=== PATIENT | female | born 1990 | race Caucasian/White ===

== ENCOUNTER 2024-04-22 19:51 | Outpatient (REF) | payer OTHER, SELFPAY | END 2024-04-22 19:52 | disposition home or self-care (01) | LOC: LAB 19:51 | PROVIDERS: Visit Provider Physician Assistant | DX: Z01.419 Encounter for gynecological examination (general) (routine) without abnormal findings (principal) | CPT/HCPCS: 87624; 88175 ==

== ENCOUNTER 2025-02-14 09:08 | Outpatient (OUT) | payer OTHER, SELFPAY ==
--- OUTSIDE RECORDS SUMMARY | 2025-02-14 09:12 | XMS_ITS | CCD ---
Author Organization [facility] Care Team Providers Care Senior Customer Service Representative Name Role Phone Genet Josue Unavailable Unavail able Li Guillen F Primary Care Provider Li Guillen F Primary Care Provider BOOM MCCARTHY Attending Unavailable VERA, JENNIE Referring Unavailable MANDI GUILLENACE F Primary Care Unavailable VERA, JENNIE Attending Unavailable ZMANDI SILVERACE F Primary Care Unavailable DIANE CASAREZ Attending Unavailable ELIANE, SHARMILA Attending Unavailable Unavailable Primary Care Provider UnavailJAMES Cavanaugh Primary Care Unavailable JAMES ROMERO Primary Care Unavailable ELIANE, Sharmila R Admitting Unavailable ELIANE, Sharmila R Attending Unavailable JAMES ROMERO Attending Unavailable JAMES ROMERO Admitting Unavailable JAMES ROMERO Primary Care Unavailable JAMES ROMERO M Primary Care Unavailable JAMES ROMERO Attending Unavailable Brianna Ashton Attending Unavailable JAMES ROMERO Primary Care Unavailable SANDRITA SEGOVIA Attending UnavailJAMES Cavanaugh Primary Care Unavailable SANDRITA SEGOVIA Attending UnavailJAMES Cavanaugh Primary Care Unavailable JAMES ROMERO Primary Care Unavailable SANDRITA SEGOVIA Attending UnavailASHISH Ramirez Primary Care Physician ELIANE, Sharmila R Attending Unavailable ELIANE, Sharmila R Admitting Unavailable ELIANE, Sharmila R Attending Unavailable ELIANE, Sharmila R Referring Unavailable ELIANE, Sharmila R Admitting Unavailable Daisha, Brianna L Admitting Unavailable Daisha, Brianna Araujo Attending Unavailable Daisha, Brianna L Attending Unavailable ELIANE, Sharmila R Attending Unavailable ELIANE, Sharmila R Admitting Unavailable ELIANE, Sharmila R Attending Unavailable Sharmila DEL RIO Admitting Unavailable Medications Current Medications Medication Drug Class(es) Dates Sig (Normalized) Sig (Original) letrozole 2.5 mg oral tablet (2 sources) Aromatase Inhibitor Start: 11-04-2024 End: 11-09-2024 take 1 tablet by mouth once daily letrozole (Femara) 2.5 MG chemo tablet Indications: Encounter for infertility , PCOS (polycystic ovarian syndrome) , Abnormal uterine bleeding (AUB) Take 1 tablet (2.5 mg total) by mouth Daily for 5 days. Take with or without food. 5 tablet 11/04/2024 11/09/2024 Active 24 hr metFORMIN hydrochloride 500 mg extended release oral tablet (2 sources) Biguanide Start: 11-04-2024 End: 11-04-2025 take 1 tablet by mouth every twenty-four hours at mealtime metFORMIN XR (Glucophage-XR) 500 MG 24 hr tablet Indications: PCOS (polycystic ovarian syndrome) , Abnormal uterine bleeding (AUB) Take 1 tablet (500 mg) by mouth in the evening. Take with meals Do not crush, chew, or split. 30 tablet 11 11/04/2024 11/04/2025 Active ondansetron 4 mg oral tablet (9 sources) Serotonin-3 Receptor Antagonist Start: 10-20-2024 take 1 tablet by mouth every six hours as needed for nausea ondansetron 4 mg Tab 4 mg = 1 tab(s), Oral, q6hr, PRN Nausea/Vomiting, # 10 tab(s), Refills(s) 0, Pharmacy: [facility], 166, cm, 07/25/24 9:47:00 EST, Height/Length Dosing, 92.6, kg, 07/25/24 9:47:00 EST, Weight Dosing Start Date: 10/20/24 Status: Ordered Quantity: 10.0 Unit: tab(s) Repeat number: 1 Start: 02-04-2021 ondansetron (Z OFRAN) 4 mg tablet Take 4 mg by mouth. 0 02/04/2021 Active Start: 09-02-2012 take 1 tablet by irene th every eight hours as needed ondansetron orally disintegrating 4 mg disintegrating tablet Take 1 tablet by mouth every 8 hours as needed for Nausea/Vomiting. 8 tablet 0 09/02/2012 Active ondansetron (Zof ran) 4 MG tablet Take 8 mg by mouth if needed for nausea or vomiting Active Comment on above: Take 1 tablet by irene th every 8 hours as needed for Nausea/Vomiting. Take 4 mg by mouth. tropicamide 10 mg/ml ophthalmic solution (1 source) Anticholinergic Start: 10-11-2021 End: 10-12-2021 tropicamide 1 % 1 Drop (MYDRIACYL) Completed/Discontinued Medications Medication Drug Class(es) Dates Sig (Normalized) Sig (Original) azithromycin 250 mg oral tablet (1 source) Macrolide Antimicrobial take 1 tablet by mouth once daily azithromycin 250 mg tablet Take 250 mg by mouth once daily. 0 Active Comment on above: Take 250 mg by mouth once daily. levonorgestrel 0.258921 mg/hr intrauterine system (1 source) Progestin, Progestin-containing Intrauterine Device levonorgestrel (MIRENA) 20 mcg/24 hours (7 yrs) 52 mg IUD 1 Each by INTRAUTERINE route. 0 Active Comment on above: 1 Each by INTRAUTERI NE route. phentermine hydrochloride 37.5 mg oral tablet (4 sources) Sympathomimetic Amine Anorectic Start: 07-25-2024 phentermine 37.5 mg Tab 37.5 mg = 1 tab(s), Oral, Daily, 30 EA, 0 Refill(s), TAKE 1 TABLET BY MOUTH EVERY MORNING (BEFORE BREAKFAST) FOR 30 DAYS., # 30 tab(s), Refills(s) 0, Pharmacy: [facility], 166, cm, 07/25/24 9:47:00 EST, Height/Length Dosing, 92.6, kg, 07/25/24 9:47:00 EST, Weight Dosing Start Date: 07/25/24 Status: Ordered Quantity: 30.0 Unit: tab(s) Repeat number: 1 predniSONE 20 mg oral tablet (1 source) Start: 09-02-2012 take 1 tablet by mouth twice daily predniSONE 20 mg tablet Take 1 tablet by mouth twice daily. 8 tablet 0 09/02/2012 Active Comment on above: Take 1 tablet by irene th twice daily. triamcinolone acetonide 0.001 mg/mg topical ointment (4 sources) Corticosteroid Start: 03-30-2021 triamcinolone acetonide (KENALOG) 0.1 % ointment triamcinolone (K enalog) 0.5 % cream Apply topically if needed Active Problems Active Problems Problem Classification Problem Date Documented Da te Episodic/Chronic Blindness and vision defects (2 sources) Disorder of refraction; Translations: [Unspecified disorder of refraction] Episodic Contraceptive and procreative management (2 sources) Patient encounter status; Translations: [Encounter for procreative management, unspecified] 11-04-2024 Episodic Other endocrine disorders (2 sources) Polycystic ovary syndrome; Translations: [Polycystic ovarian syndrome] 11-04-2024 Chronic Other endocrine disorders (2 sources) Disorder of endocrine system; Translations: [Endocrine disorder, unspecified] 11-04-2024 Episodic Other female genital disorders (2 sources) Abnormal uterine bleeding; Translations: [Abnormal uterine and vaginal bleeding, unspecified] 11-04-2024 Chronic Other nutritional; endocrine; and metabolic disorders (4 sources) Body mass index 30+ - obesity 07-25-2024 Chronic Other nutritional; endocrine; and metabolic disorders (4 sources) Obesity 06-16-2020 Chronic Other nutritional; endocrine; and metabolic disorders (4 sources) Weight gain 05-19-2020 Episodic Unclassified (2 sources) Contusion of lower back and pelvis, initial encounter / S30.0XXA(ICD-10) Onset: 10-08-2017 Unclassified (12 sources) Patient encounter status 05-10-2020 Past or Other Problems Problem Classification Problem Date Documented Da te Episodic/Chronic Fracture of lower limb (2 sources) Closed fracture of ankle; Translations: [Other fracture of unspecified lower leg, initial encounter for closed fracture] Onset: 08-08-2006 09-02-2012 Episodic Unclassified (1 source) Contusion of lower back and pelvis, initial encounter; Translations: [Contusion of lower back and pelvis, initial encounter] Onset: 10-08-2017 Results Test Name Value Interpretation Reference Range Facility DHEAon 12-30-2024 DHEA [Mass/Vol] 139 ng/dL Invalid Interpretation Code 31-701 [facility] Comment on above: Result Comment: This test was developed and its performance characteristics determined by [facility]. It has not been cleared or approved by the Food and Drug Administration. Performed at: [address] [id number] MD Everett Buckner Performed By: #### 1 [id number] #### [facility] [address] [place] [address] Progesteroneon 11-25-2024 Progesterone Lvl 5.59 ng/mL Invalid Interpretation Code [facility] Comment on above: Result Comment: 'F N ON FOLLICULAR = 0.10 - 0.60' 'LUTEAL = 3.00 - 17.5' 'MIDLUTEAL = 3.30 - 18.6' 'POST-MENOPAUSE = 0.10 - 0.40' '-FIRST TRIMESTER = 8.30 - 66.5' 'SECOND TRIMESTER = 18.9 - 66.1' 'THIRD TRIMESTER = 35.8 - 312.4' 'MALES = 0.14 - 2.06' Performed By: #### 2 [id number] #### [facility] [address] [place] [address] US Pelvis Non-OB Completeon 11-12-2024 US Pelvis Non-OB Complete Exam Date/Time: 11/11/2024 12:54 EST Reason for Exam: E28.2 Report IMPRESSION: Negative pelvic ultrasound. CLINICAL HISTORY: E28.2 COMPARISONS: None available. TECHNICAL FACTORS: Transabdominal and transvaginal sonography with transvaginal imaging was obtained to better assess pelvic anatomy. FINDINGS: Uterus: Normal in size, shape, and echogenicity. Endometrium: Normal in appearance. Right ovary: Normal in size, shape, and echogenicity. Color flow and Doppler without anomaly. Left ovary: Normal in size, shape, and echogenicity. Color flow and Doppler without anomaly. Free fluid: None Adnexal masses: None The uterus measurements and an estimated volume are: Uterus Length: 8.3 cm Uterus Width: 4.8 cm Uterus Height: 3.2 cm Uterus Volume: 66.9 cm3 Endometrium Thickness: 0.3 cm The right ovary measurements and an estimated volume are: Right Ovary Length: 3.4 cm Right Ovary Width: 2.3 cm Right Ovary Height: 2.2 cm Right Ovary Volume: 9.1 cm3 The left ovary measurements and an estimated volume are: Left Ovary Length: 3.5 cm Left Ovary Width: 2.6 cm Left Ovary Height: 2.3 cm Report Left Ovary Volume: 11.1 cm3 Ordering Provider: Sharmila DEL RIO FINAL REPORT Dictated: 11/12/2024 12:14 pm Desmond Quinteros MD Signed (Electronic Signature): 11/12/2024 12:14 pm Signed by: Desmond Quinteros MD Transcribed by: MARVA Technologist: Norman CLEMENS [facility] US Transvaginal Non-OBon US Transvaginal Non-OB Exam Date/Time: 11/11/2024 12:54 EST Reason for Exam: E28.2 Report See ultrasound pelvis non-OB for report of ultrasound pelvis transvaginal. Ordering Provider: Sharmila DEL RIO FINAL REPORT Dictated: 11/12/2024 12:14 pm Desmond Quinteros MD Signed (Electronic Signature): 11/12/2024 12:14 pm Signed by: Desmond Quinteros MD Transcribed by: MARVA Technologist: Norman CLEMENS [facility] Anti-Mullerian Hormone (AMH) on 11-10-2024 Mullerian inhibiting substance [Mass/Vol] 5.77 ng/mL Invalid Interpretation Code [facility] Comment on above: Result Comment: For assays employing antibodies, the possibility exists for interference by heterophile antibodies in the samples.1 1.Andre Araujo. Interferences in Immunoassays - still a threat. Clin. Chem. 2000; 46: 9786-1049. This test was developed and its performance characteristics determined by [employer] [facility]. It has not been cleared or approved by the Food and Drug Administration. Reference Range: Females 36 - 40y: 0.42 - 8.34 Median 1.69 AMH concentrations of >= 1.06 ng/mL is correlated with a better response to ovarian stimulation, produced more retrievable oocytes and higher odds of live according to Anjalier et al. Fertility and Sterility. 2010: 94:6696-9089. The current AMH test method correlates with the study method with a slope of 0.94. Females at risk of ovarian hyperstimulation syndrome or polycystic ovarian syndrome (PCOS) may exhibit elevated serum AMH concentrations. AMH levels from PCOS patients may be 2 to 5 fold higher than age-appropriate reference interval values. Granulosa cell tumors of the ovary may secrete AMH along with other tumor markers. Elevated AMH is not specific for malignancy, and the assay should not be used exclusively to diagnose or exclude an AMH-secreting ovarian tumor. Performed at: [facility] [address] [place], [place] [id number] MD Rajeev Lala Performed By: #### 1 [id number] #### [facility] [address] [place] [address] DHEAon 11-10-2024 DHEA [Mass/Vol] 101 ng/dL Invalid Interpretation Code 31-311 [facility] Comment on above: Result Comment: This test was developed and its performance characteristics determined by [facility]. It has not been cleared or approved by the Food and Drug Administration. Performed at: [address] [id number] MD Everett Buckner Performed By: #### 1 [id number] #### [facility] [address] [place] [address] DHEASon 11-10-2024 DHEA-S [Mass/Vol] 91.8 microgram/dL Invalid Interpretation Code 57.3-279.2 [facility] Comment on above: Result Comment: Perf ormed at: [address] [id number] PhD Bianca Gordon Performed By: #### 1 [id number] #### [facility] [address] [place] [address] FSHon 11-07-2024 Follitropin Qn 5.2 m[IU]/mL Invalid Interpretation Code [facility] Comment on above: Result Comment: Adul t Female Range Follicular phase 3.5 - 12.5 Ovulation phase 4.7 - 21.5 Luteal phase 1.7 - 7.7 Postmenopausal 25.8 - 134.8 Performed at: [address] [id number] PhD Bianca Gordon Performed By: #### 2 [id number] #### [facility] [address] [place] [address] LHon 11-07-2024 Lutropin Qn 11.1 m[IU]/mL Invalid Interpretation Code [facility] Comment on above: Result Comment: Adul t Female Range Follicular phase 2.4 - 12.6 Ovulation phase 14.0 - 95.6 Luteal phase 1.0 - 11.4 Postmenopausal 7.7 - 58.5 Performed at: [address] [id number] PhD Bianca Gordon Performed By: #### 2 [id number] #### [facility] [address] [place] [address] BhCG Quanton 11-05-2024 HCG.beta subunit Qn m[IU]/mL Normal 1-3 [facility] Comment on above: Result Comment: 'F N ON < 1 - 3' ' 0.2 - 1 WEEK = 5 TO 50' ' 1 - 2 WEEKS = 50 - 500' ' 2 - 3 WEEKS = 100 - 5000' ' 3 - 4 WEEKS = 500 - 11665' ' 4 - 5 WEEKS = 1000 - 09289' ' 5 - 6 WEEKS = 77759 - 240026' ' 6 - 8 WEEKS = 31587 - 827195' ' 8 - 12 WEEKS = 41695 - 119347' Performed By: #### 2 [id number] #### [facility] [address] [place] [address] CBC w/ Auto Diffon 5 Basophils/100 WBC (Bld) 0.6 % Normal 0.0-2.0 [facility] Comment on above: Performed By: #### 2 [id number] #### [facility] [address] [place] [address] Basophils/Leukocytes Auto (Bld) [Pure # fraction] 0.0 E9/L Normal 0.0-0.2 [facility] Comment on above: Performed By: #### 2 [id number] #### [facility] [address] [place] [address] Eosinophils (Bld) [#/Vol] 0.1 E9/L Normal 0.0-0.5 [facility] Comment on above: Performed By: #### 2 [id number] #### [facility] [address] [place] [address] Eosinophils/100 WBC (Bld) 0.7 % Normal 0.0-8.0 [facility] Comment on above: Performed By: #### 2 [id number] #### [facility] [address] [place] [address] Erythrocyte distribution width (RBC) [Ratio] 14.0 % Normal 10.9-14.2 [facility] Comment on above: Performed By: #### 2 [id number] #### [facility] [address] [place] [address] Hematocrit (Bld) [Volume fraction] 44.7 % Normal 34.0-46.0 [facility] Comment on above: Performed By: #### 2 [id number] #### [facility] [address] [place] [address] Hemoglobin (Bld) [Mass/Vol] 15.0 g/dL Normal 12.0-16.0 [facility] Comment on above: Performed By: #### 2 [id number] #### [facility] [address] [place] [address] Lymphocytes (Bld) [#/Vol] 2.3 E9/L Normal 1.0-4.0 [facility] Comment on above: Performed By: #### 2 [id number] #### [facility] [address] [place] [address] Lymphocytes/100 WBC (Bld) 26.2 % Normal 14.0-50.0 [facility] Comment on above: Performed By: #### 2 [id number] #### [facility] [address] [place] [address] MCH (RBC) [Entitic mass] 27.3 pg Normal 27.0-34.0 [facility] Comment on above: Performed By: #### 2 [id number] #### [facility] [address] [place] [address] MCHC (RBC) [Mass/Vol] 33.5 g/dL Normal 31.4-36.0 [facility] Comment on above: Performed By: #### 2 [id number] #### [facility] [address] [place] [address] MCV (RBC) [Entitic vol] 81.3 fL Normal 80.0-100.0 [facility] Comment on above: Performed By: #### 2 [id number] #### [facility] [address] [place] [address] Monocytes (Bld) [#/Vol] 0.5 E9/L Normal 0.2-1.0 [facility] Comment on above: Performed By: #### 2 [id number] #### [facility] [address] [place] [address] Neutrophils (Bld) [#/Vol] 5.7 E9/L Normal 2.0-7.5 [facility] Comment on above: Performed By: #### 2 [id number] #### [facility] [address] [place] [address] Neutrophils/100 WBC (Bld) 66.3 % Normal 36.0-75.0 [facility] Comment on above: Performed By: #### 2 [id number] #### [facility] [address] [place] [address] Platelet mean volume (Bld) [Entitic vol] 7.5 fL Normal 6.4-10.8 [facility] Comment on above: Performed By: #### 2 [id number] #### [facility] [address] [place] [address] Platelets (Bld) [#/Vol] 302.0 E9/L Normal 150.0-500.0 [facility] Comment on above: Performed By: #### 2 [id number] #### [facility] [address] [place] [address] RBC (Bld) [#/Vol] 5.5 E12/L Normal 4.3-5.9 [facility] Comment on above: Performed By: #### 2 [id number] #### [facility] [address] [place] [address] WBC corrected for nucl RBC Auto (Bld) [#/Vol] 8.6 E9/L Normal 4.0-11.0 [facility] Comment on above: Performed By: #### 2 [id number] #### [facility] [address] [place] [address] CHEMISTRYOrdered By: SYSTEM SYSTEM on 11-05-2024 Free T4 [Mass/Vol] 0.89 ng/dL Normal 0.58 - 1. 64 ng/dL [facility] HCG.beta subunit Qn mIU/mL Normal 1 - 3 mIU/mL Rem isol Chem Comment on above: Result Comment: 'F N ON < 1 - 3' ' 0.2 - 1 WEEK = 5 TO 50' ' 1 - 2 WEEKS = 50 - 500' ' 2 - 3 WEEKS = 100 - 5000' ' 3 - 4 WEEKS = 500 - 88484' ' 4 - 5 WEEKS = 1000 - 81056' ' 5 - 6 WEEKS = 31935 - 163564' ' 6 - 8 WEEKS = 05255 - 370920' ' 8 - 12 WEEKS = 14570 - 554357' TSH Qn 0.99 m[IU]/L Normal 0.34 - 5.60 mcIU/mL [facility] CHEMISTRYOrdered By: Catherine Armenta on 11-05-2024 HbA1c (Bld) [Mass fraction] 5.3 % Normal <=5.9% [facility]SS Free T4on 11-05-2024 Free T4 [Mass/Vol] 0.89 ng/dL Normal 0.58-1.64 [facility] Comment on above: Performed By: #### 2 [id number] #### [facility] [address] [place] [address] HEMATOLOGYOrdered By: SYSTEM SYSTEM on 11-05-2024 Basophils/100 WBC (Bld) 0.6 % Normal 0.0 - 2.0 % [facility] Heme Basophils/Leukocytes Auto (Bld) [Pure # fraction] 0.0 E9/L Normal 0.0 - 0.2 E9/L [facility] Eosinophils (Bld) [#/Vol] 0.1 E9/L Normal 0.0 - 0.5 E9/L [facility] Eosinophils/100 WBC (Bld) 0.7 % Normal 0.0 - 8.0 % [facility]e Erythrocyte distribution width (RBC) [Ratio] 14.0 % Normal 10.9 - 14.2 % [facility] Hematocrit (Bld) [Volume fraction] 44.7 % Normal 34.0 - 46.0 % [facility]e Hemoglobin (Bld) [Mass/Vol] 15.0 g/dL Normal 12.0 - 16.0 gm/dL [facility] Lymphocytes (Bld) [#/Vol] 2.3 E9/L Normal 1.0 - 4.0 E9/L [facility] Lymphocytes/100 WBC (Bld) 26.2 % Normal 14.0 - 50.0 % [facility] MCH (RBC) [Entitic mass] 27.3 pg Normal 27.0 - 34.0 pg [facility] Heme MCHC (RBC) [Mass/Vol] 33.5 g/dL Normal 31.4 - 36.0 gm/dL [facility] MCV (RBC) [Entitic vol] 81.3 fL Normal 80.0 - 100.0 fL [facility] Monocytes (Bld) [#/Vol] 0.5 E9/L Normal 0.2 - 1.0 E9/L [facility] Monocytes/100 WBC (Bld) 6.2 % Normal 4.0 - 14.0 % [facility] Neutrophils (Bld) [#/Vol] 5.7 E9/L Normal 2.0 - 7.5 E9/L [facility] Neutrophils/100 WBC (Bld) 66.3 % Normal 36.0 - 75.0 % [facility] Platelet mean volume (Bld) [Entitic vol] 7.5 fL Normal 6.4 - 10.8 fL [facility] Platelets (Bld) [#/Vol] 302.0 E9/L Normal 150.0 - 500.0 E9/L [facility] RBC (Bld) [#/Vol] 5.5 E12/L Normal 4.3 - 5.9 E12/L [facility] WBC corrected for nucl RBC Auto (Bld) [#/Vol] 8.6 E9/L Normal 4.0 - 11.0 E9/L [facility] [id number] 11-05-2024 HbA1c (Bld) [Mass fraction] 5.3 % Normal <=5.9 [facility] Comment on above: Performed By: #### 7 [id number] #### [facility] [address] [place] [address] Lab Miscellaneous-LCon 11-05 Lab Miscellaneous orderable test Invalid Interpretation Code [facility] Comment on above: Performed By: #### 1 [id number] #### [facility] [address] [place] [address] Lab Miscellaneous Orderable test Invalid Interpretation Code [facility] Comment on above: Performed By: #### 1 [id number] #### [facility] [address] [place] [address] Lab Miscellaneous Orderable test Invalid Interpretation Code [facility] Comment on above: Performed By: #### 1 [id number] #### [facility] [address] [place] [address] Test Code 69979 Invalid Interpretation Code [facility] Comment on above: Performed By: #### 1 [id number] #### [facility] [address] [place] [address] Test Code 533017 Invalid Interpretation Code [facility] Comment on above: Performed By: #### 1 [id number] #### [facility] [address] [place] [address] Test Name DHEA Invalid Interpretation Code [facility] Comment on above: Performed By: #### 1 [id number] #### [facility] [address] [place] [address] Test Name AMH Invalid Interpretation Code [facility] Comment on above: Performed By: #### 1 [id number] #### [facility] [address] [place] [address] Laboratory - Chemistry and C hemistry - challengeOrdered By: Maria Luisa Lutz on 11-05-2024 Sodium [Moles/Vol] 90391 mmol/L Invalid Interpretation Code [facility]OutsSS No Panel InformationOrdered By: Leia Foote on 11-05-2024 Lab Miscellaneous orderable test Invalid Interpretation Code [facility] No Panel InformationOrdered By: Maria Luisa Lutz on 11-05-2024 Test Name DHEA Invalid Interpretation Code [facility] Reference Laboratory Testing Ordered By: Maria Luisa Lutz on 11-05-2024 Sodium [Moles/Vol] 057935 mmol/L Invalid Interpretation Code [facility] Test Name AMH Invalid Interpretation Code [facility] TSHon 11-05-2024 TSH Qn 0.99 m[IU]/L Normal 0.34-5.60 [facility] Comment on above: Performed By: #### 2 [id number] #### [facility] [address] [place] [address] Family Medicine Office/Clini c Noteon 07-25-2024 Family Medicine Office/Clinic Note Family Medicine Office/Clinic Note Chief Complaint Weight Management HPI Staff Pt presents today for 4wk weight management follow up Re- Started on phentermine 07/02/24 Sleeping well:Yes, 6-8 hours Chest pain:No Tremors:No Headaches:No Heart fluttering:No Blurred Vision:No Starting Weight: 206.58lbs Weight this visit: 204lbs History of Present Illness Patient presents today for weight management.She started on Adipex in April but reports she took the medication for 2 weeks and then stopped because life happens. She denies any adverse effects to the medication when she was taking it. She is wanting to restart the Adipex. She reports she would like to lose about 15 -20 pounds. She reports she believes when she graduated high school she weighed 184. She has lost 2.86 pounds since her last visit. She denies any adverse effects to the medication and would like to continue on the medication. Review of Systems PHQ Score Initial Depression Screen Score: 0 SCORE Constitutional: no fever, no chills, no sweats, no weakness Respiratory: no shortness of breath, no cough, no orthopnea, no wheezing Cardiovascular: no chest pain, no palpitations, no edema Additional ROS info: Except as noted in the above Review of Systems and in the History of Present Illness all other systems have been reviewed and are negative or noncontributory. Physical Exam Vitals & Measurements T: 36.7 ???C(Oral) HR: 94(Peripheral) RR: 18 BP: 138/84 SpO2: 99% HT: 65 in HT: 166 cm WT: 92.6 kg WT: 203.72 lb BMI: 33.6 General: alert, no acute distress Cardiovascular: regular rate and rhythm, normal peripheral perfusion Respiratory: Lungs CTA, respirations non labored Extremities: no deformity, no trauma Neurological: oriented x 4, LOC appropriate for age speech normal Assessment/Plan 1. Encounter for weight management (Z76.89: Persons encountering health services in other specified circumstances) Continue Adipex - refill sent to the pharmacy OARRS reviewed and found to be appropriate Monitor weight at each visit f/u in 4 weeks 2. BMI 33.0-33.9,adult (Z68.33: Body mass index [BMI] 33.0-33.9, adult) The standard range for ages 18 and older is >=18.5 and < 25 kg/m2. Your BMI today was above this range, this falls in the overweight to obese category and there are medical benefits to weight loss. We can offer counselling, referral, and/or medical support in addressing this problem. Your BMI and weight management will be followed at subsequent visits. 3. Nonsmoker (Z78.9: Other specified health status) Continue is a non-smoker 4. Obesity (BMI 30-39.9) (E66.9: Obesity, unspecified) The standard range for ages 18 and older is >=18.5 and < 25 kg/m2. Your BMI today was above this range, this falls in the overweight to obese category and there are medical benefits to weight loss. We can offer counselling, referral, and/or medical support in addressing this problem. Your BMI and weight management will be followed at subsequent visits. Orders: phentermine, 37.5 mg = 1 tab(s), Oral, Daily, 30 EA, 0 Refill(s), TAKE 1 TABLET BY MOUTH EVERY MORNING (BEFORE BREAKFAST) FOR 30 DAYS., # 30 tab(s), Refills(s) 0, Pharmacy: [facility], 166, cm, 07/25/24 9:47:00 EST, Height/Length Dosing, 92.6, kg, 07/25/... Follow-up With When Contact Information ASHISH SEGOVIA CNP, FAM Within 4 weeks [address] [place] [address] [facility] (1) Additional Instructions: Weight management Patient Education Diet for Metabolic Syndrome Problem List/Past Medical History Ongoing Encounter for removal of intrauterine contraceptive device (IUD) Encounter for weight management Obesity Obesity (BMI 30-39.9) Weight gain Wellness examination Historical No qualifying data Procedure/Surgical History Cyst, Insertion of IUD. Medications phentermine 37.5 mg Tab, 37.5 mg= 1 tab(s), Oral, Daily Allergies No Known Allergies Social History Alcohol - Low Risk, 05/10/2020 Current. Wine. 1-2 times per month., 07/02/2024 Exercise - Does not exercise, 05/10/2020 Substance Abuse - Denies Substance Abuse, 05/10/2020 Never., 07/21/2024 Tobacco - Denies Tobacco Use, 05/10/2020 Never (less than 100 in lifetime) Tobacco Use:. Never Smokeless Tobacco Use:. Household tobacco concerns: No. Yes, 07/25/2024 Family History Family history is negative Immunizations Vaccine Date Status Comments influenza, unspecified formulation 06/18/2023 Given influenza virus vaccine, inactivated 06/18/2023 Recorded 2024-05-01: VIS DATE: 04/22/2021 SARS-CoV-2 (COVID-19) [id number] 09/15/2022 Recorded influenza virus vaccine, inactivated 07/10/2022 Recorded 2024-05-01: NULL diphtheria/pertussis , acel/tetanus adult 02/06/2022 Recorded 2024-05-01: VIS DATE: 04/22/2021 influenza virus vaccine, inactivated 09/08/2021 Recorded SARS-CoV-2 (COVID-19) mRNA-1273 vaccine 09/08/2021 Recorded influenza virus vaccine, inactivated 06/29/2021 Rec (more content not included)... Normal [facility] Comment on above: Result Comment: Elec tronically Signed By: ASHISH SEGOVIA CNP\.br\Date and Time Signed: 07/25/24 10:29 EST Family Medicine Office/Clini c Noteon 07-02-2024 Family Medicine Office/Clinic Note Family Medicine Office/Clinic Note HPI Staff Jason is a 34 year old female presenting for follow up weight management VIANEY started adipex 37.5mg Weight management Sleeping well:Yes, 6-8 hours Chest pain:No Tremors:No Headaches:No Heart fluttering:No Blurred Vision:No Starting Weight: 204.38 Weight last visit: 206. Weight this visit: questions/concerns: none will need her adipex refilled I have reviewed and verified the staff HPI to be accurate for this encounter. History of Present Illness Patient presents today in f/u for weight management. She started on Adipex in April but reports she took the medication for 2 weeks and then stopped because life happens. She denies any adverse effects to the medication when she was taking it. She is wanting to restart the Adipex. She reports she would like to lose about 15 -20 pounds. She reports she believes when she graduated high school she weighed 184. Review of Systems PHQ Score Initial Depression Screen Score: 0 SCORE Constitutional: no fever, no chills, no sweats, no weakness Skin: no Jaundice, no rash, no lesions, nopetechiae Respiratory: no shortness of breath, no cough, no orthopnea, no wheezing Cardiovascular: no chest pain, no palpitations, no edema Neurologic: no headache, no dizziness, no numbness, no weakness Psychiatric: no sleeping problems, no irritability, no mood swings/depression. Additional ROS info: Except as noted in the above Review of Systems and in the History of Present Illness all other systems have been reviewed and are negative or noncontributory. Physical Exam Vitals & Measurements T: 36.7 ?C(Oral) HR: 88(Peripheral) RR: 16 BP: 130/84 SpO2: 99% HT: 65 in HT: 166 cm WT: 93.9 kg WT: 206.58 lb BMI: 34.08 General: alert, no acute distress Cardiovascular: regular rate and rhythm, normal peripheral perfusion Respiratory: Lungs CTA, respirations non labored Extremities: no deformity, no trauma Neurological: oriented x 4, LOC appropriate for age speech normal Assessment/Plan 1. Encounter for weight management (Z76.89: Persons encountering health services in other specified circumstances) Discussed restarting Adipex at this visit- refill sent to the pharmacy OARRS reviewed and found to be appropriate Monitor weight at each visit f/u in 4 weeks 2. BMI 34.0-34.9,adult (Z68.34: Body mass index [BMI] 34.0-34.9, adult) The standard range for ages 18 and older is >=18.5 and < 25 kg/m2. Your BMI today was above this range, this falls in the overweight to obese category and there are medical benefits to weight loss. We can offer counselling, referral, and/or medical support in addressing this problem. Your BMI and weight management will be followed at subsequent visits. 3. Exogenous obesity (E66.09: Other obesity due to excess calories) The standard range for ages 18 and older is >=18.5 and < 25 kg/m2. Your BMI today was above this range, this falls in the overweight to obese category and there are medical benefits to weight loss. We can offer counselling, referral, and/or medical support in addressing this problem. Your BMI and weight management will be followed at subsequent visits. 4. Nonsmoker (Z78.9: Other specified health status) Encouraged to continue as a non-smoker Orders: phentermine, 37.5 mg = 1 tab(s), Oral, Daily, 30 EA, 0 Refill(s), TAKE 1 TABLET BY MOUTH EVERY MORNING (BEFORE BREAKFAST) FOR 30 DAYS., # 30 tab(s), Refills(s) 0, Pharmacy: [facility], 166, cm, 07/02/24 11:29:00 EDT, Height/Length Dosing, 93.9, kg, 07/02... Follow-up With When Contact Information ASHISH SEGOVIA CNP, FAM Within [address] [place] [phone] Business (1) Additional Instructions: Weight management Problem List/Past Medical History Ongoing Encounter for removal of intrauterine contraceptive device (IUD) Exposure to COVID-19 virus Obesity Weight gain Wellness examination Historical No qualifying data Procedure/Surgical History Cyst, Insertion of IUD. Medications phentermine 37.5 mg Tab, 37.5 mg= 1 tab(s), Oral, Daily Allergies No Known Allergies Social History Alcohol - Low Risk, 05/10/2020 Current. Wine. 1-2 times per month., 07/02/2024 Exercise - Does not exercise, 05/10/2020 Substance Abuse - Denies Substance Abuse, 05/10/2020 Current. Previous treatment: None., 07/02/2024 Tobacco - Denies Tobacco Use, 05/10/2020 Never (less than 100 in lifetime) Tobacco Use:., 07/02/2024 Family History Family history is negative Immunizations Vaccine Date Status Comments influenza virus vaccine, inactivated 06/18/2023 Recorded 2024-05-01: VIS DATE: 04/22/2021 SARS-CoV-2 (COVID-19) [id number] 09/15/2022 Recorded influenza virus vaccine, inactivated 07/10/2022 Recorded 2024-05-01: NULL diphtheria/pertussis , acel/tetanus adult 02/06/2022 Recorded 2024-05-01: VIS DATE: 04/22/2021 influenza virus vaccine, inactivated 09/08/2021 Recorded SARS-CoV-2 (COVID-19) (more content not included)... Normal [facility] Comment on above: Result Comment: Elec tronically Signed By: ASHISH SEGOVIA CNP\.br\Date and Time Signed: 07/02/24 11:53 EDT Ambulatory Visit Summaryon 0 05-01-2024 Ambulatory Visit Summary Ambulatory Visit Summary JASON CORONEL :1990 Visit Date:05/01/2024 Ambulatory Visit Instructions Your Diagnosis Encounter for weight management Non-smoker BMI 33.0-33.9,adult Class 1 obesity due to excess calories in adult Your Care Team Attending Physician - ASHISH SEGOVIA CNP Primary Care Physician - JAMES ROMERO CNP This Is Your Medications List phentermine (phentermine 37.5 mg Tab) Procedures Performed Cyst, Insertion of IUD. Discharge Vitals Temperature (Oral) 36.3 ?C Heart Rate (Peripheral) 84 Respiratory Rate 20 Blood Pressure 138/88 Height 166.58 cm Height 66 in Weight 92.9 kg Weight 204.38 lb BMI 33.48 Medications What When Instructions Unchanged phentermine (phentermine 37.5 mg Tab) 30 EA, 0 Refill(s), TAKE 1 TABLET BY MOUTH EVERY MORNING (BEFORE BREAKFAST) FOR 30 DAYS. Allergies No Known Allergies Problems Ongoing - Any problem that you are currently receiving treatment for. Encounter for removal of intrauterine contraceptive device (IUD) Exposure to COVID-19 virus Obesity Weight gain Wellness examination Patient Survey You may receive a survey via text or e-mail asking about your office visit. Please share your experience with us by completing your survey. We appreciate your feedback and thank you for choosing us for your care. [facility] Family Medicine Office/Clini c Noteon 05-01-2024 Family Medicine Office/Clinic Note Family Medicine Office/Clinic Note HPI Staff Jason is a 34 year old female presenting with wanting to start Adipex Med agreement signed today Drug test today History of Present Illness 34 year old patient presents today for weight management. She reports she has taken Adipex in the past and has done well on the medication. She reports she took it prior to October 2023 and she lost 20 lbs. She reports she would like to lose about 15 -20 pounds. She reports she believes when she graduated high school she weighed 184. Review of Systems PHQ Score Initial Depression Screen Score: 0 SCORE Constitutional: no fever, no chills, no sweats, no weakness Respiratory: no shortness of breath, no cough, no orthopnea, no wheezing Cardiovascular: no chest pain, no palpitations, no edema Additional ROS info: Except as noted in the above Review of Systems and in the History of Present Illness all other systems have been reviewed and are negative or noncontributory. Physical Exam Vitals & Measurements T: 36.3 ?C(Oral) HR: 84(Peripheral) RR: 20 BP: 138/88 SpO2: 97% HT: 66 in HT: 166.58 cm WT: 92.9 kg WT: 204.38 lb BMI: 33.48 General: alert, no acute distress Cardiovascular: regular rate and rhythm, normal peripheral perfusion Respiratory: Lungs CTA, respirations non labored Extremities: no deformity, no trauma Neurological: oriented x 4, LOC appropriate for age speech normal Assessment/Plan 1. Encounter for weight management (Z76.89: Persons encountering health services in other specified circumstances) Start phentermine 37.5 mg oone tablet po daily Medication Agreement completed OARRS reviewed and found to be appropriate Monitor weight at each visit f/u in 4 weeks 2. Non-smoker (Z78.9: Other specified health status) Encouraged to continue as a non-smoker 3. BMI 33.0-33.9,adult (Z68.33: Body mass index [BMI] 33.0-33.9, adult) The standard range for ages 18 and older is >=18.5 and < 25 kg/m2. Your BMI today was above this range, this falls in the overweight to obese category and there are medical benefits to weight loss. We can offer counselling, referral, and/or medical support in addressing this problem. Your BMI and weight management will be followed at subsequent visits. 4. Class 1 obesity due to excess calories in adult (E66.09: Other obesity due to excess calories) The standard range for ages 18 and older is >=18.5 and < 25 kg/m2. Your BMI today was above this range, this falls in the overweight to obese category and there are medical benefits to weight loss. We can offer counselling, referral, and/or medical support in addressing this problem. Your BMI and weight management will be followed at subsequent visits. Orders: phentermine, 37.5 mg = 1 tab(s), Oral, Daily, 30 EA, 0 Refill(s), TAKE 1 TABLET BY MOUTH EVERY MORNING (BEFORE BREAKFAST) FOR 30 DAYS., # 30 tab(s), Refills(s) 0, Pharmacy: [facility], 166.6, cm, 05/01/24 10:12:00 EDT, Height/Length Dosing, 92.9, kg, 08/... Follow-up No qualifying data available Problem List/Past Medical History Ongoing Encounter for removal of intrauterine contraceptive device (IUD) Exposure to COVID-19 virus Obesity Weight gain Wellness examination Historical No qualifying data Procedure/Surgical History Cyst, Insertion of IUD. Medications phentermine 37.5 mg Tab, 37.5 mg= 1 tab(s), Oral, Daily Allergies No Known Allergies Social History Alcohol - Low Risk, 05/10/2020 Current, 1-2 times per month, 05/10/2020 Exercise - Does not exercise, 05/10/2020 Substance Abuse - Denies Substance Abuse, 05/10/2020 Tobacco - Denies Tobacco Use, 05/10/2020 Never (less than 100 in lifetime) Tobacco Use:. Never Smokeless Tobacco Use:. Cigarettes, Household tobacco concerns: No., 05/01/2024 Immunizations Vaccine Date Status Comments influenza virus vaccine, inactivated 06/18/2023 Recorded 2024-05-01: VIS DATE: 04/22/2021 SARS-CoV-2 (COVID-19) [id number] 09/15/2022 Recorded influenza virus vaccine, inactivated 07/10/2022 Recorded 2024-05-01: NULL diphtheria/pertussis , acel/tetanus adult 02/06/2022 Recorded 2024-05-01: VIS DATE: 04/22/2021 influenza virus vaccine, inactivated 09/08/2021 Recorded SARS-CoV-2 (COVID-19) mRNA-1273 vaccine 09/08/2021 Recorded influenza virus vaccine, inactivated 06/29/2021 Recorded 2024-05-01: NULL SARS-CoV-2 (COVID-19) mRNA BNT-162b2 vax 11/30/2020 Recorded 2024-05-01: TPV23 SARS-CoV-2 (COVID-19) mRNA BNT-162b2 vax 11/09/2020 Recorded 2024-05-01: TPV23 SARS-CoV-2 (COVID-19) mRNA-1273 vaccine 10/12/2020 Recorded SARS-CoV-2 (COVID-19) mRNA-1273 vaccine 09/14/2020 Recorded influenza virus vaccine, inactivated 06/29/2020 Recorded influenza virus vaccine, inactivated 09/19/2019 Recorded influenza virus vaccine, inactivated 06/25/2018 Recorded influenza virus vaccine, inactivated 06/03/2015 Recorded influenza virus vaccine, inactivated 06/28/2013 Recorded diphtheria/pertussis , acel/tetanus adult 05/11/2011 Recorde (more content not included)... [facility] Comment on above: Result Comment: Elec tronically Signed By: LUCA REMY, ASHISH Hollis\.luis\Date and Time Signed: 05/01/24 11:41 EDT Cytology Cervical or vaginal smear or scraping studyon 04-22-2024 [facility] Ambulatory Visit Summaryon 0 03-25-2024 Ambulatory Visit Summary Ambulatory Visit Summary JASON WHITE :1990 Visit Date:03/25/2024 Ambulatory Visit Instructions Your Diagnosis Encounter for removal of intrauterine contraceptive device (IUD) BMI 32.0-32.9,adult Non-smoker Your Care Team Attending Physician - Brianna Lawson Primary Care Physician - JAMES ROMERO CNP Procedures Performed Cyst, Insertion of IUD. Discharge Vitals Heart Rate (Peripheral) 78 Respiratory Rate 18 Blood Pressure 132/86 Height 166.58 cm Height 66 in Weight 88.8 kg Weight 195.36 lb BMI 32 Allergies No Known Allergies Problems Ongoing - Any problem that you are currently receiving treatment for. Encounter for removal of intrauterine contraceptive device (IUD) Exposure to COVID-19 virus Obesity Weight gain Wellness examination Patient Survey You may receive a survey via text or e-mail asking about your office visit. Please share your experience with us by completing your survey. We appreciate your feedback and thank you for choosing us for your care. [facility] Family Medicine Office/Clini c Noteon 03-25-2024 Family Medicine Office/Clinic Note Family Medicine Office/Clinic Note HPI Staff Jason is a 34 year old female presenting for IUD removal Pt is here today to have her IUD Mirena removed as she would like to try and have a baby History of Present Illness pt presents today to have IUD removed Review of Systems PHQ Score Initial Depression Screen Score: 0 SCORE Physical Exam Vitals & Measurements HR: 78(Peripheral) RR: 18 BP: 132/86 HT: 66 in HT: 166.58 cm WT: 88.8 kg WT: 195.36 lb BMI: 32 General: alert, no acute distress ENMT: oral mucosa moist, no pharyngeal erythema or exudate Cardiovascular: regular rate and rhythm, normal peripheral perfusion Respiratory: Lungs CTA, respirations non labored Extremities: no deformity, no trauma Neurological: oriented x 4, LOC appropriate for age, CN II-XII intact, motor strength equal & normal bilaterally, speech normal IUD string visible Procedure Time out complete. pt in lithotomy position. IUD removed without difficulty. Mirena IUD was intact when removed. bleeding was minimal pt tolerated well. standard post procedure care discussed. Assessment/Plan 1. Encounter for removal of intrauterine contraceptive device (IUD) (Z30.432: Encounter for removal of intrauterine contraceptive device) IUD removed without difficulty. see procedure note for details. pt would like to try to conceive for a few months. If she does not conceive she may consider reinsertion. all questions answered. RTC as needed Ordered: Removal IUD [id number] 2. BMI 32.0-32.9,adult (Z68.32: Body mass index [BMI] 32.0-32.9, adult) BMI education given 3. Non-smoker (Z78.9: Other specified health status) continue not smoking Follow-up No qualifying data available Problem List/Past Medical History Ongoing Encounter for removal of intrauterine contraceptive device (IUD) Exposure to COVID-19 virus Obesity Weight gain Wellness examination Historical No qualifying data Procedure/Surgical History Cyst, Insertion of IUD. Medications No active medications Allergies No Known Allergies Social History Alcohol - Low Risk, 05/10/2020 Current, 1-2 times per month, 05/10/2020 Exercise - Does not exercise, 05/10/2020 Substance Abuse - Denies Substance Abuse, 05/10/2020 Tobacco - Denies Tobacco Use, 05/10/2020 Never (less than 100 in lifetime) Tobacco Use:. Never Smokeless Tobacco Use:. Household tobacco concerns: No., 03/25/2024 Immunizations Vaccine Date Status influenza virus vaccine, inactivated 06/29/2020 Recorded Normal [facility] Comment on above: Result Comment: Elec tronically Signed By: Daisha MILLER, Brianna Araujo\.br\Date and Time Signed: 03/25/24 13:14 EDT CBC w/ Auto Diffon 4 Basophils/100 WBC (Bld) 0.5 % Normal 0.0-2.0 [facility] Comment on above: Performed By: #### 2 [id number], [id number], [id number], [id number] #### [facility] [address] [place] [address] Basophils/Leukocytes Auto (Bld) [Pure # fraction] 0.0 E9/L Normal 0.0-0.2 [facility] Comment on above: Performed By: #### 2 [id number], [id number], [id number], [id number] #### [facility] [address] [place] [address] Eosinophils (Bld) [#/Vol] 0.1 E9/L Normal 0.0-0.5 [facility] Comment on above: Performed By: #### 2 148093, [id number], 5755447, 7753545 #### [facility] [address] [place] [address] Eosinophils/100 WBC (Bld) 0.8 % Normal 0.0-8.0 [facility] Comment on above: Performed By: #### 2 831087, [id number], 2652130, [id number] #### [facility] [address] [place] [address] Erythrocyte distribution width (RBC) [Ratio] 13.6 % Normal 10.9-14.2 [facility] Comment on above: Performed By: #### 2 407387, [id number], 0483481, 8909845 #### [facility] [address] [place] [address] Hematocrit (Bld) [Volume fraction] 46.6 % High 34.0-46.0 [facility] Comment on above: Performed By: #### 2 430639, [id number], 7255681, 1021279 #### [facility] [address] [place] [address] Hemoglobin (Bld) [Mass/Vol] 15.6 g/dL Normal 12.0-16.0 [facility] Comment on above: Performed By: #### 2 394733, [id number], 9715264, 7301260 #### [facility] [address] [place] [address] Lymphocytes (Bld) [#/Vol] 2.3 E9/L Normal 1.0-4.0 [facility] Comment on above: Performed By: #### 2 379312, [id number], 2384291, 2391825 #### [facility] [address] [place] [address] Lymphocytes/100 WBC (Bld) 28.3 % Normal 14.0-50.0 [facility] Comment on above: Performed By: #### 2 135160, [id number], 9145548, 8846931 #### [facility] [address] [place] [address] MCH (RBC) [Entitic mass] 28.4 pg Normal 27.0-34.0 [facility] Comment on above: Performed By: #### 2 574511, [id number], 1243522, 0976037 #### [facility] [address] [place] [address] MCHC (RBC) [Mass/Vol] 33.5 g/dL Normal 31.4-36.0 [facility] Comment on above: Performed By: #### 2 402607, [id number], 9830910, 3327072 #### [facility] [address] [place] [address] MCV (RBC) [Entitic vol] 84.7 fL Normal 80.0-100.0 [facility] Comment on above: Performed By: #### 2 603945, 83281514, 2618585, 7900075 #### [facility] [address] [place] [address] Monocytes (Bld) [#/Vol] 0.6 E9/L Normal 0.2-1.0 [facility] Comment on above: Performed By: #### 2 106800, [id number], 2899656, 1932166 #### [facility] [address] [place] [address] Neutrophils (Bld) [#/Vol] 5.2 E9/L Normal 2.0-7.5 [facility] Comment on above: Performed By: #### 2 594178, 34961678, 8163982, 5571325 #### [facility] [address] [place] [address] Neutrophils/100 WBC (Bld) 63.4 % Normal 36.0-75.0 [facility] Comment on above: Performed By: #### 2 194071, [id number], 5290826, 1447207 #### [facility] [address] [place] [address] Platelet mean volume (Bld) [Entitic vol] 7.1 fL Normal 6.4-10.8 [facility] Comment on above: Performed By: #### 2 243016, [id number], 5430355, 7853540 #### [facility] [address] [place] [address] Platelets (Bld) [#/Vol] 287.0 E9/L Normal 150.0-500.0 [facility] Comment on above: Performed By: #### 2 415865, [id number], 3894175, 6821869 #### [facility] [address] [place] [address] RBC (Bld) [#/Vol] 5.5 E12/L Normal 4.3-5.9 [facility] Comment on above: Performed By: #### 2 703436, [id number], 0366167, 6071442 #### [facility] [address] [place] [address] WBC corrected for nucl RBC Auto (Bld) [#/Vol] 8.2 E9/L Normal 4.0-11.0 [facility] Comment on above: Performed By: #### 2 120230, 86965266, 6586393, 0378179 #### [facility] [address] [place] [address] CMPon 01-12-2024 Calcium [Mass/Vol] 9.2 mg/dL Normal 8.9-11.1 [facility] Comment on above: Performed By: #### 2 171427, 92539286, 0026259, 7024186 #### [facility] [address] [place] [address] Chloride [Moles/Vol] 105 mmol/L Normal 101-111 [facility] Comment on above: Performed By: #### 2 938497, 23706718, 1234546, 6895689 #### [facility] [address] [place] [address] Glucose [Mass/Vol] 89 mg/dL Normal 55-199 [facility] Comment on above: Performed By: #### 2 109417, [id number], 6137095, 4566532 #### [facility] [address] [place] [address] Potassium [Moles/Vol] 3.9 mmol/L Normal 3.5-5.3 [facility] Comment on above: Performed By: #### 2 445906, [id number], 9216281, 7879588 #### [facility] [address] [place] [address] Sodium [Moles/Vol] 138 mmol/L Normal 135-145 [facility] Comment on above: Performed By: #### 2 460456, [id number], 8236557, [id number] #### [facility] [address] [place] [address] Urea nitrogen [Mass/Vol] 15 mg/dL Normal 5-21 [facility] Comment on above: Performed By: #### 2 381010, [id number], 5337094, 2968150 #### [facility] [address] [place] [address] Anion gap [Moles/Vol] 12 mmol/L Normal 6-16 [facility] Comment on above: Performed By: #### 2 083137, 01019219, 5119515, 4560210 #### [facility] [address] [place] [address] CO2 [Moles/Vol] 25 mmol/L Normal 21-31 [facility] Comment on above: Performed By: #### 2 388943, [id number], 5846812, 6110634 #### [facility] [address] [place] [address] Creatinine [Mass/Vol] 0.7 mg/dL Normal 0.5-1.3 [facility] Comment on above: Performed By: #### 2 263475, 32550674, 4068271, 8239762 #### [facility] [address] [place] [address] Urea nitrogen/Creatinine [Mass ratio] 21 No Units High 10-20 [facility] Comment on above: Performed By: #### 2 672914, [id number], 5745192, 5778328 #### [facility] [address] [place] [address] Albumin [Mass/Vol] 4.3 g/dL Normal 3.3-5.0 [facility] Comment on above: Performed By: #### 2 377181, 73281911, 1863004, 7358416 #### [facility] [address] [place] [address] Albumin/Globulin (S) [Mass conc ratio] 1.4 Normal 1.1-2.2 [facility] Comment on above: Performed By: #### 2 539717, 94790899, 9441729, 0181455 #### [facility] [address] [place] [address] ALP [Catalytic activity/Vol] 64 Int._Unit/L Normal 21-98 [facility] Comment on above: Performed By: #### 2 054790, 11330555, 9014721, 2489646 #### [facility] [address] [place] [address] ALT No additional P-5'-P [Catalytic activity/Vol] 11 Int._Unit/L Normal 6-46 [facility] Comment on above: Performed By: #### 2 486136, 64885083, 5153973, 4183856 #### [facility] [address] [place] [address] AST [Catalytic activity/Vol] 13 Int._Unit/L Normal 5-43 [facility] Comment on above: Performed By: #### 2 898238, 12860789, 8942496, 5577659 #### [facility] [address] [place] [address] Bilirubin [Mass/Vol] 0.5 mg/dL Normal 0.0-1.1 [facility] Comment on above: Performed By: #### 2 189945, 50057933, 7130627, 4037786 #### [facility] [address] [place] [address] Globulin (S) [Mass/Vol] 3.1 g/dL Normal 1.4-4.0 [facility] Comment on above: Performed By: #### 2 154364, 59590000, 3669481, 0020767 #### [facility] [address] [place] [address] Protein [Mass/Vol] 7.4 g/dL Normal 6.0-7.8 [facility] Comment on above: Performed By: #### 2 268115, 84366658, 0973297, 6566858 #### [facility] [address] [place] [address] Consent for Treatmenton 12-17 Consent for Treatment [id number] #1.00TIFF Normal [facility] Lipid Panelon 01-12-2024 Cholesterol [Mass/Vol] 206 mg/dL High 120-200 [facility] Comment on above: Performed By: #### 2 162415, 43189185, 5582983, 6912352 #### [facility] [address] [place] [address] Cholesterol in HDL [Mass/Vol] 58 mg/dL Invalid Interpretation Code [facility] Comment on above: Result Comment: '>= 60 LOW RISK' '<= 40 HIGH RISK' Performed By: #### 2 311144, 33957543, 4330476, 2192872 #### [facility] [address] [place] [address] Cholesterol in LDL [Mass/Vol] 150 mg/dL High <=129 [facility] Comment on above: Performed By: #### 2 354274, 54468369, 2594071, 0724408 #### [facility] [address] [place] [address] Cholesterol in VLDL [Mass/Vol] 16 mg/dL Normal 7-40 [facility] Comment on above: Performed By: #### 2 570779, 41041732, 1774275, 3640930 #### [facility] [address] [place] [address] Triglyceride [Mass/Vol] 79 mg/dL Normal <=149 [facility] Comment on above: Performed By: #### 2 213065, 39115956, 8751460, 8345294 #### [facility] [address] [place] [address] Physician Orderon 01-12-2024 Physician Order [id number]#1.00TIFF Normal [facility] eGFRon 01-12-2024 eGFR 115 mL/min/1.73 m2 Normal >=59 [facility] Comment on above: Order Comment: Order added by Discern Expert. Performed By: #### 2 360101, 66395396, 9107981, 7661805 #### [facility] [address] [place] [address] CBC With Platelet and Differ entialon 08-16-2022 Basophils (Bld) [#/Vol] 0.1 10*3/uL Normal 0.0-0.2 [facility] Comment on above: Performed By: #### C BCWD #### [facility] [address] [place] [address] Basophils/100 WBC (Bld) 0.7 % Normal [facility] Comment on above: Performed By: #### C BCWD #### [facility] [address] [place] [address] Eosinophils (Bld) [#/Vol] 0.1 10*3/uL Normal 0.0-0.7 [facility] Comment on above: Performed By: #### C BCWD #### [facility] [address] [place] [address] Eosinophils/100 WBC (Bld) 1.0 % Normal [facility] Comment on above: Performed By: #### C BCWD #### [facility] [address] [place] [address] Erythrocyte distribution width (RBC) [Ratio] 13.5 % Normal 11.5-14.5 [facility] Comment on above: Performed By: #### C BCWD #### [facility] [address] [place] [address] Hematocrit (Bld) [Volume fraction] 44.1 % Normal 37.0-47.0 [facility] Comment on above: Performed By: #### C BCWD #### [facility] [address] [place] [address] Hemoglobin (Bld) [Mass/Vol] 14.9 g/dL Normal 12.0-16.0 [facility] Comment on above: Performed By: #### C BCWD #### [facility] [address] [place] [address] Lymphocytes (Bld) [#/Vol] 2.3 10*3/uL Normal 1.0-4.8 [facility] Comment on above: Performed By: #### C BCWD #### [facility] [address] [place] [address] Lymphocytes/100 WBC (Bld) 28.7 % Normal [facility] Comment on above: Performed By: #### C BCWD #### [facility] [address] [place] [address] MCH (RBC) [Entitic mass] 28.4 pg Normal 27.0-31.3 [facility] Comment on above: Performed By: #### C BCWD #### [facility] [address] [place] [address] MCHC 33.8 % Normal 33.0-37.0 [facility] Comment on above: Performed By: #### C BCWD #### [facility] [address] [place] [address] MCV (RBC) [Entitic vol] 84.2 fL Normal 79.4-94.8 [facility] Comment on above: Performed By: #### C BCWD #### [facility] [address] [place] [address] Monocytes (Bld) [#/Vol] 0.5 10*3/uL Normal 0.2-0.8 [facility] Comment on above: Performed By: #### C BCWD #### [facility] [address] [place] [address] Monocytes/100 WBC (Bld) 6.8 % Normal [facility] Comment on above: Performed By: #### C BCWD #### [facility] [address] [place] [address] Neutrophils (Bld) [#/Vol] 5.0 10*3/uL Normal 1.4-6.5 [facility] Comment on above: Performed By: #### C BCWD #### [facility] [address] [place] [address] Neutrophils/100 WBC (Bld) 62.8 % Normal [facility] Comment on above: Performed By: #### C BCWD #### [facility] [address] [place] [address] Platelets (Bld) [#/Vol] 271 10*3/uL Normal 130-400 [facility] Comment on above: Performed By: #### C BCWD #### [facility] [address] [place] [address] RBC (Bld) [#/Vol] 5.23 10*6/uL Normal 4.20-5.40 [facility] Comment on above: Performed By: #### C BCWD #### [facility] [address] [place] [address] WBC (Bld) [#/Vol] 7.9 10*3/uL Normal 4.8-10.8 [facility] Comment on above: Performed By: #### C BCWD #### [facility] [address] [place] [address] Comprehensive Metabolic Pane chantal 08-16-2022 Albumin [Mass/Vol] 4.3 g/dL Normal 3.5-4.6 [facility] Comment on above: Performed By: #### C MP #### [facility] [address] [place] [address] ALP [Catalytic activity/Vol] 72 U/L Normal 40-130 [facility] Comment on above: Performed By: #### C MP #### [facility] [address] [place] [address] ALT [Catalytic activity/Vol] 15 U/L Normal 0-33 [facility] Comment on above: Performed By: #### C MP #### [facility] [address] [place] [address] Anion gap [Moles/Vol] 12 mmol/L Normal 9-15 [facility] Comment on above: Performed By: #### C MP #### [facility] [address] [place] [address] AST [Catalytic activity/Vol] 19 U/L Normal 0-35 [facility] Comment on above: Performed By: #### C MP #### [facility] [address] [place] [address] Bilirubin [Mass/Vol] 0.3 mg/dL Normal 0.2-0.7 [facility] Comment on above: Performed By: #### C MP #### [facility] [address] [place] [address] Calcium [Mass/Vol] 9.3 mg/dL Normal 8.5-9.9 [facility] Comment on above: Performed By: #### C MP #### [facility] [address] [place] [address] Chloride [Moles/Vol] 104 mmol/L Normal 95-107 [facility] Comment on above: Performed By: #### C MP #### [facility] [address] [place] [address] CO2 [Moles/Vol] 26 mmol/L Normal 20-31 [facility] Comment on above: Performed By: #### C MP #### [facility] [address] [place] [address] Creatinine [Mass/Vol] 0.73 mg/dL Normal 0.50-0.90 [facility] Comment on above: Performed By: #### C MP #### [facility] [address] [place] [address] GFR >60.0 Normal >60 [facility] Comment on above: Result Comment: Dia kimkatrin calculator link https://www.kidney.org/professionals/kdoqi/gfr_calculatorped Effective Jun 19, 2022 These results are not intended for use in patients <18 years of age. eGFR results are calculated without a race factor using the 2020 CKD-EPI equation. Careful clinical correlation is recommended, particularly when comparing to results calculated using previous equations. The CKD-EPI equation is less accurate in patients with extremes of muscle mass, extra-renal metabolism of creatinine, excessive creatinine ingestion, or following therapy that affects renal tubular secretion. Performed By: #### C MP #### [facility] [address] [place] [address] Globulin (S) [Mass/Vol] 2.8 g/dL Normal 2.3-3.5 [facility] Comment on above: Performed By: #### C MP #### [facility] [address] [place] [address] Glucose [Mass/Vol] 90 mg/dL Normal 70-99 [facility] Comment on above: Performed By: #### C MP #### [facility] [address] [place] [address] Potassium [Moles/Vol] 4.2 mmol/L Normal 3.4-4.9 [facility] Comment on above: Performed By: #### C MP #### [facility] [address] [place] [address] Protein [Mass/Vol] 7.1 g/dL Normal 6.3-8.0 [facility] Comment on above: Performed By: #### C MP #### [facility] [address] [place] [address] Sodium [Moles/Vol] 142 mmol/L Normal 135-144 [facility] Comment on above: Performed By: #### C MP #### [facility] [address] [place] [address] Urea nitrogen [Mass/Vol] 12 mg/dL Normal 6-20 [facility] Comment on above: Performed By: #### C MP #### [facility] [address] [place] [address] Lipid Panelon 08-16-2022 Cholesterol [Mass/Vol] 221 mg/dL Critically high 0-199 [facility] Comment on above: Result Comment: ATP III Cholesterol Classification is Borderline High. Performed By: #### L IPID #### [facility] [address] [place] [address] Cholesterol in HDL [Mass/Vol] 51 mg/dL Normal 40-59 [facility] Comment on above: Result Comment: ATP III HDL Cholesterol Classification is Desirable. Expected Values: Males: >55 = No Risk 35-55 = Moderate Risk <35 = High Risk Females: >65 = No Risk 45-65 = Moderate Risk <45 = High Risk NCEP Guidelines: Third Report January 2001 >59 = negative risk factor for CHD <40 = major risk factor for CHD Performed By: #### L IPID #### [facility] [address] [place] [address] Cholesterol in LDL [Mass/Vol] 149 mg/dL Critically high 0-129 [facility] Comment on above: Result Comment: ATT III Classification is Borderline High. Performed By: #### L IPID #### [facility] [address] [place] [address] Triglyceride [Mass/Vol] 105 mg/dL Normal 0-150 [facility] Comment on above: Result Comment: ATP III Triglycerides Classification is Normal. Performed By: #### L IPID #### [facility] [address] [place] [address] CNPNon 10-18-2021 CNPN Telephone (OPHTNR) SPARTAJSAON ([id number]) 1990 F Date Time Provider Department 10/18/21 JENNIE GAMEZ OPHTNR During your visit today, we recorded the following information about you: Jennie Gamez, LIAM 10/18/2021 1:28 PM Signed Spoke to patient. Finalize Prec[facility] One. Received records from [facility]. 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 - ondansetron (ZOFRAN) 4 mg tablet Take 4 mg by mouth. - levonorgestrel (MIRENA) 20 mcg/24 hours (7 yrs) 52 mg IUD 1 Each by INTRAUTERINE route. Problem List As Of Date 10/18/2021 Noted Resolved FX ANKLE NOS-CLOSED [S82.899A] 08/08/2006 Encounter Status:Closed by JENNIE GAMEZ on 10/18/21 Normal [facility] SARS-CoV-2 (COVID-19) RT-PCR on 07-05-2021 SARS-CoV-2 (COVID-19) RNA OLGA+probe Ql (Unsp spec) Positive Abnormal [facility] Comment on above: Order Comment: Thomas garibay Result Comment: POSI TIVE: SARS-CoV-2 RNA was detected - Interpretation: A positive result indicates severe acute respiratory syndrome coronavirus 2 (SARS-CoV-2) RNA is present. Clinical correlation with patient history and other diagnostic information is necessary to determine patient infection status. Positive results do not rule out bacterial infection or co-infection with other viruses. - Method: Real-time reverse transcriptase PCR amplification for the qualitative detection of the ORF1 a/b non-structural region that is unique to SARS-CoV-2 and a conserved region in the structural protein envelope E-gene for pickard-Sarbecovirus detection using the Gianfranco SARS-CoV-2 assay on the Fernanda Gianfranco 6800 System. - Comment: This test has received FDA Emergency Use Authorization (EUA) and has been verified by [facility]. This test is only authorized for the duration of the public health emergency declaration and the circumstances that exist to justify the authorization of the emergency use of in vitro diagnostic tests for the detection of SARS-CoV-2 virus and/or diagnosis of COVID-19 infection under section 564(b)(1) of the Act, 21 U.S.C. 360bbb-3(b)(1), unless the authorization is terminated or revoked sooner. This test has not been FDA cleared or approved. Results should be used in conjunction with clinical findings, and should not form the sole basis for a diagnosis or treatment decision. - Fact Sheets for this EUA can be found at the following links: For Healthcare Providers: www.[employer].gov/BuzzDoes/310974/download For Patients: www.[employer].gov/BuzzDoes/289591/download - Reference Value: Negative Performed By: #### C OVID #### [place] [address] Progress Noteon 01-24-2021 [employer]ycler Authentication Interface Message Text GYNECOLOGY OFFICE VISIT Accompanying person: History: Chief Complaint: Well-woman exam History of Present Illness: Jason White is a 31 y.o. female No obstetric history on file. here for a well-woman exam. No complaints. Pt has IUD in since 2019. Has never had an abnormal Pap. Gynecologic History No LMP recorded. Menarche: 9 y/o Sexually active?: yes Pain with intercourse?: -- Contraception: IUD History of STI?: -- Last Pap: 2019 Results: cytology - normal; HRHPV - Comment: Last Mammogram: Results: OB History No obstetric history on file. Patient's medications, allergies, past medical, surgical, , social, and family histories were reviewed and updated as appropriate. Review of Systems ROS PAIN ASSESSMENT: Negative for pain, history of chronic pain, or current treatment for a chronic pain condition. 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 Appearance: Normal appearance. She is not ill-appearing or toxic-appearing. HENT: Head: Normocephalic and atraumatic. Nose: No congestion or rhinorrhea. Eyes: General: No scleral icterus. Right eye: No discharge. Left eye: No discharge. Extraocular Movements: Extraocular movements intact. Cardiovascular: Rate and Rhythm: Normal rate and regular rhythm. Pulses: Normal pulses. Heart sounds: Normal heart sounds. No murmur heard. No friction rub. No gallop. Pulmonary: Effort: Pulmonary effort is normal. No respiratory distress. Breath sounds: No wheezing. Chest: Chest wall: No tenderness. Breasts: Barry Score is 5. Breasts are symmetrical. Right: Normal. Left: Normal. Musculoskeletal: Cervical back: Neck supple. No rigidity or tenderness. Lymphadenopathy: Cervical: No cervical adenopathy. Upper Body: Right upper body: No supraclavicular, axillary or pectoral adenopathy. Left upper body: No supraclavicular, axillary or pectoral adenopathy. Neurological: Mental Status: She is alert. Pelvic Exam: [deferred] Perineum: Vulva: Vagina: Cervix: Uterus: Adnexa: Incision: Assessment/ Plan: 1. Well-woman exam a. Pap not needed this year. Awaiting last Pap result to be faxed. Next Pap smear will depend on faxed results. Disposition/ Follow-up: Return to office in 1 year for another well-woman exam. The total time spent on patient care today: -- minutes. - Chart review and preparation: -- minutes. - Face to face: -- minutes. - Documentation and care coordination: -- minutes. Normal [facility] Quantiferon TB Goldon 2020 Quantiferon TB Gold Indeterminate Normal Negative [facility] Comment on above: Result Comment: An I ndeterminate result indicates that the positive control value was below an acceptable value, thus the TB result may not be interpreted. An indeterminate result does NOT mean the paient is borderline for TB exposure; it means his or her TB status cannot be determined. The two primary causes of indeterminate results are: 1. The patient is immunocompromised, either by medication or disease. 2. Incorrect specimen collection or processing. Clinical correlation is required for proper interpretation of an indeterminate result and whether or not a repeat assay would be useful. Please address questions to Dr. Alexander Jaimes or Testing Performed: [facility]. [address] [place] [address] Performed By: #### Q UTBG #### [address] [address] SPINE, LUMBOSACRAL; MIN 4 EWSon 10-08-2017 SPINE, LUMBOSACRAL; MIN 4 VIEWS Name: JASON WHITE STUDY:SPINE, LUMBOSACRAL; MIN 4 VIEWS; 10/08/2017 10:50 am INDICATION:Signs/Sym ptoms: Lower lumbar tenderness. COMPARISON:None. ORDERING CLINICIAN:GENET JOSUE FINDINGS:Alignment: AP alignment is maintained Disc levels: Maintained Bony structures: The bony structures are intact there however doesappear to be partial lumbar lumbarization of the S1 vertebral body,presumed for nomenclature. Other findings: None significant IMPRESSION:Unremarka ble exam.Electronically signed by: KIN DELGADO MD Normal [facility] Vital Signs Date Time Vital Sign Value Performing Clinician Myron prince 11-04-2024 08:39-0500 Body weight 98.88 kg SharmilaBelly Balloto DO Work Phone: [facility] 11-04-2024 08:39-0500 Diastolic blood pressure 78 mm[Hg] Sharmila Eliane DO Work Phone: [facility] 11-04-2024 08:39-0500 Systolic blood pressure 122 mm[Hg] Sharmila Eliane DO Work Phone: [facility] Encounters Encounter Date Encounter Type Care Provider Facility Start: 01-20-2025 End: 01-20-2025 ambulatory Sharmila R ELIANE Facility:[facility] Start: 12-22-2024 End: 12-22-2024 ambulatory Sharmila R ELIANE Facility:[facility] Start: 12-22-2024 End: 12-22-2024 Lab Drop off Sharmila R ELIANE [facility] Start: 11-24-2024 End: 11-24-2024 Lab Drop off Brianna L Daisha [facility] Start: 11-24-2024 End: 11-24-2024 ambulatory Brianna L Daisha Facility:[facility] Start: 11-11-2024 End: 11-11-2024 ambulatory Sharmila R ELIANE Facility:[facility] Start: 11-11-2024 End: 11-11-2024 Patient encounter procedure Sharmila R ELIANE [facility] Start: 11-05-2024 End: 11-05-2024 Lab Drop off Sharmila R ELIANE [facility] Start: 11-05-2024 End: 11-05-2024 ambulatory JAMES ROMERO Facility:[facility] Jane [facility]ford Start: 11-04-2024 End: 11-04-2024 Bamboo flowsheet Sharmila Eliane DO Work Phone: [facility] Start: 11-04-2024 End: 11-04-2024 Bamboo flowsheet Sharmila Eliane DO Work Phone: [facility] Start: 11-04-2024 End: 11-04-2024 Office outpatient visit 15 minutes Sharmila Eliane DO Work Phone: [facility] Comment on above: Encounter for infert ility; PCOS (polycystic ovarian syndrome); Abnormal uterine bleeding (AUB); Hormone disorder Start: 11-04-2024 End: 11-04-2024 ambulatory SHARMILA DEL RIO Not Available Start: 07-25-2024 End: 07-25-2024 ambulatory JAMES M NICK Facility: [facility] Start: 07-02-2024 End: 07-02-2024 ambulatory JAMES Lund NICK Facility: [facility] Start: 07-02-2024 End: 07-02-2024 ambulatory ELIGIBILITY EXAMINER ASHISH Hollis LUCA Facility: [facility] Start: 05-01-2024 End: 05-01-2024 ambulatory ELIGIBILITY EXAMINER ASHISH Bunny LUCA Facility:[facility] [place] evue Start: 04-22-2024 End: 04-22-2024 ambulatory DIANE CASAREZ Not Available Start: 03-25-2024 End: 03-25-2024 ambulatory Brianna Ashton Facility:[facility] [place] Start: 01-12-2024 End: 01-12-2024 ambulatory JAMES Kevon NICK Facility:[facility] Start: 06-08-2022 End: 06-08-2022 ambulatory BOOM MCCARTHY Facility:[facility] Start: 06-08-2022 End: 06-08-2022 Patient encounter procedure Boom Mccarthy MD Work Phone: Ophthalmology Comment on above: Myopic astigmatism o f both eyes (Primary Dx); Refractive error Start: 10-12-2021 End: 10-12-2021 ambulatory JENNIE YARHAM Facility:[facility] Start: 10-11-2021 Orders Only Jennie Yarham OD Work Phone: Ophthalmology Start: 10-08-2017 Ambulatory Genet Josue Facility:[facility] Procedures Date Procedure Procedure Detail Performing Clinician Start: 04-22-2024 Microscopic observat ion [Identifier] in Cervix by Cyto stain Sharmila Del Rio DO Work Phone: Start: 04-22-2024 Cytp cerv/vag auto t hin layer prep mnl screen Diane NEW Work Phone: Cyst (disorder) Sharmila DEL RIO Insertion of intraut erine contraceptive device Sharmila DEL RIO Plan of Treatment Date Care Activity Detail Author Start: 04-22-2029 Screening for malign ant neoplasm of cervix [facility] Start: 04-28-2025 End: 04-28-2025 Patient encounter procedure 04/28/2025 11:00 AM EDT Office Visit [facility] [address] [phone] Diane Casarez PA [address] [place], [place] [id number] [facility] Start: 03-10-2025 End: 03-10-2025 Patient encounter procedure 03/10/2025 8:40 AM EDT Office Visit [facility] [address] [phone] Sharmila Del Rio DO [address] [place] [address] [facility] Start: 11-04-2024 End: 11-04-2025 Antimullerian hormone (AMH) Antimullerian hormone (AMH) Lab Routine PCOS (polycystic ovarian syndrome) Abnormal uterine bleeding (AUB) Expected: 11/04/2024 (Approximate), Expires: 11/04/2025 [facility] Comment on above: Expected: 11/04/2024 (Approximate), Expires: 11/04/2025 Start: 11-04-2024 End: 11-04-2025 DHEA DHEA Lab Routine PCOS (polycystic ovarian syndrome) Expected: 11/04/2024 (Approximate), Expires: 11/04/2025 [facility] Comment on above: Expected: 11/04/2024 (Approximate), Expires: 11/04/2025 Start: 11-04-2024 End: 11-04-2025 US Pelvis US Pelvis w/ TV Imaging Routine PCOS (polycystic ovarian syndrome) Expected: 11/04/2024, Expires: 11/04/2025 [facility] Comment on above: Expected: 11/04/2024 , Expires: 11/04/2025 Start: 11-04-2024 End: 11-04-2024 Patient encounter procedure 11/04/2024 8:40 AM EST Office Visit [facility] [address] [phone] Sharmila Del Rio DO [address] [place] [address] Arrived [facility] Comment on above: Arrived Start: 05-18-2024 Influenza vaccination Influenza Vacc ine (#1) [facility] Start: 05-18-2022 Influenza vaccination INFLUENZA (#1) [facility] Start: 05-18-2021 Influenza vaccination INFLUENZA (#1) [facility] Start: 01-10-2018 HPV TESTING HPV TESTING [facility] Start: 01-10-2009 PAP TESTING PAP TESTING [facility] Start: 01-10-2007 Urine microalbumin profile DTAP,TDAP,TD (1 - Tdap) [facility] Start: 01-10-2006 HIV SCREENING HIV SCREENING [facility] Start: 2000 Adult depression screening assessment DEPRESSION SCREENING [facility] Start: 01-10-1993 COVID-19 VACCINE (1) COVID-19 VACCIN E (1) [facility] Start: 1988 HEPATITIS B (1 of 3 - 3-dose series) HEPATITIS B (1 of 3 - 3-dose series) [facility] CBC W Auto Different ial panel - Blood CBC and differential Lab Routine PCOS (polycystic ovarian syndrome) Ordered: 11/04/2024 [facility] Comment on above: Ordered: 11/04/2024 DHEA-sulfate DHEA-sulfate Lab Routine PCOS (polycystic ovarian syndrome) Ordered: 11/04/2024 [facility] Comment on above: Ordered: 11/04/2024 Follicle stimulating hormone Follicle stimulating hormone Lab Routine PCOS (polycystic ovarian syndrome) Ordered: 11/04/2024 [facility] Comment on above: Ordered: 11/04/2024 hCG, quantitative, hCG, quantitative, Lab Routine PCOS (polycystic ovarian syndrome) Ordered: 11/04/2024 [facility] Work Phone: Comment on above: Ordered: 11/04/2024 Hemoglobin A1c/Hemoglobin.total in Blood Hemoglobin A1c Lab Routine Abnormal uterine bleeding (AUB) Ordered: 11/04/2024 [facility] Comment on above: Ordered: 11/04/2024 Luteinizing hormone Luteinizing hormone Lab Routine PCOS (polycystic ovarian syndrome) Ordered: 11/04/2024 [facility] Comment on above: Ordered: 11/04/2024 Progesterone Progesterone Lab Routine PCOS (polycystic ovarian syndrome) Hormone disorder Ordered: 11/04/2024 [facility] Comment on above: Ordered: 11/04/2024 Thyrotropin [Units/volume] in Serum or Plasma TSH Lab Routine PCOS (polycystic ovarian syndrome) Ordered: 11/04/2024 [facility] Comment on above: Ordered: 11/04/2024 Thyroxine (T4) free [Mass/volume] in Serum or Plasma T4, free Lab Routine PCOS (polycystic ovarian syndrome) Ordered: 11/04/2024 [facility] Comment on above: Or[facility]: [facility]04/20[facility] Immunization Date Immunization Notes Care Provider Vikas vaughn 06-18-2023 influenza, unspecifi ed formulation Sharmila ELIANE [facility] 06-18-2023 influenza virus vaccine, unspecified formulation Sharmila Espinozao Work Phone: [facility] Comment on above: Result Comment: 2023: VIS DATE: 04/22/2021 09-15-2022 SARS-CoV-2 (COVID-19 ) [id number] Sharmila ESPINOZAO [facility] 07-10-2022 influenza virus vaccine, unspecified formulation Sharmial ELIANE [facility] Comment on above: Result Comment: 2023: NULL 02-06-2022 tetanus toxoid, redu west diphtheria toxoid, and acellular pertussis vaccine, adsorbed Sharmila ELIANE [facility] Comment on above: Result Comment: 2023: VIS DATE: 04/22/2021 09-08-2021 influenza virus vaccine, unspecified formulation Sharmila ELIANE [facility] 09-08-2021 SARS-CoV-2 (COVID-19 ) mRNA-1273 vaccine Sharmila ELIANE [facility] 06-29-2021 influenza virus vaccine, unspecified formulation Sharmila ELIANE [facility] Comment on above: Result Comment: 2023: NULL 11-30-2020 SARS-CoV-2 (COVID-19 ) mRNA BNT-162b2 vax Sharmila ELIANE [facility] Comment on above: Result Comment: 2023: TPV23 11-09-2020 SARS-CoV-2 (COVID-19 ) mRNA BNT-162b2 vax Sharmila ELIANE [facility] Comment on above: Result Comment: 2023: TPV23 10-12-2020 SARS-CoV-2 (COVID-19 ) mRNA-1273 vaccine Sharmila ELIANE [facility] 09-14-2020 SARS-CoV-2 (COVID-19 ) mRNA-1273 vaccine Sharmila ELIANE [facility] 06-29-2020 influenza virus vaccine, unspecified formulation Sharmila ELIANE [facility] 09-19-2019 influenza virus vaccine, unspecified formulation Sharmila ELIANE [facility] 06-25-2018 influenza virus vaccine, unspecified formulation Sharmila ELIANE [facility] 06-03-2015 influenza virus vaccine, unspecified formulation Sharmila ELIANE [facility] 06-28-2013 influenza virus vaccine, unspecified formulation Sharmila ELIANE [facility] 05-11-2011 tetanus toxoid, redu west diphtheria toxoid, and acellular pertussis vaccine, adsorbed Sharmila ELIANE [facility] 01-30-2000 measles, mumps and rubella virus vaccine Sharmila ELIANE [facility] 02-15-1999 hepatitis B vaccine, pediatric or pediatric/adolescent dosage Sharmila ELIANE [facility] Payers Date Payer Category Payer Private Health Insurance [employer] [id number] 2021 Unknown MMO MMO [employer] [id number] 2021-Present [phone] [address] [place] [address] PPO [id number] 2021 Unknown [id number] 2021 Unknown [id number] 1988 Unknown [id number] [id number]. 1259 1988 Unknown [id number] 2.16.840.1.946496.3.579.2. 1259 1988 Unknown [id number] 2.16.840.1.636684.3.579.2. 727 1988 Unknown [id number] 2.16.840.1.420992.3.579.2. 1988 Unknown [id number] 2.16.840.1.468517.3.579.2. 727 1988 Unknown [id number] 2.16.840.1.041393.3.579.2. 1988 Unknown [id number] 2.16.840.1.557620.3.579.2. 1988 Unknown [id number] 2.16.840.1.728877.3.579.2. 1988 Unknown [id number] 2.16.840.1.323710.3.579.2. 1988 Unknown [id number] 2.16.840.1.926397.3.579.2. 1988 Unknown [id number] 2.16.840.1.142524.3.579.2. 1988 Unknown [id number] 2.16840.1.139480.3.579.2. 1988 Unknown [id number] 2.16.840.1.713018.3.579.2 1988 Unknown [id number] [id number] Unknown [id number] Social History Date Type Detail Facility Start: 09-02-2012 End: 07-25-2024 Tobacco smoking status NHIS Never smoked tobacco [facility] Start: 09-02-2012 End: 06-08-2022 Alcohol intake Current non-drinker of alcohol (finding) [facility] Start: 1990 Sex Assigned At Female [facility] Exposure to SARS-CoV -2 (event) Yes [facility] Start: 10-12-2021 Tobacco use and exposure Smokeless tobacco non-user [facility] Tobacco smoking stat us NHIS Tobacco smoking consumption unknown [facility] Start: 01-29-2024 Gender identity Identifies as female gender (finding) [facility] Start: 01-29-2024 Sexual orientation Heterosexual (finding) [facility] Tobacco smoking status Never [facility] [place] Sex Assigned At Female [facility] Sexual Orientation [facility] Start: 02-07-2019 Sex Female (finding) [facility] Clinical Notes 10-12-2021 to 12-22-2024 Arline Marcos LPN - 11/04/2024 8:40 AM Abiodun Mccarthy MD - 06/08/2022 8:11 AM EDTRadiology Note Date & Type Note Facility 12-22-2024 Evaluation + Plan note Diagnostic Tests PendingDHEA 12/22/24 [facility] 11-24-2024 Note Nurse Consultation N ote Reason for Visit patient came in for lab draw Assessment/Plan 1. PCOS (polycystic ovarian syndrome) (E28.2: Polycystic ovarian syndrome) 2. Fertility testing (Z31.41: Encounter for fertility testing) Medications ondansetron 4 mg Tab, 4 mg= 1 tab(s), Oral, q6hr, PRN phentermine 37.5 mg Tab, 37.5 mg= 1 tab(s), Oral, Daily Allergies No Known Allergies Immunizations Vaccine Date Status Comments influenza, unspecified formulation 06/18/2023 Given influenza virus vaccine, inactivated 06/18/2023 Recorded 2024-05-01: VIS DATE: 04/22/2021 SARS-CoV-2 (COVID-19) [id number] 09/15/2022 Recorded influenza virus vaccine, inactivated 07/10/2022 Recorded 2024-05-01: NULL diphtheria/pertussis, acel/tetanus adult 02/06/2022 Recorded 2024-05-01: VIS DATE: 04/22/2021 influenza virus vaccine, inactivated 09/08/2021 Recorded SARS-CoV-2 (COVID-19) mRNA-1273 vaccine 09/08/2021 Recorded influenza virus vaccine, inactivated 06/29/2021 Recorded 2024-05-01: NULL SARS-CoV-2 (COVID-19) mRNA BNT-162b2 vax 11/30/2020 Recorded 2024-05-01: TPV23 SARS-CoV-2 (COVID-19) mRNA BNT-162b2 vax 11/09/2020 Recorded 2024-05-01: TPV23 SARS-CoV-2 (COVID-19) mRNA-1273 vaccine 10/12/2020 Recorded SARS-CoV-2 (COVID-19) mRNA-1273 vaccine 09/14/2020 Recorded influenza virus vaccine, inactivated 06/29/2020 Recorded influenza virus vaccine, inactivated 09/19/2019 Recorded influenza virus vaccine, inactivated 06/25/2018 Recorded influenza virus vaccine, inactivated 06/03/2015 Recorded influenza virus vaccine, inactivated 06/28/2013 Recorded diphtheria/pertussis, acel/tetanus adult 05/11/2011 Recorded measles/mumps/rubella virus vaccine 01/30/2000 Recorded hepatitis B pediatric vaccine 02/15/1999 Recorded [facility] 11-24-2024 Evaluation + Plan note Diagnostic Tests PendingProgesterone Level 11/24/24 [facility] 11-04-2024 History of Present illness Narrative Reason for Appointment: Patient ID: Jason Coronel is a 34 y.o. female who presents for Infertility (Pt present today to discuss fertility) Patient presents today for Fertility Follow Up appointment. MEDICATIONS Current Outpatient Medications Medication Instructions ondansetron (ZOFRAN) 8 mg, Oral, As needed triamcinolone (Kenalog) 0.5 % cream Topical, As needed ALLERGIES No Known Allergies PROBLEMS Active Ambulatory Problems Diagnosis Date Noted No Active Ambulatory Problems Resolved Ambulatory Problems Diagnosis Date Noted No Resolved Ambulatory Problems Past Medical History: Diagnosis Date Eczema HISTORY PAST MEDICAL HISTORY SOCIAL HISTORY Past Medical History: Diagnosis Date Eczema Social History Tobacco Use Smoking status: Not on file Smokeless tobacco: Not on file Substance Use Topics Alcohol use: Not on file Drug use: Not on file FAMILY HISTORY No family history on file. SURGICAL HISTORY No past surgical history on file. REVIEW OF SYSTEMS Review of Systems: Review of Systems Constitutional: Negative. HENT: Negative. Eyes: Negative. Respiratory: Negative. Cardiovascular: Negative. Gastrointestinal: Negative. Genitourinary: Negative. Musculoskeletal: Negative. Skin: Negative. Neurological: Negative. All other systems reviewed and are negative. Hematological: Negative. Endocrine: Negative. Allergic/Immunologic: Negative. OBJECTIVE Objective: Physical Exam Constitutional: Appearance: Normal appearance. She is well-developed. Cardiovascular: Rate and Rhythm: Normal rate and regular rhythm. Pulmonary: Effort: Pulmonary effort is normal. Breath sounds: Normal breath sounds. Abdominal: General: Bowel sounds are normal. There is no distension. Palpations: Abdomen is soft. Tenderness: There is no abdominal tenderness. There is no guarding or rebound. Musculoskeletal: General: No swelling. Normal range of motion. Right lower leg: No edema. Left lower leg: No edema. Neurological: Mental Status: She is alert and oriented to person, place, and time. Skin: General: Skin is warm and dry. Psychiatric: Mood and Affect: Mood normal. Behavior: Behavior normal. Vitals and nursing note reviewed. Exam conducted with a sourcer present. Vitals: There is no height or weight on file to calculate BMI. BP: 122/78 Patient's last menstrual period was 10/04/2024. ASSESSMENT & PLAN ICD-10-CM 1. Encounter for infertility Z31.9 2. PCOS (polycystic ovarian syndrome) E28.2 hCG, quantitative, TSH T4, free CBC and differential Follicle stimulating hormone Luteinizing hormone DHEA-sulfate DHEA US Pelvis w/ TV Antimullerian hormone (AMH) DHEA Antimullerian hormone (AMH) 3. Abnormal uterine bleeding (AUB) N93.9 Hemoglobin A1c Antimullerian hormone (AMH) Antimullerian hormone (AMH) Patient presents today to discuss fertility. Patient was given a standing lab order and ultrasound to have obtained. Patient was instructed to call the office once menstrual cycle begins so femara can be called into patients pharmacy. Patient has been instructed to take Femara on days 3-7 of cycle. On day 21 of cycle patient is to have progesterone labs drawn. Patient was advised to have intercourse on days 12, 14, 16, 18, and 20 of cycle. We will do three rounds of Femara and if patient has not conceived by then, we will perform HSG. Patient has voiced understanding and will call our office for any further questions/concerns. Pt to start metformin and baby aspirin. Given semen analysis. Orders Placed This Encounter Procedures US Pelvis w/ TV hCG, quantitative, TSH T4, free CBC and differential Follicle stimulating hormone Luteinizing hormone Hemoglobin A1c DHEA-sulfate DHEA Antimullerian hormone (AMH) Follow Up: 4 months Documented by Arline Marcos LPN on behalf of: Sharmila Del Rio DO documented in this encounter [facility] 07-25-2024 Note Patient Education Genetic Medicine Diet for Metabolic Syndrome Metabolic syndrome is a disorder that includes three or more of the following conditions: ??? Abdominal obesity, as seen in a large waist measurement. ??? Too much sugar (glucose) in your blood. ??? High blood pressure (hypertension). ??? Xiwwok-wiff-hommrc amount of fat (lipids) in your blood. ??? Tqdkc-yjjf-uqivxs level of good cholesterol (HDL). Keeping an active lifestyle and following a healthy diet plan can help you manage your condition. These changes can also help to prevent the development of conditions that are associated with metabolic syndrome, such as diabetes, heart disease, and stroke. Following a heart-healthy diet can help you lower your risk of heart disease and improve metabolic syndrome. A heart-healthy diet includes lean proteins, healthy fats, nuts, and plenty of fruits and vegetables. Along with regular exercise, a healthy diet: ??? Helps to improve the way the body uses insulin. ??? Helps with weight loss. A common goal for people with this condition is to lose 7?10% or more of their starting weight. ? For example, a person who starts at 300 lb (136 kg) and loses 30 lb (13.6 kg) has lost 10% of his or her starting weight. What are tips for following this plan? Reading food labels Check food labels for the amount of salt (sodium) per serving. Choose foods with less than 5 percent of the Daily Value of sodium. Generally, foods with less than 300 milligrams (mg) of sodium per serving fit into this eating plan. Cooking ??? Do not metzger foods. Cook foods using healthy methods such as baking, boiling, steaming, grilling, roasting, and broiling. ??? Use more herbs and spices to add flavor to your food instead of using butter and salt (sodium). Meal planning ??? Consider following a plant-based diet, a Mediterranean diet, or a DASH diet. These diets include lots of vegetables, lean meats or fish, whole grains, fruits, healthy oils and fats, and low amounts of sodium. ??? Plan meals with healthy choices for food for daily life. Stock your kitchen with healthy food for meals. ??? Try to eat fish 1?2 times a week. ??? Choose a variety of fruits, vegetables, and other recommended foods. General information ??? Keep track of how many calories you eat and drink. Consuming the right amount of calories will help you achieve a healthy weight. ??? Make physical activity and healthy eating part of your lifestyle. ??? Consider working with a behavioral counselor to help you achieve your goal of a healthy lifestyle, including diet and exercise. What foods can I eat? Fruits Berries. Apples. Oranges. Peaches. Apricots. Plums. Grapes. Shell. Papaya. Pomegranate. Kiwi. Cherries. Vegetables Lettuce. Spinach. Leafy greens, including kale, chard, zoe greens, and mustard greens. Peas. Beets. Cauliflower. Cabbage. Broccoli. Carrots. Green beans. Tomatoes. Squash. Eggplant. Peppers. Onions. Cucumbers. [place] sprouts. Sweet potatoes. Yams. Beans. Lentils. Grains Stone-ground whole wheat. Pumpernickel bread. Whole-grain bread, crackers, tortillas, cereal, and pasta. Unsweetened oatmeal. Bulgur. Barley. Quinoa. Brown rice or wild rice. Meats and other proteins Seafood and shellfish. Lean meats. Poultry. Tofu. Nuts and seeds. Dairy Low-fat or fat-free dairy products, such as milk, yogurt, and cheese. Fats and oils Avocado. Canola or olive oil. Nuts and nut butters. Seeds. Tahini. Beverages Water. Low-fat milk. Milk alternatives, such as soy milk or almond milk. Seasonings and condiments Ketchup, barbecue sauce, and mayonnaise in moderation. Mustard. Relish. Herbs. The items listed above may not be a complete list of foods and beverages you can eat. Contact a dietitian for more information. What foods should I avoid? Fruits Canned fruits in light or heavy syrup. Vegetables Vegetables with added creams or sauces. Grains Highly processed grains, such as white bread, pasta, muffins, granola bars, pretzels, and crackers. Meats and other proteins Red meat. Precooked or cured meat, such as sausages or meat loaves. Dairy Full-fat milk. Yogurt with added sugars. Fats and oils Saturated fats, such as butter, shortening, and palm oil. Beverages Alcohol. Sweetened drinks, such as iced tea and soda. Other foods Fried foods. Sweets. Salty foods. The items listed above may not be a complete list of foods and beverages you should avoid. Contact a dietitian for more information. Summary ??? Metabolic syndrome is a combination of conditions such as abdominal obesity, high blood sugar, high blood pressure, and a higher amount of lipids in the blood. Metabolic syndrome raises your risk of developing heart disease, diabetes, and stroke. ??? Following a heart-healthy diet can help you lower your risk of heart disease and improve metabolic syndrome. This diet includes lean proteins, healthy fats, nuts, a (more content not included)... [facility] 06-08-2022 Note HNO ID: [id number] Author: Boom Mccarthy MD Service: ? Author Type: Physician Type: Progress Notes Filed: 06/08/2022 8:14 AM Note Text: Patient is a good candidate for LASIK. Flaps 120 ?m in both eyes. Full correction in both eyes. Discussed risks, benefits, alternatives, potential complications and personnel. I have repeated the technicians and resident/fellows examinations and agree with their findings. I have confirmed and edited as necessary the relevant ophthalmic history, ROS, and the neuro exam findings as obtained by others. I have seen and examined this patient. I have discussed the case and the management of this patient's care with the Resident/Fellow, if applicable. I also have reviewed and agree with the assessment and plan as stated above and agree with all of its relevant components. Boom Mccarthy MD June 08, 2022 8:13 AM [facility] 06-08-2022 History of Present illness Narrative Patient is a good candidate for LASIK. Flaps 120 m in both eyes. Full correction in both eyes. Discussed risks, benefits, alternatives, potential complications and personnel. I have repeated the technicians and resident/fellows examinations and agree with their findings. I have confirmed and edited as necessary the relevant ophthalmic history, ROS, and the neuro exam findings as obtained by others. I have seen and examined this patient. I have discussed the case and the management of this patient's care with the Resident/Fellow, if applicable. I also have reviewed and agree with the assessment and plan as stated above and agree with all of its relevant components. Boom Mccarthy MD June 08, 2022 8:13 AM documented in this encounter [facility] 10-12-2021 Note HNO ID: [id number] Author: Jennie Gamez OD Service: ? Author Type: CORPORATE DRIVER Type: Progress Notes Filed: 10/18/2021 1:30 PM Note Text: (H52.13) Myopia, bilateral (primary encounter diagnosis) Plan: - Spectacle prescription given to patient. - Discussed adaptation to new prescription. - Return for refraction in 1 year. (Z97.3) Wears contact lenses Comment: Discussed risks of sleeping in CLs Plan: - Proper contact lens hygiene protocol was reviewed. - Discussed risks of contact lens wear including GPC, corneal ulcer, and blindness. - No sleeping in contact lenses. - No water contact with lenses. - Phone call follow up x 1 week. - Consider laser in situ keratomileusis consult - Addendum: Happy with both trials. 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 Small, flat faint 1 DD nevus nasal to nerve left eye. - No suspicious lesions. Recommend obtaining records - Addendum: received records: small nasal choroidal nevus left eye. 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 I have seen and examined Jason White. I also have reviewed and agree with the assessment and plan as stated above and agree with all of its relevant components. Jennie Gamez OD [facility] Evaluation + Plan note Future Appointments Appointment Date:11/11/2024 12:00:00 PM Scheduled Provider: Location:.[facility] Appointment Type:US Abdominal/Pelvis (FT) Diagnostic Tests PendingLuteinizing Hormone 11/05/24FSH Level 11/05/24DHEA 11/05/24DHEAS 11/05/24Anti-Mullerian Hormone (AMH) 11/05/24 Future Scheduled TestsUS Pelvis Non-OB Complete 11/11/24US Transvaginal Non-OB 11/11/24 [facility] Evaluation note Diagnosis Myopic astigmatism of both eyes- Primary Refractive error Unspecified disorder of refraction and accommodation [facility] Encounter for infertility PCOS (polycystic ovarian syndrome) Polycystic ovaries Abnormal uterine bleeding (AUB) Hormone disorder Unspecified endocrine disorder [facility] N[facility]ative No data available for this section [facility] Hospital Discharge instructions No data available for this section [facility] Progress note No data available for this section [facility] Summary Purpose Family History No Family History Records FoundNo Family History Records FoundNo Family History Records FoundNo Family History Records FoundNo Family History Records FoundNo Family History Records FoundNo Family History Records Found No data available for this section No Family History Records FoundNo Family History Records FoundNo Family History Records FoundNo Family History Records FoundNo Family History Records FoundNo Family History Records FoundNo Family History Records FoundNo Family History Records FoundNo Family History Records FoundNo Family History Records FoundNo Family History Records FoundNo Family History Records Found No data available for this section No data available for this section No Family History Records Found No data available for this section No Family History Records FoundNo Family History Records Found Advance Directives No Advanced Directives Records FoundNo Advanced Directives Records FoundNo Advanced Directives Records FoundNo Advanced Directives Records FoundNo Advanced Directives Records FoundNo Advanced Directives Records FoundNo Advanced Directives Records FoundNo Advanced Directives Records FoundNo Advanced Directives Records FoundNo Advanced Directives Records FoundNo Advanced Directives Records FoundNo Advanced Directives Records FoundNo Advanced Directives Records FoundNo Advanced Directives Records FoundNo Advanced Directives Records FoundNo Advanced Directives Records FoundNo Advanced Directives Records FoundNo Advanced Directives Records FoundNo Advanced Directives Records FoundNo Advanced Directives Records FoundNo Advanced Directives Records FoundNo Advanced Directives Records Found Additional Source Comments INFORMATION SOURCE (unrecogn ized section and content) DATE CREATED AUTHOR 03/11/2018 [facility] DATE CREATED AUTHOR AUTHOR'S ORGANIZ ATION 09/03/2021 [facility] DATE CREATED AUTHOR AUTHOR'S ORGANIZ ATION 06/18/2022 [facility] DATE CREATED AUTHOR AUTHOR'S ORGANIZ ATION 08/17/2022 [facility] DATE CREATED AUTHOR AUTHOR'S ORGANIZ ATION 04/24/2024 [facility] EPIC DATE CREATED AUTHOR AUTHOR'S ORGANIZ ATION 11/05/2024 [facility] EPIC DATE CREATED AUTHOR AUTHOR'S ORGANIZ ATION 11/06/2024 [facility] DATE CREATED AUTHOR AUTHOR'S ORGANIZ ATION 11/07/2024 [facility] DATE CREATED AUTHOR AUTHOR'S ORGANIZ ATION 11/09/2024 Fried Mon[facility] DATE CREATED AUTHOR AUTHOR'S ORGANIZ ATION 11/12/2024 Fried Robi [facility] DATE CREATED AUTHOR AUTHOR'S ORGANIZ ATION 12/06/2024 Fried Robi [facility] DATE CREATED AUTHOR AUTHOR'S ORGANIZ ATION 12/24/2024 Fried Monona [facility] DATE CREATED AUTHOR AUTHOR'S ORGANIZ ATION 01/27/2025 [facility] Source Comments (unrecognize d section and content) In the event this informatio n is protected by the Federal Confidentiality of Alcohol and Drug Abuse Patient Records regulations: The Federal rules restrict any use of the information to criminally investigate or prosecute any alcohol or drug abuse patient.[facility] the event this information is protected by the Federal Confidentiality of Alcohol and Drug Abuse Patient Records regulations: The Federal rules restrict any use of the information to criminally investigate or prosecute any alcohol or drug abuse patient.[facility] Care Teams (unrecognized sec tion and content) Senior Customer Service Representative Relationship Specialty Start Date End Date CasandraLi silver Ene [id number] [facility] [address] [place] [phone] PCP - General 09/02/12 Senior Customer Service Representative Relationship Specialty Start Date End Date Li Guillen [id number] [facility] [address] [place] [address] PCP - General 09/02/12 Reason for Visit (unrecogniz ed section and content) Reason Comments Refractive evaluation BLURRED UCVA OU Reason Comments Infertility Pt present today to discuss fertility FOR RECORDS PERTAINING TO PATIENTS WHO ARE OR HAVE BEEN ENROLLED IN A CHEMICAL DEPENDENCY/SUBSTANCEABUSE PROGRAM, SOME INFORMATION MAY BE OMITTED. This clinical summary was aggregated from multiple sources. Caution should be exercised in using it in the provision of clinical care. This summary normalizes information from multiple sources, and as a consequence, information in this document may materially change the coding, format and clinical context of patient data. In addition, data may be omitted in some cases. CLINICAL DECISIONS SHOULD BE BASED ON THE PRIMARY CLINICAL RECORDS. [facility]. provides no warranty or guarantee of the accuracy or completeness of information in this document.
[2025-02-15 08:08] LABS: Progesterone 17.3 ng/mL (.)
== END 2025-02-14 09:09 | disposition home or self-care (01) ==
PROVIDERS: PCP Nurse Practitioner Family; Visit Provider Obstetrics & Gynecology
DX: E28.2 Polycystic ovarian syndrome (principal); E34.9 Endocrine disorder, unspecified; N93.9 Abnormal uterine and vaginal bleeding, unspecified
CPT/HCPCS: 36415; 84144

== ENCOUNTER 2025-02-25 07:17 | Outpatient (RCR) | payer OTHER, SELFPAY | END 2025-03-17 09:47 | disposition home or self-care (01) | LOC: LAB 07:17 | PROVIDERS: PCP Nurse Practitioner Family; Visit Provider Obstetrics & Gynecology | DX: Z51.81 Encounter for therapeutic drug level monitoring (principal); E28.2 Polycystic ovarian syndrome; Z32.01 Encounter for pregnancy test, result positive | CPT/HCPCS: 36415; 84702 ==

== ENCOUNTER 2025-05-05 13:24 | Outpatient (OUT) | payer OTHER, SELFPAY ==
--- OUTSIDE RECORDS SUMMARY | 2025-04-07 09:30 | XMS_ITS | Encounter Summary ---
Author Organization [facility] Address [address] [place] [address] Care Team Providers Care Tooth Cutter Spur Name Role Phone Unavailable Primary Care Provider Unavailabl e Encounter Details Date Type Department Care Team (Latest Contact Info) Description 04/07/2025 9:30 AM EDT Ancillary Procedure [facility]IN GRIFFITH[facility] [address] [place] [address] , unspecified gestational age ([facility]); Encounter for supervision of normal first in first trimester ([facility]) Social History Tobacco Use Types Packs/Day Years Used Date Smoking Tobacco: Never Assessed Estimated Date of Delivery Comme nts Yes 11/01/2025 Based on last me nstrual period of 01/25/2025 Sex and Gender Information Value Date Recorded Sex Assigned at Female 01/29/2024 3:29 PM EDT Legal Sex Female 3:49 PM EDT Gender Identity Female 01/29/2024 3:29 PM EDT Sexual Orientation Straight 01/29/2024 3: 29 PM EDT documented as of this encounter Plan of Treatment Upcoming Encounters Date Type Department Care Team (Late st Contact Info) Description 04/21/2025 9:30 AM EDT Routine ERVIN GRIFFITHS [address] [place] [phone] Pee Del Rio DO [address] [place], [place] [phone] 04/28/2025 11:00 AM EDT Office Visit [facility] [address] [address] Diane Gardner PA [address] [place] [address] documented as of this encounter Procedures Procedure Name Priority Date/Time Associated Diagnosis Comments US OB TRANSVAGINAL Routine 04/07/2025 9: 55 AM EDT , unspecified gestational age ([facility]) Encounter for supervision of normal first in first trimester ([facility]) documented in this encounter Results * US OB transvaginal (04/07/2025 9:55 AM EDT) Anatomical Region Laterality Modality Body Ultrasound 04/08/2025 10:1 8 AM EDT Narrative 04/08/2025 10:18 AM EDT EXAM: US OB TRANSVAGINAL HISTORY: Viability. COMPARISON: Ob ultrasound 03/27/2025 - Images only. TECHNIQUE: Two-dimensional transvaginal grayscale ultrasound imaging of the pelvis was performed. Color Doppler evaluation of the ovaries was also performed. FINDINGS: The uterus demonstrates a normal homogeneous echotexture. The cervix measures 3.9 cm in length and the cervical os is closed. The right ovary measures 3.9 x 2.6 x 2.7 cm and demonstrates a normal echotexture. There is normal color Doppler flow. There is a presumed corpus luteal cyst visualized. The left ovary is not visualized due to overlying bowel gas. No fluid is present within the cul-de-sac. There is a single, live intrauterine gestation identified with a heart rate of 173 beats per minute and a crown-rump length measurement of 3.4 cm, correlating to a gestational age of 10 weeks 2 days (+/- 6 days). A yolk sac is visualized. There is a 1.7 cm cystic structure adjacent to the gestational sac with a possible amnion visualized. No pole or yolk sac identified within this structure. IMPRESSION: 1. Single, live intrauterine gestation 10 weeks, 2 days by LMP. Today's ultrasound measurements correlate with a gestational age of 10 weeks 2 days (+/- 6 days). MEHUL by today's ultrasound is 11/01/2025. 2. Cystic structure adjacent to the gestational sac. This structure contains possible amnion and may represent a vanishing twin gestation. This structure has decreased in size when compared to the prior study. 3. Normal color Doppler evaluation of the right ovary, the left ovary was not visualized.. Interpreted by: Electronically signed by WANDA VARGAS II, MD, PHD at 08-Apr-2025 10:16:34 AM [facility] Procedure Note Wanda Vargas MD - 04/08/2025 EXAM: US OB TRANSVAGINAL HISTORY: Viability. COMPARISON: Ob ultrasound 03/27/2025 - Images only. TECHNIQUE: Two-dimensional transvaginal grayscale ultrasound imaging ofthe pelvis was performed. Color Doppler evaluation of the ovaries was alsoperformed. FINDINGS: The uterus demonstrates a normal homogeneous echotexture. The cervixmeasures 3.9 cm in length and the cervical os is closed. The right ovary measures 3.9 x 2.6 x 2.7 cm and demonstrates a normalechotexture. There is normal color Doppler flow. There is a presumedcorpus luteal cyst visualized. The left ovary is not visualized due to overlying bowel gas. No fluid is present within the cul-de-sac. There is a single, live intrauterine gestation identified with a fetalheart rate of 173 beats per minute and a crown-rump length measurement of3.4 cm, correlating to a gestational age of 10 weeks 2 days (+/- 6 days).A yolk sac is visualized. There is a 1.7 cm cystic structure adjacent to the gestational sac with apossible amnion visualized. No pole or yolk sac identified withinthis structure. IMPRESSION: 1. Single, live intrauterine gestation 10 weeks, 2 days by LMP. Today'sultrasound measurements correlate with a gestational age of 10 weeks 2days (+/- 6 days). MEHUL by today's ultrasound is 11/01/2025. 2. Cystic structure adjacent to the gestational sac. This structurecontains possible amnion and may represent a vanishing twin gestation.This structure has decreased in size when compared to the prior study. 3. Normal color Doppler evaluation of the right ovary, the left ovary wasnot visualized.. Interpreted by: Electronically signed by WANDA VARGAS II, MD, PHD 10:16:34 AM [facility] us Pee Del Rio DO IMG OB US PROCEDURES Final Resul t documented in this encounter Visit Diagnoses Diagnosis , unspecified gestational age ([facility]) Encounter for supervision of normal first in first trimester ([facility]) documented in this encounter
--- OUTSIDE RECORDS SUMMARY | 2025-04-13 10:33 | XMS_ITS | Clinical Summary ---
Author Organization [facility] Address [address] [place] [address] Care Team Providers Care Client Operations Manager Name Role Phone Unavailable Primary Care Provider Unavailabl e Allergies No known active allergies Medications ondansetron (Zofran) 4 MG tabletIndicati ons:Nausea Take 2 tablets (8 mg) by mouth if needed for nausea or vomiting 20 tablet 2 03/27/20 25 Active ondansetron (Zofran) 4 MG tablet Take 8 mg by mouth if needed for nausea or vomiting 025 Discontinued(Re order) triamcinolone (Kenalog) 0.5 % cream Apply topically if needed 025 Discontinued metFORMIN XR (Glucophage-XR ) 500 MG 24 hr tabletIndicati ons:PCOS (polycystic ovarian syndrome),Abno rmal uterine bleeding (AUB) Take 1 tablet (500 mg) by mouth in the evening. Take with meals Do not crush, chew, or split. 30 tablet 11 11/04/19 25 025 Discontinued Active Problems Problem Noted Date Diagnosed Date PCOS (polycystic ovarian syndrome) 02/24/2025 Positive urine test ([facility]) 02/25/20 25 Estimated Date of Delivery Comme nts Yes 11/01/2025 Based on last me nstrual period of 01/25/2025 Encounters Date Type Department Care Team Description 04/07/2025 9:30 AM EDT Ancillary Procedure [facility] [address] [place] [address] [place] [phone] , unspecified gestational age ([facility]); Encounter for supervision of normal first in first trimester ([facility]) 04/06/2025 Telephone [facility] [address] [place] [address] Luis Sheri, MA 04/01/2025 Travel 03/27/2025 10:00 AM [place] [address] GA: 8w5d 03/27/2025 9:30 AM EDT Ancillary Procedure [facility] [address] [place] [address] Missed menses 03/20/2025 Travel 03/03/2025 Travel 02/27/2025 Clinisync Result Encounter [facility]OMS External Department Unsolicited Pee Del Rio, DO 02/25/2025 Clinisync Result Encounter NOMS External Department Unsolicited Pee Del Rio, DO 02/24/2025 Telephone [facility] [address] [place] [address] [phone] Emi Ventura LPN 02/14/2025 Clinisync Result Encounter NOMS External Department Unsolicited Pee Del Rio, DO 01/27/2025 Telephone [facility] [address] [place] [address] Emi Ventura LPN 01/21/2025 Telephone [facility] [address] [place] [address] Emi Ventura LPN from Last 3 Months Family History Medical History Relation Name Comments high blood pressure Mother Relation Name Status Comments Mother Social History Tobacco Use Types Packs/Day Years Used Date Smoking Tobacco: Never Assessed Estimated Date of Delivery Comme nts Yes 11/01/2025 Based on last me nstrual period of 01/25/2025 Sex and Gender Information Value Date Recorded Sex Assigned at Female 01/29/2024 3:29 PM EDT Legal Sex Female 3:49 PM EDT Gender Identity Female 01/29/2024 3:29 PM EDT Sexual Orientation Straight 01/29/2024 3 :29 PM EDT Last Filed Vital Signs Vital Sign Reading Time Taken Comments Blood Pressure 130/82 03/27/2025 10:39 AM EDT Pulse - - Temperature - - Respiratory Rate - - Oxygen Saturation - - Inhaled Oxygen Concentration - - Weight 100 kg (220 lb 6.4 oz) 03/27/2025 10:39 A M EDT Height - - Body Mass Index - - Plan of Treatment Upcoming Encounters Date Type Department Care Team (Late st Contact Info) Description 04/21/2025 9:30 AM EDT Routine [facility] GRIFFITHS [address] [place] [phone] Pee Del Rio DO [address] [facility] [facility] [address] [place], [place] [phone] 04/28/2025 11:00 AM EDT Office Visit [facility] [address] [facility] [place] [phone] Diane Gardner PA [address] [facility] [address] [place], [place] [id number] Health Maintenance Due Date Last Done Comments Influenza Vaccine (#1) 2025 , 07/10/2022, 09/08/2021, Additional history exists Cervical Cancer Screening 04/22/2029 HPV/Cotest 04/22/2029 Pap Smear 04/22/2029 04/22/2024 Procedures Procedure Name Priority Date/Time Associated Diagnosis Comments OB TRANSVAGINAL Routine 04/07/2025 9: 55 AM EDT , unspecified gestational age ([facility]) Encounter for supervision of normal first in first trimester ([facility]) POCT URINALYSIS DIPSTICK Routine 03/27/2025 10:07 AM EDT Missed menses POCT , URINE Routine 03/27/2025 10:07 AM EDT Missed menses US OB TRANSVAGINAL Routine 03/27/2025 9: 59 AM EDT Missed menses [facility] PREG QUANT HCG Routine 02/27/2025 7: 21 AM EDT [facility] PREG QUANT HCG Routine 02/25/2025 7: 36 AM EDT ALL PROGESTERONE Routine 02/14/2025 9:24 AM EDT PAP SMEAR Routine 04/22/2024 12:00 AM EDT from Last 3 Months or Most Recently Relevant to Health Maintenance Results * US OB transvaginal (04/07/2025 9:55 AM EDT) Only the most recent of2 resultswithin the time period is included. Anatomical Region Laterality Modality Body Ultrasound 04/08/2025 [...] II, MD, PHD at 08-Apr-2025 10:16:34 AM [facility] Procedure Note Wanda Vargas MD - [...] WANDA VARGAS II, MD, PHD 10:16:34 AM [facility] us Pee Eliane DO IMG OB US PROCEDURES Final Resul t * (ABNORMAL) POCT , urine manually resulted (03/27/2025 10:07 AM EDT) Preg Test, Ur Positive Negative Urine 03/27/2025 10:0 7 AM EDT Pee Eliane DO POINT OF CARE TEST ENTER/EDIT OR DERABLES Final Result * POCT urinalysis dipstick manually resulted (03/27/2025 10:07 AM EDT) Color, UA Yellow Clarity, UA Clear Glucose, UA Negative Negative - 2000(110) ++++ mg/dL Bilirubin, UA Negative Negative - 4(70) +++ mg/dL Ketones, UA Negative Negative - 160(16) ++++ mg/dL Spec Grav, UA 1.025 1 - 1.03 Blood, UA Negative Negative - 50 Jerry/mcL pH, UA 6.0 5 - 9 Protein, UA Negative Negative - 2000(20) ++++ mg/dL Urobilinogen, UA 0.2 0.2 - 12 mg/dL Leukocytes, UA Negative Negative - 500+++ Roberta/mcL Nitrite, UA Negative Negative - Positive Urine 03/27/2025 10:0 7 AM EDT Pee Eliane DO POINT OF CARE TEST ENTER/EDIT OR DERABLES Final Result * [facility]H PREG QUANT HCG (02/27/2025 7:21 AM EDT) Only the most recent of2 resultswithin the time period is included. HCG QUANTITATIVE 780 mIU/mL TB Comment: 5-50 0.2-1 WEEK 50-500 1-2 WEEKS 100-5,000 2-3 WEEKS 500-10,000 3-4 WEEKS 1,000-50,000 4-5 WEEKS 10,000-100,000 5-6 WEEKS 15,000-200,000 6-8 WEEKS 10,000-100,000 2-3 MONTHS 02/27/2025 7:21 AM EDT 02/27/2025 7:22 AM EDT Narrative CLINISYNC - 02/27/2025 7:57 AM EDT us Pee Eliane DO CLINISYNC Final Result CLINISYAL TB * ALL PROGESTERONE (02/14/2025 9:24 AM EDT) Pathologist [facility] PROGESTERONE 17.3 . ng/mL [facility] Comment: Follicular phase 0.1 - 0.9 Luteal phase 1.8 - 23.9 Ovulation phase 0.1 - 12.0 First trimester 11.0 - 44.3 Second trimester 25.4 - 83.3 Third trimester 58.7 - 214.0 Postmenopausal 0.0 - 0.1 Performed at: [address] [id number] Mattress Specialist: Evan Valenzuela PhD, Phone: [phone] 02/14/2025 9:24 AM EDT 02/14/2025 9:28 AM EDT Narrative CLINISYNC - 02/15/2025 8:08 AM EDT us Pee Eliane DO CLINISYNC Final Result CLINISYAL TB * Pap Smear (04/22/2024 12:00 AM EDT) Swab Cervical swab / Unknown Diane NEW LAB CYTOLOGY ORDERABLES Final Re sult EXTERNAL LAB from Last 3 Months or Most Recently Relevant to Health Maintenance Insurance [employer]
--- OUTSIDE RECORDS SUMMARY | 2025-04-13 10:33 | XMS_ITS | Encounter Summary ---
Author Organization [facility] Address [address] [place] [address] Care Team Providers Care Hyperbaric Nurse Name Role Phone Unavailable Primary Care Provider Unavailabl e Encounter Details Date Type Department Care Team (Late st Contact Info) Description 12/03/2024 Abstract [facility] [address] [facility] [place] [address] Emi Ventura LPN Social History Tobacco Use Types Packs/Day Years Used Date Smoking Tobacco: Never Assessed Comments No Sex and Gender Information Value Date Recorded [...] EDT Routine ERVIN GRIFFITHS [address] [place] [address] Pee Del Rio DO [address], [place] [phone] 04/28/2025 11:00 AM EDT Office Visit ERVIN GRIFFITHS [address] [place] [address] Diane Gardner PA [address] [place] [address] Dr [place], [facility]11 documented as of this encounter Visit Diagnoses Not on filedocumented in this encounter
--- OUTSIDE RECORDS SUMMARY | 2025-04-13 10:33 | XMS_ITS | Encounter Summary ---
Author Organization [facility] Address [address] [place] [address] Care Team Providers Care Farm Equipment Operator Name Role Phone Unavailable Primary Care Provider Unavailabl e Encounter Details Date Type Department Care Team (Late st Contact Info) Description 11/07/2024 Abstract [facility] [address] [place] [phone] Pee Del Rio DO [facility] [place] [address] Social History Tobacco Use Types Packs/Day Years [...] EDT Routine ERVIN GRIFFITHS [address] [place] [phone] Pee Del Rio DO [address] [place] [address] 04/28/2025 11:00 AM EDT Office Visit ERVIN GRIFFITHS [address] [facility] [place] [phone] Diane Gardner PA [address] [facility] [place] [address] documented as of this encounter Visit Diagnoses Not on filedocumented in this encounter
--- OUTSIDE RECORDS SUMMARY | 2025-04-13 10:33 | XMS_ITS | Encounter Summary ---
Author Organization [facility] Address [address] [place] [address] Care Team Providers Care Endodontics Dentist Name Role Phone Unavailable Primary Care Provider Unavailabl e Encounter Details Date Type Department Care Team (Late st Contact Info) Description 12/17/2024 Abstract [facility] [address] [facility] [place] [address] Emi Ventura LPN Social History Tobacco [...] EDT Routine ER[facility]IN GRIFF[facility] [address] [place] [address] Pee Del Rio DO [address], [place] [phone] 04/28/2025 11:00 AM EDT Office Visit ER[facility]IN G[facility]FF[facility] [address] [place] [address] Diane Gardner PA [address] [place] [address] Dr [place], [facility]11 documented as of this encounter Visit Diagnoses Not on filedocumented in this encounter
--- OUTSIDE RECORDS SUMMARY | 2025-04-13 10:33 | XMS_ITS | Encounter Summary ---
Author Organization [facility] Address [address] [place] [address] Care Team Providers Care Commercial Lines Manager Name Role Phone Unavailable Primary Care Provider Unavailabl e Encounter Details Date Type Department Care Team (Late st Contact Info) Description 11/06/2024 Abstract [facility] [address] [place] [phone] Pee Del Rio [place] [facility] [place] [address] Social History Tobacco Use Types Packs/Day Years [...] EDT Routine ERVIN GRIFFITHS [address] [place] [phone] Pee Del Rio DO [address] [place] [address] 04/28/2025 11:00 AM EDT Office Visit ERVIN GRIFFITHS [address] [facility] [place] [phone] Diane Gardner PA [address] [facility] [place] [address] documented as of this encounter Visit Diagnoses Not on filedocumented in this encounter
--- OUTSIDE RECORDS SUMMARY | 2025-04-13 10:33 | XMS_ITS | Encounter Summary ---
Author Organization [facility] Address [address] [place] [address] Care Team Providers Care Disbursing Officer Name Role Phone Unavailable Primary Care Provider Unavailabl e Encounter Details Date Type Department Care Team (Late st Contact Info) Description 11/11/2024 Abstract [facility] [address] [place] [phone] Pee Del Rio DO [facility] [place] [address] Social History Tobacco Use Types Packs/Day Years [...] EDT Routine [facility] [address] [place] [phone] Pee Del Rio DO [address] [place] [address] 04/28/2025 11:00 AM EDT Office Visit [facility] [address] [facility] [place] [phone] Diane Gardner PA [address] [facility] [place] [address] documented as of this encounter Visit Diagnoses Not on filedocumented in this encounter
--- OUTSIDE RECORDS SUMMARY | 2025-04-13 10:33 | XMS_ITS | Encounter Summary ---
Author Organization [facility] Address [address] [place] [address] Care Team Providers Care Mixer Operator Raw Salt Name Role Phone Unavailable Primary Care Provider Unavailabl e Reason for Visit * Reason Onset Date Comments Med Refill 12/02/2024 Encounter Details Date Type Department Care Team (Late st Contact Info) Description 12/02/2024 Telephone [facility] [address] [place] [address] Pee Del Rio DO [address] [place] [address] Med Refill Social History Tobacco Use Types Packs/Day Years Used Date Smoking Tobacco: Never Assessed Comments No Sex and Gender Information Value Date Recorded Sex Assigned at Female 01/29/2024 3:29 PM EDT Legal Sex Female 3:49 PM EDT Gender Identity Female 01/29/2024 3:29 PM EDT Sexual Orientation Straight 01/29/2024 3: 29 PM EDT documented as of this encounter Miscellaneous Notes * Telephone Encounter - Emi Ventura LPN - 12/03/2024 9:32 AM EDT Patient to have Day 21 Progesterone drawn on 12/22/24--Reach out to Margarita to obtain results after. ss documented in this encounter Plan of Treatment Upcoming Encounters Date Type Department Care Team (Late st Contact Info) Description 04/21/2025 9:30 AM EDT Routine [facility] [address] [place] [address] [place] [phone] Pee Del Rio DO [address] [facility] [address] [place], [place] [id number] 04/28/2025 11:00 AM EDT Office Visit [facility] [address] [place] [address] [place] [phone] Diane Gardner PA [address] [facility] [address] [place], [place] [id number] documented as of this encounter Visit Diagnoses Not on filedocumented in this encounter
--- OUTSIDE RECORDS SUMMARY | 2025-04-13 10:33 | XMS_ITS | Encounter Summary ---
Author Organization [facility] Address [address] [place] [address] Care Team Providers Care Funeral Pre Arrangement Counselor Name Role Phone Unavailable Primary Care Provider Unavailabl e Encounter Details Date Type Department Care Team (Late st Contact Info) Description 04/06/2025 Telephone [facility] [address] [place] [address] Sheri Smith MA [address] [place] [address] Social History Tobacco Use Types Packs/Day Years [...] encounter Miscellaneous Notes * Telephone Encounter - Sheri Smith MA - 04/06/2025 1:47 PM EDT Cancelled duplicate US order documented in this encounter Plan of Treatment Upcoming Encounters Date Type Department Care Team (Late st Contact Info) Description 04/21/2025 9:30 AM EDT Routine [facility] [address] [facility] [address] Pee Del Rio DO [address] [facility] [address] [place], [place] [phone] 04/28/2025 11:00 AM EDT Office Visit [facility] [address] [facility] [address] Diane Gardner PA [address] [facility] [place] [address] documented as of this encounter Visit Diagnoses Diagnosis Missed menses Positive urine test ([facility]) Encounter to determine viability of , single or unspecified fetus ([facility]) documented in this encounter
--- OUTSIDE RECORDS SUMMARY | 2025-04-13 10:33 | XMS_ITS | Encounter Summary ---
Author Organization [facility] Address [address] [place] [address] Care Team Providers Care Cocoa Mill Operator Name Role Phone Unavailable Primary Care Provider Unavailabl e Encounter Details Date Type Department Care Team (Latest Contact Info) Description 04/01/2025 Travel Social History Tobacco Use Types Packs/Day Years [...] 04/21/2025 9:30 AM EDT Routine [facility] [address] [place] [address] [place] [address] Pee Del Rio DO [address] [place] [address] [address] [place], [id number] 04/28/2025 11:00 AM EDT Office Visit [facility] [address] [place] [address] Diane Gardner PA [address] [facility] [address] [place], [email or web address] documented as of this encounter Visit Diagnoses Not on filedocumented in this encounter
--- OUTSIDE RECORDS SUMMARY | 2025-04-13 10:33 | XMS_ITS | Encounter Summary ---
Author Organization [facility] Address [address] [place] [address] Care Team Providers Care Deep Sea Diver Name Role Phone Unavailable Primary Care Provider Unavailabl e Encounter Details Date Type Department Care Team (Late st Contact Info) Description 11/07/2024 Abstract [facility] [address] [place] [phone] Pee Del Rio DO [facility] [place] [address] Social History Tobacco Use Types Packs/Day Years [...] Routine [facility] [address] [place] [phone] Pee Del Rio DO [address] [place] [address] 04/28/2025 11:00 AM EDT Office Visit [facility]VIN GRIFF[facility] [address] [facility] [place] [phone] Diane Gardner PA [address] [facility] [place] [address] documented as of this encounter Visit Diagnoses Not on filedocumented in this encounter
--- OUTSIDE RECORDS SUMMARY | 2025-04-13 10:33 | XMS_ITS | Encounter Summary ---
Author Organization [facility] Address [address] [place] [address] Care Team Providers Care Dope Worker Name Role Phone Unavailable Primary Care Provider Unavailabl e Encounter Details Date Type Department Care Team (Late st Contact Info) Description 11/12/2024 Abstract [facility] [address] [place] [phone] Pee Del Rio DO [facility] [place] [address] Social History Tobacco Use Types Packs/Day Years [...] EDT Routine [facility] [address] [place] [phone] Pee Del Rio DO [address] [place] [address] 04/28/2025 11:00 AM EDT Office Visit [facility] [address] [facility] [place] [phone] Diane Gardner PA [address] [facility] [place] [address] documented as of this encounter Visit Diagnoses Not on filedocumented in this encounter
--- OUTSIDE RECORDS SUMMARY | 2025-04-13 10:45 | XMS_ITS | CCD ---
Author Organization [facility] Care Team Providers Care Outside Operator Name Role Phone Giovany Josue Unavailable Unavail able Li Guillen Primary Care Provider Li Guillen Primary Care Provider ANGELIA MCCARTHY Attending Unavailable JENNIE GAMEZ Referring Unavailable LI GUILLEN F Primary Care Unavailable JENNIE GAMEZ Attending Unavailable LI GUILLEN F Primary Care Unavailable DIANE CASAREZ Attending Unavailable Unavailable Primary Care Provider UnavailJAMES Cavanaugh Primary Care Unavailable JAMES ROMERO Primary Care Unavailable ELIANE, Pee R Admitting Unavailable ELIANE, Pee R Attending Unavailable JAMES ROMERO Attending Unavailable JAMES ROMERO Admitting Unavailable JAMES ROMERO Primary Care Unavailable JAMES ROMERO Primary Care Unavailable JAMES ROMERO Attending Unavailable Brianna Ashton Attending Unavailable JAMES ROMERO Primary Care Unavailable SANDRITA SEGOVIA Attending UnavailJAMES Cavanaugh Primary Care Unavailable SANDRITA SEGOVIA Attending UnavailJAMES Cavanaugh Primary Care Unavailable JAMES ROMERO Primary Care Unavailable SANDRITA SEGOVIA Attending UnavailASHISH Ramirez Primary Care Physician ELIANE, Pee R Attending Unavailable ELIANE, Pee R Admitting Unavailable ELIANE, Pee R Attending Unavailable ELIANE, Pee R Referring Unavailable ELIANE, Pee R Admitting Unavailable Daisha, Brianna L Admitting Unavailable Daisha, Brianna L Attending Unavailable Daisha, Brianna L Attending Unavailable ELIANE, Pee R Attending Unavailable ELIANE, Pee R Admitting Unavailable ELIANE, Pee R Attending Unavailable Pee DEL RIO R Admitting Unavailable PEE DEL RIO Attending Unavailable PEE DEL RIO Referring Unavailable Medications Current Medications Medication Drug Class(es) [...] hydrochloride 500 mg extended release oral tablet (6 sources) Biguanide Start: 11-04-2024 End: 11-04-2025 take 1 tablet by mouth every twenty-four hours at mealtime metFORMIN XR (Glucophage-XR) 500 MG 24 hr tablet Indications: PCOS (polycystic ovarian syndrome) , Abnormal uterine bleeding (AUB) Take 1 tablet (500 mg) by mouth in the evening. Take with meals Do not crush, chew, or split. 30 tablet 11 11/04/2024 03/27/2025 Discontinued ondansetron 4 mg oral tablet (14 sources) Serotonin-3 Receptor Antagonist Start: 03-27-2025 ondansetron (Zofran) 4 MG tablet Indications: Nausea Take 2 tablets (8 mg) by mouth if needed for nausea or vomiting 20 tablet 2 03/27/2025 Active Start: 10-20-2024 take 1 tablet by irene th every six hours as needed for nausea [...] for Nausea/Vomiting. 8 tablet 0 09/02/2012 Active End: 03-27-2025 ondansetron (Zofran) 4 MG ta blet Take 8 mg by mouth if needed for nausea or vomiting 03/27/2025 Discontinued (Reorder) Comment on above: Take 1 tablet by [...] 250 mg by mouth once daily. levonorgestrel 0.797508 mg/hr intrauterine system (1 source) Progestin, Progestin-containing [...] on above: Take 1 tablet by irene twice daily. triamcinolone acetonide 0.001 mg/mg topical ointment (8 sources) Corticosteroid Start: 03-30-2021 triamcinolone acetonide (KENALOG) 0.1 % ointment End: 03-27-2025 triamcinolone (Kenalog) 0.5 % cream Apply topically if needed 03/27/2025 Discontinued Problems Active Problems Problem Classification Problem Date Documented Da te Episodic/Chronic Blindness and vision defects (2 sources) Disorder of refraction; Translations: [Unspecified disorder of refraction] Episodic Contraceptive and procreative management (2 sources) Patient encounter status; Translations: [Encounter for procreative management, unspecified] 11-04-2024 Episodic Menstrual disorders (1 source) Missed period; Translations: [Irregular menstruation, unspecified] 03-27-2025 Chronic Nausea and vomiting (1 source) Nausea; Translations: [Nausea] 03-27-2025 Episodic Other endocrine disorders (5 sources) Polycystic ovary syndrome; Translations: [Polycystic ovarian syndrome] Onset: 02-24-2025 11-04-2024 Chronic Other endocrine disorders (2 sources) [...] disorders (4 sources) Weight gain 05-19-2020 Episodic Other and delivery including normal (5 sources) Urine test positive; Translations: [Encounter for test, result positive] Onset: 02-24-2025 02-24-2025 Episodic Unclassified (2 sources) Contusion of lower [...] Test Name Value Interpretation Reference Range Facility US OB TRANSVAGINALon 025 US OB TRANSVAGINAL EXAM: US OB TRANSVAGINAL HISTORY: Viability. COMPARISON: [...] II, MD, PHD at 08-Apr-2025 10:16:34 AM [facility] Normal Not Available Comment on above: Order Comment: US OB VIABILITY PLEASE PERFORM TRANSVAGINAL ULTRASOUND IF INDICATED Patient's last menstrual period was 01/25/2025. HCG ( test) Ql (U)o n 03-27-2025 Interpretation and review of laboratory results Abnormal [facility] Preg Test, Ur Positive Negative [facility] US OB TRANSVAGINALon 025 US OB TRANSVAGINAL FINDINGS: A single intrauterine gestational sac is present. No subchorionic hemorrhage. A single pole is present. Normal heart rate at 178 beats per minute. Yolk sac also is seen. Current sonographic age is 8 weeks and 3 days based on the crown-rump length measurement of 1.9 cm (8 weeks and 3 days) and gestational sac measurement of 2.4 cm (7 weeks and 0 days). Based on this age, current estimated date of delivery is November 03, 2025. No pelvic fluid or adnexal mass present. Cervix is closed. A second intrauterine gestational sac is present measuring 7 x 15 x 15 mm with a several millimeter echogenic 2 x 2 mm focus, nonshadowing, atypical for a normal appearing yolk sac and may represent a second nonviable gestation. IMPRESSION: Single viable intrauterine with secondary endometrial findings described above. This study can serve as a baseline for follow-up examinations, current crown-rump length 1.9 cm, consist with with an 8 weeks and 3 days gestational age. TRANSCRIBED BY: ELECTRONICALLY SIGNED BY: Jose M Schmidt MD Normal Not Available Comment on above: Order Comment: US OB TRANSVAGINAL No LMP recorded. Urinalysis macro (dipstick) panel (U)on 03-27-2025 Bilirubin, UA Negative Negative - 4(70) +++ mg/dL [facility] Blood, UA Negative Negative - 50 Jerry/mcL [facility] Clarity, UA Clear [facility] Color, UA Yellow [facility] Glucose, UA Negative Negative - 2000(110) ++++ mg/dL [facility] Interpretation and review of laboratory results Normal [facility] Ketones, UA Negative Negative - 160(16) ++++ mg/dL [facility] Leukocytes, UA Negative Negative - 500+++ Roberta/mcL [facility] Nitrite, UA Negative Negative - Positive [facility] pH, UA 6 5 - 9 [facility] Protein, UA Negative Negative - 1999(20) ++++ mg/dL [facility] Spec Grav, UA 1.025 1 - 1.03 [facility] Urobilinogen, UA 0.2 0.2 - 12 mg/dL [facility] PREG QUANT HCGon 025 HCG QUANTITATIVE 780 mIU/mL [facility] Comment on above: 5-50 0.2-1 WEEK 50-500 1-2 WEEKS 100-5,000 2-3 WEEKS 500-10,000 3-4 WEEKS 1,000-50,000 4-5 WEEKS 10,000-100,000 5-6 WEEKS 15,000-200,000 6-8 WEEKS 10,000-100,000 2-3 MONTHS [facility] PREG QUANT HCGon 025 HCG QUANTITATIVE 308 mIU/mL [facility] Comment on above: 5-50 0.2-1 WEEK 50-500 1-2 WEEKS 100-5,000 2-3 WEEKS 500-10,000 3-4 WEEKS 1,000-50,000 4-5 WEEKS 10,000-100,000 5-6 WEEKS 15,000-200,000 6-8 WEEKS 10,000-100,000 2-3 MONTHS [facility] ALL PROGESTERONEon 5 PROGESTERONE 17.3 ng/mL . [facility] Comment on above: Follicular phase 0.1 - 0.9 Luteal phase 1.8 - 23.9 Ovulation phase 0.1 - 12.0 First trimester 11.0 - 44.3 Second trimester 25.4 - 83.3 Third trimester 58.7 - 214.0 Postmenopausal 0.0 - 0.1 Performed at: [address] [id number] Computer Drafter: Evan Valenzuela PhD, Phone: [phone] [facility] DHEAon 12-30-2024 DHEA [Mass/Vol] 139 ng/dL Invalid Interpretation Code 31-202 [facility] Comment on above: Result Comment: This test was developed and its performance characteristics determined by [facility]. It has not been cleared or approved by the Food and Drug Administration. Performed at: [address] [id number] MD Everett Buckner Performed By: #### 1 [id number] #### [facility] [address] [place] [address] Progesteroneon 11-25-2024 Progesterone Lvl 5.59 ng/mL Invalid Interpretation Code [facility] Comment on above: Result Comment: 'F N ON FOLLICULAR = 0.10 - 0.60' 'LUTEAL = 3.00 - 17.5' 'MIDLUTEAL = 3.30 - 18.6' 'POST-MENOPAUSE = 0.10 - 0.40' '-FIRST TRIMESTER = 8.30 - 66.5' 'SECOND TRIMESTER = 18.9 - 66.1' 'THIRD TRIMESTER = 35.8 - 312.4' 'MALES = 0.14 - 2.06' Performed By: #### 2 [id number] #### [facility] [address] [place] [address] US Pelvis Non-OB Completeon 11-12-2024 US Pelvis [...] Left Ovary Volume: 11.1 cm3 Ordering Provider: Pee DEL RIO FINAL REPORT Dictated: 11/12/2024 12:14 pm Desmond Quinteros MD Signed (Electronic Signature): 11/12/2024 12:14 pm Signed by: Desmond Quinteros MD Transcribed by: MARVA Technologist: Norman CLEMENS [facility] US Transvaginal Non-OBon US Transvaginal Non-OB Exam Date/Time: 11/11/2024 12:54 EST Reason for Exam: E28.2 Report See ultrasound pelvis non-OB for report of ultrasound pelvis transvaginal. Ordering Provider: Pee DEL RIO FINAL REPORT Dictated: 11/12/2024 12:14 pm Desmond Quinteros MD Signed (Electronic Signature): 11/12/2024 12:14 pm Signed by: Desmond Quinteros MD Transcribed by: MARVA Technologist: Norman CLEMENS [facility] Anti-Mullerian Hormone (AMH) on 11-10-2024 Mullerian inhibiting substance [Mass/Vol] 5.77 ng/mL Invalid Interpretation Code [facility] Comment on above: Result Comment: For assays employing antibodies, the possibility exists for interference by heterophile antibodies in the samples.1 1.Andre Reed Interferences in Immunoassays - still a threat. Clin. Chem. 2000; 46: 1660-4938. This test was developed and its performance characteristics determined by [facility]. It has not been cleared or approved by the Food and Drug Administration. Reference Range: Females 36 - 40y: 0.42 - 8.34 Median 1.69 AMH concentrations of >= 1.06 ng/mL is correlated with a better response to ovarian stimulation, produced more retrievable oocytes and higher odds of live according to Gleicher et al. Fertility and Sterility. 2010: 94:7372-6339. The current AMH test method correlates with [...] exclude an AMH-secreting ovarian tumor. Performed at: [facility] [address] [place], [place] [id number] MD Rajeev Lala Performed By: #### 1 [id number] #### [facility] [address] [place] [address] DHEAon 11-10-2024 DHEA [Mass/Vol] 101 ng/dL Invalid Interpretation Code 31-701 [facility] Comment on above: Result Comment: This test was developed and its performance characteristics determined by [facility]. It has not been cleared or approved by the Food and Drug Administration. Performed at: [address] [id number] MD Everett Buckner Performed By: #### 1 [id number] #### [facility] [address] [place] [address] DHEASon 11-10-2024 DHEA-S [Mass/Vol] 91.8 microgram/dL Invalid Interpretation Code 57.3-279.2 [facility] Comment on above: Result Comment: Perf ormed at: [address] [id number] PhD Bianca Gordon Performed By: #### 1 [id number] #### [facility] [address] [place] [address] FSHon 11-07-2024 Follitropin Qn 5.2 m[IU]/mL Invalid Interpretation Code [facility] Comment on above: Result Comment: Adul t Female Range Follicular phase 3.5 - 12.5 Ovulation phase 4.7 - 21.5 Luteal phase 1.7 - 7.7 Postmenopausal 25.8 - 134.8 Performed at: [address] [id number] PhD Bianca Gordon Performed By: #### 2 [id number] #### [facility] [address] [place] [address] LHon 11-07-2024 Lutropin Qn 11.1 m[IU]/mL Invalid Interpretation Code [facility] Comment on above: Result Comment: Adul t Female Range Follicular phase 2.4 - 12.6 Ovulation phase 14.0 - 95.6 Luteal phase 1.0 - 11.4 Postmenopausal 7.7 - 58.5 Performed at: [address] [id number] PhD Bianca Gordon Performed By: #### 2 [id number] #### [facility] [address] [place] [address] BhCG Quanton 11-05-2024 HCG.beta subunit Qn m[IU]/mL Normal 1-3 [facility] Comment on above: Result Comment: 'F N ON < 1 - 3' ' 0.2 - 1 WEEK = 5 TO 50' ' 1 - 2 WEEKS = 50 - 500' ' 2 - 3 WEEKS = 100 - 5000' ' 3 - 4 WEEKS = 500 - 76159' ' 4 - 5 WEEKS = 1000 - 32733' ' 5 - 6 WEEKS = 78125 - 427035' ' 6 - 8 WEEKS = 94267 - 321042' ' 8 - 12 WEEKS = 14902 - 965432' Performed By: #### 2 [id number] #### [facility] [address] [place] [address] CBC w/ Auto Diffon 5 Basophils/100 WBC (Bld) 0.6 % Normal 0.0-2.0 [facility] Comment on above: Performed By: #### 2 [id number] #### [facility] [address] [place] [address] Basophils/Leukocytes Auto (Bld) [Pure # fraction] 0.0 E9/L Normal 0.0-0.2 [facility] Comment on above: Performed By: #### 2 [id number] #### [facility] [address] [place] [address] Eosinophils (Bld) [#/Vol] 0.1 E9/L Normal 0.0-0.5 [facility] Comment on above: Performed By: #### 2 [id number] #### [facility] [address] [place] [address] Eosinophils/100 WBC (Bld) 0.7 % Normal 0.0-8.0 [facility] Comment on above: Performed By: #### 2 [id number] #### [facility] [address] [place] [address] Erythrocyte distribution width (RBC) [Ratio] 14.0 % Normal 10.9-14.2 [facility] Comment on above: Performed By: #### 2 [id number] #### [facility] [address] [place] [address] Hematocrit (Bld) [Volume fraction] 44.7 % Normal 34.0-46.0 [facility] Comment on above: Performed By: #### 2 155802 #### [facility] [address] [place] [address] Hemoglobin (Bld) [Mass/Vol] 15.0 g/dL Normal 12.0-16.0 [facility] Comment on above: Performed By: #### 2 [id number] #### [facility] [address] [place] [address] Lymphocytes (Bld) [#/Vol] 2.3 E9/L Normal 1.0-4.0 [facility] Comment on above: Performed By: #### 2 [id number] #### [facility] [address] [place] [address] Lymphocytes/100 WBC (Bld) 26.2 % Normal 14.0-50.0 [facility] Comment on above: Performed By: #### 2 137003 #### [facility] [address] [place] [address] MCH (RBC) [Entitic mass] 27.3 pg Normal 27.0-34.0 [facility] Comment on above: Performed By: #### 2 419104 #### [facility] [address] [place] [address] MCHC (RBC) [Mass/Vol] 33.5 g/dL Normal 31.4-36.0 [facility] Comment on above: Performed By: #### 2 [id number] #### [facility] [address] [place] [address] MCV (RBC) [Entitic vol] 81.3 fL Normal 80.0-100.0 [facility] Comment on above: Performed By: #### 2 [id number] #### [facility] [address] [place] [address] Monocytes (Bld) [#/Vol] 0.5 E9/L Normal 0.2-1.0 [facility] Comment on above: Performed By: #### 2 951129 #### [facility] [address] [place] [address] Neutrophils (Bld) [#/Vol] 5.7 E9/L Normal 2.0-7.5 [facility] Comment on above: Performed By: #### 2 455562 #### [facility] [address] [place] [address] Neutrophils/100 WBC (Bld) 66.3 % Normal 36.0-75.0 [facility] Comment on above: Performed By: #### 2 135876 #### [facility] [address] [place] [address] Platelet mean volume (Bld) [Entitic vol] 7.5 fL Normal 6.4-10.8 [facility] Comment on above: Performed By: #### 2 857098 #### [facility] [address] [place] [address] Platelets (Bld) [#/Vol] 302.0 E9/L Normal 150.0-500.0 [facility] Comment on above: Performed By: #### 2 376342 #### [facility] [address] [place] [address] RBC (Bld) [#/Vol] 5.5 E12/L Normal 4.3-5.9 [facility] Comment on above: Performed By: #### 2 107890 #### [facility] [address] [place] [address] WBC corrected for nucl RBC Auto (Bld) [#/Vol] 8.6 E9/L Normal 4.0-11.0 [facility] Comment on above: Performed By: #### 2 996830 #### [facility] [address] [place] [address] CHEMISTRYOrdered By: SYSTEM SYSTEM on 11-05-2024 Free [...] 3 - 4 WEEKS = 500 - 05759' ' 4 - 5 WEEKS = 1000 - 68410' ' 5 - 6 WEEKS = 00577 - 175914' ' 6 - 8 WEEKS = 03137 - 192712' ' 8 - 12 WEEKS = 17340 - 396932' TSH Qn 0.99 m[IU]/L Normal 0.34 - 5.60 mcIU/mL Remisol Chem CHEMISTRYOrdered By: Catherine Armenta on 11-05-2024 HbA1c (Bld) [Mass fraction] 5.3 % Normal <=5.9% [facility] ChemAutoSS Free T4on 11-05-2024 Free T4 [Mass/Vol] 0.89 ng/dL Normal 0.58-1.64 [facility] Comment on above: Performed By: #### 2 [id number] #### [facility] [address] [place] [address] HEMATOLOGYOrdered By: SYSTEM SYSTEM on 11-05-2024 Basophils/100 [...] Normal 4.0 - 11.0 E9/L Remisol Heme [id number] 11-05-2024 HbA1c (Bld) [Mass fraction] 5.3 % Normal <=5.9 [facility] Comment on above: Performed By: #### 7 [id number] #### [facility] [address] [place] [address] Lab Miscellaneous-LCon 11-05 Lab Miscellaneous orderable test Invalid Interpretation Code [facility] Comment on above: Performed By: #### 1 [id number] #### [facility] [address] [place] [address] Lab Miscellaneous Orderable test Invalid Interpretation Code [facility] Comment on above: Performed By: #### 1 [id number] #### [facility] [address] [place] [address] Lab Miscellaneous Orderable test Invalid Interpretation Code [facility] Comment on above: Performed By: #### 1 [id number] #### [facility] [address] [place] [address] Test Code 71460 Invalid Interpretation Code [facility] Comment on above: Performed By: #### 1 [id number] #### [facility] [address] [place] [address] Test Code 504725 Invalid Interpretation Code [facility] Comment on above: Performed By: #### 1 [id number] #### [facility] [address] [place] [address] Test Name DHEA Invalid Interpretation Code [facility] Comment on above: Performed By: #### 1 [id number] #### [facility] [address] [place] [address] Test Name AMH Invalid Interpretation Code [facility] Comment on above: Performed By: #### 1 [id number] #### [facility] [address] [place] [address] Laboratory - Chemistry and C hemistry - challengeOrdered By: Maria Luisa Lutz on 11-05-2024 Sodium [Moles/Vol] 30695 mmol/L Invalid Interpretation Code [facility] SendOutsSS No Panel InformationOrdered By: Leia Foote on 11-05-2024 Lab Miscellaneous orderable test Invalid Interpretation Code [facility] SendOutsSS No Panel InformationOrdered By: Maria Luisa Lutz on 11-05-2024 Test Name DHEA Invalid Interpretation Code [facility] SendOutsSS Reference Laboratory Testing Ordered By: Maria Luisa Lutz on 11-05-2024 Sodium [Moles/Vol] 063178 mmol/L Invalid Interpretation Code [facility] SendOutsSS Test Name AMH Invalid Interpretation Code [facility] SendOutsSS TSHon 11-05-2024 TSH Qn 0.99 m[IU]/L Normal 0.34-5.60 [facility] Comment on above: Performed By: #### 2 [id number] #### [facility] [address] [place] [address] Family Medicine Office/Clini c Noteon 07-25-2024 Family [...] SEGOVIA CNP, FAM Within 4 weeks [address] [phone] [facility] (1) Additional Instructions: Weight management Patient Education [...] Recorded 2024-05-01: VIS DATE: 04/22/2021 SARS-CoV-2 (COVID-19) mRNAMUL.ORD![id number] 09/15/2022 Recorded influenza virus vaccine, inactivated 07/10/2022 Recorded 2024-05-01: NULL diphtheria/pertussis , acel/tetanus adult 02/06/2022 Recorded 2024-05-01: VIS DATE: 04/22/2021 influenza virus vaccine, inactivated 09/08/2021 Recorded SARS-CoV-2 (COVID-19) mRNA-1273 vaccine 09/08/2021 Recorded influenza virus vaccine, inactivated 06/29/2021 Rec (more content not included)... Normal [facility] Comment on above: Result Comment: Elec [...] ASHISH SEGOVIA CNP, FAM Within [address] [place] [phone] Business (1) Additional Instructions: Weight management [...] Recorded 2024-05-01: VIS DATE: 04/22/2021 SARS-CoV-2 (COVID-19) mRNAMUL.ORD![id number] 09/15/2022 Recorded influenza virus vaccine, inactivated 07/10/2022 Recorded 2024-05-01: NULL diphtheria/pertussis , acel/tetanus adult 02/06/2022 Recorded 2024-05-01: VIS DATE: 04/22/2021 influenza virus vaccine, inactivated 09/08/2021 Recorded SARS-CoV-2 (COVID-19) (more content not included)... Normal [facility] Comment on above: Result Comment: Elec [...] choosing us for your care. Norman Fried [facility] Family Medicine Office/Clini c Noteon 05-01-2024 Family [...] DAYS., # 30 tab(s), Refills(s) 0, Pharmacy: [facility], 166.6, cm, 05/01/24 10:12:00 EDT, Height/Length Dosing, 92.9, kg, 08... Follow-up No qualifying data available Problem List/Past [...] Recorded 2024-05-01: VIS DATE: 04/22/2021 SARS-CoV-2 (COVID-19) mRNAMUL.ORD![id number] 09/15/2022 Recorded influenza virus vaccine, inactivated 07/10/2022 [...] adult 05/11/2011 Recorde (more content not included)... Normal [facility] Comment on above: Result Comment: Elec tronically Signed By: ASHISH SEGOVIA CNP\.br\Date and Time Signed: 05/01/24 11:41 EDT Cytology Cervical or vaginal smear or scraping studyon 04-22-2024 [facility] Ambulatory Visit Summaryon 0 03-25-2024 Ambulatory Visit [...] choosing us for your care. Normal Fried [facility] Family Medicine Office/Clini c Noteon 03-25-2024 Family [...] answered. RTC as needed Ordered: Removal IUD 25975 2. BMI 32.0-32.9,adult (Z68.32: Body mass index [...] influenza virus vaccine, inactivated 06/29/2020 Recorded Normal [facility] Comment on above: Result Comment: Elec tronically Signed By: Daisha MILLER, Brianna Araujo\.br\Date and Time Signed: 03/25/24 13:14 EDT CBC w/ Auto Diffon 4 Basophils/100 WBC (Bld) 0.5 % Normal 0.0-2.0 [facility] Comment on above: Performed By: #### 2 [id number], [id number], [id number], [id number] #### [facility] [address] [place] [address] Basophils/Leukocytes Auto (Bld) [Pure # fraction] 0.0 E9/L Normal 0.0-0.2 [facility] Comment on above: Performed By: #### 2 [id number], [id number], [id number], [id number] #### [facility] [address] [place] [address] Eosinophils (Bld) [#/Vol] 0.1 E9/L Normal 0.0-0.5 [facility] Comment on above: Performed By: #### 2 478877, [id number], [id number], [id number] #### [facility] [address] [place] [address] Eosinophils/100 WBC (Bld) 0.8 % Normal 0.0-8.0 [facility] Comment on above: Performed By: #### 2 170798, [id number], [id number], [id number] #### [facility] [address] [place] [address] Erythrocyte distribution width (RBC) [Ratio] 13.6 % Normal 10.9-14.2 [facility] Comment on above: Performed By: #### 2 573837, [id number], [id number], [id number] #### [facility] [address] [place] [address] Hematocrit (Bld) [Volume fraction] 46.6 % High 34.0-46.0 [facility] Comment on above: Performed By: #### 2 959378, [id number], 2324848, [id number] #### [facility] [address] [place] [address] Hemoglobin (Bld) [Mass/Vol] 15.6 g/dL Normal 12.0-16.0 [facility] Comment on above: Performed By: #### 2 046571, [id number], 8761653, [id number] #### [facility] [address] [place] [address] Lymphocytes (Bld) [#/Vol] 2.3 E9/L Normal 1.0-4.0 [facility] Comment on above: Performed By: #### 2 011613, [id number], 0854962, 4558509 #### [facility] [address] [place] [address] Lymphocytes/100 WBC (Bld) 28.3 % Normal 14.0-50.0 [facility] Comment on above: Performed By: #### 2 365648, [id number], 8167846, 9295270 #### [facility] [address] [place] [address] 52129 MCH (RBC) [Entitic mass] 28.4 pg Normal 27.0-34.0 [facility] Comment on above: Performed By: #### 2 962090, 84494960, 4669249, 7440996 #### [facility] [address] [place] [address] 26698 MCHC (RBC) [Mass/Vol] 33.5 g/dL Normal 31.4-36.0 [facility] Comment on above: Performed By: #### 2 260076, 29154322, 5837371, 4112005 #### [facility] [address] [place] [address] 74913 MCV (RBC) [Entitic vol] 84.7 fL Normal 80.0-100.0 [facility] Comment on above: Performed By: #### 2 467355, 67022095, 6161572, 7205258 #### [facility] [address] [place] [address] 79989 Monocytes (Bld) [#/Vol] 0.6 E9/L Normal 0.2-1.0 [facility] Comment on above: Performed By: #### 2 396899, 51554067, 3219254, 2371905 #### [facility] [address] [place] [address] 87456 Neutrophils (Bld) [#/Vol] 5.2 E9/L Normal 2.0-7.5 [facility] Comment on above: Performed By: #### 2 466747, 63073539, 0249274, 9415107 #### [facility] [address] [place] [address] 96597 Neutrophils/100 WBC (Bld) 63.4 % Normal 36.0-75.0 [facility] Comment on above: Performed By: #### 2 987834, 91578667, 9896244, 8893908 #### [facility] [address] [place] [address] 26094 Platelet mean volume (Bld) [Entitic vol] 7.1 fL Normal 6.4-10.8 [facility] Comment on above: Performed By: #### 2 750068, 76572549, 1906829, 8704772 #### [facility] [address] [place] [address] Platelets (Bld) [#/Vol] 287.0 E9/L Normal 150.0-500.0 [facility] Comment on above: Performed By: #### 2 246116, 12062845, 7252283, 3473264 #### [facility] [address] [place] [address] RBC (Bld) [#/Vol] 5.5 E12/L Normal 4.3-5.9 [facility] Comment on above: Performed By: #### 2 488373, 01346704, 9835046, 0493751 #### [facility] [address] [place] [address] WBC corrected for nucl RBC Auto (Bld) [#/Vol] 8.2 E9/L Normal 4.0-11.0 [facility] Comment on above: Performed By: #### 2 116536, 49914496, 4788698, 9248031 #### [facility] [address] [place] [address] CMPon 01-12-2024 Calcium [Mass/Vol] 9.2 mg/dL Normal 8.9-11.1 [facility] Comment on above: Performed By: #### 2 671710, 31388077, 2053726, 0953730 #### [facility] [address] [place] [address] Chloride [Moles/Vol] 105 mmol/L Normal 101-111 [facility] Comment on above: Performed By: #### 2 382043, 31091351, 3447039, 3022070 #### [facility] [address] [place] [address] Glucose [Mass/Vol] 89 mg/dL Normal 55-199 [facility] Comment on above: Performed By: #### 2 930790, 54772468, 2225937, 5736580 #### [facility] [address] [place] [address] Potassium [Moles/Vol] 3.9 mmol/L Normal 3.5-5.3 [facility] Comment on above: Performed By: #### 2 950657, 50917617, 6409301, 9265230 #### [facility] [address] [place] [address] Sodium [Moles/Vol] 138 mmol/L Normal 135-145 [facility] Comment on above: Performed By: #### 2 126914, 33288658, 4127122, 0875723 #### [facility] [address] [place] [address] Urea nitrogen [Mass/Vol] 15 mg/dL Normal 5-21 [facility] Comment on above: Performed By: #### 2 548691, 09574854, 4612791, 9512866 #### [facility] [address] [place] [address] Anion gap [Moles/Vol] 12 mmol/L Normal 6-16 [facility] Comment on above: Performed By: #### 2 230015, 05298320, 8560667, 9089745 #### [facility] [address] [place] [address] CO2 [Moles/Vol] 25 mmol/L Normal 21-31 [facility] Comment on above: Performed By: #### 2 810693, 34392526, 7031400, 2023043 #### [facility] [address] [place] [address] Creatinine [Mass/Vol] 0.7 mg/dL Normal 0.5-1.3 [facility] Comment on above: Performed By: #### 2 959924, 86101673, 9910349, 2953389 #### [facility] [address] [place] [address] Urea nitrogen/Creatinine [Mass ratio] 21 No Units High 10-20 [facility] Comment on above: Performed By: #### 2 558826, 89681865, 6024205, 8042204 #### [facility] [address] [place] [address] Albumin [Mass/Vol] 4.3 g/dL Normal 3.3-5.0 [facility] Comment on above: Performed By: #### 2 730334, 19289694, 8287496, 2277048 #### [facility] [address] [place] [address] Albumin/Globulin (S) [Mass conc ratio] 1.4 Normal 1.1-2.2 [facility] Comment on above: Performed By: #### 2 588440, 04293907, 5879776, 0899569 #### [facility] [address] [place] [address] ALP [Catalytic activity/Vol] 64 Int._Unit/L Normal 21-98 [facility] Comment on above: Performed By: #### 2 167986, 51518041, 2704049, 1574787 #### [facility] [address] [place] [address] 52571 ALT No additional P-5'-P [Catalytic activity/Vol] 11 Int._Unit/L Normal 6-46 [facility] Comment on above: Performed By: #### 2 149973, 52600876, 9008368, 5154244 #### [facility] [address] [place] [address] AST [Catalytic activity/Vol] 13 Int._Unit/L Normal 5-43 [facility] Comment on above: Performed By: #### 2 658010, 14642674, 5048399, 9352636 #### [facility] [address] [place] [address] Bilirubin [Mass/Vol] 0.5 mg/dL Normal 0.0-1.1 [facility] Comment on above: Performed By: #### 2 709280, 00222621, 3596064, 0979591 #### [facility] [address] [place] [address] Globulin (S) [Mass/Vol] 3.1 g/dL Normal 1.4-4.0 [facility] Comment on above: Performed By: #### 2 601711, 83721075, 9010677, 8717246 #### [facility] [address] [place] [address] Protein [Mass/Vol] 7.4 g/dL Normal 6.0-7.8 [facility] Comment on above: Performed By: #### 2 594609, 51212214, 2843060, 6566185 #### [facility] [address] [place] [address] Consent for Treatmenton 12-17 Consent for Treatment [id number] #1.00TIFF Normal [facility] Lipid Panelon 01-12-2024 Cholesterol [Mass/Vol] 206 mg/dL High 120-200 [facility] Comment on above: Performed By: #### 2 323006, 89795769, 8816937, 6936878 #### [facility] [address] [place] [address] Cholesterol in HDL [Mass/Vol] 58 mg/dL Invalid Interpretation Code [facility] Comment on above: Result Comment: '>= 60 LOW RISK' '<= 40 HIGH RISK' Performed By: #### 2 960381, 19212070, 9050135, 6987844 #### [facility] [address] [place] [address] Cholesterol in LDL [Mass/Vol] 150 mg/dL High <=129 [facility] Comment on above: Performed By: #### 2 488587, 67102168, 5977177, 8970828 #### [facility] [address] [place] [address] Cholesterol in VLDL [Mass/Vol] 16 mg/dL Normal 7-40 [facility] Comment on above: Performed By: #### 2 266853, 17643934, 5645785, 6480808 #### [facility] [address] [place] [address] Triglyceride [Mass/Vol] 79 mg/dL Normal <=149 [facility] Comment on above: Performed By: #### 2 250582, 07215244, 9302418, 5033003 #### [facility] [address] [place] [address] Physician Orderon 01-12-2024 Physician Order [id number]#1.00TIFF Normal [facility] eGFRon 01-12-2024 eGFR 115 mL/min/1.73 m2 Normal >=59 [facility] Comment on above: Order Comment: Order added by Discern Expert. Performed By: #### 2 588792, 50390082, 2462886, 0547480 #### [facility] [address] [place] [address] CBC With Platelet and Differ entialon 08-16-2022 Basophils (Bld) [#/Vol] 0.1 10*3/uL Normal 0.0-0.2 [facility] Comment on above: Performed By: #### C BCWD #### [facility] [address] [place] [address] Basophils/100 WBC (Bld) 0.7 % Normal [facility] Comment on above: Performed By: #### C BCWD #### [facility] [address] [place] [address] Eosinophils (Bld) [#/Vol] 0.1 10*3/uL Normal 0.0-0.7 [facility] Comment on above: Performed By: #### C BCWD #### [facility] [address] [place] [address] Eosinophils/100 WBC (Bld) 1.0 % Normal [facility] Comment on above: Performed By: #### C BCWD #### [facility] [address] [place] [address] Erythrocyte distribution width (RBC) [Ratio] 13.5 % Normal 11.5-14.5 [facility] Comment on above: Performed By: #### C BCWD #### [facility] [address] [place] [address] Hematocrit (Bld) [Volume fraction] 44.1 % Normal 37.0-47.0 [facility] Comment on above: Performed By: #### C BCWD #### [facility] [address] [place] [address] Hemoglobin (Bld) [Mass/Vol] 14.9 g/dL Normal 12.0-16.0 [facility] Comment on above: Performed By: #### C BCWD #### [facility] [address] [place] [address] Lymphocytes (Bld) [#/Vol] 2.3 10*3/uL Normal 1.0-4.8 [facility] Comment on above: Performed By: #### C BCWD #### [facility] [address] [place] [address] Lymphocytes/100 WBC (Bld) 28.7 % Normal [facility] Comment on above: Performed By: #### C BCWD #### [facility] [address] [place] [address] MCH (RBC) [Entitic mass] 28.4 pg Normal 27.0-31.3 [facility] Comment on above: Performed By: #### C BCWD #### [facility] [address] [place] [address] MCHC 33.8 % Normal 33.0-37.0 [facility] Comment on above: Performed By: #### C BCWD #### [facility] [address] [place] [address] MCV (RBC) [Entitic vol] 84.2 fL Normal 79.4-94.8 [facility] Comment on above: Performed By: #### C BCWD #### [facility] [address] [place] [address] Monocytes (Bld) [#/Vol] 0.5 10*3/uL Normal 0.2-0.8 [facility] Comment on above: Performed By: #### C BCWD #### [facility] [address] [place] [address] Monocytes/100 WBC (Bld) 6.8 % Normal [facility] Comment on above: Performed By: #### C BCWD #### [facility] [address] [place] [address] Neutrophils (Bld) [#/Vol] 5.0 10*3/uL Normal 1.4-6.5 [facility] Comment on above: Performed By: #### C BCWD #### [facility] [address] [place] [address] Neutrophils/100 WBC (Bld) 62.8 % Normal [facility] Comment on above: Performed By: #### C BCWD #### [facility] [address] [place] [address] Platelets (Bld) [#/Vol] 271 10*3/uL Normal 130-400 [facility] Comment on above: Performed By: #### C BCWD #### [facility] [address] [place] [address] RBC (Bld) [#/Vol] 5.23 10*6/uL Normal 4.20-5.40 [facility] Comment on above: Performed By: #### C BCWD #### [facility] [address] [place] [address] WBC (Bld) [#/Vol] 7.9 10*3/uL Normal 4.8-10.8 [facility] Comment on above: Performed By: #### C BCWD #### [facility] [address] [place] [address] Comprehensive Metabolic Pane chantal 08-16-2022 Albumin [Mass/Vol] 4.3 g/dL Normal 3.5-4.6 [facility] Comment on above: Performed By: #### C MP #### [facility] [address] [place] [address] ALP [Catalytic activity/Vol] 72 U/L Normal 40-130 [facility] Comment on above: Performed By: #### C MP #### [facility] [address] [place] [address] ALT [Catalytic activity/Vol] 15 U/L Normal 0-33 [facility] Comment on above: Performed By: #### C MP #### [facility] [address] [place] [address] Anion gap [Moles/Vol] 12 mmol/L Normal 9-15 [facility] Comment on above: Performed By: #### C MP #### [facility] [address] [place] [address] AST [Catalytic activity/Vol] 19 U/L Normal 0-35 [facility] Comment on above: Performed By: #### C MP #### [facility] [address] [place] [address] Bilirubin [Mass/Vol] 0.3 mg/dL Normal 0.2-0.7 [facility] Comment on above: Performed By: #### C MP #### [facility] [address] [place] [address] Calcium [Mass/Vol] 9.3 mg/dL Normal 8.5-9.9 [facility] Comment on above: Performed By: #### C MP #### [facility] [address] [place] [address] Chloride [Moles/Vol] 104 mmol/L Normal 95-107 [facility] Comment on above: Performed By: #### C MP #### [facility] [address] [place] [address] CO2 [Moles/Vol] 26 mmol/L Normal 20-31 [facility] Comment on above: Performed By: #### C MP #### [facility] [address] [place] [address] Creatinine [Mass/Vol] 0.73 mg/dL Normal 0.50-0.90 [facility] Comment on above: Performed By: #### C MP #### [facility] [address] [place] [address] GFR >60.0 Normal >60 [facility] Comment on above: Result Comment: Dia kimc calculator link https://www.kidney.org/professionals/kdoqi/gfr_calculatorped Effective Jun 19, 2022 [...] secretion. Performed By: #### C MP #### [facility] [address] [place] [address] Globulin (S) [Mass/Vol] 2.8 g/dL Normal 2.3-3.5 [facility] Comment on above: Performed By: #### C MP #### [facility] [address] [place] [address] Glucose [Mass/Vol] 90 mg/dL Normal 70-99 [facility] Comment on above: Performed By: #### C MP #### [facility] [address] [place] [address] Potassium [Moles/Vol] 4.2 mmol/L Normal 3.4-4.9 [facility] Comment on above: Performed By: #### C MP #### [facility] [address] [place] [address] Protein [Mass/Vol] 7.1 g/dL Normal 6.3-8.0 [facility] Comment on above: Performed By: #### C MP #### [facility] [address] [place] [address] Sodium [Moles/Vol] 142 mmol/L Normal 135-144 [facility] Comment on above: Performed By: #### C MP #### [facility] [address] [place] [address] Urea nitrogen [Mass/Vol] 12 mg/dL Normal 6-20 [facility] Comment on above: Performed By: #### C MP #### [facility] [address] [place] [address] Lipid Panelon 08-16-2022 Cholesterol [Mass/Vol] 221 mg/dL Critically high 0-199 [facility] Comment on above: Result Comment: ATP III Cholesterol Classification is Borderline High. Performed By: #### L IPID #### [facility] [address] [place] [address] Cholesterol in HDL [Mass/Vol] 51 mg/dL Normal 40-59 [facility] Comment on above: Result Comment: ATP III [...] CHD Performed By: #### L IPID #### [facility] [address] [place] [address] Cholesterol in LDL [Mass/Vol] 149 mg/dL Critically high 0-129 [facility] Comment on above: Result Comment: ATT III Classification is Borderline High. Performed By: #### L IPID #### [facility] [address] [place] [address] Triglyceride [Mass/Vol] 105 mg/dL Normal 0-150 [facility] Comment on above: Result Comment: ATP III Triglycerides Classification is Normal. Performed By: #### L IPID #### [facility] [address] [place] [address] CNPNon 10-18-2021 CNPN Telephone (OPHTNR) JASON WHITE ([id number]) 1990 F Date Time Provider Department 10/18/21 [...] Date Reviewed: 10/12/2021 Reviewed by: Jennie Gamez, LIAM - Fully Assessed Reason for Visit: Contact Lens Question [4322] Prescriptions as of 10/18/2021 - triamcinolone acetonide [...] Status:Closed by JENNIE GAMEZ on 10/18/21 Normal [facility] SARS-CoV-2 (COVID-19) RT-PCR on 07-05-2021 SARS-CoV-2 (COVID-19) RNA OLGA+probe Ql (Unsp spec) Positive Abnormal [facility] Comment on above: Order Comment: Thomas garibay [...] Authorization (EUA) and has been verified by [facility]. 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 Normal [facility] Quantiferon TB Goldon 2020 Quantiferon TB Gold Indeterminate Normal Negative [facility] Comment on above: Result Comment: An [...] to Dr. Alexander Jaimes or Testing Performed: [employer]. [facility] [place] [address] Performed By: #### Q UTBG #### [address] [address] SPINE, LUMBOSACRAL; MIN 4 EWSon 10-08-2017 SPINE, LUMBOSACRAL; MIN 4 VIEWS Name: JASON WHITE STUDY:SPINE, LUMBOSACRAL; MIN 4 VIEWS; 10/08/2017 10:50 am INDICATION:Signs/Sym ptoms: Lower lumbar tenderness. COMPARISON:None. ORDERING CLINICIAN:GIOVANY JOSUE FINDINGS:Alignment: AP alignment is maintained Disc levels: Maintained Bony structures: The bony structures are intact there however doesappear to be partial lumbar lumbarization of the S1 vertebral body,presumed for nomenclature. Other findings: None significant IMPRESSION:Unremarka ble exam.Electronically signed by: KIN DELGADO MD Normal [facility] Vital Signs Date Time Vital Sign Value Performing Clinician Myron prince 03-27-2025 10:39-0400 Body weight 99.97 kg [facility] 03-27-2025 10:39-0400 Diastolic blood pressure 82 mm[Hg] [facility] 03-27-2025 10:39-0400 Systolic blood pressure 130 mm[Hg] [facility] 11-04-2024 08:39-0500 Body weight 98.88 kg Pee Eliane DO Work Phone: [facility] 11-04-2024 08:39-0500 Diastolic blood pressure 78 mm[Hg] Pee Eliane DO Work Phone: [facility] 11-04-2024 08:39-0500 Systolic blood pressure 122 mm[Hg] Pee Eliane DO Work Phone: [facility] Encounters Encounter Date Encounter Type Care Provider Facility Start: 04-07-2025 End: 04-07-2025 ambulatory PEE ELIANE Not Available Start: 03-27-2025 End: 03-27-2025 Office outpatient visit 5 minutes Eliane Nurse [facility] Comment on above: [place]: 8w5d Start: 03-27-2025 End: 03-27-2025 ambulatory PEE ELIANE Not Available Start: 02-27-2025 End: 02-27-2025 Clinisync Result Encounter Pee Eliane DO Work Phone: [facility] Unsolicited Start: 02-27-2025 End: 02-27-2025 Clinisync Result Encounter Pee Eliane DO Work Phone: [facility] Start: 02-25-2025 End: 02-25-2025 Clinisync Result Encounter Pee Eliane DO Work Phone: [facility] Start: 02-25-2025 End: 02-25-2025 Clinisync Result Encounter Pee Eliane DO Work Phone: [facility] Start: 02-14-2025 End: 02-15-2025 Clinisync Result Encounter Pee Eliane DO Work Phone: [facility] Start: 02-14-2025 End: 02-15-2025 Clinisync Result Encounter Pee Eliane DO Work Phone: [facility] Start: 01-20-2025 End: 01-20-2025 ambulatory Pee R ELIANE Facility:[facility] Start: 12-22-2024 End: 12-22-2024 ambulatory Pee R ELIANE Facility:[facility] Start: 12-22-2024 End: 12-22-2024 Lab Drop off Pee R ELIANE [facility] Start: 11-24-2024 End: 11-24-2024 Lab Drop off Brianna L Daisha [facility] Start: 11-24-2024 End: 11-24-2024 ambulatory Brianna L Daisha Facility:[facility] Start: 11-11-2024 End: 11-11-2024 ambulatory Pee R ELIANE Facility:[facility] Start: 11-11-2024 End: 11-11-2024 Patient encounter procedure Pee R ELIANE [facility] Start: 11-05-2024 End: 11-05-2024 Lab Drop off Pee R ELIANE [facility] Start: 11-05-2024 End: 11-05-2024 ambulatory JAMES ROMERO Facility:[facility] Start: 11-04-2024 End: 11-04-2024 Bamboo flowsheet Pee Eliane DO Work Phone: [facility] Start: 11-04-2024 End: 11-04-2024 Bamboo flowsheet Pee Eliane DO Work Phone: [facility] Start: 11-04-2024 End: 11-04-2024 Office outpatient visit 15 minutes Pee Eliane DO Work Phone: [facility] Comment on above: Encounter for infert ility; PCOS (polycystic ovarian syndrome); Abnormal uterine bleeding (AUB); Hormone disorder Start: 11-04-2024 End: 11-04-2024 ambulatory PEE ELIANE Not Available Start: 07-25-2024 End: 07-25-2024 ambulatory JAMES JACKSONDOCK Facility:[facility] Start: 07-02-2024 End: 07-02-2024 ambulatory JAMES ROMERO Facility:[facility] [place] [facility] Start: 07-02-2024 End: 07-02-2024 ambulatory [place] ASHISH A LUCA Facility:[facility] Start: 05-01-2024 End: 05-01-2024 ambulatory [place] [employer] ASHISH A LUCA Facility:[facility] Start: 04-22-2024 End: 04-22-2024 ambulatory DIANE CASAREZ Not Available Start: 03-25-2024 End: 03-25-2024 ambulatory Briannaangel Jeffriesab Facility:[facility] Start: 01-12-2024 End: 01-12-2024 ambulatory JAMES M NICK Facility:[facility] Start: 06-08-2022 End: 06-08-2022 ambulatory ANGELIA MCCARTHY Facility:[facility] Start: 06-08-2022 End: 06-08-2022 Patient encounter procedure Angelia Mccarthy MD Work Phone: Ophthalmology Comment on above: Myopic astigmatism o f both eyes (Primary Dx); Refractive error Start: 10-12-2021 End: 10-12-2021 ambulatory JENNIE YAMARY Facility:[facility] Start: 10-11-2021 Orders Only Jennie Yarham OD Work Phone: Ophthalmology Start: 10-08-2017 Ambulatory Giovany Josue Facility:[facility] Procedures Date Procedure Procedure Detail Performing Clinician Start: 03-27-2025 Urnls dip stick/tabl et rgnt non-auto w/o micrscp Pee Eliane DO Work Phone: Start: 02-27-2025 [facility] PREG QUANT HCG Core y Eliane DO Work Phone: Start: 02-25-2025 [facility] PREG QUANT HCG Core y Eliane DO Work Phone: Start: 02-14-2025 ALL PROGESTERONE Pee Eliane DO Work Phone: Start: 04-22-2024 Microscopic observat ion [Identifier] in Cervix by Cyto stain Peejanie Oseguerao DO Work Phone: Start: 04-22-2024 Cytp cerv/vag auto t hin layer prep mnl screen Diane NEW Work Phone: Cyst (disorder) Pee DEL RIO Insertion of intraut erine contraceptive device Pee DEL RIO Plan of Treatment Date Care Activity Detail Author Start: 04-22-2029 Screening for malign ant neoplasm of cervix [facility] Start: 05-18-2025 Influenza vaccination [facility] Start: 04-28-2025 End: 04-28-2025 Patient encounter procedure 04/28/2025 11:00 AM EDT Office Visit [facility] [address] [place] [address] Diane Casarez PA [address] [place], [place] [id number] [facility] Start: 04-21-2025 End: 04-21-2025 Patient encounter procedure 04/21/2025 9:30 AM EDT Routine [facility] [address] [place] [address] Pee Del Rio DO [address] [place], [place] [id number] [facility] Start: 04-07-2025 End: 04-07-2025 Professional / ancillary services management 04/07/2025 9:30 AM EDT Ancillary Procedure [facility] [address] [place] [address] [facility] Start: 03-27-2025 End: 03-27-2026 ABO/Rh ABO/Rh Lab Routine Missed menses , unspecified gestational age ([facility]) Expected: 03/27/2025 (Approximate), Expires: 03/27/2026 [facility] Comment on above: Expected: 03/27/2025 (Approximate), Expires: 03/27/2026 Start: 03-27-2025 End: 03-27-2026 Blood type and Indirect antibody screen panel - Blood Type and screen Lab Routine Missed menses , unspecified gestational age ([facility]) Expected: 03/27/2025 (Approximate), Expires: 03/27/2026 [facility] Work Phone: Comment on above: Expected: 03/27/2025 (Approximate), Expires: 03/27/2026 Start: 03-27-2025 End: 03-27-2026 Drugs of abuse panel - Urine by Screen method Rapid drug screen, urine Lab Routine , unspecified gestational age ([facility]) Encounter for supervision of normal first in first trimester ([facility]) Expected: 03/27/2025 (Approximate), Expires: 03/27/2026 [facility] Comment on above: Expected: 03/27/2025 (Approximate), Expires: 03/27/2026 Start: 03-27-2025 End: 06-27-2025 US Pelvis transvaginal US OB transvaginal Imaging Routine , unspecified gestational age ([facility]) Encounter for supervision of normal first in first trimester ([facility]) Expected: 03/27/2025, Expires: 06/27/2025 [facility] Comment on above: Expected: 03/27/2025 , Expires: 06/27/2025 Start: 03-10-2025 End: 03-10-2025 Patient encounter procedure 03/10/2025 8:40 AM EDT Office Visit [facility] [address] [place] [id number] Pee Del Rio, [address] [place] [address] [facility] Start: 11-04-2024 End: 11-04-2025 Antimullerian hormone (AMH) Antimullerian hormone (AMH) Lab Routine PCOS (polycystic ovarian syndrome) Abnormal uterine bleeding (AUB) Expected: 11/04/2024 (Approximate), Expires: 11/04/2025 [facility] Comment on above: Expected: 11/04/2024 (Approximate), Expires: 11/04/2025 Start: 11-04-2024 End: 11-04-2025 DHEA DHEA Lab Routine PCOS (polycystic ovarian syndrome) Expected: 11/04/2024 (Approximate), Expires: 11/04/2025 [facility] Comment on above: Expected: 11/04/2024 (Approximate), Expires: 11/04/2025 Start: 11-04-2024 End: 11-04-2025 US Pelvis US Pelvis w/ TV Imaging Routine PCOS (polycystic ovarian syndrome) Expected: 11/04/2024, Expires: 11/04/2025 [facility] Comment on above: Expected: 11/04/2024 , Expires: 11/04/2025 Start: 11-04-2024 End: 11-04-2024 Patient encounter procedure 11/04/2024 8:40 AM EST Office Visit [facility] [address] [place] [address] ElianePee rhodes, DO [address] [place] [address] Arrived [facility] Comment on above: Arrived Start: 05-18-2024 Influenza vaccination Influenza Vacc ine (#1) [facility] Start: 05-18-2022 Influenza vaccination INFLUENZA (#1) [facility] Start: 05-18-2021 Influenza vaccination INFLUENZA (#1) [facility] Start: 01-10-2018 HPV TESTING HPV TESTING [facility] Start: 01-10-2009 PAP TESTING PAP TESTING [facility] Start: 01-10-2007 Urine microalbumin profile DTAP,TDAP,TD (1 - Tdap) [facility] Start: 01-10-2006 HIV SCREENING HIV SCREENING [facility] Start: 2000 Adult depression screening assessment DEPRESSION SCREENING [facility] Start: 01-10-1993 COVID-19 VACCINE (1) COVID-19 VACCIN E (1) [facility] Start: 1988 HEPATITIS B (1 of 3 - 3-dose series) HEPATITIS B (1 of 3 - 3-dose series) [facility] Bacteria identified in Urine by Culture Urine culture Microbiology Routine Missed menses Ordered: 03/27/2025 [facility] Comment on above: Ordered: 03/27/2025 CBC W Auto Different ial panel - Blood CBC and differential Lab Routine PCOS (polycystic ovarian syndrome) Ordered: 11/04/2024 [facility] Comment on above: Ordered: 11/04/2024 CBC W Auto Different ial panel - Blood CBC and differential Lab Routine Missed menses , unspecified gestational age ([facility]) Ordered: 03/27/2025 [facility] Comment on above: Ordered: 03/27/2025 DHEA-sulfate DHEA-sulfate Lab Routine PCOS (polycystic ovarian syndrome) Ordered: 11/04/2024 [facility] Comment on above: Ordered: 11/04/2024 Follicle stimulating hormone Follicle stimulating hormone Lab Routine PCOS (polycystic ovarian syndrome) Ordered: 11/04/2024 [facility] Comment on above: Ordered: 11/04/2024 hCG, quantitative, hCG, quantitative, Lab Routine PCOS (polycystic ovarian syndrome) Ordered: 11/04/2024 [facility] Work Phone: Comment on above: Ordered: 11/04/2024 Hemoglobin A1c/Hemoglobin.total in Blood Hemoglobin A1c Lab Routine Abnormal uterine bleeding (AUB) Ordered: 11/04/2024 [facility] Comment on above: Ordered: 11/04/2024 Hemoglobin A1c/Hemoglobin.total in Blood Hemoglobin A1c Lab Routine Missed menses , unspecified gestational age ([facility]) Ordered: 03/27/2025 [facility] Comment on above: Ordered: 03/27/2025 Hepatitis B virus surface Ag [Presence] in Serum or Plasma by Immunoassay Hepatitis B surface antigen Lab Routine Missed menses , unspecified gestational age ([facility]) Ordered: 03/27/2025 [facility] Comment on above: Ordered: 03/27/2025 Hepatitis C virus Ab [Presence] in Serum or Plasma by Immunoassay Hepatitis C antibody Lab Routine Missed menses , unspecified gestational age ([facility]) Ordered: 03/27/2025 [facility] Comment on above: Ordered: 03/27/2025 HIV-1/HIV-2 antigen/antibody combination immunoassay HIV-1 and HIV-2 antibodies Lab Routine Missed menses , unspecified gestational age ([facility]) Ordered: 03/27/2025 [facility] Comment on above: Ordered: 03/27/2025 Luteinizing hormone Luteinizing hormone Lab Routine PCOS (polycystic ovarian syndrome) Ordered: 11/04/2024 [facility] Comment on above: Ordered: 11/04/2024 Progesterone Progesterone Lab Routine PCOS (polycystic ovarian syndrome) Hormone disorder Ordered: 11/04/2024 [facility] Comment on above: Ordered: 11/04/2024 Reagin Ab [Presence] in Serum by RPR RPR Lab Routine Missed menses , unspecified gestational age ([facility]) Ordered: 03/27/2025 [facility] Comment on above: Ordered: 03/27/2025 Rubella antibody, IgG Rubella an tibody, IgG Lab Routine Missed menses , unspecified gestational age ([facility]) Ordered: 03/27/2025 [facility] Comment on above: Ordered: 03/27/2025 Thyrotropin [Units/volume] in Serum or Plasma TSH Lab Routine PCOS (polycystic ovarian syndrome) Ordered: 11/04/2024 [facility] Comment on above: Ordered: 11/04/2024 Thyroxine (T4) free [Mass/volume] in Serum or Plasma T4, free Lab Routine PCOS (polycystic ovarian syndrome) Ordered: 11/04/2024 [facility] Comment on above: Ordered: 11/04/2024 [facility] Immunizations Immunization Date Immunization Notes Care Provider Vikas vaughn 06-18-2023 influenza, unspecifi ed formulation Pee DEL RIO [facility] 06-18-2023 influenza virus vaccine, unspecified formulation Pee Del Rio DO Work Phone: [facility] Comment on above: Result Comment: 2023: VIS DATE: 04/22/2021 09-15-2022 SARS-CoV-2 (COVID-19 ) [id number] Pee DEL RIO [facility] 07-10-2022 influenza virus vaccine, unspecified formulation Pee DEL RIO [facility] Comment on above: Result Comment: 2023: NULL 02-06-2022 tetanus toxoid, redu west diphtheria toxoid, and acellular pertussis vaccine, adsorbed Pee ELIANE [facility] Comment on above: Result Comment: 2023: VIS DATE: 04/22/2021 09-08-2021 influenza virus vaccine, unspecified formulation Pee ELIANE [facility] 09-08-2021 SARS-CoV-2 (COVID-19 ) mRNA-1273 vaccine Pee ELIANE [facility] 06-29-2021 influenza virus vaccine, unspecified formulation Pee ELIANE [facility] Comment on above: Result Comment: 2023: NULL 11-30-2020 SARS-CoV-2 (COVID-19 ) mRNA BNT-162b2 vax Pee ELIANE [facility] Comment on above: Result Comment: 2023: TPV23 11-09-2020 SARS-CoV-2 (COVID-19 ) mRNA BNT-162b2 vax Pee ELIANE [facility] Comment on above: Result Comment: 2023: TPV23 10-12-2020 SARS-CoV-2 (COVID-19 ) mRNA-1273 vaccine Epe ELIANE [facility] 09-14-2020 SARS-CoV-2 (COVID-19 ) mRNA-1273 vaccine Pee ELIANE [facility] 06-29-2020 influenza virus vaccine, unspecified formulation Pee ELIANE [facility] 09-19-2019 influenza virus vaccine, unspecified formulation Pee ELIAEN [facility] 06-25-2018 influenza virus vaccine, unspecified formulation Pee ELIANE [facility] 06-03-2015 influenza virus vaccine, unspecified formulation Pee ELIANE [facility] 06-28-2013 influenza virus vaccine, unspecified formulation Pee ELIANE [facility] 05-11-2011 tetanus toxoid, redu west diphtheria toxoid, and acellular pertussis vaccine, adsorbed Pee ELIANE [facility] 01-30-2000 measles, mumps and rubella virus vaccine Pee ELIANE [facility] 02-15-1999 hepatitis B vaccine, pediatric or pediatric/adolescent dosage Pee ELIANE [facility] Payers Date Payer Category Payer Private Health Insurance [employer] [id number] 2021 Unknown MMO MMO [employer] [id number] 2021-Present [phone] [address] [place] [address] PPO [id number] 2021 Unknown [id number] 2021 Unknown [id number] 1988 Unknown [id number] 2.16.840.1.653132.3.579.2. 1258 1988 Unknown [id number] 2.16.840.1.853619.3.579.2. 1988 Unknown [id number] 2.16.840.1.720687.3.579.2 1988 Unknown [id number] 2.16.840.1.298375.3.579.2 1988 Unknown [id number] 2.16.840.1.024651.3.579.2 1988 Unknown [id number] 2.16.840.1.139951.3.579.2 1988 Unknown [id number] 2.16.840.1.367175.3.579.2 1988 Unknown [id number] 2.16.840.1.298978.3.579.2 1988 Unknown [id number] 2.16.840.1.139052.3.579.2 1988 Unknown [id number] 2.16.840.1.340106.3.579.2 1988 Unknown [id number] 2.16.840.1.137619.3.579.2 1988 Unknown [id number] 2.16.840.1.944982.3.579.2 1988 Unknown [id number] 2.16.840.1.300189.3.579.2 1988 Unknown [id number] 2.16.840.1.232026.3.579.2. 1258 1988 Unknown [id number] 2.16.840.1.485167.3.579.2. 1259 1988 Unknown [id number] 2.16.840.1.106294.3.579.2. 1259 1988 Unknown [id number] 2.16.840.1.656708.3.579.2. 1259 Unknown [id number] Social History Date Type Detail Facility Start: 09-02-2012 End: 07-25-2024 Tobacco smoking status MSIS Never smoked tobacco [facility] Start: 09-02-2012 End: 06-08-2022 Alcohol intake Current non-drinker of alcohol (finding) [facility] Start: 1990 Sex Assigned At Female [facility] Exposure to SARS-CoV -2 (event) Yes [facility] Start: 10-12-2021 Tobacco use and exposure Smokeless tobacco non-user [facility] Tobacco smoking stat [facility] Tobacco smoking consumption unknown [facility] Start: 01-29-2024 Gender identity Identifies as female gender (finding) [facility] Start: 01-29-2024 Sexual orientation Heterosexual (finding) [facility] Tobacco smoking status Never [facility] [place] Sex Assigned At Female [facility] Sexual Orientation [facility] Start: 02-07-2019 Sex Female (finding) [facility] Start: 02-08-2025 [facility] Clinical Notes 10-12-2021 to 03-27-2025 Kyra Dillard LPN - 03/27/2025 10:00 AM Fadi Marcos LPN - 11/04/2024 8:40 AM Abiodun Mccarthy MD - 06/08/2022 8:11 AM EDTRadiology Note Date & Type Note Facility 03-27-2025 History of Present illness Narrative Reason for Appointment: Patient ID: Jason Coronel is a 35 y.o. female who presents for Amenorrhea Patient presents today for a Nurse OB Intake appointment. Patient is 8w5d with a Estimated Date of Delivery: 2/15/26 OB History Para Term AB Living 1 0 0 0 0 0 SAB IAB Ectopic Multiple Live Births 0 0 0 0 0 # Outcome Date GA Lbr Marco/2nd Weight Sex Type Anes PTL Lv 1 Current Current Medications: has a current medication list which includes the following prescription(s): ondansetron. Medical History: Active Ambulatory Problems Diagnosis Date Noted PCOS (polycystic ovarian syndrome) 02/24/2025 Positive urine test ([facility]) 02/24/2025 Resolved Ambulatory Problems Diagnosis Date Noted No Resolved Ambulatory Problems Past Medical History: Diagnosis Date Eczema Family History Problem Relation Name Age of Onset Other (high blood pressure) Mother Social History Tobacco Use Smoking status: Not on file Smokeless tobacco: Not on file Substance Use Topics Alcohol use: Not on file Drug use: Not on file Past Surgical History: Procedure Laterality Date LASIK No Known Allergies Vitals: There is no height or weight on file to calculate BMI. BP: 130/82 Patient's last menstrual period was 01/25/2025. Assessment/Plan Diagnoses and all orders for this visit: Missed menses - Type and screen; Future - ABO/Rh; Future - CBC and differential - Hemoglobin A1c - RPR - Rubella antibody, IgG - Hepatitis B surface antigen - Hepatitis C antibody - HIV-1 and HIV-2 antibodies - Urine culture - POCT , urine manually resulted - POCT urinalysis dipstick manually resulted , unspecified gestational age ([facility]) - Type and screen; Future - ABO/Rh; Future - CBC and differential - Hemoglobin A1c - RPR - Rubella antibody, IgG - Hepatitis B surface antigen - Hepatitis C antibody - HIV-1 and HIV-2 antibodies - Rapid drug screen, urine; Future - OB transvaginal; Future Encounter for supervision of normal first in first trimester ([facility]) - Rapid drug screen, urine; Future - OB transvaginal; Future Nausea - ondansetron (Zofran) 4 MG tablet; Take 2 tablets (8 mg) by mouth if needed for nausea or vomiting Nurse Note: OB Intake: Patient presents today for first OB visit. Patients history has been reviewed in great detail including any potential risks. Patient signed consent forms and patient desires testing in both trimesters. Patient currently has no complaints and has been advised to drink 6-8 glasses of water a day, eat no raw or undercooked meat, and stay away from [facility]. Patient has also been advised to not change litter boxes and eat 6 small meals a day. Patient has been consulted regarding the do's and don'ts of . Patient was given labs and all questions and concerns were answered. Patient will return in office in 1 week for a viability ultrasound on second sac which was noted a visit today. Patient is aware she will need to wait for [place] labs to be given until verified. Script for Zofran sent to pharmacy for patient. Patient having some constipation/diarrhea and vomiting. Encouraged zofran and fiber at this time. Follow Up: Patient is to return in 4 weeks for routine OB appointment. Follow Up: Patient is to have labs drawn at directed and return to office for initial OB appointment with provider. Patient may call office as needed with any concerns or questions. Nurse Visit Completed by: Kyra Dillard LPN documented in this encounter [facility] 12-22-2024 Evaluation + Plan note Diagnostic Tests PendingDHEA 12/22/[address] [facility] 11-24-2024 Note Nurse Consultation N ote Reason [...] Recorded 2024-05-01: VIS DATE: 04/22/2021 SARS-CoV-2 (COVID-19) [id number] 09/15/2022 Recorded influenza virus vaccine, inactivated 07/10/2022 [...] Recorded hepatitis B pediatric vaccine 02/15/1999 Recorded [facility] 11-24-2024 Evaluation + Plan note Diagnostic Tests PendingProgesterone Level 11/24/[address] [facility] 11-04-2024 History of Present illness Narrative Reason [...] nursing note reviewed. Exam conducted with a audit analyst present. Vitals: There is no height or [...] by Arline Marcos LPN on behalf of: Pee Del Rio DO documented in this encounter [facility] 07-25-2024 Note Patient Education Genetic Medicine Diet for Metabolic Syndrome Metabolic syndrome is a disorder that includes three or more of the following conditions: ??? Abdominal obesity, as seen in a large waist measurement. ??? Too much sugar (glucose) in your blood. ??? High blood pressure (hypertension). ??? Oofruj-eksr-mgljjl amount of fat (lipids) in your blood. ??? Njxrp-wstt-xenwzo level of good cholesterol (HDL). Keeping an [...] Berries. Apples. Oranges. Peaches. Apricots. Plums. Grapes. [place]. Papaya. Pomegranate. Kiwi. Cherries. Vegetables Lettuce. Spinach. Leafy greens, including kale, chard, zoe greens, and mustard greens. Peas. Beets. Cauliflower. Cabbage. Broccoli. Carrots. Green beans. Tomatoes. Squash. Eggplant. Peppers. Onions. Cucumbers. Sunshine sprouts. Sweet potatoes. Yams. Beans. Lentils. Grains [...] fats, nuts, a (more content not included)... [facility] 06-08-2022 Note HNO ID: [id number] Author: Angelia Mccarthy MD Service: ? Author Type: Physician [...] agree with all of its relevant components. Angelia Mccarthy MD June 08, 2022 8:13 AM [facility] 06-08-2022 History of Present illness Narrative Patient [...] agree with all of its relevant components. Angelia Mccarthy MD June 08, 2022 8:13 AM documented in this encounter [facility] 10-12-2021 Note HNO ID: [id number] Author: Jennie Gamez OD Service: ? Author Type: WALL CLEANER Type: Progress Notes Filed: 10/18/2021 1:30 PM [...] by others. I have seen and examined Jasonpedro luis White. I also have reviewed and agree with the assessment and plan as stated above and agree with all of its relevant components. Jennie Gamez OD [facility] Evaluation + Plan note Future Appointments Appointment Date:11/11/2024 12:00:00 PM Scheduled Provider: Location:[facility] Appointment Type:US Abdominal/Pelvis ([facility]) Diagnostic Tests PendingLuteinizing Hormone 11/05/24FSH Level 11/05/24DHEA 11/05/24DHEAS 11/05/24Anti-Mullerian Hormone (AMH) 11/05/24 Future Scheduled TestsUS Pelvis Non-OB Complete 11/11/24US Transvaginal Non-OB 11/11/[address] [facility] Evaluation note Diagnosis Myopic astigmatism of both eyes- Primary Refractive error Unspecified disorder of refraction and accommodation [facility] Encounter for infertility PCOS (polycystic ovarian syndrome) Polycystic ovaries Abnormal uterine bleeding (AUB) Hormone disorder Unspecified endocrine disorder documented in this encounter [facility]* Diagnosis Missed menses , unspecified gestational age ([facility]) Encounter for supervision of normal first in first trimester ([facility]) Nausea Nausea alone [facility] Narrative No data available for this section [facility] Hospital Discharge instructions No data available for this section [facility] Progress note No data available for this section [facility] Summary Purpose Family History No Family History [...] section and content) DATE CREATED AUTHOR 03/11/2018 [facility] DATE CREATED AUTHOR AUTHOR'S ORGANIZ ATION 09/03/2021 [facility] DATE CREATED AUTHOR AUTHOR'S ORGANIZ ATION 06/18/2022 [facility] DATE CREATED AUTHOR AUTHOR'S ORGANIZ ATION 08/17/2022 [facility] DATE CREATED AUTHOR AUTHOR'S ORGANIZ ATION 04/24/2024 [facility] DATE CREATED AUTHOR AUTHOR'S ORGANIZ ATION 11/06/2024 [facility] DATE CREATED AUTHOR AUTHOR'S ORGANIZ ATION 11/07/2024 Fried Robi [facility] DATE CREATED AUTHOR AUTHOR'S ORGANIZ ATION 11/09/2024 Fried Robi [facility] DATE CREATED AUTHOR AUTHOR'S ORGANIZ ATION 11/12/2024 [facility] Woodson [facility] DATE CREATED AUTHOR AUTHOR'S ORGANIZ ATION 12/06/2024 [facility] DATE CREATED AUTHOR AUTHOR'S ORGANIZ ATION 12/24/2024 [facility] DATE CREATED AUTHOR AUTHOR'S ORGANIZ ATION 01/27/2025 Fried Robi [facility] DATE CREATED AUTHOR AUTHOR'S ORGANIZ ATION 04/08/2025 [facility] EPIC Source Comments (unrecognize d section and content) In the event this informatio n is protected by the Federal Confidentiality of Alcohol and Drug Abuse Patient Records regulations: The Federal rules restrict any use of the information to criminally investigate or prosecute any alcohol or drug abuse patient.[facility] the event this information is protected by the Federal Confidentiality of Alcohol and Drug Abuse Patient Records regulations: The Federal rules restrict any use of the information to criminally investigate or prosecute any alcohol or drug abuse patient.[facility] Care Teams (unrecognized sec tion and content) Outside Operator Relationship Specialty Start Date End Date Li Guillen [id number] [facility] [address] [place] [address] PCP - General 09/02/12 Outside Operator Relationship Specialty Start Date End Date Li Guillen [id number] [facility] [address] [place] [address] PCP - General 09/02/12 Reason for Visit (unrecogniz ed section and content) Reason Comments Refractive evaluation BLURRED UCVA OU Reason Comments Infertility Pt present today to discuss fertility Reason Comments Amenorrhea FOR RECORDS PERTAINING TO PATIENTS WHO ARE [...] BE BASED ON THE PRIMARY CLINICAL RECORDS. [facility]. provides no warranty or guarantee of the accuracy or completeness of information in this document.
--- OUTSIDE RECORDS SUMMARY | 2025-04-21 09:30 | XMS_ITS | Encounter Summary ---
Author Organization [facility] Address [address] [place] [address] Care Team Providers Care Plant Anatomy Teacher Name Role Phone Unavailable Primary Care Provider Unavailabl e Reason for Visit * Reason Comments Routine Visit Encounter Details Date Type Department Care Team (Late st Contact Info) Description 04/21/2025 9:30 AM EDT Routine [facility] [address] [place] [address] Pee Del Rio DO [address] [place] [address] First trimester ([facility]); 13 weeks gestation of ([facility]) Social History Tobacco Use Types Packs/Day Years [...] PM EDT documented as of this encounter Progress Notes * Madisyn Ryder LPN - 04/21/2025 9:30 AM EDT * Arline Marcos, TERMITE EXTERMINATOR - 04/21/2025 9:30 AM EDT Reason for Appointment: Patient ID: Elbert Pena is a 35 y.o. female who presents for Routine Visit Patient presents today for Return OB appointment. MEDICATIONS Current Outpatient Medications Medication Instructions Doxylamine Succinate, Sleep, (UNISOM PO) FIBER GUMMIES PO ondansetron (ZOFRAN) 8 mg, Oral, As needed Vit-Fe Fumarate-FA ( VITAMIN AND MINERAL PO) pyridoxine (Vitamin B-6) 25 MG tablet ALLERGIES No Known Allergies PROBLEMS Active Ambulatory Problems Diagnosis Date Noted PCOS (polycystic ovarian syndrome) 02/24/2025 Positive urine test ([facility]) 02/24/2025 Resolved Ambulatory Problems Diagnosis Date Noted No Resolved Ambulatory Problems Past Medical History: Diagnosis Date Eczema HISTORY PAST MEDICAL HISTORY SOCIAL HISTORY Past Medical History: Diagnosis Date Eczema Social History Tobacco Use Smoking status: Not on file Smokeless tobacco: Not on file Substance Use Topics Alcohol use: Not on file Drug use: Not on file FAMILY HISTORY Family History Problem Relation Name Age of Onset Other (high blood pressure) Mother SURGICAL HISTORY Past Surgical History: Procedure Laterality Date LASIK REVIEW OF SYSTEMS Review of Systems: Review [...] nursing note reviewed. Exam conducted with a cloth grader supervisor present. Vitals: There is no height or weight on file to calculate BMI. BP: Patient's last menstrual period was 01/25/2025. ASSESSMENT & PLAN ICD-10-CM 1. First trimester ([facility]) Z34.91 2. 13 weeks gestation of ([facility]) Z3A.13 New OB: Patient presents today for 1st time obstetrics appointment with provider. Patient is currently 12w2d . Patients history has been reviewed in great detail including any potential risks. Patient stated she currently has no complaints. Expectations throughout regarding labs, ultrasounds, and appointments have been discussed with the patient in detail. It was reiterated that the patient is to drink 6-8 glasses of water a day, eat 6 small meals a day, do not consume raw or undercooked meat, and stay away from [facility]. Patient has been consulted regarding any further do's and don'tsof . Patient voiced understanding and all questions and concerns were answered. No orders of the defined types were placed in this encounter. Follow Up: Patient is to return in 4 weeks for routine OB appointment. Documented by Arline Marcos LPN on behalf of: Pee Del Rio DO documented in this encounter Plan of Treatment Upcoming Encounters Date Type Department Care Team (Late st Contact Info) Description 05/12/2025 9:50 AM EDT Routine [facility] [address] [place] [phone] Pee Del Rio DO [address] [place] [address] documented as of this encounter Visit Diagnoses Diagnosis First trimester ([facility]) state, incidental 13 weeks gestation of ([facility]) documented in this encounter
--- OUTSIDE RECORDS SUMMARY | 2025-05-05 13:26 | XMS_ITS | Encounter Summary ---
Author Organization [facility] Address [address] [place] [address] Care Team Providers Care Industrial Hygienist Name Role Phone Unavailable Primary Care Provider Unavailabl e Encounter Details Date Type Department Care Team (Late st Contact Info) Description 11/12/2024 Abstract [facility] [address] [facility] [place] [phone] Pee Del Rio DO [address] [place], [facility]11 Social History Tobacco Use Types Packs/Day Years [...] Info) Description 05/12/2025 9:50 AM EDT Routine [facility] [address] [place] [phone] Pee Del Rio DO [address] [place], [facility] documented as of this encounter Visit Diagnoses Not on filedocumented in this encounter
--- OUTSIDE RECORDS SUMMARY | 2025-05-05 13:26 | XMS_ITS | Clinical Summary ---
Author Organization [facility] Address [address] [place] [address] Care Team Providers Care Door Core Assembler Name Role Phone Unavailable Primary Care Provider Unavailabl e Allergies No known active allergies Medications ondansetron (Zofran) 4 MG tabletIndicatio ns:Nausea Take 2 tablets (8 mg) by mouth if needed for nausea or vomiting 20 tablet 2 03/27/2025 Active Doxylamine Succinate, Sleep, (UNISOM PO) 03/09/2025 Active FIBER GUMMIES PO 04/06/2025 Active Vit-Fe Fumarate-FA ( VITAMIN AND MINERAL PO) 04/06/2025 Active pyridoxine (Vitamin B-6) 25 MG tablet 03/09/2025 Active Active Problems Problem Noted Date Diagnosed Date PCOS (polycystic ovarian syndrome) 02/24/2025 Positive urine test ([facility]) 02/25/20 25 Estimated Date of Delivery Comme nts Yes 11/01/2025 Based on last me nstrual period of 01/25/2025 Encounters Date Type Department Care Team Description 04/21/2025 9:30 AM EDT Routine [facility] [place] [phone] Pee Del Rio DO First trimester ([facility]); 13 weeks gestation of ([facility]) 04/21/2025 [place] [address] Pee Del Rio DO 04/20/2025 Telephone [facility] [address] [place] [address] Sandy De León MA 04/14/2025 Travel 04/07/2025 9:30 AM EDT Ancillary Procedure [facility] [address] [facility] [place] [address] , unspecified gestational age ([facility]); Encounter for supervision of normal first in first trimester ([facility]) 04/06/2025 Telephone [facility] [address] [place] [address] Sheri Smith MA 04/01/2025 Travel 03/27/2025 10:00 AM EDT Initial [facility] [address] [place] [address] [place]: 8w5d 03/27/2025 9:30 AM EDT Ancillary Procedure [facility] [address] [place] [address] Missed menses 03/20/2025 Travel 03/03/2025 Travel 02/27/2025 Clinisync Result Encounter NOMS External Department Unsolicited Pee Del Rio DO 02/25/2025 Clinisync Result Encounter NOMS External Department Unsolicited Pee Del Rio DO 02/24/2025 Telephone [facility] [address] [facility] [place] [address] Emi Ventura LPN 02/14/2025 Clinisync Result Encounter NOMS External Department Unsolicited Pee Del Rio DO from Last 3 Months Family History Medical [...] AM EDT Routine [facility] [address] [place] [address] Pee Del Rio DO [address] [place] [address] Health Maintenance Due Date Last Done Comments Influenza Vaccine (#1) 2025 3, 07/10/2022, 09/08/2021, Additional history exists Cervical Cancer Screening 04/22/2029 HPV/Cotest 04/22/2029 Pap Smear 04/22/2029 04/22/2024 Procedures Procedure Name Priority Date/Time Associated Diagnosis Comments OB TRANSVAGINAL Routine 04/07/2025 9: 55 AM EDT , unspecified gestational age ([facility]) Encounter for supervision of normal first in first trimester [facility] POCT URINALYSIS DIPSTICK Routine 03/27/2025 10:07 AM [...] MD, PHD at 08-Apr-2025 10:16:34 AM [facility] Procedure Note Wanda Vargas MD - [...] signed by WANDA VARGAS II, MD, PHD [id number] 10:16:34 AM [facility] DO IMG OB US PROCEDURES Final Resul t * (ABNORMAL) POCT , urine manually resulted (03/27/2025 10:07 AM EDT) Preg Test, Ur Positive Negative Urine 03/27/2025 10:0 7 AM EDT [facility] POINT OF CARE TEST ENTER/EDIT OR DERABLES [...] Positive Urine 03/27/2025 10:0 7 AM EDT Result [facility] POINT OF CARE TEST ENTER/EDIT OR DERABLES [...] us Pee Eliane DO [facility] Final [facility] * ALL PROGESTERONE (02/14/2025 9:24 AM EDT) PROGESTERONE 17.3 . ng/mL [facility] Comment: Follicular phase 0.1 - 0.9 Luteal phase 1.8 - 23.9 Ovulation phase 0.1 - 12.0 First trimester 11.0 - 44.3 Second trimester 25.4 - 83.3 Third trimester 58.7 - 214.0 Postmenopausal 0.0 - 0.1 Performed at: [address] [id number] Feather Edger: Evan Valenzuela PhD, Phone: [phone] 02/14/2025 9:24 AM EDT 02/14/2025 9:28 AM EDT Narrative [facility] - 02/15/2025 8:08 AM EDT us Pee Eliane DO [facility] Final Result [facility] * Pap Smear (04/22/2024 12:00 AM EDT) Swab Cervical swab / Unknown Diane [facility] CYTOLOGY ORDERABLES Final Re sult EXTERNAL LAB from Last 3 Months or Most Recently Relevant to Health Maintenance Insurance [employer]
--- OUTSIDE RECORDS SUMMARY | 2025-05-05 13:26 | XMS_ITS | Encounter Summary ---
Author Organization [facility] Address [address] [place] [address] Care Team Providers Care Mechanical Product Engineer Name Role Phone Unavailable Primary Care Provider Unavailabl e Encounter Details Date Type Department Care Team (Late st Contact Info) Description 12/03/2024 Abstract [facility] [address] [place] [address] Emi Ventura LPN Social History Tobacco [...] Info) Description 05/12/2025 9:50 AM EDT Routine [facility] [address] [place] [phone] Pee Del Rio DO [address] [place], [place] [phone] documented as of this encounter Visit Diagnoses Not on filedocumented in this encounter
--- OUTSIDE RECORDS SUMMARY | 2025-05-05 13:26 | XMS_ITS | Encounter Summary ---
Author Organization [facility] Address [address] [place] [address] Care Team Providers Care Fire Control System Installer Name Role Phone Unavailable Primary Care Provider Unavailabl e Encounter Details Date Type Department Care Team (Late st Contact Info) Description 11/06/2024 Abstract [facility] [address] [facility] [place] [phone] Pee Del Rio DO [address] [place], [facility]11 Social History Tobacco Use Types Packs/Day [...] EDT Routine [facility] [address] [place] [phone] Pee Del Rio DO [address] [place], [facility]11 documented as of this encounter Visit Diagnoses Not on filedocumented in this encounter
--- OUTSIDE RECORDS SUMMARY | 2025-05-05 13:26 | XMS_ITS | Encounter Summary ---
Author Organization [facility] Address [address] [place] [address] Care Team Providers Care Wagon Driver Name Role Phone Unavailable Primary Care Provider Unavailabl e Encounter Details Date Type Department Care Team (Late st Contact Info) Description 11/07/2024 Abstract [facility] [address] [facility] [place] [phone] Pee Del Rio DO [address] [place], [facility]11 Social History Tobacco Use Types Packs/Day [...] EDT Routine [facility] [address] [place] [phone] Pee Del Rio DO [address] [place], [facility]11 documented as of this encounter Visit Diagnoses Not on filedocumented in this encounter
--- OUTSIDE RECORDS SUMMARY | 2025-05-05 13:26 | XMS_ITS | Encounter Summary ---
Author Organization [facility] Address [address] [place] [address] Care Team Providers Care Leading Firefighter Name Role Phone Unavailable Primary Care Provider Unavailabl e Encounter Details Date Type Department Care Team (Late st Contact Info) Description 04/21/2025 Bamboo flowsheet [facility] [address] [place] [address] Pee Del Rio DO [facility] [address] [place], [place] [address] Social History Tobacco Use Types Packs/Day Years [...] EDT Routine [facility] [address] [place] [address] Pee Del Rio DO [address] [place], [facility]11 documented as of this encounter Visit Diagnoses Not on filedocumented in this encounter
--- OUTSIDE RECORDS SUMMARY | 2025-05-05 13:26 | XMS_ITS | Encounter Summary ---
Author Organization [facility] Address [address] [place] [address] Care Team Providers Care Head Shipper Name Role Phone Unavailable Primary Care Provider Unavailabl e Encounter Details Date Type Department Care Team (Late st Contact Info) Description 11/07/2024 Abstract [facility] [address] [facility] [place] [phone] Pee Del Rio DO [address] [place], [facility]11 Social History Tobacco Use Types Packs/Day [...] EDT Routine [facility] [address] [place] [phone] Pee Del Rio DO [address] [place], [facility]11 documented as of this encounter Visit Diagnoses Not on filedocumented in this encounter
--- OUTSIDE RECORDS SUMMARY | 2025-05-05 13:26 | XMS_ITS | Encounter Summary ---
Author Organization [facility] Address [address] [place] [address] Care Team Providers Care Superintendent Transportation Name Role Phone Unavailable Primary Care Provider Unavailabl e Encounter Details Date Type Department Care Team (Late st Contact Info) Description 11/11/2024 Abstract [facility] [address] [facility] [place] [phone] Pee Del Rio DO [address] [place], [facility]11 Social History Tobacco Use Types Packs/Day [...] EDT Routine [facility] [address] [place] [phone] Pee Del Rio DO [address] [place], [facility]11 documented as of this encounter Visit Diagnoses Not on filedocumented in this encounter
--- OUTSIDE RECORDS SUMMARY | 2025-05-05 13:26 | XMS_ITS | Encounter Summary ---
Author Organization [facility] Address [address] [place] [address] Care Team Providers Care Dean Of Students Name Role Phone Unavailable Primary Care Provider Unavailabl e Encounter Details Date Type Department Care Team (Late st Contact Info) Description 12/17/2024 Abstract [facility] [address] [place] [address] Emi Ventura LPN Social History Tobacco [...] EDT Routine [facility] [address] [place] [phone] Pee Del Rio DO [address] [place], [place] [address] documented as of this encounter Visit Diagnoses Not on filedocumented in this encounter
--- OUTSIDE RECORDS SUMMARY | 2025-05-05 13:26 | XMS_ITS | Encounter Summary ---
Author Organization [facility] Address [address] [place] [address] Care Team Providers Care Senior Php Web Developer Name Role Phone Unavailable Primary Care Provider Unavailabl e Reason for Visit * Reason Onset Date Comments Med Refill 12/02/2024 Encounter Details Date Type Department Care Team (Late st Contact Info) Description 12/02/2024 Telephone [facility] [address] [place] [address] Pee Del Rio DO [address] [place] [address] Med Refill Social History Tobacco Use Types [...] 05/12/2025 9:50 AM EDT Routine [facility] [address] [place] [address] Pee Del Rio DO [address] [place] [address] documented as of this encounter Visit Diagnoses Not on filedocumented in this encounter
[2025-05-05 14:55] LABS: Cannabinoid Screen Urine NEGATIVE (NEGATIVE); Methamphetamines Screen Urine NEGATIVE (NEGATIVE); Tricyclic Antidepressant Urine NEGATIVE (NEGATIVE)
[2025-05-05 14:56] LABS: Hematocrit 39.0 % (36.0-48.0); Hemoglobin 13.2 g/dL (12.0-16.0); Immature Granulocytes Abs Auto 0.03 10^3/uL (0.00-0.03); Immature Granulocytes Pct Auto 0.3 % (0.0-0.5); Lymphocytes Absolute Auto 2.1 10^3/uL (1.2-3.8); Mean Corpuscular HGB Conc 33.8 g/dL (29.9-35.2); Mean Corpuscular Hemoglobin 26.1 pg (26.7-34.0); Mean Corpuscular Volume 77.1 fL (81.0-99.0); Platelet Count 280 10^3/uL (150-450); Red Blood Count 5.06 10^6/uL (4.20-5.40); White Blood Count 10.6 10^3/uL (4.0-11.0)
[2025-05-06 08:09] LABS: Rubella Antibodies, IgG 1.56 index (Immune >0.99)
[2025-05-06 12:09] LABS: Rapid Plasma Reagin, Quant Non Reactive titer (NonRea<1:1)
== END 2025-05-05 13:25 | disposition home or self-care (01) ==
LOC: LAB 13:24
PROVIDERS: Visit Provider Obstetrics & Gynecology
DX: Z34.01 Encounter for supervision of normal first pregnancy, first trimester (principal); N92.6 Irregular menstruation, unspecified
CPT/HCPCS: 36415; 80307; 83036; 85025; 86592; 86762; 86803; 86850; 86900; 86901; 87086; 87340; 87389

== ENCOUNTER 2025-05-12 14:41 | Outpatient (REF) | payer OTHER, SELFPAY ==
--- OUTSIDE RECORDS SUMMARY | 2025-05-12 09:50 | XMS_ITS | Encounter Summary ---
Author Organization [facility] Address [address] [place] [address] Care Team Providers Care Dust Collector Treater Name Role Phone Unavailable Primary Care Provider Unavailabl e Reason for Visit * Reason Comments Routine Visit Encounter Details Date Type Department Care Team (Latest Contact Info) Description 05/12/2025 9:50 AM EDT Routine [facility] [address] [place] [address] Pee Del Rio DO [address] [place] [address] Screening, , for anatomic survey ([facility]); Well woman exam with routine gynecological exam; Second trimester ([facility]); 15 weeks gestation of ([facility]); STD exposure; Nausea Social History Tobacco Use Types Packs/Day Years [...] PM EDT documented as of this encounter Last Filed Vital Signs Vital Sign Reading Time Taken Comments Blood Pressure 138/82 05/12/2025 10:11 AM EDT Pulse - - Temperature - - Respiratory Rate - - Oxygen Saturation - - Inhaled Oxygen Concentration - - Weight 99.8 kg (220 lb) 05/12/2025 10:11 AM EDT Height - - Body Mass Index - - documented in this encounter Progress Notes * Arline LEANNE Marcos - 05/12/2025 9:50 AM EDT Reason for Appointment: Patient ID: Elbert Pena is a 35 y.o. female who presents for Routine Visit Patient presents today for Return OB appointment. MEDICATIONS Current Outpatient Medications Medication Instructions Doxylamine Succinate, Sleep, (UNISOM PO) FIBER GUMMIES PO ondansetron (ZOFRAN) 8 mg, Oral, As needed Vit-Fe Fumarate-FA ( VITAMIN AND MINERAL PO) promethazine (PHENERGAN) 12.5 mg, Oral, Every 4 hours pyridoxine (Vitamin B-6) 25 MG tablet ALLERGIES No Known Allergies PROBLEMS Active Ambulatory Problems Diagnosis Date Noted PCOS (polycystic ovarian syndrome) 02/24/2025 Positive urine test ([facility]) 02/24/2025 Resolved Ambulatory Problems Diagnosis Date Noted [...] Eyes: Negative. Respiratory: Negative. Cardiovascular: Negative. Gastrointestinal: Positive for nausea and vomiting. Genitourinary: Negative. Musculoskeletal: Negative. Skin: Negative. Neurological: Negative. All other systems reviewed and are negative. Hematological: Negative. Endocrine: Negative. Allergic/Immunologic: Negative. OBJECTIVE Objective: Physical Exam Constitutional: Appearance: Normal appearance. She is well-developed. Genitourinary: Vulva normal. Breasts: Breasts are soft. Right: Normal. Left: Normal. Cardiovascular: Rate and Rhythm: Normal rate and [...] nursing note reviewed. Exam conducted with a alteration worker present. Vitals: There is no height or weight on file to calculate BMI. BP: 138/82 Patient's last menstrual period was 01/25/2025. ASSESSMENT & PLAN ICD-10-CM 1. Screening, , for anatomic survey ([facility]) Z36.89 US OB 14+ weeks anatomy scan US OB 14+ weeks anatomy scan 2. Well woman exam with routine gynecological exam Z01.419 Pap Smear HPV DNA probe, amplified 3. Second trimester ([facility]) Z34.92 POCT urinalysis dipstick manually resulted 4. 15 weeks gestation of ([facility]) Z3A.15 Alpha fetoprotein, maternal Alpha fetoprotein, maternal 5. STD exposure Z20.2 SURESWAB(R) ADVANCED VAGINITIS PLUS, TMA CHLAMYDIA TRACHOMATIS (GENITO/STI) Neisseria gonorrhea DNA probe, direct 6. Nausea R11.0 promethazine (Phenergan) 12.5 MG tablet Return OB/Annual Exam: Patient presents today for a annual exam/routine obstetrics appointment. Patient is currently [id number]. Patient states she is doing well but has complaints of nausea in the morning. Pap and cultures was obtained without difficulty and patient was given orders for anatomy scan and msAFP to be obtained. Pt still having complaints of nausea and vomiting, rx for phenergan faxed to pharmacy. Pt to take phenergan and zofran. [facility] to be [facility] to [facility] for vanishing twin and AMA Orders Placed This Encounter Procedures HPV DNA probe, amplified US OB 14+ weeks anatomy scan CHLAMYDIA TRACHOMATIS (GENITO/STI) Neisseria gonorrhea DNA probe, direct Alpha fetoprotein, maternal POCT urinalysis dipstick manually resulted Follow Up: Patient is to schedule annual exam for next year and return to office in 4 weeks for OB appointment. Documented by Arline Marcos LPN on behalf of: Pee Del Rio DO documented in this encounter Plan of Treatment Upcoming Encounters Date Type Department Care Team (Late st Contact Info) Description 06/09/2025 9:00 AM EDT Routine [facility] [address] [place] [address] Pee Del Rio DO [address] [place] [address] Scheduled Orders Name Type Priority Associated Diagnoses Orde r Schedule SURESWAB(R) ADVANCED VAGINITIS PLUS, TMA Pathology and Cytology Routine STD exposure Ordered: 05/12/2025 CHLAMYDIA TRACHOMATIS (GENITO/STI) Lab Routine STD exposure Ordered: 05/12/2025 Neisseria gonorrhea DNA probe, direct Lab Routine STD exposure Ordered: 05/12/2025 US OB 14+ weeks anatomy scan Imaging Routine Screening, , for anatomic survey ([facility]) Expected: 05/12/2025, Expires: 08/12/2025 Pap Smear Pathology and Cytology Routine Well woman exam with routine gynecological exam Ordered: 05/12/2025 HPV DNA probe, amplified Microbiology Routine Well woman exam with routine gynecological exam Ordered: 05/12/2025 Alpha fetoprotein, maternal Lab Routine 15 weeks gestation of ([facility]) Expected: 05/12/2025 (Approximate), Expires: 07/12/2025 documented as of this encounter Procedures Procedure Name Priority Date/Time Associated Diagnosis Comments POCT URINALYSIS DIPSTICK Routine 05/12/2025 10:29 AM EDT Second trimester ([facility]) documented in this encounter Results * (ABNORMAL) POCT urinalysis dipstick manually resulted (05/12/2025 10:29 AM EDT) Color, UA Yellow Clarity, UA Clear Glucose, UA Negative Negative - 2000(110) ++++ mg/dL Bilirubin, UA Negative Negative - 4(70) +++ mg/dL Ketones, UA Negative Negative - 160(16) ++++ mg/dL Spec Grav, UA 1.015 1 - 1.03 Blood, UA Negative Negative - 50 Jerry/mcL pH, UA 1.0 5 - 9 Protein, UA Negative Negative - 2000(20) ++++ mg/dL Urobilinogen, UA 0.2 0.2 - 12 mg/dL Leukocytes, UA Negative Negative - 500+++ Roberta/mcL Nitrite, UA Negative Negative - Positive Urine 05/12/2025 10:2 9 AM EDT Pee Del Rio DO POINT OF CARE TEST ENTER/EDIT OR DERABLES Final Result documented in this encounter Visit Diagnoses Diagnosis Screening, , for anatomic survey ([facility]) Encounter for anatomic survey Well woman exam with routine gynecological exam Routine gynecological examination Second trimester ([facility]) state, incidental 15 weeks gestation of ([facility]) STD exposure Nausea Nausea alone documented in this encounter
--- OUTSIDE RECORDS SUMMARY | 2025-05-12 14:44 | XMS_ITS | Encounter Summary ---
Author Organization [facility] Address [address] [place] [address] Care Team Providers Care Blower And Compressor Assembler Name Role Phone Unavailable Primary Care Provider Unavailabl e Encounter Details Date Type Department Care Team (Late st Contact Info) Description 12/17/2024 Abstract [facility] [address] [place] [address] Emi Ventura LPN Social History Tobacco [...] Info) Description 06/09/2025 9:00 AM EDT Routine [facility]VIN GRIFF[facility] [address] [place] [phone] Pee Del Rio DO [address] [place], [place] [id number] documented as of this encounter Visit Diagnoses Not on filedocumented in this encounter
--- OUTSIDE RECORDS SUMMARY | 2025-05-12 14:44 | XMS_ITS | Encounter Summary ---
Author Organization [facility] Address [address] [place] [address] Care Team Providers Care Doorshaker Name Role Phone Unavailable Primary Care Provider Unavailabl e Encounter Details Date Type Department Care Team (Late st Contact Info) Description 12/03/2024 Abstract [facility] [address] [place] [address] Emi Ventura LPN Social History Tobacco [...] EDT Routine [facility]IN GRIFF[facility]S [address] [place] [phone] Pee Del Rio DO [address] [place], [place] [phone] documented as of this encounter Visit Diagnoses Not on filedocumented in this encounter
--- OUTSIDE RECORDS SUMMARY | 2025-05-12 14:44 | XMS_ITS | Encounter Summary ---
Author Organization [facility] Address [address] [place] [address] Care Team Providers Care Coal Tower Operator Name Role Phone Unavailable Primary Care Provider Unavailabl e Encounter Details Date Type Department Care Team (Late st Contact Info) Description 11/12/2024 Abstract [facility] [address] [facility] [place] [phone] Pee Del Rio DO [address] [place], [facility] Social History Tobacco Use Types Packs/Day Years [...] EDT Routine ER[facility]IN GRIFFITHS [address] [place] [phone] Pee Del Rio DO [address], [facility] documented as of this encounter Visit Diagnoses Not on filedocumented in this encounter
--- OUTSIDE RECORDS SUMMARY | 2025-05-12 14:44 | XMS_ITS | Encounter Summary ---
Author Organization [facility] Address [address] [place] [address] Care Team Providers Care Trolley Car Overhauler Name Role Phone Unavailable Primary Care Provider Unavailabl e Encounter Details Date Type Department Care Team (Late st Contact Info) Description 11/11/2024 Abstract [facility] [address] [place] [phone] Pee Del Rio DO [address], [facility] Social History Tobacco Use Types Packs/Day Years [...] Routine ERVIN GRIFFITHS [address] [place] [phone] Pee Del Rio DO [address], [facility] documented as of this encounter Visit Diagnoses Not on filedocumented in this encounter
--- OUTSIDE RECORDS SUMMARY | 2025-05-12 14:44 | XMS_ITS | Encounter Summary ---
Author Organization [facility] Address [address] [place] [address] Care Team Providers Care Administrative Asst Name Role Phone Unavailable Primary Care Provider Unavailabl e Reason for Visit * Reason Onset Date Comments Med Refill 12/02/2024 Encounter Details Date Type Department Care Team (Late st Contact Info) Description 12/02/2024 Telephone [facility] [address] [place] [address] Pee Del Rio DO [address] [place] [address] Med Refill Social History Tobacco Use Types [...] 06/09/2025 9:00 AM EDT Routine [facility] [address] [place] [address] Pee Del Rio DO [address] [place] [address] documented as of this encounter Visit Diagnoses Not on filedocumented in this encounter
--- OUTSIDE RECORDS SUMMARY | 2025-05-12 14:44 | XMS_ITS | Clinical Summary ---
Author Organization [facility] Address [address] [place] [address] Care Team Providers Care Candle Maker Name Role Phone Unavailable Primary Care Provider [...] (Vitamin B-6) 25 MG tablet 03/09/2025 Active promethazine (Phenergan) 12.5 MG tabletIndicatio ns:Nausea Take 1 tablet (12.5 mg) by mouth every 4 (four) hours 180 tablet 1 05/12/2025 08/10/20 25 Active Active Problems Problem Noted Date Diagnosed Date PCOS (polycystic ovarian syndrome) 02/24/2025 Positive urine test ([facility]) 02/25/20 25 Estimated Date of Delivery Comme nts Yes 11/01/2025 Based on last me nstrual period of 01/25/2025 Encounters Date Type Department Care Team Description 05/12/2025 9:50 AM EDT Routine [facility] [address] [place] [phone] Pee Del Rio DO Screening, , for anatomic survey ([facility]); Well woman exam with routine gynecological exam; Second trimester ([facility]); 15 weeks gestation of ([facility]); STD exposure; Nausea 05/12/2025 [place] [address] Arline Marcos LPN 05/12/2025 Abstract [facility] [address] [place] [address] Pee Del Rio, 05/12/2025 Bamboo flowsheet [facility] [address] [place] [address] Pee Del Rio, 05/11/2025 Travel 05/05/2025 Clinisync Result Encounter NOMS External Department Unsolicited Pee Del Rio, 04/21/2025 9:30 AM EDT Routine [facility] [address] [place] [address] Pee Del Rio DO First trimester ([facility]); 13 weeks gestation of ([facility]) 04/21/2025 Bamboo flowsheet [facility] [address] [place] [address] Pee Del Rio, 04/20/2025 Telephone [facility]FF[facility] [address] [place] [address] Sandy De León MA 04/14/2025 Travel 04/07/2025 9:30 AM EDT [place]illary [place] [address] , unspecified gestational age ([facility]); Encounter for supervision of normal first in first trimester ([facility]) 04/06/20[place] [address] Sheri Smith MA 04/01/2025 Travel 03/27/2025 10:00 AM EDT Initial [facility]FF[facility] [address] [place] [address] GA: [id number] 03/27/2025 9:30 AM EDT Ancillary Procedure [facility]FF[facility] [address] [place] [address] Missed menses 03/20/2025 Travel 03/03/2025 Travel 02/27/2025 Clinisync Result Encounter NOMS External Department Unsolicited Pee Del Rio, DO 02/25/2025 Clinisync Result Encounter NOMS External Department Unsolicited Pee Del Rio, DO 02/24/2025 Telephone [facility] [address] [place] [address] Emi Ventura LPN 02/14/2025 Clinisync Result Encounter NOMS External Department Unsolicited Pee Del Rio, DO from Last 3 Months Family History [...] Orientation Straight 01/29/2024 3: 29 PM EDT Last Filed Vital Signs Vital [...] AM EDT Routine [facility] [address] [place] [address] Pee Del Rio DO [address] [place] [address] Health Maintenance Due Date Last Done Comments Influenza Vaccine (#1) 2025 3, 07/10/2022, 09/08/2021, Additional history exists Cervical Cancer Screening 04/22/2029 HPV/Cotest 04/22/2029 Pap Smear 04/22/2029 04/22/2024 Procedures Procedure Name Priority Date/Time Associated Diagnosis Comments POCT URINALYSIS DIPSTICK Routine 05/12/2025 10:29 AM EDT Second trimester ([facility]) HBSAG SCREEN Routine 05/05/2025 1:40 PM EDT RAPID PLASMA REAGIN, QUANT Routine 05/05/2025 1:40 PM EDT HCV ANTIBODY RFX TO QUANT PCR Routine 05/05/2025 1:40 PM EDT ALL RUBELLA IGG AB Routine 05/05/2025 1: 40 PM EDT HIV AB/P24 AG WITH REFLEX Routine 05/05/2025 1:40 PM EDT MLR HEMOGLOBIN A1C Routine 05/05/2025 1: 40 PM EDT ALL TYPE AND SCREEN Routine 05/05/2025 1 :40 PM EDT ALL CBC WITH AUTO DIFF Routine 05/05/2025 1:40 PM EDT BOX TEST Routine 05/05/2025 1:40 PM EDT TBH DRUG SCREEN RAPID (URINE) Routine 05/05/2025 1:25 PM EDT OB TRANSVAGINAL Routine 04/07/2025 9: 55 AM EDT , unspecified gestational age ([facility]) Encounter for supervision of normal first in first trimester ([facility]) POCT URINALYSIS DIPSTICK Routine 03/27/2025 10:07 AM [...] Recently Relevant to Health Maintenance Results * (ABNORMAL) POCT urinalysis dipstick manually resulted (05/12/2025 10:29 AM EDT) Only the most recent of2 resultswithin the time period is included. Color, UA Yellow Clarity, UA Clear Glucose, UA Negative Negative - 1999(110) ++++ mg/dL Bilirubin, UA Negative Negative - (70) +++ mg/dL Ketones, UA Negative Negative - 160(16) ++++ mg/dL Spec Grav, UA 1.015 1 - 1.03 Blood, UA Negative Negative - 50 Jerry/mcL pH, UA 1.0 5 - 9 Protein, UA Negative Negative - 1999(20) ++++ mg/dL Urobilinogen, UA 0.2 0.2 - 12 mg/dL Leukocytes, UA Negative Negative - 500+++ Roberta/mcL Nitrite, UA Negative Negative - Positive Urine 05/12/2025 10:2 9 AM EDT Pee Eliane DO POINT OF CARE TEST ENTER/EDIT OR DERABLES Final Result * BOX TEST (05/05/2025 1:40 PM EDT) Pathologist [facility] BOX TEST SENT OUT YES [facility] BOX1 [facility] B[address] 05/05/25 [facility] 05/05/2025 1:40 PM EDT 05/05/2025 1:50 PM EDT Narrative CLINISYMN - 05/05/2025 1:53 PM EDT Pee Eliane DO LAB BLOOD ORDERABLES Final Resul t Performing Organization Address [facility] Co de Phone Number [facility] * HBSAG SCREEN (05/05/2025 1:40 PM EDT) Pathologist [facility] HBSAG SCREEN Negative Negative [facility] Comment: Performed at: [facility] [id number] Tow Truck Driver: Evan Valenzuela PhD, Phone: [phone] 05/05/2025 1:40 PM EDT 05/05/2025 1:50 PM EDT Narrative [facility] - 05/06/2025 12:09 PM EDT Pee Eliane DO LAB BLOOD ORDERABLES Final Resul t Performing Organization Address City/[facility] Co de Phone Number [facility] * RAPID PLASMA REAGIN, QUANT (05/05/2025 1:40 PM EDT) [facility] RAPID PLASMA REAGIN, QUANT Non Reactive NonRea<1: 1 titer [facility] Comment: Please Note: This test does not meet current guidelines for screening and diagnosis of syphilis. This test is intended for following treatment response in patients being treated for syphilis infection. To screen for syphilis infection, a reflex cascade that includes both RPR and a treponema-specific assay should be utilized, such as Treponema pallidum (Syphilis) Screening [place] (586872) or Rapid Plasma Reagin (RPR) Test With Reflex to Quantitative RPR and Confirmatory Treponema pallidum Antibodies ([id number]). Performed at: [address] [id number] Tow Truck Driver: Evan Valenzuela PhD, Phone: [phone] 05/05/2025 1:40 PM EDT 05/05/2025 1:50 PM EDT Narrative [facility] - 05/06/2025 12:09 PM EDT Pee Eliane DO LAB BLOOD ORDERABLES Final Resul t Performing Organization Address [facility] Co de Phone Number [facility] * HIV AB/P24 AG WITH REFLEX (05/05/2025 1:40 PM EDT) HIV AB/P24 AG SCREEN Non Reactive Non Reactive TB Comment: HIV-1/HIV-2 antibodies and HIV-1 p24 antigen were NOT detected. There is no laboratory evidence of HIV infection. HIV Negative Performed at: [address] [id number] Tow Truck Driver: Evan Valenzuela PhD, Phone: [phone] 05/05/2025 1:40 PM EDT 05/05/2025 1:50 PM EDT Narrative [facility] - 05/06/2025 5:07 AM EDT [employer] DO LAB BLOOD ORDERABLES Final Resul t Performing Organization Address [facility] Co de Phone Number [facility] * HCV ANTIBODY RFX TO QUANT PCR (05/05/2025 1:40 PM EDT) HCV AB Non Reactive Non Reactive TB INTERPRETATION: Comment . TB Comment: Not infected with HCV unless early or acute infection is suspected (which may be delayed in an immunocompromised individual), or other evidence exists to indicate HCV infection. Performed at: [address] [id number] Tow Truck Driver: Evan Valenzuela PhD, Phone: [phone] 05/05/2025 1:40 PM EDT 05/05/2025 1:50 PM EDT Narrative CLINISYNC - 05/06/2025 8:09 AM EDT [facility] BLOOD ORDERABLES Final Resul t Performing Organization Address [facility]/ZIP Co de Phone Number [facility] * MLR HEMOGLOBIN A1C (05/05/2025 1:40 PM EDT) [facility] GLYCOHEMOGLOBIN A1C 5.2 4.5 - 6.2 % [facility] Comment: ADA RECOMMENDED LIMIT 4.0 - 6.0 ADA THERAPEUTIC TARGET < 7.0 ACTION SUGGESTED > 7.0 ESTIMATED AVERAGE GLUCOSE 103 mg/dL TB 05/05/2025 1:40 PM EDT 05/05/2025 1:50 PM EDT Narrative CLINISYNC - 05/05/2025 7:28 PM EDT [facility] CLINISYNC Final Result Performing Organization Address [facility] Co de Phone Number [facility] * ALL TYPE AND SCREEN (05/05/2025 1:40 PM EDT) [facility] BLOOD TYPE O Positive [facility]H ANTIBODY SCREEN NEGATIVE TB 05/05/2025 1:40 PM EDT 05/05/2025 1:50 PM EDT Narrative CLINISYMN - 05/05/2025 6:24 PM EDT [facility] CLINISYNC Final Result Performing Organization Address City/[facility] de Phone Number [facility] * ALL RUBELLA IGG AB (05/05/2025 1:40 PM EDT) [facility] RUBELLA ANTIBODIES, IGG 1.56 Immune >0.99 index [facility]H Comment: Non-immune <0.90 Equivocal 0.90 - 0.99 Immune >0.99 Performed at: [address] [id number] Tow Truck Driver: Evan Valenzuela PhD, Phone: [phone] 05/05/2025 1:40 PM EDT 05/05/2025 1:50 PM EDT Narrative JAYSHREE - 05/06/2025 8:09 AM EDT us Pee Eliane DO CLINISYNC Final Result [facility] * (ABNORMAL) ALL CBC WITH AUTO DIFF (05/05/2025 1:40 PM EDT) [facility] WBC 10.6 4.0 - 11.0 10 3/uL TBH TBH RBC 5.06 4.20 - 5.40 10 6/uL TBH TBH HGB 13.2 12.0 - 16.0 g/dL TBH TBH HCT 39.0 36.0 - 48.0 % TBH TBH MCV 77.1(L) 81.0 - 99.0 fL TBH TBH MCH 26.1(L) 26.7 - 34.0 pg TBH TBH MCHC 33.8 29.9 - 35.2 g/dL TBH TBH RDW 15.3(H) 11.0 - 15.0 % TBH TBH PLT 280 150 - 450 10 3/uL TBH TBH MPV 9.2(L) 9.5 - 13.5 fL TBH NEUTROPHILS PERCENT AUTO 74.7 43.0 - 75.0 % TBH LYMPHOCYTES PERCENT AUTO 19.9(L) 20.5 - 60.0 % TBH MONOCYTES PERCENT AUTO 4.7 1.7 - 12.0 % TBH TBH EO % 0.2(L) 0.9 - 7.0 % TBH BASOPHILS PERCENT AUTO 0.2 0.2 - 2.0 % TBH IMMATURE GRANULOCYTES PCT AUTO 0.3 0.0 - 0.5 % TBH NEUTROPHILS ABSOLUTE AUTO 7.9(H) 1.4 - 6.5 10 3/uL TBH LYMPHOCYTES ABSOLUTE AUTO 2.1 1.2 - 3.8 10 3/uL TBH MONOCYTES ABSOLUTE AUTO 0.5 0.3 - 0.8 10 3/uL TBH TBH EO # 0.0 0.0 - 0.7 10 3/uL TBH BASOPHILS ABSOLUTE AUTO 0.0 0.0 - 0.1 10 3/uL TBH IMMATURE GRANULOCYTES ABS AUTO 0.03 0.00 - 0.03 10 3/uL TBH 05/05/2025 1:40 PM EDT 05/05/2025 1:50 PM EDT Narrative CLINISYNC - 05/05/2025 2:59 PM EDT Pee Eliane DO CLINISYNC Final [facility] * TB DRUG SCREEN RAPID (URINE) (05/05/2025 1:25 PM EDT) CANNABINOID SCREEN URINE NEGATIVE NEGATIVE TBH PHENCYCLIDINE SCREEN URINE NEGATIVE NEGATIVE TBH COCAINE SCREEN URINE NEGATIVE NEGATIVE TBH METHAMPHETAMINES SCREEN URINE NEGATIVE NEGATIVE TBH OPIATE SCREEN URINE NEGATIVE NEGATIVE TBH AMPHETAMINE SCREEN URINE NEGATIVE NEGATIVE TBH BENZODIAZEPINES SCREEN URINE NEGATIVE NEGATIVE TBH TRICYCLIC ANTIDEPRESSANT URINE NEGATIVE NEGATIVE TBH METHADONE SCREEN URINE NEGATIVE NEGATIVE TBH BARBITURATES SCREEN URINE NEGATIVE NEGATIVE TBH OXYCODONE SCREEN URINE NEGATIVE NEGATIVE TBH BUPRENORPHINE SCREEN URINE NEGATIVE NEGATIVE TBH Comment: DRUG CLASS TEST SYSTEM CUT-OFF CONCENTRATIONS ARE FOLLOWS: AMP (Amphetamine): 500 ng/mL BAR (Barbiturates): 200 ng/mL BZO (Benzodiazepines): 150 ng/mL BUP (Buprenorphine): 10 ng/mL EDEN (Cocaine): 150 ng/mL mAMP (Methamphetamine): 500 ng/mL MTD (Methadone): 200 ng/mL OPI (Opiates): 100 ng/mL OXY (Oxycodone): 100 ng/mL PCP (Phencyclidine): 25 ng/mL THC (Cannabinoids): 50 ng/mL TCA (Trycyclic Antidepressants): 300 ng/mL 05/05/2025 1:25 PM EDT 05/05/2025 1:50 PM EDT Narrative CLINISYNC - 05/05/2025 2:55 PM EDT Pee Eliane DO CLINISYNC Final Result CLINISYNC TB[facility] * US OB transvaginal (04/07/2025 9:55 AM [...] II, MD, PHD at 08-Apr-2025 10:16:34 AM [facility] Procedure Note Wanda Vargas MD - [...] signed by WANDA VARGAS II, MD, PHD [id number] 10:16:34 AM [facility] us Pee Eliane DO IMG OB US PROCEDURES Final Resul t * (ABNORMAL) POCT , urine manually resulted (03/27/2025 10:07 AM EDT) Preg Test, Ur Positive Negative Urine 03/27/2025 10:0 7 AM EDT us Pee Eliane DO POINT OF CARE TEST ENTER/EDIT OR DERABLES Final Result * TBH PREG QUANT HCG (02/27/2025 7:21 AM EDT) Only the most recent of2 resultswithin the time period is included. HCG QUANTITATIVE 780 mIU/mL [facility] Comment: 5-50 0.2-1 WEEK 50-500 1-2 WEEKS 100-5,000 2-3 WEEKS 500-10,000 3-4 WEEKS 1,000-50,000 4-5 WEEKS 10,000-100,000 5-6 WEEKS 15,000-200,000 6-8 WEEKS 10,000-100,000 2-3 MONTHS 02/27/2025 7:21 AM EDT 02/27/2025 7:22 AM EDT Narrative CLINISYNC - 02/27/2025 7:57 AM EDT us Pee Eliane DO CLINISYNC Final Result Performing Organization Address [facility] Co de Phone Number [facility] * ALL PROGESTERONE (02/14/2025 9:24 AM EDT) Pathologist [facility] PROGESTERONE 17.3 . ng/mL [facility] Comment: Follicular phase 0.1 - 0.9 Luteal phase 1.8 - 23.9 Ovulation phase 0.1 - 12.0 First trimester 11.0 - 44.3 Second trimester 25.4 - 83.3 Third trimester 58.7 - 214.0 Postmenopausal 0.0 - 0.1 Performed at: [address] [id number] Tow Truck Driver: Evan Valenzuela PhD, Phone: [phone] 02/14/2025 9:24 AM EDT 02/14/2025 9:28 AM EDT Narrative CLINISYNC - 02/15/2025 8:08 AM EDT us Pee Eliane DO CLINISYNC Final Result Performing Organization Address City/[facility]/ZIP Co de Phone Number [facility] * Pap Smear (04/22/2024 12:00 AM EDT) Swab Cervical swab / Unknown us Diane NEW LAB CYTOLOGY ORDERABLES Final Re sult EXTERNAL LAB from Last 3 Months or Most Recently Relevant to Health Maintenance Insurance [employer]
--- OUTSIDE RECORDS SUMMARY | 2025-05-12 14:45 | XMS_ITS | Encounter Summary ---
Author Organization [facility] Address [address] [place] [address] Care Team Providers Care Rib Puller Name Role Phone Unavailable Primary Care Provider Unavailabl e Encounter Details Date Type Department Care Team (Late st Contact Info) Description 05/12/2025 Telephone [facility] [address] [place] [phone] Arline Marcos LPN Social History Tobacco Use Types Packs/Day [...] encounter Miscellaneous Notes * Telephone Encounter - Arline Marocs LPN - 05/12/2025 10:52 AM EDT Please refer to [facility] for AMA and possible vanishing twin. documented in this encounter Plan of Treatment Upcoming Encounters Date Type Department Care Team (Late st Contact Info) Description 06/09/2025 9:00 AM EDT Routine [facility] GRIFF[facility] [address] [place] [address] Pee Del Rio, [address] [place] [address] documented as of this encounter Visit Diagnoses Not on filedocumented in this encounter
--- OUTSIDE RECORDS SUMMARY | 2025-05-12 14:45 | XMS_ITS | Encounter Summary ---
Author Organization [facility] Address [address] [place] [address] Care Team Providers Care Grader Patrol Name Role Phone Unavailable Primary Care Provider Unavailabl e Encounter Details Date Type Department Care Team (Latest Contact Info) Description 05/11/2025 Travel Social History Tobacco Use Types Packs/Day [...] Description 06/09/2025 9:00 AM EDT Routine [facility] [address] [phone] Pee Del Rio DO [address] [place] [address] documented as of this encounter Visit Diagnoses Not on filedocumented in this encounter
--- OUTSIDE RECORDS SUMMARY | 2025-05-12 14:45 | XMS_ITS | Encounter Summary ---
Author Organization [facility] Address [address] [place] [address] Care Team Providers Care Industrial Economist Name Role Phone Unavailable Primary Care Provider Unavailabl e Encounter Details Date Type Department Care Team (Late st Contact Info) Description 11/07/2024 Abstract [facility] [address] [facility] [place] [phone] Pee Del Rio DO [address], [id number] Social History Tobacco Use Types Packs/Day Years [...] EDT Routine ERVIN GRIFFITHS [address] [place] [phone] Pee Del Rio DO [address], [id number] documented as of this encounter Visit Diagnoses Not on filedocumented in this encounter
--- OUTSIDE RECORDS SUMMARY | 2025-05-12 14:45 | XMS_ITS | Encounter Summary ---
Author Organization [facility] Address [address] [place] [address] Care Team Providers Care Speech Writer Name Role Phone Unavailable Primary Care Provider Unavailabl e Encounter Details Date Type Department Care Team (Late st Contact Info) Description 05/05/2025 Clinisync Result Encounter [facility] External Department Unsolicited Pee Del Rio DO [address] [place] [address] Social History Tobacco Use Types Packs/Day Years [...] Info) Description 06/09/2025 9:00 AM EDT Routine [facility]BG[facility] [address] [place] [phone] Pee Del Rio DO [address] [place] [address] documented as of this encounter Procedures Procedure Name Priority Date/Time Associated Diagnosis Comments BOX TEST Routine 05/05/2025 1:40 PM EDT HBSAG SCREEN Routine 05/05/2025 1:40 PM EDT RAPID PLASMA REAGIN, QUANT Routine 05/05/2025 1:40 PM EDT HIV AB/P24 AG WITH REFLEX Routine 05/05/2025 1:40 PM EDT HCV ANTIBODY RFX TO QUANT PCR Routine 05/05/2025 1:40 PM EDT MLR HEMOGLOBIN A1C Routine 05/05/2025 1: 40 PM EDT ALL TYPE AND SCREEN Routine 05/05/2025 1 :40 PM EDT ALL RUBELLA IGG AB Routine 05/05/2025 1: 40 PM EDT ALL CBC WITH AUTO DIFF Routine 05/05/2025 1:40 PM EDT [facility] DRUG SCREEN RAPID (URINE) Routine 05/05/2025 1:25 PM EDT documented in this encounter Results * HBSAG SCREEN (05/05/2025 1:40 PM EDT) HBSAG SCREEN Negative Negative TB Comment: Performed at: - Lab[address] [id number] Mechanical Engineering Director: Evan Valenzuela PhD, Phone: [phone] 05/05/2025 1:40 PM EDT 05/05/2025 1:50 PM EDT Narrative [facility] - 05/06/2025 12:09 PM EDT us Pee Eliane DO LAB BLOOD ORDERABLES Final Resul t [facility] * RAPID PLASMA REAGIN, QUANT (05/05/2025 1:40 PM EDT) Pathologist [facility] RAPID PLASMA REAGIN, QUANT Non Reactive NonRea<1: 1 titer [facility] Comment: Please Note: This test does not meet current guidelines for screening and diagnosis of syphilis. This test is intended for following treatment response in patients being treated for syphilis infection. To screen for syphilis infection, a reflex cascade that includes both RPR and a treponema-specific assay should be utilized, such as Treponema pallidum (Syphilis) Screening Rush (189179) or Rapid Plasma Reagin (RPR) Test With Reflex to Quantitative RPR and Confirmatory Treponema pallidum Antibodies (814446). Performed at: [address] [id number] Mechanical Engineering Director: Evan Valenzuela PhD, Phone: [phone] 05/05/2025 1:40 PM EDT 05/05/2025 1:50 PM EDT Narrative [facility] - 05/06/2025 12:09 PM EDT BeMe Intimateso DO LAB BLOOD ORDERABLES Final Resul t Performing Organization Address [facility]/ZIP Co de Phone Number [facility] TB * HCV ANTIBODY RFX TO QUANT PCR (05/05/2025 1:40 PM EDT) Pathologist [facility] [place] HCV AB Non Reactive Non Reactive TB INTERPRETATION: Comment . [facility] Comment: Not infected with HCV unless early or acute infection is suspected (which may be delayed in an immunocompromised individual), or other evidence exists to indicate HCV infection. Performed at: [address] [id number] Mechanical Engineering Director: Evan Valenzuela PhD, Phone: [phone] 05/05/2025 1:40 PM EDT 05/05/2025 1:50 PM EDT Narrative [facility] - 05/06/2025 8:09 AM EDT BeMe Intimateso DO LAB BLOOD ORDERABLES Final Resul t Performing Organization Address [facility] Co de Phone Number [facility] * ALL RUBELLA IGG AB (05/05/2025 1:40 PM EDT) [facility] RUBELLA ANTIBODIES, IGG 1.56 Immune >0.99 index [facility] Comment: Non-immune <0.90 Equivocal 0.90 - 0.99 Immune >0.99 Performed at: [address] [id number] Mechanical Engineering Director: Evan Valenzuela PhD, Phone: [phone] 05/05/2025 1:40 PM EDT 05/05/2025 1:50 PM EDT Narrative [facility] - 05/06/2025 8:09 AM EDT us Pee Elaine DO [facility] Final Result Performing Organization Address City/[facility]/ZIP Co de Phone Number [facility] * HIV AB/P24 AG WITH REFLEX (05/05/2025 1:40 PM EDT) [facility] HIV AB/P24 AG SCREEN Non Reactive Non Reactive [facility] Comment: HIV-1/HIV-2 antibodies and HIV-1 p24 antigen were NOT detected. There is no laboratory evidence of HIV infection. HIV Negative Performed at: [address] [id number] Mechanical Engineering Director: Evan Valenzuela PhD, Phone: [phone] 05/05/2025 1:40 PM EDT 05/05/2025 1:50 PM EDT Narrative [facility] - 05/06/2025 5:07 AM EDT us Pee Eliane DO LAB BLOOD ORDERABLES Final Resul t [facility] * MLR HEMOGLOBIN A1C (05/05/2025 1:40 PM EDT) [facility] GLYCOHEMOGLOBIN A1C 5.2 4.5 - 6.2 % [facility] Comment: ADA RECOMMENDED LIMIT 4.0 - 6.0 ADA THERAPEUTIC TARGET < 7.0 ACTION SUGGESTED > 7.0 ESTIMATED AVERAGE GLUCOSE 103 mg/dL [facility] 05/05/2025 1:40 PM EDT 05/05/2025 1:50 PM EDT Narrative [facility] - 05/05/2025 7:28 PM EDT us Pee Eliane DO [facility] Final Result [facility] * ALL TYPE AND SCREEN (05/05/2025 1:40 PM EDT) Pathologist [facility] BLOOD TYPE O Positive [facility] ANTIBODY SCREEN NEGATIVE [facility] 05/05/2025 1:40 PM EDT 05/05/2025 1:50 PM EDT Narrative [facility] - 05/05/2025 6:24 PM EDT [facility] , Pee Eliane DO [facility] Final Result Performing Organization Address City/[facility]/ZIP Co de Phone Number [facility] TB * (ABNORMAL) ALL CBC WITH AUTO DIFF (05/05/2025 1:40 PM EDT) [facility] TB WBC 10.6 4.0 - 11.0 10 3/uL [facility] TB RBC 5.06 4.20 - 5.40 10 6/uL [facility] TBH HGB 13.2 12.0 - 16.0 g/dL TB TB HCT 39.0 36.0 - 48.0 % [facility] TBH MCV 77.1(L) 81.0 - 99.0 fL [facility]H TBH MCH 26.1(L) 26.7 - 34.0 pg [facility]H TBH MCHC 33.8 29.9 - 35.2 g/dL TB TB RDW 15.3(H) 11.0 - 15.0 % [facility] [...] Narrative [facility] - 05/05/2025 2:59 PM EDT us Pee Eliane DO [facility] Final Result [facility] * BOX TEST (05/05/2025 1:40 PM EDT) BOX TEST SENT OUT YES TBH BOX1 [facility] BOX2 05/05/25 [facility] 05/05/2025 1:40 PM EDT 05/05/2025 1:50 PM EDT Narrative [facility] - 05/05/2025 1:53 PM EDT us Pee Eliane DO LAB BLOOD ORDERABLES Final Resul t [facility] * [facility] DRUG SCREEN RAPID (URINE) (05/05/2025 1:25 PM [...] Narrative [facility] - 05/05/2025 2:55 PM EDT us Pee Del Rio DO [facility] Final Result [facility] documented in this encounter Visit Diagnoses Not on filedocumented in this encounter
--- OUTSIDE RECORDS SUMMARY | 2025-05-12 14:45 | XMS_ITS | Encounter Summary ---
Author Organization [facility] Address [address] [place] [address] Care Team Providers Care Waterproofer Name Role Phone Unavailable Primary Care Provider Unavailabl e Encounter Details Date Type Department Care Team (Late st Contact Info) Description 05/12/2025 Bamboo flowsheet ERVIN GRIFFITHS [address] [place] [phone] Pee Del Rio DO [facility] [address], [place] [address] Social History Tobacco Use Types Packs/Day Years [...] Description 06/09/2025 9:00 AM EDT Routine [facility]FF[facility] [address] [place] [address] Pee Del Rio DO [facility] [address], [place] [id number] documented as of this encounter Visit Diagnoses Not on filedocumented in this encounter
--- OUTSIDE RECORDS SUMMARY | 2025-05-12 14:45 | XMS_ITS | Encounter Summary ---
Author Organization [facility] Address [address] [place] [address] Care Team Providers Care Plug Wirer Name Role Phone Unavailable Primary Care Provider Unavailabl e Encounter Details Date Type Department Care Team (Late st Contact Info) Description 11/07/2024 Abstract [facility] [address] [facility] [place] [phone] Pee Del Rio DO [address], [facility]11 Social History Tobacco Use Types Packs/Day [...] Routine ERVIN GRIFFITHS [address] [place] [phone] Pee Del Rio DO [address], [facility]11 documented as of this encounter Visit Diagnoses Not on filedocumented in this encounter
--- OUTSIDE RECORDS SUMMARY | 2025-05-12 14:45 | XMS_ITS | Encounter Summary ---
Author Organization [facility] Address [address] [place] [address] Care Team Providers Care Milling/Polishing Operator Name Role Phone Unavailable Primary Care Provider Unavailabl e Encounter Details Date Type Department Care Team (Late Contact Info) Description 05/12/2025 Abstract [facility] GRIFFITH[facility] [address] [place] [address] Pee Del Rio DO [facility] [address], [id number] Social History Tobacco Use Types Packs/Day Years [...] Encounters Date Type Department Care Team (Late Contact Info) Description 06/09/2025 9:00 AM EDT Routine [facility]OM[facility] GRIFFITHS [address] [place] [phone] Pee Del Rio DO [facility] [address], [place] [id number] documented as of this encounter Visit Diagnoses Not on filedocumented in this encounter
--- OUTSIDE RECORDS SUMMARY | 2025-05-12 14:45 | XMS_ITS ---
Author Organization [facility] Source Produ ction (ClinicalSummary Clone) Address Unknown Care Team Providers Care Window Shade Estimator Name Role Phone Unavailable Primary Care Physician Unavailab le Results * [UNITY] ANEUPLOIDY NIPT Performed by: Apprema Component Value Range Date Fraction 6.0% 05/12/2025 03 :13 am UT Rh(D) NIPT RhD DETECTED 05/12/2025 03:1 3 am UT Sex Chromosome Aneuploidy NOT DETECTED 03:13 am UT Monosomy X LOW RISK <1 in 10,000 2024 03:13 am UT Trisomy 13 LOW RISK <1 in 10,000 2024 03:13 am UTC Trisomy 18 LOW RISK <1 in 10,000 2024 03:13 am UT Trisomy 21 LOW RISK <1 in 10,000 2024 03:13 am UT Sex MALE 05/12/2025 03:1 3 am UT Gestation AGUIAR 05/12/20 03:13 am [facility] For detailed report, see PDF See PDF 05/12/2025 03:13 am UTC 05/12/2025 03:1 3 am [facility] Social History Observation Value Start Date End Date
--- OUTSIDE RECORDS SUMMARY | 2025-05-12 14:45 | XMS_ITS | Encounter Summary ---
Author Organization [facility] Address [address] [place] [address] Care Team Providers Care Manufacturing Analyst Name Role Phone Unavailable Primary Care Provider Unavailabl e Encounter Details Date Type Department Care Team (Late st Contact Info) Description 11/06/2024 Abstract [facility] [address] [facility] [place] [phone] Pee Del Rio DO [address], [id number] Social History Tobacco Use Types Packs/Day Years [...] Routine ERVIN GRIFFITHS [address] [place] [phone] Pee Del Rio DO [address], [id number] documented as of this encounter Visit Diagnoses Not on filedocumented in this encounter
--- OUTSIDE RECORDS SUMMARY | 2025-05-12 14:58 | XMS_ITS | CCD ---
Author Organization [facility] Care Team Providers Care Experience Planning Strategist Name Role Phone Giovany Josue Unavailable Unavail able Li Guillen Primary Care Provider Li Guillen Primary Care Provider ANGELIA MCCARTHY Attending Unavailable VERA, JENNIE Referring Unavailable LI GUILLEN F Primary Care [...] SEGOVIA Attending UnavailASHISH Ramirez Primary Care Physician [phone] ELIANE, Pee R Attending Unavailable ELIANE, Pee R Admitting Unavailable ELINAE, Pee R Attending Unavailable ELIANE, Pee R Referring Unavailable ELIANE, Pee R Admitting Unavailable Daisha, Brianna L Admitting Unavailable Daisha, Brianna Araujo Attending Unavailable Daisha, Brianna L Attending Unavailable ELIANE, Pee R Attending Unavailable ELIANE, Pee R Admitting Unavailable Pee DEL RIO R Attending Unavailable Pee DEL RIO R Admitting Unavailable PEE DEL RIO Attending Unavailable PEE DEL RIO Referring Unavailable PEE DEL RIO Attending Unavailable Medications Current Medications Medication Drug Class(es) Dates Sig (Normalized) Sig (Original) Doxylamine Succinate, Sleep, (UNISOM PO) (6 sources) Start: 03-09-2025 Doxylamine Succinate, Sleep, (UNISOM PO) 03/09/2025 Active FIBER GUMMIES PO (6 sources) Start: 04-06-2025 FIBER GUMMIES PO 04/06/2025 Active letrozole 2.5 mg oral tablet (2 sources) [...] 03/27/2025 Discontinued ondansetron 4 mg oral tablet (20 sources) Serotonin-3 Receptor Antagonist Start: 03-27-2025 End: 03-27-2025 ondansetron (Zofran) 4 MG tablet Indications: [...] for Nausea/Vomiting. 8 tablet 0 09/02/2012 Active Comment on above: Take 1 tablet by irene th every 8 hours as needed for Nausea/Vomiting. Take 4 mg by mouth. Vit-Fe Fumarate-FA ( VITAMIN AND MINERAL PO) (6 sources) Start: 04-06-20 Vit-Fe Fumarate-FA ( VITAMIN AND MINERAL PO) 04/06/2025 Active promethazine hydrochloride 12.5 mg oral tablet (2 sources) Phenothiazine Start: 05-12-20 End: 08-10-20 take 1 tablet by mouth every four hours for nausea and nausea promethazine (Phenergan) 12.5 MG tablet Indications: Nausea Take 1 tablet (12.5 mg) by mouth every 4 (four) hours 180 tablet 1 05/12/2025 08/10/2025 Active pyridoxine hydrochloride 25 mg oral tablet (6 sources) Start: 03-09-20 pyridoxine (Vitamin B-6) 25 MG tablet 03/09/2025 Active tropicamide 10 mg/ml ophthalmic solution (1 source) Anticholinergic Start: 10-11-19 End: 10-12-19 tropicamide 1 % 1 Drop (MYDRIACYL) Completed/Discontinued Medications Medication Drug Class(es) Dates Sig (Normalized) Sig (Original) azithromycin 250 mg oral tablet (1 source) Macrolide Antimicrobial take 1 tablet by mouth once daily azithromycin 250 mg tablet Take 250 mg by mouth once daily. 0 Active Comment on above: Take 250 mg by mouth once daily. levonorgestrel 0.463790 mg/hr intrauterine system (1 source) Progestin, Progestin-containing [...] DAYS., # 30 tab(s), Refills(s) 0, Pharmacy: [facility] 1155, 166, cm, 07/25/24 9:47:00 EST, Height/Length [...] Comment on above: Take 1 tablet by [facility] twice daily. triamcinolone acetonide 0.001 mg/mg topical ointment (8 sources) Corticosteroid Start: 03-30-2021 triamcinolone acetonide (KENALOG) 0.1 % ointment End: 03-27-2025 triamcinolone (Kenalog) 0.5 % cream Apply topically if needed 03/27/2025 Discontinued Problems Active Problems Problem Classification Problem Date Documented Date Episodic/Chronic Blindness and vision defects (2 sources) Disorder of refraction; Translations: [Unspecified disorder of refraction] Episodic Contraceptive and procreative management (4 sources) Patient encounter status; Translations: [Encounter for procreative management, unspecified] 11-04-2024 Episodic Immunizations and screening for infectious disease (2 sources) Exposure to sexually transmissible disorder; Translations: [Contact with and (suspected) exposure to infections with a predominantly sexual mode of transmission] 05-12-2025 Episodic Menstrual disorders (1 source) Missed period; Translations: [Irregular menstruation, unspecified] 03-27-2025 Chronic Nausea and vomiting (3 sources) Nausea; Translations: [Nausea] 03-27-2025 Episodic Other endocrine disorders (12 sources) Polycystic ovary syndrome; Translations: [Polycystic ovarian [...] 05-19-2020 Episodic Other and delivery including normal (16 sources) Urine test positive; Translations: [Encounter for test, result positive] Onset: 02-24-2025 02-24-2025 Episodic Residual codes; unclassified (2 sources) Gestation period, 13 weeks; Translations: [13 weeks gestation of ] 04-21-2025 Episodic Residual codes; unclassified (2 sources) Gestation period, 15 weeks; Translations: [15 weeks gestation of ] 05-12-2025 Episodic Unclassified (2 sources) Contusion of lower [...] Test Name Value Interpretation Reference Range Facility Urinalysis macro (dipstick) panel (U)on 05-12-2025 Bilirubin, UA Negative Negative - 4(70) +++ mg/dL [facility] Blood, UA Negative Negative - 50 Jerry/mcL [facility] Clarity, UA Clear [facility] Color, UA Yellow [facility] Glucose, UA Negative Negative - 1999(110) ++++ mg/dL [facility] Interpretation and review of laboratory results Abnormal [facility] Ketones, UA Negative Negative - 160(16) ++++ mg/dL [facility] Leukocytes, UA Negative Negative - 500+++ Roberta/mcL [facility] Nitrite, UA Negative Negative - Positive [facility] pH, UA 1 5 - 9 [facility] Protein, UA Negative Negative - 1999(20) ++++ mg/dL [facility] Spec Grav, UA 1.015 1 - 1.03 [facility] Urobilinogen, UA 0.2 0.2 - 12 mg/dL [facility] BOX TESTon 05-05-2025 BOX TEST SENT OUT YES [facility] BOX1 UNITY [facility] BOX2 05/05/25 [facility] US OB TRANSVAGINALon 2 025 US OB TRANSVAGINAL EXAM: US OB [...] II, MD, PHD at 08-Apr-2025 10:16:34 AM [facility] Normal Not Available Comment on above: Order Comment: US OB VIABILITY PLEASE PERFORM TRANSVAGINAL ULTRASOUND IF INDICATED Patient's last menstrual period was 01/25/2025. HCG ( test) Ql (U)o n 03-27-2025 Interpretation and review of laboratory results Abnormal [facility] Preg Test, Ur Positive Negative [facility] US OB TRANSVAGINALon 025 US OB [...] UA Negative Negative - 4(70) +++ mg/dL [facility] Blood, UA Negative Negative - 50 Jerry/mcL [facility] Clarity, UA Clear [facility] Color, UA Yellow [facility] Glucose, UA Negative Negative - 1999(110) ++++ mg/dL [facility] Interpretation and review of laboratory results Normal [facility] Ketones, UA Negative Negative - 160(16) ++++ mg/dL [facility] Leukocytes, UA Negative Negative - 500+++ Roberta/mcL [facility] Nitrite, UA Negative Negative - Positive [facility] pH, UA 6 5 - 9 [facility] Protein, UA Negative Negative - 1999(20) ++++ mg/dL [facility] Spec Grav, UA 1.025 1 - 1.03 [facility] Urobilinogen, UA 0.2 0.2 - 12 mg/dL [facility] TBH PREG QUANT HCGon 025 HCG QUANTITATIVE 780 mIU/mL [facility] Comment on above: 5-50 0.2-1 WEEK 50-500 1-2 WEEKS 100-5,000 2-3 WEEKS 500-10,000 3-4 WEEKS 1,000-50,000 4-5 WEEKS 10,000-100,000 5-6 WEEKS 15,000-200,000 6-8 WEEKS 10,000-100,000 2-3 MONTHS [facility] PREG QUANT HCGon 025 HCG QUANTITATIVE 308 mIU/mL [facility] Comment on above: 5-50 0.2-1 WEEK 50-500 1-2 WEEKS 100-5,000 2-3 WEEKS 500-10,000 3-4 WEEKS 1,000-50,000 4-5 WEEKS 10,000-100,000 5-6 WEEKS 15,000-200,000 6-8 WEEKS 10,000-100,000 2-3 MONTHS [facility] ALL PROGESTERONEon 5 PROGESTERONE 17.3 ng/mL . [facility] Comment on above: Follicular phase 0.1 - 0.9 Luteal phase 1.8 - 23.9 Ovulation phase 0.1 - 12.0 First trimester 11.0 - 44.3 Second trimester 25.4 - 83.3 Third trimester 58.7 - 214.0 Postmenopausal 0.0 - 0.1 Performed at: [facility] [address] [id number] Journeyman Patternmaker: Evan Valenzuela PhD, Phone: [phone] [facility] DHEAon 12-30-2024 DHEA [Mass/Vol] 139 ng/dL Invalid Interpretation Code 31-701 [facility] Comment on above: Result Comment: This test was developed and its performance characteristics determined by [facility]. It has not been cleared or approved by the Food and Drug Administration. Performed at: [facility] [id number] MD Everett Buckner Performed By: #### 1 [id number] #### [facility] [address] [place] [address] Progesteroneon 11-25-2024 Progesterone Lvl 5.59 ng/mL Invalid Interpretation Code [facility] Comment on above: Result Comment: 'F N ON FOLLICULAR = 0.10 - 0.60' 'LUTEAL = 3.00 - 17.5' 'MIDLUTEAL = 3.30 - 18.6' 'POST-MENOPAUSE = 0.10 - 0.40' '-FIRST TRIMESTER = 8.30 - 66.5' 'SECOND TRIMESTER = 18.9 - 66.1' 'THIRD TRIMESTER = 35.8 - 312.4' 'MALES = 0.14 - 2.06' Performed By: #### 2 [id number] #### [facility] [address] [place] [address] US Pelvis Non-OB Completeon 11-12-2024 US Pelvis [...] MD Transcribed by: MARVA Technologist: Norman CLEMENS [facility] US Transvaginal Non-OBon US Transvaginal Non-OB Exam Date/Time: 11/11/2024 12:54 EST Reason for Exam: E28.2 Report See ultrasound pelvis non-OB for report of ultrasound pelvis transvaginal. Ordering Provider: Pee DEL RIO FINAL REPORT Dictated: 11/12/2024 12:14 pm Desmond Quinteros MD Signed (Electronic Signature): 11/12/2024 12:14 pm Signed by: Desmond Quinteros MD Transcribed by: MARVA Technologist: Norman CLEMENS [facility] Anti-Mullerian Hormone (AMH) on 11-10-2024 Mullerian inhibiting substance [Mass/Vol] 5.77 ng/mL Invalid Interpretation Code [facility] Comment on above: Result Comment: For assays employing antibodies, the possibility exists for interference by heterophile antibodies in the samples.1 1.Andre Reed Interferences in Immunoassays - still a threat. Clin. Chem. 2000; 46: 0577-9078. This test was developed and its performance characteristics determined by [employer]. It has not been cleared or approved by the Food and Drug Administration. Reference Range: Females 36 - 40y: 0.42 - 8.34 Median 1.69 AMH concentrations of >= 1.06 ng/mL is correlated with a better response to ovarian stimulation, produced more retrievable oocytes and higher odds of live according to Gloria et al. Fertility and Sterility. 2010: 94:1492-2486. The current AMH test method correlates with [...] exclude an AMH-secreting ovarian tumor. Performed at: [facility] [place], [place] [id number] MD Rajeev Lala Performed By: #### 1 [id number] #### [facility] [address] [place] [address] DHEAon 11-10-2024 DHEA [Mass/Vol] 101 ng/dL Invalid Interpretation Code 26-760 [facility] Comment on above: Result Comment: This test was developed and its performance characteristics determined by [employer]. It has not been cleared or approved by the Food and Drug Administration. Performed at: [address] [id number] MD Everett Buckner Performed By: #### 1 [id number] #### [facility] [address] [place] [address] DHEASon 11-10-2024 DHEA-S [Mass/Vol] 91.8 microgram/dL Invalid Interpretation Code 57.3-279.2 [facility] Comment on above: Result Comment: Perf ormed at: [facility] [address], [place] [id number] PhD Bianca Gordon Performed By: #### 1 [id number] #### [facility] [address] [place] [address] FSHon 11-07-2024 Follitropin Qn 5.2 m[IU]/mL Invalid Interpretation Code [facility] Comment on above: Result Comment: Adul t Female Range Follicular phase 3.5 - 12.5 Ovulation phase 4.7 - 21.5 Luteal phase 1.7 - 7.7 Postmenopausal 25.8 - 134.8 Performed at: [facility] [address], [place] [id number] PhD Bianca Gordon Performed By: #### 2 [id number] #### [facility] [address] [place] [address] LHon 11-07-2024 Lutropin Qn 11.1 m[IU]/mL Invalid Interpretation Code [facility] Comment on above: Result Comment: Adul t Female Range Follicular phase 2.4 - 12.6 Ovulation phase 14.0 - 95.6 Luteal phase 1.0 - 11.4 Postmenopausal 7.7 - 58.5 Performed at: [facility] [address], [place] [id number] PhD Bianca Gordon Performed By: #### 2 [id number] #### [facility] [address] [place] [address] BhCG Quanton 11-05-2024 HCG.beta subunit Qn m[IU]/mL Normal 1-[address] [facility] Comment on above: Result Comment: 'F N ON < 1 - 3' ' 0.2 - 1 WEEK = 5 TO 50' ' 1 - 2 WEEKS = 50 - 500' ' 2 - 3 WEEKS = 100 - 5000' ' 3 - 4 WEEKS = 500 - 84128' ' 4 - 5 WEEKS = 1000 - 50811' ' 5 - 6 WEEKS = 67767 - 853599' ' 6 - 8 WEEKS = 23295 - 561708' ' 8 - 12 WEEKS = 38727 - 094056' Performed By: #### 2 [id number] #### [facility] [address] [place] [address] CBC w/ Auto Diffon 5 Basophils/100 WBC (Bld) 0.6 % Normal 0.0-2.0 [facility] Comment on above: Performed By: #### 2 [id number] #### [facility] [address] [place] [address] Basophils/Leukocytes Auto (Bld) [Pure # fraction] 0.0 E9/L Normal 0.0-0.2 [facility] Comment on above: Performed By: #### 2 [id number] #### [facility] [address] [place] [address] Eosinophils (Bld) [#/Vol] 0.1 E9/L Normal 0.0-0.5 [facility] Comment on above: Performed By: #### 2 [id number] #### [facility] [address] [place] [address] Eosinophils/100 WBC (Bld) 0.7 % Normal 0.0-8.0 [facility] Comment on above: Performed By: #### 2 [id number] #### [facility] [address] [place] [address] Erythrocyte distribution width (RBC) [Ratio] 14.0 % Normal 10.9-14.2 [facility] Comment on above: Performed By: #### 2 [id number] #### [facility] [address] [place] [address] Hematocrit (Bld) [Volume fraction] 44.7 % Normal 34.0-46.0 [facility] Comment on above: Performed By: #### 2 [id number] #### [facility] [address] [place] [address] Hemoglobin (Bld) [Mass/Vol] 15.0 g/dL Normal 12.0-16.0 [facility] Comment on above: Performed By: #### 2 599386 #### [facility] [address] [place] [address] Lymphocytes (Bld) [#/Vol] 2.3 E9/L Normal 1.0-4.0 [facility] Comment on above: Performed By: #### 2 [id number] #### [facility] [address] [place] [address] Lymphocytes/100 WBC (Bld) 26.2 % Normal 14.0-50.0 [facility] Comment on above: Performed By: #### 2 [id number] #### [facility] [address] [place] [address] MCH (RBC) [Entitic mass] 27.3 pg Normal 27.0-34.0 [facility] Comment on above: Performed By: #### 2 [id number] #### [facility] [address] [place] [address] MCHC (RBC) [Mass/Vol] 33.5 g/dL Normal 31.4-36.0 [facility] Comment on above: Performed By: #### 2 [id number] #### [facility] [address] [place] [address] MCV (RBC) [Entitic vol] 81.3 fL Normal 80.0-100.0 [facility] Comment on above: Performed By: #### 2 [id number] #### [facility] [address] [place] [address] Monocytes (Bld) [#/Vol] 0.5 E9/L Normal 0.2-1.0 [facility] Comment on above: Performed By: #### 2 [id number] #### [facility] [address] [place] [address] Neutrophils (Bld) [#/Vol] 5.7 E9/L Normal 2.0-7.5 [facility] Comment on above: Performed By: #### 2 [id number] #### [facility] [address] [place] [address] Neutrophils/100 WBC (Bld) 66.3 % Normal 36.0-75.0 [facility] Comment on above: Performed By: #### 2 [id number] #### [facility] [address] [place] [address] Platelet mean volume (Bld) [Entitic vol] 7.5 fL Normal 6.4-10.8 [facility] Comment on above: Performed By: #### 2 [id number] #### [facility] [address] [place] [address] Platelets (Bld) [#/Vol] 302.0 E9/L Normal 150.0-500.0 [facility] Comment on above: Performed By: #### 2 [id number] #### [facility] [address] [place] [address] RBC (Bld) [#/Vol] 5.5 E12/L Normal 4.3-5.9 [facility] Comment on above: Performed By: #### 2 [id number] #### [facility] [address] [place] [address] WBC corrected for nucl RBC Auto (Bld) [#/Vol] 8.6 E9/L Normal 4.0-11.0 [facility] Comment on above: Performed By: #### 2 [id number] #### [facility] [address] [place] [address] CHEMISTRYOrdered By: SYSTEM SYSTEM on 11-05-2024 Free [...] 3 - 4 WEEKS = 500 - 62472' ' 4 - 5 WEEKS = 1000 - 10822' ' 5 - 6 WEEKS = 78286 - 161954' ' 6 - 8 WEEKS = 01656 - 488011' ' 8 - 12 WEEKS = 53936 - 211633' TSH Qn 0.99 m[IU]/L Normal 0.34 - 5.60 mcIU/mL Remisol Chem CHEMISTRYOrdered By: Catherine Armenta on 11-05-2024 HbA1c (Bld) [Mass fraction] 5.3 % Normal <=5.9% [facility] Free T4on 11-05-2024 Free T4 [Mass/Vol] 0.89 ng/dL Normal 0.58-1.64 [facility] Comment on above: Performed By: #### 2 [id number] #### [facility] [address] [place] [address] HEMATOLOGYOrdered By: SYSTEM SYSTEM on 11-05-2024 Basophils/100 [...] Normal 4.0 - 11.0 E9/L Remisol Heme [id number] 11-05-2024 HbA1c (Bld) [Mass fraction] 5.3 % Normal <=5.9 [facility] Comment on above: Performed By: #### 7 [id number] #### [facility] [address] [place] [address] Lab Miscellaneous-LCon 11-05 Lab Miscellaneous orderable test Invalid Interpretation Code [facility] Comment on above: Performed By: #### 1 [id number] #### [facility] [address] [place] [address] Lab Miscellaneous Orderable test Invalid Interpretation Code [facility] Comment on above: Performed By: #### 1 [id number] #### [facility] [address] [place] [address] Lab Miscellaneous Orderable test Invalid Interpretation Code [facility] Comment on above: Performed By: #### 1 [id number] #### [facility] [address] [place] [address] Test Code 64974 Invalid Interpretation Code [facility] Comment on above: Performed By: #### 1 [id number] #### [facility] [address] [place] [address] Test Code 392606 Invalid Interpretation Code [facility] Comment on above: Performed By: #### 1 [id number] #### [facility] [address] [facility] [place] [address] Test Name DHEA Invalid Interpretation Code [facility] Comment on above: Performed By: #### 1 [id number] #### [facility] [address] [facility] [place] [address] Test Name AMH Invalid Interpretation Code [facility] Comment on above: Performed By: #### 1 [id number] #### [facility] [address] [place] [address] Laboratory - Chemistry and C hemistry - challengeOrdered By: Maria Luisa Lutz on 11-05-2024 Sodium [Moles/Vol] 14722 mmol/L Invalid Interpretation Code [facility] No Panel InformationOrdered By: Leia Foote on 11-05-2024 Lab Miscellaneous orderable test Invalid Interpretation Code [facility] No Panel InformationOrdered By: Maria Luisa Lutz on 11-05-2024 Test Name DHEA Invalid Interpretation Code [facility] Reference Laboratory Testing Ordered By: Maria Luisa Lutz on 11-05-2024 Sodium [Moles/Vol] 996308 mmol/L Invalid Interpretation Code [facility] Test Name AMH Invalid Interpretation Code [facility] TSHon 11-05-2024 TSH Qn 0.99 m[IU]/L Normal 0.34-5.60 [facility] Comment on above: Performed By: #### 2 [id number] #### [facility] [address] [place] [address] Family Medicine Office/Clini c Noteon 07-25-2024 Family [...] 07/25/24 9:47:00 EST, Height/Length Dosing, 92.6, kg, ... Follow-up With When Contact Information ASHISH SEGOVIA CNP, FAM Within 4 weeks [address] [place] [address] Business (1) Additional Instructions: Weight management Patient Education [...] Recorded 2024-05-01: VIS DATE: 04/22/2021 SARS-CoV-2 (COVID-19) mRNAMUL.ORD![id number] 09/15/2022 Recorded influenza virus vaccine, inactivated 07/10/2022 Recorded 2024-05-01: NULL diphtheria/pertussis , acel/tetanus adult 02/06/2022 Recorded 2024-05-01: VIS DATE: 04/22/2021 influenza virus vaccine, inactivated 09/08/2021 Recorded SARS-CoV-2 (COVID-19) mRNA-1273 vaccine 09/08/2021 Recorded influenza virus vaccine, inactivated 06/29/2021 Rec (more content not included)... Normal [facility] Comment on above: Result Comment: Elec tronically Signed By: ASHISH SEGOVIA CNP\zenon\Date and Time Signed: 07/25/24 10:29 EST Family [...] ASHISH SEGOVIA CNP, FAM Within [address] [phone] Business (1) Additional Instructions: Weight management [...] Recorded 2024-05-01: VIS DATE: 04/22/2021 SARS-CoV-2 (COVID-19) mRNAMUL.ORD![id number] 09/15/2022 Recorded influenza virus vaccine, inactivated 07/10/2022 Recorded 2024-05-01: NULL diphtheria/pertussis , acel/tetanus adult 02/06/2022 Recorded 2024-05-01: VIS DATE: 04/22/2021 influenza virus vaccine, inactivated 09/08/2021 Recorded SARS-CoV-2 (COVID-19) (more content not included)... Normal [facility] Comment on above: Result Comment: Elec tronically [...] for choosing us for your care. Normal [facility] Family Medicine Office/Clini c Noteon 05-01-2024 Family [...] tab(s), Refills(s) 0, Pharmacy: [facility], 166.6, cm, 05/01/24 10:12:00 EDT, Height/Length [...] Recorded 2024-05-01: VIS DATE: 04/22/2021 SARS-CoV-2 (COVID-19) mRNAMUL.ORD![id number] 09/15/2022 Recorded influenza virus vaccine, inactivated 07/10/2022 [...] 05/11/2011 Recorde (more content not included)... Normal [facility] Comment on above: Result Comment: Elec tronically Signed By: ASHISH SEGOVIA CNP\.luis\Date and Time Signed: 05/01/24 11:41 EDT Cytology Cervical or vaginal smear or scraping studyon 04-22-2024 [facility] Ambulatory Visit Summaryon 0 03-25-2024 Ambulatory [...] for choosing us for your care. Norman [facility] Family Medicine Office/Clini c Noteon 03-25-2024 Family [...] answered. RTC as needed Ordered: Removal IUD 25388 2. BMI 32.0-32.9,adult (Z68.32: Body mass index [...] influenza virus vaccine, inactivated 06/29/2020 Recorded Normal [facility] Comment on above: Result Comment: Elec tronically Signed By: Brianna Lawson\.luis\Date and Time Signed: 03/25/24 13:14 EDT CBC w/ Auto Diffon 4 Basophils/100 WBC (Bld) 0.5 % Normal 0.0-2.0 [facility] Comment on above: Performed By: #### 2 [id number], [id number], [id number], [id number] #### [facility] [address] [place] [address] Basophils/Leukocytes Auto (Bld) [Pure # fraction] 0.0 E9/L Normal 0.0-0.2 [facility] Comment on above: Performed By: #### 2 [id number], [id number], [id number], [id number] #### [facility] [address] [place] [address] Eosinophils (Bld) [#/Vol] 0.1 E9/L Normal 0.0-0.5 [facility] Comment on above: Performed By: #### 2 [id number], [id number], [id number], [id number] #### [facility] [address] [place] [address] Eosinophils/100 WBC (Bld) 0.8 % Normal 0.0-8.0 [facility] Comment on above: Performed By: #### 2 842306, [id number], [id number], [id number] #### [facility] [address] [place] [address] Erythrocyte distribution width (RBC) [Ratio] 13.6 % Normal 10.9-14.2 [facility] Comment on above: Performed By: #### 2 [id number], [id number], [id number], [id number] #### [facility] [address] [place] [address] Hematocrit (Bld) [Volume fraction] 46.6 % High 34.0-46.0 [facility] Comment on above: Performed By: #### 2 [id number], [id number], [id number], [id number] #### [facility] [address] [place] [address] Hemoglobin (Bld) [Mass/Vol] 15.6 g/dL Normal 12.0-16.0 [facility] Comment on above: Performed By: #### 2 765076, [id number], [id number], [id number] #### [facility] [address] [place] [address] Lymphocytes (Bld) [#/Vol] 2.3 E9/L Normal 1.0-4.0 [facility] Comment on above: Performed By: #### 2 138716, [id number], [id number], [id number] #### [facility] [address] [place] [address] Lymphocytes/100 WBC (Bld) 28.3 % Normal 14.0-50.0 [facility] Comment on above: Performed By: #### 2 181872, [id number], [id number], [id number] #### [facility] [address] [place] [address] 75352 MCH (RBC) [Entitic mass] 28.4 pg Normal 27.0-34.0 [facility] Comment on above: Performed By: #### 2 063789, [id number], 0747102, 0226828 #### [facility] [address] [place] [address] 52622 MCHC (RBC) [Mass/Vol] 33.5 g/dL Normal 31.4-36.0 [facility] Comment on above: Performed By: #### 2 520043, [id number], 0958290, 5687978 #### [facility] [address] [place] [address] 56425 MCV (RBC) [Entitic vol] 84.7 fL Normal 80.0-100.0 [facility] Comment on above: Performed By: #### 2 905555, 86942208, 0527131, 3823761 #### [facility] [address] [place] [address] 38994 Monocytes (Bld) [#/Vol] 0.6 E9/L Normal 0.2-1.0 [facility] Comment on above: Performed By: #### 2 280187, 79115938, 9824339, 5487129 #### [facility] [address] [place] [address] 39641 Neutrophils (Bld) [#/Vol] 5.2 E9/L Normal 2.0-7.5 [facility] Comment on above: Performed By: #### 2 617577, 01637037, 8599775, 9464904 #### [facility] [address] [place] [address] 28428 Neutrophils/100 WBC (Bld) 63.4 % Normal 36.0-75.0 [facility] Comment on above: Performed By: #### 2 519191, 47270574, 2526391, 2225674 #### [facility] [address] [place] [address] Platelet mean volume (Bld) [Entitic vol] 7.1 fL Normal 6.4-10.8 [facility] Comment on above: Performed By: #### 2 800647, 95549396, 8964301, 0004843 #### [facility] [address] [place] [address] Platelets (Bld) [#/Vol] 287.0 E9/L Normal 150.0-500.0 [facility] Comment on above: Performed By: #### 2 192907, 80787572, 9488144, 3072869 #### [facility] [address] [place] [address] RBC (Bld) [#/Vol] 5.5 E12/L Normal 4.3-5.9 [facility] Comment on above: Performed By: #### 2 252644, 84343156, 8349948, 9856801 #### [facility] [address] [place] [address] 92784 WBC corrected for nucl RBC Auto (Bld) [#/Vol] 8.2 E9/L Normal 4.0-11.0 [facility] Comment on above: Performed By: #### 2 338416, 94410303, 5959006, 8620633 #### [facility] [address] [place] [address] CMPon 01-12-2024 Calcium [Mass/Vol] 9.2 mg/dL Normal 8.9-11.1 [facility] Comment on above: Performed By: #### 2 687878, 93827661, 9939017, 9188888 #### [facility] [address] [place] [address] Chloride [Moles/Vol] 105 mmol/L Normal 101-[address] [facility] Comment on above: Performed By: #### 2 567615, 45986308, 1593068, 3442726 #### [facility] [address] [place] [address] Glucose [Mass/Vol] 89 mg/dL Normal 55-199 [facility] Comment on above: Performed By: #### 2 757920, 88440959, 1421756, 3535086 #### [facility] [address] [place] [address] Potassium [Moles/Vol] 3.9 mmol/L Normal 3.5-5.3 [facility] Comment on above: Performed By: #### 2 836745, 99745573, 7173607, 3823314 #### [facility] [address] [place] [address] Sodium [Moles/Vol] 138 mmol/L Normal 135-145 [facility] Comment on above: Performed By: #### 2 553541, 24511354, 1368112, 8324742 #### [facility] [address] [place] [address] Urea nitrogen [Mass/Vol] 15 mg/dL Normal 5-21 [facility] Comment on above: Performed By: #### 2 681826, 78757524, 5960732, 2210542 #### [facility] [address] [place] [address] Anion gap [Moles/Vol] 12 mmol/L Normal 6-16 [facility] Comment on above: Performed By: #### 2 789166, 21941546, 7421430, 3082353 #### [facility] [address] [place] [address] CO2 [Moles/Vol] 25 mmol/L Normal 21-31 [facility] Comment on above: Performed By: #### 2 436085, 18363416, 4271228, 9124557 #### [facility] [address] [place] [address] Creatinine [Mass/Vol] 0.7 mg/dL Normal 0.5-1.3 [facility] Comment on above: Performed By: #### 2 462600, 93497228, 8475998, 9712993 #### [facility] [address] [place] [address] Urea nitrogen/Creatinine [Mass ratio] 21 No Units High 10-20 [facility] Comment on above: Performed By: #### 2 133584, 98059553, 1888408, 5061813 #### [facility] [address] [place] [address] Albumin [Mass/Vol] 4.3 g/dL Normal 3.3-5.0 [facility] Comment on above: Performed By: #### 2 827246, 03771352, 4607941, 1575816 #### [facility] [address] [place] [address] Albumin/Globulin (S) [Mass conc ratio] 1.4 Normal 1.1-2.2 [facility] Comment on above: Performed By: #### 2 536628, 86196065, 1066947, 0658231 #### [facility] [address] [place] [address] ALP [Catalytic activity/Vol] 64 Int._Unit/L Normal 21-98 [facility] Comment on above: Performed By: #### 2 596740, 89413795, 4292813, 5558262 #### [facility] [address] [place] [address] ALT No additional P-5'-P [Catalytic activity/Vol] 11 Int._Unit/L Normal 6-46 [facility] Comment on above: Performed By: #### 2 636634, 57558496, 4713016, 4108586 #### [facility] [address] [place] [address] AST [Catalytic activity/Vol] 13 Int._Unit/L Normal 5-43 [facility] Comment on above: Performed By: #### 2 881151, 37686553, 4929892, 9133316 #### [facility] [address] [place] [address] Bilirubin [Mass/Vol] 0.5 mg/dL Normal 0.0-1.[address] [facility] Comment on above: Performed By: #### 2 511741, 08465757, 5028535, 7301823 #### [facility] [address] [place] [address] Globulin (S) [Mass/Vol] 3.1 g/dL Normal 1.4-4.0 [facility] Comment on above: Performed By: #### 2 967343, 61670461, 4051422, 9803240 #### [facility] [address] [place] [address] Protein [Mass/Vol] 7.4 g/dL Normal 6.0-7.8 [facility] Comment on above: Performed By: #### 2 857149, 56732446, 3471547, 2304472 #### [facility] [address] [place] [address] Consent for Treatmenton 12-17 Consent for Treatment [id number] #1.00TIFF Normal [facility] Lipid Panelon 01-12-2024 Cholesterol [Mass/Vol] 206 mg/dL High 120-200 [facility] Comment on above: Performed By: #### 2 844068, 74221533, 9925157, 2555363 #### [facility] [address] [place] [address] Cholesterol in HDL [Mass/Vol] 58 mg/dL Invalid Interpretation Code [facility] Comment on above: Result Comment: '>= 60 LOW RISK' '<= 40 HIGH RISK' Performed By: #### 2 169917, 72478666, 9958740, 8185795 #### [facility] [address] [place] [address] Cholesterol in LDL [Mass/Vol] 150 mg/dL High <=129 [facility] Comment on above: Performed By: #### 2 342677, 83733522, 7645120, 2959127 #### [facility] [address] [place] [address] Cholesterol in VLDL [Mass/Vol] 16 mg/dL Normal 7-40 [facility] Comment on above: Performed By: #### 2 691978, 39301345, 4035081, 3517103 #### [facility] [address] [place] [address] Triglyceride [Mass/Vol] 79 mg/dL Normal <=149 [facility] Comment on above: Performed By: #### 2 082471, 11067592, 9285192, 5716338 #### [facility] [address] [place] [address] Physician Orderon 01-12-2024 Physician Order [id number] 40#1.00TIFF Normal [facility] eGFRon 01-12-2024 eGFR 115 mL/min/1.73 m2 Normal >=59 [facility] Comment on above: Order Comment: Order added by Discern Expert. Performed By: #### 2 177369, 28570447, 6185011, 9106711 #### [facility] [address] [place] [address] CBC With Platelet and Differ entialon 08-16-2022 Basophils (Bld) [#/Vol] 0.1 10*3/uL Normal 0.0-0.2 [facility] Comment on above: Performed By: #### C BCWD #### [facility] [address] [place] [address] Basophils/100 WBC (Bld) 0.7 % Normal [facility] Comment on above: Performed By: #### C BCWD #### [facility] [address] [place] [address] Eosinophils (Bld) [#/Vol] 0.1 10*3/uL Normal 0.0-0.7 [facility] Comment on above: Performed By: #### C BCWD #### [facility] [address] [place] [address] Eosinophils/100 WBC (Bld) 1.0 % Normal [facility] Comment on above: Performed By: #### C BCWD #### [facility] [address] [place] [address] Erythrocyte distribution width (RBC) [Ratio] 13.5 % Normal 11.5-14.5 [facility] Comment on above: Performed By: #### C BCWD #### [facility] [address] [place] [address] Hematocrit (Bld) [Volume fraction] 44.1 % Normal 37.0-47.0 [facility] Comment on above: Performed By: #### C BCWD #### [facility] [address] [place] [address] Hemoglobin (Bld) [Mass/Vol] 14.9 g/dL Normal 12.0-16.0 [facility] Comment on above: Performed By: #### C BCWD #### [facility] [address] [place] [address] Lymphocytes (Bld) [#/Vol] 2.3 10*3/uL Normal 1.0-4.8 [facility] Comment on above: Performed By: #### C BCWD #### [facility] [address] [place] [address] Lymphocytes/100 WBC (Bld) 28.7 % Normal [facility] Comment on above: Performed By: #### C BCWD #### [facility] [address] [place] [address] MCH (RBC) [Entitic mass] 28.4 pg Normal 27.0-31.3 [facility] Comment on above: Performed By: #### C BCWD #### [facility] [address] [place] [address] MCHC 33.8 % Normal 33.0-37.0 [facility] Comment on above: Performed By: #### C BCWD #### [facility] [address] [place] [address] MCV (RBC) [Entitic vol] 84.2 fL Normal 79.4-94.8 [facility] Comment on above: Performed By: #### C BCWD #### [facility] [address] [place] [address] Monocytes (Bld) [#/Vol] 0.5 10*3/uL Normal 0.2-0.8 [facility] Comment on above: Performed By: #### C BCWD #### [facility] [address] [place] [address] Monocytes/100 WBC (Bld) 6.8 % Normal [facility] Comment on above: Performed By: #### C BCWD #### [facility] [address] [place] [address] Neutrophils (Bld) [#/Vol] 5.0 10*3/uL Normal 1.4-6.5 [facility] Comment on above: Performed By: #### C BCWD #### [facility] [address] [place] [address] Neutrophils/100 WBC (Bld) 62.8 % Normal [facility] Comment on above: Performed By: #### C BCWD #### [facility] [address] [place] [address] Platelets (Bld) [#/Vol] 271 10*3/uL Normal 130-400 [facility] Comment on above: Performed By: #### C BCWD #### [facility] [address] [place] [address] RBC (Bld) [#/Vol] 5.23 10*6/uL Normal 4.20-5.40 [facility] Comment on above: Performed By: #### C BCWD #### [facility] [address] [place] [address] WBC (Bld) [#/Vol] 7.9 10*3/uL Normal 4.8-10.8 [facility] Comment on above: Performed By: #### C BCWD #### [facility] [address] [place] [address] Comprehensive Metabolic Pane chantal 08-16-2022 Albumin [Mass/Vol] 4.3 g/dL Normal 3.5-4.6 [facility] Comment on above: Performed By: #### C MP #### [facility] [address] [place] [address] ALP [Catalytic activity/Vol] 72 U/L Normal 40-130 [facility] Comment on above: Performed By: #### C MP #### [facility] [address] [place] [address] ALT [Catalytic activity/Vol] 15 U/L Normal 0-33 [facility] Comment on above: Performed By: #### C MP #### [facility] [address] [place] [address] Anion gap [Moles/Vol] 12 mmol/L Normal 9-15 [facility] Comment on above: Performed By: #### C MP #### [facility] [address] [place] [address] AST [Catalytic activity/Vol] 19 U/L Normal 0-35 [facility] Comment on above: Performed By: #### C MP #### [facility] [address] [place] [address] Bilirubin [Mass/Vol] 0.3 mg/dL Normal 0.2-0.7 [facility] Comment on above: Performed By: #### C MP #### [facility] [address] [place] [address] Calcium [Mass/Vol] 9.3 mg/dL Normal 8.5-9.9 [facility] Comment on above: Performed By: #### C MP #### [facility] [address] [place] [address] Chloride [Moles/Vol] 104 mmol/L Normal 95-107 [facility] Comment on above: Performed By: #### C MP #### [facility] [address] [place] [address] CO2 [Moles/Vol] 26 mmol/L Normal 20-31 [facility] Comment on above: Performed By: #### C MP #### [facility] [address] [place] [address] Creatinine [Mass/Vol] 0.73 mg/dL Normal 0.50-0.90 [facility] Comment on above: Performed By: #### C MP #### [facility] [address] [place] [address] GFR >60.0 Normal >60 [facility] Comment on above: Result Comment: Dia atric calculator link https://www.kidney.org/professionals/kdoqi/gfr_calculatorped Effective Jun 19, 2022 [...] secretion. Performed By: #### C MP #### [facility] [address] [place] [address] Globulin (S) [Mass/Vol] 2.8 g/dL Normal 2.3-3.5 [facility] Comment on above: Performed By: #### C MP #### [facility] [address] [place] [address] Glucose [Mass/Vol] 90 mg/dL Normal 70-99 [facility] Comment on above: Performed By: #### C MP #### [facility] [address] [place] [address] Potassium [Moles/Vol] 4.2 mmol/L Normal 3.4-4.9 [facility] Comment on above: Performed By: #### C MP #### [facility] [address] [place] [address] Protein [Mass/Vol] 7.1 g/dL Normal 6.3-8.0 [facility] Comment on above: Performed By: #### C MP #### [facility] [address] [place] [address] Sodium [Moles/Vol] 142 mmol/L Normal 135-144 [facility] Comment on above: Performed By: #### C MP #### [facility] [address] [place] [address] Urea nitrogen [Mass/Vol] 12 mg/dL Normal 6-20 [facility] Comment on above: Performed By: #### C MP #### [facility] [address] [place] [address] Lipid Panelon 08-16-2022 Cholesterol [Mass/Vol] 221 mg/dL Critically high 0-199 [facility] Comment on above: Result Comment: ATP III Cholesterol Classification is Borderline High. Performed By: #### L IPID #### [facility] [address] [place] [address] Cholesterol in HDL [Mass/Vol] 51 mg/dL Normal 40-59 [facility] Comment on above: Result Comment: ATP III [...] CHD Performed By: #### L IPID #### [facility] [address] [place] [address] Cholesterol in LDL [Mass/Vol] 149 mg/dL Critically high 0-129 [facility] Comment on above: Result Comment: ATT III Classification is Borderline High. Performed By: #### L IPID #### [facility] [address] [place] [address] Triglyceride [Mass/Vol] 105 mg/dL Normal 0-150 [facility] Comment on above: Result Comment: ATP III Triglycerides Classification is Normal. Performed By: #### L IPID #### [facility] [address] [place] [address] Shane 10-18-2021 CNPN Telephone (OPHTNR) JASON WHITE ([id number]) 1990 F Date Time Provider Department 10/18/21 JENNIE GAMEZ OPHTNR During your visit today, we recorded the following information about you: Jennie Gamez OD 10/18/2021 1:28 PM Signed Spoke to patient. Finalize Prec[facility] One. Received records from [facility]. 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 Allergies As of Date: 10/18/2021 (No Known Allergies) Date Reviewed: 10/12/2021 Reviewed by: Jennie Gamez OD - Fully Assessed Reason for Visit: Contact Lens Question [8050] Prescriptions as of 10/18/2021 - triamcinolone acetonide [...] Status:Closed by JENNIE GAMEZ on 10/18/21 Normal [facility] SARS-CoV-2 (COVID-19) RT-PCR on 07-05-2021 SARS-CoV-2 (COVID-19) RNA OLGA+probe Ql (Unsp spec) Positive Abnormal [facility] Comment on above: Order Comment: Emplo garibay Result Comment: POSI TIVE: SARS-CoV-2 RNA [...] envelope E-gene for pickard-Sarbecovirus detection using the Giafnranco SARS-CoV-2 assay on the Fernanda Gianfranco 6800 System. - Comment: This test has received FDA Emergency Use Authorization (EUA) and has been verified by [facility]. This test is only authorized for [...] at the following links: For Healthcare Providers: www.fda.gov/media/049546/download For Patients: www.fda.gov/media/920183/download - Reference Value: Negative Performed By: #### C OVID #### [address] [address] Progress Noteon 01-24-2021 Supervisor Final Authentication Interface Message Text GYNECOLOGY OFFICE VISIT [...] No history of dysuria, frequency or incontinence MEN'S SWIM COACH: Negative for abnormal vaginal bleeding, abnormal vaginal [...] Documentation and care coordination: -- minutes. Normal [facility] Quantiferon TB Goldon 2020 Quantiferon TB Gold Indeterminate Normal Negative [facility] Comment on above: Result Comment: An [...] address questions to Dr. Alexander Jaimes or [email or web address] Testing Performed: [facility] [address] [place] [address] Performed By: #### Q MSBG #### [address] [address] SPINE, LUMBOSACRAL; MIN 4 EWSon 10-08-2017 SPINE, [...] exam.Electronically signed by: KIN DELGADO MD Normal [facility] Vital Signs Date Time Vital Sign Value Performing Clinician Myron prince 05-12-2025 10:11-0400 Body weight 99.79 kg Pee Eliane DO Work Phone: [facility] 05-12-2025 10:11-0400 Diastolic blood pressure 82 mm[Hg] Pee Eliane DO Work Phone: [facility] 05-12-2025 10:11-0400 Systolic blood pressure 138 mm[Hg] Pee Eliane DO Work Phone: [facility] 03-27-2025 10:39-0400 Body weight 99.97 kg Eliane Ob [facility] 03-27-2025 10:39-0400 Diastolic blood pressure 82 mm[Hg] Eliane Ob [facility] 03-27-2025 10:39-0400 Systolic blood pressure 130 mm[Hg] Eliane Ob [facility] 11-04-2024 08:39-0500 Body weight 98.88 kg Pee Eliane DO Work Phone: [facility] 11-04-2024 08:39-0500 Diastolic blood pressure 78 mm[Hg] Pee Eliane DO Work Phone: [facility] 11-04-2024 08:39-0500 Systolic blood pressure 122 mm[Hg] Pee Eliane DO Work Phone: [facility] Healthcare Encounters Encounter Date Encounter Type Care Provider Facility Start: 05-12-2025 End: 05-12-2025 Bamboo flowsheet Pee Eliane DO Work Phone: [facility] Start: 05-12-2025 End: 05-12-2025 Bamboo flowsheet Pee Eliane DO Work Phone: [facility] Start: 05-12-2025 End: 05-12-2025 Patient encounter procedure Pee Eliane DO Work Phone: [facility] Start: 05-12-2025 End: 05-12-2025 Periodic preventive med est patient 18-39 yrs Pee Eliane DO Work Phone: [facility] Comment on above: Screening, , for anatomic survey ([facility]); Well woman exam with routine gynecological exam; Second trimester ([facility]); 15 weeks gestation of ([facility]); STD exposure; Nausea Start: 05-05-2025 End: 05-05-2025 Clinisync Result Encounter Pee Eliane DO Work Phone: [facility] Unsolicited Start: 05-05-2025 End: 05-05-2025 Clinisync Result Encounter Pee Eliane DO Work Phone: [facility] Start: 04-21-2025 End: 04-21-2025 Bamboo flowsheet Pee Eliane DO Work Phone: [facility] Start: 04-21-2025 End: 04-21-2025 Bamboo flowsheet Pee Eliane DO Work Phone: [facility] Start: 04-21-2025 End: 04-21-2025 flow sheet Pee Eliane DO Work Phone: [facility] Comment on above: First trimester preg jannette ([facility]); 13 weeks gestation of ([facility]) Start: 04-21-2025 End: 04-21-2025 ambulatory PEE ELIANE Not Available Start: 04-07-2025 End: 04-07-2025 ambulatory PEE ELIANE [...] 01-20-2025 End: 01-20-2025 ambulatory Pee R ELIANE [place] [place]: 12-22-2024 End: 12-22-2024 ambulatory Pee R ELIANE [place] Start: 12-22-2024 End: 12-22-2024 Lab Drop off Pee R ELIANE [facility] Start: 11-24-2024 End: 11-24-2024 Lab Drop off Brianna L Daisha [facility] Start: 11-24-2024 End: 11-24-2024 ambulatory Brianna L Daisha [place] [place]: 11-11-2024 End: 11-11-2024 ambulatory Pee R ELIANE [place] Start: 11-11-2024 End: 11-11-2024 Patient encounter procedure Pee R ELIANE [facility] Start: 11-05-2024 End: 11-05-2024 Lab Drop off Pee R ELIANE [facility] Start: 11-05-2024 End: 11-05-2024 ambulatory JAMES JACKSONDOCK Facility: [facility] Start: 11-04-2024 End: 11-04-2024 Bamboo flowsheet Pee [...] Available Start: 07-25-2024 End: 07-25-2024 ambulatory JAMES Lund NICK Facility: [facility] Start: 07-02-2024 End: 07-02-2024 ambulatory JAMES Lund NICK Facility: [facility] Start: 07-02-2024 End: 07-02-2024 ambulatory CHIEF NURSE ANESTHETIST ASHISH SEGOVIA Facility: [facility] Start: 05-01-2024 End: 05-01-2024 ambulatory CHIEF NURSE ANESTHETIST ASHISH A LUCA Facility:[facility] Start: 04-22-2024 End: 04-22-2024 ambulatory DIANE CASAREZ Not Available Start: 03-25-2024 End: 03-25-2024 ambulatory Brianna Ashton Facility:[facility] Start: 01-12-2024 End: 01-12-2024 ambulatory JAMES Kevon NICK [place] Start: 06-08-2022 End: 06-08-2022 ambulatory ANGELIA MCCARTHY Facility:[facility] Start: 06-08-2022 End: 06-08-2022 Patient encounter procedure Angelia Mccarthy MD Work Phone: Ophthalmology Comment on above: Myopic astigmatism o f both eyes (Primary Dx); Refractive error Start: 10-12-2021 End: 10-12-2021 ambulatory JENNIE GAMEZ Facility:[facility] Start: 10-11-2021 Orders Only Jennie Gamez OD Work Phone: Ophthalmology Start: 10-08-2017 Ambulatory Giovany Josue Facility:[facility] Procedures Date Procedure Procedure Detail Performing Clinician Start: 05-12-2025 Urnls dip stick/tabl et rgnt non-auto w/o micrscp Pee Eliane DO Work Phone: Start: 05-05-2025 BOX TEST Pee Fazi o DO Work Phone: Start: 03-27-2025 Urnls dip stick/tabl et rgnt non-auto w/o micrscp Pee Eliane DO Work Phone: Start: 02-27-2025 [facility] PREG QUANT HCG Core y Eliane DO Work Phone: Start: 02-25-2025 [facility] PREG QUANT HCG Core y Eliane DO Work Phone: Start: 02-14-2025 ALL PROGESTERONE Pee Eliane DO Work Phone: Start: 04-22-2024 Microscopic observat ion [Identifier] in Cervix by Cyto stain Pee Eliane DO Work Phone: Start: 04-22-2024 Cytp cerv/vag auto t hin layer prep mnl screen Diane NEW Work Phone: Cyst (disorder) Pee ELIANE Insertion of intraut erine contraceptive device Pee ELIANE Plan of Treatment Date Care Activity Detail Author Start: 04-22-2029 Screening for malign ant neoplasm of cervix [facility] Start: 06-09-2025 End: 06-09-2025 Patient encounter procedure 06/09/2025 9:00 AM EDT Routine [facility] [address] [place] [address] [place] [address] Pee Del Rio, [address] [place] [address] [facility] Start: 05-18-2025 Influenza [facility] Start: 05-12-2025 End: 07-12-2025 Alpha fetoprotein, maternal Alpha fetoprotein, maternal Lab Routine 15 weeks gestation of ([facility]) Expected: 05/12/2025 (Approximate), Expires: 07/12/2025 [facility] Comment on above: Expected: 05/12/2025 (Approximate), Expires: 07/12/2025 Start: 05-12-2025 End: 08-12-2025 US for US OB 14+ weeks anatomy scan Imaging Routine Screening, , for anatomic survey ([facility]) Expected: 05/12/2025, Expires: 08/12/2025 [facility] Comment on above: Expected: 05/12/2025 , Expires: 08/12/2025 Start: 05-12-2025 End: 05-12-2025 Patient encounter procedure [facility] Comment on above: Arrived Start: 04-28-2025 End: 04-28-2025 Patient encounter procedure [facility] Start: 04-21-2025 End: 04-21-2025 Patient encounter procedure [facility] Comment on above: Arrived Start: 04-07-2025 End: 04-07-2025 Professional / ancillary services management 04/07/2025 9:30 AM EDT Ancillary Procedure [facility] [address] [place] [address] [facility] Start: 03-27-2025 End: 03-27-2026 ABO/Rh ABO/Rh Lab Routine Missed menses , unspecified gestational age ([facility]) Expected: 03/27/2025 (Approximate), Expires: 03/27/2026 [facility] Comment on above: Expected: 03/27/2025 (Approximate), Expires: 03/27/2026 Start: 03-27-2025 End: 03-27-2026 Blood type and Indirect antibody screen panel - Blood Type and screen Lab Routine Missed menses , unspecified gestational age ([facility]) Expected: 03/27/2025 (Approximate), Expires: 03/27/2026 [facility] Work Phone: Comment on above: Expected: 03/27/2025 (Approximate), Expires: 03/27/2026 Start: 03-27-2025 End: 03-27-2026 Drugs of abuse panel - Urine by Screen method Rapid drug screen, urine Lab Routine , unspecified gestational age ([facility]) Encounter for supervision of normal first in first trimester ([facility]) Expected: 03/27/2025 (Approximate), Expires: 03/27/2026 [facility] Comment on above: Expected: 03/27/2025 (Approximate), Expires: 03/27/2026 Start: 03-27-2025 End: 06-27-2025 US Pelvis transvaginal US OB transvaginal Imaging Routine , unspecified gestational age ([facility]) Encounter for supervision of normal first in first trimester ([facility]) Expected: 03/27/2025, Expires: 06/27/2025 [facility] Comment on above: Expected: 03/27/2025 , Expires: 06/27/2025 Start: 03-10-2025 End: 03-10-2025 Patient encounter procedure 03/10/2025 8:40 AM EDT Office Visit [facility] [address] [place] [id number] Pee Del Rio, DO [address] [place] [address] [facility] Start: 11-04-2024 End: 11-04-2025 Antimullerian hormone (AMH) Antimullerian hormone (AMH) Lab Routine PCOS (polycystic ovarian syndrome) Abnormal uterine bleeding (AUB) Expected: 11/04/2024 (Approximate), Expires: 11/04/2025 [facility] Comment on above: Expected: 11/04/2024 (Approximate), Expires: 11/04/2025 Start: 11-04-2024 End: 11-04-2025 DHEA DHEA Lab Routine PCOS (polycystic ovarian syndrome) Expected: 11/04/2024 (Approximate), Expires: 11/04/2025 [facility] Comment on above: Expected: 11/04/2024 (Approximate), Expires: 11/04/2025 Start: 11-04-2024 End: 11-04-2025 US Pelvis US Pelvis w/ TV Imaging Routine PCOS (polycystic ovarian syndrome) Expected: 11/04/2024, Expires: 11/04/2025 [facility] Comment on above: Expected: 11/04/2024 , Expires: 11/04/2025 Start: 11-04-2024 End: 11-04-2024 Patient encounter procedure 11/04/2024 8:40 AM EST Office Visit [facility] [address] [place] [id number] Pee Del Rio DO [address] [place], [place] [id number] Arrived [facility] Comment on above: Arrived Start: 05-18-2024 Influenza vaccination Influenza Vacc ine (#1) [facility] Start: 05-18-2022 Influenza vaccination INFLUENZA (#1) [facility] Start: 05-18-2021 Influenza vaccination INFLUENZA (#1) [facility] Start: 01-10-2018 HPV TESTING HPV TESTING [facility] Start: 01-10-2009 PAP TESTING PAP TESTING [facility] Start: 01-10-2007 Urine microalbumin profile DTAP,TDAP,TD (1 - Tdap) [facility] Start: 01-10-2006 HIV SCREENING HIV SCREENING [facility] Start: 2000 Adult depression screening assessment DEPRESSION SCREENING [facility] Start: 01-10-1993 COVID-19 VACCINE (1) COVID-19 VACCIN E (1) [facility] Start: 1988 HEPATITIS B (1 of 3 - 3-dose series) HEPATITIS B (1 of 3 - 3-dose series) [facility] Bacteria identified in Urine by Culture Urine culture Microbiology Routine Missed menses Ordered: 03/27/2025 [facility] Comment on above: Ordered: 03/27/2025 CBC W Auto Different ial panel - Blood CBC and differential Lab Routine PCOS (polycystic ovarian syndrome) Ordered: 11/04/2024 [facility] Comment on above: Ordered: 11/04/2024 CBC W Auto Different ial panel - Blood CBC and differential Lab Routine Missed menses , unspecified gestational age ([facility]) Ordered: 03/27/2025 [facility] Comment on above: Ordered: 03/27/2025 CHLAMYDIA TRACHOMATI S (GENITO/STI) CHLAMYDIA TRACHOMATIS (GENITO/STI) Lab Routine STD exposure Ordered: 05/12/2025 [facility] Comment on above: Ordered: 05/12/2025 Cytology Cervical or vaginal smear or scraping study Pap Smear Pathology and Cytology Routine Well woman exam with routine gynecological exam Ordered: 05/12/2025 [facility] Comment on above: Ordered: 05/12/2025 DHEA-sulfate DHEA-sulfate Lab Routine PCOS (polycystic ovarian syndrome) Ordered: 11/04/2024 [facility] Comment on above: Ordered: 11/04/2024 Follicle stimulating hormone Follicle stimulating hormone Lab Routine PCOS (polycystic ovarian syndrome) Ordered: 11/04/2024 [facility] Comment on above: Ordered: 11/04/2024 hCG, quantitative, hCG, quantitative, Lab Routine PCOS (polycystic ovarian syndrome) Ordered: 11/04/2024 [facility] Work Phone: Comment on above: Ordered: 11/04/2024 Hemoglobin A1c/Hemoglobin.total in Blood Hemoglobin A1c Lab Routine Abnormal uterine bleeding (AUB) Ordered: 11/04/2024 [facility] Comment on above: Ordered: 11/04/2024 Hemoglobin A1c/Hemoglobin.total in Blood Hemoglobin A1c Lab Routine Missed menses , unspecified gestational age ([facility]) Ordered: 03/27/2025 [facility] Comment on above: Ordered: 03/27/2025 Hepatitis B virus surface Ag [Presence] in Serum or Plasma by Immunoassay Hepatitis B surface antigen Lab Routine Missed menses , unspecified gestational age ([facility]) Ordered: 03/27/2025 [facility] Comment on above: Ordered: 03/27/2025 Hepatitis C virus Ab [Presence] in Serum or Plasma by Immunoassay Hepatitis C antibody Lab Routine Missed menses , unspecified gestational age ([facility]) Ordered: 03/27/2025 [facility] Comment on above: Ordered: 03/27/2025 HIV-1/HIV-2 antigen/antibody combination immunoassay HIV-1 and HIV-2 antibodies Lab Routine Missed menses , unspecified gestational age ([facility]) Ordered: 03/27/2025 [facility] Comment on above: Ordered: 03/27/2025 Human papilloma viru s DNA [Presence] in Unspecified specimen by Probe with amplification HPV DNA probe, amplified Microbiology Routine Well woman exam with routine gynecological exam Ordered: 05/12/2025 [facility] Comment on above: Ordered: 05/12/2025 Luteinizing hormone Luteinizing hormone Lab Routine PCOS (polycystic ovarian syndrome) Ordered: 11/04/2024 [facility] Comment on above: Ordered: 11/04/2024 Neisseria gonorrhoea e DNA [Presence] in Unspecified specimen by OLGA with probe detection Neisseria gonorrhea DNA probe, direct Lab Routine STD exposure Ordered: 05/12/2025 [facility] Comment on above: Ordered: 05/12/2025 Progesterone Progesterone Lab Routine PCOS (polycystic ovarian syndrome) Hormone disorder Ordered: 11/04/2024 [facility] Comment on above: Ordered: 11/04/2024 Reagin Ab [Presence] in Serum by RPR RPR Lab Routine Missed menses , unspecified gestational age ([facility]) Ordered: 03/27/2025 [facility] Comment on above: Ordered: 03/27/2025 Rubella antibody, IgG Rubella an tibody, IgG Lab Routine Missed menses , unspecified gestational age ([facility]) Ordered: 03/27/2025 [facility] Comment on above: Ordered: 03/27/2025 SURESWAB(R) ADVANCED VAGINITIS PLUS, TMA SURESWAB(R) ADVANCED VAGINITIS PLUS, TMA Pathology and Cytology Routine STD exposure Ordered: 05/12/2025 [facility] Work Phone: Comment on above: Ordered: 05/12/2025 Thyrotropin [Units/volume] in Serum or Plasma TSH Lab Routine PCOS (polycystic ovarian syndrome) Ordered: 11/04/2024 [facility] Comment on above: Ordered: 11/04/2024 Thyroxine (T4) free [Mass/volume] in Serum or Plasma T4, free Lab Routine PCOS (polycystic ovarian syndrome) Ordered: 11/04/2024 [facility] Comment on above: Ordered: 11/04/2024 [facility] Immunizations Immunization Date Immunization Notes Care Provider Fa cility 06-18-2023 influenza, unspecifi ed formulation Pee ELIANE [facility] 06-18-2023 influenza virus vaccine, unspecified formulation Pee Eliane DO Work Phone: [facility] Comment on above: Result Comment: 2023: VIS DATE: 04/22/2021 09-15-2022 SARS-CoV-2 (COVID-19 ) [id number].[id number] Pee ELIANE [facility] 07-10-2022 influenza virus vaccine, unspecified formulation Pee ELIANE [facility] Comment on above: Result Comment: 2023: NULL 02-06-2022 tetanus toxoid, redu west diphtheria toxoid, and acellular pertussis vaccine, adsorbed Pee ELIANE [facility] Comment on above: Result Comment: 2023: VIS DATE: 04/22/2021 09-08-2021 influenza virus vaccine, unspecified formulation Pee ELIANE [facility] 09-08-2021 SARS-CoV-2 (COVID-19 ) mRNA-1273 vaccine Pee ELIANE [facility] 06-29-2021 influenza virus vaccine, unspecified formulation Pee ELIANE [facility] Comment on above: Result Comment: 2023: NULL 11-30-2020 SARS-CoV-2 (COVID-19 ) mRNA BNT-162b2 vax Pee ELIANE [facility] Comment on above: Result Comment: 2023: TPV23 11-09-2020 SARS-CoV-2 (COVID-19 ) mRNA BNT-162b2 vax Pee ELIANE [facility] Comment on above: Result Comment: 2023: TPV23 10-12-2020 SARS-CoV-2 (COVID-19 ) mRNA-1273 vaccine Pee ELIANE [facility] 09-14-2020 SARS-CoV-2 (COVID-19 ) mRNA-1273 vaccine Pee ELIANE [facility] 06-29-2020 influenza virus vaccine, unspecified formulation Pee ELIANE [facility] 09-19-2019 influenza virus vaccine, unspecified formulation Pee ELIANE [facility] 06-25-2018 influenza virus vaccine, unspecified formulation Pee ELIANE [facility] 06-03-2015 influenza virus vaccine, unspecified formulation Pee ELIANE [facility] 06-28-2013 influenza virus vaccine, unspecified formulation Pee ELIANE [facility] 05-11-2011 tetanus toxoid, redu west diphtheria toxoid, and acellular pertussis vaccine, adsorbed Pee ELIANE [facility] 01-30-2000 measles, mumps and rubella virus vaccine Pee ELIANE [facility] 02-15-1999 hepatitis B vaccine, pediatric or pediatric/adolescent dosage Pee ELIANE [facility] Payers Date Payer Category Payer Private Health Insurance [employer] [id number] 2021 Unknown MMO MMO [employer] [id number] 2021-Present [phone] [address] [place] [address] PPO [id number] 2021 Unknown [id number]. [id number] 2021 Unknown [id number] 1988 Unknown [id number] 2.16.840.1.330701.3.579.2. 1259 1988 Unknown [id number] 2.16840.1.567067.3.579.2 1988 Unknown [id number] 2.16840.1.962933.3.579.2 1988 Unknown [id number] 2.16.840.1.891097.3.579.2 1988 Unknown [id number] 2.16.840.1.195745.3.579.2 1988 Unknown [id number] 2.16.840.1.775096.3.579.27 1988 Unknown [id number] 2.16.840.1.552032.3.579.2 1988 Unknown [id number] 2.16.840.1.358958.3.579.2. 727 1988 Unknown [id number] 2.16.840.1.801778.3.579.2. 727 1988 Unknown [id number] 2.16.840.1.088031.3.579.2. 727 1988 Unknown [id number] 2.16.840.1.274849.3.579.2. 727 1988 Unknown [id number] 2.16.840.1.911335.3.579.2. 727 1988 Unknown [id number] 2.16.840.1.991954.3.579.2. 727 1988 Unknown [id number] 2.16.840.1.573343.3.579.2. 1259 1988 Unknown [id number] 2.16.840.1.361351.3.579.2. 9 1988 Unknown [id number] 2.16.840.1.168942.3.579.2. 1259 1988 Unknown [id number] 2.16.840.1.853070.3.579.2. 9 1988 Unknown [id number] 2.16.840.1.450700.3.579.2. 1259 Unknown [id number] Social History Date Type Detail Facility Start: 09-02-2012 End: 07-25-2024 Tobacco smoking status TNIS Never smoked tobacco [facility] Start: 09-02-2012 End: 06-08-2022 Alcohol intake Current non-drinker of alcohol (finding) [facility] Start: 1990 Sex Assigned At Female [facility] Exposure to SARS-CoV -2 (event) Yes [facility] Start: 10-12-2021 Tobacco use and exposure Smokeless tobacco non-user [facility] Tobacco smoking stat us [facility] Tobacco smoking consumption unknown [facility] Start: 01-29-2024 Gender identity Identifies as female gender (finding) [facility] Start: 01-29-2024 Sexual orientation Heterosexual (finding) [facility] Tobacco smoking status Never [facility] [place] Sex Assigned At Female [facility] Sexual Orientation [facility] Start: 02-07-2019 Sex Female (finding) [facility] Start: 02-08-2025 [facility] Clinical Notes 10-12-2021 to 05-12-2025 Arline Marcos, [facility] - 05/12/2025 9:50 AM EDJustin Ryder, [facility] - 04/21/2025 9:30 AM Fadi Marcos, [facility] - 04/21/2025 9:30 AM Rosa Dillard, [facility] - 03/27/2025 10:00 AM EDTRadiology Note Date & Type Note Facility 05-12-2025 History of Present illness Narrative Reason for [...] (polycystic ovarian syndrome) 02/24/2025 Positive urine test ([facility]) 02/24/2025 Resolved Ambulatory Problems Diagnosis Date [...] nursing note reviewed. Exam conducted with a internet cafe manager present. Vitals: There is no height or weight on file to calculate BMI. BP: 138/82 Patient's last menstrual period was 01/25/2025. ASSESSMENT & PLAN ICD-10-CM 1. Screening, , for anatomic survey ([facility]) Z36.89 US OB 14+ weeks anatomy scan US OB 14+ weeks anatomy scan 2. Well woman exam with routine gynecological exam Z01.419 Pap Smear HPV DNA probe, amplified 3. Second trimester ([facility]) Z34.92 POCT urinalysis dipstick manually resulted 4. 15 weeks gestation of ([facility]) Z3A.15 Alpha fetoprotein, maternal Alpha fetoprotein, maternal 5. STD exposure Z20.2 SURESWAB(R) ADVANCED VAGINITIS PLUS, TMA CHLAMYDIA TRACHOMATIS (GENITO/STI) Neisseria gonorrhea DNA probe, direct 6. Nausea R11.0 promethazine (Phenergan) 12.5 MG tablet Return OB/Annual Exam: Patient presents today for a annual exam/routine obstetrics appointment. Patient is currently 15w2d . Patient states she is doing well but has complaints of nausea in the morning. Pap and cultures was obtained without difficulty and patient was given orders for anatomy scan and msAFP to be obtained. Pt still having complaints of nausea and vomiting, rx for phenergan faxed to pharmacy. Pt to take phenergan and zofran. Pt to be referred to [facility] for vanishing twin and AMA [...] Del Rio DO documented in this encounter [facility] 04-21-2025 History of Present illness Narrative Reason for [...] (polycystic ovarian syndrome) 02/24/2025 Positive urine test ([facility]) 02/24/2025 Resolved Ambulatory Problems Diagnosis Date [...] HISTORY Past Surgical History: Procedure Laterality Date MINDY REVIEW OF SYSTEMS Review of Systems: Review [...] nursing note reviewed. Exam conducted with a internet cafe manager present. Vitals: There is no height or weight on file to calculate BMI. BP: Patient's last menstrual period was 01/25/2025. ASSESSMENT & PLAN ICD-10-CM 1. First trimester ([facility]) Z34.91 2. 13 weeks gestation of ([facility]) Z3A.13 New OB: Patient presents today for [...] or undercooked meat, and stay away from [facility]. Patient has been consulted regarding any further do's and don'ts of . Patient voiced understanding and all questions and concerns were answered. No orders of the defined types were placed in this encounter. Follow Up: Patient is to return in 4 weeks for routine OB appointment. Documented by Arline Marcos LPN on behalf of: Pee Del Rio DO documented in this encounter [facility] 03-27-2025 History of Present illness Narrative Reason for Appointment: Patient ID: Jason Coronel is a 35 y.o. female who presents for Amenorrhea Patient presents today for a Nurse OB Intake appointment. Patient is 8w5d with a Estimated Date of Delivery: 11/01/25 OB History Para Term AB Living 1 [...] (polycystic ovarian syndrome) 02/24/2025 Positive urine test ([facility]) 02/24/2025 Resolved Ambulatory Problems Diagnosis Date Noted [...] dipstick manually resulted , unspecified gestational age ([facility]) - Type and screen; Future - ABO/Rh; Future - CBC and differential - Hemoglobin A1c - RPR - Rubella antibody, IgG - Hepatitis B surface antigen - Hepatitis C antibody - HIV-1 and HIV-2 antibodies - Rapid drug screen, urine; Future - OB transvaginal; Future Encounter for supervision of normal first in first trimester ([facility]) - Rapid drug screen, urine; Future - [...] or undercooked meat, and stay away from [facility]. Patient has also been advised to not [...] aware she will need to wait for [place] labs to be given until verified. Script [...] Kyra Dillard LPN documented in this encounter [facility] 12-22-2024 Evaluation + Plan note Diagnostic Tests PendingDHEA 12/22/24 [facility] 11-24-2024 Note Nurse Consultation N ote [...] Recorded 2024-05-01: VIS DATE: 04/22/2021 SARS-CoV-2 (COVID-19) [id number].[id number] 09/15/2022 Recorded influenza virus vaccine, inactivated 07/10/2022 [...] Recorded hepatitis B pediatric vaccine 02/15/1999 Recorded [facility] 11-24-2024 Evaluation + Plan note Diagnostic Tests PendingProgesterone Level 11/24/24 [facility] 11-04-2024 History of Present illness Narrative [...] nursing note reviewed. Exam conducted with a internet cafe manager present. Vitals: There is no height or [...] Del Rio DO documented in this encounter [facility] 07-25-2024 Note Patient Education Genetic Medicine Diet for Metabolic Syndrome Metabolic syndrome is a disorder that includes three or more of the following conditions: ??? Abdominal obesity, as seen in a large waist measurement. ??? Too much sugar (glucose) in your blood. ??? High blood pressure (hypertension). ??? Uetani-kaad-zszbci amount of fat (lipids) in your blood. ??? Oihvc-dxpk-wxjpfp level of good cholesterol (HDL). Keeping an [...] Berries. Apples. Oranges. Peaches. Apricots. Plums. Grapes. Bari. Papaya. Pomegranate. Kiwi. Cherries. Vegetables Lettuce. Spinach. Leafy greens, including kale, chard, zoe greens, and mustard greens. Peas. Beets. Cauliflower. Cabbage. Broccoli. Carrots. Green beans. Tomatoes. Squash. Eggplant. Peppers. Onions. Cucumbers. [place] sprouts. Sweet potatoes. Yams. Beans. Lentils. Grains [...] fats, nuts, a (more content not included)... [facility] 06-08-2022 Note HNO ID: [id number] Author: Angelia Mccarthy MD Service: ? Author [...] Mccarthy MD June 08, 2022 8:13 AM [facility] 06-08-2022 History of Present illness Narrative Patient [...] 2022 8:13 AM documented in this encounter [facility] 10-12-2021 Note HNO ID: [id number] Author: Jennie Gamez OD Service: ? Author Type: WHARF TENDER HELPER Type: Progress Notes Filed: 10/18/2021 1:30 PM [...] with all of its relevant components. Jennie Gamez, LIAM [facility] Evaluation + Plan note Future Appointments Appointment Date:11/11/2024 12:00:00 PM Scheduled Provider: Location:.[facility] Appointment Type:US Abdominal/Pelvis (FT) Diagnostic Tests PendingLuteinizing Hormone 11/05/24FSH Level 11/05/24DHEA 11/05/24DHEAS 11/05/24Anti-Mullerian Hormone (AMH) 11/05/24 Future Scheduled TestsUS Pelvis Non-OB Complete 11/11/24US Transvaginal Non-OB 11/11/24 [facility] Evaluation note Diagnosis Myopic astigmatism of both eyes- Primary Refractive error Unspecified disorder of refraction and accommodation [facility] Encounter for infertility PCOS (polycystic ovarian syndrome) Polycystic ovaries Abnormal uterine bleeding (AUB) Hormone disorder Unspecified endocrine disorder documented in this encounter [facility] HealthcareEvaluation note* Diagnosis Missed menses , unspecified gestational age ([facility]) Encounter for supervision of normal first in first trimester ([facility]) Nausea Nausea alone documented in this encounter [facility] HealthcareEvaluation note* Diagnosis First trimester ([facility]) state, incidental 13 weeks gestation of ([facility]) documented in this encounter [facility] HealthcareEvaluation note* Diagnosis Screening, , for anatomic survey ([facility]) Encounter for anatomic survey Well woman exam with routine gynecological exam Routine gynecological examination Second trimester ([facility]) state, incidental 15 weeks gestation of ([facility]) STD exposure Nausea Nausea alone documented in this encounter [facility] HealthcareHospital course Narrative No data available for this section [facility] Hospital Discharge instructions No data available for this section [facility] Progress note No data available for this section [facility] Summary Purpose Family History No Family [...] section and content) DATE CREATED AUTHOR 03/11/2018 [facility] ical Center DATE CREATED AUTHOR AUTHOR'S ORGANIZ ATION 09/03/2021 [facility] DATE CREATED AUTHOR AUTHOR'S ORGANIZ ATION 06/18/2022 [facility] DATE CREATED AUTHOR AUTHOR'S ORGANIZ ATION 08/17/2022 [facility] DATE CREATED AUTHOR AUTHOR'S ORGANIZ ATION 04/24/2024 [facility] DATE CREATED AUTHOR AUTHOR'S ORGANIZ ATION 11/06/2024 [facility] DATE CREATED AUTHOR AUTHOR'S ORGANIZ ATION 11/07/2024 [facility] ical Center DATE CREATED AUTHOR AUTHOR'S ORGANIZ ATION 11/09/2024 [facility] DATE CREATED AUTHOR AUTHOR'S ORGANIZ ATION 11/12/2024 [facility] DATE CREATED AUTHOR AUTHOR'S ORGANIZ ATION 12/06/2024 [facility] DATE CREATED AUTHOR AUTHOR'S ORGANIZ ATION 12/24/2024 [facility] DATE CREATED AUTHOR AUTHOR'S ORGANIZ ATION 01/27/2025 [facility] DATE CREATED AUTHOR AUTHOR'S ORGANIZ ATION 04/23/2025 [facility] [employer] Comments (unrecognize d section and content) In the event this informatio n is protected by the Federal Confidentiality of Alcohol and Drug Abuse Patient Records regulations: The Federal rules restrict any use of the information to criminally investigate or prosecute any alcohol or drug abuse patient.[facility] the event this information is protected by the Federal Confidentiality of Alcohol and Drug Abuse Patient Records regulations: The Federal rules restrict any use of the information to criminally investigate or prosecute any alcohol or drug abuse patient.[facility] Teams (unrecognized sec tion and content) Experience Planning Strategist Relationship Specialty Start Date End Date Li Guillen [id number] [place] [address] PCP - General 09/02/12 Experience Planning Strategist Relationship Specialty Start Date End Date Li Guillen [id number] [place] [address] PCP - General 09/02/12 Reason for Visit (unrecogniz ed section and content) Reason Comments Refractive evaluation BLURRED [facility] OU Reason Comments Infertility Pt present today to discuss fertility Reason Comments Amenorrhea Reason Comments Routine Visit FOR RECORDS PERTAINING TO PATIENTS WHO ARE [...] BE BASED ON THE PRIMARY CLINICAL RECORDS. [facility] provides no warranty or guarantee of the accuracy or completeness of information in this document.
--- OUTSIDE RECORDS SUMMARY | 2025-05-12 15:08 | XMS_ITS | CCD ---
Author Organization [facility] Care Team Providers Care Radon Inspector Name Role Phone Giovany Josue Unavailable Unavail [...] 250 mg by mouth once daily. levonorgestrel 0.977093 mg/hr intrauterine system (1 source) Progestin, Progestin-containing [...] 30 tab(s), Refills(s) 0, Pharmacy: [facility] 1155, 166, cm, 07/25/24 9:47:00 EST, Height/Length [...] Comment on above: Take 1 tablet by [facility] twice daily. triamcinolone acetonide 0.001 mg/mg topical [...] UA Negative Negative - 1999(110) ++++ mg/dL [facility] Interpretation and review of laboratory results Abnormal [facility] Ketones, UA Negative Negative - 160(16) ++++ mg/dL [facility] Leukocytes, UA Negative Negative - 500+++ Roberta/mcL [facility] Nitrite, UA Negative Negative - Positive [facility] pH, UA 1 5 - 9 [facility] Protein, UA Negative Negative - 1999(20) ++++ mg/dL [facility] Spec Grav, UA 1.015 1 - 1.03 [facility] Urobilinogen, UA 0.2 0.2 - 12 mg/dL [facility] BOX TESTon 05-05-2025 BOX TEST SENT OUT YES [facility] BOX1 UNITY [facility] BOX2 05/05/25 [facility] US OB TRANSVAGINALon 2 025 US OB [...] II, MD, PHD at 08-Apr-2025 10:16:34 AM [facility] Normal Not Available Comment on above: Order Comment: US OB VIABILITY PLEASE PERFORM TRANSVAGINAL ULTRASOUND IF INDICATED Patient's last menstrual period was 01/25/2025. HCG ( test) Ql (U)o n 03-27-2025 Interpretation and review of laboratory results Abnormal [facility] Preg Test, Ur Positive Negative [facility] US OB TRANSVAGINALon 025 US [...] Negative Negative - 4(70) +++ mg/dL [facility] Blood, UA Negative Negative - 50 Jerry/mcL [facility] Clarity, UA Clear [facility] Color, UA Yellow [facility] Glucose, UA Negative Negative - 1999(110) ++++ mg/dL [facility] Interpretation and review of laboratory results Normal [facility] Ketones, UA Negative Negative - 160(16) ++++ mg/dL [facility] Leukocytes, UA Negative Negative - 500+++ Roberta/mcL [facility] Nitrite, UA Negative Negative - Positive [facility] pH, UA 6 5 - 9 [facility] Protein, UA Negative Negative - 1999(20) ++++ mg/dL [facility] Spec Grav, UA 1.025 1 - 1.03 [facility] Urobilinogen, UA 0.2 0.2 - 12 mg/dL [facility] PREG QUANT HCGon 025 HCG QUANTITATIVE 780 mIU/mL [facility] Comment on above: 5-50 0.2-1 WEEK 50-500 1-2 WEEKS 100-5,000 2-3 WEEKS 500-10,000 3-4 WEEKS 1,000-50,000 4-5 WEEKS 10,000-100,000 5-6 WEEKS 15,000-200,000 6-8 WEEKS 10,000-100,000 2-3 MONTHS [facility] PREG QUANT HCGon 025 HCG QUANTITATIVE 308 mIU/mL [facility] Comment on above: 5-50 0.2-1 WEEK 50-500 1-2 WEEKS 100-5,000 2-3 WEEKS 500-10,000 3-4 WEEKS 1,000-50,000 4-5 WEEKS 10,000-100,000 5-6 WEEKS 15,000-200,000 6-8 WEEKS 10,000-100,000 2-3 MONTHS [facility] ALL PROGESTERONEon 5 PROGESTERONE 17.3 ng/mL . [facility] Comment on above: Follicular phase 0.1 - 0.9 Luteal phase 1.8 - 23.9 Ovulation phase 0.1 - 12.0 First trimester 11.0 - 44.3 Second trimester 25.4 - 83.3 Third trimester 58.7 - 214.0 Postmenopausal 0.0 - 0.1 Performed at: [facility] [address] [id number] Field Service Analyst: Evan Valenzuela PhD, Phone: [phone] [facility] DHEAon 12-30-2024 DHEA [Mass/Vol] 139 ng/dL Invalid Interpretation Code 31-701 [place] Comment on above: Result Comment: This test was developed and its performance characteristics determined by [facility]. It has not been cleared or approved by the Food and Drug Administration. Performed at: [facility] [id number] MD Everett Buckner Performed By: #### 1 [id number] #### [facility] [address] [place] [address] Progesteroneon 11-25-2024 Progesterone Lvl 5.59 ng/mL Invalid Interpretation Code [place] Comment on above: Result Comment: 'F N ON FOLLICULAR = 0.10 - 0.60' 'LUTEAL = 3.00 - 17.5' 'MIDLUTEAL = 3.30 - 18.6' 'POST-MENOPAUSE = 0.10 - 0.40' '-FIRST TRIMESTER = 8.30 - 66.5' 'SECOND TRIMESTER = 18.9 - 66.1' 'THIRD TRIMESTER = 35.8 - 312.4' 'MALES = 0.14 - 2.06' Performed By: #### 2 [id number] #### [facility] [address] [place] [address] US Pelvis Non-OB Completeon 11-12-2024 US Pelvis [...] MD Transcribed by: MARVA Technologist: Norman CLEMENS [place] US Transvaginal Non-OBon US Transvaginal Non-OB Exam Date/Time: 11/11/2024 12:54 EST Reason for Exam: E28.2 Report See ultrasound pelvis non-OB for report of ultrasound pelvis transvaginal. Ordering Provider: Pee DEL RIO FINAL REPORT Dictated: 11/12/2024 12:14 pm Desmond Quinteros MD Signed (Electronic Signature): 11/12/2024 12:14 pm Signed by: Desmond Quinteros MD Transcribed by: MARVA Technologist: Norman CLEMENS [place] Anti-Mullerian Hormone (AMH) on 11-10-2024 Mullerian inhibiting substance [Mass/Vol] 5.77 ng/mL Invalid Interpretation Code [place] Comment on above: Result Comment: For assays employing antibodies, the possibility exists for interference by heterophile antibodies in the samples.1 1.Andre Reed Interferences in Immunoassays - still a threat. Clin. Chem. 2000; 46: 3687-5396. This test was developed and its performance characteristics determined by [facility]. It has not been cleared or approved by the Food and Drug Administration. Reference Range: Females 36 - 40y: 0.42 - 8.34 Median 1.69 AMH concentrations of >= 1.06 ng/mL is correlated with a better response to ovarian stimulation, produced more retrievable oocytes and higher odds of live according to Gloria et al. Fertility and Sterility. 2010: 94:4500-2469. The current AMH test method correlates with [...] exclude an AMH-secreting ovarian tumor. Performed at: [facility] [place], [place] [id number] MD Rajeev Lala Performed By: #### 1 [id number] #### [facility] [address] [place] [address] DHEAon 11-10-2024 DHEA [Mass/Vol] 101 ng/dL Invalid Interpretation Code 63-254 [place] Comment on above: Result Comment: This test was developed and its performance characteristics determined by [facility]. It has not been cleared or approved by the Food and Drug Administration. Performed at: [address] [id number] MD Everett Buckner Performed By: #### 1 [id number] #### [facility] [address] [place] [address] DHEASon 11-10-2024 DHEA-S [Mass/Vol] 91.8 microgram/dL Invalid Interpretation Code 57.3-279.2 [place] Comment on above: Result Comment: Perf ormed at: [facility] [address] [place], [place] [id number] PhD Bianca Gordon Performed By: #### 1 [id number] #### [facility] [address] [place] [address] FSHon 11-07-2024 Follitropin Qn 5.2 m[IU]/mL Invalid Interpretation Code [place] Comment on above: Result Comment: Adul t Female Range Follicular phase 3.5 - 12.5 Ovulation phase 4.7 - 21.5 Luteal phase 1.7 - 7.7 Postmenopausal 25.8 - 134.8 Performed at: [facility] [address] [place], [place] [id number] PhD Bianca Gordon Performed By: #### 2 [id number] #### [facility] [address] [place] [address] LHon 11-07-2024 Lutropin Qn 11.1 m[IU]/mL Invalid Interpretation Code [place] Comment on above: Result Comment: Adul t Female Range Follicular phase 2.4 - 12.6 Ovulation phase 14.0 - 95.6 Luteal phase 1.0 - 11.4 Postmenopausal 7.7 - 58.5 Performed at: [facility] [address] [place], [place] [id number] PhD Bianca Gordon Performed By: #### 2 [id number] #### [facility] [address] [place] [address] BhCG Quanton 11-05-2024 HCG.beta subunit Qn m[IU]/mL Normal 1-3 [facility] Comment on above: Result Comment: 'F N ON < 1 - 3' ' 0.2 - 1 WEEK = 5 TO 50' ' 1 - 2 WEEKS = 50 - 500' ' 2 - 3 WEEKS = 100 - 5000' ' 3 - 4 WEEKS = 500 - 30291' ' 4 - 5 WEEKS = 1000 - 03484' ' 5 - 6 WEEKS = 99057 - 935978' ' 6 - 8 WEEKS = 29135 - 341199' ' 8 - 12 WEEKS = 50227 - 195156' Performed By: #### 2 [id number] #### [facility] [address] [place] [address] CBC w/ Auto Diffon 5 Basophils/100 WBC (Bld) 0.6 % Normal 0.0-2.0 [place] Comment on above: Performed By: #### 2 815024 #### [facility] [address] [place] [address] Basophils/Leukocytes Auto (Bld) [Pure # fraction] 0.0 E9/L Normal 0.0-0.2 [place] Comment on above: Performed By: #### 2 730551 #### [facility] [address] [place] [address] Eosinophils (Bld) [#/Vol] 0.1 E9/L Normal 0.0-0.5 [place] Comment on above: Performed By: #### 2 [id number] #### [facility] [address] [place] [address] Eosinophils/100 WBC (Bld) 0.7 % Normal 0.0-8.0 [place] Comment on above: Performed By: #### 2 771991 #### [facility] [address] [place] [address] Erythrocyte distribution width (RBC) [Ratio] 14.0 % Normal 10.9-14.2 [place] Comment on above: Performed By: #### 2 253112 #### [facility] [address] [place] [address] Hematocrit (Bld) [Volume fraction] 44.7 % Normal 34.0-46.0 [place] Comment on above: Performed By: #### 2 279055 #### [facility] [address] [place] [address] Hemoglobin (Bld) [Mass/Vol] 15.0 g/dL Normal 12.0-16.0 [place] Comment on above: Performed By: #### 2 893534 #### [facility] [address] [place] [address] Lymphocytes (Bld) [#/Vol] 2.3 E9/L Normal 1.0-4.0 [place] Comment on above: Performed By: #### 2 818567 #### [facility] [address] [place] [address] Lymphocytes/100 WBC (Bld) 26.2 % Normal 14.0-50.0 [place] Comment on above: Performed By: #### 2 979945 #### [facility] [address] [place] [address] MCH (RBC) [Entitic mass] 27.3 pg Normal 27.0-34.0 [place] Comment on above: Performed By: #### 2 524110 #### [facility] [address] [place] [address] MCHC (RBC) [Mass/Vol] 33.5 g/dL Normal 31.4-36.0 [facility] Comment on above: Performed By: #### 2 459361 #### [facility] [address] [place] [address] MCV (RBC) [Entitic vol] 81.3 fL Normal 80.0-100.0 [place] Comment on above: Performed By: #### 2 759078 #### [facility] [address] [place] [address] Monocytes (Bld) [#/Vol] 0.5 E9/L Normal 0.2-1.0 [place] Comment on above: Performed By: #### 2 191697 #### [facility] [address] [place] [address] Neutrophils (Bld) [#/Vol] 5.7 E9/L Normal 2.0-7.5 [place] Comment on above: Performed By: #### 2 054034 #### [facility] [address] [place] [address] Neutrophils/100 WBC (Bld) 66.3 % Normal 36.0-75.0 [place] Comment on above: Performed By: #### 2 272166 #### [facility] [address] [place] [address] Platelet mean volume (Bld) [Entitic vol] 7.5 fL Normal 6.4-10.8 [place] Comment on above: Performed By: #### 2 760277 #### [facility] [address] [place] [address] Platelets (Bld) [#/Vol] 302.0 E9/L Normal 150.0-500.0 [place] Comment on above: Performed By: #### 2 952803 #### [facility] [address] [place] [address] RBC (Bld) [#/Vol] 5.5 E12/L Normal 4.3-5.9 [place] Comment on above: Performed By: #### 2 190542 #### [facility] [address] [place] [address] WBC corrected for nucl RBC Auto (Bld) [#/Vol] 8.6 E9/L Normal 4.0-11.0 [facility] Comment on above: Performed By: #### 2 911535 #### [facility] [address] [place] [address] CHEMISTRYOrdered By: SYSTEM SYSTEM on 11-05-2024 Free [...] 3 - 4 WEEKS = 500 - 22284' ' 4 - 5 WEEKS = 1000 - 55878' ' 5 - 6 WEEKS = 51022 - 181200' ' 6 - 8 WEEKS = 12163 - 957711' ' 8 - 12 WEEKS = 98094 - 442615' TSH Qn 0.99 m[IU]/L Normal 0.34 - 5.60 mcIU/mL [facility] CHEMISTRYOrdered By: Catherine Armenta on 11-05-2024 HbA1c (Bld) [Mass fraction] 5.3 % Normal <=5.9% [facility] ChemAutoSS Free T4on 11-05-2024 Free T4 [Mass/Vol] 0.89 ng/dL Normal 0.58-1.64 [place] Comment on above: Performed By: #### 2 [id number] #### [facility] [address] [place] [address] HEMATOLOGYOrdered By: SYSTEM SYSTEM on 11-05-2024 Basophils/100 [...] Normal 4.0 - 11.0 E9/L Remisol Heme RvaB5tim 11-05-2024 HbA1c (Bld) [Mass fraction] 5.3 % Normal <=5.9 [place] Comment on above: Performed By: #### 7 [id number] #### [facility] [address] [place] [address] Lab Miscellaneous-LCon 11-05 Lab Miscellaneous orderable test Invalid Interpretation Code [place] Comment on above: Performed By: #### 1 [id number] #### [facility] [address] [place] [address] Lab Miscellaneous Orderable test Invalid Interpretation Code [place] Comment on above: Performed By: #### 1 [id number] #### [facility] [address] [place] [address] Lab Miscellaneous Orderable test Invalid Interpretation Code [place] Comment on above: Performed By: #### 1 [id number] #### [facility] [address] [place] [address] Test Code 91210 Invalid Interpretation Code [place] Comment on above: Performed By: #### 1 [id number] #### [facility] [address] [place] [address] Test Code 792359 Invalid Interpretation Code [place] Comment on above: Performed By: #### 1 [id number] #### [facility] [address] [place] [address] Test Name DHEA Invalid Interpretation Code [place] Comment on above: Performed By: #### 1 [id number] #### [facility] [address] [place] [address] Test Name AMH Invalid Interpretation Code [place] Comment on above: Performed By: #### 1 [id number] #### [facility] [address] [place] [address] Laboratory - Chemistry and C hemistry - challengeOrdered By: Maria Luisa Lutz on 11-05-2024 Sodium [Moles/Vol] 24763 mmol/L Invalid Interpretation Code [facility] No Panel InformationOrdered By: Leia Foote on 11-05-2024 Lab Miscellaneous orderable test Invalid Interpretation Code [facility] No Panel InformationOrdered By: Maria Luisa Lutz on 11-05-2024 Test Name DHEA Invalid Interpretation Code [facility] Reference Laboratory Testing Ordered By: Maria Luisa Lutz on 11-05-2024 Sodium [Moles/Vol] 768208 mmol/L Invalid Interpretation Code [facility] Test Name AMH Invalid Interpretation Code [facility] SendOutsSS TSHon 11-05-2024 TSH Qn 0.99 m[IU]/L Normal 0.34-5.60 [place] Comment on above: Performed By: #### 2 628335 #### [facility] [address] [place] [address] Family Medicine Office/Clini c Noteon 07-25-2024 Family [...] SEGOVIA CNP, FAM Within 4 weeks [address] [place] [address] Business (1) Additional Instructions: Weight [...] Recorded 2024-05-01: VIS DATE: 04/22/2021 SARS-CoV-2 (COVID-19) mRNAMUL.[id number] 09/15/2022 Recorded influenza virus vaccine, inactivated 07/10/2022 [...] ASHISH SEGOVIA CNP, FAM Within [address] [place] [address] Business (1) Additional Instructions: Weight management [...] Recorded 2024-05-01: VIS DATE: 04/22/2021 SARS-CoV-2 (COVID-19) mRNAMUL.ORD![id number] 09/15/2022 Recorded influenza virus vaccine, inactivated 07/10/2022 Recorded 2024-05-01: NULL diphtheria/pertussis , acel/tetanus adult 02/06/2022 Recorded 2024-05-01: VIS DATE: 04/22/2021 influenza virus vaccine, inactivated 09/08/2021 Recorded SARS-CoV-2 (COVID-19) (more content not included)... Normal [place] Comment on above: Result Comment: Elec tronically [...] for choosing us for your care. Normal [facility] [facility]/Clini c Noteon 05-01-2024 Family [...] Recorded 2024-05-01: VIS DATE: 04/22/2021 SARS-CoV-2 (COVID-19) mRNAMUL.ORD![id number] 09/15/2022 Recorded influenza virus vaccine, inactivated 07/10/2022 [...] 05/11/2011 Recorde (more content not included)... Normal [place] Comment on above: Result Comment: Elec tronically [...] for choosing us for your care. Norman [facility]/Clini c Noteon 03-25-2024 Family [...] answered. RTC as needed Ordered: Removal IUD 45840 2. BMI 32.0-32.9,adult (Z68.32: Body mass index [...] influenza virus vaccine, inactivated 06/29/2020 Recorded Normal [place] Comment on above: Result Comment: Elec tronically Signed By: Brianna Lawson\.luis\Date and Time Signed: 03/25/24 13:14 EDT CBC w/ Auto Diffon 4 Basophils/100 WBC (Bld) 0.5 % Normal 0.0-2.0 [place] Comment on above: Performed By: #### 2 501657, 16031275, 8564276, 8261896 #### [facility] [address] [place] [address] Basophils/Leukocytes Auto (Bld) [Pure # fraction] 0.0 E9/L Normal 0.0-0.2 [place] Comment on above: Performed By: #### 2 723694, 45756080, 8345671, 1315740 #### [facility] [address] [place] [address] Eosinophils (Bld) [#/Vol] 0.1 E9/L Normal 0.0-0.5 [place] Comment on above: Performed By: #### 2 243301, 32216864, 9337327, 1264050 #### [facility] [address] [place] [address] Eosinophils/100 WBC (Bld) 0.8 % Normal 0.0-8.0 [place] Comment on above: Performed By: #### 2 715895, 40198218, 5932357, 8550530 #### [facility] [address] [place] [address] Erythrocyte distribution width (RBC) [Ratio] 13.6 % Normal 10.9-14.2 [place] Comment on above: Performed By: #### 2 249975, 74836129, 8773391, 2328003 #### [facility] [address] [place] [address] Hematocrit (Bld) [Volume fraction] 46.6 % High 34.0-46.0 [place] Comment on above: Performed By: #### 2 893069, 84959019, 9062724, 4815004 #### [facility] [address] [place] [address] Hemoglobin (Bld) [Mass/Vol] 15.6 g/dL Normal 12.0-16.0 [place] Comment on above: Performed By: #### 2 215152, 67041466, 6624153, 7552859 #### [facility] [address] [place] [address] Lymphocytes (Bld) [#/Vol] 2.3 E9/L Normal 1.0-4.0 [place] Comment on above: Performed By: #### 2 039514, 94916707, 8259161, 1008277 #### [facility] [address] [place] [address] Lymphocytes/100 WBC (Bld) 28.3 % Normal 14.0-50.0 [place] Comment on above: Performed By: #### 2 870981, 00789395, 8194401, 1345192 #### [facility] [address] [place] [address] MCH (RBC) [Entitic mass] 28.4 pg Normal 27.0-34.0 [place] Comment on above: Performed By: #### 2 037489, 66963622, 1406393, 2964071 #### [facility] [address] [place] [address] MCHC (RBC) [Mass/Vol] 33.5 g/dL Normal 31.4-36.0 [facility] Comment on above: Performed By: #### 2 169186, 24321638, 8434499, 5719651 #### [facility] [address] [place] [address] MCV (RBC) [Entitic vol] 84.7 fL Normal 80.0-100.0 [place] Comment on above: Performed By: #### 2 980696, 07668032, 5645003, 1254184 #### [facility] [address] [place] [address] Monocytes (Bld) [#/Vol] 0.6 E9/L Normal 0.2-1.0 [place] Comment on above: Performed By: #### 2 310379, 11310376, 2146723, 3919994 #### [facility] [address] [place] [address] Neutrophils (Bld) [#/Vol] 5.2 E9/L Normal 2.0-7.5 [facility] Comment on above: Performed By: #### 2 620463, 71485115, 7336293, 2458110 #### [facility] [address] [place] [address] Neutrophils/100 WBC (Bld) 63.4 % Normal 36.0-75.0 [place] Comment on above: Performed By: #### 2 003931, 85850111, 9443017, 2430760 #### [facility] [address] [place] [address] Platelet mean volume (Bld) [Entitic vol] 7.1 fL Normal 6.4-10.8 [facility] Comment on above: Performed By: #### 2 349307, 66336627, 5270695, 6589240 #### [facility] [address] [place] [address] Platelets (Bld) [#/Vol] 287.0 E9/L Normal 150.0-500.0 [facility] Comment on above: Performed By: #### 2 010962, 23932075, 8787116, 6433646 #### [facility] [address] [place] [address] RBC (Bld) [#/Vol] 5.5 E12/L Normal 4.3-5.9 [facility] Comment on above: Performed By: #### 2 449716, 79837822, 4864963, 4285151 #### [facility] [address] [place] [address] WBC corrected for nucl RBC Auto (Bld) [#/Vol] 8.2 E9/L Normal 4.0-11.0 [facility] Comment on above: Performed By: #### 2 917860, 46312048, 8373606, 9469169 #### [facility] [address] [place] [address] CMPon 01-12-2024 Calcium [Mass/Vol] 9.2 mg/dL Normal 8.9-11.1 [place] Comment on above: Performed By: #### 2 119700, 83076788, 7673863, 8247366 #### [facility] [address] [place] [address] Chloride [Moles/Vol] 105 mmol/L Normal 101-111 [facility] Comment on above: Performed By: #### 2 355089, 42933687, 7668643, 0447753 #### [facility] [address] [place] [address] Glucose [Mass/Vol] 89 mg/dL Normal 55-199 [place] Comment on above: Performed By: #### 2 300002, 35991074, 9938177, 5290701 #### [facility] [address] [place] [address] Potassium [Moles/Vol] 3.9 mmol/L Normal 3.5-5.3 [facility] Comment on above: Performed By: #### 2 760113, 32801399, 0876863, 5081117 #### [facility] [address] [place] [address] Sodium [Moles/Vol] 138 mmol/L Normal 135-145 [place] Comment on above: Performed By: #### 2 245612, 54615348, 6552218, 9134099 #### [facility] [address] [place] [address] Urea nitrogen [Mass/Vol] 15 mg/dL Normal 5-21 [facility] Comment on above: Performed By: #### 2 873961, 65532410, 8554822, 6183381 #### [facility] [address] [place] [address] Anion gap [Moles/Vol] 12 mmol/L Normal 6-16 [facility] Comment on above: Performed By: #### 2 055034, 07138983, 1689563, 8329597 #### [facility] [address] [place] [address] CO2 [Moles/Vol] 25 mmol/L Normal 21-31 [facility] Comment on above: Performed By: #### 2 313639, 29466569, 6231728, 8806877 #### [facility] [address] [place] [address] Creatinine [Mass/Vol] 0.7 mg/dL Normal 0.5-1.3 [facility] Comment on above: Performed By: #### 2 091821, 87504738, 3429969, 0737822 #### [facility] [address] [place] [address] Urea nitrogen/Creatinine [Mass ratio] 21 No Units High 10-20 [facility] Comment on above: Performed By: #### 2 471526, 61398010, 1728265, 5900477 #### [facility] [address] [place] [address] Albumin [Mass/Vol] 4.3 g/dL Normal 3.3-5.0 [facility] Comment on above: Performed By: #### 2 978676, 23309106, 5593721, 9808136 #### [facility] [address] [place] [address] Albumin/Globulin (S) [Mass conc ratio] 1.4 Normal 1.1-2.2 [facility] Comment on above: Performed By: #### 2 281977, 56593321, 7392259, 2098775 #### [facility] [address] [place] [address] ALP [Catalytic activity/Vol] 64 Int._Unit/L Normal 21-98 [facility] Comment on above: Performed By: #### 2 602961, 61046421, 2742834, 0404867 #### [facility] [address] [place] [address] ALT No additional P-5'-P [Catalytic activity/Vol] 11 Int._Unit/L Normal 6-46 [facility] Comment on above: Performed By: #### 2 681404, 94979721, 4652346, 0561576 #### [facility] [address] [place] [address] AST [Catalytic activity/Vol] 13 Int._Unit/L Normal 5-43 [facility] Comment on above: Performed By: #### 2 782611, 84966736, 1763533, 2723237 #### [facility] [address] [place] [address] Bilirubin [Mass/Vol] 0.5 mg/dL Normal 0.0-1.1 [facility] Comment on above: Performed By: #### 2 934397, 19050560, 5027013, 1964507 #### [facility] [address] [place] [address] Globulin (S) [Mass/Vol] 3.1 g/dL Normal 1.4-4.0 [facility] Comment on above: Performed By: #### 2 [id number], [id number], [id number], [id number] #### [facility] [address] [place] [address] Protein [Mass/Vol] 7.4 g/dL Normal 6.0-7.8 [facility] Comment on above: Performed By: #### 2 [id number], [id number], [id number], [id number] #### [facility] [address] [place] [address] Consent for Treatmenton 12-17 Consent for Treatment [id number] #1.00TIFF Normal [facility] Lipid Panelon 01-12-2024 Cholesterol [Mass/Vol] 206 mg/dL High 120-200 [facility] Comment on above: Performed By: #### 2 [id number], [id number], [id number], [id number] #### [facility] [address] [place] [address] Cholesterol in HDL [Mass/Vol] 58 mg/dL Invalid Interpretation Code [facility] Comment on above: Result Comment: '>= 60 LOW RISK' '<= 40 HIGH RISK' Performed By: #### 2 [id number], [id number], [id number], [id number] #### [facility] [address] [place] [address] Cholesterol in LDL [Mass/Vol] 150 mg/dL High <=129 [facility] Comment on above: Performed By: #### 2 [id number], [id number], [id number], [id number] #### [facility] [address] [place] [address] Cholesterol in VLDL [Mass/Vol] 16 mg/dL Normal 7-40 [facility] Comment on above: Performed By: #### 2 [id number], [id number], [id number], [id number] #### [facility] [address] [place] [address] Triglyceride [Mass/Vol] 79 mg/dL Normal <=149 [facility] Comment on above: Performed By: #### 2 [id number], [id number], [id number], [id number] #### [facility] [address] [place] [address] Physician Orderon 01-12-2024 Physician Order [id number] 40#1.00TIFF Normal [facility] eGFRon 01-12-2024 eGFR 115 mL/min/1.73 m2 Normal >=59 [facility] Comment on above: Order Comment: Order added by Discern Expert. Performed By: #### 2 [id number], [id number], [id number], [id number] #### [facility] [address] [place] [address] CBC With Platelet and Differ entialon 08-16-2022 Basophils (Bld) [#/Vol] 0.1 10*3/uL Normal 0.0-0.2 [facility] Comment on above: Performed By: #### C BCWD #### [facility] [address] [place] [address] Basophils/100 WBC (Bld) 0.7 % Normal [facility] Comment on above: Performed By: #### C BCWD #### [facility] [address] [place] [address] Eosinophils (Bld) [#/Vol] 0.1 10*3/uL Normal 0.0-0.7 [facility] Comment on above: Performed By: #### C BCWD #### [facility] [address] [place] [address] Eosinophils/100 WBC (Bld) 1.0 % Normal [facility] Comment on above: Performed By: #### C BCWD #### [facility] [address] [place] [address] Erythrocyte distribution width (RBC) [Ratio] 13.5 % Normal 11.5-14.5 [facility] Comment on above: Performed By: #### C BCWD #### [facility] [address] [place] [address] Hematocrit (Bld) [Volume fraction] 44.1 % Normal 37.0-47.0 [facility] Comment on above: Performed By: #### C BCWD #### [facility] [address] [place] [address] Hemoglobin (Bld) [Mass/Vol] 14.9 g/dL Normal 12.0-16.0 [facility] Comment on above: Performed By: #### C BCWD #### [facility] [address] [place] [address] Lymphocytes (Bld) [#/Vol] 2.3 10*3/uL Normal 1.0-4.8 [facility] Comment on above: Performed By: #### C BCWD #### [facility] [address] [place] [address] Lymphocytes/100 WBC (Bld) 28.7 % Normal [facility] Comment on above: Performed By: #### C BCWD #### [facility] [address] [place] [address] MCH (RBC) [Entitic mass] 28.4 pg Normal 27.0-31.3 [facility] Comment on above: Performed By: #### C BCWD #### [facility] [address] [place] [address] MCHC 33.8 % Normal 33.0-37.0 [facility] Comment on above: Performed By: #### C BCWD #### [facility] [address] [place] [address] MCV (RBC) [Entitic vol] 84.2 fL Normal 79.4-94.8 [facility] Comment on above: Performed By: #### C BCWD #### [facility] [address] [place] [address] Monocytes (Bld) [#/Vol] 0.5 10*3/uL Normal 0.2-0.8 [facility] Comment on above: Performed By: #### C BCWD #### [facility] [address] [place] [address] Monocytes/100 WBC (Bld) 6.8 % Normal [facility] Comment on above: Performed By: #### C BCWD #### [facility] [address] [place] [address] Neutrophils (Bld) [#/Vol] 5.0 10*3/uL Normal 1.4-6.5 [facility] Comment on above: Performed By: #### C BCWD #### [facility] [address] [place] [address] Neutrophils/100 WBC (Bld) 62.8 % Normal [facility] Comment on above: Performed By: #### C BCWD #### [facility] [address] [place] [address] Platelets (Bld) [#/Vol] 271 10*3/uL Normal 130-400 [facility] Comment on above: Performed By: #### C BCWD #### [facility] [address] [place] [address] RBC (Bld) [#/Vol] 5.23 10*6/uL Normal 4.20-5.40 [facility] Comment on above: Performed By: #### C BCWD #### [facility] [address] [place] [address] WBC (Bld) [#/Vol] 7.9 10*3/uL Normal 4.8-10.8 [facility] Comment on above: Performed By: #### C BCWD #### [facility] [address] [place] [address] Comprehensive Metabolic Pane chantal 08-16-2022 Albumin [Mass/Vol] 4.3 g/dL Normal 3.5-4.6 [facility] Comment on above: Performed By: #### C MP #### [facility] [address] [place] [address] ALP [Catalytic activity/Vol] 72 U/L Normal 40-130 [facility] Comment on above: Performed By: #### C MP #### [facility] [address] [place] [address] ALT [Catalytic activity/Vol] 15 U/L Normal 0-33 [facility] Comment on above: Performed By: #### C MP #### [facility] [address] [place] [address] Anion gap [Moles/Vol] 12 mmol/L Normal 9-15 [facility] Comment on above: Performed By: #### C MP #### [facility] [address] [place] [address] AST [Catalytic activity/Vol] 19 U/L Normal 0-35 [facility] Comment on above: Performed By: #### C MP #### [facility] [address] [place] [address] Bilirubin [Mass/Vol] 0.3 mg/dL Normal 0.2-0.7 [facility] Comment on above: Performed By: #### C MP #### [facility] [address] [place] [address] Calcium [Mass/Vol] 9.3 mg/dL Normal 8.5-9.9 [facility] Comment on above: Performed By: #### C MP #### [facility] [address] [place] [address] Chloride [Moles/Vol] 104 mmol/L Normal 95-107 [facility] Comment on above: Performed By: #### C MP #### [facility] [address] [place] [address] CO2 [Moles/Vol] 26 mmol/L Normal 20-31 [facility] Comment on above: Performed By: #### C MP #### [facility] [address] [place] [address] Creatinine [Mass/Vol] 0.73 mg/dL Normal 0.50-0.90 [facility] Comment on above: Performed By: #### C MP #### [facility] [address] [place] [address] GFR >60.0 Normal >60 [facility] Comment on above: Result Comment: Dia atric [...] secretion. Performed By: #### C MP #### [facility] [address] [place] [address] Globulin (S) [Mass/Vol] 2.8 g/dL Normal 2.3-3.5 [facility] Comment on above: Performed By: #### C MP #### [facility] [address] [place] [address] Glucose [Mass/Vol] 90 mg/dL Normal 70-99 [facility] Comment on above: Performed By: #### C MP #### [facility] [address] [place] [address] Potassium [Moles/Vol] 4.2 mmol/L Normal 3.4-4.9 [facility] Comment on above: Performed By: #### C MP #### [facility] [address] [place] [address] Protein [Mass/Vol] 7.1 g/dL Normal 6.3-8.0 [facility] Comment on above: Performed By: #### C MP #### [facility] [address] [place] [address] Sodium [Moles/Vol] 142 mmol/L Normal 135-144 [facility] Comment on above: Performed By: #### C MP #### [facility] [address] [place] [address] Urea nitrogen [Mass/Vol] 12 mg/dL Normal 6-20 [facility] Comment on above: Performed By: #### C MP #### [facility] [address] [place] [address] Lipid Panelon 08-16-2022 Cholesterol [Mass/Vol] 221 mg/dL Critically high 0-199 [facility] Comment on above: Result Comment: ATP III Cholesterol Classification is Borderline High. Performed By: #### L IPID #### [facility] [address] [place] [address] Cholesterol in HDL [Mass/Vol] 51 mg/dL Normal 40-59 [facility] Comment on above: Result Comment: ATP III [...] CHD Performed By: #### L IPID #### [facility] [address] [place] [address] Cholesterol in LDL [Mass/Vol] 149 mg/dL Critically high 0-129 [facility] Comment on above: Result Comment: ATT III Classification is Borderline High. Performed By: #### L IPID #### [facility] [address] [place] [address] Triglyceride [Mass/Vol] 105 mg/dL Normal 0-150 [facility] Comment on above: Result Comment: ATP III Triglycerides Classification is Normal. Performed By: #### L IPID #### [facility] [address] [place] [address] Shane 10-18-2021 CNPN Telephone (OPHTNR) JASON WHITE ([id number]) 1990 F Date Time Provider Department 10/18/21 [...] Assessed Reason for Visit: Contact Lens Question [3900] Prescriptions as of 10/18/2021 - triamcinolone acetonide [...] Status:Closed by JENNIE GAMEZ on 10/18/21 Normal [facility] SARS-CoV-2 (COVID-19) RT-PCR on 07-05-2021 SARS-CoV-2 (COVID-19) RNA OLGA+probe Ql (Unsp spec) Positive Abnormal [facility] Comment on above: Order Comment: Emplo garibay [...] Authorization (EUA) and has been verified by [facility]. 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 Normal [facility] Quantiferon TB Goldon 2020 Quantiferon TB Gold Indeterminate Normal Negative [facility] Comment on above: Result Comment: [...] address questions to Dr. Alexander Jaimes or [email or web address] Testing Performed: [facility]. [address] [place] [id number] Performed By: #### Q CTBG #### [address] [address] SPINE, LUMBOSACRAL; MIN 4 EWSon 10-08-2017 SPINE, [...] exam.Electronically signed by: KIN DELGADO MD Normal [facility] Vital Signs Date Time Vital Sign Value Performing Clinician Myron prince 05-12-2025 10:11-0400 Body weight 99.79 kg Pee Eliane DO Work Phone: [facility] 05-12-2025 10:11-0400 Diastolic blood pressure 82 mm[Hg] Pee Eliane DO Work Phone: [facility] 05-12-2025 10:11-0400 Systolic blood pressure 138 mm[Hg] Pee Eliane DO Work Phone: [facility] 03-27-2025 10:39-0400 Body weight 99.97 kg Eliane Ob [facility] 03-27-2025 10:39-0400 Diastolic blood pressure 82 mm[Hg] Eliane Ob [facility] 03-27-2025 10:39-0400 Systolic blood pressure 130 mm[Hg] Eliane Ob [facility] 11-04-2024 08:39-0500 Body weight 98.88 kg Pee Eliane DO Work Phone: [facility] 11-04-2024 08:39-0500 Diastolic blood pressure 78 mm[Hg] Pee Eliane DO Work Phone: [facility] 11-04-2024 08:39-0500 Systolic blood pressure 122 mm[Hg] Pee Eliane DO Work Phone: [facility] Healthcare Encounters Encounter Date Encounter Type Care Provider Facility Start: 05-12-2025 End: 05-12-2025 Bamboo flowsheet Pee Eliane DO Work Phone: [facility] Start: 05-12-2025 End: 05-12-2025 Bamboo flowsheet Pee Eliane DO Work Phone: [facility] Start: 05-12-2025 End: 05-12-2025 Patient encounter procedure Pee Eliane DO Work Phone: [facility] Start: 05-12-2025 End: 05-12-2025 Periodic preventive med est patient 18-39 yrs Pee Eliane DO Work Phone: [facility] Comment on above: Screening, , for anatomic survey ([facility]); Well woman exam with routine gynecological exam; Second trimester ([facility]); 15 weeks gestation of ([facility]); STD exposure; Nausea Start: 05-05-2025 End: 05-05-2025 [...] Comment on above: First trimester preg jannette ([facility]); 13 weeks gestation of ([facility]) Start: 04-21-2025 End: 04-21-2025 ambulatory PEE ELIANE [...] 01-20-2025 End: 01-20-2025 ambulatory Pee R ELIANE Facility:[facility] Start: 12-22-2024 End: 12-22-2024 ambulatory Pee R ELIANE Facility:[facility] Start: 12-22-2024 End: 12-22-2024 Lab Drop off Pee R ELIANE [facility] Start: 11-24-2024 End: 11-24-2024 Lab Drop off Brianna L Daisha [facility] Start: 11-24-2024 End: 11-24-2024 ambulatory Brianna L Daisha Facility:[facility] Start: 11-11-2024 End: 11-11-2024 ambulatory Pee R ELIANE Facility:[facility] Start: 11-11-2024 End: 11-11-2024 Patient encounter procedure Pee R ELIANE [facility] Start: 11-05-2024 End: 11-05-2024 Lab Drop off Pee R ELIANE [facility] Start: 11-05-2024 End: 11-05-2024 ambulatory JAMES JACKSONDOCK Facility: [facility] Start: 11-04-2024 End: 11-04-2024 Bamboo flowsheet [...] 07-25-2024 ambulatory JAMES Lund NICK Facility: [facility] Start: 07-02-2024 End: 07-02-2024 ambulatory JAMES Lund NICK Facility: [facility] Start: 07-02-2024 End: 07-02-2024 ambulatory 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 ASHISH SEGOVIA Facility: [facility] Start: 05-01-2024 End: 05-01-2024 ambulatory 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 ASHISH A LUCA Facility:[facility] Start: 04-22-2024 End: 04-22-2024 ambulatory DIANE CASAREZ Not Available Start: 03-25-2024 End: 03-25-2024 ambulatory Brianna Ashton Facility:[facility] Start: 01-12-2024 End: 01-12-2024 ambulatory JAMES Kevon NICK Facility:[facility] Start: 06-08-2022 End: 06-08-2022 ambulatory ANGELIA MCCARTHY Facility:[facility] Start: 06-08-2022 End: 06-08-2022 Patient encounter procedure Angelia Mccarthy MD Work Phone: Ophthalmology Comment on above: Myopic astigmatism o f both eyes (Primary Dx); Refractive error Start: 10-12-2021 End: 10-12-2021 ambulatory JENNIE GAMEZ Facility:[facility] Start: 10-11-2021 Orders Only Jennie Gamez OD Work Phone: [facility] Start: 10-08-2017 Ambulatory Giovany Josue Facility:[facility] Procedures Date Procedure Procedure Detail [...] 9:00 AM EDT Routine [facility] [address] [place] [address] [place] [address] Pee Del Rio, [address] [place] [address] [facility] Start: 05-18-2025 Influenza [facility] Start: 05-12-2025 End: 07-12-2025 Alpha fetoprotein, maternal Alpha fetoprotein, maternal Lab Routine 15 weeks gestation of ([facility]) Expected: 05/12/2025 (Approximate), Expires: 07/12/2025 [facility] Comment on above: Expected: 05/12/2025 (Approximate), Expires: 07/12/2025 Start: 05-12-2025 End: 08-12-2025 US for US OB 14+ weeks anatomy scan Imaging Routine Screening, , for anatomic survey ([facility]) Expected: 05/12/2025, Expires: 08/12/2025 [facility] Comment on above: Expected: 05/12/2025 , [...] EDT Ancillary Procedure [facility] [address] [place] [address] [facility] Start: 03-27-2025 End: 03-27-2026 ABO/Rh ABO/Rh Lab Routine Missed menses , unspecified gestational age ([facility]) Expected: 03/27/2025 (Approximate), Expires: 03/27/2026 [facility] Comment on above: Expected: 03/27/2025 (Approximate), Expires: 03/27/2026 Start: 03-27-2025 End: 03-27-2026 Blood type and Indirect antibody screen panel - Blood Type and screen Lab Routine Missed menses , unspecified gestational age ([facility]) Expected: 03/27/2025 (Approximate), Expires: 03/27/2026 [facility] Work Phone: Comment on above: Expected: 03/27/2025 (Approximate), Expires: 03/27/2026 Start: 03-27-2025 End: 03-27-2026 Drugs of abuse panel - Urine by Screen method Rapid drug screen, urine Lab Routine , unspecified gestational age ([facility]) Encounter for supervision of normal first in first trimester ([facility]) Expected: 03/27/2025 (Approximate), Expires: 03/27/2026 [facility] Comment on above: Expected: 03/27/2025 (Approximate), Expires: 03/27/2026 Start: 03-27-2025 End: 06-27-2025 US Pelvis transvaginal US OB transvaginal Imaging Routine , unspecified gestational age ([facility]) Encounter for supervision of normal first in first trimester ([facility]) Expected: 03/27/2025, Expires: 06/27/2025 [facility] Comment on above: Expected: 03/27/2025 , Expires: 06/27/2025 Start: 03-10-2025 End: 03-10-2025 Patient encounter procedure 03/10/2025 8:40 AM EDT Office Visit [facility] [address] [place] [phone] Pee Del Rio, DO [address] [place] [address] [facility] Start: 11-04-2024 End: 11-04-2025 Antimullerian hormone (AMH) Antimullerian hormone (AMH) Lab Routine PCOS (polycystic ovarian syndrome) Abnormal uterine bleeding (AUB) Expected: 11/04/2024 (Approximate), Expires: 11/04/2025 [facility] Comment on above: Expected: 11/04/2024 (Approximate), Expires: 11/04/2025 Start: 11-04-2024 End: 11-04-2025 DHEA DHEA Lab Routine PCOS (polycystic ovarian syndrome) Expected: 11/04/2024 (Approximate), Expires: 11/04/2025 [facility] Healthcare Comment on above: Expected: 11/04/2024 (Approximate), Expires: 11/04/2025 Start: 11-04-2024 End: 11-04-2025 US Pelvis US Pelvis w/ TV Imaging Routine PCOS (polycystic ovarian syndrome) Expected: 11/04/2024, Expires: 11/04/2025 [facility] Healthcare Comment on above: Expected: 11/04/2024 , Expires: 11/04/2025 Start: 11-04-2024 End: 11-04-2024 Patient encounter procedure 11/04/2024 8:40 AM EST Office Visit [facility] [address] [place] [id number] Pee Del Rio DO [address] [place], [place] [id number] Arrived [facility] Comment on above: Arrived Start: 05-18-2024 Influenza vaccination Influenza Vacc ine (#1) [facility] Start: 05-18-2022 Influenza vaccination INFLUENZA (#1) [facility] Start: 05-18-2021 Influenza vaccination INFLUENZA (#1) [facility] Start: 01-10-2018 HPV TESTING HPV TESTING [facility] Start: 01-10-2009 PAP TESTING PAP TESTING [facility] Start: 01-10-2007 Urine microalbumin profile DTAP,TDAP,TD (1 - Tdap) [facility] Start: 01-10-2006 HIV SCREENING HIV SCREENING [facility] Start: 2000 Adult depression screening assessment DEPRESSION SCREENING [facility] Start: 01-10-1993 COVID-19 VACCINE (1) COVID-19 VACCIN E (1) [facility] Start: 1988 HEPATITIS B (1 of 3 - 3-dose series) HEPATITIS B (1 of 3 - 3-dose series) [facility] Bacteria identified in Urine by Culture Urine culture Microbiology Routine Missed menses Ordered: 03/27/2025 [facility] Comment on above: Ordered: 03/27/2025 CBC W Auto Different ial panel - Blood CBC and differential Lab Routine PCOS (polycystic ovarian syndrome) Ordered: 11/04/2024 [facility] Comment on above: Ordered: 11/04/2024 CBC W Auto Different ial panel - Blood CBC and differential Lab Routine Missed menses , unspecified gestational age ([facility]-HCC) Ordered: 03/27/2025 [facility] Comment on above: Ordered: 03/27/2025 CHLAMYDIA TRACHOMATI S (GENITO/STI) CHLAMYDIA TRACHOMATIS (GENITO/STI) Lab Routine STD exposure Ordered: 05/12/2025 [facility] Comment on above: Ordered: 05/12/2025 Cytology Cervical or vaginal smear or scraping study Pap Smear Pathology and Cytology Routine Well woman exam with routine gynecological exam Ordered: 05/12/2025 [facility] Comment on above: Ordered: 05/12/2025 DHEA-sulfate DHEA-sulfate Lab Routine PCOS (polycystic ovarian syndrome) Ordered: 11/04/2024 [facility] Comment on above: Ordered: 11/04/2024 Follicle stimulating hormone Follicle stimulating hormone Lab Routine PCOS (polycystic ovarian syndrome) Ordered: 11/04/2024 [facility] Comment on above: Ordered: 11/04/2024 hCG, quantitative, hCG, quantitative, Lab Routine PCOS (polycystic ovarian syndrome) Ordered: 11/04/2024 [facility] Work Phone: Comment on above: Ordered: 11/04/2024 Hemoglobin A1c/Hemoglobin.total in Blood Hemoglobin A1c Lab Routine Abnormal uterine bleeding (AUB) Ordered: 11/04/2024 [facility] Comment on above: Ordered: 11/04/2024 Hemoglobin A1c/Hemoglobin.total in Blood Hemoglobin A1c Lab Routine Missed menses , unspecified gestational age ([facility]HS-HCC) Ordered: 03/27/2025 [facility] Comment on above: Ordered: 03/27/2025 Hepatitis B virus surface Ag [Presence] in Serum or Plasma by Immunoassay Hepatitis B surface antigen Lab Routine Missed menses , unspecified gestational age ([facility]HS-HCC) Ordered: 03/27/2025 [facility] Comment on above: Ordered: 03/27/2025 Hepatitis C virus Ab [Presence] in Serum or Plasma by Immunoassay Hepatitis C antibody Lab Routine Missed menses , unspecified gestational age ([facility]HS-HCC) Ordered: 03/27/2025 [facility] Comment on above: Ordered: 03/27/2025 HIV-1/HIV-2 antigen/antibody combination immunoassay HIV-1 and HIV-2 antibodies Lab Routine Missed menses , unspecified gestational age ([facility]) Ordered: 03/27/2025 [facility] Comment on above: Ordered: 03/27/2025 Human papilloma viru s DNA [Presence] in Unspecified specimen by Probe with amplification HPV DNA probe, amplified Microbiology Routine Well woman exam with routine gynecological exam Ordered: 05/12/2025 [facility] Comment on above: Ordered: 05/12/2025 Luteinizing hormone Luteinizing hormone Lab Routine PCOS (polycystic ovarian syndrome) Ordered: 11/04/2024 [facility] Comment on above: Ordered: 11/04/2024 Neisseria gonorrhoea e DNA [Presence] in Unspecified specimen by OLGA with probe detection Neisseria gonorrhea DNA probe, direct Lab Routine STD exposure Ordered: 05/12/2025 [facility] Comment on above: Ordered: 05/12/2025 Progesterone Progesterone Lab Routine PCOS (polycystic ovarian syndrome) Hormone disorder Ordered: 11/04/2024 [facility] Comment on above: Ordered: 11/04/2024 Reagin Ab [Presence] in Serum by RPR RPR Lab Routine Missed menses , unspecified gestational age ([facility]) Ordered: 03/27/2025 [facility] Comment on above: Ordered: 03/27/2025 Rubella antibody, IgG Rubella an tibody, IgG Lab Routine Missed menses , unspecified gestational age ([facility]) Ordered: 03/27/2025 [facility] Comment on above: Ordered: 03/27/2025 SURESWAB(R) ADVANCED VAGINITIS PLUS, TMA SURESWAB(R) ADVANCED VAGINITIS PLUS, TMA Pathology and Cytology Routine STD exposure Ordered: 05/12/2025 [facility] Work Phone: Comment on above: Ordered: 05/12/2025 Thyrotropin [Units/volume] in Serum or Plasma TSH Lab Routine PCOS (polycystic ovarian syndrome) Ordered: 11/04/2024 [facility] Comment on above: Ordered: 11/04/2024 Thyroxine (T4) free [Mass/volume] in Serum or Plasma T4, free Lab Routine PCOS (polycystic ovarian syndrome) Ordered: 11/04/2024 [facility] Comment on above: Ordered: 11/04/2024 [facility] Immunizations Immunization Date Immunization Notes Care Provider Fa cility 06-18-2023 influenza, unspecifi ed formulation Pee ELIANE [facility] 06-18-2023 influenza virus vaccine, unspecified formulation Pee Eliane DO Work Phone: [facility] Comment on above: Result Comment: 2023: VIS DATE: 04/22/2021 09-15-2022 SARS-CoV-2 (COVID-19 ) [id number].[id number] Pee ELIANE [facility] 07-10-2022 influenza virus vaccine, unspecified formulation Pee ELIANE [facility] Comment on above: Result Comment: 2023: NULL 02-06-2022 tetanus toxoid, redu west diphtheria toxoid, and acellular pertussis vaccine, adsorbed Pee ELIANE [facility] Comment on above: Result Comment: 2023: VIS DATE: 04/22/2021 09-08-2021 influenza virus vaccine, unspecified formulation Pee ELIANE [facility] 09-08-2021 SARS-CoV-2 (COVID-19 ) mRNA-1273 vaccine Pee ELIANE [facility] 06-29-2021 influenza virus vaccine, unspecified formulation Pee ELIANE [facility] Comment on above: Result Comment: 2023: NULL 11-30-2020 SARS-CoV-2 (COVID-19 ) mRNA BNT-162b2 vax Pee ELIANE [facility] Comment on above: Result Comment: 2023: TPV23 11-09-2020 SARS-CoV-2 (COVID-19 ) mRNA BNT-162b2 vax Epe ELIANE [facility] Comment on above: Result Comment: 2023: TPV23 10-12-2020 SARS-CoV-2 (COVID-19 ) mRNA-1273 vaccine Pee ELIANE [facility] 09-14-2020 SARS-CoV-2 (COVID-19 ) mRNA-1273 vaccine Pee ELIANE [facility] 06-29-2020 influenza virus vaccine, unspecified formulation Pee ELIANE [facility] 09-19-2019 influenza virus vaccine, unspecified formulation Pee ELIANE [facility] 06-25-2018 influenza virus vaccine, unspecified formulation Pee ELIANE [facility] 06-03-2015 influenza virus vaccine, unspecified formulation Pee ELIANE [facility] 06-28-2013 influenza virus vaccine, unspecified formulation Pee ELIANE [facility] 05-11-2011 tetanus toxoid, redu west diphtheria toxoid, and acellular pertussis vaccine, adsorbed Pee ELIANE [facility] 01-30-2000 measles, mumps and rubella virus vaccine Pee ELIANE [facility] 02-15-1999 hepatitis B vaccine, pediatric or pediatric/adolescent dosage Pee ELIANE [facility] Payers Date Payer Category Payer Private Health Insurance [employer] 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 2021 Unknown [id number]. [id number] 2021 Unknown [id number] 1988 Unknown [id number] 2.16.840.1.249864.3.579.2. 1259 1988 Unknown [id number] 2.16840.1.710690.3.579.2 1988 Unknown [id number] 2.16840.1.539163.3.579.2 1988 Unknown [id number] 2.16.840.1.222163.3.579.2 1988 Unknown [id number] 2.16.840.1.302028.3.579.2 1988 Unknown [id number] 2.16.840.1.518242.3.579.27 1988 Unknown [id number] 2.16.840.1.733671.3.579.2 1988 Unknown [id number] 2.16.840.1.821782.3.579.2. 727 1988 Unknown [id number] 2.16.840.1.238552.3.579.2. 727 1988 Unknown [id number] 2.16.840.1.667758.3.579.2. 727 1988 Unknown [id number] 2.16.840.1.402980.3.579.2. 727 1988 Unknown [id number] 2.16.840.1.169531.3.579.2. 727 1988 Unknown [id number] 2.16.840.1.082658.3.579.2. 727 1988 Unknown [id number] 2.16.840.1.215890.3.579.2. 1259 1988 Unknown [id number] 2.16.840.1.617551.3.579.2. 9 1988 Unknown [id number] 2.16.840.1.291405.3.579.2. 1259 1988 Unknown [id number] 2.16.840.1.525812.3.579.2. 9 1988 Unknown [id number] 2.16.840.1.488805.3.579.2. 1259 Unknown [id number] Social History Date Type Detail Facility Start: 09-02-2012 End: 07-25-2024 Tobacco smoking status GAIS Never smoked tobacco [facility] Start: 09-02-2012 End: 06-08-2022 Alcohol intake Current non-drinker of alcohol (finding) [facility] Start: 1990 Sex Assigned At Female [facility] Exposure to SARS-CoV -2 (event) Yes [facility] Start: 10-12-2021 Tobacco use and exposure Smokeless tobacco non-user [facility] Tobacco smoking stat us GAIS Tobacco smoking consumption unknown [facility] Start: 01-29-2024 Gender identity Identifies as female gender (finding) [facility] Start: 01-29-2024 Sexual orientation Heterosexual (finding) [facility] Tobacco smoking status Never [facility] [place] Sex Assigned At Female [facility] Sexual Orientation [facility] Start: 02-07-2019 Sex Female (finding) [facility] Start: 02-08-2025 [facility] Healthcare Clinical Notes 10-12-2021 to 05-12-2025 Arline Marcos, [facility] - 05/12/2025 9:50 AM EDJustin Ryder, [facility] - 04/21/2025 9:30 AM Fadi Marcos, [facility] - 04/21/2025 9:30 AM Rosa Dillard, [facility] - 03/27/2025 10:00 AM EDTRadiology Note Date [...] (polycystic ovarian syndrome) 02/24/2025 Positive urine test ([facility]) 02/24/2025 Resolved Ambulatory Problems Diagnosis [...] nursing note reviewed. Exam conducted with a counselor manager present. Vitals: There is no height or weight on file to calculate BMI. BP: 138/82 Patient's last menstrual period was 01/25/2025. ASSESSMENT & PLAN ICD-10-CM 1. Screening, , for anatomic survey ([facility]) Z36.89 US OB 14+ weeks anatomy scan US OB 14+ weeks anatomy scan 2. Well woman exam with routine gynecological exam Z01.419 Pap Smear HPV DNA probe, amplified 3. Second trimester ([facility]) Z34.92 POCT urinalysis dipstick manually resulted 4. 15 weeks gestation of ([facility]) Z3A.15 Alpha fetoprotein, maternal Alpha fetoprotein, maternal [...] and zofran. Pt to be referred to [facility] for vanishing twin and AMA Orders [...] Del Rio DO documented in this encounter [facility] 04-21-2025 History of Present illness Narrative Reason [...] (polycystic ovarian syndrome) 02/24/2025 Positive urine test ([facility]) 02/24/2025 Resolved Ambulatory Problems Diagnosis [...] nursing note reviewed. Exam conducted with a counselor manager present. Vitals: There is no height or weight on file to calculate BMI. BP: Patient's last menstrual period was 01/25/2025. ASSESSMENT & PLAN ICD-10-CM 1. First trimester ([facility]) Z34.91 2. 13 weeks gestation of ([facility]) Z3A.13 New OB: Patient presents today for [...] or undercooked meat, and stay away from [facility]. Patient has been consulted regarding any further do's and don'ts of . Patient voiced understanding and all questions and concerns were answered. No orders of the defined types were placed in this encounter. Follow Up: Patient is to return in 4 weeks for routine OB appointment. Documented by Arline Marcos LPN on behalf of: Pee Del Rio DO documented in this encounter [facility] 03-27-2025 History of Present illness Narrative Reason [...] urine test ([facility]) 02/24/2025 Resolved Ambulatory Problems Diagnosis [...] dipstick manually resulted , unspecified gestational age ([facility]) - Type and screen; Future - ABO/Rh; Future - CBC and differential - Hemoglobin A1c - RPR - Rubella antibody, IgG - Hepatitis B surface antigen - Hepatitis C antibody - HIV-1 and HIV-2 antibodies - Rapid drug screen, urine; Future - OB transvaginal; Future Encounter for supervision of normal first in first trimester ([facility]) - Rapid drug screen, urine; Future - [...] or undercooked meat, and stay away from [facility]. Patient has also been advised to [...] aware she will need to wait for [place] labs to be given until verified. Script [...] Kyra Dillard LPN documented in this encounter [facility] 12-22-2024 Evaluation + Plan note Diagnostic Tests PendingDHEA 12/22/24 [facility] 11-24-2024 Note Nurse Consultation N ote [...] Recorded 2024-05-01: VIS DATE: 04/22/2021 SARS-CoV-2 (COVID-19) [id number].[id number] 09/15/2022 Recorded influenza virus vaccine, inactivated 07/10/2022 [...] Recorded hepatitis B pediatric vaccine 02/15/1999 Recorded [place] 11-24-2024 Evaluation + Plan note Diagnostic Tests PendingProgesterone Level 11/24/24 [facility] 11-04-2024 History of Present illness Narrative [...] nursing note reviewed. Exam conducted with a counselor manager present. Vitals: There is no height [...] Del Rio DO documented in this encounter [facility] 07-25-2024 Note Patient Education Genetic Medicine Diet for Metabolic Syndrome Metabolic syndrome is a disorder that includes three or more of the following conditions: ??? Abdominal obesity, as seen in a large waist measurement. ??? Too much sugar (glucose) in your blood. ??? High blood pressure (hypertension). ??? Lozcal-izuf-airhvr amount of fat (lipids) in your blood. ??? Qbxri-rjes-yxtpvq level of good cholesterol (HDL). Keeping an [...] beans. Tomatoes. Squash. Eggplant. Peppers. Onions. Cucumbers. Only sprouts. Sweet potatoes. Yams. Beans. Lentils. Grains [...] fats, nuts, a (more content not included)... [place] 06-08-2022 Note HNO ID: [id number] Author: Angelia Mccarthy MD Service: ? Author [...] Mccarthy MD June 08, 2022 8:13 AM [facility] 06-08-2022 History of Present illness [...] 2022 8:13 AM documented in this encounter [facility] 10-12-2021 Note HNO ID: [id number] Author: Jennie Gamez OD Service: ? Author Type: STONE DECORATOR Type: Progress Notes Filed: 10/18/2021 1:30 PM [...] of its relevant components. Jennie Gamez, LIAM [facility] Evaluation + Plan note Future Appointments Appointment Date:11/11/2024 12:00:00 PM Scheduled Provider: Location:.[facility] Appointment Type:US Abdominal/Pelvis (FT) Diagnostic Tests PendingLuteinizing Hormone 11/05/24FSH Level 11/05/24DHEA 11/05/24DHEAS 11/05/24Anti-Mullerian Hormone ([facility]) 11/05/24 Future Scheduled TestsUS Pelvis Non-OB Complete 11/11/24US Transvaginal Non-OB 11/11/24 [facility] Evaluation note Diagnosis Myopic astigmatism of both eyes- Primary Refractive error Unspecified disorder of refraction and accommodation [facility] Encounter for infertility PCOS (polycystic ovarian syndrome) Polycystic ovaries Abnormal uterine bleeding (AUB) Hormone disorder Unspecified endocrine disorder documented in this encounter [facility] HealthcareEvaluation note* Diagnosis Missed menses , unspecified gestational age ([facility]) Encounter for supervision of normal first in first trimester ([facility]) Nausea Nausea alone documented in this encounter [facility] HealthcareEvaluation note* Diagnosis First trimester ([facility]) state, incidental 13 weeks gestation of ([facility]) documented in this encounter [facility] HealthcareEvaluation note* Diagnosis Screening, , for anatomic survey ([facility]) Encounter for anatomic survey Well woman exam with routine gynecological exam Routine gynecological examination Second trimester ([facility]) state, incidental 15 weeks gestation of ([facility]) STD exposure Nausea Nausea alone documented in this encounter [facility] HealthcareHospital course Narrative No data available for this section [facility] Hospital Discharge instructions No data available for this section [facility] Progress note No data available for this section [facility] Summary Purpose Family History No Family [...] section and content) DATE CREATED AUTHOR 03/11/2018 [facility] DATE CREATED AUTHOR AUTHOR'S ORGANIZ ATION 09/03/2021 [facility] DATE CREATED AUTHOR AUTHOR'S ORGANIZ ATION 06/18/2022 [facility] DATE CREATED AUTHOR AUTHOR'S ORGANIZ ATION [facility]2022 [facility] DATE CREATED AUTHOR AUTHOR'S ORGANIZ ATION 04/24/2024 [facility] DATE CREATED AUTHOR AUTHOR'S ORGANIZ ATION 11/06/2024 [facility] DATE CREATED AUTHOR AUTHOR'S ORGANIZ ATION 11/07/2024 [facility] DATE CREATED AUTHOR AUTHOR'S ORGANIZ ATION 11/09/2024 [facility] DATE CREATED AUTHOR AUTHOR'S ORGANIZ ATION 11/12/2024 [facility] DATE CREATED AUTHOR AUTHOR'S ORGANIZ ATION 12/06/2024 [facility] DATE CREATED AUTHOR AUTHOR'S ORGANIZ ATION 12/24/2024 [facility] DATE CREATED AUTHOR AUTHOR'S ORGANIZ ATION 01/27/2025 [facility] DATE CREATED AUTHOR AUTHOR'S ORGANIZ ATION 04/23/2025 [facility] EPIC Source Comments (unrecognize d section and content) In the event this informatio n is protected by the Federal Confidentiality of Alcohol and Drug Abuse Patient Records regulations: The Federal rules restrict any use of the information to criminally investigate or prosecute any alcohol or drug abuse patient.[facility] the event this information is protected by the Federal Confidentiality of Alcohol and Drug Abuse Patient Records regulations: The Federal rules restrict any use of the information to criminally investigate or prosecute any alcohol or drug abuse patient.[facility] Care Teams (unrecognized sec tion and content) Radon Inspector Relationship Specialty Start Date End Date Li Guillen [phone] [place] [address] PCP - General 09/02/12 Radon Inspector Relationship Specialty Start Date End Date Li Guillen [phone] [place] [address] PCP - General 09/02/12 Reason for Visit [...] BE BASED ON THE PRIMARY CLINICAL RECORDS. [facility] [facility]. provides no warranty or guarantee of the accuracy or completeness of information in this document.
[2025-05-15 13:08] LABS: Age Gdln ACOG Testing Note (.); IGP, Aptima HPV, rfx 16/18,45 Note (.)
== END 2025-05-12 14:42 | disposition home or self-care (01) ==
LOC: LAB 14:41
PROVIDERS: Visit Provider Obstetrics & Gynecology
DX: Z01.419 Encounter for gynecological examination (general) (routine) without abnormal findings (principal)
CPT/HCPCS: 87624; 88175

== ENCOUNTER 2025-05-19 14:15 | Outpatient (OUT) | payer OTHER, SELFPAY ==
--- OUTSIDE RECORDS SUMMARY | 2025-05-12 09:50 | XMS_ITS | Encounter Summary ---
Author Organization [facility] Address [address] [place] [address] Care Team Providers Care Information Assurance Specialist Name Role Phone Unavailable Primary Care Provider Unavailabl e Reason for Visit * Reason Comments Routine Visit Encounter Details Date Type Department Care Team (Latest Contact Info) Description 05/12/2025 9:50 AM EDT Routine [facility] [address] [place] [address] Pee Del Rio DO [address] [place] [address] Screening, , for anatomic survey ([facility]); Well woman exam with routine gynecological exam; Second trimester ([facility]); 15 weeks gestation of ([facility]); STD exposure; Nausea Social History Tobacco Use [...] this encounter Progress Notes * Arline LEANNE aMrcos - 05/12/2025 9:50 AM EDT Reason for [...] Positive urine test ([facility]) 02/24/2025 Resolved Ambulatory Problems Diagnosis Date Noted [...] nursing note reviewed. Exam conducted with a transportation aid present. Vitals: There is no height or weight on file to calculate BMI. BP: 138/82 Patient's last menstrual period was 01/25/2025. ASSESSMENT & PLAN ICD-10-CM 1. Screening, , for anatomic survey ([facility]) Z36.89 US OB 14+ weeks anatomy scan US OB 14+ weeks anatomy scan 2. Well woman exam with routine gynecological exam Z01.419 Pap Smear HPV DNA probe, amplified 3. Second trimester ([facility]) Z34.92 POCT urinalysis dipstick manually resulted 4. 15 weeks gestation of ([facility]) Z3A.15 Alpha fetoprotein, maternal Alpha fetoprotein, maternal 5. STD exposure Z20.2 SURESWAB(R) ADVANCED VAGINITIS PLUS, TMA CHLAMYDIA TRACHOMATIS (GENITO/STI) Neisseria gonorrhea DNA probe, direct 6. Nausea R11.0 promethazine (Phenergan) 12.5 MG tablet Return OB/Annual Exam: Patient presents today for a annual exam/routine obstetrics appointment. Patient is currently [id number]. Patient states she is doing well but has complaints of nausea in the morning. Pap and cultures was obtained without difficulty and patient was given orders for anatomy scan and msAFP to be obtained. Pt still having complaints of nausea and vomiting, rx for phenergan faxed to pharmacy. Pt to take phenergan and zofran. Pt to be referred to [facility] for vanishing twin and AMA Orders Placed [...] EDT Routine [facility] [address] [place] [phone] Pee Del Rio DO [address] [place] [address] Scheduled Orders Name Type Priority Associated Diagnoses Orde r Schedule SURESWAB(R) ADVANCED VAGINITIS PLUS, TMA Pathology and Cytology Routine STD exposure Ordered: 05/12/2025 CHLAMYDIA TRACHOMATIS (GENITO/STI) Lab Routine STD exposure Ordered: 05/12/2025 Neisseria gonorrhea DNA probe, direct Lab Routine STD exposure Ordered: 05/12/2025 US OB 14+ weeks anatomy scan Imaging Routine Screening, , for anatomic survey ([facility]) Expected: 05/12/2025, Expires: 08/12/2025 Pap Smear Pathology and Cytology Routine Well woman exam with routine gynecological exam Ordered: 05/12/2025 HPV DNA probe, amplified Microbiology Routine Well woman exam with routine gynecological exam Ordered: 05/12/2025 Alpha fetoprotein, maternal Lab Routine 15 weeks gestation of ([facility]) Expected: 05/12/2025 (Approximate), Expires: 07/12/2025 documented as of this encounter Procedures Procedure Name Priority Date/Time Associated Diagnosis Comments POCT URINALYSIS DIPSTICK Routine 05/12/2025 10:29 AM EDT Second trimester ([facility]) documented in this encounter Results * (ABNORMAL) [...] Diagnoses Diagnosis Screening, , for anatomic survey ([facility]) Encounter for anatomic survey Well woman exam with routine gynecological exam Routine gynecological examination Second trimester ([facility]) state, incidental 15 weeks gestation of ([facility]) STD exposure Nausea Nausea alone documented in this encounter
--- OUTSIDE RECORDS SUMMARY | 2025-05-19 14:19 | XMS_ITS | Encounter Summary ---
Author Organization [facility] Address [address] [place] [address] Care Team Providers Care Chemical Laboratory Technician Name Role Phone Unavailable Primary Care Provider Unavailabl e Encounter Details Date Type Department Care Team (Late st Contact Info) Description 12/17/2024 Abstract [facility] [address] [place] [address] Emi Ventura LPN Social History Tobacco [...] Routine [facility] [address] [place] [phone] Pee Del Rio DO [address], [place] [id number] documented as of this encounter Visit Diagnoses Not on filedocumented in this encounter
--- OUTSIDE RECORDS SUMMARY | 2025-05-19 14:19 | XMS_ITS | Clinical Summary ---
Author Organization [facility] Address [address] [place] [address] Phone Care Team Providers Care Commercial Instructor Supervisor Name Role Phone Unavailable Primary Care Provider Unavailabl e Encounters Date Type Department Care Team Description 05/15/2025 Transcribe Orders [facility] [place] [address] [facility] [place] [phone] Pee Del Rio, Encounter for supervision of normal , unspecified, unspecified trimester (Primary Dx) from Last 3 Months Social History Tobacco Use Types Packs/Day Years Used Date Smoking Tobacco: Never Assessed Comments Unknown Sex and Gender Information Value Date Recorded Sex Assigned at Not on file Legal Sex Female 2:41 PM EDT Gender Identity Not on file Sexual Orientation Not on file Plan of Treatment Upcoming Encounters Date Type Department Care Team (Late st Contact Info) Description 06/16/2025 7:30 AM EDT Appointment [facility] [place] [address] [facility] [place] [phone] Health Maintenance Due Date Last Done Comments HIV Screening 1990 Lipid Panel 1990 Yearly Adult Physical 1990 MMR Vaccines (1 of 1 - Stand baldemar series) 01/10/1989 Hepatitis C Screening 01/10/2006 Hepatitis B Vaccines (1 of 3 - 19+ 3-dose series) 01/10/2007 Cervical Cancer Screening 01/10/2009 HPV/Cotest 01/10/2009 Pap Smear 01/10/2009 DTaP/Tdap/Td Vaccines (1 - Tdap) 01/10/2010 HPV Vaccines (1 - 3-dose sta ndard series) 01/10/2015 COVID-19 Vaccine (2023-2 5 season) 2025 Influenza Vaccine (#1) 2025 Zoster Vaccines (1 of 2) 01/10/2038 HIB Vaccines Aged Out No longer eligi ble based on patient's age to complete this topic Hepatitis A Vaccines Aged Out No long er eligible based on patient's age to complete this topic IPV Vaccines Aged Out No longer eligi ble based on patient's age to complete this topic Meningococcal Vaccine Aged Out No chantal richi eligible based on patient's age to complete this topic Pneumococcal Vaccine: Pediat rics and At-Risk Adult Patients Aged Out No longer mak gible based on patient's age to complete this topic Rotavirus Vaccines Aged Out No longer eligible based on patient's age to complete this topic Insurance [employer] [place] [employer] Member Subscriber Plan / Payer (Ef fective 2024-Present) Name:Elbert Pena Relation to Subscriber:Self Name:Elbert Pena Payer ID:Not on file Type:Not on file Address: [place] [phone]
--- OUTSIDE RECORDS SUMMARY | 2025-05-19 14:19 | XMS_ITS | Encounter Summary ---
Author Organization [facility] Address [address] [place] [address] Care Team Providers Care Land Checker Name Role Phone Unavailable Primary Care Provider Unavailabl e Encounter Details Date Type Department Care Team (Late st Contact Info) Description 05/12/2025 External Result Encounter [facility] External Department Unsolicited Pee Del Rio DO [address] [place] [address] Social History Tobacco Use Types Packs/Day Years [...] AM EDT Routine [facility] [address] [place] [phone] Pee Del Rio DO [address] [place] [address] documented as of this encounter Procedures Procedure Name Priority Date/Time Associated Diagnosis Comments RECURRENT VAGINITIS (HTRX) Routine 05/12/2025 12:03 PM EDT documented in this encounter Results * RECURRENT VAGINITIS (HTRX) (05/12/2025 12:03 PM EDT) [facility] ATOPOBIUM VAGINAE 0 19.961 - 24.689 ppm 05/13/2025 6:10 AM EDT [facility] ATOPOBIUM VAGINAE Not Detected 19.961 - 24.689 ppm 05/13/2025 6:10 AM EDT [facility] BVAB 2,3 (BACTERIAL VAGINOSIS ASSOCIATED BACTERIA 2, 3); MOBILUNCUS SPP 0 19.961 - 24.689 ppm 05/13/2025 6:10 AM EDT [facility] BVAB 2,3 (BACTERIAL VAGINOSIS ASSOCIATED BACTERIA 2, 3); MOBILUNCUS SPP Not Detected 19.961 - 24.689 ppm 05/13/2025 6:10 AM EDT [facility] TOÑO ALBICANS, PARAPSILOSIS, TROPICALIS 0 23.000 - 30.347 ppm 05/13/2025 6:10 AM EDT [facility] TOÑO ALBICANS, PARAPSILOSIS, TROPICALIS Not Detected 23.000 - 30.347 ppm 05/13/2025 6:10 AM EDT [facility] TOÑO GLABRATA 0 23.000 - 31.618 ppm 05/13/2025 6:10 AM EDT [facility] TOÑO GLABRATA Not Detected 23.000 - 31.618 ppm 05/13/2025 6:10 AM EDT [facility] TOÑO KRUSEI 0 23.000 - 30.873 ppm 05/13/2025 6:10 AM EDT [facility] TOÑO KRUSEI Not Detected 23.000 - 30.873 ppm 05/13/2025 6:10 AM EDT [facility] CHLAMYDIA TRACHOMATIS 0 23.000 - 31.586 ppm 05/13/2025 6:10 AM EDT [facility] CHLAMYDIA TRACHOMATIS Not Detected 23.000 - 31.586 ppm 05/13/2025 6:10 AM EDT [facility] GARDNERELLA VAGINALIS 0 19.961 - 24.689 ppm 05/13/2025 6:10 AM EDT [facility] GARDNERELLA VAGINALIS Not Detected 19.961 - 24.689 ppm 05/13/2025 6:10 AM EDT [facility] MEGASPHAERA (TYPES 1, 2) 0 19.961 - 24.689 ppm 05/13/2025 6:10 AM EDT [facility] MEGASPHAERA (TYPES 1, 2) Not Detected 19.961 - 24.689 ppm 05/13/2025 6:10 AM EDT [facility] NEISSERIA GONORRHOEAE 0 23.000 - 32.587 ppm 05/13/2025 6:10 AM EDT [facility] NEISSERIA GONORRHOEAE Not Detected 23.000 - 32.587 ppm 05/13/2025 6:10 AM EDT [facility] TRICHOMONAS VAGINALIS 0 23.000 - 31.995 ppm 05/13/2025 6:10 AM EDT [facility] TRICHOMONAS VAGINALIS Not Detected 23.000 - 31.995 ppm 05/13/2025 6:10 AM EDT [facility] MYCOPLASMA GENITALIUM 0 19.961 - 24.689 ppm 05/13/2025 6:10 AM EDT [facility] MYCOPLASMA GENITALIUM Not Detected 19.961 - 24.689 ppm 05/13/2025 6:10 AM EDT [facility] Tissue 05/12/2025 12:0 3 PM EDT 05/13/2025 1:30 AM EDT us Pee Eliane DO LAB BLOOD ORDERABLES Final Resul t [facility] [address] [place] [address] documented in this encounter Visit Diagnoses Not on filedocumented in this encounter
--- OUTSIDE RECORDS SUMMARY | 2025-05-19 14:19 | XMS_ITS | Encounter Summary ---
Author Organization [facility] Address [address] [place] [address] Phone Care Team Providers Care Spray Dry Operator Name Role Phone Unavailable Primary Care Provider Unavailabl e Reason for Referral * Imaging (Routine) - Authorized Specialty Diagnoses / Procedures Referred By Henrik t Referred To Contact Radiology Diagnoses Encounter for supervision of normal , unspecified, unspecified trimester Procedures [facility] OB imaging order Pee Del Rio DO [address], [place] [address] Phone: tel: fax: Referral ID Status Reason Start Date Expiration Date Visits Requested Visits Authorized [id number] Authorized Perform Procedure 05/15/2025 06/15/2026 1 1 Encounter Details Date Type Department Care Team (Latest Contact Info) Description 05/15/2025 Transcribe Orders [facility] [address] [place] [address] Pee Del Rio DO [address] [facility] [address], [place] [place], [place] [phone] Encounter for supervision of normal , unspecified, unspecified trimester (Primary Dx) Social History Tobacco Use Types Packs/Day Years Used Date Smoking Tobacco: Never Assessed Comments Unknown Sex and Gender Information Value Date Recorded Sex Assigned at Not on file Legal Sex Female 2:41 PM EDT Gender Identity Not on file Sexual Orientation Not on file documented as of this encounter Plan of Treatment Upcoming Encounters Date Type Department Care Team (Late st Contact Info) Description 06/16/2025 7:30 AM EDT Appointment [facility] [address] [facility] [place] [address] Scheduled Orders Name Type Priority Associated Diagnoses Orde r Schedule [facility] imaging order Imaging Routine Encounter for supervision of normal , unspecified, unspecified trimester Expected: 05/15/2025 (Approximate), Expires: 11/01/2025 documented as of this encounter Visit Diagnoses Diagnosis Encounter for supervision of normal , unspecified, unspecified trimester- Primary documented in this encounter
--- OUTSIDE RECORDS SUMMARY | 2025-05-19 14:19 | XMS_ITS | Encounter Summary ---
Author Organization [facility] Address [address] [place] [address] Care Team Providers Care Legal Office Administrator Name Role Phone Unavailable Primary Care Provider Unavailabl e Encounter Details Date Type Department Care Team (Late st Contact Info) Description 05/12/2025 Bamboo flowsheet [facility] [address] [place] [phone] Pee Del Rio DO [facility] [address], [place] [address] Social History Tobacco Use Types Packs/Day Years [...] EDT Routine [facility] [address] [place] [address] Pee Del Rio DO [address] [place] [address] documented as of this encounter Visit Diagnoses Not on filedocumented in this encounter
--- OUTSIDE RECORDS SUMMARY | 2025-05-19 14:19 | XMS_ITS | Encounter Summary ---
Author Organization [facility] Address [address] [place] [address] Care Team Providers Care Ground Crew Supervisor Name Role Phone Unavailable Primary Care Provider Unavailabl e Encounter Details Date Type Department Care Team (Late st Contact Info) Description 11/07/2024 Abstract [facility] [address] [facility] [place] [phone] Pee Del Rio DO [address], [id number] Social History Tobacco Use Types Packs/Day Years [...] EDT Routine [facility] GRIFFITHS [address] [place] [phone] Pee Del Rio DO [address], [facility] documented as of this encounter Visit Diagnoses Not on filedocumented in this encounter
--- OUTSIDE RECORDS SUMMARY | 2025-05-19 14:19 | XMS_ITS ---
Author Organization [facility] Source Produ ction (ClinicalSummary Clone) Address Unknown Care Team Providers Care Data Librarian Name Role Phone Unavailable Primary Care Physician Unavailab le Results * [UNITY] CARRIER SCREEN Performed by: Speak With Me Component Value Range Date Sickle Cell Disease/Beta-Thalassemia/Hemo globinopathies carrier screen NEGATIVE 05/14/2025 01:43 am [facility] Alpha-Thalassemia carrier screen NEGATIVE 05/14/2025 01:43 am [facility] Cystic Fibrosis carrier screen NEGATIVE 05/14/2025 01:43 am [facility] Spinal Muscular Atrophy carrier screen NEGATIVE 2 SMN1 copies, SNP not present 05/14/2025 01:43 am [facility] For detailed report, see PDF See PDF 05/14/2025 01:43 am [place] 05/14/2025 01:4 3 am [facility] Social History Observation Value Start Date End Date
--- OUTSIDE RECORDS SUMMARY | 2025-05-19 14:19 | XMS_ITS | Encounter Summary ---
Author Organization [facility] Address [address] [place] [address] Care Team Providers Care Network Associate Name Role Phone Unavailable Primary Care Provider [...] AM EDT Routine [facility] [address] [place] [phone] Pee Del Rio DO [address] [place] [address] documented as of this encounter Visit Diagnoses Not on filedocumented in this encounter
--- OUTSIDE RECORDS SUMMARY | 2025-05-19 14:19 | XMS_ITS | Clinical Summary ---
Author Organization [facility] Address [address] [place] [address] Care Team Providers Care Stenotype Operator Name Role Phone Unavailable Primary Care [...] (polycystic ovarian syndrome) 02/24/2025 Positive urine test ([facility]) 02/25/20 25 Estimated Date of Delivery Comme nts Yes 11/01/2025 Based on last me nstrual period of 01/25/2025 Encounters Date Type Department Care Team Description 05/14/2025 Abstract [facility] [address] [place] [phone] Pee Del Rio DO 05/12/2025 9:50 AM EDT Routine [facility] [address] [place] [address] Pee Del Rio, Screening, , for anatomic survey ([facility]); Well woman exam with routine gynecological exam; Second trimester ([facility]); 15 weeks gestation of ([facility]); STD exposure; Nausea 05/12/2025 Clinisync Result Encounter [facility]OM[facility] External Department Unsolicited Pee Del Rio, DO 05/12/2025 External Result Encounter NOMS External Department Unsolicited Pee Del Rio, DO 05/12/2025 Telephone [facility] GAGEN [address] [place] [address] Arline Marcos LPN 05/12/2025 Abstract [facility] OBDYLON [address] [place] [address] Pee Del Rio, DO 05/12/2025 Bamboo flowsheet [facility] [address] [place] [address] Pee Del Rio, DO 05/11/2025 Travel 05/05/2025 Clinisync Result Encounter NOMS External Department Unsolicited Pee Del Rio, 04/21/2025 9:30 AM EDT Routine [facility] [address] [place] [address] Pee Del Rio, First trimester ([facility]); 13 weeks gestation of ([facility]) 04/21/2025 Bamboo flowsheet [facility] [address] [place] [address] Pee Del Rio, 04/20/2025 Telephone [facility] [address] [place] [address] Sandy De León MA 04/14/2025 Travel 04/07/2025 9:30 AM EDT Ancillary Procedure [facility] [address] [place] [phone] , unspecified gestational age ([facility]); Encounter for supervision of normal first in first trimester ([facility]) 04/06/2025 Telephone [facility] [address] [facility] [place] [address] Sheri Smith MA 04/01/2025 Travel 03/27/2025 10:00 AM EDT Initial [facility] [address] [place] [address] GA: 8w5d 03/27/2025 9:30 AM EDT Ancillary Procedure [facility] [address] [place] [address] Missed menses 03/20/2025 Travel 03/03/2025 Travel 02/27/2025 Clinisync Result Encounter NOMS External Department Unsolicited Pee Del Rio, DO 02/25/2025 Clinisync Result Encounter NOMS External Department Unsolicited Pee Del Rio, DO 02/24/2025 Telephone [facility] [address] [place] [address] Emi Ventura LPN from Last 3 Months [...] AM EDT Routine [facility] [address] [place] [phone] Pee Del Rio DO [address] [place] [address] Health Maintenance Due Date Last Done Comments Influenza Vaccine (#1) 2025 3, 07/10/2022, 09/08/2021, Additional history exists Cervical Cancer Screening 04/22/2029 HPV/Cotest 04/22/2029 Pap Smear 04/22/2029 04/22/2024 Procedures Procedure Name Priority Date/Time Associated Diagnosis Comments RECURRENT VAGINITIS (HTRX) Routine 05/12/2025 12:03 PM EDT POCT URINALYSIS DIPSTICK Routine 05/12/2025 10:29 AM EDT Second trimester ([facility]) IGP,APTIMA HPV,AGE GDLN Routine 05/12/2025 9:53 AM EDT HBSAG SCREEN Routine 05/05/2025 1:40 PM [...] 55 AM EDT , unspecified gestational age ([facility]) Encounter for supervision of normal first in first trimester ([facility]) POCT URINALYSIS DIPSTICK Routine 03/27/2025 10:07 AM EDT Missed menses POCT , URINE Routine 03/27/2025 10:07 AM EDT Missed menses OB TRANSVAGINAL Routine 03/27/2025 9: 59 AM EDT Missed menses [facility] PREG QUANT HCG Routine 02/27/2025 7: 21 AM EDT [facility] PREG QUANT HCG Routine 02/25/2025 7: 36 AM EDT PAP SMEAR Routine 04/22/2024 12:00 AM EDT from Last 3 Months or Most Recently Relevant to Health Maintenance Results * RECURRENT VAGINITIS (HTRX) (05/12/2025 12:03 PM EDT) ATOPOBIUM VAGINAE 0 19.961 - 24.689 ppm 05/13/2025 6:10 AM EDT [facility] ATOPOBIUM VAGINAE Not Detected 19.961 - 24.689 ppm 05/13/2025 6:10 AM EDT [facility] BVAB 2,3 (BACTERIAL VAGINOSIS ASSOCIATED BACTERIA 2, 3); MOBILUNCUS SPP 0 19.961 - 24.689 ppm 05/13/2025 6:10 AM EDT [facility] BVAB 2,3 (BACTERIAL VAGINOSIS ASSOCIATED BACTERIA 2, 3); MOBILUNCUS SPP Not Detected 19.961 - 24.689 ppm 05/13/2025 6:10 AM EDT [facility] TOÑO ALBICANS, PARAPSILOSIS, TROPICALIS 0 23.000 - 30.347 ppm 05/13/2025 6:10 AM EDT [facility] TOÑO ALBICANS, PARAPSILOSIS, TROPICALIS Not Detected 23.000 - 30.347 ppm 05/13/2025 6:10 AM EDT [facility] TOÑO GLABRATA 0 23.000 - 31.618 ppm 05/13/2025 6:10 AM EDT [facility] TOÑO GLABRATA Not Detected 23.000 - 31.618 ppm 05/13/2025 6:10 AM EDT [facility] TOÑO KRUSEI 0 23.000 - 30.873 ppm 05/13/2025 6:10 AM EDT [facility] TOÑO KRUSEI Not Detected 23.000 - 30.873 ppm 05/13/2025 6:10 AM EDT [facility] CHLAMYDIA TRACHOMATIS 0 23.000 - 31.586 ppm 05/13/2025 6:10 AM EDT [facility] CHLAMYDIA TRACHOMATIS Not Detected 23.000 - 31.586 ppm 05/13/2025 6:10 AM EDT [facility] GARDNERELLA VAGINALIS 0 19.961 - 24.689 ppm 05/13/2025 6:10 AM EDT [facility] GARDNERELLA VAGINALIS Not Detected 19.961 - 24.689 ppm 05/13/2025 6:10 AM EDT [facility] MEGASPHAERA (TYPES 1, 2) 0 19.961 - 24.689 ppm 05/13/2025 6:10 AM EDT [facility] MEGASPHAERA (TYPES 1, 2) Not Detected 19.961 - 24.689 ppm 05/13/2025 6:10 AM EDT [facility] NEISSERIA GONORRHOEAE 0 23.000 - 32.587 ppm 05/13/2025 6:10 AM EDT [facility] NEISSERIA GONORRHOEAE Not Detected 23.000 - 32.587 ppm 05/13/2025 6:10 AM EDT [facility] TRICHOMONAS VAGINALIS 0 23.000 - 31.995 ppm 05/13/2025 6:10 AM EDT [facility] TRICHOMONAS VAGINALIS Not Detected 23.000 - 31.995 ppm 05/13/2025 6:10 AM EDT [facility] MYCOPLASMA GENITALIUM 0 19.961 - 24.689 ppm 05/13/2025 6:10 AM EDT [facility] MYCOPLASMA GENITALIUM Not Detected 19.961 - 24.689 ppm 05/13/2025 6:10 AM EDT [facility] Tissue 05/12/2025 12:0 3 PM EDT 05/13/2025 1:30 AM EDT us Pee Del Rio DO LAB BLOOD ORDERABLES Final Resul t [facility] [address] [place] [address] * (ABNORMAL) POCT urinalysis dipstick manually resulted [...] TEST ENTER/EDIT OR DERABLES Final Result * IGP,APTIMA HPV,AGE GDLN (05/12/2025 9:53 AM EDT) AGE GDLN ACOG TESTING Note . [facility] Comment: TESTS RESULT FLAG UNITS REF RANGE LAB Clinician Provided Cytology Information Source.............[employer] Other.............. No. of containers..01 ThinPrep Vial Age Algo ACOG Veronica... 30-65 01 FLAG LEGEND: L-Low Normal,H-High Normal,LL-Alert Low,HH-Alert High <-Panic Low,>-Panic High,A-Abnormal,AA-Critical Abnormal Performed at: 01 =G [facility] [place] [address] Sonam Iverson MD, IGP, APTIMA HPV, RFX 16/18,45 Note . [facility] Comment: TESTS RESULT FLAG UNITS REF RANGE LAB DIAGNOSIS: 02 NEGATIVE FOR INTRAEPITHELIAL LESION OR MALIGNANCY. THIS SPECIMEN WAS RESCREENED PART OF OUR SENIOR TECHNICAL WRITER PROGRAM. Specimen adequacy: 02 Satisfactory for evaluation. No endocervical component is identified. An endocervical component is not commonly seen in the patient. Performed by: 02 Fidelia Lorenz, Head Of Quality (ASC) QC reviewed by: 02 Jeimy Grigsby, Head Of Quality (ASC) . 02 Note: Note 02 The Pap smear is a screening test designed to aid in the detection of premalignant and malignant conditions of the uterine cervix. It is not a diagnostic procedure and should not be used as the sole means of detecting cervical cancer. Both false-positive and false-negative reports do occur. Test Methodology: Note 02 This liquid based ThinPrep(R) pap test was screened with the use of an image guided system. HPV Genotype Reflex Note 02 Criteria not met, HPV Genotype not performed. FLAG LEGEND: L-Low Normal,H-High Normal,LL-Alert Low,HH-Alert High <-Panic Low,>-Panic High,A-Abnormal,AA-Critical Abnormal Performed at: [address] [address] Sonam Iverson MD, HPV APTIMA Negative Negative [facility] Comment: This nucleic acid amplification test detects fourteen high- risk HPV types (16,18,31,33,35,39,45,51,52,56,58,59,66,68) without differentiation. Performed at: =[address] [id number] Litigation Manager: Sonam Iverson MD, Phone: [phone] Performed at: [address], [place] [id number] Litigation Manager: Sonam Iverson MD, Phone: [phone] 05/12/2025 9:53 AM EDT 05/12/2025 3:19 PM EDT Narrative CLINISYNC - 05/15/2025 1:08 PM EDT SPATULA-ALONE ENDOCERVIX us Pee Eliane DO LAB BLOOD ORDERABLES Final Resul t Performing Organization Address City/[facility]/ZIP Co de Phone Number [facility] * BOX TEST (05/05/2025 1:40 PM EDT) BOX TEST SENT OUT YES TB BOX1 [facility] BOX2 05/05/25 TB 05/05/2025 1:40 PM EDT 05/05/2025 1:50 PM EDT Narrative CLINISYNC - 05/05/2025 1:53 PM EDT us Pee Eliane DO LAB BLOOD ORDERABLES Final Resul t [facility] * HBSAG SCREEN (05/05/2025 1:40 PM EDT) HBSAG SCREEN Negative Negative [facility] Comment: Performed at: [address] [id number] Litigation Manager: Evan Valenzuela PhD, Phone: [phone] 05/05/2025 1:40 PM EDT 05/05/2025 1:50 PM EDT Narrative CLINISYNC - 05/06/2025 12:09 PM EDT us Pee Eliane DO LAB BLOOD ORDERABLES Final Resul t Performing Organization Address [facility] Co de Phone Number [facility] * RAPID PLASMA REAGIN, QUANT (05/05/2025 1:40 PM EDT) Pathologist [facility] RAPID PLASMA REAGIN, QUANT Non Reactive NonRea<1: 1 titer [facility] Comment: Please Note: This test does not meet current guidelines for screening and diagnosis of syphilis. This test is intended for following treatment response in patients being treated for syphilis infection. To screen for syphilis infection, a reflex cascade that includes both RPR and a treponema-specific assay should be utilized, such as Treponema pallidum (Syphilis) Screening [place] (012797) or Rapid Plasma Reagin (RPR) Test With Reflex to Quantitative RPR and Confirmatory Treponema pallidum Antibodies (130480). Performed at: [facility] [id number] Litigation Manager: Evan Valenzuela PhD, Phone: [phone] 05/05/2025 1:40 PM EDT 05/05/2025 1:50 PM EDT [facility] - 05/06/2025 12:09 PM EDT Result [facility] [employer]ee [employer] BLOOD ORDERABLES Final Resul t Performing Organization Address [facility] de Phone Number [facility] * HIV AB/P24 AG WITH REFLEX (05/05/2025 1:40 PM EDT) [facility] HIV AB/P24 AG SCREEN Non Reactive Non Reactive [facility] Comment: HIV-1/HIV-2 antibodies and HIV-1 p24 antigen were NOT detected. There is no laboratory evidence of HIV infection. HIV Negative Performed at: [facility] [id number] Litigation Manager: Evan Valenzuela PhD, Phone: [phone] 05/05/2025 1:40 PM EDT 05/05/2025 1:50 PM EDT Narrative CLINISYAL - 05/06/2025 5:07 AM EDT [facility] BLOOD ORDERABLES Final Resul t Performing Organization Address City/[facility] Co de Phone Number [facility] * HCV ANTIBODY RFX TO QUANT PCR (05/05/2025 1:40 PM EDT) [facility] HCV AB Non Reactive Non Reactive [facility] INTERPRETATION: Comment . [facility] Comment: Not infected with HCV unless early or acute infection is suspected (which may be delayed in an immunocompromised individual), or other evidence exists to indicate HCV infection. Performed at: [facility] [id number] Litigation Manager: Evan Valenzuela PhD, Phone: [phone] 05/05/2025 1:40 PM EDT 05/05/2025 1:50 PM EDT Narrative CLINISYNC - 05/06/2025 8:09 AM EDT [facility] LAB BLOOD ORDERABLES Final Resul t Performing Organization Address [facility] Co de Phone Number [facility] * MLR HEMOGLOBIN A1C (05/05/2025 1:40 PM EDT) [facility] GLYCOHEMOGLOBIN A1C 5.2 4.5 - 6.2 % [facility] Comment: ADA RECOMMENDED LIMIT 4.0 - 6.0 ADA THERAPEUTIC TARGET < 7.0 ACTION SUGGESTED > 7.0 ESTIMATED AVERAGE GLUCOSE 103 mg/dL [facility] 05/05/2025 1:40 PM EDT 05/05/2025 1:50 PM EDT Narrative CLINISYNC - 05/05/2025 7:28 PM EDT Pee Eliane DO CLINISYNC Final Result Performing Organization Address City/[facility] Co de Phone Number [facility] * ALL TYPE AND SCREEN (05/05/2025 1:40 PM EDT) [facility] BLOOD TYPE O Positive [facility] ANTIBODY SCREEN NEGATIVE TB 05/05/2025 1:40 PM EDT 05/05/2025 1:50 PM EDT Narrative CLINISYNC - 05/05/2025 6:24 PM EDT [facility] , Pee Beanzio DO CLINISYNC Final Result [facility] * ALL RUBELLA IGG AB (05/05/2025 1:40 PM EDT) [facility] RUBELLA ANTIBODIES, IGG 1.56 Immune >0.99 index [facility] Comment: Non-immune <0.90 Equivocal 0.90 - 0.99 Immune >0.99 Performed at: - [place] [place] [id number] Litigation Manager: Evan Valenzuela PhD, Phone: [phone] 05/05/2025 1:40 PM EDT 05/05/2025 1:50 PM EDT Narrative CLINISYNC - 05/06/2025 8:09 AM EDT Pee Eliane DO CLINISYNC Final Result Performing Organization Address City/[facility]/ZIP Co de Phone Number [facility] * (ABNORMAL) ALL CBC WITH AUTO DIFF (05/05/2025 1:40 PM EDT) [facility] WBC 10.6 4.0 - 11.0 10 3/uL [facility]H TBH RBC 5.06 4.20 - 5.40 10 6/uL [facility] TB HGB 13.2 12.0 - 16.0 g/dL TB TB HCT 39.0 36.0 - 48.0 % [facility]H MCV 77.1(L) 81.0 - 99.0 fL TB TB MCH 26.1(L) 26.7 - 34.0 pg TB[facility] TB MCHC 33.8 29.9 - 35.2 g/dL TB [...] CLINISYNC - 05/05/2025 2:59 PM EDT Pee Oseguerao DO CLINISYNC Final Result [facility] * TB DRUG SCREEN RAPID (URINE) (05/05/2025 1:25 PM EDT) Pathologist [facility] CANNABINOID SCREEN URINE NEGATIVE NEGATIVE [facility] PHENCYCLIDINE [...] - 05/05/2025 2:55 PM EDT us Pee Eliane DO CLINISYNC Final Result [facility] * US OB transvaginal (04/07/2025 9:55 AM [...] II, MD, PHD at 08-Apr-2025 10:16:34 AM [facility] Procedure Note Wanda Vargas MD - [...] WANDA VARGAS II, MD, PHD 10:16:34 AM [facility] us Pee Eliane DO IMG OB US PROCEDURES Final Resul t * (ABNORMAL) POCT , urine manually resulted (03/27/2025 10:07 AM EDT) Preg Test, Ur Positive Negative Urine 03/27/2025 10:0 7 AM EDT Pee Eliane DO POINT OF CARE TEST ENTER/EDIT OR DERABLES Final Result * TB PREG QUANT HCG (02/27/2025 7:21 AM EDT) Only the most recent of2 resultswithin the time period is included. HCG QUANTITATIVE 780 mIU/mL [facility] Comment: 5-50 0.2-1 WEEK 50-500 1-2 WEEKS 100-5,000 2-3 WEEKS 500-10,000 3-4 WEEKS 1,000-50,000 4-5 WEEKS 10,000-100,000 5-6 WEEKS 15,000-200,000 6-8 WEEKS 10,000-100,000 2-3 MONTHS 02/27/2025 7:21 AM EDT 02/27/2025 7:22 AM EDT Narrative CLINISYNC - 02/27/2025 7:57 AM EDT us Pee Eliane DO CLINISYNC Final Result [facility] * Pap Smear (04/22/2024 12:00 AM EDT) Swab Cervical swab / Unknown Diane NEW LAB CYTOLOGY ORDERABLES Final Re sult EXTERNAL LAB from Last 3 Months or Most Recently Relevant to Health Maintenance Insurance [employer]
--- OUTSIDE RECORDS SUMMARY | 2025-05-19 14:19 | XMS_ITS | Encounter Summary ---
Author Organization [facility] Address [address] [place] [address] Care Team Providers Care Respiratory Therapy Technician Name Role Phone Unavailable Primary Care Provider Unavailabl e Encounter Details Date Type Department Care Team (Late st Contact Info) Description 05/12/2025 Clinisync Result Encounter [facility] External Department Unsolicited Pee Del Rio DO [address] [place] [address] Social History Tobacco Use Types Packs/Day Years [...] Routine [facility] [address] [place] [phone] Pee Del Rio DO [address] [place] [address] documented as of this encounter Procedures Procedure Name Priority Date/Time Associated Diagnosis Comments IGP,APTIMA HPV,AGE GDLN Routine 05/12/2025 9:53 AM EDT documented in this encounter Results * IGP,APTIMA HPV,AGE GDLN (05/12/2025 9:53 AM EDT) AGE GDLN ACOG TESTING Note . [facility] Comment: TESTS RESULT FLAG UNITS REF RANGE LAB Clinician Provided Cytology Information Source.............Endocervix Other.............. No. of containers..01 ThinPrep Vial Age Algo ACOG Veronica... 30-65 01 FLAG LEGEND: L-Low Normal,H-High Normal,LL-Alert Low,HH-Alert High <-Panic Low,>-Panic High,A-Abnormal,AA-Critical Abnormal Performed at: 01 =[facility] [place] [address] Sonam Iverson MD, IGP, APTIMA HPV, RFX 16/18[birth year]45 Note . [facility] Comment: TESTS RESULT FLAG UNITS REF RANGE LAB DIAGNOSIS: 02 NEGATIVE FOR INTRAEPITHELIAL LESION OR MALIGNANCY. THIS SPECIMEN WAS RESCREENED PART OF OUR CARPENTER ASSISTANT PROGRAM. Specimen adequacy: 02 Satisfactory for evaluation. No endocervical component is identified. An endocervical component is not commonly seen in the patient. Performed by: 02 Fidelia Lorenz, Airplane Mechanic (ASCP) QC reviewed by: 02 Jeimy Grigsby, Airplane Mechanic (ASCP) . 02 Note: Note 02 The Pap [...] <-Panic Low,>-Panic High,A-Abnormal,AA-Critical Abnormal Performed at: [address] [place] [address] Sonam Iverson MD, HPV APTIMA Negative Negative TB Comment: This nucleic acid amplification test detects fourteen high- risk HPV types (16,18,31,33,35,39,45,51,52,56,58,59,66,68) without differentiation. Performed at: = - [facility] [id number] Technical Services Assistant: Sonam Iverson MD, Phone: [phone] Performed at: [facility] [address] [place], [place] [id number] Technical Services Assistant: Sonam Iverson MD, Phone: [phone] 05/12/2025 9:53 AM EDT 05/12/2025 3:19 PM EDT Narrative [facility] - 05/15/2025 1:08 PM EDT SPATULA-ALONE ENDOCERVIX us Pee Del Rio DO LAB BLOOD ORDERABLES Final Resul t [facility] documented in this encounter Visit Diagnoses Not on filedocumented in this encounter
--- OUTSIDE RECORDS SUMMARY | 2025-05-19 14:19 | XMS_ITS | Encounter Summary ---
Author Organization [facility] Address [address] [place] [address] Care Team Providers Care Hub Lead Name Role Phone Unavailable Primary Care Provider Unavailabl e Encounter Details Date Type Department Care Team (Late st Contact Info) Description 12/03/2024 Abstract [facility]FF[facility] [address] [place] [address] Emi Ventura LPN Social History Tobacco [...] Routine ERVIN GRIFFITHS [address] [place] [phone] Pee Del Rio DO [address], [place] [id number] documented as of this encounter Visit Diagnoses Not on filedocumented in this encounter
--- OUTSIDE RECORDS SUMMARY | 2025-05-19 14:19 | XMS_ITS | Encounter Summary ---
Author Organization [facility] Address [address] [place] [address] Care Team Providers Care Milling Machinist Name Role Phone Unavailable Primary Care Provider Unavailabl e Encounter Details Date Type Department Care Team (Late Contact Info) Description 05/12/2025 Abstract [facility]RIFF[facility] [address] [place] [address] Pee Del Rio DO [facility] [address], [facility] Social History Tobacco Use Types Packs/Day Years [...] Routine [facility]ena [facility]RIFFITHS [address] [place] [phone] Pee Del Rio DO [facility] [address], [place] [id number] documented as of this encounter Visit Diagnoses Not on filedocumented in this encounter
--- OUTSIDE RECORDS SUMMARY | 2025-05-19 14:19 | XMS_ITS | Encounter Summary ---
Author Organization [facility] Address [address] [place] [address] Care Team Providers Care Motor Bus Driver Name Role Phone Unavailable Primary Care Provider Unavailabl e Encounter Details Date Type Department Care Team (Late Contact Info) Description 05/14/2025 Abstract [facility]RIFF[facility] [address] [place] [address] Pee Del Rio DO [facility] [address], [facility]11 Social History Tobacco Use Types [...] EDT Routine [facility]ena GRIFFITHS [address] [place] [phone] Pee Del Rio DO [facility] [address], [place] [id number] documented as of this encounter Visit Diagnoses Not on filedocumented in this encounter
--- OUTSIDE RECORDS SUMMARY | 2025-05-19 14:19 | XMS_ITS | Encounter Summary ---
Author Organization [facility] Address [address] [place] [address] Care Team Providers Care Ad Operations Specialist Name Role Phone Unavailable Primary Care Provider Unavailabl e Reason for Visit * Reason Onset Date Comments Med Refill 12/02/2024 Encounter Details Date Type Department Care Team (Late st Contact Info) Description 12/02/2024 Telephone [facility] [address] [place] [address] Pee Del Rio DO [address] [place] [address] Med Refill Social History Tobacco Use Types [...] Routine [facility] OBDYLON [address] [place] [address] Pee Del Rio DO [address] [place] [address] documented as of this encounter Visit Diagnoses Not on filedocumented in this encounter
--- OUTSIDE RECORDS SUMMARY | 2025-05-19 14:19 | XMS_ITS | Encounter Summary ---
Author Organization [facility] Address [address] [place] [address] Care Team Providers Care Stacker Operator Name Role Phone Unavailable Primary Care Provider Unavailabl e Encounter Details Date Type Department Care Team (Late st Contact Info) Description 11/06/2024 Abstract [facility] [address] [place] [phone] Pee Del Rio DO [address], [facility]11 Social History Tobacco Use Types Packs/Day Years [...] Routine ERVIN GRIFFITHS [address] [place] [phone] Pee Del Rio DO [address], [facility]11 documented as of this encounter Visit Diagnoses Not on filedocumented in this encounter
--- OUTSIDE RECORDS SUMMARY | 2025-05-19 14:19 | XMS_ITS | Encounter Summary ---
Author Organization [facility] Address [address] [place] [address] Care Team Providers Care Clay Thrower Name Role Phone Unavailable Primary Care Provider Unavailabl e Encounter Details Date Type Department Care Team (Late st Contact Info) Description 05/12/2025 Telephone [facility] Dalia [facility] [address] [place] [phone] Arline Marcos LPN Social History Tobacco Use [...] Miscellaneous Notes * Telephone Encounter - Arline Marcos LPN - 05/12/2025 10:52 AM EDT Please refer to [facility] for AMA and possible vanishing twin. documented in this encounter Plan of Treatment Upcoming Encounters Date Type Department Care Team (Late st Contact Info) Description 06/09/2025 9:00 AM EDT Routine [facility] Dalia [facility] [address] [place] [address] Pee Del Rio, [address] [place] [address] documented as of this encounter Visit Diagnoses Not on filedocumented in this encounter
--- OUTSIDE RECORDS SUMMARY | 2025-05-19 14:19 | XMS_ITS | Encounter Summary ---
Author Organization [facility] Address [address] [place] [address] Care Team Providers Care Tinware Lithograph Press Operator Name Role Phone Unavailable Primary Care Provider Unavailabl e Encounter Details Date Type Department Care Team (Late st Contact Info) Description 11/11/2024 Abstract [facility] [address] [facility] [place] [phone] Pee Del Rio DO [address], [facility] [...] Routine ERVIN GRIFFITHS [address] [place] [phone] Pee Del Rio DO [address], [facility]11 documented as of this encounter Visit Diagnoses Not on filedocumented in this encounter
--- OUTSIDE RECORDS SUMMARY | 2025-05-19 14:19 | XMS_ITS | Encounter Summary ---
Author Organization [facility] Address [address] [place] [address] Care Team Providers Care Linseed Cake Trimmer Name Role Phone Unavailable Primary Care Provider Unavailabl e Encounter Details Date Type Department Care Team (Late st Contact Info) Description 11/12/2024 Abstract [facility] [address] [facility] [place] [phone] Pee Del Rio DO [address], [facility]11 Social History Tobacco Use Types Packs/Day Years [...] Routine ERVIN GRIFFITHS [address] [place] [phone] Pee Del Rio DO [address], [facility]11 documented as of this encounter Visit Diagnoses Not on filedocumented in this encounter
--- OUTSIDE RECORDS SUMMARY | 2025-05-19 14:19 | XMS_ITS | Encounter Summary ---
Author Organization [facility] Address [address] [place] [address] Care Team Providers Care Lower School Spanish Teacher Name Role Phone Unavailable Primary Care Provider Unavailabl e Encounter Details Date Type Department Care Team (Late st Contact Info) Description 12/30/2024 Abstract [facility] [address] [facility] [place] [phone] Pee Del Rio DO [address], [facility]11 Social History Tobacco Use Types Packs/Day Years [...] EDT Routine ERVIN GRIFFITHS [address] [place] [phone] Pee Del Rio DO [address], [facility]11 documented as of this encounter Visit Diagnoses Not on filedocumented in this encounter
--- OUTSIDE RECORDS SUMMARY | 2025-05-19 14:19 | XMS_ITS | Encounter Summary ---
Author Organization [facility] Address [address] [place] [address] Care Team Providers Care Park Worker Name Role Phone Unavailable Primary Care Provider Unavailabl e Encounter Details Date Type Department Care Team (Late st Contact Info) Description 05/05/2025 Clinisync Result Encounter [facility]S External Department Unsolicited Pee Del Rio DO [address] [place] [address] Social History Tobacco Use Types Packs/Day Years [...] Routine [facility] [address] [place] [phone] Pee Del Rio DO [address] [place] [address] documented as of this encounter Procedures Procedure [...] Negative Negative TB Comment: Performed at: - Lab[address] [id number] Internal Auditor: Evan Valenzuela PhD, Phone: [phone] 05/05/2025 1:40 PM EDT 05/05/2025 1:50 PM EDT Narrative J[facility] - 05/06/2025 12:09 PM EDT us Pee Eliane DO LAB BLOOD ORDERABLES Final Resul t [facility] * RAPID PLASMA REAGIN, QUANT (05/05/2025 1:40 PM EDT) Pathologist [facility] RAPID PLASMA REAGIN, QUANT Non Reactive NonRea<1: 1 titer [facility] Comment: Please Note: This test does not meet current guidelines for screening and diagnosis of syphilis. This test is intended for following treatment response in patients being treated for syphilis infection. To screen for syphilis infection, a reflex cascade that includes both RPR and a treponema-specific assay should be utilized, such as Treponema pallidum (Syphilis) Screening [place] (563773) or Rapid Plasma Reagin (RPR) Test With Reflex to Quantitative RPR and Confirmatory Treponema pallidum Antibodies (892334). Performed at: [address] [id number] Internal Auditor: Evan Valenzuela PhD, Phone: [phone] 05/05/2025 1:40 PM EDT 05/05/2025 1:50 PM EDT Narrative [facility] - 05/06/2025 12:09 PM EDT Moonfruito DO LAB BLOOD ORDERABLES Final Resul t Performing Organization Address [facility]/ZIP Co de Phone Number [facility] TB * HCV ANTIBODY RFX TO QUANT PCR (05/05/2025 1:40 PM EDT) Pathologist [facility] HCV AB Non Reactive Non Reactive TB INTERPRETATION: Comment . [facility] Comment: Not infected with HCV unless early or acute infection is suspected (which may be delayed in an immunocompromised individual), or other evidence exists to indicate HCV infection. Performed at: [address] [id number] Internal Auditor: Evan Valenzuela PhD, Phone: [phone] 05/05/2025 1:40 PM EDT 05/05/2025 1:50 PM EDT Narrative [facility] - 05/06/2025 8:09 AM EDT Moonfruito DO LAB BLOOD ORDERABLES Final Resul t Performing Organization Address [facility] Co de Phone Number [facility] * ALL RUBELLA IGG AB (05/05/2025 1:40 PM EDT) [facility] RUBELLA ANTIBODIES, IGG 1.56 Immune >0.99 index [facility] Comment: Non-immune <0.90 Equivocal 0.90 - 0.99 Immune >0.99 Performed at: [address] [id number] Internal Auditor: Evan Valenzuela PhD, Phone: [phone] 05/05/2025 1:40 PM EDT 05/05/2025 1:50 PM EDT Narrative [facility] - 05/06/2025 8:09 AM EDT us Pee Eliane DO CLIN[facility] Final Result Performing Organization Address City/[facility]/ZIP Co de Phone Number [facility] * HIV AB/P24 AG WITH REFLEX (05/05/2025 1:40 PM EDT) [facility] HIV AB/P24 AG SCREEN Non Reactive Non Reactive [facility] Comment: HIV-1/HIV-2 antibodies and HIV-1 p24 antigen were NOT detected. There is no laboratory evidence of HIV infection. HIV Negative Performed at: [address] [id number] Internal Auditor: Evan Valenzuela PhD, Phone: [phone] 05/05/2025 1:40 PM EDT 05/05/2025 1:50 PM EDT Narrative [facility] - 05/06/2025 5:07 AM EDT us Pee Eliane DO LAB BLOOD ORDERABLES Final Resul t [facility] * MLR HEMOGLOBIN A1C (05/05/2025 1:40 PM EDT) [facility] GLYCOHEMOGLOBIN A1C 5.2 4.5 - 6.2 % [facility] Comment: ADA RECOMMENDED LIMIT 4.0 - 6.0 ADA THERAPEUTIC TARGET < 7.0 ACTION SUGGESTED > 7.0 ESTIMATED AVERAGE GLUCOSE 103 mg/dL [facility] 05/05/2025 1:40 PM EDT 05/05/2025 1:50 PM EDT Narrative [facility] - 05/05/2025 7:28 PM EDT us Pee Eliane DO [facility] Final Result [facility] TB * ALL TYPE AND SCREEN (05/05/2025 1:40 PM EDT) Pathologist [facility] BLOOD TYPE O Positive [facility] ANTIBODY SCREEN NEGATIVE [facility] 05/05/2025 1:40 PM EDT 05/05/2025 1:50 PM EDT Narrative [facility] - 05/05/2025 6:24 PM EDT [facility] , Pee Eliane DO CLIN[facility] Final Result Performing Organization Address City/[facility]/ZIP Co de Phone Number [facility] TB * (ABNORMAL) ALL CBC WITH AUTO DIFF (05/05/2025 1:40 PM EDT) [facility] TB WBC 10.6 4.0 - 11.0 10 [...] Del Rio DO [facility] Final Result [facility] documented in this encounter Visit Diagnoses Not on filedocumented in this encounter
--- OUTSIDE RECORDS SUMMARY | 2025-05-19 14:19 | XMS_ITS | Encounter Summary ---
Author Organization [facility] Address [address] [place] [address] Care Team Providers Care Admission Nurse Name Role Phone Unavailable Primary Care Provider Unavailabl e Encounter Details Date Type Department Care Team (Late st Contact Info) Description 11/07/2024 Abstract [facility] [address] [facility] [place] [phone] Pee Del Rio DO [address], [facility]11 Social History Tobacco Use Types Packs/Day Years [...] EDT Routine ERVIN GRIFFITHS [address] [place] [phone] Pee Del Rio DO [address], [facility]11 documented as of this encounter Visit Diagnoses Not on filedocumented in this encounter
--- OUTSIDE RECORDS SUMMARY | 2025-05-19 14:48 | XMS_ITS | CCD ---
Author Organization [facility] Care Team Providers Care Banking Supervisor Name Role Phone Giovany Josue Unavailable Unavail [...] Admitting Unavailable Daisha, Brianna L Admitting Unavailable Adisha, Brianna Araujo Attending Unavailable Daisha, Brianna L Attending Unavailable ELIANE, Pee R Attending Unavailable ELIANE, Pee R Admitting Unavailable PEE DEL RIO Attending Unavailable PEE DEL RIO Referring Unavailable PEE DEL RIO Attending Unavailable PEE DEL RIO Attending Unavailable Pee DEL RIO R Admitting Unavailable Pee DEL RIO Attending Unavailable ASHISH SEGOVIA Attending Unavailable Medications Current Medications Medication Drug Class(es) Dates Sig (Normalized) Sig (Original) Doxylamine Succinate, Sleep, (UNISOM PO) (8 sources) Start: 03-09-2025 Doxylamine Succinate, Sleep, (UNISOM PO) 03/09/2025 Active FIBER GUMMIES PO (8 sources) Start: 04-06-2025 FIBER GUMMIES PO 04/06/2025 [...] # 10 tab(s), Refills(s) 0, Pharmacy: [facility], 166, cm, 07/25/24 9:47:00 EST, Height/Length [...] Vit-Fe Fumarate-FA ( VITAMIN AND MINERAL PO) (8 sources) Start: 04-06-20 25 Vit-Fe Fumarate-FA ( VITAMIN AND MINERAL PO) 04/06/2025 Active promethazine hydrochloride 12.5 mg oral tablet (4 sources) Phenothiazine Start: 05-12-20 End: 08-10-20 take 1 tablet by mouth every four hours for nausea and nausea promethazine (Phenergan) 12.5 MG tablet Indications: Nausea Take 1 tablet (12.5 mg) by mouth every 4 (four) hours 180 tablet 1 05/12/2025 08/10/2025 Active pyridoxine hydrochloride 25 mg oral tablet (8 sources) Start: 03-09-20 pyridoxine (Vitamin B-6) 25 [...] 250 mg by mouth once daily. levonorgestrel 0.775463 mg/hr intrauterine system (1 source) Progestin, Progestin-containing [...] DAYS., # 30 tab(s), Refills(s) 0, Pharmacy: [facility] 1155, 166, cm, 07/25/24 9:47:00 [...] Translations: [Nausea] 03-27-2025 Episodic Other endocrine disorders (14 sources) Polycystic ovary syndrome; Translations: [Polycystic ovarian [...] 05-19-2020 Episodic Other and delivery including normal (18 sources) Urine test positive; Translations: [Encounter for [...] Test Name Value Interpretation Reference Range Facility IGP,APTIMA HPV,AGE GDLNon AGE GDLN ACOG TESTING Note . [facility] Comment on above: TESTS RESULT FLAG UN ITS REF RANGE LAB Clinician Provided Cytology Information Source.............[employer] Other.............. No. of containers..01 ThinPrep Vial Age Ezrao ACOG Veronica... 3065 FLAG LEGEND: L-Low Normal,H-High Normal,LL-Alert Low,HH-Alert High <-Panic Low,>-Panic High,A-Abnormal,AA-Critical Abnormal Performed at: 01 =G [address] [phone] Sonam Iverson MD, HPV APTIMA Negative Negative [facility] Comment on above: This nucleic acid am plification test detects fourteen high- risk HPV types (16,18,31,33,35,39,45,51,52,56,58,59,66,68) without differentiation. Performed at: =[address] [id number] Roller Print Tender: Sonam Iverson MD, Phone: [phone] Performed at: [address] [id number] Rol[employer] Tender: Sonam Iverson MD, Phone: [phone] IGP, APTIMA HPV, RFX 16/18,45 Note . [facility] Comment on above: TESTS RESULT FLAG UN ITS REF RANGE LAB DIAGNOSIS: 02 NEGATIVE FOR INTRAEPITHELIAL LESION OR MALIGNANCY. THIS SPECIMEN WAS RESCREENED PART OF OUR [employer] PROGRAM. Specimen adequacy: 02 Satisfactory for evaluation. No endocervical component is identified. An endocervical component is not commonly seen in the patient. Performed by: 02 Fidelia Lorenz, Fruit Press Operator ([facility]) QC reviewed by: 02 Jeimy Grigsby, Fruit Press Operator ([facility]) . 02 Note: Note 02 The Pap [...] <-Panic Low,>-Panic High,A-Abnormal,AA-Critical Abnormal Performed at: [address] [phone] Sonam Iverson MD, SPATULA-ALONE [facility] RECURRENT VAGINITIS (HTRX)on 05-13-2025 ATOPOBIUM VAGINAE 0 [facility] ATOPOBIUM VAGINAE Not detected [facility] BVAB 2,3 (BACTERIAL VAGINOSIS ASSOCIATED BACTERIA 2, 3); MOBILUNCUS SPP 0 [facility] BVAB 2,3 (BACTERIAL VAGINOSIS ASSOCIATED BACTERIA 2, 3); MOBILUNCUS SPP Not detected [facility] TOÑO ALBICANS, PARAPSILOSIS, TROPICALIS 0 [facility] TOÑO ALBICANS, PARAPSILOSIS, TROPICALIS Not detected [facility] TOÑO GLABRATA 0 [facility] TOÑO GLABRATA Not detected [facility] TOÑO KRUSEI 0 [facility] TOÑO KRUSEI Not detected [facility] CHLAMYDIA TRACHOMATIS 0 [facility] CHLAMYDIA TRACHOMATIS Not detected N [facility] GARDNERELLA VAGINALIS 0 [facility] GARDNERELLA VAGINALIS Not detected N [facility] MEGASPHAERA (TYPES 1, 2) 0 [facility] MEGASPHAERA (TYPES 1, 2) Not detected [facility] MYCOPLASMA GENITALIUM 0 [facility] MYCOPLASMA GENITALIUM Not detected N [facility] NEISSERIA GONORRHOEAE 0 [facility] NEISSERIA GONORRHOEAE Not detected N [facility] TRICHOMONAS VAGINALIS 0 [facility] TRICHOMONAS VAGINALIS Not detected N [facility] Urinalysis macro (dipstick) panel (U)on 05-12-2025 Bilirubin, UA Negative Negative - 4(70) +++ mg/dL [facility] Blood, UA Negative Negative - 50 Jerry/mcL [facility] Clarity, UA Clear [facility] Color, UA Yellow [facility] Glucose, UA Negative Negative - 1999(110) ++++ mg/dL [facility] Interpretation and review of laboratory results Abnormal [facility] Ketones, UA Negative Negative - 160(16) ++++ mg/dL [facility] Leukocytes, UA Negative Negative - 500+++ Roberta/mcL [facility] Nitrite, UA Negative Negative - Positive [facility] pH, UA 1 5 - 9 [facility] Protein, UA Negative Negative - 1999(20) ++++ mg/dL [facility] Spec Grav, UA 1.015 1 - 1.03 [facility] Urobilinogen, UA 0.2 0.2 - 12 mg/dL [facility] BOX TESTon 05-05-2025 BOX TEST SENT OUT YES [facility] BOX1 UNITY [facility] BOX2 05/05/25 [facility] US OB TRANSVAGINALon 025 OB TRANSVAGINAL EXAM: US OB TRANSVAGINAL HISTORY: [...] II, MD, PHD at 08-Apr-2025 10:16:34 AM [facility] [employer] Normal Not Available Comment on above: Order Comment: US OB VIABILITY PLEASE PERFORM TRANSVAGINAL ULTRASOUND IF INDICATED Patient's last menstrual period was 01/25/2025. HCG ( test) Ql (U)o n 03-27-2025 Interpretation and review of laboratory results Abnormal [facility] Preg Test, Ur Positive Negative [facility] OB TRANSVAGINALon 025 US OB TRANSVAGINAL FINDINGS: [...] UA Negative Negative - 4(70) +++ mg/dL [facility] Blood, UA Negative Negative - 50 Jerry/mcL [facility] Clarity, UA Clear [facility] Color, UA Yellow [facility] Glucose, UA Negative Negative - 1999(110) ++++ mg/dL [facility] Interpretation and review of laboratory results Normal [facility] Ketones, UA Negative Negative - 160(16) ++++ mg/dL [facility] Leukocytes, UA Negative Negative - 500+++ Roberta/mcL [facility] Nitrite, UA Negative Negative - Positive [facility] pH, UA 6 5 - 9 [facility] Protein, UA Negative Negative - 2000(20) ++++ mg/dL [facility] Spec Grav, UA 1.025 1 - 1.03 [facility] Urobilinogen, UA 0.2 0.2 - 12 mg/dL [facility] TBH PREG QUANT HCGon 02-27- 025 HCG QUANTITATIVE 780 mIU/mL [facility] Comment on above: 5-50 0.2-1 WEEK 50-500 1-2 WEEKS 100-5,000 2-3 WEEKS 500-10,000 3-4 WEEKS 1,000-50,000 4-5 WEEKS 10,000-100,000 5-6 WEEKS 15,000-200,000 6-8 WEEKS 10,000-100,000 2-3 MONTHS [facility] TBH PREG QUANT HCGon 025 HCG QUANTITATIVE 308 mIU/mL [facility] Comment on above: 5-50 0.2-1 WEEK 50-500 1-2 WEEKS 100-5,000 2-3 WEEKS 500-10,000 3-4 WEEKS 1,000-50,000 4-5 WEEKS 10,000-100,000 5-6 WEEKS 15,000-200,000 6-8 WEEKS 10,000-100,000 2-3 MONTHS [facility] ALL PROGESTERONEon 5 PROGESTERONE 17.3 ng/mL . [facility] Comment on above: Follicular phase 0.1 - 0.9 Luteal phase 1.8 - 23.9 Ovulation phase 0.1 - 12.0 First trimester 11.0 - 44.3 Second trimester 25.4 - 83.3 Third trimester 58.7 - 214.0 Postmenopausal 0.0 - 0.1 Performed at: [address] [id number] Roller Print Tender: Evan Valenzuela PhD, Phone: [phone] [facility] DHEAon 12-30-2024 DHEA [Mass/Vol] 139 ng/dL Invalid Interpretation Code 35-621 [facility] Comment on above: Result Comment: This test was developed and its performance characteristics determined by [facility]. It has not been cleared or approved by the Food and Drug Administration. Performed at: [address] [id number] MD Everett Buckner Performed By: #### 1 [id number] #### [facility] [address] [place] [address] Progesteroneon 11-25-2024 Progesterone Lvl 5.59 ng/mL Invalid Interpretation Code [facility] Comment on above: Result Comment: 'F N ON FOLLICULAR = 0.10 - 0.60' 'LUTEAL = 3.00 - 17.5' 'MIDLUTEAL = 3.30 - 18.6' 'POST-MENOPAUSE = 0.10 - 0.40' '-FIRST TRIMESTER = 8.30 - 66.5' 'SECOND TRIMESTER = 18.9 - 66.1' 'THIRD TRIMESTER = 35.8 - 312.4' 'MALES = 0.14 - 2.06' Performed By: #### 2 [id number] #### [facility] [address] [place] [address] US Pelvis Non-OB Completeon 11-12-2024 US Pelvis [...] MD Transcribed by: MARVA Technologist: Norman CLEMENS [facility] US Transvaginal Non-OBon US Transvaginal Non-OB Exam Date/Time: 11/11/2024 12:54 EST Reason for Exam: E28.2 Report See ultrasound pelvis non-OB for report of ultrasound pelvis transvaginal. Ordering Provider: Pee DEL RIO FINAL REPORT Dictated: 11/12/2024 12:14 pm Desmond Quinteros MD Signed (Electronic Signature): 11/12/2024 12:14 pm Signed by: Desmond Quinteros MD Transcribed by: MARVA Technologist: Norman CLEMENS [facility] Anti-Mullerian Hormone (AMH) on 11-10-2024 Mullerian inhibiting substance [Mass/Vol] 5.77 ng/mL Invalid Interpretation Code [facility] Comment on above: Result Comment: For assays employing antibodies, the possibility exists for interference by heterophile antibodies in the samples.1 1.Andre Araujo. Interferences in Immunoassays - still a threat. Clin. Chem. 2000; 46: 4261-2084. This test was developed and its performance characteristics determined by [employer]. It has not been cleared or approved by the Food and Drug Administration. Reference Range: Females 36 - 40y: 0.42 - 8.34 Median 1.69 AMH concentrations of >= 1.06 ng/mL is correlated with a better response to ovarian stimulation, produced more retrievable oocytes and higher odds of live according to Gleicher et al. Fertility and Sterility. 2010: 94:7953-4892. The current AMH test method correlates with [...] exclude an AMH-secreting ovarian tumor. Performed at: [facility] [address] [place] [id number] MD Rajeev Lala Performed By: #### 1 [id number] #### [facility] [address] [place] [address] DHEAon 11-10-2024 DHEA [Mass/Vol] 101 ng/dL Invalid Interpretation Code 31-762 [facility] Comment on above: Result Comment: This test was developed and its performance characteristics determined by [employer]. It has not been cleared or approved by the Food and Drug Administration. Performed at: [address] [id number] MD Everett Buckner Performed By: #### 1 [id number] #### [facility] [address] [place] [address] DHEASon 11-10-2024 DHEA-S [Mass/Vol] 91.8 microgram/dL Invalid Interpretation Code 57.3-279.2 [facility] Comment on above: Result Comment: Perf ormed at: [address] [id number] PhD Bianca Gordon Performed By: #### 1 [id number] #### [facility] [address] [place] [address] FSHon 11-07-2024 Follitropin Qn 5.2 m[IU]/mL Invalid Interpretation Code [facility] Comment on above: Result Comment: Adul t Female Range Follicular phase 3.5 - 12.5 Ovulation phase 4.7 - 21.5 Luteal phase 1.7 - 7.7 Postmenopausal 25.8 - 134.8 Performed at: [address] [id number] PhD Bianca Gordon Performed By: #### 2 [id number] #### [facility] [address] [place] [address] LHon 11-07-2024 Lutropin Qn 11.1 m[IU]/mL Invalid Interpretation Code [facility] Comment on above: Result Comment: Adul t Female Range Follicular phase 2.4 - 12.6 Ovulation phase 14.0 - 95.6 Luteal phase 1.0 - 11.4 Postmenopausal 7.7 - 58.5 Performed at: [address] [id number] PhD Bianca Gordon Performed By: #### 2 [id number] #### [facility] [address] [place] [address] BhCG Quanton 11-05-2024 HCG.beta subunit Qn m[IU]/mL Normal 1-3 [facility] Comment on above: Result Comment: 'F N ON < 1 - 3' ' 0.2 - 1 WEEK = 5 TO 50' ' 1 - 2 WEEKS = 50 - 500' ' 2 - 3 WEEKS = 100 - 5000' ' 3 - 4 WEEKS = 500 - 93088' ' 4 - 5 WEEKS = 1000 - 81900' ' 5 - 6 WEEKS = 12908 - 557340' ' 6 - 8 WEEKS = 87703 - 585051' ' 8 - 12 WEEKS = 73325 - 419243' Performed By: #### 2 [id number] #### [facility] [address] [place] [address] CBC w/ Auto Diffon Basophils/100 WBC (Bld) 0.6 % Normal 0.0-2.0 [facility] Comment on above: Performed By: #### 2 [id number] #### [facility] [address] [place] [address] Basophils/Leukocytes Auto (Bld) [Pure # fraction] 0.0 E9/L Normal 0.0-0.2 [facility] Comment on above: Performed By: #### 2 [id number] #### [facility] [address] [place] [address] Eosinophils (Bld) [#/Vol] 0.1 E9/L Normal 0.0-0.5 [facility] Comment on above: Performed By: #### 2 [id number] #### [facility] [address] [place] [address] Eosinophils/100 WBC (Bld) 0.7 % Normal 0.0-8.0 [facility] Comment on above: Performed By: #### 2 081000 #### [facility] [address] [place] [address] Erythrocyte distribution width (RBC) [Ratio] 14.0 % Normal 10.9-14.2 [facility] Comment on above: Performed By: #### 2 [id number] #### [facility] [address] [place] [address] Hematocrit (Bld) [Volume fraction] 44.7 % Normal 34.0-46.0 [facility] Comment on above: Performed By: #### 2 [id number] #### [facility] [address] [place] [address] Hemoglobin (Bld) [Mass/Vol] 15.0 g/dL Normal 12.0-16.0 [facility] Comment on above: Performed By: #### 2 [id number] #### [facility] [address] [place] [address] Lymphocytes (Bld) [#/Vol] 2.3 E9/L Normal 1.0-4.0 [facility] Comment on above: Performed By: #### 2 [id number] #### [facility] [address] [place] [address] Lymphocytes/100 WBC (Bld) 26.2 % Normal 14.0-50.0 [facility] Comment on above: Performed By: #### 2 [id number] #### [facility] [address] [place] [address] MCH (RBC) [Entitic mass] 27.3 pg Normal 27.0-34.0 [facility] Comment on above: Performed By: #### 2 [id number] #### [facility] [address] [place] [address] MCHC (RBC) [Mass/Vol] 33.5 g/dL Normal 31.4-36.0 [facility] Comment on above: Performed By: #### 2 [id number] #### [facility] [address] [place] [address] MCV (RBC) [Entitic vol] 81.3 fL Normal 80.0-100.0 [facility] Comment on above: Performed By: #### 2 [id number] #### [facility] [address] [place] [address] Monocytes (Bld) [#/Vol] 0.5 E9/L Normal 0.2-1.0 [facility] Comment on above: Performed By: #### 2 850962 #### [facility] [address] [place] [address] Neutrophils (Bld) [#/Vol] 5.7 E9/L Normal 2.0-7.5 [facility] Comment on above: Performed By: #### 2 176828 #### [facility] [address] [place] [address] Neutrophils/100 WBC (Bld) 66.3 % Normal 36.0-75.0 [facility] Comment on above: Performed By: #### 2 327356 #### [facility] [address] [place] [address] Platelet mean volume (Bld) [Entitic vol] 7.5 fL Normal 6.4-10.8 [facility] Comment on above: Performed By: #### 2 [id number] #### [facility] [address] [place] [address] Platelets (Bld) [#/Vol] 302.0 E9/L Normal 150.0-500.0 [facility] Comment on above: Performed By: #### 2 876369 #### [facility] [address] [place] [address] RBC (Bld) [#/Vol] 5.5 E12/L Normal 4.3-5.9 [facility] Comment on above: Performed By: #### 2 043177 #### [facility] [address] [place] [address] WBC corrected for nucl RBC Auto (Bld) [#/Vol] 8.6 E9/L Normal 4.0-11.0 [facility] Comment on above: Performed By: #### 2 [id number] #### [facility] [address] [place] [address] CHEMISTRYOrdered By: SYSTEM SYSTEM on 11-05-2024 Free [...] 3 - 4 WEEKS = 500 - 49719' ' 4 - 5 WEEKS = 1000 - 59714' ' 5 - 6 WEEKS = 36473 - 347342' ' 6 - 8 WEEKS = 59468 - 038682' ' 8 - 12 WEEKS = 21051 - 493224' TSH Qn 0.99 m[IU]/L Normal 0.34 - 5.60 mcIU/mL Rem[facility] Chem CHEMISTRYOrdered By: Catherine Armenta on 11-05-2024 HbA1c (Bld) [Mass fraction] 5.3 % Normal <=5.9% [facility] ChemAutoSS Free T4on 11-05-2024 Free T4 [Mass/Vol] 0.89 ng/dL Normal 0.58-1.64 [facility] Comment on above: Performed By: #### 2 [id number] #### [facility] [address] [place] [address] HEMATOLOGYOrdered By: SYSTEM SYSTEM on 11-05-2024 Basophils/100 [...] Normal 4.0 - 11.0 E9/L Remisol Heme EshV0fel 11-05-2024 HbA1c (Bld) [Mass fraction] 5.3 % Normal <=5.9 [facility] Comment on above: Performed By: #### 7 [id number] #### [facility] [address] [place] [address] Lab Miscellaneous-LCon 11-05 Lab Miscellaneous orderable test Invalid Interpretation Code [facility] Comment on above: Performed By: #### 1 [id number] #### [facility] [address] [place] [address] Lab Miscellaneous Orderable test Invalid Interpretation Code [facility] Comment on above: Performed By: #### 1 [id number] #### [facility] [address] [place] [address] Lab Miscellaneous Orderable test Invalid Interpretation Code [facility] Comment on above: Performed By: #### 1 [id number] #### [facility] [address] [place] [address] Test Code 75414 Invalid Interpretation Code [facility] Comment on above: Performed By: #### 1 [id number] #### [facility] [address] [place] [address] Test Code 306154 Invalid Interpretation Code [facility] Comment on above: Performed By: #### 1 [id number] #### [facility] [address] [place] [address] Test Name DHEA Invalid Interpretation Code [facility] Comment on above: Performed By: #### 1 [id number] #### [facility] [address] [place] [address] Test Name AMH Invalid Interpretation Code [facility] Comment on above: Performed By: #### 1 [id number] #### [facility] [address] [place] [address] Laboratory - Chemistry and C hemistry - challengeOrdered By: Maria Luisa Lutz on 11-05-2024 Sodium [Moles/Vol] 69501 mmol/L Invalid Interpretation Code [facility] SendOuts No Panel InformationOrdered By: Leia Foote on 11-05-2024 Lab Miscellaneous orderable test Invalid Interpretation Code [facility] SendOutsSS No Panel InformationOrdered By: Maria Luisa Lutz on 11-05-2024 Test Name DHEA Invalid Interpretation Code [facility] Reference Laboratory Testing Ordered By: Maria Luisa Lutz on 11-05-2024 Sodium [Moles/Vol] 866388 mmol/L Invalid Interpretation Code [facility] SendOutsSS Test Name AMH Invalid Interpretation Code [facility] SendOutsSS TSHon 11-05-2024 TSH Qn 0.99 m[IU]/L Normal 0.34-5.60 [facility] Comment on above: Performed By: #### 2 [id number] #### [facility] [address] [place] [address] Family Medicine Office/Clini c Noteon 07-25-2024 Family [...] ASHISH SEGOVIA CNP, FAM Within [address] [place] [phone] Business (1) Additional Instructions: Weight management [...] Recorded 2024-05-01: VIS DATE: 04/22/2021 SARS-CoV-2 (COVID-19) mRNAMUL.ORD![id number] 09/15/2022 Recorded influenza virus vaccine, inactivated 07/10/2022 Recorded 2024-05-01: NULL diphtheria/pertussis , acel/tetanus adult 02/06/2022 Recorded 2024-05-01: VIS DATE: 04/22/2021 influenza virus vaccine, inactivated 09/08/2021 Recorded SARS-CoV-2 (COVID-19) mRNA-1273 vaccine 09/08/2021 Recorded influenza virus vaccine, inactivated 06/29/2021 Rec (more content not included)... Normal [facility] Comment on above: Result Comment: Elec tronically [...] ASHISH SEGOVIA CNP, FAM Within [address] [place] [phone] Business (1) Additional Instructions: Weight management [...] Recorded 2024-05-01: VIS DATE: 04/22/2021 SARS-CoV-2 (COVID-19) mRNAMUL.ORD![id number] 09/15/2022 Recorded influenza virus vaccine, inactivated 07/10/2022 Recorded 2024-05-01: NULL diphtheria/pertussis , acel/tetanus adult 02/06/2022 Recorded 2024-05-01: VIS DATE: 04/22/2021 influenza virus vaccine, inactivated 09/08/2021 Recorded SARS-CoV-2 (COVID-19) (more content not included)... Normal [facility] Comment on above: Result Comment: Elec tronically Signed By: LUCA REMY, ASHISH Hollis\.br\Date and Time Signed: 07/02/24 11:53 EDT Ambulatory [...] for choosing us for your care. Normal [facility] Family Medicine Office/Clini c Noteon 05-01-2024 Family [...] Recorded 2024-05-01: VIS DATE: 04/22/2021 SARS-CoV-2 (COVID-19) mRNAMUL.ORD![id number] 09/15/2022 Recorded influenza virus vaccine, inactivated 07/10/2022 [...] 05/11/2011 Recorde (more content not included)... Normal [facility] Comment on above: Result Comment: Elec tronically Signed By: LUCA REMY, ASHISH Hollis\.br\Date and Time Signed: 05/01/24 11:41 EDT Cytology Cervical or vaginal smear or scraping studyon 04-22-2024 [facility] Ambulatory Visit Summaryon 0 03-25-2024 Ambulatory [...] for choosing us for your care. Normal [facility] Family Medicine Office/Clini c Noteon 03-25-2024 [...] answered. RTC as needed Ordered: Removal IUD 70233 2. BMI 32.0-32.9,adult (Z68.32: Body mass index [...] influenza virus vaccine, inactivated 06/29/2020 Recorded Normal [facility] Comment on above: Result Comment: Elec tronically Signed By: Daisha MILLER, Brianna Araujo\.br\Date and Time Signed: 03/25/24 13:14 EDT CBC w/ Auto Diffon 4 Basophils/100 WBC (Bld) 0.5 % Normal 0.0-2.0 [facility] Comment on above: Performed By: #### 2 [id number] #### [facility] [address] [place] [address] Basophils/Leukocytes Auto (Bld) [Pure # fraction] 0.0 E9/L Normal 0.0-0.2 [facility] Comment on above: Performed By: #### 2 [id number] #### [facility] [address] [place] [address] Eosinophils (Bld) [#/Vol] 0.1 E9/L Normal 0.0-0.5 [facility] Comment on above: Performed By: #### 2 [id number], [id number], 1205148, 7866971 #### [facility] [address] [place] [address] 26970 Eosinophils/100 WBC (Bld) 0.8 % Normal 0.0-8.0 [facility] Comment on above: Performed By: #### 2 907120, 03720953, 9839491, 2632161 #### [facility] [address] [place] [address] 30916 Erythrocyte distribution width (RBC) [Ratio] 13.6 % Normal 10.9-14.2 [facility] Comment on above: Performed By: #### 2 347315, 43569605, 3051860, 7370106 #### [facility] [address] [place] [address] Hematocrit (Bld) [Volume fraction] 46.6 % High 34.0-46.0 [facility] Comment on above: Performed By: #### 2 932696, 35404716, 5928059, 1760091 #### [facility] [address] [place] [address] 15970 Hemoglobin (Bld) [Mass/Vol] 15.6 g/dL Normal 12.0-16.0 [facility] Comment on above: Performed By: #### 2 062988, 21900686, 5398633, 8968795 #### [facility] [address] [place] [address] 21341 Lymphocytes (Bld) [#/Vol] 2.3 E9/L Normal 1.0-4.0 [facility] Comment on above: Performed By: #### 2 744465, 51606309, 2046014, 3478907 #### [facility] [address] [place] [address] 84977 Lymphocytes/100 WBC (Bld) 28.3 % Normal 14.0-50.0 [facility] Comment on above: Performed By: #### 2 579810, 37398722, 2250748, 2548346 #### [facility] [address] [place] [address] 83018 MCH (RBC) [Entitic mass] 28.4 pg Normal 27.0-34.0 [facility] Comment on above: Performed By: #### 2 805535, 47155138, 3458776, 9039054 #### [facility] [address] [place] [address] 47242 MCHC (RBC) [Mass/Vol] 33.5 g/dL Normal 31.4-36.0 [facility] Comment on above: Performed By: #### 2 459576, 80648833, 3844180, 9068884 #### [facility] [address] [place] [address] 53033 MCV (RBC) [Entitic vol] 84.7 fL Normal 80.0-100.0 [facility] Comment on above: Performed By: #### 2 499084, 42096457, 9573055, 6655818 #### [facility] [address] [place] [address] 15604 Monocytes (Bld) [#/Vol] 0.6 E9/L Normal 0.2-1.0 [facility] Comment on above: Performed By: #### 2 086215, 16755799, 1923599, 6437973 #### [facility] [address] [place] [address] 82546 Neutrophils (Bld) [#/Vol] 5.2 E9/L Normal 2.0-7.5 [facility] Comment on above: Performed By: #### 2 875590, 00424886, 8459940, 2638314 #### [facility] [address] [place] [address] 97666 Neutrophils/100 WBC (Bld) 63.4 % Normal 36.0-75.0 [facility] Comment on above: Performed By: #### 2 230638, 16040812, 3636415, 9227503 #### [facility] [address] [place] [address] 35649 Platelet mean volume (Bld) [Entitic vol] 7.1 fL Normal 6.4-10.8 [facility] Comment on above: Performed By: #### 2 917692, 14750796, 5650195, 0325665 #### [facility] [address] [place] [address] 50383 Platelets (Bld) [#/Vol] 287.0 E9/L Normal 150.0-500.0 [facility] Comment on above: Performed By: #### 2 126086, 53310922, 6924548, 0756622 #### [facility] [address] [place] [address] 36405 RBC (Bld) [#/Vol] 5.5 E12/L Normal 4.3-5.9 [facility] Comment on above: Performed By: #### 2 098893, 81534836, 4410583, 6466807 #### [facility] [address] [place] [address] WBC corrected for nucl RBC Auto (Bld) [#/Vol] 8.2 E9/L Normal 4.0-11.0 [facility] Comment on above: Performed By: #### 2 269453, 65438249, 3706687, 9521997 #### [facility] [address] [place] [address] CMPon 01-12-2024 Calcium [Mass/Vol] 9.2 mg/dL Normal 8.9-11.1 [facility] Comment on above: Performed By: #### 2 919145, 70646793, 3296260, 9097908 #### [facility] [address] [place] [address] Chloride [Moles/Vol] 105 mmol/L Normal 101-111 [facility] Comment on above: Performed By: #### 2 398168, 97012123, 2299292, 8461980 #### [facility] [address] [place] [address] Glucose [Mass/Vol] 89 mg/dL Normal 55-199 [facility] Comment on above: Performed By: #### 2 885670, 75816998, 0237282, 0771729 #### [facility] [address] [place] [address] Potassium [Moles/Vol] 3.9 mmol/L Normal 3.5-5.3 [facility] Comment on above: Performed By: #### 2 538963, 99752552, 0329966, 0677088 #### [facility] [address] [place] [address] Sodium [Moles/Vol] 138 mmol/L Normal 135-145 [facility] Comment on above: Performed By: #### 2 351354, 25058950, 0848630, 3783081 #### [facility] [address] [place] [address] Urea nitrogen [Mass/Vol] 15 mg/dL Normal 5-21 [facility] Comment on above: Performed By: #### 2 051937, 90973169, 5422946, 4082299 #### [facility] [address] [place] [address] Anion gap [Moles/Vol] 12 mmol/L Normal 6-16 [facility] Comment on above: Performed By: #### 2 775495, 79763291, 8109636, 7378151 #### [facility] [address] [place] [address] CO2 [Moles/Vol] 25 mmol/L Normal 21-31 [facility] Comment on above: Performed By: #### 2 422508, 33858000, 8979616, 5929690 #### [facility] [address] [place] [address] Creatinine [Mass/Vol] 0.7 mg/dL Normal 0.5-1.3 [facility] Comment on above: Performed By: #### 2 613548, 94356053, 3897828, 7952074 #### [facility] [address] [place] [address] Urea nitrogen/Creatinine [Mass ratio] 21 No Units High 10-20 [facility] Comment on above: Performed By: #### 2 494662, 21798598, 3254839, 6044396 #### [facility] [address] [place] [address] Albumin [Mass/Vol] 4.3 g/dL Normal 3.3-5.0 [facility] Comment on above: Performed By: #### 2 849980, 21218284, 6672142, 4639038 #### [facility] [address] [place] [address] Albumin/Globulin (S) [Mass conc ratio] 1.4 Normal 1.1-2.2 [facility] Comment on above: Performed By: #### 2 555421, 00261908, 1247654, 5168206 #### [facility] [address] [place] [address] ALP [Catalytic activity/Vol] 64 Int._Unit/L Normal 21-98 [facility] Comment on above: Performed By: #### 2 625225, 83633327, 8242663, 9703661 #### [facility] [address] [place] [address] ALT No additional P-5'-P [Catalytic activity/Vol] 11 Int._Unit/L Normal 6-46 [facility] Comment on above: Performed By: #### 2 946570, 40468458, 2423888, 2749641 #### [facility] [address] [place] [address] AST [Catalytic activity/Vol] 13 Int._Unit/L Normal 5-43 [facility] Comment on above: Performed By: #### 2 165970, 32086343, 3647590, 4467114 #### [facility] [address] [place] [address] Bilirubin [Mass/Vol] 0.5 mg/dL Normal 0.0-1.1 [facility] Comment on above: Performed By: #### 2 366727, 14109711, 4171125, 0765199 #### [facility] [address] [place] [address] Globulin (S) [Mass/Vol] 3.1 g/dL Normal 1.4-4.0 [facility] Comment on above: Performed By: #### 2 710014, 49106405, 1818476, 2349512 #### [facility] [address] [place] [address] Protein [Mass/Vol] 7.4 g/dL Normal 6.0-7.8 [facility] Comment on above: Performed By: #### 2 748315, 18043774, 9319750, 7319059 #### [facility] [address] [place] [address] Consent for Treatmenton 12-17 Consent for Treatment [id number] #1.00TIFF Normal [facility] Lipid Panelon 01-12-2024 Cholesterol [Mass/Vol] 206 mg/dL High 120-200 [facility] Comment on above: Performed By: #### 2 817787, 74524752, 3257566, 3891847 #### [facility] [address] [place] [address] Cholesterol in HDL [Mass/Vol] 58 mg/dL Invalid Interpretation Code [facility] Comment on above: Result Comment: '>= 60 LOW RISK' '<= 40 HIGH RISK' Performed By: #### 2 019400, 84402949, 1664814, 7332879 #### [facility] [address] [place] [address] Cholesterol in LDL [Mass/Vol] 150 mg/dL High <=129 [facility] Comment on above: Performed By: #### 2 068490, 85301146, 3928077, 8329788 #### [facility] [address] [place] [address] Cholesterol in VLDL [Mass/Vol] 16 mg/dL Normal 7-40 [facility] Comment on above: Performed By: #### 2 932258, 15515631, 6865128, 0647603 #### [facility] [address] [place] [address] Triglyceride [Mass/Vol] 79 mg/dL Normal <=149 [facility] Comment on above: Performed By: #### 2 291068, 18758563, 3504167, 5411878 #### [facility] [address] [place] [address] Physician Orderon 01-12-2024 Physician Order [id number] 40#1.00TIFF Normal [facility] eGFRon 01-12-2024 eGFR 115 mL/min/1.73 m2 Normal >=59 [facility] Comment on above: Order Comment: Order added by Discern Expert. Performed By: #### 2 197291, 62959426, 4407005, 1672850 #### [facility] [address] [place] [address] CBC With Platelet and Differ entialon 08-16-2022 Basophils (Bld) [#/Vol] 0.1 10*3/uL Normal 0.0-0.2 [facility] Comment on above: Performed By: #### C BCWD #### [facility] [address] [address] Basophils/100 WBC (Bld) 0.7 % Normal [facility] Comment on above: Performed By: #### C BCWD #### [facility] [address] [place] [address] Eosinophils (Bld) [#/Vol] 0.1 10*3/uL Normal 0.0-0.7 [facility] Comment on above: Performed By: #### C BCWD #### [facility] [address] [place] [address] Eosinophils/100 WBC (Bld) 1.0 % Normal [facility] Comment on above: Performed By: #### C BCWD #### [facility] [address] [place] [address] Erythrocyte distribution width (RBC) [Ratio] 13.5 % Normal 11.5-14.5 [facility] Comment on above: Performed By: #### C BCWD #### [facility] [address] [place] [address] Hematocrit (Bld) [Volume fraction] 44.1 % Normal 37.0-47.0 [facility] Comment on above: Performed By: #### C BCWD #### [facility] [address] [place] [address] Hemoglobin (Bld) [Mass/Vol] 14.9 g/dL Normal 12.0-16.0 [facility] Comment on above: Performed By: #### C BCWD #### [facility] [address] [place] [address] Lymphocytes (Bld) [#/Vol] 2.3 10*3/uL Normal 1.0-4.8 [facility] Comment on above: Performed By: #### C BCWD #### [facility] [address] [place] [address] Lymphocytes/100 WBC (Bld) 28.7 % Normal [facility] Comment on above: Performed By: #### C BCWD #### [facility] [address] [place] [address] MCH (RBC) [Entitic mass] 28.4 pg Normal 27.0-31.3 [facility] Comment on above: Performed By: #### C BCWD #### [facility] [address] [place] [address] MCHC 33.8 % Normal 33.0-37.0 [facility] Comment on above: Performed By: #### C BCWD #### [facility] [address] [place] [address] MCV (RBC) [Entitic vol] 84.2 fL Normal 79.4-94.8 [facility] Comment on above: Performed By: #### C BCWD #### [facility] [address] [place] [address] Monocytes (Bld) [#/Vol] 0.5 10*3/uL Normal 0.2-0.8 [facility] Comment on above: Performed By: #### C BCWD #### [facility] [address] [place] [address] Monocytes/100 WBC (Bld) 6.8 % Normal [facility] Comment on above: Performed By: #### C BCWD #### [facility] [address] [place] [address] Neutrophils (Bld) [#/Vol] 5.0 10*3/uL Normal 1.4-6.5 [facility] Comment on above: Performed By: #### C BCWD #### [facility] [address] [place] [address] Neutrophils/100 WBC (Bld) 62.8 % Normal [facility] Comment on above: Performed By: #### C BCWD #### [facility] [address] [place] [address] Platelets (Bld) [#/Vol] 271 10*3/uL Normal 130-400 [facility] Comment on above: Performed By: #### C BCWD #### [facility] [address] [place] [address] RBC (Bld) [#/Vol] 5.23 10*6/uL Normal 4.20-5.40 [facility] Comment on above: Performed By: #### C BCWD #### [facility] [address] [place] [address] WBC (Bld) [#/Vol] 7.9 10*3/uL Normal 4.8-10.8 [facility] Comment on above: Performed By: #### C BCWD #### [facility] [address] [place] [address] Comprehensive Metabolic Pane chantal 08-16-2022 Albumin [Mass/Vol] 4.3 g/dL Normal 3.5-4.6 [facility] Comment on above: Performed By: #### C MP #### [facility] [address] [place] [address] ALP [Catalytic activity/Vol] 72 U/L Normal 40-130 [facility] Comment on above: Performed By: #### C MP #### [facility] [address] [place] [address] ALT [Catalytic activity/Vol] 15 U/L Normal 0-33 [facility] Comment on above: Performed By: #### C MP #### [facility] [address] [place] [address] Anion gap [Moles/Vol] 12 mmol/L Normal 9-15 [facility] Comment on above: Performed By: #### C MP #### [facility] [address] [place] [address] AST [Catalytic activity/Vol] 19 U/L Normal 0-35 [facility] Comment on above: Performed By: #### C MP #### [facility] [address] [place] [address] Bilirubin [Mass/Vol] 0.3 mg/dL Normal 0.2-0.7 [facility] Comment on above: Performed By: #### C MP #### [facility] [address] [place] [address] Calcium [Mass/Vol] 9.3 mg/dL Normal 8.5-9.9 [facility] Comment on above: Performed By: #### C MP #### [facility] [address] [place] [address] Chloride [Moles/Vol] 104 mmol/L Normal 95-107 [facility] Comment on above: Performed By: #### C MP #### [facility] [address] [place] [address] CO2 [Moles/Vol] 26 mmol/L Normal 20-31 [facility] Comment on above: Performed By: #### C MP #### [facility] [address] [place] [address] Creatinine [Mass/Vol] 0.73 mg/dL Normal 0.50-0.90 [facility] Comment on above: Performed By: #### C MP #### [facility] [address] [place] [address] GFR >60.0 Normal >60 [facility] Comment on above: Result Comment: Lucasi atric calculator link https://www.kidney.org/professionals/kdoqi/gfr_calculatorped Effective Jun 19, [...] secretion. Performed By: #### C MP #### [facility] [address] [place] [address] Globulin (S) [Mass/Vol] 2.8 g/dL Normal 2.3-3.5 [facility] Comment on above: Performed By: #### C MP #### [facility] [address] [place] [address] Glucose [Mass/Vol] 90 mg/dL Normal 70-99 [facility] Comment on above: Performed By: #### C MP #### [facility] [address] [place] [address] Potassium [Moles/Vol] 4.2 mmol/L Normal 3.4-4.9 [facility] Comment on above: Performed By: #### C MP #### [facility] [address] [place] [address] Protein [Mass/Vol] 7.1 g/dL Normal 6.3-8.0 [facility] Comment on above: Performed By: #### C MP #### [facility] [address] [place] [address] Sodium [Moles/Vol] 142 mmol/L Normal 135-144 [facility] Comment on above: Performed By: #### C MP #### [facility] [address] [place] [address] Urea nitrogen [Mass/Vol] 12 mg/dL Normal 6-20 [facility] Comment on above: Performed By: #### C MP #### [facility] [address] [place] [address] Lipid Panelon 08-16-2022 Cholesterol [Mass/Vol] 221 mg/dL Critically high 0-199 [facility] Comment on above: Result Comment: ATP III Cholesterol Classification is Borderline High. Performed By: #### L IPID #### [facility] [address] [place] [address] Cholesterol in HDL [Mass/Vol] 51 mg/dL Normal 40-59 [facility] Comment on above: Result Comment: ATP III [...] CHD Performed By: #### L IPID #### [facility] [address] [place] [address] Cholesterol in LDL [Mass/Vol] 149 mg/dL Critically high 0-129 [facility] Comment on above: Result Comment: ATT III Classification is Borderline High. Performed By: #### L IPID #### [facility] [address] [place] [address] Triglyceride [Mass/Vol] 105 mg/dL Normal 0-150 [facility] Comment on above: Result Comment: ATP III Triglycerides Classification is Normal. Performed By: #### L IPID #### [facility] [address] [place] [address] Shane 10-18-2021 CNPN Telephone (OPHTNR) JASON WHITE ([id number]) 1990 F Date Time Provider Department 10/18/21 JENNIE GAMEZ OPHTNR During your visit today, we recorded the following information about you: Jennie Gamez, OD 10/18/2021 1:28 PM Signed Spoke to patient. Finalize [facility]. Received records from [facility]. 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 Allergies As of Date: 10/18/2021 (No Known Allergies) Date Reviewed: 10/12/2021 Reviewed by: Jennie Gamez OD - Fully Assessed Reason for Visit: Contact Lens Question [3540] Prescriptions as of 10/18/2021 - triamcinolone acetonide [...] Status:Closed by JENNIE GAMEZ on 10/18/21 Normal [facility] SARS-CoV-2 (COVID-19) RT-PCR on 07-05-2021 SARS-CoV-2 (COVID-19) RNA OLGA+probe Ql (Unsp spec) Positive Abnormal [facility] Comment on above: Order Comment: Elodiamegan garibay Result Comment: POSI TIVE: SARS-CoV-2 RNA [...] Authorization (EUA) and has been verified by [facility]. This test is only authorized for the [...] at the following links: For Healthcare Providers: www.[employer].gov/Nextivity/896972/download For Patients: www.[employer].gov/Nextivity/218888/download - Reference Value: Negative Performed By: #### C OVID #### [address] [address] Progress Noteon 01-24-2021 [employer] Authentication Interface Message Text GYNECOLOGY OFFICE VISIT [...] No history of dysuria, frequency or incontinence [employer]: Negative for abnormal vaginal bleeding, abnormal vaginal [...] care coordination: -- minutes. Normal [facility] Quantiferon TB Goldon 2020 Quantiferon TB Gold Indeterminate Normal Negative [facility] Comment on above: Result Comment: An I [...] address questions to Dr. Alexander Jaimes or [email or web address] Testing Performed: [email or web address] [address] [place] [address] Performed By: #### Q UTBG #### [facility] [place] [address] [place] [address] SPINE, LUMBOSACRAL; MIN 4 EWSon 10-08-2017 SPINE, [...] exam.Electronically signed by: KIN DELGADO MD Normal [facility] Vital Signs Date Time Vital Sign Value Performing Clinician Myron pirnce 05-12-2025 10:11040 Body weight 99.79 kg Pee Eliane DO Work Phone: [facility] 05-12-2025 10:11-0400 Diastolic blood pressure 82 mm[Hg] Pee Eliane DO Work Phone: [facility] 05-12-2025 10:11-0400 Systolic blood pressure 138 mm[Hg] Pee Eliane DO Work Phone: [facility] 03-27-2025 10:39-0400 Body weight 99.97 kg Eliane Ob [facility] 03-27-2025 10:39-0400 Diastolic blood pressure 82 mm[Hg] Eliane Ob [facility] 03-27-2025 10:39-0400 Systolic blood pressure 130 mm[Hg] Eliane Ob [facility] 11-04-2024 08:39-0500 Body weight 98.88 kg Pee Eliane DO Work Phone: [facility] 11-04-2024 08:39-0500 Diastolic blood pressure 78 mm[Hg] Pee Eliane DO Work Phone: [facility] 11-04-2024 08:39-0500 Systolic blood pressure 122 mm[Hg] Pee Eliane DO Work Phone: [facility] Healthcare Encounters Encounter Date Encounter Type Care Provider Facility Start: 05-20-2025 ambulatory ASHISH SEGOVIA Facili ty:[facility] Start: 05-12-2025 End: 05-12-2025 Bamboo flowsheet Pee Eliane DO Work Phone: [facility] Start: 05-12-2025 End: 05-15-2025 Bamboo flowsheet Pee Eliane DO Work Phone: [facility] Start: 05-12-2025 End: 05-15-2025 Clinisync Result Encounter Pee Eliane DO Work Phone: [facility] External Department Unsolicited Start: 05-12-2025 End: 05-13-2025 External Result Encounter Pee Eliaen DO Work Phone: [facility] External Department Unsolicited Start: 05-12-2025 End: 05-12-2025 Patient encounter procedure Pee Eliane DO Work Phone: [facility] Start: 05-12-2025 End: 05-12-2025 Periodic preventive med est patient 18-39 yrs Pee Eliane DO Work Phone: [facility] Comment on above: Screening, , for anatomic survey ([facility]); Well woman exam with routine gynecological exam; Second trimester ([facility]); 15 weeks gestation of ([facility]); STD exposure; Nausea Start: 05-12-2025 End: 05-12-2025 ambulatory PEE ELIANE Not Available Start: 05-05-2025 End: 05-05-2025 Clinisync Result Encounter Pee Eliane DO Work Phone: [facility] External Department Unsolicited Start: 05-05-2025 End: 05-05-2025 Clinisync Result Encounter Pee Eliane DO Work Phone: [facility] External Department Unsolicited Start: 04-21-2025 End: 04-21-2025 Bamboo flowsheet Pee Eliane DO Work Phone: [facility] Start: 04-21-2025 End: 04-21-2025 Bamboo flowsheet Pee Eliane DO Work Phone: [facility] Start: 04-21-2025 End: 04-21-2025 flow sheet Pee Eliane DO Work Phone: [facility] Comment on above: First trimester preg jannette ([facility]); 13 weeks gestation of ([facility]) Start: 04-21-2025 End: 04-21-2025 ambulatory PEE [...] 01-20-2025 End: 01-20-2025 ambulatory Pee R ELIANE Facility:[facility] Start: 12-22-2024 End: 12-22-2024 ambulatory Pee R ELIANE Facility:[facility] Start: 12-22-2024 End: 12-22-2024 Lab Drop off Pee R ELIANE [facility] Start: 11-24-2024 End: 11-24-2024 Lab Drop off Brianna L Daisha [facility] Start: 11-24-2024 End: 11-24-2024 ambulatory Brianna L Daisha Facility:[facility] Start: 11-11-2024 End: 11-11-2024 ambulatory Pee R ELIANE Facility:[facility] Start: 11-11-2024 End: 11-11-2024 Patient encounter procedure Pee R ELIANE [facility] Start: 11-05-2024 End: 11-05-2024 Lab Drop off Pee R ELIANE [facility] Start: 11-05-2024 End: 11-05-2024 ambulatory JAMES ROMERO Facility:[facility] Jane sanford Start: 11-04-2024 End: 11-04-2024 Bamboo flowsheet Pee Eliane DO Work Phone: [facility] Start: 11-04-2024 End: 11-04-2024 Bamboo flowsheet Pee Eliane DO Work Phone: [facility] Start: 11-04-2024 End: 11-04-2024 Office outpatient visit 15 minutes Pee Eliane DO Work Phone: [facility] Comment on above: Encounter for infert ility; PCOS (polycystic ovarian syndrome); Abnormal uterine bleeding (AUB); Hormone disorder Start: 11-04-2024 End: 11-04-2024 ambulatory PEE ELIANE Not Available Start: 07-25-2024 End: 07-25-2024 ambulatory JAMES ROMERO Facility: [facility] Start: 07-02-2024 End: 07-02-2024 ambulatory JAMES ROMERO Facility: [facility] Start: 07-02-2024 End: 07-02-2024 ambulatory TRAPEZE ARTIST ASHISH Bunny SEGOVIA Facility: [facility] Start: 05-01-2024 End: 05-01-2024 ambulatory TRAPEZE ARTIST ASHISH A LUCA Facility: [facility] Start: 04-22-2024 End: 04-22-2024 ambulatory DIANE CASAREZ Not Available Start: 03-25-2024 End: 03-25-2024 ambulatory Brianna Ashton Facility: [facility] Start: 01-12-2024 End: 01-12-2024 ambulatory JAMES ROMERO Facility[place] Start: 06-08-2022 End: 06-08-2022 ambulatory ANGELIA MCCARTHY Facility:[facility] Start: 06-08-2022 End: 06-08-2022 Patient encounter procedure Angelia Mccarthy MD Work Phone: Ophthalmology Comment on above: Myopic astigmatism o f both eyes (Primary Dx); Refractive error Start: 10-12-2021 End: 10-12-2021 ambulatory JENNIE YARHAM Facility:[facility] Start: 10-11-2021 Orders Only Jennie Yarham OD Work Phone: Ophthalmology Start: 10-08-2017 Ambulatory Giovany Josue Facility:[facility] Procedures Date Procedure Procedure Detail Performing Clinician Start: 05-12-2025 RECURRENT VAGINITIS (HTRX) Pee Eliane DO Work Phone: Start: 05-12-2025 Urnls dip stick/tabl et rgnt non-auto w/o micrscp Pee Eliane DO Work Phone: Start: 05-12-2025 IGP,APTIMA HPV,AGE GDLN Pee Eliane DO Work Phone: Start: 05-05-2025 BOX TEST Pee Fazi o DO Work Phone: Start: 03-27-2025 Urnls dip stick/tabl et rgnt non-auto w/o micrscp Pee Eliane DO Work Phone: Start: 02-27-2025 [facility] PREG QUANT HCG Core y Eliane DO Work Phone: Start: 02-25-2025 [facility] PREG QUANT HCG Core y Eliane DO Work Phone: Start: 02-14-2025 ALL PROGESTERONE Epe Eliane DO Work Phone: Start: 04-22-2024 Microscopic observat ion [Identifier] in Cervix by Cyto stain Pee Eliane DO Work Phone: Start: 04-22-2024 Cytp cerv/vag auto t hin layer prep mnl screen Diane NEW Work Phone: Cyst (disorder) Pee ESPINOZAO Insertion of intraut erine contraceptive device Pee ESPINOZAO Plan of Treatment Date Care Activity Detail Author Start: 04-22-2029 Screening for malign ant neoplasm of cervix [facility] Start: 06-09-2025 End: 06-09-2025 Patient encounter procedure 06/09/2025 9:00 AM EDT Routine [facility] [address] [place] [address] Pee Del Rio DO [address] [place] [address] [facility]RIFFITHS Start: 05-18-2025 Influenza vaccination [facility] Start: 05-12-2025 End: 07-12-2025 Alpha fetoprotein, maternal Alpha fetoprotein, maternal Lab Routine 15 weeks gestation of ([facility]) Expected: 05/12/2025 (Approximate), Expires: 07/12/2025 [facility] Comment on above: Expected: 05/12/2025 (Approximate), Expires: 07/12/2025 Start: 05-12-2025 End: 08-12-2025 US for US OB 14+ weeks anatomy scan Imaging Routine Screening, , for anatomic survey ([facility]) Expected: 05/12/2025, Expires: 08/12/2025 [facility] Comment on above: Expected: 05/12/2025 , Expires: 08/12/2025 Start: 05-12-2025 End: 05-12-2025 Patient encounter procedure ERVIN GRIFFITHS Comment on above: Arrived Start: 04-28-2025 End: 04-28-2025 Patient encounter procedure [facility] Start: 04-21-2025 End: 04-21-2025 Patient encounter procedure [facility] Comment on above: Arrived Start: 04-07-2025 End: 04-07-2025 Professional / ancillary services management 04/07/2025 9:30 AM EDT Ancillary Procedure [facility] [address] [place] [address] [facility] Start: 03-27-2025 End: 03-27-2026 ABO/Rh ABO/Rh Lab Routine Missed menses , unspecified gestational age ([facility]) Expected: 03/27/2025 (Approximate), Expires: 03/27/2026 [facility] Comment on above: Expected: 03/27/2025 (Approximate), Expires: 03/27/2026 Start: 03-27-2025 End: 03-27-2026 Blood type and Indirect antibody screen panel - Blood Type and screen Lab Routine Missed menses , unspecified gestational age ([facility]) Expected: 03/27/2025 (Approximate), Expires: 03/27/2026 [facility] Work Phone: Comment on above: Expected: 03/27/2025 (Approximate), Expires: 03/27/2026 Start: 03-27-2025 End: 03-27-2026 Drugs of abuse panel - Urine by Screen method Rapid drug screen, urine Lab Routine , unspecified gestational age ([facility]) Encounter for supervision of normal first in first trimester ([facility]) Expected: 03/27/2025 (Approximate), Expires: 03/27/2026 [facility] Comment on above: Expected: 03/27/2025 (Approximate), Expires: 03/27/2026 Start: 03-27-2025 End: 06-27-2025 US Pelvis transvaginal US OB transvaginal Imaging Routine , unspecified gestational age ([facility]) Encounter for supervision of normal first in first trimester ([facility]) Expected: 03/27/2025, Expires: 06/27/2025 [facility] Comment on above: Expected: 03/27/2025 , Expires: 06/27/2025 Start: 03-10-2025 End: 03-10-2025 Patient encounter procedure 03/10/2025 8:40 AM EDT Office Visit [facility] [address] [place] [id number] Pee Del Rio, [address] [place] [address] [facility] Start: 11-04-2024 End: 11-04-2025 Antimullerian hormone (AMH) Antimullerian hormone (AMH) Lab Routine PCOS (polycystic ovarian syndrome) Abnormal uterine bleeding (AUB) Expected: 11/04/2024 (Approximate), Expires: 11/04/2025 [facility] Comment on above: Expected: 11/04/2024 (Approximate), Expires: 11/04/2025 Start: 11-04-2024 End: 11-04-2025 DHEA DHEA Lab Routine PCOS (polycystic ovarian syndrome) Expected: 11/04/2024 (Approximate), Expires: 11/04/2025 [facility] Comment on above: Expected: 11/04/2024 (Approximate), Expires: 11/04/2025 Start: 11-04-2024 End: 11-04-2025 US Pelvis US Pelvis w/ TV Imaging Routine PCOS (polycystic ovarian syndrome) Expected: 11/04/2024, Expires: 11/04/2025 [facility] Comment on above: Expected: 11/04/2024 , Expires: 11/04/2025 Start: 11-04-2024 End: 11-04-2024 Patient encounter procedure 11/04/2024 8:40 AM EST Office Visit [facility] OB [address] [place] [address] Pee Del Rio DO [address] [place] [address] Arrived [facility] Comment on above: Arrived Start: 05-18-2024 Influenza vaccination Influenza Vacc ine (#1) [facility] Start: 05-18-2022 Influenza vaccination INFLUENZA (#1) [facility] Start: 05-18-2021 Influenza vaccination INFLUENZA (#1) [facility] Start: 01-10-2018 HPV TESTING HPV TESTING [facility] Start: 01-10-2009 PAP TESTING PAP TESTING [facility] Start: 01-10-2007 Urine microalbumin profile DTAP,TDAP,TD (1 - Tdap) [facility] Start: 01-10-2006 HIV SCREENING HIV SCREENING [facility] Start: 2000 Adult depression screening assessment DEPRESSION SCREENING [facility] Start: 01-10-1993 COVID-19 VACCINE (1) COVID-19 VACCIN E (1) [facility] Start: 1988 HEPATITIS B (1 of 3 - 3-dose series) HEPATITIS B (1 of 3 - 3-dose series) [facility] Bacteria identified in Urine by Culture Urine culture Microbiology Routine Missed menses Ordered: 03/27/2025 [facility] Comment on above: Ordered: 03/27/2025 CBC W Auto Different ial panel - Blood CBC and differential Lab Routine PCOS (polycystic ovarian syndrome) Ordered: 11/04/2024 [facility] Comment on above: Ordered: 11/04/2024 CBC W Auto Different ial panel - Blood CBC and differential Lab Routine Missed menses , unspecified gestational age ([facility]) Ordered: 03/27/2025 [facility] Comment on above: Ordered: 03/27/2025 CHLAMYDIA TRACHOMATI S (GENITO/STI) CHLAMYDIA TRACHOMATIS (GENITO/STI) Lab Routine STD exposure Ordered: 05/12/2025 [facility] Comment on above: Ordered: 05/12/2025 Cytology Cervical or vaginal smear or scraping study Pap Smear Pathology and Cytology Routine Well woman exam with routine gynecological exam Ordered: 05/12/2025 [facility] Comment on above: Ordered: 05/12/2025 DHEA-sulfate DHEA-sulfate Lab Routine PCOS (polycystic ovarian syndrome) Ordered: 11/04/2024 [facility] Comment on above: Ordered: 11/04/2024 Follicle stimulating hormone Follicle stimulating hormone Lab Routine PCOS (polycystic ovarian syndrome) Ordered: 11/04/2024 [facility] Comment on above: Ordered: 11/04/2024 hCG, quantitative, hCG, quantitative, Lab Routine PCOS (polycystic ovarian syndrome) Ordered: 11/04/2024 [facility] Work Phone: Comment on above: Ordered: 11/04/2024 Hemoglobin A1c/Hemoglobin.total in Blood Hemoglobin A1c Lab Routine Abnormal uterine bleeding (AUB) Ordered: 11/04/2024 [facility] Comment on above: Ordered: 11/04/2024 Hemoglobin A1c/Hemoglobin.total in Blood Hemoglobin A1c Lab Routine Missed menses , unspecified gestational age ([facility]) Ordered: 03/27/2025 [facility] Comment on above: Ordered: 03/27/2025 Hepatitis B virus surface Ag [Presence] in Serum or Plasma by Immunoassay Hepatitis B surface antigen Lab Routine Missed menses , unspecified gestational age ([facility]) Ordered: 03/27/2025 [facility] Comment on above: Ordered: 03/27/2025 Hepatitis C virus Ab [Presence] in Serum or Plasma by Immunoassay Hepatitis C antibody Lab Routine Missed menses , unspecified gestational age ([facility]) Ordered: 03/27/2025 [facility] Comment on above: Ordered: 03/27/2025 HIV-1/HIV-2 antigen/antibody combination immunoassay HIV-1 and HIV-2 antibodies Lab Routine Missed menses , unspecified gestational age ([facility]) Ordered: 03/27/2025 [facility] Comment on above: Ordered: 03/27/2025 Human papilloma viru s DNA [Presence] in Unspecified specimen by Probe with amplification HPV DNA probe, amplified Microbiology Routine Well woman exam with routine gynecological exam Ordered: 05/12/2025 [facility] Comment on above: Ordered: 05/12/2025 Luteinizing hormone Luteinizing hormone Lab Routine PCOS (polycystic ovarian syndrome) Ordered: 11/04/2024 [facility] Comment on above: Ordered: 11/04/2024 Neisseria gonorrhoea e DNA [Presence] in Unspecified specimen by OLGA with probe detection Neisseria gonorrhea DNA probe, direct Lab Routine STD exposure Ordered: 05/12/2025 [facility] Comment on above: Ordered: 05/12/2025 Progesterone Progesterone Lab Routine PCOS (polycystic ovarian syndrome) Hormone disorder Ordered: 11/04/2024 [facility] Comment on above: Ordered: 11/04/2024 Reagin Ab [Presence] in Serum by RPR RPR Lab Routine Missed menses , unspecified gestational age ([facility]) Ordered: 03/27/2025 [facility] Comment on above: Ordered: 03/27/2025 Rubella antibody, IgG Rubella an tibody, IgG Lab Routine Missed menses , unspecified gestational age ([facility]) Ordered: 03/27/2025 [facility] Comment on above: Ordered: 03/27/2025 SURESWAB(R) ADVANCED VAGINITIS PLUS, TMA SURESWAB(R) ADVANCED VAGINITIS PLUS, TMA Pathology and Cytology Routine STD exposure Ordered: 05/12/2025 [facility] Work Phone: Comment on above: Ordered: 05/12/2025 Thyrotropin [Units/volume] in Serum or Plasma TSH Lab Routine PCOS (polycystic ovarian syndrome) Ordered: 11/04/2024 [facility] Comment on above: Ordered: 11/04/2024 Thyroxine (T4) free [Mass/volume] in Serum or Plasma T4, free Lab Routine PCOS (polycystic ovarian syndrome) Ordered: 11/04/2024 [facility] Comment on above: Ordered: 11/04/2024 [facility] Immunizations Immunization Date Immunization Notes Care Provider Vikas vaughn 06-18-2023 influenza, unspecifi ed formulation Epe ELIANE [facility] 06-18-2023 influenza virus vaccine, unspecified formulation Pee Eliane DO Work Phone: [facility] Comment on above: Result Comment: 2023: VIS DATE: 04/22/2021 09-15-2022 SARS-CoV-2 (COVID-19 ) [id number] Pee ELIANE [facility] 07-10-2022 influenza virus vaccine, unspecified formulation Pee ELIANE [facility] Comment on above: Result Comment: 2023: NULL 02-06-2022 tetanus toxoid, redu west diphtheria toxoid, and acellular pertussis vaccine, adsorbed Pee ELIANE [facility] Comment on above: Result Comment: 2023: VIS DATE: 04/22/2021 09-08-2021 influenza virus vaccine, unspecified formulation Pee ELIANE [facility] 09-08-2021 SARS-CoV-2 (COVID-19 ) mRNA-1273 vaccine Pee ELIANE [facility] 06-29-2021 influenza virus vaccine, unspecified formulation Pee ELIANE [facility] Comment on above: Result Comment: 2023: NULL 11-30-2020 SARS-CoV-2 (COVID-19 ) mRNA BNT-162b2 vax Pee ELIANE [facility] Comment on above: Result Comment: 2023: TPV23 11-09-2020 SARS-CoV-2 (COVID-19 ) mRNA BNT-162b2 vax Pee ELIANE [facility] Comment on above: Result Comment: 2023: TPV23 10-12-2020 SARS-CoV-2 (COVID-19 ) mRNA-1273 vaccine Pee ELIANE [facility] 09-14-2020 SARS-CoV-2 (COVID-19 ) mRNA-1273 vaccine Pee ELIANE [facility] 06-29-2020 influenza virus vaccine, unspecified formulation Pee ELIANE [facility] 09-19-2019 influenza virus vaccine, unspecified formulation Pee ELIANE [facility] 06-25-2018 influenza virus vaccine, unspecified formulation Pee ELIANE [facility] 06-03-2015 influenza virus vaccine, unspecified formulation Pee ELIANE [facility] 06-28-2013 influenza virus vaccine, unspecified formulation Pee ELIANE [facility] 05-11-2011 tetanus toxoid, redu west diphtheria toxoid, and acellular pertussis vaccine, adsorbed Pee ELIANE [facility] 01-30-2000 measles, mumps and rubella virus vaccine Pee ELIANE [facility] 02-15-1999 hepatitis B vaccine, pediatric or pediatric/adolescent dosage Pee ELIANE [facility] Payers Date Payer Category Payer Private Health Insurance [employer] [id number] 2021 Unknown MMO MMO [employer] [id number] 2021-Present [phone] [address] [place] [address] PPO [id number] 2021 Unknown [id number]. [id number] 2021 Unknown [id number] 1988 Unknown [id number] 2.16.840.1.241837.3.579.2. 9 1988 Unknown [id number] 2.16.840.1.573238.3.579.2 1988 Unknown [id number] 2.16.840.1.100116.3.579.2 1988 Unknown [id number] 2.16.840.1.422581.3.579.2 1988 Unknown [id number] 2.16.840.1.013962.3.579.2 1988 Unknown [id number] 2.16.840.1.177550.3.579.2 1988 Unknown [id number] 2.16.840.1.446414.3.579.2 1988 Unknown [id number] 2.16.840.1.347814.3.579.2. 727 1988 Unknown [id number] 2.16.840.1.323064.3.579.2. 727 1988 Unknown [id number] 2.16.840.1.281893.3.579.2. 727 1988 Unknown [id number] 2.16.840.1.541409.3.579.2. 72 1988 Unknown [id number] 2.16.840.1.843189.3.579.2. 727 1988 Unknown [id number] 2.16.840.1.970661.3.579.2. 1258 1988 Unknown [id number] 2.16.840.1.761999.3.579.2. 9 1988 Unknown [id number] 2.16.840.1.957603.3.579.2. 1258 1988 Unknown [id number] 2.16.840.1.110644.3.579.2. 9 1988 Unknown [id number] 2.16.840.1.598314.3.579.2. 1258 1988 Unknown [id number] 2.16.840.1.109078.3.579.2. 9 1988 Unknown [id number] 2.16840.1.584865.3.579.2. 1988 Unknown [id number] 2.16.840.1.789058.3.579.2. 70 Unknown [id number] Social History Date Type Detail Facility Start: 09-02-2012 End: 07-25-2024 Tobacco smoking status WYIS Never smoked tobacco [facility] Start: 09-02-2012 End: 06-08-2022 Alcohol intake Current non-drinker of alcohol (finding) [facility] Start: 1990 Sex Assigned At Female [facility] Exposure to SARS-CoV -2 (event) Yes [facility] Start: 10-12-2021 Tobacco use and exposure Smokeless tobacco non-user [facility] Tobacco smoking stat NHIS Tobacco smoking consumption unknown [facility] Start: 01-29-2024 Gender identity Identifies as female gender (finding) [facility] Start: 01-29-2024 Sexual orientation Heterosexual (finding) [facility] Tobacco smoking status Never [facility] Sex Assigned At Female [facility] Sexual Orientation [facility] Start: 02-07-2019 Sex Female (finding) [facility] Start: 02-08-2025 [facility] Clinical Notes 10-12-2021 to 05-12-2025 Arline Marcos, [facility] 05/12/2025 9:50 AM Dimitrios Ryder, [facility] - 04/21/2025 9:30 AM Fadi Marcos, [facility] - 04/21/2025 9:30 AM Rosa Dillard, [facility] - 03/27/2025 10:00 AM EDTRadiology Note Date & Type Note Facility 05-12-2025 History of Present illness Narrative Reason for Appointment: Patient ID: Jaosn Coronel is a 35 y.o. female who [...] (polycystic ovarian syndrome) 02/24/2025 Positive urine test ([facility]) 02/24/2025 Resolved Ambulatory Problems Diagnosis Date [...] nursing note reviewed. Exam conducted with a housekeeping supervisor present. Vitals: There is no height or weight on file to calculate BMI. BP: 138/82 Patient's last menstrual period was 01/25/2025. ASSESSMENT & PLAN ICD-10-CM 1. Screening, , for anatomic survey ([facility]) Z36.89 US OB 14+ weeks anatomy scan US OB 14+ weeks anatomy scan 2. Well woman exam with routine gynecological exam Z01.419 Pap Smear HPV DNA probe, amplified 3. Second trimester ([facility]) Z34.92 POCT urinalysis dipstick manually resulted 4. 15 weeks gestation of ([facility]) Z3A.15 Alpha fetoprotein, maternal Alpha fetoprotein, [...] and zofran. Pt to be referred to [facility] for vanishing twin and AMA Orders [...] Del Rio DO documented in this encounter [facility] 04-21-2025 History of Present [...] (polycystic ovarian syndrome) 02/24/2025 Positive urine test ([facility]) 02/24/2025 Resolved Ambulatory Problems Diagnosis Date [...] nursing note reviewed. Exam conducted with a housekeeping supervisor present. Vitals: There is no height or weight on file to calculate BMI. BP: Patient's last menstrual period was 01/25/2025. ASSESSMENT & PLAN ICD-10-CM 1. First trimester ([facility]) Z34.91 2. 13 weeks gestation of ([facility]) Z3A.13 New OB: Patient presents today [...] or undercooked meat, and stay away from formerly [facility]. Patient has been consulted regarding any further do's and don'ts of . Patient voiced understanding and all questions and concerns were answered. No orders of the defined types were placed in this encounter. Follow Up: Patient is to return in 4 weeks for routine OB appointment. Documented by Arline Marcos LPN on behalf of: Pee Del Rio DO documented in this encounter [facility] 03-27-2025 History of Present [...] (polycystic ovarian syndrome) 02/24/2025 Positive urine test ([facility]) 02/24/2025 Resolved Ambulatory Problems Diagnosis Date Noted [...] dipstick manually resulted , unspecified gestational age ([facility]) - Type and screen; Future - ABO/Rh; Future - CBC and differential - Hemoglobin A1c - RPR - Rubella antibody, IgG - Hepatitis B surface antigen - Hepatitis C antibody - HIV-1 and HIV-2 antibodies - Rapid drug screen, urine; Future - US OB transvaginal; Future Encounter for supervision of normal first in first trimester ([facility]) - Rapid drug screen, urine; Future - US OB transvaginal; Future Nausea - ondansetron (Zofran) [...] or undercooked meat, and stay away from formerly [facility]. Patient has also been advised to [...] aware she will need to wait for [place] labs to be given until verified. Script [...] Kyra Dillard LPN documented in this encounter [facility] 12-22-2024 Evaluation + Plan note Diagnostic Tests PendingDHEA 12/22/24 [facility] 11-24-2024 Note Nurse Consultation N ote [...] Recorded 2024-05-01: VIS DATE: 04/22/2021 SARS-CoV-2 (COVID-19) [id number].[id number] 09/15/2022 Recorded influenza virus vaccine, inactivated 07/10/2022 [...] Recorded hepatitis B pediatric vaccine 02/15/1999 Recorded [facility] 11-24-2024 Evaluation + Plan note Diagnostic Tests PendingProgesterone Level 11/24/24 [facility] 11-04-2024 History of Present illness Narrative [...] nursing note reviewed. Exam conducted with a housekeeping supervisor present. Vitals: There is no height [...] Del Rio DO documented in this encounter [facility] 07-25-2024 Note Patient Education Genetic Medicine Diet for Metabolic Syndrome Metabolic syndrome is a disorder that includes three or more of the following conditions: ??? Abdominal obesity, as seen in a large waist measurement. ??? Too much sugar (glucose) in your blood. ??? High blood pressure (hypertension). ??? Rfknzm-ivdk-xzfdgb amount of fat (lipids) in your blood. ??? Tbwov-fhrp-pveaot level of good cholesterol (HDL). Keeping an [...] Berries. Apples. Oranges. Peaches. Apricots. Plums. Grapes. [place]. Papaya. Pomegranate. Kiwi. Cherries. Vegetables Lettuce. Spinach. Leafy greens, including kale, chard, zoe greens, and mustard greens. Peas. Beets. Cauliflower. Cabbage. Broccoli. Carrots. Green beans. Tomatoes. Squash. Eggplant. Peppers. Onions. Cucumbers. Fedscreek sprouts. Sweet potatoes. Yams. Beans. Lentils. Grains [...] fats, nuts, a (more content not included)... [facility] 06-08-2022 Note HNO ID: [id number] Author: Angelia Mccarthy MD Service: ? Author [...] Mccarthy MD June 08, 2022 8:13 AM [facility] 06-08-2022 History of Present illness [...] 2022 8:13 AM documented in this encounter [facility] 10-12-2021 Note HNO ID: [id number] Author: Jennie Gamez OD Service: ? Author Type: TORTILLA MAKER Type: Progress Notes Filed: 10/18/2021 1:30 PM [...] of its relevant components. Jennie Gamez OD [facility] Evaluation + Plan note Future Appointments Appointment Date:11/11/2024 12:00:00 PM Scheduled Provider: Location:.[facility] Appointment Type:US Abdominal/Pelvis (FT) Diagnostic Tests PendingLuteinizing Hormone 11/05/24FSH Level 11/05/24DHEA 11/05/24DHEAS 11/05/24Anti-Mullerian Hormone (AMH) 11/05/24 Future Scheduled TestsUS Pelvis Non-OB Complete 11/11/24US Transvaginal Non-OB 11/11/24 [facility] Evaluation note Diagnosis Myopic astigmatism of both eyes- Primary Refractive error Unspecified disorder of refraction and accommodation [facility] Encounter for infertility PCOS (polycystic ovarian syndrome) Polycystic ovaries Abnormal uterine bleeding (AUB) Hormone disorder Unspecified endocrine disorder documented in this encounter [facility] note* Diagnosis Missed menses , unspecified gestational age ([facility]) Encounter for supervision of normal first in first trimester ([facility]) Nausea Nausea alone documented in this encounter [facility] [facility] HealthcareEvaluation note* Diagnosis First trimester ([facility]) state, incidental 13 weeks gestation of ([facility]) documented in this encounter [facility] HealthcareEvaluation note* Diagnosis Screening, , for anatomic survey ([facility]) Encounter for anatomic survey Well woman exam with routine gynecological exam Routine gynecological examination Second trimester ([facility]) state, incidental 15 weeks gestation of ([facility]) STD exposure Nausea Nausea alone documented [facility] this [facility] Narrative No data available for this section [facility] Hospital Discharge instructions No data available for this section [facility] Progress note No data available for this section [facility] Summary Purpose Family History No Family [...] section and content) DATE CREATED AUTHOR 03/11/2018 [facility] ical [facility] DATE CREATED AUTHOR AUTHOR'S ORGANIZ ATION 09/03/2021 [facility] DATE CREATED AUTHOR AUTHOR'S ORGANIZ ATION 06/18/2022 [facility] DATE CREATED AUTHOR AUTHOR'S ORGANIZ ATION 08/17/2022 [facility] DATE CREATED AUTHOR AUTHOR'S ORGANIZ ATION 04/24/2024 [facility] d[facility] Specialists [facility] DATE CREATED AUTHOR AUTHOR'S ORGANIZ ATION 11/06/2024 [facility] DATE CREATED AUTHOR AUTHOR'S ORGANIZ ATION 11/07/2024 [facility] DATE CREATED AUTHOR AUTHOR'S ORGANIZ ATION 11/09/2024 [facility] DATE CREATED AUTHOR AUTHOR'S ORGANIZ ATION 11/12/2024 [facility] DATE CREATED AUTHOR AUTHOR'S ORGANIZ ATION 12/06/2024 [facility] DATE CREATED AUTHOR AUTHOR'S ORGANIZ ATION 12/24/2024 [facility] DATE CREATED AUTHOR AUTHOR'S ORGANIZ ATION 05/13/2025 [facility] dical [facility] DATE CREATED AUTHOR AUTHOR'S ORGANIZ ATION 05/16/2025 [facility] Source Comments (unrecognize d section and content) In the event this informatio n is protected by the Federal Confidentiality of Alcohol and Drug Abuse Patient Records regulations: The Federal rules restrict any use of the information to criminally investigate or prosecute any alcohol or drug abuse patient.[facility] Center[facility] the event this information is protected by the Federal Confidentiality of Alcohol and Drug Abuse Patient Records regulations: The Federal rules restrict any use of the information to criminally investigate or prosecute any alcohol or drug abuse patient.[facility] Care Teams (unrecognized sec tion and content) Banking Supervisor Relationship Specialty Start Date End Date Li Guillen [id number] [place] [address] PCP - General 09/02/12 Banking Supervisor Relationship Specialty Start Date End Date Li Guillen [id number] [facility] [address] [place] [address] PCP - General 09/02/12 Reason for Visit [...] BE BASED ON THE PRIMARY CLINICAL RECORDS. [x+1]. provides no warranty or guarantee of the accuracy or completeness of information in this document.
== END 2025-05-19 14:16 | disposition home or self-care (01) ==
LOC: LAB 14:15
PROVIDERS: Visit Provider Obstetrics & Gynecology
DX: Z34.92 Encounter for supervision of normal pregnancy, unspecified, second trimester (principal); Z3A.15 15 weeks gestation of pregnancy
CPT/HCPCS: 36415; 82105

== ENCOUNTER 2025-07-21 06:36 | Outpatient (OUT) | payer OTHER, SELFPAY ==
--- OUTSIDE RECORDS SUMMARY | 2025-07-07 07:30 | XMS_ITS | Encounter Summary ---
Author Organization [facility] Address [address] [place] [address] Care Team Providers Care Division Toll Wire Chief Name Role Phone Unavailable Primary Care Provider Unavailabl e Encounter Details DateTypeDepartmentCare Team (Latest Contact Info)Intnjgvjfeq79/21/2025 8:30 AM EDTRoutine [facility] [address] [place] [phone] Pee Del Rio, [address] [place] [address] 23 weeks gestation of ([facility]); Second trimester ([facility]); Diabetes mellitus screening; 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[facility]); Advanced maternal age, primigravida, antepartum ([facility]) Social History Tobacco UseTypesPacks/DayYears UsedDateSmoking Tobacco: Never Assessed Estimated Date of SkndyuxvRiyznodtJsa18/15/2026Based on last menstrual period of 01/25/2025Sex and Gender InformationValueDate RecordedSex Assigned at BirthFemale 01/29/2024 3:29 PM EDTLegal FerPmljav41/12/2024 3:49 PM EDTGender IdentityFemale 01/29/2024 3:29 PM EDTSexual YajkxyqrjabQwphxyzg01/14/2024 3:29 PM EDTdocumented as of this encounter Last Filed Vital Signs Vital SignReadingTime TakenCommentsBlood Zegugpwa683/8010/ 8:35 AM EDT Pulse--Temperature--Respiratory Rate--Oxygen Saturation--Inhaled Oxygen Concentration--Aptdce413 kg (220 lb 12.8 oz)07/07/2025 8:35 AM EDTHeight--Body Mass Index--documented in this encounter Progress Notes * Arline Marcos, TRAVOGRAPH OPERATOR - 07/07/2025 8:30 AM EDT Reason for Appointment: Patient ID: Elbret Pena is a 35 y.o. female who presents for No chief complaint on file. Patient presents today for Return OB appointment. MEDICATIONS Current Outpatient Medications Medication Instructions Doxylamine Succinate, Sleep, (UNISOM PO) FIBER GUMMIES PO meclizine (ANTIVERT) 25 mg, Oral, 2 times daily PRN ondansetron (ZOFRAN) 8 mg, Oral, As needed Vit-Fe Fumarate-FA ( VITAMIN AND MINERAL PO) promethazine (PHENERGAN) 12.5 mg, Oral, Every 4 hours pyridoxine (Vitamin B-6) 25 MG tablet ALLERGIES No Known Allergies PROBLEMS Active Ambulatory Problems Diagnosis Date Noted PCOS (polycystic ovarian syndrome) 02/24/2025 Positive urine test ([facility]) 02/24/2025 Resolved Ambulatory Problems Diagnosis [...] HISTORY Past Surgical History: Procedure Laterality Date PAULETTEIK REVIEW OF SYSTEMS Review of Systems: Review [...] nursing note reviewed. Exam conducted with a cardroom attendant present. Vitals: There is no height or weight on file to calculate BMI. BP: 120/80 Patient's last menstrual period was 01/25/2025. Assessment/Plan ICD-10-CM 1. 23 weeks gestation of ([facility]) Z3A.23 POCT urinalysis dipstick manually resulted 2. Second trimester ([facility]) Z34.92 POCT urinalysis dipstick manually resulted 3. Diabetes mellitus screening Z13.1 CBC Glucose tolerance, 1 hour CBC Glucose tolerance, 1 hour 4. 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 Advanced maternal age, primigravida, antepartum ([facility]) O09.519 US OB follow up transabdominalapproach Patient presents today for a routine obstetrics appointment. Patient is currently 23w2d with a Estimated Date of Delivery: 11/01/25. Pt still not feeling well, decline pump at this time. Pt to start meclizine. labor precautions given. Pt to return in 4 weeks for scheduled OB appt. Documented by Arline Marcos LPN on behalf of: Pee Del Rio DO documented in this encounter Plan of Treatment DateTypeDepartmentCare Team (Latest Contact Info)Ouxmvvaawgm20/18/2025 8:00 AM ESTAncillary Procedure [facility] [address] [place] [address] 08/04/2025 8:30 AM ESTRoutine [facility] [address] [place] [address] Pee Del Rio, [address] [place] [id number] NameTypePriorityAssociated DiagnosesOrder ScheduleCBCLabRoutine Diabetes mellitus screening Expected: 07/07/2025 (Approximate), Expires: 07/07/2026Glucose tolerance, 1 hour LabRoutine Diabetes mellitus screening Expected: 07/07/2025 (Approximate), Expires: 07/07/2026US OB follow up transabdominal approachImagingRoutine 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[facility]) Advanced maternal age, primigravida, antepartum ([facility]) every 4 weeks for 6 Occurrences starting 07/07/2025 until 01/05/2026documented as of this encounter Procedures Procedure NamePriorityDate/TimeAssociated DiagnosisCommentsPOCT URINALYSIS ZAPBTDGIGwnvteu30/21/2025 8:49 AM EDT 23 weeks gestation of ([facility]) Second trimester ([facility]) documented in this encounter Results * (ABNORMAL) POCT urinalysis dipstick manually resulted (07/07/2025 8:49 AM EDT) ComponentValueRef RangeTest MethodAnalysis TimePerformed AtPathologist SignatureColor, UAYellowClarity, UAClearGlucose, UANegativeNegative - 2000(110) ++++ mg/dLBilirubin, UANegativeNegative - 4(70) +++ mg/dLKetones, UA NegativeNegative - 160(16) ++++ mg/dLSpec Grav, UA1.0301 - 1.03Blood, UA PositiveNegative - 50 Jerry/mcLpH, UA5.55 - 9Protein, UAPositiveNegative - 2000(20) ++++ mg/dLUrobilinogen, UA1.00.2 - 12 mg/dLLeukocytes, UAPositive Negative - 500+++ Roberta/mcLNitrite, UANegativeNegative - PositiveSpecimen (Source)Anatomical Location / LateralityCollection Method / VolumeCollection TimeReceived SblqJfnox81/21/2025 8:49 AM EDT Narrative Authorizing ProviderResult TypeResult StatusCorey Eliane DOPOINT OF CARE TEST ENTER/EDIT ORDERABLESFinal Result documented in this encounter Visit Diagnoses Diagnosis 23 weeks gestation of ([facility]) Second trimester ([facility]) state, incidental Diabetes mellitus screening Screening for diabetes mellitus 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
--- OUTSIDE RECORDS SUMMARY | 2025-07-21 06:39 | XMS_ITS | Clinical Summary ---
Author Organization [facility] Address [address] [place] [address] Phone Care Team Providers Care Complex Director Name Role Phone Unavailable Primary Care Provider Unavailabl e Encounters DateTypeDepartmentCare LbnkFwzpqxpnlgk49/30/2025 7:30 AM EDT - 06/16/2025 11:59 PM EDTHospital Encounter [facility] [address] [place] [phone] Encounter for supervision of normal , unspecified, unspecified trimester ([facility]) Discharge Disposition: Home06/15/20252627Dawqbh32/29/2025Transcribe Orders [facility] [address] [place] [phone] Pee Del Rio DO Encounter for supervision of normal , unspecified, unspecified trimester ([facility]) (Primary Dx)from Last 3 Months Social History Tobacco UseTypesPacks/DayYears UsedDateSmoking Tobacco: Never Assessed CommentsUnknownSex and Gender InformationValueDate RecordedSex Assigned at Not on fileLegal SyuFuugsh88/28/2025 2:41 PM EDTGender IdentityNot on fileSexual OrientationNot on file Plan of Treatment DateTypeDepartmentCare Team (Latest Contact Info)Vurknjzieao43/09/2025 7:45 AM ESTAppointment [facility] [address] [place] [phone] Health MaintenanceDue DateLast DoneCommentsHIV Hsqkipwhn1988Lipid Panel 1988Yearly Adult Wzezmcpi1988Hepatitis B Vaccines (2 of 3 - 3-dose series)Diabetes Hcuztoygv48/26/2006Hepatitis C Screening 01/10/2006Cervical Cancer Tqvgndmvo49/26/2009HPV/Ndmlyo9701/10/2009Pap Smear 01/10/2009HPV Vaccines (1 - 3-dose standard series)01/10/2015Influenza Vaccine (#1)/10/2022, 07/10/2022, 09/08/2021, Additional history exists COVID-19 Vaccine ( season), 09/08/2021, 10/12/2020, Additional history existsDTaP/Tdap/Td Vaccines (3 - Td or Tdap) , 05/11/2011Zoster Vaccines (1 of 2)01/10/2038MMR Vaccines Ivcsftshr38/15/2000HIB VaccinesAged OutNo longer eligible based on patient's age to complete this topicHepatitis A VaccinesAged OutNo longer eligible based on patient's age to complete this topicIPV VaccinesAged OutNo longer eligible based on patient's age to complete this topicMeningococcal VaccineAged OutNo longer eligible based on patient's age to complete this topicPneumococcal Vaccine: Pediatrics and At-Risk Adult PatientsAged OutNo longer eligible based on patient's age to complete this topicRotavirus VaccinesAged OutNo longer eligible based on patient's age to complete this topic Procedures Procedure NamePriorityDate/TimeAssociated DiagnosisCommentsUS OB DETAIL WBVAVHQBmoepgg66/30/2025 8:38 AM EDT Encounter for supervision of normal , unspecified, unspecified trimester ([facility]) from Last 3 Months Results * OB detail anatomy (06/16/2025 8:38 AM EDT)Anatomical RegionLaterality ModalityBodyUltrasoundSpecimen (Source)Anatomical Location / Laterality Collection Method / VolumeCollection TimeReceived Time06/16/2025 7:30 AM EDT 06/16/2025 7:30 AM EDT Narrative 06/16/2025 3:32 PM EDT Interpreted by: Alyssa Gardner Indication ======== Detailed Anatomy for AMA Primigravida, Class I Obesity (BMI 30-34.9) History ====== General History Height 170 cm Height (ft) 5 ft Height (in) 7 in Previous Outcomes 1 Para 0 Maternal Assessment Height 170 cm Height (ft) 5 ft Height (in) 7 in Weight 100 kg Weight (lb) 220 lb Weight gain 0 kg Weight gain (lb) 0 lb BMI 34.46 kg/m? Physical Exam Initial weight (lb) 220 lb ========= Weinberg . Number of fetuses: 1 Dating ====== LMP on: 01/25/2025 Cycle: Very certain LMP, regular cycle GA by LMP 20 w + 2 d MEHUL by LMP: 11/01/2025 Conception: LMP Ultrasound examination on: 06/16/2025 GA by U/S based upon: AC, BPD, Femur, HC GA by U/S 20 w + 2 d MEHUL by U/S: 11/01/2025 Assigned: based on the LMP, selected on 06/16/2025 Assigned GA 20 w + 2 d Assigned MEHUL: 11/01/2025 Impression ========= A targeted anatomic survey was indicated: AMA - biometry is consistent with the stated gestational age -Detailed anatomic evaluation of the brain/ventricles, face, heart/outflow tracts and chest anatomy, abdominal organ specific anatomy, number/length/architecture of limbs and detailed evaluation of the umbilical cord and placenta and other anatomy as clinically indicated was performed. -No malformations were identified on this comprehensive survey within limitations of sonographic evaluation at this gestational age. -The placenta and adnexa appear within normal today. Anterior placenta -Today's anatomic survey was completed A normal anatomic survey does not exclude all possible structural or functional abnormalities. Thank you for allowing us to participate in the care of your patient Follow-up ======== A 30+ week growth scan has been scheduled General Evaluation Cardiac activity present. FHR 149 bpm. movements: visualized. Presentation: cephalic Placenta: Placental site: anterior, No Previa Seen Umbilical cord: Cord vessels: 3 vessel cord. Insertion site: placental insertion: normal Amniotic fluid: Amount of AF: normal amount Biometry Standard BPD 47.1 mm 20w 2d 48% Hadlock OFD 61.5 mm 44% INTERGROWTH-21st HC 173.7 mm 19w 6d 25% Hadlock Cerebellum tr 21.6 mm 20w 5d 70% Ferguson Nuchal fold 3.8 mm AC 148.0 mm 20w 1d 37% Hadlock Femur 34.3 mm 20w 6d 60% Hadlock Humerus 32.6 mm 57% Chitty HC / AC 1.17 56% Hadlock EFW 348 g 20w 2d 48% Hadlock EFW (lb) 0 lb EFW (oz) 12 oz EFW by: Hadlock (OAL-KT-UV-FL) Extended Orderlies Teacher 9.0 mm CM 4.7 mm 38% Nicolaides Nasal bone 5.4 mm Head / Face / Neck Cephalic index 0.77 26% Nicolaides Nasal bone: present Extremities / Bony Struc FL / BPD 0.73 71% Hadlock FL / HC 0.20 89% Hadlock FL / AC 0.23 84% Hadlock Other Structures FHR 149 bpm Anatomy Cranium: Normal Lateral ventricles: Normal Choroid plexus: Normal Midline falx: Normal Cavum septi pellucidi: Normal Cerebellum: Normal Cisterna magna: Normal Head / Neck Head size: Normal Head shape: Normal Rt lateral ventricle: Normal Lt lateral ventricle: Normal Rt choroid plexus: Normal Lt choroid plexus: Normal Thalami: Normal Cerebellar lobes: Normal Vermis: Normal Neck: Normal Neck: No neck masses seen Lips: Normal Profile: Normal Nose: Normal Face Nasal bone: present Maxilla: Normal Mandible: Normal Orbits: Normal 4-chamber view: Normal RVOT view: Normal LVOT view: Normal 3-vessel view: Normal 9-bvcchm-gizcjnm view: Normal Heart / Thorax Situs: situs solitus (normal) Aortic arch view: Normal Bicaval view: Normal Cardiac position: levocardia (normal) Cardiac axis: Normal Cardiac size: normal (approx. 1/3 of thoracic area) Cardiac proportions: proportioned (normal) Cardiac rhythm: regular (normal) Rt lung: Normal Lt lung: Normal Rt diaphragm: Normal Lt diaphragm: Normal Cord insertion: Normal Stomach: Normal Kidneys: Normal Bladder: Normal Genitals: Normal Abdomen Abdom. wall: Normal Stomach: Stomach size and situs appear normal Rt kidney: Normal Lt kidney: Normal Small bowel: Normal Large bowel: Normal Cervical spine: Normal Thoracic spine: Normal Lumbar spine: Normal Sacral spine: Normal Arms: Normal Hands: normal Legs: Normal Feet: normal Rt upper arm: Normal Rt forearm: Normal Rt hand: Normal Rt fingers: Normal Lt upper arm: Normal Lt forearm: Normal Lt hand: Normal Lt fingers: Normal Rt upper leg: Normal Rt lower leg: Normal Rt foot: Normal Rt toes: Normal Lt upper leg: Normal Lt lower leg: Normal Lt foot: Normal Lt toes: Normal Position of hands: Normal Position of feet: Normal sex: male Wants to know sex: yes Genetic Screen Age 35 yrs Echogenic focus: no Ventriculomegaly: no Nuchal fold: normal Echogenic bowel: no Pyelectasis: no Short femur: no Short humerus: no Nasal bone: present Display risk: Risk at time of screening Maternal Structures Uterus / Cervix Uterus: Visualized Uterus details: Normal Cervix: Visualized Cervix details: Long and closed Cervical length 41.8 mm Ovaries / Tubes / Adnexa Rt ovary: Visualized Rt ovary details: Normal Rt ovary D1 33.3 mm Rt ovary D2 27.5 mm Rt ovary D3 24.7 mm Rt ovary Vol 11.8 cm? Lt ovary: Visualized Lt ovary details: Normal Lt ovary D1 26.7 mm Lt ovary D2 14.5 mm Lt ovary D3 28.9 mm Lt ovary Vol 5.9 cm? Procedure Note Alyssa Gardner MD - 06/16/2025 Interpreted by: Alyssa Gardner Indication ======== Detailed Anatomy for AMA Primigravida, Class I Obesity (BZF93-82.9) History ====== General History Fazyzp672 cm Height (ft)5 ft Height (in)7 in Previous Outcomes Gravida1 Para0 Maternal Assessment Aubsmt891 cm Height (ft)5 ft Height (in)7 in Xgbmfa966 kg Weight (lb)220 lb Weight gain0 kg Weight gain (lb)0 lb BMI34.46 kg/m? Physical Exam Initial weight (lb)220 lb ========= Weinberg . Number of fetuses: 1 Dating ====== LMP on:01/25/2025 Cycle:Very certain LMP, regular cycle GA by LMP20 w + 2 d MEHUL by LMP:11/01/2025 Conception:LMP Ultrasound examination on:06/16/2025 GA by U/S based upon:AC, BPD, Femur, HC GA by U/S20 w + 2 d MEHLU by U/S:11/01/2025 Assigned:based on the LMP, selected on 06/16/2025 Assigned GA20 w + 2 d Assigned MEHUL:11/01/2025 Impression ========= A targeted anatomic survey was indicated: AMA - biometry is consistent with the stated gestational age -Detailed anatomic evaluation of the brain/ventricles, face,heart/outflow tracts and chest anatomy, abdominal organ specific anatomy, number/length/architecture of limbs and detailed evaluation of the umbilical cord and placenta and otherfetal anatomy as clinically indicated was performed. -No malformations were identified on this comprehensive survey withinlimitations of sonographic evaluation at this gestational age. -The placenta and adnexa appear within normal today. Anterior placenta -Today's anatomic survey was completed A normal anatomic survey does not exclude all possible structural orfunctional abnormalities. Thank you for allowing us to participate in thecare of your patient Follow-up ======== A 30+ week growth scan has been scheduled General Evaluation Cardiac activity present. FHR 149 bpm. movements: visualized.Presentation: cephalic Placenta: Placental site: anterior, No Previa Seen Umbilical cord: Cord vessels: 3 vessel cord. Insertion site: placentalinsertion: normal Amniotic fluid: Amount of AF: normal amount Biometry Standard BPD47.1 mm20w 2d 48% Hadlock OFD61.5 mm 44% INTERGROWTH-21st HC173.7 mm19w 6d 25% Hadlock Cerebellum tr21.6 mm20w 5d 70% Ferguson Nuchal fold3.8 mm AC148.0 mm20w 1d 37% Hadlock Femur34.3 mm20w 6d 60% Hadlock Onupnvf68.6 mm 57% Chitty HC / AC1.17 56% Hadlock ZGZ371 g20w 2d 48% Hadlock EFW (lb)0 lb EFW (oz)12 oz EFW by:Hadlock (NIJ-UP-HO-FL) Extended Vp9.0 mm CM4.7 mm 38% Nicolaides Nasal bone5.4 mm Head / Face / Neck Cephalic index0.77 26% Nicolaides Nasal bone:present Extremities / Bony Struc FL / BPD0.73 71% Hadlock FL / HC0.20 89% Hadlock FL / AC0.23 84% Hadlock Other Structures LYN769 bpm Anatomy Cranium:Normal Lateral ventricles:Normal Choroid plexus:Normal Midline falx:Normal Cavum septi pellucidi:Normal Cerebellum:Normal Cisterna magna:Normal Head / Neck Head size:Normal Head shape:Normal Rt lateral ventricle:Normal Lt lateral ventricle:Normal Rt choroid plexus:Normal Lt choroid plexus:Normal Thalami:Normal Cerebellar lobes:Normal Vermis:Normal Neck:Normal Neck:No neck masses seen Lips:Normal Profile:Normal Nose:Normal Face Nasal bone:present Maxilla:Normal Mandible:Normal Orbits:Normal 4-chamber view:Normal RVOT view:Normal LVOT view:Normal 3-vessel view:Normal 7-iybqag-kzadssa view:Normal Heart / Thorax Situs:situs solitus (normal) Aortic arch view:Normal Bicaval view:Normal Cardiac position:levocardia (normal) Cardiac axis:Normal Cardiac size:normal (approx. 1/3 of thoracic area) Cardiac proportions:proportioned (normal) Cardiac rhythm:regular (normal) Rt lung:Normal Lt lung:Normal Rt diaphragm:Normal Lt diaphragm:Normal Cord insertion:Normal Stomach:Normal Kidneys:Normal Bladder:Normal Genitals:Normal Abdomen Abdom. wall:Normal Stomach:Stomach size and situs appear normal Rt kidney:Normal Lt kidney:Normal Small bowel:Normal Large bowel:Normal Cervical spine:Normal Thoracic spine:Normal Lumbar spine:Normal Sacral spine:Normal Arms:Normal Hands:normal Legs:Normal Feet:normal Rt upper arm:Normal Rt forearm:Normal Rt hand:Normal Rt fingers:Normal Lt upper arm:Normal Lt forearm:Normal Lt hand:Normal Lt fingers:Normal Rt upper leg:Normal Rt lower leg:Normal Rt foot:Normal Rt toes:Normal Lt upper leg:Normal Lt lower leg:Normal Lt foot:Normal Lt toes:Normal Position of hands:Normal Position of feet:Normal sex:male Wants to know sex:yes Genetic Screen Age35 yrs Echogenic focus:no Ventriculomegaly:no Nuchal fold:normal Echogenic bowel:no Pyelectasis:no Short femur:no Short humerus:no Nasal bone:present Display risk:Risk at time of screening Maternal Structures Uterus / Cervix Uterus:Visualized Uterus details:Normal Cervix:Visualized Cervix details:Long and closed Cervical etigvx94.8 mm Ovaries / Tubes / Adnexa Rt ovary:Visualized Rt ovary details:Normal Rt ovary D133.3 mm Rt ovary D227.5 mm Rt ovary D324.7 mm Rt ovary Vol11.8 cm? Lt ovary:Visualized Lt ovary details:Normal Lt ovary D126.7 mm Lt ovary D214.5 mm Lt ovary D328.9 mm Lt ovary Vol5.9 cm? Authorizing ProviderResult TypeResult StatusCorey Randolph Del Rio [facility] PROCEDURESFinal Result from Last 3 Months Insurance
--- OUTSIDE RECORDS SUMMARY | 2025-07-21 06:39 | XMS_ITS | Encounter Summary ---
Author Organization [facility] Address [address] [place] [address] Care Team Providers Care Pole Framer Name Role Phone Unavailable Primary Care Provider Unavailabl e Encounter Details DateTypeDepartmentCare Team (Latest Contact Info)Xlpspjceyqm92/23/2025Telephone [facility] [address] [place] [address] [place] [id number] Sandy De León MA Social History Tobacco UseTypesPacks/DayYears UsedDateSmoking Tobacco: Never Assessed Estimated Date of WukywpluRkojovmnMjs44/15/2026Based on last menstrual period of 01/25/2025Sex and Gender InformationValueDate RecordedSex Assigned at BirthFemale 01/29/2024 3:29 PM EDTLegal VkiOslras43/12/2024 3:49 PM EDTGender IdentityFemale 01/29/2024 3:29 PM EDTSexual RimrbtxvxejRngpaskr53/14/2024 3:29 PM EDTdocumented as of this encounter Miscellaneous Notes * Telephone Encounter - Sandy De León MA - 07/09/2025 1:38 PM EDT Pt called in stating she had tested her urine at her office and everything was normal except for protein. Pt will decline urine culture at this time and will call back if sx's persist. * Telephone Encounter - Sandy De Lóen MA - 07/09/2025 9:20 AM EDT Patient called regarding urine culture that was supposed to be sent out on 07/07/2025. Unfortunately, the culture was not sent out due to an oversight. Apologized to the patient for the inconvenience. Provided two options: to either send in UTI medication or have her drop off a new urine sample to be sent out today. Patient opted to provide a new sample and will stop in today. documented in this encounter Plan of Treatment DateTypeDepartmentCare Team (Latest Contact Info)Thgexmqzfui33/18/2025 8:00 AM ESTAncillary Procedure ERVIN GRIFFITHS [address] [place] [place] [id number] 08/04/2025 8:30 AM ESTRoutine ERVIN GRIFFITHS [address] [place] [address] Pee Del Rio DO [address] [place] [address] documented as of this encounter Visit Diagnoses Not on filedocumented in this encounter
--- OUTSIDE RECORDS SUMMARY | 2025-07-21 06:39 | XMS_ITS | CCD ---
Author Organization [facility] Care Team Providers Care Ground Products Director Name Role Phone Giovany Josue Unavailable Unavail able Li Guillen Primary Care Provider Li Guillen Primary Care Provider ANGELIA MCCARTHY Attending Unavailable VERA, JENNIE Referring Unavailable LI GUILLEN F Primary Care Unavailable VERA, JENNIE Attending Unavailable LI GUILLEN F Primary Care Unavailable DIANE CASAREZ Attending Unavailable Unavailable Primary Care Provider UnavailJAMES Cavanaugh Primary Care Unavailable JAMES ROMERO Primary Care Unavailable ELIANE, Pee R Admitting Unavailable ELIANE, Pee R Attending Unavailable JAMES ROMERO Attending Unavailable JAMES ROMERO Admitting Unavailable JAMES ROMERO Primary Care Unavailable JAMES ROMERO M Primary Care Unavailable JAMES ROMERO M Attending Unavailable Brianna Ashton Attending Unavailable JAMES [...] Attending Unavailable ELIANE, Pee R Admitting Unavailable LUCA, ASHISH A Attending Unavailable LUCA, ASHISH A Admitting Unavailable LUCA, ASHISH A Admitting Unavailable LUCA, ASHISH A Attending Unavailable ELIANE, Pee R Admitting Unavailable ELIANE, Pee R Attending Unavailable LUCA, ASHISH A Attending Unavailable Brianna Ashton Attending Unavailable LUCA, ASHISH A Attending Unavailable Unavailable Primary Care Provider Unavailabl e LUCA, ASHISH A Attending Unavailable LUCA, ASHISH A Admitting Unavailable ELIANE, PEE Attending Unavailable ELIANE, PEE Attending Unavailable ELIANE, PEE Attending Unavailable ELIANE, PEE Attending Unavailable ELIANE, PEE Referring Unavailable ELIANE, PEE Attending Unavailable Medications Current Medications MedicationDrug Class(es)DatesSig (Normalized)Sig (Original)Doxylamine Succinate, Sleep, (UNISOM PO) (16 sources)Start: 90-98-4305Ljgpppuhyr Succinate, Sleep, (UNISOM PO) 03/09/2025 ActiveFIBER GUMMIES PO (16 sources)Start: 17-43-2315QWFHC GUMMIES PO 04/06/2025 Activeletrozole 2.5 mg oral tablet (2 sources)Aromatase InhibitorStart: 11-04-2024 End: 26-67-7434kjxr 1 tablet by mouth once dailyletrozole (Femara) 2.5 MG chemo tablet Indications: Encounter for infertility , PCOS (polycystic ovarian syndrome) , Abnormal uterine bleeding (AUB) Take 1 tablet (2.5 mg total) by mouth Daily for 5 days. Take with or without food. 5 tablet 11/04/2024 11/09/2024 Activemeclizine hydrochloride 25 mg oral tablet (6 sources)AntiemeticStart: 06-09-2025 End: 98-91-1310hflk 1 tablet by mouth twice daily as needed for dizziness meclizine (Antivert) 25 MG tablet Indications: Nausea Take 1 tablet (25 mg) by mouth 2 (two) times a day as needed for dizziness 60 tablet 1 06/09/2025 07/09/2025 Likpjk62 hr metFORMIN hydrochloride 500 mg extended release oral tablet (6 sources)BiguanideStart: 11-04-2024 End: 89-83-2432zwqa 1 tablet by mouth every twenty-four hours at mealtime metFORMIN XR (Glucophage-XR) 500 MG 24 hr tablet Indications: PCOS (polycystic ovarian syndrome) , Abnormal uterine bleeding (AUB) Take 1 tablet (500 mg) by mouth in the evening. Take with meals Do not crush, chew, or split. 30 tablet 11 11/04/2024 03/27/2025 Discontinuedondansetron 4 mg oral tablet (20 sources)Serotonin-3 Receptor AntagonistStart: 03-27-2025 End: 66-34-3403dauhwzguylp (Zofran) 4 MG tablet Indications: Nausea Take 2 tablets (8 mg) by mouth if needed for nausea or vomiting 20 tablet 2 06/09/2025 ActiveStart: 91-76-7248cyhp 1 tablet by mouth every six hours as needed for nauseaondansetron 4 mg Tab 4 mg = 1 tab(s), Oral, q6hr, PRN Nausea/Vomiting, # 10 tab(s), Refills(s) 0, Pharmacy: [id number], 166, cm, 07/25/24 9:47:00 EST, Height/Length Dosing, 92.6, kg, 07/25/24 9:47:00 EST, Weight Dosing Start Date: 10/20/24 Status: Ordered Quantity: 10.0 Unit: tab(s) Repeat number: 1 Start: 36-77-4306yrimviqtbwp (ZOFRAN) 4 mg tablet Take 4 mg by mouth. 0 02/04/2021 ActiveStart: 25-35-9304rxfa 1 tablet by mouth every eight hours as neededondansetron orally disintegrating 4 mg disintegrating tablet Take 1 tablet by mouth every 8 hours as needed for Nausea/Vomiting. 8 tablet 0 09/02/2012 ActiveComment on above:Take 1 tablet by mouth every 8 hours as needed for Nausea/Vomiting.Take 4 mg by mouth. Vit-Fe Fumarate-FA ( VITAMIN AND MINERAL PO) (16 sources)Start: 95-16-5328Lfpcpvqd Vit-Fe Fumarate-FA ( VITAMIN AND MINERAL PO) 04/06/2025 Activepromethazine hydrochloride 12.5 mg oral tablet (12 sources)PhenothiazineStart: 05-12-2025 End: 76-21-4782rzhd 1 tablet by mouth every four hours for nausea and nausea promethazine (Phenergan) 12.5 MG tablet Indications: Nausea Take 1 tablet (12.5 mg) by mouth every 4 (four) hours 180 tablet 1 05/12/2025 08/10/2025 Active pyridoxine hydrochloride 25 mg oral tablet (16 sources)Start: 59-09-2716nstnmumpcx (Vitamin B-6) 25 MG tablet 03/09/2025 Activetropicamide 10 mg/ml ophthalmic solution (1 source)AnticholinergicStart: 10-11-2021 End: 14-52-3694pbesxbaqebx 1 % 1 Drop (MYDRIACYL) Completed/Discontinued Medications MedicationDrug Class(es)DatesSig (Normalized)Sig (Original)azithromycin 250 mg oral tablet (1 source)Macrolide Antimicrobialtake 1 tablet by mouth once dailyazithromycin 250 mg tablet Take 250 mg by mouth once daily. 0 ActiveComment on above:Take 250 mg by mouth once daily.levonorgestrel 0.609227 mg/hr intrauterine system (1 source)Progestin, Progestin-containing Intrauterine Devicelevonorgestrel (MIRENA) 20 mcg/24 hours (7 yrs) 52 mg IUD 1 Each by INTRAUTERINE route. 0 ActiveComment on above:1 Each by INTRAUTERINE route.phentermine hydrochloride 37.5 mg oral tablet (4 sources)Sympathomimetic Amine AnorecticStart: 66-12-4128asdnuxlvsre 37.5 mg Tab 37.5 mg = 1 tab(s), Oral, Daily, 30 EA, 0 Refill(s), TAKE 1 TABLET BY MOUTH EVERY MORNING (BEFORE BREAKFAST) FOR 30 DAYS., # 30 tab(s), Refills(s) 0, Pharmacy: [id number], 166, cm, 07/25/24 9:47:00 EST, Height/Length Dosing, 92.6, kg, 07/25/24 9:47:00 EST, Weight Dosing Start Date: 07/25/24 Status: Ordered Quantity: 30.0 Unit: tab(s) Repeat number: 1predniSONE 20 mg oral tablet (1 source)Start: 95-38-5977bvck 1 tablet by mouth twice dailypredniSONE 20 mg tablet Take 1 tablet by mouth twice daily. 8 tablet 0 09/02/2012 ActiveComment on above:Take 1 tablet by mouth twice daily.triamcinolone acetonide 0.001 mg/mg topical ointment (8 sources)CorticosteroidStart: 28-85-3977kfqgpgwrsrcwi acetonide (KENALOG) 0.1 % ointment End: 56-65-7545akepegwqxdtfb (Kenalog) 0.5 % cream Apply topically if needed 03/27/2025 Discontinued Problems Active Problems Problem ClassificationProblemDateDocumented DateEpisodic/ChronicBlindness and vision defects (2 sources)Disorder of refraction; Translations: [Unspecified disorder of refraction]EpisodicContraceptive and procreative management (6 sources)Patient encounter status; Translations: [Encounter for procreative management, unspecified]74-93-9710RlnrxifeZtrjgozqmisqe and screening for infectious disease (2 sources)Exposure to sexually transmissible disorder; Translations: [Contact with and (suspected) exposure to infections with a predominantly sexual mode of transmission]42-05-9171LnvkbcrmEjlnwiwib disorders (1 source)Missed period; Translations: [Irregular menstruation, unspecified] 72-57-8627KgcywhnYhfoft and vomiting (5 sources)Nausea; Translations: [Nausea]62-37-1260QgvqytveVnezi complications of (2 sources)Vanishing twin syndrome; Translations: [Continuing after spontaneous of one fetus or more, unspecified trimester, not applicable or unspecified]59-47-1936XqaojhyiPodxh complications of (2 sources)Elderly primigravida; Translations: [Supervision of elderly primigravida, unspecified trimester]78-30-9079MfzvrwqoSuggp endocrine disorders (20 sources)Polycystic ovary syndrome; Translations: [Polycystic ovarian syndrome]Onset: 175348-19-0919GnymfobNtvzm endocrine disorders (2 sources)Disorder of endocrine system; Translations: [Endocrine disorder, unspecified]60-52-6903SccrarfiIzutd female genital disorders (2 sources)Abnormal uterine bleeding; Translations: [Abnormal uterine and vaginal bleeding, unspecified]37-30-2108CmsfjxmWtqst nutritional; endocrine; and metabolic disorders (4 sources)Body mass index 30+ - hykehor13-58-7784TeaijxoBkeoe nutritional; endocrine; and metabolic disorders (4 sources)Tswrsrc11-19-7826AkleogbCeyia nutritional; endocrine; and metabolic disorders (4 sources)Weight vcei23-47-1035KcshsxugDahtw and delivery including normal (20 sources)Urine test positive; Translations: [Encounter for test, result positive]Onset: 361254-28-4535CvnfsyaaGxvgisvj codes; unclassified (2 sources)Gestation period, 13 weeks; Translations: [13 weeks gestation of ]53-25-8482QndbqjpnSgsgliyt codes; unclassified (2 sources)Gestation period, 15 weeks; Translations: [15 weeks gestation of ]15-49-2938NmqzerliLxpmiurc codes; unclassified (2 sources)Gestation period, 19 weeks; Translations: [19 weeks gestation of ]17-13-8817CqftwjhnHlmxeugc codes; unclassified (2 sources)Gestation period, 23 weeks; Translations: [23 weeks gestation of ]26-42-9324XnakeeemPnkwrhnggicb (2 sources)Contusion of lower back and pelvis, initial encounter / S30.0XXA(ICD-10)Onset: 44-85-6482Ymgtlbacfauy (12 sources)Patient encounter ieortx16-62-2724 Past or Other Problems Problem ClassificationProblemDateDocumented DateEpisodic/ChronicFracture of lower limb (2 sources)Closed fracture of ankle; Translations: [Other fracture of unspecified lower leg, initial encounterfor closed fracture]Onset: 08-08-2006 52-07-6750OkysdvleFofwoyndnzjk (1 source)Contusion of lower back and pelvis, initial encounter; Translations: [Contusion of lower back and pelvis, initial encounter]Onset: 10-08-2017 Results Test NameValueInterpretationReference RangeFacilityUrinalysis macro (dipstick) panel (U)on 60-52-5124Jvmnozqss, UANegativeNegative - 4(70) +++ mg/dLNOMS HealthcareBlood, UAPositiveNegative - 50 Jerry/mcLNOMS HealthcareClarity, UAClear N[facility]S HealthcareColor, UAYellowNOMS HealthcareGlucose, UANegativeNegative - 2000(110) ++++ mg/dLNOMS HealthcareInterpretation and review of laboratory resultsAbnormalNOMS HealthcareKetones, UANegativeNegative - 160(16) ++++ mg/dL [facility] HealthcareLeukocytes, UAPositiveNegative - 500+++ Roberta/mcLNOIL Healthcare Nitrite, UANegativeNegative - PositiveNOMS HealthcarepH, UA5.55 - 9NOMS HealthcareProtein, UAPositiveNegative - 2000(20) ++++ mg/dLNOIL HealthcareSpec Grav, UA1.0301 - 1.03NOMS HealthcareUrobilinogen, UA1.00.2 - 12 mg/dLNOIL HealthcareNOMS HealthcareUS for pregnancyon 34-20-2980Eyalgftvkpk by: Alyssa Gardner Indication ======== Detailed Anatomy [...] Weight gain (lb) 0 lb BMI 34.46 kg/m Physical Exam Initial weight (lb) 220 lb [...] EFW (oz) 12 oz EFW by: Hadlock (PUV-ZJ-NA-FL) Extended Assault Amphibious Vehicle Crewman 9.0 mm CM 4.7 mm 38% Nicolaides [...] Normal LVOT view: Normal 3-vessel view: Normal 6-trehil-qgjbxgh view: Normal Heart / Thorax Situs: situs [...] yrs Echogenic focus: no Ventriculomegaly: no Nuchal f (more content not included)... Alyssa Mullen MD - 06/16/2025 Interpreted by: Alyssa Gardner Indication ======== Detailed Anatomy for AMA Primigravida, Class I Obesity (BMI 30-34.9) History ====== General History Cxznve545 cm Height (ft)5 ft Height (in)7 in Previous Outcomes Gravida1 Para0 Maternal Assessment Qkfhha915 cm Height (ft)5 ft Height (in)7 in Betczm049 kg Weight (lb)220 lb Weight gain0 kg Weight gain (lb)0 lb BMI34.46 kg/m Physical Exam Initial weight (lb)220 lb ========= Weinberg . Number of fetuses: 1 Dating ====== LMP on:01/25/2025 Cycle:Very certain LMP, regular cycle GA by LMP20 w + 2 d MEHUL by LMP:11/01/2025 Conception:LMP Ultrasound examination on:06/16/2025 GA by U/S based upon:AC, BPD, Femur, HC GA by U/S20 w + 2 d MEHUL by U/S:11/01/2025 Assigned:based on the LMP, selected [...] 37% Hadlock Femur34.3 mm20w 6d 60% Hadlock Ekjrmeq91.6 mm 57% Chitty HC / AC1.17 56% Hadlock YJC332 g20w 2d 48% Hadlock EFW (lb)0 lb EFW (oz)12 oz EFW by:Hadlock (BUU-LR-DT-FL) Extended Vp9.0 mm CM4.7 mm 38% Nicolaides Nasal bone5.4 mm Head / Face / Neck Cephalic index0.77 26% Nicolaides Nasal bone:present Extremities / Bony Struc FL / BPD0.73 71% Hadlock FL / HC0.20 89% Hadlock FL / AC0.23 84% Hadlock Other Structures FAE873 bpm Anatomy Cranium:Normal Lateral ventricles:Normal Choroid plexus:Normal Midline falx:Normal Cavum septi pellucidi:Normal Cerebellum:Normal Cisterna magna:Normal Head / Neck Head size:Normal Head shape:Normal Rt lateral ventricle:Normal Lt lateral ventricle:Normal Rt choroid plexus:Normal Lt choroid plexus:Normal Thalami:Normal Cerebellar lobes:Normal Vermis:Normal Neck:Normal Neck:No neck masses seen Lips:Normal Profile:Normal Nose:Normal Face Nasal bone:present Maxilla:Normal Mandible:Normal Orbits:Normal 4-chamber view:Normal RVOT view:Normal LVOT view:Normal 3-vessel view:Normal 8-yywhkq-sfyiubg view:Normal Heart / Thorax Situs:situs solitus (normal) [...] focus:no Ventriculomegaly:no Nuchal fold:normal Echogenic bowel:no Pyelectasis:no (more content not included)...[facility] Work Phone: Source Facility: [facility] Interpreted by: Alyssa Gardner Indication ======== Detailed [...] Weight gain (lb) 0 lb BMI 34.46 kg/m??? Physical Exam Initial weight (lb) 220 lb [...] EFW (oz) 12 oz EFW by: Hadlock (MEJ-PE-KV-FL) Extended Assault Amphibious Vehicle Crewman 9.0 mm CM 4.7 mm 38% Nicolaides [...] Normal LVOT view: Normal 3-vessel view: Normal 3-mpsmlk-ukpnzrg view: Normal Heart / Thorax Situs: situs [...] sex: yes Genetic Screen Age 35 yrs (more content not included)...Radiology, Radiologist, - 06/16/2025 Source Facility: [facility] Interpreted by: Alyssa Gardner Indication ======== Detailed [...] Weight gain (lb) 0 lb BMI 34.46 kg/m??? Physical Exam Initial weight (lb) 220 lb [...] EFW (oz) 12 oz EFW by: Hadlock (ZNR-LY-CR-FL) Extended Assault Amphibious Vehicle Crewman 9.0 mm CM 4.7 mm 38% Nicolaides [...] Normal LVOT view: Normal 3-vessel view: Normal 5-pfkprm-keenmlm view: Normal Heart / Thorax Situs: situs [...] hands: Normal Position of feet: Normal sex: ma (more content not included)...NOMS HealthcareRadiology Study observation (narrative)[facility] Work Phone: US for pregnancyOrdered By: Alyssa Gardner on 84-06-6043OleubdalacAccess [facility] Work Phone: US for pregnancyOrdered By: Radiologist Radiology on 17-00-9724[facility] Work Phone: US for pregnancyon 85-27-7914Dqctzgdks Study observation (narrative)[facility] HealthcareUrinalysis macro (dipstick) panel (U)on 03-90-0040Vwalqinxs, UANegativeNegative - 4(70) +++ mg/dLNOMS HealthcareBlood, UANegativeNegative - 50 Jerry/mcLNOMS HealthcareClarity, UAClearNOMS Healthcare Color, UAYellowNOMS HealthcareGlucose, UANegativeNegative - 2000(110) ++++ mg/dL [facility] HealthcareInterpretation and review of laboratory resultsAbnormalNOMS HealthcareKetones, UANegativeNegative - 160(16) ++++ mg/dLNOIL Healthcare Leukocytes, UAPositiveNegative - 500+++ Roberta/mcLNOMS HealthcareComment on above: 1+Nitrite, UANegativeNegative - PositiveNOMS HealthcarepH, UA6.55 - 9NOMS HealthcareProtein, UANegativeNegative - 2000(20) ++++ mg/dLNOMS HealthcareSpec Grav, UA1.0151 - 1.03NOMS HealthcareUrobilinogen, UA0.20.2 - 12 mg/dLNOMS HealthcareNOMS HealthcareLipid Panelon 45-38-5920Hszksjgoqal [Mass/Vol]231 mg/dL Hjkq862-528OsfjdwPike Community HospitalComment on above:Performed By: #### [id number] #### [facility] [address], [place] [address]Gmseilnarog in HDL [Mass/Vol]61 mg/dLInvalid Interpretation CodePike Community HospitalComment on above:Result Comment: '>= 60 LOW RISK' '<= 40 HIGH RISK'Performed By: #### [id number] #### [facility] [address], [place] [address]Afpcvzoojgx in LDL [Mass/Vol]148 mg/dLHigh<=129Pike Community HospitalComment on above:Performed By: #### [id number] #### [facility] [address], [place] [address]Tpykyfzctyn in VLDL [Mass/Vol]47 mg/dLHigh7-40Pike Community HospitalComment on above:Performed By: #### [id number] #### [facility] [address], [place] [address]Qqoeqnthhuon [Mass/Vol]237 mg/dLHigh<=149Pike Community HospitalComment on above:Performed By: #### [id number] #### [facility] [address], [place] [address]NGK, SERUM, OPEN SPINA BIFIDAon 20-51-6539YAX MOM0.81.[facility] HealthcareAFP VALUE22.0 ng/mL.[facility] HealthcareCOMMENT:Comment.[facility] Comment on above:Sheri Soni, Ph.D., [facility] Director References: Available Upon Request. Multiples Of Median Cutoffs For AFP Elevations Weinberg 2.5 Black 2.8 IDD 2.0 Twins 4.5 Abbreviation Definitions IDD - Insulin Dep Diabetes OSBR - Open Spina Bifida Risk For further inquiries contact [facility] at [phone]. This test was developed and its performance characteristics determined by [employer]. It has not been cleared or approved by the Food and Drug Administration. Performed at: [facility]un[facility] [address] [facility], [place], [place] [id number] Special Officer: Jose Caal [facility], Phone: [phone] GEST. AGE ON COLLECTION DATE16.3. weeksNOMS HealthcareGESTAT. AGE BASED ONLMP. NOMS HealthcareComment on above:Recalculations are not recommended when gestational dating by LMP and ultrasound are within 10 days. INSULIN DEP DIABETESNo.[facility] HealthcareINTERPRETATIONComment.[facility] Comment on above:Interpretation: Screen Negative This result is screen negative for OSB. The AFP MoM calculated is based on the gestational age provided. MS-AFP can identify up to 80% of open neural tube defects. Closed neural tube defects and some open defects may not be detected by this test. This test does not screen for Down Syndrome or Trisomy 18. If screening for Down Syndrome or Trisomy 18 is desired, contact [facility] [employer] [facility] to discuss available options. The [place] [employer] recommends amniocentesis be offered to women age 35 and older. MATERNAL AGE AT EDD37.8. yrNOIL HealthcareMULTIPLE GESTATIONNo.[facility] OSBR RISK 1 [id number].[facility] Medical CenterRACECaucasian.[facility] CenterRESULTSReport. [facility] CenterTEST RESULTS:Negative.[facility] Medical CenterFbbukejfzeSXMWUW072. lbsBEAVER VALLEY HOSPITAL HealthcarePREGNANCY N N LMP [id number] 2 15 N 1 Y 220 N N N N N White/ CLINISYNCNOIL HealthcareAmbulatory Visit Summaryon 22-90-3874Fwkxxhpycs Visit SummaryAmbulatory Visit Summary JEAN JASON E :1990 Visit Date:05/20/2025 Ambulatory Visit Instructions Your Diagnosis Wellness examination Your Care Team Attending Physician - ASHISH SEGOVIA CNP Primary Care Physician - ASHISH SEGOVIA CNP This Is Your Medications List ondansetron (ondansetron 4 mg Tab) phentermine (phentermine 37.5 mg Tab) Procedures Performed Cyst, Insertion of IUD. Discharge Vitals Blood Pressure 128/84 Height 166 cm Height 65 in Weight 101.2 kg Weight 223.108 lb BMI 36.73 Medications What How Much When Instructions Unchanged ondansetron (ondansetron 4 mg Tab) 1 Tablets By Mouth Every 6 hours as needed for Nausea/Vomiting Unchanged phentermine (phentermine 37.5 mg Tab) 1 Tablets By Mouth Every day 30 EA, 0 Refill(s), TAKE 1 TABLET BY MOUTH EVERY MORNING (BEFORE BREAKFAST) FOR 30 DAYS. Allergies No Known Allergies Problems Ongoing - Any problem that you are currently receiving treatment for. Encounter for removal of intrauterine contraceptive device (IUD) Encounter for weight management Obesity Obesity (BMI 30-39.9) Weight gain Wellness examination Patient Survey You may receive a survey via text or e-mail asking about your office visit. Please share your experience with us by completing your survey. We appreciate your feedback and thank you for choosing us for your care. Education Materials Health Maintenance, Female Adopting a healthy lifestyle and getting preventive care are important in promoting health and wellness. Ask your health care provider about: ??? The right schedule for you to have regular tests and exams. ??? Things you can do on your own to prevent diseases and keep yourself healthy. What should I know about diet, weight, and exercise? Eat a healthy diet ??? Eat a diet that includes plenty of vegetables, fruits, low-fat dairy products, and lean protein. ??? Do not eat a lot of foods that are high in solid fats, added sugars, or sodium. Maintain a healthy weight Body mass index (BMI) is used to identify weight problems. It estimates body fat based on height and weight. Your health care provider can help determine your BMI and help you achieve or maintain a healthy weight. Get regular exercise Get regular exercise. This is one of the most important things you can do for your health. Most adults should: ??? Exercise for at least 150 minutes each week. The exercise should increase your heart rate and make you sweat (moderate-intensity exercise). ??? Do strengthening exercises at least twice a week. This is in addition to the moderate-intensity exercise. ??? Spend less time sitting. Even light physical activity can be beneficial. Watch cholesterol and blood lipids Have your blood tested for lipids and cholesterol at 20 years of age, then have this test every 5 years. Have your cholesterol levels checked more often if: ??? Your lipid or cholesterol levels are high. ??? You are older than 40 years of age. ??? You are at high risk for heart disease. What should I know about cancer screening? Depending on your health history and family history, you may need to have cancer screening at various ages. This may include screening for: ??? Breast cancer. ??? Cervical cancer. ??? Colorectal cancer. ??? Skin cancer. ??? Lung cancer. What should I know about heart disease, diabetes, and high blood pressure? Blood pressure and heart disease ??? High blood pressure causes heart disease and increases the risk of stroke. This is more likely to develop in people who have high blood pressure readings or are overweight. ??? Have your blood pressure checked: ? Every 3???5 years if you are 18???39 years of age. ? Every year if you are 40 years old or older. Diabetes Have regular diabetes screenings. This checks your fasting blood sugar level. Have the screening done: ??? Once every three years after age 40 if you are at a normal weight and have a low risk for diabetes. ??? More often and at a younger age if you are overweight or have a high risk for diabetes. What should I know about preventing infection? Hepatitis B If you have a higher risk for hepatitis B, you should be screened for this virus. Talk with your health care provider to find out if you are at risk for hepatitis B infection. Hepatitis C Testing is recommended for: ??? Everyone born from 1945 through 1965. ??? Anyone with known risk factors for hepatitis C. Sexually transmitted infections (STIs) ??? Get screened for STIs, including gonorrhea and chlamydia, if: ? You are sexually active and are younger than 24 years of age. ? You are older than 24 years of age and your health care provider tells you that you are at risk forthis type of infection. ? Your sexual activity has changed since you were last screened, and you are at increased (more content not included)...[facility] Medicine Office/Clinic Noteon [id number] Medicine Office/Clinic NoteFaedith nourse [facility]/Clinic Note Chief Complaint wellness HPI Staff Pt presents today for annual wellness. Health Maintenance: Pap: Currently . Last Labs: 01/12/24 History of Present Illness Patient presents for a wellness exam for her insurance. She is currently 15 weeks Review of Systems PHQ Score Initial Depression Screen Score: 0 SCORE Constitutional: no fever, no chills, no sweats, no weakness Skin: no Jaundice, no rash, no lesions, nopetechiae ENMT: no ear pain, no sore throat, no congestion, no hoarseness Respiratory: no shortness of breath, no cough, no orthopnea, no wheezing Cardiovascular: no chest pain, no palpitations, no edema Gastrointestinal: no nausea, no vomiting, no diarrhea, no GI bleeding Genitourinary: no dysuria, no hematuria, no discharge, no pain Musculoskeletal: no back pain, no trauma Neurologic: no headache, no dizziness, no numbness, no weakness Psychiatric: no sleeping problems, no irritability, no mood swings/depression. Heme/Lymph: no bleeding tendency, no bruising tendency, no petechiae, no swollen nodes Allergy/Immunologic: no seasonal allergies, no food allergies, no recurrent infections, no impairedimmunity Additional ROS info: Except as noted in the above Review of Systems and in the History of Present Illness all other systems have been reviewed and are negative or noncontributory. Physical Exam Vitals & Measurements HR: 96(Peripheral) BP: 128/84 SpO2: 98% HT: 166 cm HT: 65 in WT: 101.2 kg WT: 223.108 lb BMI: 36.73 General: alert, no acute distress Skin: warm, dry Head: no trauma, normocephalic Neck: Trachea midline, no adenopathy, no tenderness Eye: normal conjunctiva, sclera clear ENMT: TM's clear, oral mucosa moist, no pharyngeal erythema or exudate Cardiovascular: regular rate and rhythm, normal peripheral perfusion Respiratory: Lungs CTA, respirations non labored Gastrointestinal: soft, non distended, no tenderness, no guarding. Back: No tenderness, Normal ROM, Normal alignment. Extremities: no deformity, no trauma Neurological: oriented x 4, LOC appropriate for age, CN II-XII intact, motor strength equal & normal bilaterally, sensation equal & normal bilaterally, speech normal Psychiatric: cooperative, affect appropriate for age, normal judgement, normal psychiatric thoughts. Assessment/Plan 1. Wellness examination (Z00.00: Encounter for general adult medical examination without abnormal findings) Immunization UTD Continue with OB appointments Awaiting laboratory results Form completed for employer Ordered: Lipid Panel Follow-up With When Contact Information ASHISH SEGOVIA CNP, FAM Within 1 year [address] [place] [address] Business (1) Additional Instructions: Well adult Patient Education Health Maintenance, Female Health Maintenance, Female Problem List/Past Medical History Ongoing Encounter for removal of intrauterine contraceptive device (IUD) Encounter for weight management Obesity Obesity (BMI 30-39.9) Weight gain Wellness examination Historical No qualifying data Procedure/Surgical History Cyst, Insertion of IUD. Medications No active medications Allergies No Known Allergies Social History Alcohol - Low Risk, 05/10/2020 Never., 05/15/2025 Exercise - Does not exercise, 05/10/2020 Substance [...] Recorded 2024-05-01: VIS DATE: 04/22/2021 SARS-CoV-2 (COVID-19) mRNAMUL.ORD![id number] 09/15/2022 Recorded influenza virus vaccine, inactivated 07/10/2022 [...] acel/tetanus adult 05/11/2011 Recorded measles/mumps/rubella virus vaccine 01/29 (more content not included)...Normal [facility] HospitalComment on above:Result Comment: Electronically Signed By: ASHISH SEGOVIA CNP\Date and Time Signed: 05/20/25 08:42 EDT IGP,APTIMA HPV,AGE GDLNon 32-73-0708XQA LN AC TESTINGNote.[facility] Comment on above:TESTS RESULT FLAG UNITS REF RANGE LAB Clinician Provided Cytology Information Source.............Endoc[employer]ix Other.............. No. of containers..01 ThinPrep Vial Age Algo ACOG Veronica... FLAG LEGEND: L-Low Normal,H-High Normal,LL-Alert Low,HH-Alert High <-Panic Low,>-Panic High,A-Abnormal,AA-Critical Abnormal Performed at: 01 =[address] [place] [address] Sonam Iverson MD, HPV APTIMANegativeNegativeNOMS HealthcareComment on above:This nucleic acid amplification test detects fourteen high- risk HPV types (16,18,31,33,35,39,45,51,52,56,58,59,66,68) without differentiation. Performed at: =[address] [id number] Special Officer: Sonam Iverson MD, Phone: [phone] Performed at: [address], [place] [id number] Special Officer: Sonam Iverson MD, Phone: [phone] IGP, APTIMA HPV, RFX 16/18,45Note.[facility] SystemComment on above:TESTS RESULT FLAG UNITS REF RANGE LAB DIAGNOSIS: 02 NEGATIVE FOR INTRAEPITHELIAL LESION OR MALIGNANCY. THIS SPECIMEN WAS RESCREENED PART OF OUR DIRECTOR SANITATION BUREAU PROGRAM. Specimen adequacy: 02 Satisfactory for evaluation. No endocervical component is identified. An endocervical component is not commonly seen in the patient. Performed by: 02 Fidelia Lorenz, Dry Talc Racker (ASCP) QC reviewed by: 02 Jeimy Grigsby, Dry Talc Racker (ASCP) . 02 Note: Note 02 The [...] <-Panic Low,>-Panic High,A-Abnormal,AA-Critical Abnormal Performed at: [address] [place] [address] Sonam Iverson MD, SPATULA-ALONE ENDOCERVIX CLINISYNCNOMS HealthcareRECURRENT VAGINITIS (HTRX)on 28-28-0894YYCKEPOBW VAGINAE 0N[facility]S HealthcareATOPOBIUM VAGINAENot detectedNOMS HealthcareBVAB 2,3 (BACTERIAL VAGINOSIS ASSOCIATED BACTERIA 2, 3); MOBILUNCUS [id number] HealthcareBVAB 2,3 (BACTERIAL VAGINOSIS ASSOCIATED BACTERIA 2, 3); MOBILUNCUS SPPNot detectedNOMS HealthcareCANDIDA ALBICANS, PARAPSILOSIS, DNABRXBGEV0IZZY HealthcareCANDIDA ALBICANS, PARAPSILOSIS, TROPICALISNot detectedNOMS HealthcareCANDIDA GLABRATA0 N[facility] HealthcareCANDIDA GLABRATANot detectedNOMS HealthcareCANDIDA XSXRCH0DLCL HealthcareCANDIDA KRUSEINot detectedNOMS HealthcareCHLAMYDIA LUNPJKAGIER4DVBT HealthcareCHLAMYDIA TRACHOMATISNot detectedNOMS HealthcareGARDNERELLA VAGINALIS0 [facility] HealthcareGARDNERELLA VAGINALISNot detectedNOMS HealthcareMEGASPHAERA (TYPES 1, 2)0NOMS HealthcareMEGASPHAERA (TYPES 1, 2)Not detectedN[facility] Healthcare MYCOPLASMA YKTCFXQATF9RZNZ HealthcareMYCOPLASMA GENITALIUMNot detectedNOMS HealthcareNEISSERIA MABIYCMOZTL4TFFO HealthcareNEISSERIA GONORRHOEAENot detected [facility]S HealthcareTRICHOMONAS FLNNBDTUY6IETY HealthcareTRICHOMONAS VAGINALISNot detectedNOMS HealthcareNOMS HealthcareUrinalysis macro (dipstick) panel (U)on 94-23-1681Yslmxevom, UANegativeNegative - 4(70) +++ mg/dLNOIL HealthcareBlood, UANegativeNegative - 50 Jerry/mcLNOIL HealthcareClarity, UAClearNOMS Healthcare Color, UAYellowNOMS HealthcareGlucose, UANegativeNegative - 2000(110) ++++ mg/dL NOM HealthcareInterpretation and review of laboratory resultsAbnormalNOMS HealthcareKetones, UANegativeNegative - 160(16) ++++ mg/dLNOIL Healthcare Leukocytes, UANegativeNegative - 500+++ Roberta/mcLNOMS HealthcareNitrite, UA NegativeNegative - PositiveNOMS HealthcarepH, UA15 - 9N[facility] HealthcareProtein, UA NegativeNegative - 2000(20) ++++ mg/dLNOIL HealthcareSpec Grav, UA1.0151 - 1.03 N[facility] HealthcareUrobilinogen, UA0.20.2 - 12 mg/dLNOAscension All [facility] BOX TESTon 41-12-0453ZYG TEST SENT OUTYESac-Osage HospitalAeclovulfbQQD9OTOPGIVVM Healthcare BOXNOIL HealthcareCLINISYNCNOMS HealthcareUS OB TRANSVAGINALon 75-74-4884QW OB TRANSVAGINALEXAM: US OB TRANSVAGINAL HISTORY: Viability. COMPARISON: Ob [...] to a gestational age of 10 weeks 2days (+/- 6 days). A yolk sac is [...] II, MD, PHD at 08-Apr-2025 10:16:34 AM [facility] [place] TeleradiologyNormalNot AvailableComment on above:Order Comment: US OB VIABILITY PLEASE PERFORM TRANSVAGINAL ULTRASOUND IF INDICATED Patient's last menstrual period was 01/25/2025.HCG ( test) Ql (U)on 54-05-1443Vcbemzbvkkuqdt and review of laboratory resultsAbnoMercy Memorial Hospital Healthcare Preg Test, UrPositiveNegativeNOMS HealthcareNOMS HealthcareUS OB TRANSVAGINALon 65-88-8265ZK OB TRANSVAGINALFINDINGS: A single intrauterine gestational sac is present. [...] 15 x 15 mm with a several millimeterechogenic 2 x 2 mm focus, nonshadowing, atypical for a normal appearing yolk sac and may represent a second nonviable gestation. IMPRESSION: Single viable intrauterine with secondary endometrial findings described above. This study can serve as a baseline for follow-up examinations, current crown-rump length 1.9 cm, consist withwith an 8 weeks and 3 days gestational age. TRANSCRIBED BY: ELECTRONICALLY SIGNED BY: Maria Fernanda Roberson AvailableComment on above:Order Comment: US OB TRANSVAGINAL No LMP recorded.Urinalysis macro (dipstick) panel (U)on 97-72-0905Zrrkcgkxh, UA NegativeNegative - 4(70) +++ mg/dLNOMS HealthcareBlood, UANegativeNegative - 50 Jerry/mcLNOMS HealthcareClarity, UAClearNOMS HealthcareColor, UAYellowNOMS HealthcareGlucose, UANegativeNegative - 2000(110) ++++ mg/dLN[facility] Interpretation and review of laboratory resultsNormGuthrie ClinicKetones, UA NegativeNegative - 160(16) ++++ mg/dLNOMS HealthcareLeukocytes, UANegative Negative - 500+++ Roberta/mcLNOIL HealthcareNitrite, UANegativeNegative - Positive N[facility] HealthcarepH, UA65 - 9NOMS HealthcareProtein, UANegativeNegative - 2000(20) ++++ mg/dLNOIL HealthcareSpec Grav, UA1.0251 - 1.03NOIL HealthcareUrobilinogen, UA0.20.2 - 12 mg/dLNOSaint John's Aurora Community HospitalNOIL HealthcareTBH PREG QUANT HCGon 02-27-2025 HCG WUMYCWJZQZBC000dZA/mLNOMS HealthcareComment on above:5-50 0.2-1 WEEK 50-500 1-2 WEEKS 100-5,000 2-3 WEEKS 500-10,000 3-4 WEEKS 1,000-50,000 4-5 WEEKS 10,000-100,000 5-6 WEEKS 15,000-200,000 6-8 WEEKS 10,000-100,000 2-3 [facility] PREG QUANT HCGon 11-49-5670EDV CLBJMKNFFCCJ568lNS/mL [facility] HealthcareComment on above:5-50 0.2-1 WEEK 50-500 1-2 WEEKS 100-5,000 2-3 WEEKS 500-10,000 3-4 WEEKS 1,000-50,000 4-5 WEEKS 10,000-100,000 5-6 WEEKS 15,000-200,000 6-8 WEEKS 10,000-100,000 2-3 MONTHS CLINISYVanderbilt Transplant CenterALL PROGESTERONEon 65-39-1159NJJDXDAVLJGT62.3 ng/mL.[facility] HealthcareComment on above:Follicular phase 0.1 - 0.9 Luteal phase 1.8 - 23.9 Ovulation phase 0.1 - 12.0 First trimester 11.0 - 44.3 Second trimester 25.4 - 83.3 Third trimester 58.7 - 214.0 Postmenopausal 0.0 - 0.1 Performed at: [facility] [address] [id number] Special Officer: Evan Valenzuela PhD, Phone: [phone] [facility] Children - PhiladelphiaDHEAon 82-81-8074FALP [Mass/Vol]139 ng/dLInvalid Interpretation Lxyz18-969StkflrPike Community HospitalComment on above:Result Comment: This test was developed and its performance characteristics determined by [employer]. It has not been cleared or approved by the Food and Drug Administration. Performed at: [address] [id number] MD Everett Harleyformed By: #### [id number] #### [facility] [address], [place] [address]Jdavkhdnhzaaef 01-31-7764Vxrytcfmkbvz Lvl5.59 ng/mLInvalid Interpretation CodeFisher Thomas B. Finan CenterComment on above:Result Comment: 'F NON FOLLICULAR = 0.10 - 0.60' 'LUTEAL = 3.00 - 17.5' 'MIDLUTEAL = 3.30 - 18.6' 'POST-MENOPAUSE = 0.10 - 0.40' '-FIRST TRIMESTER = 8.30 - 66.5' 'SECOND TRIMESTER = 18.9 - 66.1' 'THIRD TRIMESTER = 35.8 - 312.4' 'MALES = 0.14 - 2.06'Performed By: #### [id number] #### [facility] [address], [place] [address]QG Pelvis Non-OB Completeon 53-49-1800SP Pelvis Non-OB Complete Exam Date/Time: 11/11/2024 12:54 [...] Desmond Quinteros MD Transcribed by: MARVA Technologist: SARATHRiverside Methodist HospitalUS Transvaginal Non-OBon 63-70-6000TN Transvaginal Non-OBExam Date/Time: 11/11/2024 12:54 EST Reason for Exam: E28.2 Report See ultrasound pelvis non-OB for report of ultrasound pelvis transvaginal. Ordering Provider: Pee DEL RIO FINAL REPORT Dictated: 11/12/2024 12:14 pm Desmond Quinteros MD Signed (Electronic Signature): 11/12/2024 12:14 pm Signed by: Desmond Quinteros MD Transcribed by: MARVA Technologist: SARATHRiverside Methodist HospitalAnti- Mullerian Hormone (AMH)on 91-42-7879Snwashrwt inhibiting substance [Mass/Vol] 5.77 ng/mLInvalid Interpretation [facility] HospitalComment on above:Result Comment: For assays employing antibodies, the possibility exists for interference by heterophile antibodies in the samples.1 1.Andre Reed Interferences in Immunoassays - still a threat. Clin. Chem. 2000; 46: 2625-3475. This test was developed and its performance characteristics determined by [employer]. It has not been cleared or approved by the Food and Drug Administration. Reference Range: Females 36 - 40y: 0.42 - 8.34 Median 1.69 AMH concentrations of >= 1.06 ng/mL is correlated with a better response to ovarian stimulation, produced more retrievable oocytes and higher odds of live according to Gloria et al. Fertility and Sterility. 2010: 94:5207-8679. The current AMH test method correlates with [...] exclude an AMH-secreting ovarian tumor. Performed at: [employer] [address] [place] [id number] MD Rajeev Mckeonformed By: #### [id number] #### [facility] [address], [place] [address]RKVEnx 78-09-6656LEQI [Mass/Vol]101 ng/dLInvalid Interpretation Kays22-509HktoyyPike Community HospitalComment on above:Result Comment: This test was developed and its performance characteristics determined by [employer]. It has not been cleared or approved by the Food and Drug Administration. Performed at: [address] [id number] MD Everett Harleyformed By: #### [id number] #### [facility] [address], [place] [address]IYJIKuj 86-55-7954OGUA-S [Mass/Vol]91.8 microgram/dLInvalid Interpretation Code57.3-279.2FCincinnati VA Medical CenterComment on above:Result Comment: Performed at: [address] [id number] PhD Bianca Blancoformed By: #### [id number] #### [facility] [address], [place] [address]KZItj 65-41-8406Rlwkdgkjnew Qn5.2 m[IU]/mLInvalid Interpretation CodePike Community HospitalComment on above:Result Comment: Adult Female Range Follicular phase 3.5 - 12.5 Ovulation phase 4.7 - 21.5 Luteal phase 1.7 - 7.7 Postmenopausal 25.8 - 134.8 Performed at: [address] [id number] PhD Bianca GordonPerformed By: #### [id number] #### [facility] [address], [place] [address]PYis 15-65-5162Rbaxlatl Qn11.1 m[IU]/mLInvalid Interpretation CodeFishR Adams Cowley Shock Trauma CenterComment on above:Result Comment: Adult Female Range Follicular phase 2.4 - 12.6 Ovulation phase 14.0 - 95.6 Luteal phase 1.0 - 11.4 Postmenopausal 7.7 - 58.5 Performed at: [facility] [id number] PhD Bianca GordonPerformed By: #### [id number] #### [facility] [address] [place] [address]LlTJ Quanton 91-22-0513IFF.beta subunit Qnm[IU]/mLNormal1-3 [facility] HospitalComment on above:Result Comment: 'F NON < 1 - 3' ' 0.2 - 1 WEEK = 5 TO 50' ' 1 - 2 WEEKS = 50 - 500' ' 2 - 3 WEEKS = 100 - 5000' ' 3 - 4 WEEKS = 500 - 29873' ' 4 - 5 WEEKS = 1000 - 20008' ' 5 - 6 WEEKS = 35504 - 283075' ' 6 - 8 WEEKS = 54786 - 439450' ' 8 - 12 WEEKS = 42447 - 969179'Performed By: #### [id number] #### [facility] [address] [place] [address]XTO w/ Auto Diffon 76-24-5835Gvbrmpgmj/100 WBC (Bld)0.6 %Normal 0.0-2.0[facility] HospitalComment on above:Performed By: #### [id number] #### [facility] [address] [place] [address]Uexyhkvgx/Leukocytes Auto (Bld) [Pure # fraction]0.0 E9/LNormal 0.0-0.2Fgolden Thomas B. Finan CenterComment on above:Performed By: #### [id number] #### [facility] [address], [place] [address]Yieqmetkqkk (Bld) [#/Vol]0.1 E9/LNormal0.0-0.5FCincinnati VA Medical CenterComment on above:Performed By: #### [id number] #### [facility] [address] [place] [address] 45[address]Vqssprpmwmn/100 WBC (Bld)0.7 %Normal0.0-8.0[facility] HospitalComment on above:Performed By: #### [id number] #### [facility] [address] [place] [address]97[address]Ztnkmjhjvpz distribution width (RBC) [Ratio]14.0 %Normal 10.9-14.2FCincinnati VA Medical CenterComment on above:Performed By: #### [id number] #### [facility] [address] [place] [address]Ysktywvnkt (Bld) [Volume fraction]44.7 %Ahzhck65.0-46.0[facility] HospitalComment on above:Performed By: #### [id number] #### [facility] [address] [place] [address]Lebczdiyqq (Bld) [Mass/Vol]15.0 g/xMKtneim02.0-16.0[facility] HospitalComment on above:Performed By: #### [id number] #### [facility] [address] [place] [address] 26[address]Dfwxqdggzsw (Bld) [#/Vol]2.3 E9/LNormal1.0-4.0[facility] HospitalComment on above:Performed By: #### [id number] #### [facility] [address] [place] [address]Yytqqshbmyp/100 WBC (Bld)26.2 %Yqwauy09.0-50.0[facility] HospitalComment on above:Performed By: #### [id number] #### [facility] [address] [place] [address] 94[address]DOY (RBC) [Entitic mass]27.3 ayKkmzjh99.0-34.0[facility] HospitalComment on above:Performed By: #### [id number] #### [facility] [address] [place] [address]CJHP (RBC) [Mass/Vol]33.5 g/sJOisosc82.4-36.0[facility] HospitalComment on above:Performed By: #### [id number] #### [facility] [address] [place] [address]ZBA (RBC) [Entitic vol]81.3 gHHqydmm05.0-100.0[facility] HospitalComment on above:Performed By: #### [id number] #### [facility] [address] [place] [address]Pgtzdhldi (Bld) [#/Vol]0.5 E9/LNormal0.2-1.0[facility] HospitalComment on above:Performed By: #### [id number] #### [facility] [address] [place] [address]23[address]Dofxbtbfnjf (Bld) [#/Vol]5.7 E9/LNormal2.0-7.5FCincinnati VA Medical CenterComment on above:Performed By: #### [id number] #### [facility] [address] [place] [address]Ukeavxgbuqg/100 WBC (Bld)66.3 %Qcthis46.0-75.0[facility] HospitalComment on above:Performed By: #### [id number] #### [facility] [address] [place] [address]Kxowvthj mean volume (Bld) [Entitic vol]7.5 fLNormal6.4-10.8 [facility] HospitalComment on above:Performed By: #### [id number] #### [facility] [address] [place] [address]66[address]Kxjkcrmgj (Bld) [#/Vol]302.0 E9/XGxtslb341.0-500.0[facility] HospitalComment on above:Performed By: #### [id number] #### [facility] [address] [place] [address]CBN (Bld) [#/Vol]5.5 E12/LNormal4.3-5.9[facility] HospitalComment on above:Performed By: #### [id number] #### [facility] [address] [place] [address]HDH corrected for nucl RBC Auto (Bld) [#/Vol]8.6 E9/LNormal 4.0-11.0[facility] HospitalComment on above:Performed By: #### [id number] #### [facility] [address] [place] [address]NYSMMELNKHibmqnp By: SYSTEM SYSTEM on 75-62-7892Bedv T4 [Mass/Vol]0.89 ng/dLNormal0.58 - 1.64 ng/dLRemisol ChemHCG.beta subunit QnmIU/mL Normal1 - 3 mIU/mLRemisol ChemComment on above:Result Comment: 'F NON < 1 - 3' ' 0.2 - 1 WEEK = 5 TO 50' ' 1 - 2 WEEKS = 50 - 500' ' 2 - 3 WEEKS = 100 - 5000' ' 3 - 4 WEEKS = 500 - 97669' ' 4 - 5 WEEKS = 1000 - 01124' ' 5 - 6 WEEKS = 24495 - 467454' ' 6 - 8 WEEKS = 64129 - 784021' ' 8 - 12 WEEKS = 89567 - 114798'TSH Qn0.99 m[IU]/LNormal0.34 - 5.60 mcIU/mLRemisol ChemCHEMISTRYOrdered By: Catherine Armenta on 62-03-6653DmV0y (Bld) [Mass fraction]5.3 %Normal<=5.9%[facility] ChemAutoSSFree T4on 69-64-5192Ucyr T4 [Mass/Vol]0.89 ng/dLNormal0.58-1.64[facility] HospitalComment on above: Performed By: #### [id number] #### [facility] [address] [place], [place] [address]PYVLMGNTUKRtgwfdt By: SYSTEM SYSTEM on 73-93-9963Uqgkafdmh/100 WBC (Bld)0.6 %Normal0.0 - 2.0 %Remisol HemeBasophils/Leukocytes Auto (Bld) [Pure # fraction]0.0 E9/LNormal0.0 - 0.2 E9/LRemisol HemeEosinophils (Bld) [#/Vol]0.1 E9/LNormal0.0 - 0.5 E9/LRemisol HemeEosinophils/100 WBC (Bld)0.7 %Normal0.0 - 8.0 %Remisol HemeErythrocyte distribution width (RBC) [Ratio]14.0 %Qydhlu51.9 - 14.2 %Remisol HemeHematocrit (Bld) [Volume fraction]44.7 %Ponpdb64.0 - 46.0 % Remisol HemeHemoglobin (Bld) [Mass/Vol]15.0 g/dZGkrywa39.0 - 16.0 gm/dLRemisol HemeLymphocytes (Bld) [#/Vol]2.3 E9/LNormal1.0 - 4.0 E9/LRemisol Heme Lymphocytes/100 WBC (Bld)26.2 %Nisdkt30.0 - 50.0 %Remisol HemeMCH (RBC) [Entitic mass]27.3 kbUscrhm30.0 - 34.0 pgRemisol HemeMCHC (RBC) [Mass/Vol]33.5 g/dL Kxihid15.4 - 36.0 gm/dLRemisol HemeMCV (RBC) [Entitic vol]81.3 pAFhquqr45.0 - 100.0 fLRemisol HemeMonocytes (Bld) [#/Vol]0.5 E9/LNormal0.2 - 1.0 E9/LRemisol HemeMonocytes/100 WBC (Bld)6.2 %Normal4.0 - 14.0 %Remisol HemeNeutrophils (Bld) [#/Vol]5.7 E9/LNormal2.0 - 7.5 E9/LRemisol HemeNeutrophils/100 WBC (Bld)66.3 % Rorzae92.0 - 75.0 %Remisol HemePlatelet mean volume (Bld) [Entitic vol]7.5 fL Normal6.4 - 10.8 fLRemisol HemePlatelets (Bld) [#/Vol]302.0 E9/LXtkmui902.0 - 500.0 E9/LRemisol HemeRBC (Bld) [#/Vol]5.5 E12/LNormal4.3 - 5.9 E12/LRemisol HemeWBC corrected for nucl RBC Auto (Bld) [#/Vol]8.6 E9/LNormal4.0 - 11.0 E9/L Remisol FcpvXkvS9avj 96-09-9448IfV2t (Bld) [Mass fraction]5.3 %Normal<=5.9[facility] HospitalComment on above:Performed By: #### [id number] #### [facility] [address] [place] [address]Jwy Miscellaneous-LCon 98-33-4458Emo Miscellaneousorderable testInvalid Interpretation CodePike Community HospitalComment on above: Performed By: #### [id number] #### [facility] [address], [place] [address]Fug MiscellaneousOrderable testInvalid Interpretation Code [facility] HospitalComment on above:Performed By: #### [id number] #### [facility] [address] [place] [address]23[address]Dxh MiscellaneousOrderable testInvalid Interpretation Code [facility] HospitalComment on above:Performed By: #### [id number] #### [facility] [address], [place] [address]Ypfw Jjuf69071Bgvhizy Interpretation [facility] HospitalComment on above:Performed By: #### [id number] #### [facility] [address], [place] [address]Mfpu Vljl747044Knkllzz Interpretation [facility] HospitalComment on above:Performed By: #### [id number] #### [facility] [address], [place] [address]Amcm NameDHEAInvalid Interpretation CodePike Community HospitalComment on above:Performed By: #### [id number] #### [facility] [address], [place] [address]Syba NameAMHInvalid Interpretation CodePike Community HospitalComment on above:Performed By: #### [id number] #### [facility] [address], [place] [address]Lboxxootad - Chemistry and Chemistry - challengeOrdered By: Maria Luisa Lutz on 81-86-8631Pgspxj [Moles/Vol]91187 mmol/LInvalid Interpretation [facility] SendOutsSSNo Panel InformationOrdered By: Leia Foote on 58-93-8115Aud Miscellaneousorderable testInvalid Interpretation CodeMER[facility] [place] SendOutsSSNo Panel InformationOrdered By: Maria Luisa Lutz on 48-09-2685Pind Name DHEAInvalid Interpretation [facility] SendOutsSSReference Laboratory Testing Ordered By: Maria Luisa Lutz on 15-49-7282Nahflt [Moles/Vol]726691 mmol/LInvalid Interpretation CodeMER[facility] [place] SendOutsSSTest NameAMHInvalid Interpretation [facility] SendOutsSSTSHon 05-72-5340AXW Qn0.99 m[IU]/LNormal0.34-5.60[facility] HospitalComment on above:Performed By: #### [id number] #### [facility] [address], [place] [address]Yeumqw Medicine Office/Clinic Noteon 01-77-3382Wdirfw Medicine Office/Clinic NoteFaedith n[facility] Medicine Office/Clinic Note Chief Complaint Weight Management [...] She denies any adverse effects to the medicationand would like to continue on the medication. [...] (Z76.89: Persons encountering health services in other specifiedcircumstances) Continue Adipex - refill sent to the [...] medical support in addressing this problem. Your BMIand weight management will be followed at subsequent [...] medical support in addressing this problem. Your BMIand weight management will be followed at subsequent visits. Orders: phentermine, 37.5 mg = 1 tab(s), Oral, Daily, 30 EA, 0 Refill(s), TAKE 1 TABLET BY MOUTH EVERY MORNING (BEFORE BREAKFAST) FOR 30 DAYS., # 30 tab(s), Refills(s) 0, Pharmacy: [facility] 1155, 166,cm, 07/25/24 9:47:00 EST, Height/Length Dosing, 92.6, kg, ... Follow-up With When Contact Information ASHISH SEGOVIA CNP, FAM Within [address] [place] [id number] [facility] (1) Additional Instructions: Weight management [...] Recorded 2024-05-01: VIS DATE: 04/22/2021 SARS-CoV-2 (COVID-19) mRNAMUL.ORD![id number] 09/15/2022 Recorded influenza virus vaccine, inactivated 07/10/2022 Recorded 2024-05-01: NULL diphtheria/pertussis, acel/tetanus adult 02/06/2022 Recorded 2024-05-01: VIS DATE: 04/22/2021 influenza virus vaccine, inactivated 09/08/2021 Recorded SARS-CoV-2 (COVID-19) mRNA-1273 vaccine 09/08/2021 Recorded influenza virus vaccine, inactivated 06/29/2021 Rec (more content not included)...[facility] HospitalComment on above:Result Comment: Electronically Signed By: ASHISH SEGOVIA CNP\.luis\Date and Time Signed: 07/25/24 10:29 ESTMclean Southeast Medicine Office/Clinic Noteon [id number] Medicine Office/Clinic NoteFami Medicine Office/Clinic Note HPI Staff Jason is [...] (Z76.89: Persons encountering health services in other specifiedcircumstances) Discussed restarting Adipex at this visit- refill [...] medical support in addressing this problem. Your BMIand weight management will be followed at subsequent [...] medical support in addressing this problem. Your BMIand weight management will be followed at subsequent visits. 4. Nonsmoker (Z78.9: Other specified health status) Encouraged to continue as a non-smoker Orders: phentermine, 37.5 mg = 1 tab(s), Oral, Daily, 30 EA, 0 Refill(s), TAKE 1 TABLET BY MOUTH EVERY MORNING (BEFORE BREAKFAST) FOR 30 DAYS., # 30 tab(s), Refills(s) 0, Pharmacy: [id number], 166,cm, 07/02/24 11:29:00 EDT, Height/Length Dosing, 93.9, kg, 07/02... Follow-up With When Contact Information ASHISH SEGOVIA CNP, FAM Within 4 weeks [address] [place] [address] Business (1) Additional Instructions: Weight [...] Recorded 2024-05-01: VIS DATE: 04/22/2021 SARS-CoV-2 (COVID-19) mRNAMUL.ORD![id number] 09/15/2022 Recorded influenza virus vaccine, inactivated 07/10/2022 Recorded 2024-05-01: NULL diphtheria/pertussis, acel/tetanus adult 02/06/2022 Recorded 2024-05-01: VIS DATE: 04/22/2021 influenza virus vaccine, inactivated 09/08/2021 Recorded SARS-CoV-2 (COVID-19) (more content not included)...[facility] HospitalComment on above:Result Comment: Electronically Signed By: ASHISH SEGOVIA CNP\.br\Date and Time Signed: 07/02/24 11:53 EDTAmbulatory Visit Summaryon [id number] Visit SummaryAmbulatory Visit Summary JASON CORONEL :1990 Visit Date:05/01/2024 [...] you for choosing us for your care. [facility] Medicine Office/Clinic Noteon 06-18-6195Wpuryu Medicine Office/Clinic NoteMclean Southeast Medicine Office/Clinic Note HPI Staff Jason is [...] it prior to October 2023 and she lost20 lbs. She reports she would like to [...] (Z76.89: Persons encountering health services in other specifiedcircumstances) Start phentermine 37.5 mg oone tablet po [...] medical support in addressing this problem. Your BMIand weight management will be followed at subsequent [...] medical support in addressing this problem. Your BMIand weight management will be followed at subsequent [...] Tobacco Use:. Never Smokeless Tobacco Use:. Cigarettes, Householdtobacco concerns: No., 05/01/2024 Immunizations Vaccine Date Status Comments influenza virus vaccine, inactivated 06/18/2023 Recorded 2024-05-01: VIS DATE: 04/22/2021 SARS-CoV-2 (COVID-19) mRNAMUL.ORD![id number] 09/15/2022 Recorded influenza virus vaccine, inactivated 07/10/2022 [...] inactivated 06/28/2013 Recorded diphtheria/pertussis, acel/tetanus adult 05/11/2011 Recorde (more content not included)...[facility] HospitalComment on above:Result Comment: Electronically Signed By: LUCA REMY, ASHISH Hollis\zenon\Date and Time Signed: 05/01/24 11:41 EDTCytology Cervical or vaginal smear or scraping studyon [id number] HealthcareAmbulatory Visit Summaryon [id number] Visit SummaryAmbulatory Visit Summary JASON WHITE :1990 Visit Date:03/25/2024 Ambulatory Visit Instructions Your Diagnosis Encounter for removal of intrauterine contraceptive device (IUD) BMI 32.0-32.9,adult Non-smoker Your Care Team Attending Physician - Brianna Lawson Primary Care Physician - NICK REMY, JAMES Lund Procedures Performed Cyst, Insertion of IUD. Discharge [...] you for choosing us for your care. [facility] HospitalFami Medicine Office/Clinic Noteon 39-60-4670Qoatun Medicine Office/Clinic NoteFaedith [facility] Office/Clinic Note HPI Staff Jason is [...] intrauterine contraceptive device (IUD) (Z30.432: Encounter for removalof intrauterine contraceptive device) IUD removed without difficulty. see procedure note for details. pt would like to try to conceive for a few months. If she does not conceive she may consider reinsertion. all questions answered. RTC as needed Ordered: Removal IUD 38987 2. BMI 32.0-32.9,adult (Z68.32: Body mass index [...] Date Status influenza virus vaccine, inactivated 06/29/2020 RecordedNoMorrow County HospitalComment on above:Result Comment: Electronically Signed By: Brianna Lawson\.luis\Date and Time Signed: 07/09/24 13:14 EDTCBC w/ Auto Diffon 15-79-5277Kokqyxisw/100 WBC (Bld)0.5 %Normal0.0-2.0[facility] Comment on above:Performed By: #### [id number], [id number], 7434418, 9043240 #### [facility] [address] [place] [address] 41768Gaesppjin/Leukocytes Auto (Bld) [Pure # fraction]0.0 E9/LNormal 0.0-0.2FCincinnati VA Medical CenterComment on above:Performed By: #### [id number], [id number], 7925278, 8872389 #### [facility] [address] [place] [address] 54320Hsbgoxnfqtu (Bld) [#/Vol]0.1 E9/LNormal0.0-0.5FCincinnati VA Medical CenterComment on above:Performed By: #### [id number], 13930219, 8314106, 4273354 #### [facility] [address] [place] [address] 44134Enoeowuiifq/100 WBC (Bld)0.8 %Normal0.0-8.0[facility] HospitalComment on above:Performed By: #### 3024122, 00105959, 9757524, 3441309 #### [facility] [address] [place] [address] 50974Whtgznawohe distribution width (RBC) [Ratio]13.6 %Normal 10.9-14.2FCincinnati VA Medical CenterComment on above:Performed By: #### 0048611, 68953559, 9764950, 4287059 #### [facility] [address] [place] [address] 63398Lbdcilpajl (Bld) [Volume fraction]46.6 %High34.0-46.0[facility] HospitalComment on above:Performed By: #### 6671834, 55558748, 4182273, 2885824 #### [facility] [address] [place] [address] 00795Eebvrccule (Bld) [Mass/Vol]15.6 g/lNGiensm71.0-16.0[facility] HospitalComment on above:Performed By: #### 8370052, 07302591, 7296169, 4678324 #### [facility] [address] [place] [address] 594[address]Gnjdxfdmski (Bld) [#/Vol]2.3 E9/LNormal1.0-4.0[facility] HospitalComment on above:Performed By: #### 8878376, 19484465, 3304658, 5078378 #### [facility] [address] [place] [address] 39362Grrxzdztjmw/100 WBC (Bld)28.3 %Rppamo81.0-50.0[facility] HospitalComment on above:Performed By: #### 1686490, 66183057, 4045793, 8685611 #### [facility] [address] [place] [address] 59950QAV (RBC) [Entitic mass]28.4 unSzoyxm80.0-34.0[facility] HospitalComment on above:Performed By: #### 6840469, 63789090, 3244276, 7655712 #### [facility] [address] [place] [address] 89156QNQS (RBC) [Mass/Vol]33.5 g/yMOcjbzi34.4-36.0[facility] HospitalComment on above:Performed By: #### 9652689, 25306966, 4779126, 8508577 #### [facility] [address] [place] [address] 07883HDK (RBC) [Entitic vol]84.7 cPXjcioy44.0-100.0[facility] HospitalComment on above:Performed By: #### 3311564, 06562529, 7075946, 0287554 #### [facility] [address] [place] [address] 34829Tlvgdadvn (Bld) [#/Vol]0.6 E9/LNormal0.2-1.0[facility] HospitalComment on above:Performed By: #### 7315193, 15657537, 2605119, 9764563 #### [facility] [address], [place] [address]Cumnixgcsnf (Bld) [#/Vol]5.2 E9/LNormal2.0-7.5FCincinnati VA Medical CenterComment on above:Performed By: #### 7387949, 20028293, 3931188, 4887192 #### [facility] [address] [place] [address] 42253Bcdmmhrtkmm/100 WBC (Bld)63.4 %Zrypud84.0-75.0[facility] HospitalComment on above:Performed By: #### 1962530, 63247322, 0194071, 6683532 #### [facility] [address] [place] [address] 38502Xkrijmlt mean volume (Bld) [Entitic vol]7.1 fLNormal6.4-10.8 [facility] HospitalComment on above:Performed By: #### 7327025, 85635765, 8035556, 3049527 #### [facility] [address] [place] [address] 04463Juyrcrkqo (Bld) [#/Vol]287.0 E9/QKgjola578.0-500.0[facility] HospitalComment on above:Performed By: #### 3247218, 62754676, 0433744, 0892918 #### [facility] [address] [place] [address] 62881UEH (Bld) [#/Vol]5.5 E12/LNormal4.3-5.9[facility] HospitalComment on above:Performed By: #### 1330777, 83568974, 3072158, 2593303 #### [facility] [address] [place] [address] 90657XQO corrected for nucl RBC Auto (Bld) [#/Vol]8.2 E9/LNormal 4.0-11.0[facility] HospitalComment on above:Performed By: #### 3324102, 23240028, 5287667, 0341467 #### [facility] [address] [place] [address] 87413VOMnt 01-09-1599Pwnkwrw [Mass/Vol]9.2 mg/dLNormal8.9-11.1FCincinnati VA Medical CenterComment on above:Performed By: #### 4305579, 02537116, 0814698, 3482849 #### [facility] [address] [place] [address] 62031Ctjtwkvd [Moles/Vol]105 mmol/NOgtrgt594-913AqwnrvPike Community HospitalComment on above:Performed By: #### 1241817, 43769265, 5963711, 6612374 #### [facility] [address] [place] [address] 75311Wrbyjlg [Mass/Vol]89 mg/hSKhezas27-823QssnfePike Community HospitalComment on above:Performed By: #### 0287512, 69600953, 0158728, 3158415 #### [facility] [address] [place] [address] 59347Spzwbfgyn [Moles/Vol]3.9 mmol/LNormal3.5-5.3Fisher Thomas B. Finan CenterComment on above:Performed By: #### 1111854, 47979734, 7489780, 0182368 #### [facility] [address] [place] [address] 93214Jwrncr [Moles/Vol]138 mmol/FLtewzh125-613OfmolvPike Community HospitalComment on above:Performed By: #### 9649863, 12215189, 0363759, 5311766 #### [facility] [address] [place] [address] 97463Acwq nitrogen [Mass/Vol]15 mg/dLNormal5-21[facility] HospitalComment on above:Performed By: #### 3936571, 89060746, 0119241, 2498894 #### [facility] [address], [place] [address]Ewrvn gap [Moles/Vol]12 mmol/LNormal6-16[facility] HospitalComment on above:Performed By: #### 9923032, 43278575, 9326120, 4109386 #### [facility] [address], [place] [address]PK3 [Moles/Vol]25 mmol/RYhfrpj72-98DvrbruPike Community Hospital Comment on above:Performed By: #### 8541434, 33785346, 4904173, 2980835 #### [facility] [address], [place] [address]Dpzaxwwpad [Mass/Vol]0.7 mg/dLNormal0.5-1.3FCincinnati VA Medical CenterComment on above:Performed By: #### 2264916, 30541038, 3475270, 5861392 #### [facility] [address], [place] [address]Tkmt nitrogen/Creatinine [Mass ratio]21 No XaxnnFizj04-71MylynsPike Community HospitalComment on above:Performed By: #### 0867421, 89178562, 2419872, 1138965 #### [facility] [address], [place] [address]Vqrnwrk [Mass/Vol]4.3 g/dLNormal3.3-5.0[facility] HospitalComment on above:Performed By: #### 6163102, 66063481, 7596690, 5855490 #### [facility] [address], [place] [address]Khatuyr/Globulin (S) [Mass conc ratio]1.2Ffhzmu7.1-2.2FCincinnati VA Medical CenterComment on above:Performed By: #### 1470363, 99549248, 6490786, 8114023 #### [facility] [address], [place] [address]RIP [Catalytic activity/Vol]64 Int._Unit/WLtmrqc31-04FicfrsPike Community HospitalComment on above:Performed By: #### 1176310, 03175423, 1506018, 1098920 #### [facility] [address] [place] [address] 95[address]JSZ No additional P-5'-P [Catalytic activity/Vol]11 Int._Unit/L Normal6-46[facility] HospitalComment on above:Performed By: #### 4619389, 44381226, 8278375, 1872838 #### [facility] [address] [place] [address] 079[address]NAW [Catalytic activity/Vol]13 Int._Unit/LNormal5-43[facility] HospitalComment on above:Performed By: #### 2691033, 84977789, 5085204, 7309390 #### [facility] [address] [place] [address] 62[address]Pywqielhj [Mass/Vol]0.5 mg/dLNormal0.0-1.1FCincinnati VA Medical CenterComment on above:Performed By: #### 1550843, 70045530, 5325091, 1055423 #### [facility] [address] [place] [address] 37990Wjykamuv (S) [Mass/Vol]3.1 g/dLNormal1.4-4.0[facility] HospitalComment on above:Performed By: #### 0465619, 83274334, 2263556, 7086494 #### [facility] [address] [place] [address] 29943Ykiiwjr [Mass/Vol]7.4 g/dLNormal6.0-7.8[facility] HospitalComment on above:Performed By: #### 9709469, 39014156, 0917922, 8227732 #### [facility] [address] [place] [address]Beinmxc for Treatmenton 40-37-2469Ukeaotn for Treatment [id number]#1.00TIFFNormLakeHealth Beachwood Medical CenterLipid Panelon 03-80-5218Yslnsbbcnkr [Mass/Vol]206 mg/tLGjur646-066HqnttsPike Community HospitalComment on above:Performed By: #### 1585058, 76222717, 0319740, 2354970 #### [facility] [address], [place] [address]Rtyxqtavvml in HDL [Mass/Vol]58 mg/dLInvalid Interpretation CodePike Community HospitalComment on above:Result Comment: '>= 60 LOW RISK' '<= 40 HIGH RISK'Performed By: #### 0116890, 37490380, 8458175, 4634043 #### [facility] [address], [place] [address]Lbbcanesceu in LDL [Mass/Vol]150 mg/dLHigh<=129P[facility] Community HospitalComment on above:Performed By: #### 8009865, 43770294, 4210677, 1590048 #### [facility] [address], [place] [address]Illzerhgfcf in VLDL [Mass/Vol]16 mg/dLNormal7-40[facility] HospitalComment on above:Performed By: #### 2242056, 00480264, 3722136, 1822819 #### [facility] [address], [place] [address]Mwahgcxnydgk [Mass/Vol]79 mg/dLNormal<=149P[facility] Community HospitalComment on above:Performed By: #### 1177358, 13938989, 8334652, 5666539 #### [facility] [address], [place] [address]Hhbattmcf Orderon 31-91-3211Dhupdzmxj Order [id number]#1.00TIFFRiverside Methodist HospitaleGFRon 68-95-9532hZKA677 mL/min/1.73 n6Dofvdu>=59P[facility] HospitalComment on above:Order Comment: Order added by Discern Expert.Performed By: #### 2662750, 28883004, 5517615, 5937778 #### [facility] [address] [place], [place] [address]EPX With Platelet and Differentialon 68-37-4631Gltsvduhs (Bld) [#/Vol]0.1 10*3/uLNormal0.0-0.2MParkview Pueblo West HospitalComment on above: Performed By: #### CBCWD #### [facility] [address] [place] [address] Kvqszcuqz/100 WBC (Bld)0.7 %[facility] Comment on above:Performed By: #### CBCWD #### [facility] [address] [place] [address] Jprikjiegqp (Bld) [#/Vol]0.1 10*3/uLNormal0.0-0.7[facility] HealthComment on above:Performed By: #### CBCWD #### [facility] [address] [place] [address] Pquuzlpvsyo/100 WBC (Bld)1.0 %[facility] Comment on above:Performed By: #### CBCWD #### [facility] [address] [place] [address] Fzaqqpluamb distribution width (RBC) [Ratio]13.5 %Lnnpxl35.5-14.5 [facility] HealthComment on above:Performed By: #### CBCWD #### [facility] [address] [place] [address] Nvcmiiowmt (Bld) [Volume fraction]44.1 %Ambzpq63.0-47.0[facility] HealthComment on above:Performed By: #### CBCWD #### [facility] [address] [place] [address] Iverpwzwpz (Bld) [Mass/Vol]14.9 g/jVKmofzg00.0-16.0[facility] HealthComment on above:Performed By: #### CBCWD #### [facility] [address] [place] [address] Jsaukmtfvmb (Bld) [#/Vol]2.3 10*3/uLNormal1.0-4.8[facility] HealthComment on above:Performed By: #### CBCWD #### [facility] [address] [place] [address] Xqzeneeyycf/100 WBC (Bld)28.7 %[facility] Comment on above:Performed By: #### CBCWD #### [facility] [address] [place] [address] IGR (RBC) [Entitic mass]28.4 iiLlgawl43.0-31.3MParkview Pueblo West HospitalComment on above:Performed By: #### CBCWD #### [facility] [address] [place] [address] BXFF16.8 %Hdhahb49.0-37.0[facility] HealthComment on above:Performed By: #### CBCWD #### [facility] [address] [place] [address] XVU (RBC) [Entitic vol]84.2 iACexham46.4-94.8[facility] HealthComment on above:Performed By: #### CBCWD #### [facility] [address] [place] [address] Pdsuhoabk (Bld) [#/Vol]0.5 10*3/uLNormal0.2-0.8[facility] HealthComment on above:Performed By: #### CBCWD #### [facility] [address] [place] [address] Jxwfqcosj/100 WBC (Bld)6.8 %[facility] Comment on above:Performed By: #### CBCWD #### [facility] [address] [place] [address] Jyknckfeznr (Bld) [#/Vol]5.0 10*3/uLNormal1.4-6.5[facility]al HealthComment on above:Performed By: #### CBCWD #### [facility] [address] [place] [address] Yshvuuknwdt/100 WBC (Bld)62.8 %NormalEating Recovery Center Behavioral Health Comment on above:Performed By: #### CBCWD #### [facility] [address] [place] [address] Kipjphlbm (Bld) [#/Vol]271 10*3/jUMmpvgn792-476IoabiEating Recovery Center Behavioral HealthComment on above:Performed By: #### CBCWD #### [facility] [address] [place] [address] IAP (Bld) [#/Vol]5.23 10*6/uLNormal4.20-5.40[facility] HealthComment on above:Performed By: #### CBCWD #### [facility] [address] [place] [address] JAT (Bld) [#/Vol]7.9 10*3/uLNormal4.8-10.8[facility] Behavioral HealthComment on above:Performed By: #### CBCWD #### [facility] [address] [place] [address] Aqpupugyzuhhz Metabolic Panelon 49-06-6406Belgxjo [Mass/Vol]4.3 g/dL Normal3.5-4.6MParkview Pueblo West HospitalComment on above:Performed By: #### CMP #### [facility] [address] [place] [address] AVQ [Catalytic activity/Vol]72 U/VCardyt33-445TzixzEating Recovery Center Behavioral HealthComment on above:Performed By: #### CMP #### [facility] [address] [place] [address] YLC [Catalytic activity/Vol]15 U/LNormal0-33[facility]al HealthComment on above:Performed By: #### CMP #### [facility] [address] [place] [address] Eanej gap [Moles/Vol]12 mmol/LNormal9-15[facility]al HealthComment on above:Performed By: #### CMP #### [facility] [address] [place] [address] UMT [Catalytic activity/Vol]19 U/LNormal0-35[facility] HealthComment on above:Performed By: #### CMP #### [facility] [address] [place] [address] Awtvwqnjt [Mass/Vol]0.3 mg/dLNormal0.2-0.7[facility]al HealthComment on above:Performed By: #### CMP #### [facility] [address] [place] [address] Qyciyen [Mass/Vol]9.3 mg/dLNormal8.5-9.9[facility] HealthComment on above:Performed By: #### CMP #### [facility] [address] [place] [address] Gpzecoid [Moles/Vol]104 mmol/DIuvphe92-143SkngbEating Recovery Center Behavioral HealthComment on above:Performed By: #### CMP #### [facility] [address] [place] [address] TC4 [Moles/Vol]26 mmol/TUmpfwy26-51CoklcEating Recovery Center Behavioral Health Comment on above:Performed By: #### CMP #### [facility] [address] [place] [address] Vfwzluxpcv [Mass/Vol]0.73 mg/dLNormal0.50-0.90[facility] HealthComment on above:Performed By: #### CMP #### [facility] [address] [place] [address] YQK>60.0Normal>60[facility] Behavioral HealthComment on above: Result Comment: Pediatric calculator link https://www.kidney.org/professionals/kdoqi/gfr_calculatorped Effective Jun 19, 2022 [...] or following therapy that affects renal tubular secretion.Performed By: #### CMP #### [facility] [address] [place] [address] Lxvdctbp (S) [Mass/Vol]2.8 g/dLNormal2.3-3.5[facility]al HealthComment on above:Performed By: #### CMP #### [facility] [address] [place] [address] Rjeareu [Mass/Vol]90 mg/hLJbhyie49-33BhsxvParkview Pueblo West Hospital Comment on above:Performed By: #### CMP #### [facility] [address] [place] [address] Tvscayuxg [Moles/Vol]4.2 mmol/LNormal3.4-4.9[facility] HealthComment on above:Performed By: #### CMP #### [facility] [address] [place] [address] Rzgmzmc [Mass/Vol]7.1 g/dLNormal6.3-8.0[facility] Comment on above:Performed By: #### CMP #### [facility] [address] [place] [address] Fjfqps [Moles/Vol]142 mmol/BJielms592-483SenpuEating Recovery Center Behavioral HealthComment on above:Performed By: #### CMP #### [facility] [address] [place] [address] Xzwp nitrogen [Mass/Vol]12 mg/dLNormal6-20[facility] HealthComment on above:Performed By: #### CMP #### [facility] [address] [facility] [address] Mgasq Panelon 04-93-7852Snnyznwmqlf [Mass/Vol]221 mg/dLCritically high0-199[facility] Behavioral HealthComment on above:Result Comment: ATP III Cholesterol Classification is Borderline High.Performed By: #### LIPID #### [facility] [address] [facility] [address] Eqzwibgokrh in HDL [Mass/Vol]51 mg/cLBgieho36-67NxtbiEating Recovery Center Behavioral HealthComment on above:Result Comment: ATP III HDL Cholesterol Classification is Desirable. Expected Values: Males: >55 = No Risk 35-55 = Moderate Risk <35 = High Risk Females: >65 = No Risk 45-65 = Moderate Risk <45 = High Risk NCEP Guidelines: Third Report January 2001 >59 = negative risk factor for CHD <40 = major risk factor for CHDPerformed By: #### LIPID #### [facility] [address] [facility] [address] Wuayxcqqvxo in LDL [Mass/Vol]149 mg/dLCritically high0-129[facility]al HealthComment on above:Result Comment: ATT III Classification is Borderline High.Performed By: #### LIPID #### [facility] [address] [facility] [address] Ljujfhxnxuwu [Mass/Vol]105 mg/dLNormal0-150[facility] Behavioral HealthComment on above:Result Comment: ATP III Triglycerides Classification is Normal.Performed By: #### LIPID #### [facility] [address] [facility] [address] NASJor 21-13-9166PNVNKbagieteq (OPHTNR) JASON WHITE ([id number]) 1990 F Date Time Provider Department 10/18/21 [...] Assessed Reason for Visit: Contact Lens Question [0427] Prescriptions as of 10/18/2021 - triamcinolone acetonide [...] 08/08/2006 Encounter Status:Closed by JENNIE GAMEZ on 10/18/21[facility] ([facility]19) RT-PCRon 56-40-0484HTBO-CoV-2 (COVID-19) RNA OLGA+probe Ql (Unsp spec)PositiveAbnoSelect Medical Cleveland Clinic Rehabilitation Hospital, BeachwoodComment on above:Order Comment: EmployeeResult Comment: POSITIVE: SARS-CoV-2 RNA was detected - Interpretation: A [...] using the Gianfranco SARS-CoV-2 assay on the [employer] Fluency0 System. - Comment: This test has received FDA Emergency Use Authorization (EUA) and has been verified by [facility]. 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 - Documentation and care coordination: -- minutes.NormalUniversity Hospitals Elyria Medical CenterQuantiferon TB Goldon 30-25-3805Nnspiwshsxm TB GoldIndeterminateNormal NegativeUniversity Hospitals Elyria Medical CenterComment on above:Result Comment: An Indeterminate result indicates that the positive control value [...] to Dr. Alexander Jaimes or Testing Performed: [employer]. [address] [place] [id number] By: #### QUTBG #### [address] [address] MTZBK, LUMBOSACRAL; MIN 4 VIEWSon 52-67-1529QIFJO, LUMBOSACRAL; MIN 4 VIEWSMRN: [id number] Name: JASON WHITE STUDY:SPINE, LUMBOSACRAL; MIN 4 VIEWS; 10/08/2017 10:50 am INDICATION:Signs/Symptoms: Lower lumbar tenderness. COMPARISON:None. ORDERING CLINICIAN:GIOVANY JOSUE FINDINGS:Alignment: AP alignment is maintained Disc levels: Maintained Bony structures: The bony structures are intact there however doesappear to be partial lumbarlumbarization of the S1 vertebral body,presumed for nomenclature. Other findings: None significant IMPRESSION:Unremarkable exam.Electronically signed by: KIN DELGADO MDTracy Medical Center Vital Signs Date TimeVital SignValuePerforming FmkkifiubOnxlanio13-88-0841 08:35-0400Body fcalxw413.15 kgCorey Eliane DO Work Phone: [facility] CenterMyikdpmwgx17-89-0131 08:35-0400Diastolic blood asyvfqxa64 mm[Hg]Pee Eliane DO Work Phone: [facility] CenterJiiovxwibc57-44-4158 08:35-0400Systolic blood mm[Hg]Pee Eliane DO Work Phone: [facility] CenterTsaknekwab26-13-4047 09:16-0400Body jrawls24.56 kgCorey Eliane DO Work Phone: [facility] CenterQkkodplzxs41-15-7442 09:16-0400Diastolic blood ebnkzzgc39 mm[Hg]Pee Eliane DO Work Phone: [facility] CenterAilufveigk68-79-6933 09:16-0400Systolic blood qdhibean177 mm[Hg]Pee Eliane DO Work Phone: [phone] [place], [place] [address]Uncewcpaaz19-41-0516 10:11-0400Body aluxng32.79 kgCorey Eliane DO Work Phone: [facility] CenterSwnwyrdqvq72-33-5257 10:11-0400Diastolic blood phgcmduv34 mm[Hg]Pee Eliane DO Work Phone: 1([phone])125-[address] [place], [place] [address]Hglgngvjxz10-88-8860 10:11-0400Systolic blood fiqgkwev498 mm[Hg]Pee Eliane DO Work Phone: [facility] CenterVfhufumwvt26-24-4554 10:39-0400Body .97 [facility]20[facility] 10:39-0400Diastolic blood cfvvtdeq15 mm[Hg] [facility]07-11-2025 10:39-0400Systolic blood jpotdnrl554 mm[Hg] [facility]02-18-2025 08:39-0500Body ahygoi09.88 kgCorey Eliane DO Work Phone: [facility] CenterVsvceeoqqu40-77-2356 08:39-0500Diastolic blood wdyodpxc20 mm[Hg]Pee Eliane DO Work Phone: [facility] CenterGvnasygasb65-24-6367 08:39-0500Systolic blood ecappxem253 mm[Hg]Pee Eliane DO Work Phone: [facility] Healthcare Encounters Encounter DateEncounter TypeCare ProviderFacilityStart: 07-07-2025 End: 01-65-3583Tnzjop flowsheetCorey Eliane DO Work Phone: [facility] [place] [facility]BGYNStart: 07-07-2025 End: 19-95-5162Awlerz flowsheetCorey Eliane DO Work Phone: [facility] [facility]BGYNStart: 07-07-2025 End: 30-06-7468Pfbsylbf flow sheetCorey Eliane DO Work Phone: [facility] [place] OBGYNComment on above:23 weeks gestation of ([facility]); Second trimester ([facility]); Diabetes mellitus screening; 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[facility]); Advanced maternal age, primigravida, antepartum ([facility])Start: 07-07-2025 End: 21-02-7059luvywnijnzBSBRF FAZIONot AvailableStart: 06-24-2025 End: 37-81-6597xmnghpcaooXFBTZK LEANNFacility:FT FM BellevueStart: 06-16-2025 End: 79-43-8582Utqxqhwbku hospital visit by physicianMoisés Flores Obgynimg Ultrasound [facility] Fertility Center [facility] on above:Encounter for supervision of normal , unspecified, unspecified trimester ([facility])Start: 06-15-2025 End: 18-15-9600Rruledbwv Result EncounterCorey Eliane DO Work Phone: [facility] External Department UnsolicitedStart: 06-15-2025 End: 05-41-7602Ghukfmwpo Result EncounterCorey Eliane DO Work Phone: noMS External Department UnsolicitedStart: 06-09-2025 End: 61-28-8634Fgvzmq flowsheetCorey Eliane DO Work Phone: [facility] [facility]BGYNStart: 06-09-2025 End: 74-43-4315Oxihby flowsheetCorey Eliane DO Work Phone: [facility] [place] [facility]BGYNStart: 06-09-2025 End: 79-78-6048Yybkgnxc flow sheetCorey Eliane DO Work Phone: [facility] OBGYNComment on above:Second trimester ([facility] 19 weeks gestation of ([facility]); NauseaStart: 06-09-2025 End: 21-99-4856bekzvficepFYKHG FAZIONot AvailableStart: 06-03-2025 End: 21-91-5787jmkymcpvbpCGIFQK A LEHMANNFacility:FT FM BellevueStart: 06-01-2025 End: 12-06-9265qeszhyppfpNVJWQU A LEHMANNFacility:FTMCStart: 05-20-2025 End: 61-58-0255wnqergiazvLQKZSF A LEHMANNFacility:FT FM BellevueStart: 05-19-2025 End: 15-80-0939Kmwwlguwr Result EncounterCorey Eliane DO Work Phone: [facility] External Department UnsolicitedStart: 05-19-2025 End: 97-67-1398Wobdmvhht Result EncounterCorey Eliane DO Work Phone: [facility] External Department UnsolicitedStart: 05-12-2025 End: 93-48-4255Smzyxb flowsheetCorey Eliane DO Work Phone: [facility]BGYNStart: 05-12-2025 End: 95-15-4570Nspvbh flowsheetCorey Eliane DO Work Phone: [facility]BGYNStart: 05-12-2025 End: 89-35-6075Ggibdrozj Result EncounterCorey Eliane DO Work Phone: noMS External Department UnsolicitedStart: 05-12-2025 End: 69-56-6279Poczgjyo Result EncounterCorey Eliane DO Work Phone: noms External Department UnsolicitedStart: 05-12-2025 End: 97-92-5353Dcuerly encounter procedureCorey Eliane DO Work Phone: [facility] HealthcareStart: 05-12-2025 End: 28-38-6303Gjkzkapb preventive med est patient 18-39 yrsCorey Eliane DO Work Phone: [facility] OBGYNComment on above:Screening, , for anatomic survey ([facility]); Well woman exam with routine gynecological exam; Second trimester ([facility]); 15 weeks gestation of ([facility]); STD exposure; NauseaStart: 05-12-2025 End: 65-45-6089mxzankbkyoBHOIZ FAZIONot AvailableStart: 05-05-2025 End: 70-69-9380Siqkbfbdn Result EncounterCorey Eliane DO Work Phone: [facility] External Department UnsolicitedStart: 05-05-2025 End: 04-02-5131Eweuieoxd Result EncounterCorey Eliane DO Work Phone: NOXU External Department UnsolicitedStart: 04-21-2025 End: 50-15-6188Ahpxzz flowsheetCorey Eliane DO Work Phone: [facility] [place] OBGYNStart: 04-21-2025 End: 96-73-3025Utpxva flowsheetCorey Eliane DO Work Phone: [facility] [place] OBGYNStart: 04-21-2025 End: 79-29-7232Ftkcacrf flow sheetCorey Eliane DO Work Phone: [facility] OBGYNComment on above:First trimester ([facility]); 13 weeks gestation of ([facility])Start: 04-21-2025 End: 87-70-7157dnjrovtypgUXXSA FAZIONot AvailableStart: 04-07-2025 End: 60-72-1719bdvqiybsizSCNLK FAZIONot AvailableStart: 03-27-2025 End: 33-53-1731Cjqjbk outpatient visit 5 minutesFazio Nurse [facility] Bcp ObNOMS BCP OBComment on above:GA: 2j4lXxdua: 03-27-2025 End: 11-29-4075emlvxhxzfiVCUAE FAZIONot AvailableStart: 02-27-2025 End: 75-53-1543Tsmvzknxe Result EncounterCorey Eliane DO Work Phone: noms External Department UnsolicitedStart: 02-27-2025 End: 66-47-9339Zlrkpwlpq Result EncounterCorey Eliane DO Work Phone: [facility] External Department UnsolicitedStart: 02-25-2025 End: 48-56-2921Yrivbrkmb Result EncounterCorey Eliane DO Work Phone: [facility] External Department UnsolicitedStart: 02-25-2025 End: 63-76-4068Uxyhtewem Result EncounterCorey Eliane DO Work Phone: [facility] External Department UnsolicitedStart: 02-14-2025 End: 62-01-1898Yfgnnbpyo Result EncounterCorey Eliane DO Work Phone: [facility] External Department UnsolicitedStart: 02-14-2025 End: 69-10-9333Tyjthmexi Result EncounterCorey Eliane DO Work Phone: [facility] External Department UnsolicitedStart: 01-20-2025 End: 09-40-7798rnmbctzhciTfuao R FAZIOFacility:FTMCStart: 12-22-2024 End: 48-76-9264vqugqaprxvHtlmb R FAZIOFacility:FTMCStart: 12-22-2024 End: 33-41-0029Jrt Drop offCorey R ELIANE [facility] Start: 11-24-2024 End: 94-48-4364Xty Drop offJodi L Daisha [facility] Start: 11-24-2024 End: 95-09-6794fhppapajvrBuvj L SchwabFacility:FTMCStart: 11-11-2024 End: 53-66-0418knqsbrytcvQuvtp R FAZIOFacility:FTMCStart: 11-11-2024 End: 85-47-6597Uucbrih encounter procedureCorey R ELIANE [facility] Start: 11-05-2024 End: 68-49-0571Oai Drop offCorey R ELIANE [facility] Start: 11-05-2024 End: 78-31-3401onrrahxsazKHYQYQ M MADDOCKFacility:FT FM BellevueStart: 11-04-2024 End: 49-96-6442Gykoqa flowsheetCorey Eliane DO Work Phone: [facility] BCP OBStart: 11-04-2024 End: 29-21-5627Ypqlxu flowsheetCorey Eliane DO Work Phone: [facility] BCP OBStart: 11-04-2024 End: 55-24-9701Ngskmu outpatient visit 15 minutesCorey Eliane DO Work Phone: [facility] BCP OBComment on above:Encounter for infertility; PCOS (polycystic ovarian syndrome); Abnormal uterine bleeding (AUB); Hormone disorderStart: 11-04-2024 End: 86-88-6389admilkyqlpBUWIP FAZIONot AvailableStart: 07-25-2024 End: 85-02-0595muiluyuzwnAUVTAT M MADDOCKFacility:FT FM BellevueStart: 07-02-2024 End: 69-39-5385dhhojgzbfwKTJBBT M MADDOCKFacility:[facility] FM BellevueStart: 07-02-2024 End: 55-52-7360drpidauaskLLY ASHISH A LEHMANNFacility:FT FM BellevueStart: 05-01-2024 End: 63-56-2126vkqcylfeesSCF ASHISH A LEHMANNFacility:FT FM BellevueStart: 04-22-2024 End: 24-67-6130xjawxzgwsfJBD RAMEYNot AvailableStart: 03-25-2024 End: 32-96-6260tdqgikdjzvBvnw L SchwabFacility:FT BellevueStart: 01-12-2024 End: 08-12-9392lakdratmdsHFUKIG M TUYETCKFacility:FTMCStart: 06-08-2022 End: 76-59-9114vmokhmptjwCVBCRD E WILSONFacility:[facility]ertart: 06-08-2022 End: 75-82-5039Zbonfqc encounter procedureStedavid Mccarthy MD Work Phone: OphthalmologyComment on above:Myopic astigmatism of both eyes (Primary Dx); Refractive errorStart: 10-12-2021 End: 77-56-0148rjscflusxwJCRY YARHAMFacility:[facility]ertart: 02-26-9047Aghdan OnlyAbby Yarham OD Work Phone: OphthalmologyStart: 74-60-4341BjurotinmgVpvoead Jose M PipitoneFacility:[facility] Procedures DateProcedureProcedure DetailPerforming ClinicianStart: 36-32-4761Utuky dip stick/tablet rgnt non-auto w/o micrscpCorey Eliane DO Work Phone: Start: 43-54-1103Ic preg uterus w/detail fabrice 1st gestationCorey Randolph Eliane DO Work Phone: Start: 88-91-7158Vj preg uterus w/detail fabrice 1st gestationCorey Eliane DO Work Phone: Start: 24-58-4445Rpyrw dip stick/tablet rgnt non-auto w/o micrscpAmy Kendra NEW Work Phone: Start: 21-50-9376OHP, SERUM, OPEN SPINA BIFIDACorey Eliane DO Work Phone: Start: 66-10-0691TQRYNUCNI VAGINITIS (HTRX)Pee Eliane DO Work Phone: Start: 41-55-0862Ckyus dip stick/tablet rgnt non-auto w/o micrscpCorey Eliane DO Work Phone: Start: 83-71-7245SRA,APTIMA HPV,AGE GDLNCorey Eliane DO Work Phone: Start: 53-22-4766Oqbwyysidgw observation [Identifier] in Cervix by Cyto stainCorey Eliane DO Work Phone: Start: 56-76-1650WXN TESTCorey Eliane DO Work Phone: Start: 90-96-2796Ejgfd dip stick/tablet rgnt non-auto w/o micrscpCorey Eliane DO Work Phone: Start: 92-47-1128HJB PREG QUANT HCGCorey Eliane DO Work Phone: Start: 43-58-0356KNP PREG QUANT HCGCorey Eliane DO Work Phone: Start: 10-34-2760WAA PROGESTERONECorey Eliane DO Work Phone: Start: 30-24-9324Eagwluodsjx observation [Identifier] in Cervix by Cyto stainCorey Eliane DO Work Phone: Start: 99-17-4901Zcij cerv/vag auto thin layer prep mnl screenAmy Kendra NEW Work Phone: cyst (disorder)Pee [employer] Insertion of intrauterine contraceptive deviceCorey ELIANE Plan of Treatment DateCare ActivityDetailAuthorStart: 13-76-7064Aimcxm Vaccines (1 of 2)Zoster Vaccines (1 of 2)[facility]Strichfield: 68-38-9765TKkS/Tdap/Td Vaccines (3 - Td or Tdap)DTaP/Tdap/Td Vaccines (3 - Td or Tdap)[facility]St[facility]: 03-16-0329Pefxuxuwr for malignant neoplasm of cervixNOMS HealthcareStart: 83-50-0570Dudmmyssb for malignant neoplasm of cervix Pap SmearNOMS HealthcareStart: 08-25-2025 End: 23-46-2362Iwcwgmt encounter pcatltcyg13/09/2025 7:45 AM EST Appointment [facility] [address] [place] [phone] [facility]Start: 08-04-2025 End: 08-50-0350Szehiel encounter nykahdufl69/18/2025 8:30 AM EST Routine [facility] [address] [place], [id number] Pee Del Rio, [address] [place] [address] [facility]BGYNStart: 08-04-2025 End: 32-14-6495Nmzaawbsujyx / ancillary services zuobtbtzem50/18/2025 8:00 AM EST Ancillary Procedure [facility] [address] [place] [id number] [facility]BGYNStart: 07-07-2025 End: 44-49-0388HQN panel - Blood by Automated countCBC Lab Routine Diabetes mellitus screening Expected: 07/07/2025 (Approximate), Expires: 07/07/2026[facility] Work Phone: comment on above:Expected: 07/07/2025 (Approximate), Expires: 07/07/2026Start: 07-07-2025 End: 94-89-7617Aeywbjbjvtz of glucose 1 hour after glucose challenge for glucose tolerance testGlucose tolerance, 1 hour Lab Routine Diabetes mellitus screening Expected: 07/07/2025 (Approximate), Expires: 07/07/2026[facility] HealthcareComment on above:Expected: 07/07/2025 (Approximate), Expires: 07/07/2026Start: 07-07-2025 End: 75-05-9632Nvmmmee encounter procedureNOMS Og OBGYNComment on above: ArrivedStart: 06-09-2025 End: 33-86-5986Rqfnjfh encounter procedureNOMS Og OBGYNComment on above: ArrivedStart: 69-38-2063PKIAV-19 Vaccine ( season)COVID-19 Vaccine ( season)[facility] CampusStart: 81-74-0718Auwxrmbno vaccinationNOMS HealthcareStart: 05-12-2025 End: 65-11-2019Sghdq fetoprotein, maternalAlpha fetoprotein, maternal Lab Routine 15 weeks gestation of ([facility]) Expected: 05/12/2025 (Approximate), Expires: 07/12/2025[facility] HealthcareComment on above:Expected: 05/12/2025 (Approximate), Expires: 07/12/2025Start: 05-12-2025 End: 37-60-6223ST for pregnancyUS OB 14+ weeks anatomy scan Imaging Routine Screening, , for anatomic survey ([facility]) Expected: 05/12/2025, Expires: 08/12/2025[facility] HealthcareComment on above:Expected: 05/12/2025, Expires: 08/12/2025Start: 05-12-2025 End: 22-83-8677Lqrmtkg encounter procedureNOMS Og OBGYNComment on above: ArrivedStart: 04-28-2025 End: 29-66-2765Kxhxrmd encounter procedureNOMS BCP OBStart: 04-21-2025 End: 53-19-9481Lekxxzq encounter procedureNOMS BCP OBComment on above:Arrived Start: 04-07-2025 End: 69-74-8946Lsdguffckksx / ancillary services mnffaavzsi58/22/2025 9:30 AM EDT Ancillary Procedure [facility] [address] [place] [address] DKXE BCP OBStart: 03-27-2025 End: 56-50-6614UKF/RhABO/Rh Lab Routine Missed menses , unspecified gestational age ([facility]) Expected: 03/27/2025 (Approximate), Expires: 03/27/2026N[facility] HealthcareComment on above:Expected: 03/27/2025 (Approximate), Expires: 03/27/2026Start: 03-27-2025 End: 78-42-9834Nkkcc type and Indirect antibody screen panel - BloodType and screen Lab Routine Missed menses , unspecified gestational age ([facility]) Expected: 03/27/2025 (Approximate), Expires: 03/27/2026[facility] Work Phone: comment on above:Expected: 03/27/2025 (Approximate), Expires: 03/27/2026Start: 03-27-2025 End: 45-14-4770Hbzuk of abuse panel - Urine by Screen methodRapid drug screen, urine Lab Routine , unspecified gestational age ([facility]) Encounter for supervision of normal first in first trimester ([facility]) Expected: 03/27/2025 (Approximate), Expires: 03/27/2026[facility] HealthcareComment on above: Expected: 03/27/2025 (Approximate), Expires: 03/27/2026Start: 03-27-2025 End: 62-87-0485BA Pelvis transvaginalUS OB transvaginal Imaging Routine , unspecified gestational age ([facility]) Encounter for supervision of normal first in first trimester ([facility]) Expected: 03/27/2025, Expires: 06/27/2025[facility] HealthcareComment on above:Expected: 03/27/2025, Expires: 06/27/2025Start: 03-10-2025 End: 36-44-6165Gtlnvsp encounter zzogikjrd60/24/2025 8:40 AM EDT Office Visit [facility] [address] [place] [id number] Pee Del Rio, DO [address] [place] [address] [facility] BCP OBStart: 11-04-2024 End: 15-53-0758Ttwpuyqwevvvi hormone (AMH)Antimullerian hormone (AMH) Lab Routine PCOS (polycystic ovarian syndrome) Abnormal uterine bleeding (AUB) Expected: 11/04/2024 (Approximate), Expires: 11/04/2025[facility] HealthcareComment on above:Expected: 11/04/2024 (Approximate), Expires: 11/04/2025Start: 11-04-2024 End: 26-37-0677EEMPDJVS Lab Routine PCOS (polycystic ovarian syndrome) Expected: 11/04/2024 (Approximate), Expires: 11/04/2025[facility] HealthcareComment on above: Expected: 11/04/2024 (Approximate), Expires: 11/04/2025Start: 11-04-2024 End: 06-63-5216LI PelvisUS Pelvis w/ TV Imaging Routine PCOS (polycystic ovarian syndrome) Expected: 11/04/2024, Expires: 11/04/2025[facility] HealthcareComment on above:Expected: 11/04/2024, Expires: 11/04/2025Start: 11-04-2024 End: 75-98-2701Nrojffr encounter fypojjhml87/18/2025 8:40 AM EST Office [facility] [address] [place] [phone] Pee Del Rio, DO [address] [place] [address] ArrivedNOFREMONT [facility] OBComment on above:ArrivedStart: 42-68-6239Hmvwdhois vaccinationInfluenza Vaccine (#1)[facility] HealthcareStart: 69-55-0623Tyvidtvsi vaccinationINFLUENZA (#1)[facility]21 Influenza vaccinationINFLUENZA (#1)[facility]: 41-36-5667ZSC TESTING HPV TESTINGMemorial Hospitaltart: 17-07-7368LCX Vaccines (1 - 3-dose standard series)HPV Vaccines (1 - 3-dose standard series)[facility]St[facility]: 72-08-5835PMM TESTINGPAP TESTINGMemorial Hospitaltart: 21-69-8313Ppapgwlwh for malignant neoplasm of cervixUnAshtabula [facility] Center: 94-93-0254Dsfvv microalbumin profileDTAP,TDAP,TD (1 - Tdap) [facility]: 51-76-4266Lpdqniyl mellitus screeningDiabetes Screening [facility] CampusStrichfield: 44-13-0709Ncvjotqud C screeningHepatitis C ScreeningMansfield Hospital: 26-42-5119OMZ SCREENINGHIV SCREENINGMemorial Hospitaltart: 11-42-5012Soxpx depression screening assessment DEPRESSION SCREENINGMemorial Hospitaltart: 36-12-8864Auyzzdlel B Vaccines (2 of 3 - 3-dose series)Hepatitis B Vaccines (2 of 3 - 3-dose series)[facility]: 57-95-8268VDTHB-19 VACCINE (1)COVID-19 VACCINE (1) [facility]: 55-01-1333LGBJCZQAG B (1 of 3 - 3-dose series)HEPATITIS B (1 of 3 - 3-dose series)[facility]: 08-93-1396YKG screeningHIV ScreeningMansfield Hospital: 72-76-2947Izfbn panelLipid PanelMansfield Hospital: 50-68-0601Cwcbxl Adult Physical Yearly Adult PhysicalUnAccess Hospital DaytonBacteria identified in Urine by CultureUrine culture Microbiology Routine Missed menses Ordered: 03/27/2025[facility] HealthcareComment on above:Ordered: 03/27/2025BC W Auto Differential panel - BloodCBC and differential Lab Routine PCOS (polycystic ovarian syndrome) Ordered: 11/04/2024[facility] HealthcareComment on above:Ordered: 11/04/2024BC W Auto Differential panel - BloodCBC and differential Lab Routine Missed menses , unspecified gestational age ([facility]) Ordered: 03/27/2025[facility] HealthcareComment on above:Ordered: 03/27/2025HLAMYDIA TRACHOMATIS (GENITO/STI)CHLAMYDIA TRACHOMATIS (GENITO/STI) Lab Routine STD exposure Ordered: 05/12/2025[facility] HealthcareComment on above:Ordered: 05/12/2025 Cytology Cervical or vaginal smear or scraping studyPap Smear Pathology and Cytology Routine Well woman exam with routine gynecological exam Ordered: [facility] HealthcareComment on above:Ordered: 05/12/2025DHEA-sulfateDHEA- sulfate Lab Routine PCOS (polycystic ovarian syndrome) Ordered: 11/04/2024[facility] HealthcareComment on above:Ordered: 11/04/2024Follicle stimulating hormone Follicle stimulating hormone Lab Routine PCOS (polycystic ovarian syndrome) Ordered: 11/04/2024[facility] HealthcareComment on above:Ordered: 11/04/2024hCG, quantitative, pregnancyhCG, quantitative, Lab Routine PCOS (polycystic ovarian syndrome) Ordered: 11/04/2024[facility] [employer] Work Phone: comment on above:Ordered: 11/04/2024Hemoglobin A1c/Hemoglobin.total in BloodHemoglobin A1c Lab Routine Abnormal uterine bleeding (AUB) Ordered: 11/04/2024[facility] HealthcareComment on above:Ordered: 11/04/2024Hemoglobin A1c/Hemoglobin.total in BloodHemoglobin A1c Lab Routine Missed menses , unspecified gestational age ([facility]) Ordered: 0 03/27/2025[facility] CenterComment on above:Ordered: 03/27/2025Hepatitis B virus surface Ag [Presence] in Serum or Plasma by ImmunoassayHepatitis B surface antigen Lab Routine Missed menses , unspecified gestational age ([facility]) Ordered: 03/27/2025[facility] CenterComment on above:Ordered: 03/27/2025 Hepatitis C virus Ab [Presence] in Serum or Plasma by ImmunoassayHepatitis C antibody Lab Routine Missed menses , unspecified gestational age ([facility]) Ordered: 03/27/2025[facility] CenterComment on above:Ordered: 03/27/2025 HIV-1/HIV-2 antigen/antibody combination immunoassayHIV-1 and HIV-2 antibodies Lab Routine Missed menses , unspecified gestational age ([facility]) Ordered[facility]25[facility]:Ordered: 03/27/2025Human papilloma virus DNA [Presence] in Unspecified specimen by Probe with amplificationHPV DNA probe, amplified Microbiology Routine Well woman exam with routine gynecological exam Ordered: [facility]12/2025[facility] HealthcareComment on above: Ordered: 05/12/2025Luteinizing hormoneLuteinizing hormone Lab Routine PCOS (polycystic ovarian syndrome) Ordered: 11/04/2024[facility] HealthcareComment on above:Ordered: 11/04/2024Neisseria gonorrhoeae DNA [Presence] in Unspecified specimen by OLGA with probe detectionNeisseria gonorrhea DNA probe, direct Lab Routine STD exposure Ordered: 05/12/2025[facility] HealthcareComment on above:Ordered: 05/12/2025ProgesteroneProgesterone Lab Routine PCOS (polycystic ovarian syndrome) Hormone disorder Ordered: 11/04/2024[facility] HealthcareComment on above: Ordered: 11/04/2024Reagin Ab [Presence] in Serum by RPRRPR Lab Routine Missed menses , unspecified gestational age ([facility]) Ordered: 03/27/2025[facility] HealthcareComment on above:Ordered: 03/27/2025Rubella antibody, IgGRubella antibody, IgG Lab Routine Missed menses , unspecified gestational age ([facility]) Ordered: 03/27/2025[facility] HealthcareComment on above:Ordered: 03/27/2025 SURESWAB(R) ADVANCED VAGINITIS PLUS, TMASURESWAB(R) ADVANCED VAGINITIS PLUS, TMA Pathology and Cytology Routine STD exposure Ordered: 05/12/2025[facility] Healthcare Work Phone: comment on above:Ordered: 05/12/2025Thyrotropin [Units/volume] in Serum or PlasmaTSH Lab Routine PCOS (polycystic ovarian syndrome) Ordered: 11/04/2024[facility] HealthcareComment on above:Ordered: 11/04/2024 Thyroxine (T4) free [Mass/volume] in Serum or PlasmaT4, free Lab Routine PCOS (polycystic ovarian syndrome) Ordered: 11/04/2024[facility] HealthcareComment on above:Ordered: 11/04/2024 End: 10-68-7151UL for pregnancyUS OB follow up transabdominal approach Imaging Routine 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[facility]) Advanced maternal age, primigravida, antepartum ([facility]) every 4 weeks for 6 Occurrences starting 07/07/2025until 01/05/2026[facility] HealthcareComment on above:every 4 weeks for 6 Occurrences starting 07/07/2025 until 01/05/[facility] Immun[facility] Immunization DateImmunizationNotesCare NojtzdliJvbelgjz51-75-3704avsaaknwm virus vaccine, unspecified formulationCorey Eliane DO Work Phone: NOIL Fxjsqppnur86-68-2768mohjxdpvx, unspecified formulationCorey ELIANE 202-6258Sboumu-RzgseProvidence Hospital 78-02-2336dvfeymgab virus vaccine, unspecified formulationCorey Eliane DO Work Phone: [phone]-Ejcpt[address] [place] [address] Comment on above:Result Comment: 2024-05-01: VIS DATE: SARS-CoV-2 (COVID-19) mRNAMUL.ORD![id number] ELIANE 471-7831Rlmkcl-Mloia[address] [place] [address] 00-29-9772nuoluohgc virus vaccine, unspecified formulationCorey ELIANE 522-0745Jlnsjb-Czqbn[address] [place] [address] Comment on above:Result Comment: 2024-05-01: OMHO61-43-6466rttqqib toxoid, reduced diphtheria toxoid, and acellular pertussis vaccine, adsorbedCorey ELIANE [phone]-Ffjny[address] [place] [address] Comment on above:Result Comment: 2024-05-01: VIS DATE: influenza virus vaccine, unspecified formulationCorey ELIANE [phone]-Hrwio[address] [place] [address] 53-91-8361QJHR-CoV-2 (COVID-19) mRNA-1273 vaccineCorey ELIANE 565-0895Ppmecm-YjelfProvidence Hospital 38-28-3234wexxiumqy virus vaccine, unspecified formulationCorey ELIANE 221-0965Xsgaht-OgpysProvidence Hospital Comment on above:Result Comment: 2024-05-01: PHYA12-78-8279SANM-CyK-0 (COVID-19) mRNA BNT-162b2 vaxCorey ELIANE [phone]-Wzuib[address] [place] [address] Comment on above:Result Comment: 2024-05-01: [id number]-NtI-0 (COVID- 19) mRNA BNT-162b2 vaxCorey ELIANE 913-2338Omixtc-FamxfProvidence Hospital Comment on above:Result Comment: 2024-05-01: [id number]-BrK-1 (COVID- 19) mRNA-1273 vaccineCorey ELIANE 995-4090Akfrha-Eozdp[address] [place] [address] 47-73-6996AKKM-CoV-2 (COVID-19) mRNA-1273 vaccineCorey ELIANE 347-9116Xxnscb-SqbvhProvidence Hospital 85-03-9777ixwnhidqh virus vaccine, unspecified formulationCorey ELIANE 721-7457Xhwpki-Dfgam[address] [place] [address] 86-62-5353ubzfjlwzq virus vaccine, unspecified formulationCorey ELIANE 438-6507Jbsugk-ZrwlqProvidence Hospital 34-49-8717pfwplpnzm virus vaccine, unspecified formulationCorey ELIANE 680-2782Bjyfpv-QjzqqProvidence Hospital 30-47-7794kwipgqlze virus vaccine, unspecified formulationCorey ELIANE 024-5852Jqxvvs-YedfbProvidence Hospital 68-92-0829giyqezyxr virus vaccine, unspecified formulationCorey ELIANE 256-9339Dtnrxm-RljhyProvidence Hospital 61-37-5882ugagjni toxoid, reduced diphtheria toxoid, and acellular pertussis vaccine, adsorbedCorey ELIANE 641-3929Mpubbw-QleuaProvidence Hospital 80-28-2491jygsznw, mumps and rubella virus vaccineCorey ELIANE 129-0069Qhzlvj-RydypProvidence Hospital 17-16-4048qvvgygome B vaccine, pediatric or pediatric/adolescent dosageCorey ELIANE [phone]-FahqvProvidence Hospital Payers DatePayer CategoryPayerPolicy [id number] Care (Private)[employer] [id number] Health InsuranceMEDICAL MUTUAL [id number] MMO SUPERMED PLUS [id number] 2021-Present [phone] [address] [place] [address] [id number]. Unknown1.2.840.992086.1.13.159.2.7.3.848[id number] [id number] 2.16.840.1.874060.3.57[id number] 2.16.840.1.037284.3.57[id number] 2.16.840.1.694611.3.57[id number] 2.840.1.788996.3.57[id number] 2..840.1.336780.3.57[id number] 2.840.1.606383.3.57[id number] 2.0.1.396862.3.57[id number] 2.840.1.184058.3.57[id number] 2.0.1.413785.3.57[id number] 2.840.1.717921.3.57[id number] 2.0.1.054262.3.57[id number] 2.840.1.132577.3.57[id number] 2.0.1.829752.3.57[id number] 2.0.1.610788.3.57[id number] 2.840.1.618264.3.57[id number] 2.840.1.366360.3.579.2.52[id number] 2.16.840.1.892152.3.57[id number] 2.16.840.1.241860.3.57[id number] 2.16.840.1.900533.3.57[id number] 2.16.840.1.156318.3.579.2.404[id number] 2.16.840.1.653734.3.579.2.[id number] 2.16.840.1.344518.3.57[id number] 2..840.1.095862.3.57[id number] 2..0.1.558880.3.57[id number] 2..0.1.573469.3.57[id number] 2.16.840.1.44785[id number] Social History DateTypeDetailFacilityStart: 09-02-2012 End: 71-20-4237Irtzyos smoking status NHISNever smoked tobaccoBucyrus Community Hospital Start: 09-02-2012 End: 19-71-0258Dlfmiur intakeCurrent non-drinker of alcohol (finding)[facility] Hospitaltart: 22-00-7121Qfk Assigned At BirthFemaleCleveland ClinicExposure to SARS-CoV-2 (event)YesMemorial Hospitaltart: 01-27-6526Oyjhaab use and exposure Smokeless tobacco non-userBucyrus Community HospitalTobacancer [facility] smoking status NHISTobacco smoking consumption unknownNOIL HealthcareStart: 31-47-2297Dumcdi identity Identifies as female gender (finding)[facility] HealthcareStart: 80-44-1745Grwqtl orientationHeterosexual (finding)[facility] HealthcareStart: 01-27-2024 End: 49-72-2452Hmjxjzr smoking statusNeverBethesda [facility] Hospital Family Medicine BellevueSex Assigned At BirthFemalChildren's Hospital of Columbusexual OrientationMercy Health West Hospital Start: 98-28-4152IfiRxrucw (finding)[facility] Centertart: 31-52-4051GcydfbucjXWJN HealthcareStart: 89-38-9349Hms assigned at birthNot on [facility] Work Phone: Clinical Notes 10-12-2021 to 07-07-2025 Note Date & GjxmJmsdVbpzwrqi53-66-5152 History of Present illness Narrative* Arline Marcos, LEANNE - 07/07/2025 8:30 AM EDT Reason for Appointment: Patient ID: Jason Coronel [...] (polycystic ovarian syndrome) 02/24/2025 Positive urine test ([facility]) 02/24/2025 Resolved Ambulatory Problems Diagnosis Date [...] nursing note reviewed. Exam conducted with a diabetic educator present. Vitals: There is no height or weight on file to calculate BMI. BP: 120/80 Patient's last menstrual period was 01/25/2025. Assessment/Plan ICD-10-CM 1. 23 weeks gestation of ([facility]) Z3A.23 POCT urinalysis dipstick manually resulted 2. Second trimester ([facility]) Z34.92 POCT urinalysis dipstick manually resulted 3. Diabetes mellitus screening Z13.1 CBC Glucose tolerance, 1 hour CBC Glucose tolerance, 1 hour 4. 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 Advanced maternal age, primigravida, antepartum ([facility]) O09.519 US OB follow up transabdominalapproach [...] Pee Del Rio DO documented in this encounterMissouri Delta Medical CenterUvqmwuulby86-63-2409 NoteNurse Consultation Note Reason for Visit employee flu vaccine Assessment/Plan 1. Immunization due (Z23: Encounter for immunization) Medications Fluzone PF Prefilled Syringe , 0.5 mL, IntraMuscular, Once Allergies No Known Allergies Immunizations Vaccine Date Status Comments influenza, unspecified formulation 06/18/2023 Given influenza virus vaccine, inactivated 06/18/2023 Recorded 2024-05-01: VIS DATE: 04/22/2021 SARS-CoV-2 (COVID-19) mRNAMUL.ORD![id number] 09/15/2022 Recorded influenza virus vaccine, inactivated 07/10/2022 [...] 01/30/2000 Recorded hepatitis B pediatric vaccine [facility] History of Present illness Narrative* Arline Marcos, ENTRY TABLE OPERATOR - 06/09/2025 9:10 AM EDT Reason for Appointment: Patient ID: Jason Coronel [...] (polycystic ovarian syndrome) 02/24/2025 Positive urine test ([facility]) 02/24/2025 Resolved Ambulatory Problems Diagnosis Date [...] nursing note reviewed. Exam conducted with a diabetic educator present. Vitals: There is no height or weight on file to calculate BMI. BP: 122/86 Patient's last menstrual period was 01/25/2025. ASSESSMENT & PLAN ICD-10-CM 1. Second trimester ([facility]) Z34.92 POCT urinalysis dipstick manually resulted 2. 19 weeks gestation of ([facility]) Z3A.19 Patient presents today for a routine obstetrics appointment. Patient is currently 19w2d with a Estimated Date of Delivery: 11/01/25. Pt [facility] anatomy [facility]. Pt given meclizine for nausea.Pt to call in one week if not working and will order zofran pump through [employer]. Pt to return in 4 weeks for scheduled OB appt. Documented by Arline Marcos LPN on behalf of: Pee Del Rio DO, Diane Casarez PA-C documented in this encounterMissouri Delta Medical CenterOxdjmyjzby65-74-4571 NoteNurse Consultation Note Reason for Visit Pt presents today for repeat lab draw. Assessment/Plan 1. Wellness examination (Z00.00: Encounter for general adult medical examination without abnormal findings) Medications No active medications Allergies No Known Allergies Immunizations Vaccine Date Status Comments influenza, unspecified formulation 06/18/2023 Given influenza virus vaccine, inactivated 06/18/2023 Recorded 2024-05-01: VIS DATE: 04/22/2021 SARS-CoV-2 (COVID-19) mRNAMUL.ORD![id number] 09/15/2022 Recorded influenza virus vaccine, inactivated 07/10/2022 [...] 01/30/2000 Recorded hepatitis B pediatric vaccine [facility]/15/[facility] NoteNurse Consultation Note Reason for Visit patient came IO for lab draw Assessment/Plan 1. Wellness examination (Z00.00: Encounter for general adult medical examination without abnormal findings) Medications No active medications Allergies No Known Allergies Immunizations Vaccine Date Status Comments influenza, unspecified formulation 06/18/2023 Given influenza virus vaccine, inactivated 06/18/2023 Recorded 2024-05-01: VIS DATE: 04/22/2021 SARS-CoV-2 (COVID-19) mRNAMUL.ORD![id number] 09/15/2022 Recorded influenza virus vaccine, inactivated 07/10/2022 [...] 01/30/2000 Recorded hepatitis B pediatric vaccine 02/15/1999 [facility] NotePatient Education Health Maintenance, Female Adopting a healthy lifestyle and getting preventive care are important in promoting health and wellness. Ask your health care provider about: ??? The right schedule for you to have regular tests and exams. ??? Things you can do on your own to prevent diseases and keep yourself healthy. What should I know about diet, weight, and exercise? Eat a healthy diet ??? Eat a diet that includes plenty of vegetables, fruits, low-fat dairy products, and lean protein. ??? Do not eat a lot of foods that are high in solid fats, added sugars, or sodium. Maintain a healthy weight Body mass index (BMI) is used to identify weight problems. It estimates body fat based on height and weight. Your health care provider can help determine your BMI and help you achieve or maintain a healthy weight. Get regular exercise Get regular exercise. This is one of the most important things you can do for your health. Most adults should: ??? Exercise for at least 150 minutes each week. The exercise should increase your heart rate and make you sweat (moderate-intensity exercise). ??? Do strengthening exercises at least twice a week. This is in addition to the moderate-intensityexercise. ??? Spend less time sitting. Even light physical activity can be beneficial. Watch cholesterol and blood lipids Have your blood tested for lipids and cholesterol at 20 years of age, then have this test every 5 years. Have your cholesterol levels checked more often if: ??? Your lipid or cholesterol levels are high. ??? You are older than 40 years of age. ??? You are at high risk for heart disease. What should I know about cancer screening? Depending on your health history and family history, you may need to have cancer screening at various ages. This may include screening for: ??? Breast cancer. ??? Cervical cancer. ??? Colorectal cancer. ??? Skin cancer. ??? Lung cancer. What should I know about heart disease, diabetes, and high blood pressure? Blood pressure and heart disease ??? High blood pressure causes heart disease and increases the risk of stroke. This is more likely to develop in people who have high blood pressure readings or are overweight. ??? Have your blood pressure checked: ? Every 3?5 years if you are 18?39 years of age. ? Every year if you are 40 years old or older. Diabetes Have regular diabetes screenings. This checks your fasting blood sugar level. Have the screening done: ??? Once every three years after age 40 if you are at a normal weight and have a low risk for diabetes. ??? More often and at a younger age if you are overweight or have a high risk for diabetes. What should I know about preventing infection? Hepatitis B If you have a higher risk for hepatitis B, you should be screened for this virus. Talk with your health care provider to find out if you are at risk for hepatitis B infection. Hepatitis C Testing is recommended for: ??? Everyone born from 1945 through 1965. ??? Anyone with known risk factors for hepatitis C. Sexually transmitted infections (STIs) ??? Get screened for STIs, including gonorrhea and chlamydia, if: ? You are sexually active and are younger than 24 years of age. ? You are older than 24 years of age and your health care provider tells you that you are at risk for this type of infection. ? Your sexual activity has changed since you were last screened, and you are at increased risk for chlamydia or gonorrhea. Ask your health care provider if you are at risk. ??? Ask your health care provider about whether you are at high risk for HIV. Your health care provider may recommend a prescription medicine to help prevent HIV infection. If you choose to take medicine to prevent HIV, you should first get tested for HIV. You should then be tested every 3 months for as long as you are taking the medicine. ??? If you are about to stop having your period (premenopausal) and you may become , seek counseling before you get . ??? Take 400 to 800 micrograms (mcg) of folic acid every day if you become . ??? Ask for control (contraception) if you want to prevent . Osteoporosis and menopause Osteoporosis is a disease in which the bones lose minerals and strength with aging. This can resultin bone fractures. If you are 65 years old or older, or if you are at risk for osteoporosis and fractures, ask your health care provider if you should: ??? Be screened for bone loss. ??? Take a calcium or vitamin D supplement to lower your risk of fractures. ??? Be given hormone replacement therapy (HRT) to treat symptoms of menopause. Follow these instructions at home: Alcohol use ??? Do not drink alcohol if: ? Your health care provider tells you not to drink. ? You are , may be , or are planning to become . ??? If you drink alcohol: ? Limit how much you have to: (more content not included)...[facility]08-[facility] History of Present illness Narrative* Arline Marcos LPN - 05/12/2025 9:50 AM EDT Reason for Appointment: Patient ID: Jason Coronel [...] (polycystic ovarian syndrome) 02/24/2025 Positive urine test ([facility]) 02/24/2025 Resolved Ambulatory Problems Diagnosis Date [...] nursing note reviewed. Exam conducted with a diabetic educator present. Vitals: There is no height or weight on file to calculate BMI. BP: 138/82 Patient's last menstrual period was 01/25/2025. ASSESSMENT & PLAN ICD-10-CM 1. Screening, , for anatomic survey ([facility]) Z36.89 US OB 14+ weeks anatomy scan US OB 14+ weeks anatomy scan 2. Well woman exam with routine gynecological exam Z01.419 Pap Smear HPV DNA probe, amplified 3. Second trimester ([facility]) Z34.92 POCT urinalysis dipstick manually resulted 4. 15 weeks gestation of ([facility]) Z3A.15 Alpha fetoprotein, maternal Alpha fetoprotein, maternal 5. STD exposure Z20.2 SURESWAB(R) ADVANCED VAGINITIS PLUS, TMA CHLAMYDIA TRACHOMATIS (GENITO/STI) Neisseria gonorrhea DNA probe, direct 6. Nausea R11.0 promethazine (Phenergan) 12.5 MG tablet Return OB/Annual Exam: Patient presents today for a annual exam/routine obstetrics appointment. Patient is currently 73n4ryxghycny. Patient states she is doing well but has complaints of nausea in the morning. Pap and cultures was obtained without difficulty and patient was given orders for anatomy scan and msAFP to be obtained. Pt still having complaints of nausea and vomiting, rx for phenergan faxed to pharmacy. Pt to take phenergan and zofran. [facility] for vanishing twin and AMA [...] Pee Del Rio DO documented in this encounterMissouri Delta Medical [id number] History of Present illness Narrative* Madisyn Ryder LPN - 04/21/2025 9:30 AM EDT * Arline Marcos LPN - 04/21/2025 9:30 AM EDT Reason for Appointment: Patient ID: Jason Coronel [...] (polycystic ovarian syndrome) 02/24/2025 Positive urine test ([facility]) 02/24/2025 Resolved Ambulatory Problems Diagnosis Date [...] nursing note reviewed. Exam conducted with a diabetic educator present. Vitals: There is no height or weight on file to calculate BMI. BP: Patient's last menstrual period was 01/25/2025. ASSESSMENT & PLAN ICD-10-CM 1. First trimester ([facility]) Z34.91 2. 13 weeks gestation of ([facility]) Z3A.13 New OB: Patient presents today [...] or undercooked meat, and [facility]. Patient has been consulted regarding any further do's and don'tsof . Patient voiced understanding and all questions and concerns were answered. No orders of the defined types were placed in this encounter. Follow Up: Patient is to return in 4 weeks for routine OB appointment. Documented by Arline Marcos LPN on behalf of: Pee Del Rio DO documented in this encounterMissouri Delta Medical CenterZrudbiheem28-53-4000 History of Present illness Narrative* Kyra Dillard LPN - 03/27/2025 10:00 AM EDT Reason for Appointment: Patient ID: Jason Coronel [...] (polycystic ovarian syndrome) 02/24/2025 Positive urine test ([facility] 02/24/2025 Resolved Ambulatory Problems Diagnosis Date Noted [...] dipstick manually resulted , unspecified gestational age ([facility]) - Type and screen; Future - ABO/Rh; Future - CBC and differential - Hemoglobin A1c - RPR - Rubella antibody, IgG - Hepatitis B surface antigen - Hepatitis C antibody - HIV-1 and HIV-2 antibodies - Rapid drug screen, urine; Future - OB transvaginal; Future Encounter for supervision of normal first in first trimester ([facility]) - Rapid drug screen, urine; Future - [...] drink 6-8 glasses of water a day, eatno raw or undercooked meat, and stay away from [facility]. Patient has also been advised to not change litter boxes and eat 6 small meals a day. Patient has been consulted regarding the do's and don'ts ofpregnancy. Patient was given labs and all questions and concerns were answered. Patient will return in office in 1 week for a viability ultrasound on second sac which was noted a visit today. Patient is aware she will need to wait for Gueydan labs to be given until verified. Script [...] by: Kyra Dillard LPN documented in this encounterMissouri Delta Medical CenterEsccfpvhec48-50-4147 Evaluation + Plan note Diagnostic Tests Pending * DHEA 12/22/24 [facility] 03-10-2025 NoteNurse Consultation Note Reason for Visit patient came in for [...] Recorded 2024-05-01: VIS DATE: 04/22/2021 SARS-CoV-2 (COVID-19) mRNAMUL.ORD![id number] 09/15/2022 Recorded influenza virus vaccine, inactivated 07/10/2022 [...] 01/30/2000 Recorded hepatitis B pediatric vaccine 02/15/1999 [facility] Evaluation + Plan note Diagnostic Tests Pending * Progesterone Level 11/24/24 [facility] 02-18-2025 History of Present illness Narrative* Arline Marcos LPN - 11/04/2024 8:40 AM EST Reason for Appointment: Patient ID: Jason Coronel [...] nursing note reviewed. Exam conducted with a diabetic educator present. Vitals: There is no height or [...] to take Femara on days 3-7 of cycle.On day 21 of cycle patient is to [...] Pee Del Rio DO documented in this encounterMissouri Delta Medical CenterJxrurygzru52-29-3575 NotePatient Education Genetic Medicine Diet for Metabolic Syndrome Metabolic syndrome is a disorder that includes three or more of the following conditions: ??? Abdominal obesity, as seen in a large waist measurement. ??? Too much sugar (glucose) in your blood. ??? High blood pressure (hypertension). ??? Vffaum-upew-jprlbt amount of fat (lipids) in your blood. ??? Bxawc-owqy-rjkpty level of good cholesterol (HDL). Keeping an [...] lb (13.6 kg) has lost 10% of hisor her starting weight. What are tips for [...] healthy methods such as baking, boiling, steaming, grilling,roasting, and broiling. ??? Use more herbs and [...] beans. Tomatoes. Squash. Eggplant. Peppers. Onions. Cucumbers. [place] sprouts. Sweet potatoes. Yams. Beans. Lentils. Grains [...] in the blood. Metabolic syndrome raises your riskof developing heart disease, diabetes, and stroke. ??? Following a heart-healthy diet can help you lower your risk of heart disease and improve metabolic syndrome. This diet includes lean proteins, healthy fats, nuts, a (more content not included)...[facility]09-22-2022 NoteHNO ID: [id number] Author: Angelia Mccarthy MD Service: ? Author [...] Angelia Mccarthy MD June 08, 2022 8:13 [facility] 06-08-2022 History of Present illness Narrative* Angelia Mccarthy MD - 06/08/2022 8:11 AM EDT Patient is a good candidate for LASIK. [...] and plan as stated above and agree withall of its relevant components. Angelia Mccarthy MD June 08, 2022 8:13 AM documented in this encounterBucyrus Community Hospital01-26-2022 NoteHNO ID: [id number] Author: Jennie Gamez OD Service: ? Author Type: JOB SUPERINTENDENT Type: Progress Notes Filed: 10/18/2021 1:30 PM [...] all of its relevant components. Jennie [facility] Future Appointments Appointment Date:11/11/2024 12:00:00 PM Scheduled Provider: Location:FT.[facility]TRASOUND Appointment Type:US Abdominal/Pelvis (FT) Diagnostic Tests Pending * Luteinizing Hormone 11/05/24 * FSH Level 11/05/24 * DHEA 11/05/24 * DHEAS 11/05/24 * Anti-Mullerian Hormone (AMH) 11/05/24 Future Scheduled Tests Radiology* US Pelvis Non-OB Complete 11/11/24 * US Transvaginal Non-OB 11/11/24 [facility] Evaluation note* Diagnosis Myopic astigmatism of both eyes- Primary Refractive error Unspecified disorder of refraction and accommodation [facility] Encounter for infertility PCOS (polycystic ovarian syndrome) Polycystic ovaries Abnormal uterine bleeding (AUB) Hormone disorder Unspecified endocrine disorder documented in this encounter [facility] HealthcareEvaluation [facility]* Diagnosis Missed menses , unspecified gestational age ([facility]) Encounter for supervision of normal first in first trimester ([facility]) Nausea Nausea alone [facility] Diagnosis First trimester ([facility]) state, incidental 13 weeks gestation of ([facility]) documented [facility]* Diagnosis Screening, , for anatomic survey ([facility]) Encounter for anatomic survey Well woman exam with routine gynecological exam Routine gynecological examination Second trimester ([facility]) state, incidental 15 weeks gestation of ([facility]) STD exposure Nausea Nausea alone [facility]* Diagnosis Second trimester ([facility]) state, incidental 19 weeks gestation of ([facility]) Nausea Nausea alone [facility]* Diagnosis Encounter for supervision of normal , unspecified, unspecified trimester ([facility]) documented in this encounter [facility] Work Phone: Evaluation note* Diagnosis 23 weeks gestation of ([facility]) Second trimester ([facility]) state, incidental Diabetes mellitus screening Screening for diabetes mellitus 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[facility]) Advanced maternal age, primigravida, antepartum ([facility]) Elderly primigravida, antepartum [facility] Narrative No data available for this section [facility] Discharge instructions No data available for this section [facility] Progress note No data available for this section [facility] Reason for visit Narrative* Imaging (Routine) - AuthorizedSpecialtyDiagnoses / ProceduresReferred By ContactReferred To ContactRadiology Diagnoses Encounter for supervision of normal , unspecified, unspecified trimester ([facility]) Procedures US OB detail anatomy Pee Del Rio DO [address] [facility] [address], [place] [address] Phone: tel: fax: Referral IDStatusReasonStart DateExpiration DateVisits RequestedVisits [id number] Perform Procedure [facility] Work Phone: Summary Purpose Family History No Family History [...] section and content) DATE CREATED AUTHOR 03/11/2018 [facility] DATE CREATED AUTHOR AUTHOR'S ORGANIZ ATION 09/03/2021 [facility] DATE CREATED AUTHOR AUTHOR'S ORGANIZ ATION 06/18/2022 [facility] DATE CREATED AUTHOR AUTHOR'S ORGANIZ ATION 08/17/2022 [facility] DATE CREATED AUTHOR AUTHOR'S ORGANIZ ATION 04/24/2024 [facility] DATE CREATED AUTHOR AUTHOR'S ORGANIZ ATION 11/06/2024 [facility] DATE CREATED AUTHOR AUTHOR'S ORGANIZ ATION 11/07/2024 [facility] DATE CREATED AUTHOR AUTHOR'S ORGANIZ ATION 11/09/2024 [facility] DATE CREATED AUTHOR AUTHOR'S ORGANIZ ATION 11/12/2024 [facility] DATE CREATED AUTHOR AUTHOR'S ORGANIZ ATION 12/06/2024 [facility] DATE CREATED AUTHOR AUTHOR'S ORGANIZ ATION 12/24/2024 [facility] DATE CREATED AUTHOR AUTHOR'S ORGANIZ ATION 06/09/2025 [facility] DATE CREATED AUTHOR AUTHOR'S ORGANIZ ATION 06/29/2025 [facility] DATE CREATED AUTHOR AUTHOR'S ORGANIZ ATION 07/08/2025 [facility] EPIC Source Comments (unrecognize d section and content) In the event this informatio n is protected by the Federal Confidentiality of Alcohol and Drug Abuse Patient Records regulations: The Federal rules restrict any use of the information to criminally investigate or prosecute any alcohol or drug abuse patient.[facility] Hospital[facility] the event this information is protected by the Federal Confidentiality of Alcohol and Drug Abuse Patient Records regulations: The Federal rules restrict any use of the information to criminally investigate or prosecute any alcohol or drug abuse patient.[facility] Care Teams (unrecognized sec tion and content) Team MemberRelationshipSpecialtyStart DateEnd Date [place] [phone] [facility] [address] [place] [address] PCP - Msujnqa73/17/12Team MemberRelationshipSpecialtyStart DateEnd Date Li Guillen [place]ne [phone] [facility] [address] [place] [address] PCP - Yjquakz69/17/12 Reason for Visit (unrecogniz ed section and content) ReasonCommentsRefractive evaluationBLURRED UCVA OUReasonCommentsInfertilityPt present today to discuss fertilityReasonCommentsAmenorrheaReasonCommentsRoutine Visit FOR RECORDS PERTAINING TO PATIENTS WHO [...] BE BASED ON THE PRIMARY CLINICAL RECORDS. [employer] provides no warranty or guarantee of the accuracy or completeness of information in this document.
--- OUTSIDE RECORDS SUMMARY | 2025-07-21 06:39 | XMS_ITS ---
Author Organization [facility] [facility] Source Produ ction (ClinicalSummary Clone) Address Unknown Care Team Providers Care Blanking Machine Operator Name Role Phone Unavailable Primary Care Physician Unavailab le Results * [UNITY] CARRIER SCREEN Performed by: [employer] Component Value Range Date Sickle Cell Disease/Beta-Thalassemia/Hemoglobino pathies carrier screen NEGATIVE 05/14/2025 01:43 am UTCAlpha-Thalassemia carrier ilqpyjIGXOGDXR01/28/2025 01:43 am UTCCystic Fibrosis carrier oaokuoFRVVFTAA04/28/2025 01:43 am UTCSpinal Muscular Atrophy carrier screenNEGATIVE 2 SMN1 copies, SNP not fxchfei4105/14/2025 01:43 am UTCFor detailed report, see PDFSee PDF05/14/2025 01:43 am UTC 05/14/2025 01:43 am UT Social History Observation Value Start Date End Date
--- OUTSIDE RECORDS SUMMARY | 2025-07-21 06:39 | XMS_ITS | Encounter Summary ---
Author Organization [facility] Address [address] [place] [address] Care Team Providers Care Dry House Worker Name Role Phone Unavailable Primary Care Provider Unavailabl e Encounter Details DateTypeDepartmentCare Team (Latest Contact Info)Uzndqjodbql55/21/2025amboo flowsheet [facility] [address] [place] [address] Pee Del Rio DO [address] [place], [facility] Social History Tobacco UseTypesPacks/DayYears UsedDateSmoking Tobacco: Never Assessed Estimated Date of HwbwatxkHicviryuOda28/15/2026Based on last menstrual period of 01/25/2025Sex and Gender InformationValueDate RecordedSex Assigned at BirthFemale 01/29/2024 3:29 PM EDTLegal RvrVvdgmb95/12/2024 3:49 PM EDTGender IdentityFemale 01/29/2024 3:29 PM EDTSexual YtyfxikmjjiNgcwzeyn21/14/2024 3:29 PM EDTdocumented as of this encounter Plan of Treatment DateTypeDepartmentCare Team (Latest Contact Info)Xhjslupaulx53/18/2025 8:00 AM ESTAncillary Procedure [facility] [address] [facility] [place] [address] 08/04/2025 8:30 AM ESTRoutine [facility] [address] [place] [id number] Pee Del Rio DO [address] [place] [address] documented as of this encounter Visit Diagnoses Not on filedocumented in this encounter
--- OUTSIDE RECORDS SUMMARY | 2025-07-21 06:40 | XMS_ITS ---
Author Organization [facility] [facility] Source Produ ction (ClinicalSummary Clone) Address Unknown Care Team Providers Care Power Engineer Name Role Phone Unavailable Primary Care Physician Unavailab le Results * [UNITY] ANEUPLOIDY NIPT Performed by: [place] Component Value Range Date Fraction 6.0% 05/12/2025 03:13 am UTCRh(D) NIPTRhD IWPAGNEB42/26/2025 03:13 am UTCSex Chromosome AneuploidyNOT GULTBFWT92/26/2025 03:13 am UTCMonosomy XLOW RISK <1 in , 03:13 am UTCTrisomy 13LOW RISK <1 in , 03:13 am UTCTrisomy 18LOW RISK <1 in , 03:13 am UTCTrisomy 21LOW RISK <1 in , 03:13 am UTCFetal BuaBOZQ8505/12/2025 03:13 am UTCPregnancy AgqxdjbwmZPJKLTGUV98/26/2025 03:13 am UTCFor detailed report, see PDFSee PDF 05/12/2025 03:13 am UTC05/12/2025 03:13 am UTC Social History Observation Value Start Date End Date
--- OUTSIDE RECORDS SUMMARY | 2025-07-21 06:40 | XMS_ITS | Clinical Summary ---
Author Organization [facility] Address [address] [place] [address] Care Team Providers Care Case Managers Name Role Phone Unavailable Primary Care Provider Unavailabl e Allergies No known active allergies Medications MedicationSigDispense QuantityRefillsLast FilledStart DateEnd DateStatus Doxylamine Succinate, Sleep, (UNISOM PO) 5Active FIBER GUMMIES PO 5Active Vit-Fe Fumarate-FA ( VITAMIN AND MINERAL PO) 5Active pyridoxine (Vitamin B-6) 25 MG tablet 5Active promethazine (Phenergan) 12.5 MG tablet Indications:NauseaTake 1 tablet (12.5 mg) by mouth every 4 (four) hours 180 tablet 5Active ondansetron (Zofran) 4 MG tablet Indications:NauseaTake 2 tablets (8 mg) by mouth if needed for nausea or vomiting 20 tablet 5Active meclizine (Antivert) 25 MG tablet Indications:NauseaTake 1 tablet (25 mg) by mouth 2 (two) times a day as needed for dizziness 60 tablet Expired Active Problems ProblemNoted DateDiagnosed DatePCOS (polycystic ovarian syndrome)02/24/2025 Positive urine test ([facility])02/24/2025Estimated Date of NcqrumnmMboxidysIoh91/15/2026ased on last menstrual period of 01/25/2025 Encounters DateTypeDepartmentCare EydjWyijdkkvhae69/23/2025Telephone [facility] [address] [place] [address] Sandy De León MA 07/07/2025 8:30 AM EDTRoutine [facility] [address] [place] [place] [phone] Pee Del Rio, DO 23 weeks gestation of ([facility]); Second trimester ([facility]); Diabetes mellitus screening; 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[facility]); Advanced maternal age, primigravida, antepartum ([facility])07/07/2025amboo flowsheet [facility] [address] [place] [place] [phone] Pee Del Rio, DO 06/30/20259379Rchlkz33/29/2025Clinisync Result Encounter [facility] External Department Unsolicited Pee Del Rio, DO 06/09/2025 9:10 AM EDTRoutine [facility] [address] [place] [place] [address] Pee Del Rio, Second trimester ([facility]); 19 weeks gestation of ([facility]); Gvpmpz2006/09/2025amboo flowsheet [facility] [address] [place] [place] [address] Pee Del Rio, DO 06/02/20254231Cgjzhk88/03/2025Orders Only [facility] [address] [place] [address] Madisyn Ryder LPN 05/19/2025linisync Result Encounter [facility] External Department Unsolicited Pee Del Rio, DO 05/14/2025bstract [facility] [address] [place] [place] [address] Pee Del Rio, DO 05/12/2025 9:50 AM EDTRoutine [facility] [address] [place] [address] Pee Del Rio, Screening, , for anatomic survey ([facility]); Well woman exam with routine gynecological exam; Second trimester ([facility]); 15 weeks gestation of ([facility]); STD exposure; Ssudwd145Clinisync Result Encounter [facility] External Department Unsolicited Pee Del Rio, DO 05/12/2025External Result Encounter [facility] External Department Unsolicited Pee Del Rio, DO 05/12/2025Telephone [facility] [address] [place] [phone] Arline Marcos LPN 05/12/2025bstract [facility] [address] [place] [address] Pee Del Rio, DO 05/12/2025amboo flowsheet [facility] [address] [place] [address] Pee Del Rio, DO 05/11/20252618Qcjrdq96/19/2025Clinisync Result Encounter [facility] External Department Unsolicited Pee Del Rio, DO 04/21/2025 9:30 AM EDTRoutine [facility] [address] [place] [address] Pee Del Rio, First trimester ([facility]); 13 weeks gestation of ([facility])5Bamboo flowsheet [facility] [address] [place] [address] Pee Del Rio, DO 04/20/2025Telephone [facility] [address] [place] [phone] Sandy De León MA from Last 3 Months Family History Medical HistoryRelationNameCommentshigh blood pressureMotherRelationNameStatus CommentsMother Social History Tobacco UseTypesPacks/DayYears UsedDateSmoking Tobacco: Never Assessed Estimated Date of CflqzqsgHtsqknefNhw43/15/2026Based on last menstrual period of 01/25/2025Sex and Gender InformationValueDate RecordedSex Assigned at BirthFemale 01/29/2024 3:29 PM EDTLegal BefWmcokv26/12/2024 3:49 PM EDTGender IdentityFemale 01/29/2024 3:29 PM EDTSexual BhhktvjbtfhJyxwopbd23/14/2024 3:29 PM EDT Last Filed Vital Signs Vital SignReadingTime TakenCommentsBlood Lpixncxw966/801 8:35 AM EDT Pulse--Temperature--Respiratory Rate--Oxygen Saturation--Inhaled Oxygen Concentration--Nddmqh133 kg (220 lb 12.8 oz)07/07/2025 8:35 AM EDTHeight--Body Mass Index-- Plan of Treatment DateTypeDepartmentCare Team (Latest Contact Info)Edjfivfhuxr87/18/2025 8:00 AM ESTAncillary Procedure [facility] [address] [place] [phone] 08/04/2025 8:30 AM ESTRoutine [facility]OM[facility] GRIFFITHS [address] [place] [address] Pee Del Rio, [address] [facility] [address] [facility] [address] [place], [place] [address] Health MaintenanceDue DateLast DoneCommentsMMR Vaccines (1 of 1 - Standard series)01/10/1989DTaP/Tdap/Td Vaccines (1 - Tdap)01/10/1995Varicella Vaccines (1 of 2 - 13+ 2-dose series)01/10/2001Hepatitis B Vaccines (1 of 3 - 19+ 3-dose series)01/10/2007HPV Vaccines (1 - 3-dose SCDM series)01/10/2015COVID-19 Vaccine ( season), 11/30/2020, 11/09/2020, Additional history existsPap Smear8005/11/2025, 4Cervical Cancer Screening 04/22/2029HPV/Varqjz7204/22/2029Influenza UadnuyuBfxmwzbri96/08/2025, 05/27/2024, 06/18/2023, Additional history existsHIB VaccinesAged OutNo longer eligible based on patient's age to complete this topicHepatitis A VaccinesAged OutNo longer eligible based on patient's age to complete this topicIPV VaccinesAged OutNo longer eligible based on patient's age to complete this topicMeningococcal B VaccineAged OutNo longer eligible based on patient's age to complete this topicMeningococcal VaccineAged OutNo longer eligible based on patient's age to complete this topicPneumococcal Vaccine: Pediatrics (0 to 5 Years) and At-Risk Patients (6 to 64 Years)Aged OutNo longer eligible based on patient's age to complete this topicRotavirus VaccinesAged OutNo longer eligible based on patient's age to complete this topic Procedures Procedure NamePriorityDate/TimeAssociated DiagnosisCommentsPOCT URINALYSIS TBAKMWREGyzmblw29/21/2025 8:49 AM EDT 23 weeks gestation of ([facility]) Second trimester ([facility]) US OB DETAIL AMMZCYA2706/15/2025 4:11 PM EDT POCT URINALYSIS KQJNZPDVNccixhf64/23/2025 9:35 AM EDT Second trimester ([facility]) AFP, SERUM, OPEN SPINA UQKAHZWuzcgac28/02/2025 2:23 PM EDT RECURRENT VAGINITIS (HTRX)Ctjboug3905/12/2025 12:03 PM EDT POCT URINALYSIS ARKOTKRRDcffdbt55/26/2025 10:29 AM EDT Second trimester ([facility]) IGP,APTIMA HPV,AGE IJVNYrlywto17/26/2025 9:53 AM EDT PAP OZUZDDdeupyo65/25/2025 12:00 AM EDTHBSAG XHZHIEUtqurjz06/19/2025 1:40 PM EDT RAPID PLASMA REAGIN, WICAIQrobyij57/19/2025 1:40 PM EDT HCV ANTIBODY RFX TO QUANT ZBGRpoxyqy64/19/2025 1:40 PM EDT ALL RUBELLA IGG EDDfpguzg07/19/2025 1:40 PM EDT HIV AB/P24 AG WITH FTHBCVDgwhjic78/19/2025 1:40 PM EDT MLR HEMOGLOBIN K9CDexfvae56/19/2025 1:40 PM EDT ALL TYPE AND XXILTWOghxhts27/19/2025 1:40 PM EDT ALL CBC WITH AUTO XEWWEywaczf74/19/2025 1:40 PM EDT BOX FNBXBgabtpx59/19/2025 1:40 PM EDT [facility] DRUG SCREEN RAPID (URINE)Ejbeajn6105/05/2025 1:25 PM EDT from Last 3 Months Results * (ABNORMAL) POCT urinalysis dipstick manually resulted (07/07/2025 8:49 AM EDT) Only the most recent of3 resultswithin the time period is included. ComponentValueRef RangeTest MethodAnalysis TimePerformed AtPathologist Signature Color, UAYellowClarity, UAClearGlucose, UANegativeNegative - 2000(110) ++++ mg/dLBilirubin, UANegativeNegative - 4(70) +++ mg/dLKetones, UANegativeNegative - 160(16) ++++ mg/dLSpec Grav, UA1.0301 - 1.03Blood, UAPositiveNegative - 50 Jerry/mcLpH, UA5.55 - 9Protein, UAPositiveNegative - 2000(20) ++++ mg/dL Urobilinogen, UA1.00.2 - 12 mg/dLLeukocytes, UAPositiveNegative - 500+++ Roberta/mcL Nitrite, UANegativeNegative - PositiveSpecimen (Source)Anatomical Location / LateralityCollection Method / VolumeCollection TimeReceived UhvjMxoly79/21/2025 8:49 AM EDT Narrative Authorizing ProviderResult TypeResult StatusCorey Eliane DOPOINT OF CARE TEST ENTER/EDIT ORDERABLESFinal Result * US OB detail anatomy (06/15/2025 4:11 PM EDT)Anatomical RegionLaterality ModalityBodyUltrasoundSpecimen (Source)Anatomical Location / Laterality Collection Method / VolumeCollection TimeReceived Time06/15/2025 4:11 PM EDT Narrative 06/16/2025 3:32 PM EDT Source Facility: [facility] Interpreted by: Alyssa Gardner Indication ======== Detailed [...] 20w 2d 48% Hadlock OFD 61.5 mm ??44% INTERGROWTH-21st HC 173.7 mm 19w 6d 25% Hadlock Cerebellum tr 21.6 mm 20w 5d 70% Ferguson Nuchal fold 3.8 mm AC 148.0 mm 20w 1d 37% Hadlock Femur 34.3 mm 20w 6d 60% Hadlock Humerus 32.6 mm ??57% Chitty HC / AC 1.17 ??56% Hadlock EFW 348 g 20w 2d 48% Hadlock EFW (lb) 0 lb EFW (oz) 12 oz EFW by: Hadlock (PAH-LU-HC-FL) Extended Clinical Application Specialist 9.0 mm CM 4.7 mm ??38% Nicolaides Nasal bone 5.4 mm Head / Face / Neck Cephalic index 0.77 ??26% Nicolaides Nasal bone: present Extremities / Bony Struc FL / BPD 0.73 ??71% Hadlock FL / HC 0.20 ??89% Hadlock FL / AC 0.23 ??84% Hadlock Other Structures FHR 149 bpm Anatomy [...] Normal LVOT view: Normal 3-vessel view: Normal 4-hjuytv-xlkaakz view: Normal Heart / Thorax Situs: situs [...] D3 24.7 mm Rt ovary Vol 11.8 cm??? Lt ovary: Visualized Lt ovary details: Normal Lt ovary D1 26.7 mm Lt ovary D2 14.5 mm Lt ovary D3 28.9 mm Lt ovary Vol 5.9 cm??? Procedure Note Radiology, Radiologist, - 06/16/2025 Source Facility: [facility] Interpreted by: Alyssa Gardner Indication ======== Detailed Anatomy for AMA Primigravida, Class I Obesity ([id number]) History ====== General History Height 170 cm [...] EFW (oz) 12 oz EFW by: Hadlock (LCP-BM-HS-FL) Extended Clinical Application Specialist 9.0 mm CM 4.7 mm 38% Nicolaides [...] Normal LVOT view: Normal 3-vessel view: Normal 8-vmtyao-qyyehsr view: Normal Heart / Thorax Situs: situs [...] D3 24.7 mm Rt ovary Vol 11.8 cm??? Lt ovary: Visualized Lt ovary details: Normal Lt ovary D1 26.7 mm Lt ovary D2 14.5 mm Lt ovary D3 28.9 mm Lt ovary Vol 5.9 cm??? Authorizing ProviderResult TypeResult StatusCorey Eliane CHRISTINA OB US PROCEDURES Final Result * AFP, SERUM, OPEN SPINA BIFIDA (05/19/2025 2:23 PM EDT)ComponentValueRef Range Test MethodAnalysis TimePerformed AtPathologist SignatureRESULTSReport.TBHTEST RESULTS:*Screen Negative*.TBHGEST. AGE ON COLLECTION DATE16.3. weeksTBHGESTAT. AGE BASED ONLMP.TBHComment: Recalculations are not recommended when gestational dating by LMP and ultrasound are within 10 days. MATERNAL AGE AT EDD37.8. yrTBHRACECaucasian.HPZDCJIKX067. lbsTBHINSULIN DEP DIABETESNo.TBHMULTIPLE GESTATIONNo.TBHAFP VALUE22.0. ng/mLTBHAFP MOM0.81.TBHOSBR RISK 1 [id number].TBHINTERPRETATIONComment.TBHComment: Interpretation: Screen Negative This result is screen negative [...] Genetic Customer Services to discuss available options. ??The [place] [employer] recommends amniocentesis be offered to women age 35 and older. COMMENT:Comment.TBHComment: Sheri Soni, Ph.D., [facility] Director References: Available Upon Request. Multiples Of Median Cutoffs ?For AFP Elevations Weinberg ?? 2.5 ? Black ?2.8 IDD ? 2.0 ? Twins ?4.5 ?Abbreviation Definitions IDD - Insulin Dep Diabetes OSBR - Open Spina Bifida Risk For further inquiries contact [employer] at [phone]. This test was developed and its performance characteristics determined by [employer]. It has not been cleared or approved by the Food and Drug Administration. Performed at: ??TG - [facility] [address] [place], [place] ??[id number] Policy Services Representative: Jose Caal [facility], Phone: ??[phone] Specimen (Source)Anatomical Location / LateralityCollection Method / Volume Collection TimeReceived Time05/19/2025 2:23 PM EDT05/19/2025 2:27 PM EDT Narrative [facility] - 05/21/2025 12:07 AM EDT N N LMP [id number] 2 15 N 1 Y 220 N N N N N White/ Authorizing ProviderResult TypeResult StatusCorey Eliane DOLAB BLOOD ORDERABLES Final ResultPerforming OrganizationAddressCity/State/ZIP CodePhone Number [facility] * RECURRENT VAGINITIS (HTRX) (05/12/2025 12:03 PM EDT)ComponentValueRef Range Test MethodAnalysis TimePerformed AtPathologist SignatureATOPOBIUM VAGINAE0 19.961 - 24.689 ppm05/13/2025 6:10 AM EDTHealthTrackRx at LabPortATOPOBIUM VAGINAENot Gcltloyk29.961 - 24.689 ppm05/13/2025 6:10 AM EDTHealthTrackRx at LabPortBVAB 2,3 (BACTERIAL VAGINOSIS ASSOCIATED BACTERIA 2, 3); MOBILUNCUS SPP 019.961 - 24.689 ppm05/13/2025 6:10 AM EDTHealthTrackRx at LabPortBVAB 2,3 (BACTERIAL VAGINOSIS ASSOCIATED BACTERIA 2, 3); MOBILUNCUS SPPNot Detected 19.961 - 24.689 ppm05/13/2025 6:10 AM EDTHealthTrackRx at LabPortCANDIDA ALBICANS, PARAPSILOSIS, ZAMLIGUBUP084.000 - 30.347 ppm05/13/2025 6:10 AM EDT [facility] at LabPortCANDIDA ALBICANS, PARAPSILOSIS, TROPICALISNot Detected 23.000 - 30.347 ppm05/13/2025 6:10 AM EDTHealthTrackRx at LabPortCANDIDA UAXBLFOT308.000 - 31.618 ppm05/13/2025 6:10 AM EDTHealthTrackRx at LabPort TOÑO GLABRATANot Weerbzco13.000 - 31.618 ppm05/13/2025 6:10 AM EDT [facility]ANDIDA NUINIA103.000 - 30.873 ppm05/13/2025 6:10 AM EDTHealthTrackRx at [facility]IDA KRUSEINot Tzqstern28.000 - 30.873 ppm 05/13/2025 6:10 AM EDTHealthTrackRx at [facility] HospitalPortCHLAMYDIA WDDNGRGVZUB922.000 - 31.586 ppm05/13/2025 6:10 AM EDTHealthTrackRx at [facility] HealthCHLAMYDIA TRACHOMATIS Not Gyomfnui25.000 - 31.586 ppm05/13/2025 6:10 AM EDTHealthTrackRx at [facility] GARDNERELLA LERWVTKQM343.961 - 24.689 ppm05/13/2025 6:10 AM EDTHealthTrackRx at [facility] HealthGARDNERELLA VAGINALISNot Dslhrfmw04.961 - 24.689 ppm05/13/2025 6:10 AM EDTHealthTrackRx at [facility] HealthMEGASPHAERA (TYPES 1, 2)019.961 - 24.689 ppm 05/13/2025 6:10 AM EDTHealthTrackRx at [facility] HealthMEGASPHAERA (TYPES 1, 2)Not Mqucrrju10.961 - 24.689 ppm05/13/2025 6:10 AM EDTHealthTrackRx at [facility] NEISSERIA MZXOYFCJOAQ861.000 - 32.587 ppm05/13/2025 6:10 AM EDTHealthTrackRx at [facility] HealthNEISSERIA GONORRHOEAENot Xdftazwy07.000 - 32.587 ppm05/13/2025 6:10 AM EDTHealthTrackRx at LabPortTRICHOMONAS QMJTJNEMF644.000 - 31.995 ppm 05/13/2025 6:10 AM EDTHealthTrackRx at LabPortTRICHOMONAS VAGINALISNot Rgvupgxh10.000 - 31.995 ppm05/13/2025 6:10 AM EDTHealthTrackRx at [facility] MYCOPLASMA NJWIMNOSCW306.961 - 24.689 ppm05/13/2025 6:10 AM EDTHealthTrackRx at Life[facility] HealthMYCOPLASMA GENITALIUMNot Ggmahuwt22.961 - 24.689 ppm05/13/2025 6:10 AM EDTHealthTrackRx at LifePoint HealthSpecimen (Source)Anatomical Location / LateralityCollection Method / VolumeCollection TimeReceived TimeTissue 05/12/2025 12:03 PM EDT05/13/2025 1:30 AM EDT Narrative Authorizing ProviderResult TypeResult StatusCorey Eliane DOLAB BLOOD ORDERABLES Final ResultPerforming OrganizationAddressCity/State/ZIP CodePhone Number [facility] [address] [address] * IGP,APTIMA HPV,AGE GDLN (05/12/2025 9:53 AM EDT)ComponentValueRef RangeTest MethodAnalysis TimePerformed AtPathologist SignatureAGE GDLN ACOG TESTINGNote. TBHComment: ?? TESTS ? RESULT ??FLAG ??UNITS ?REF RANGE ??LAB ?? Clinician Provided Cytology Information ?? Source.............[facility] ?? Other.............. ?? No. of containers..01 ThinPrep Vial Age Algo ACOG Veronica... ??30-65 ? 01 ?FLAG LEGEND: ?L-Low Normal,H-High Normal,LL-Alert Low,HH-Alert High <-Panic Low,>-Panic High,A-Abnormal,AA-Critical Abnormal Performed at: 01 =G ?[facility] ?? [address] [place], [place] ??[address] ?? Sonam Iverson MD, IGP, APTIMA HPV, RFX 16/18,45Note.TBHComment: ?? TESTS ? RESULT ??FLAG ??UNITS ?REF RANGE ??LAB DIAGNOSIS: ?02 ?? NEGATIVE FOR INTRAEPITHELIAL LESION OR MALIGNANCY. ?? THIS SPECIMEN WAS RESCREENED PART OF OUR [employer] AIR CONDITIONING PROGRAM. Specimen adequacy: ?02 ?? Satisfactory for evaluation. ??No endocervical component is identified. ?? An endocervical component is not commonly seen in the patient. Performed by: ? 02 ?? Fidelia Lorenz, Computer Numerical Control Programmer ([facility]) QC reviewed by: ? 02 ?? Jeimy Grigsby Computer Numerical Control Programmer (ASCP) . ? 02 Note: ? Note ?02 ?? The Pap smear is a screening test designed to aid in the ?? detection of premalignant and malignant conditions of the ?? uterine cervix. ??It is not a diagnostic procedure and ?? should not be used as the sole means of detecting cervical ?? cancer. ??Both false-positive and false-negative reports do ?? occur. Test Methodology: ? Note ?02 ?? This liquid based ThinPrep(R) pap test was screened with ?? the use of an image guided system. HPV Genotype Reflex ?? Note ?02 ?? Criteria not met, HPV Genotype not performed. ?FLAG LEGEND: ?L-Low Normal,H-High Normal,LL-Alert Low,HH-Alert High <-Panic Low,>-Panic High,A-Abnormal,AA-Critical Abnormal Performed at: 02 WB ?[facility] ?? [address], [place] ??[address] ?? Sonam Iverson MD, HPV APTIMANegativeNegativeTBHComment: This nucleic acid amplification test detects fourteen high- risk HPV types (16,18,31,33,35,39,45,51,52,56,58,59,66,68) without differentiation. Performed at: ??=G - [facility] [address], [place] ??[id number] Policy Services Representative: Sonam Iverson MD, Phone: ??[phone] Performed at: ??WB - [facility] [address], [place] ??[id number] Policy Services Representative: Sonam Iverson MD, Phone: ??[phone] Specimen (Source)Anatomical Location / LateralityCollection Method / Volume Collection TimeReceived Time05/12/2025 9:53 AM EDT05/12/2025 3:19 PM EDT Narrative [facility] - 05/15/2025 1:08 PM EDT SPATULA-ALONE ENDOCERVIX Authorizing ProviderResult TypeResult StatusCorey Eliane DOLAB BLOOD ORDERABLES Final ResultPerforming OrganizationAddressCity/State/ZIP CodePhone Number [facility] * Pap Smear (05/11/2025 12:00 AM EDT)Specimen (Source)Anatomical Location / LateralityCollection Method / VolumeCollection TimeReceived TimeSwabCervical swab / Unknown Narrative Authorizing ProviderResult TypeResult StatusCorey Eliane DOLAB CYTOLOGY ORDERABLESFinal ResultPerforming OrganizationAddressCity/State/ZIP CodePhone Number EXTERNAL LAB * BOX TEST (05/05/2025 1:40 PM EDT)ComponentValueRef RangeTest MethodAnalysis TimePerformed AtPathologist SignatureBOX TEST SENT IJWTZXONBZHQ5KFOZPLGHUJX5 05/05/25TBHSpecimen (Source)Anatomical Location / LateralityCollection Method / VolumeCollection TimeReceived Time05/05/2025 1:40 PM EDT05/05/2025 1:50 PM EDT Narrative [facility] - 05/05/2025 1:53 PM EDT Authorizing ProviderResult TypeResult StatusCorey Eliane DOLAB BLOOD ORDERABLES Final ResultPerforming OrganizationAddressCity/State/ZIP CodePhone Number [facility] * HBSAG SCREEN (05/05/2025 1:40 PM EDT)ComponentValueRef RangeTest Method Analysis TimePerformed AtPathologist SignatureHBSAG SCREENNegativeNegativeTBH Comment: Performed at: ??[address] ??[id number] Policy Services Representative: Evan Valenzuela PhD, Phone: ??[phone] Specimen (Source)Anatomical Location / LateralityCollection Method / Volume Collection TimeReceived Time05/05/2025 1:40 PM EDT05/05/2025 1:50 PM EDT Narrative [facility] - 05/06/2025 12:09 PM EDT Authorizing ProviderResult TypeResult StatusCorey Eliane DOLAB BLOOD ORDERABLES Final ResultPerforming OrganizationAddressCity/State/ZIP CodePhone Number [facility] * RAPID PLASMA REAGIN, QUANT (05/05/2025 1:40 PM EDT)ComponentValueRef RangeTest MethodAnalysis TimePerformed AtPathologist SignatureRAPID PLASMA REAGIN, QUANT Non ReactiveNonRea<1:1 titerTBHComment: Please Note: This test does not meet current guidelines for screening and diagnosis of syphilis. This test is intended for following treatment response in patients being treated for syphilis infection. To screen for syphilis infection, a reflex cascade that includes both RPR and a treponema-specific assay should be utilized, such as Treponema pallidum (Syphilis) Screening [place]ami ([id number]) or Rapid Plasma Reagin (RPR) Test With Reflex to Quantitative RPR and Confirmatory Treponema pallidum Antibodies ([id number]). Performed at: ??[address] ??[id number] Policy Services Representative: Evan Valenzuela PhD, Phone: ??[phone] Specimen (Source)Anatomical Location / LateralityCollection Method / Volume Collection TimeReceived Time05/05/2025 1:40 PM EDT05/05/2025 1:50 PM EDT Narrative [facility] - 05/06/2025 12:09 PM EDT Authorizing ProviderResult TypeResult StatusCorey Eliane DOLAB BLOOD ORDERABLES Final ResultPerforming OrganizationAddWellSpan Ephr[facility] Community Hospitalty/State/ZIP CodePhone Number [facility] * HIV AB/P24 AG WITH REFLEX (05/05/2025 1:40 PM EDT)ComponentValueRef RangeTest MethodAnalysis TimePerformed AtPathologist SignatureHIV AB/P24 AG SCREENNon ReactiveNon ReactiveTBHComment: HIV-1/HIV-2 antibodies and HIV-1 p24 antigen were NOT detected. There is no laboratory evidence of HIV infection. HIV Negative Performed at: ??[facility] [employer] ??[id number] Policy Services Representative: Evan Valenzuela PhD, Phone: ??[phone] Specimen (Source)Anatomical Location / LateralityCollection Method / Volume Collection TimeReceived Time05/05/2025 1:40 PM EDT05/05/2025 1:50 PM EDT Narrative [facility] - 05/06/2025 5:07 AM EDT Authorizing ProviderResult TypeResult StatusCorey Eliane DOLAB BLOOD ORDERABLES Final ResultPerforming OrganizationAddressty/State/ZIP CodePhone Number [facility] * HCV ANTIBODY RFX TO QUANT PCR (05/05/2025 1:40 PM EDT)ComponentValueRef Range Test MethodAnalysis TimePerformed AtPathologist SignatureHCV ABNon ReactiveNon ReactiveTBHINTERPRETATION:Comment.TBHComment: Not infected with HCV unless early or acute infection is suspected (which may be delayed in an immunocompromised individual), or other evidence exists to indicate HCV infection. Performed at: ??[facility] [employer] ??[id number] Policy Services Representative: Evan Valenzuela PhD, Phone: ??[phone] Specimen (Source)Anatomical Location / LateralityCollection Method / Volume Collection TimeReceived Time05/05/2025 1:40 PM EDT05/05/2025 1:50 PM EDT Narrative [facility] 05/06/2025 8:09 AM EDT Authorizing ProviderResult TypeResult StatusCorey Eliane DOL BLOOD ORDERABLES Final ResultPerforming OrganizationAddSh[facility]/State/ZIP CodePhone [facility] * MLR HEMOGLOBIN A1C (05/05/2025 1:40 PM EDT)ComponentValueRef RangeTest Method Analysis TimePerformed AtPathologist SignatureGLYCOHEMOGLOBIN A1C5.24.5 - 6.2 %TBHComment: ADA RECOMMENDED LIMIT 4.0 - 6.0 ADA THERAPEUTIC TARGET < 7.0 ACTION SUGGESTED > 7.0 ESTIMATED AVERAGE FNUNXLM149fm/dLTBHSpecimen (Source)Anatomical Location / LateralityCollection Method / VolumeCollection TimeReceived Time05/05/2025 1:40 PM EDT05/05/2025 1:50 PM EDT [facility] - 05/05/2025 7:28 PM EDT Authorizing ProviderResult TypeResult StatusCorey Eliane DOCLINISYNCFinal Result Performing OrganizationAddWellSpan [facility] Community Hospitalty/State/ZIP CodePhone Number [facility] * ALL TYPE AND SCREEN (05/05/2025 1:40 PM EDT)ComponentValueRef RangeTest Method Analysis TimePerformed AtPathologist SignatureBLOOD TYPEO PositiveTBHANTIBODY SCREENNEGATIVETBHSpecimen (Source)Anatomical Location / LateralityCollection Method / VolumeCollection TimeReceived Time05/05/2025 1:40 PM EDT05/05/2025 1:50 PM EDT [facility] - 05/05/2025 6:24 PM EDT [facility] , ?? Authorizing ProviderResult TypeResult StatusCorey Eliane DOCLINISYNCFinal Result Performing OrganizationAddSharon [facility] Center/State/ZIP CodePhone Number [facility] * ALL RUBELLA IGG AB (05/05/2025 1:40 PM EDT)ComponentValueRef RangeTest Method Analysis TimePerformed AtPathologist SignatureRUBELLA ANTIBODIES, IGG1.56 Immune >0.99 indexTBHComment: Non-immune <0.90 ?Equivocal ??0.90 - 0.99 Immune >0.99 Performed at: ??CB - [facility] [address], [place], [place] ??[id number] Policy Services Representative: Evan Valenzuela PhD, Phone: ??[phone] Specimen (Source)Anatomical Location / LateralityCollection Method / Volume Collection TimeReceived Time05/05/2025 1:40 PM EDT05/05/2025 1:50 PM EDT Narrative [facility] - 05/06/2025 8:09 AM EDT Authorizing ProviderResult TypeResult StatusCorey Eliane DOCLINISYNCFinal Result Performing OrganizationAddressCity/State/ZIP CodePhone Number [facility] * (ABNORMAL) ALL CBC WITH AUTO DIFF (05/05/2025 1:40 PM EDT)ComponentValueRef RangeTest MethodAnalysis TimePerformed AtPathologist SignatureTBH WBC10.64.0 - 11.0 10 3/uLTBHTBH RBC5.064.20 - 5.40 10 6/uLTBHTBH HGB13.212.0 - 16.0 g/dLTBH TBH HCT39.036.0 - 48.0 %TBHTBH MCV77.1(L)81.0 - 99.0 fLTBHTBH MCH26.1(L)26.7 - 34.0 pgTBHTBH MCHC33.829.9 - 35.2 g/dLTBHTBH RDW15.3(H)11.0 - 15.0 %TBHTBH PLT 899667 - 450 10 3/uLTBHTBH MPV9.2(L)9.5 - 13.5 fLTBHNEUTROPHILS PERCENT AUTO 74.743.0 - 75.0 %TBHLYMPHOCYTES PERCENT AUTO19.9(L)20.5 - 60.0 %TBHMONOCYTES PERCENT AUTO4.71.7 - 12.0 %TBHTBH EO %0.2(L)0.9 - 7.0 %TBHBASOPHILS PERCENT AUTO0.20.2 - 2.0 %TBHIMMATURE GRANULOCYTES PCT AUTO0.30.0 - 0.5 %TBH NEUTROPHILS ABSOLUTE AUTO7.9(H)1.4 - 6.5 10 3/uLTBHLYMPHOCYTES ABSOLUTE AUTO 2.11.2 - 3.8 10 3/uLTBHMONOCYTES ABSOLUTE AUTO0.50.3 - 0.8 10 3/uLTBHTBH EO # 0.00.0 - 0.7 10 3/uLTBHBASOPHILS ABSOLUTE AUTO0.00.0 - 0.1 10 3/uLTBHIMMATURE GRANULOCYTES ABS AUTO0.030.00 - 0.03 10 3/uLTBHSpecimen (Source)Anatomical Location / LateralityCollection Method / VolumeCollection TimeReceived Time 05/05/2025 1:40 PM EDT05/05/2025 1:50 PM EDT Narrative [facility] - 05/05/2025 2:59 PM EDT Authorizing ProviderResult TypeResult StatusCorey Eliane DOCLINISYNCFinal Result Performing OrganizationAddressCity/State/ZIP CodePhone Number [facility] * [facility] DRUG SCREEN RAPID (URINE) (05/05/2025 1:25 PM EDT)ComponentValueRef Range Test MethodAnalysis TimePerformed AtPathologist SignatureCANNABINOID SCREEN URINENEGATIVENEGATIVETBHPHENCYCLIDINE SCREEN URINENEGATIVENEGATIVETBHCOCAINE SCREEN URINENEGATIVENEGATIVETBHMETHAMPHETAMINES SCREEN URINENEGATIVENEGATIVE TBHOPIATE SCREEN URINENEGATIVENEGATIVETBHAMPHETAMINE SCREEN URINENEGATIVE NEGATIVETBHBENZODIAZEPINES SCREEN URINENEGATIVENEGATIVETBHTRICYCLIC ANTIDEPRESSANT URINENEGATIVENEGATIVETBHMETHADONE SCREEN URINENEGATIVENEGATIVE TBHBARBITURATES SCREEN URINENEGATIVENEGATIVETBHOXYCODONE SCREEN URINENEGATIVE NEGATIVETBHBUPRENORPHINE SCREEN URINENEGATIVENEGATIVETBHComment: DRUG CLASS TEST SYSTEM CUT-OFF CONCENTRATIONS ARE FOLLOWS: AMP (Amphetamine): 500 ng/mL BAR (Barbiturates): 200 ng/mL BZO (Benzodiazepines): 150 ng/mL BUP (Buprenorphine): 10 ng/mL EDEN (Cocaine): 150 ng/mL mAMP (Methamphetamine): 500 ng/mL MTD (Methadone): 200 ng/mL OPI (Opiates): 100 ng/mL OXY (Oxycodone): 100 ng/mL PCP (Phencyclidine): 25 ng/mL THC (Cannabinoids): 50 ng/mL TCA (Trycyclic Antidepressants): 300 ng/mL Specimen (Source)Anatomical Location / LateralityCollection Method / Volume Collection TimeReceived Time05/05/2025 1:25 PM EDT05/05/2025 1:50 PM EDT Narrative [facility] - 05/05/2025 2:55 PM EDT Authorizing ProviderResult TypeResult StatusCorey Eliane DOCLINISYNCFinal Result Performing OrganizationAddressCity/State/ZIP CodePhone Number [facility] TB from Last 3 Months Insurance
[2025-07-21 07:58] LABS: Hematocrit 36.1 % (36.0-48.0); Hemoglobin 11.6 g/dL (12.0-16.0); Immature Granulocytes Abs Auto 0.04 10^3/uL (0.00-0.03); Immature Granulocytes Pct Auto 0.4 % (0.0-0.5); Lymphocytes Absolute Auto 2.0 10^3/uL (1.2-3.8); Mean Corpuscular HGB Conc 32.1 g/dL (29.9-35.2); Mean Corpuscular Hemoglobin 26.5 pg (26.7-34.0); Mean Corpuscular Volume 82.6 fL (81.0-99.0); Platelet Count 232 10^3/uL (150-450); Red Blood Count 4.37 10^6/uL (4.20-5.40); White Blood Count 9.8 10^3/uL (4.0-11.0)
[2025-07-21 08:13] LABS: Glucose 1 Hour 131 mg/dL (<130)
== END 2025-07-21 06:37 | disposition home or self-care (01) ==
PROVIDERS: PCP Nurse Practitioner; Visit Provider Obstetrics & Gynecology
DX: Z13.1 Encounter for screening for diabetes mellitus (principal)
CPT/HCPCS: 36415; 82947; 82950; 85025

== ENCOUNTER 2025-09-15 07:03 | Outpatient (OUT) | payer OTHER, SELFPAY ==
--- OUTSIDE RECORDS SUMMARY | 2025-09-01 11:00 | XMS_ITS | Encounter Summary ---
Author Organization [facility] Address [address] [place] [address] Care Team Providers Care Hospice Clinical Manager Name Role Phone Unavailable Primary Care Provider Unavailabl e Reason for Visit * ReasonCommentsRoutine Visit Encounter Details DateTypeDepartmentCare Team (Latest Contact Info)Hsyemrgqxoj42/16/2025 11:00 AM ESTRoutine [facility] [address] [place] [phone] Pee Del Rio DO [address] [place] [address] Third trimester ([facility]); 31 weeks gestation of ([facility]); 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[facility]); Advanced maternal age, primigravida, antepartum ([facility]) Social History Tobacco UseTypesPacks/DayYears UsedDateSmoking Tobacco: NeverSmokeless Tobacco: NeverAlcohol UseStandard Drinks/WeekCommentsYes1 (1 standard drink = 0.6 oz pure alcohol)Estimated Date of QxinxkdmWwxnjhdyPbt35/15/2026ased on last menstrual period of 01/25/2025Sex and Gender InformationValueDate RecordedSex Assigned at LqqpdUqsmwa29/14/2024 3:29 PM EDTLegal AhmFshwgy11/12/2024 3:49 PM EDTGender QajwmiquWlasnl20/14/2024 3:29 PM EDTSexual OrientationStraight 01/29/2024 3:29 PM EDTTravel HistoryTravel StartTravel RhcPvhhtdq29/30/2025 08/19/2025documented as of this encounter Last Filed Vital Signs Vital SignReadingTime TakenCommentsBlood Ialvfjqs991/7809/01/2025 11:25 AM EST Pulse--Temperature--Respiratory Rate--Oxygen Saturation--Inhaled Oxygen Concentration--Whivwa936 kg (223 lb)09/01/2025 11:25 AM ESTHeight--Body Mass Index--documented in this encounter Progress Notes * Arlineenoch Marcos LPN - 09/01/2025 11:00 AM EST Reason for Appointment: Patient ID: Elbert Pena [...] (polycystic ovarian syndrome) 02/24/2025 Positive urine test ([facility]) 02/24/2025 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[facility]) 09/01/2025 Advanced maternal age, primigravida, antepartum ([facility]) 09/01/2025 Resolved Ambulatory Problems Diagnosis Date Noted No Resolved Ambulatory Problems Past Medical History: Diagnosis Date Eczema Menorrhagia 03/17/24 HISTORY PAST MEDICAL HISTORY SOCIAL HISTORY Past Medical History: Diagnosis Date Eczema Menorrhagia 03/17/24 Social History Tobacco Use Smoking status: Never Smokeless tobacco: Never Substance Use Topics Alcohol use: Yes Alcohol/week: 1.0 standard drink of alcohol Types: 1 Glasses of wine per week Drug use: Never FAMILY HISTORY Family History Problem Relation Name [...] nursing note reviewed. Exam conducted with a covering and lining supervisor present. Vitals: There is no height or weight on file to calculate BMI. BP: 128/78 Patient's last menstrual period was 01/25/2025. Assessment/Plan ICD-10-CM 1. Third trimester ([facility]) Z34.93 CANCELED: POCT urinalysis dipstick manually resulted 2. 31 weeks gestation of ([facility]) Z3A.31 3. 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 Advanced maternal age, primigravida, antepartum ([facility]) O09.519 US biophysical profile wnon stress test Assessment/Plan Return OB: Patient presents today for a routine obstetrics appointment. Patient is currently 31w2d . Patient states she is doing well but has complaints of being tired due to current . Patient has verbalizes frequent movement. labor precautions was discussed/given and patient was instructed to perform kick counts three times a day. Orders Placed This Encounter Procedures US biophysical profile w non stress test Follow Up: Patient is to return to office in 2 week for routine OB appointment. Documented by Arline Marcos LPN on behalf of: Pee Del Rio DO documented in this encounter Plan of Treatment DateTypeDepartmentCare Team (Latest Contact Info)Hnxttedvgbs78/30/2025 8:50 AM ESTRoutine [facility] [address] [place] [phone] Diane Gardner PA [address] [place], [place] [phone] 09/29/2025 8:30 AM ESTRoutine [facility] [address] [place] [address] Pee Del Rio DO [address] [place], [place] [phone] NameTypePriorityAssociated DiagnosesOrder ScheduleUS biophysical profile w non stress testImagingRoutine 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
--- OUTSIDE RECORDS SUMMARY | 2025-09-15 07:05 | XMS_ITS | Encounter Summary ---
Author Organization [facility] Address [address] [place] [address] Care Team Providers Care Presentation Specialist Name Role Phone Unavailable Primary Care Provider Unavailabl e Encounter Details DateTypeDepartmentCare Team (Latest Contact Info)Ebcfytcmfhu23/29/2025Travel Social History Tobacco UseTypesPacks/DayYears UsedDateSmoking Tobacco: NeverSmokeless Tobacco: NeverAlcohol UseStandard Drinks/WeekCommentsYes1 (1 standard drink = 0.6 oz pure alcohol)Estimated Date of EjedvissCcuyxdiuJzi99/15/2026ased on last menstrual period of 01/25/2025Sex and Gender InformationValueDate RecordedSex Assigned at VwcpbMloepu75/14/2024 3:29 PM EDTLegal FmkZjeqtu58/12/2024 3:49 PM EDTGender WumhndiwPmtppf57/14/2024 3:29 PM EDTSexual OrientationStraight 01/29/2024 3:29 PM EDTTravel HistoryTravel StartTravel CfrVzqdqvj70/30/2025 08/19/2025documented as of this encounter Plan of Treatment DateTypeDepartmentCare Team (Latest Contact Info)Emmkrcmqxgj31/30/2025 8:50 AM ESTRoutine [facility] [address] [place] [phone] Diane Gardner PA [address] [place], [id number] 09/29/2025 8:30 AM ESTRoutine [facility] [address] [place] [address] Pee Del Rio DO [address] [place], [place] [phone] documented as of this encounter Visit Diagnoses Not on filedocumented in this encounter
--- OUTSIDE RECORDS SUMMARY | 2025-09-15 07:05 | XMS_ITS | Clinical Summary ---
Author Organization [facility] Address [address] [place] [address] Phone Care Team Providers Care Holistic Pulser Name Role Phone Unavailable Primary Care Provider Unavailabl e Encounters DateTypeDepartmentCare EbioYfoitggjppk41/30/2025 7:30 AM EDT - 06/16/2025 11:59 PM EDTHospital Encounter [facility] [address] [place] [address] Encounter for supervision of normal , unspecified, unspecified trimester ([facility]) Discharge Disposition: Homefrom Last 3 Months Social History Tobacco UseTypesPacks/DayYears UsedDateSmoking Tobacco: Never Assessed CommentsUnknownSex and Gender InformationValueDate RecordedSex Assigned at Not on fileLegal EhxLunofg61/28/2025 2:41 PM EDTGender IdentityNot on fileSexual OrientationNot on file Plan of Treatment Health MaintenanceDue DateLast DoneCommentsHIV Scwcvmdge1988Lipid Panel 1988Yearly Adult Injhnzvj1988Hepatitis B Vaccines (2 of 3 - 3-dose series)Diabetes Sryfeccxu48/26/2006Hepatitis C Screening 01/10/2006Cervical Cancer Tprolljos33/26/2009HPV/Gpgcpb9301/10/2009Pap Smear 01/10/2009HPV Vaccines (1 - 3-dose standard series)01/10/2015COVID-19 Vaccine ( season), 09/08/2021, 10/12/2020, Additional history existsInfluenza Vaccine (#1)/10/2022, 07/10/2022, 09/08/2021, Additional history existsDTaP/Tdap/Td Vaccines (3 - Td or Tdap) /, 05/11/2011Zoster Vaccines (1 of 2)01/10/2038MMR Vaccines Mxqhbuaux62/15/2000HIB VaccinesAged OutNo longer eligible based on patient's [...] topic Procedures Procedure NamePriorityDate/TimeAssociated DiagnosisCommentsUS OB DETAIL PTMYBITTjxehra67/30/2025 8:38 AM EDT Encounter for supervision of normal , unspecified, unspecified trimester ([facility]) from Last 3 Months Results * OB [...] EFW (oz) 12 oz EFW by: Hadlock (QFF-ZB-FT-FL) Extended Movie Critic 9.0 mm CM 4.7 mm 38% Nicolaides [...] Normal LVOT view: Normal 3-vessel view: Normal 3-kvyosw-xglrhxx view: Normal Heart / Thorax Situs: situs [...] Anatomy for AMA Primigravida, Class I Obesity (HQT94-51.9) History ====== General History Enczzl582 cm Height (ft)5 ft Height (in)7 in Previous Outcomes Gravida1 Para0 Maternal Assessment Dfsrmx660 cm Height (ft)5 ft Height (in)7 in Mylnhj493 kg Weight (lb)220 lb Weight gain0 kg [...] 37% Hadlock Femur34.3 mm20w 6d 60% Hadlock Udltlvp74.6 mm 57% Chitty HC / AC1.17 56% Hadlock RKT583 g20w 2d 48% Hadlock EFW (lb)0 lb EFW (oz)12 oz EFW by:Hadlock (WYB-BR-BR-FL) Extended Vp9.0 mm CM4.7 mm 38% Nicolaides Nasal bone5.4 mm Head / Face / Neck Cephalic index0.77 26% Nicolaides Nasal bone:present Extremities / Bony Struc FL / BPD0.73 71% Hadlock FL / HC0.20 89% Hadlock FL / AC0.23 84% Hadlock Other Structures CKF696 bpm Anatomy Cranium:Normal Lateral ventricles:Normal Choroid plexus:Normal Midline falx:Normal Cavum septi pellucidi:Normal Cerebellum:Normal Cisterna magna:Normal Head / Neck Head size:Normal Head shape:Normal Rt lateral ventricle:Normal Lt lateral ventricle:Normal Rt choroid plexus:Normal Lt choroid plexus:Normal Thalami:Normal Cerebellar lobes:Normal Vermis:Normal Neck:Normal Neck:No neck masses seen Lips:Normal Profile:Normal Nose:Normal Face Nasal bone:present Maxilla:Normal Mandible:Normal Orbits:Normal 4-chamber view:Normal RVOT view:Normal LVOT view:Normal 3-vessel view:Normal 5-zpayac-aysdxjq view:Normal Heart / Thorax Situs:situs solitus (normal) [...] details:Normal Cervix:Visualized Cervix details:Long and closed Cervical msdwac20.8 mm Ovaries / Tubes / Adnexa Rt ovary:Visualized Rt ovary details:Normal Rt ovary D133.3 mm Rt ovary D227.5 mm Rt ovary D324.7 mm Rt ovary Vol11.8 cm? Lt ovary:Visualized Lt ovary details:Normal Lt ovary D126.7 mm Lt ovary D214.5 mm Lt ovary D328.9 mm Lt ovary Vol5.9 cm? Authorizing ProviderResult TypeResult StatusCorey Randolph Del Rio DOI OB PROCEDURESFinal Result from Last 3 Months Insurance
--- OUTSIDE RECORDS SUMMARY | 2025-09-15 07:05 | XMS_ITS | Clinical Summary ---
Author Organization [facility] Address [address] [place] [address] Care Team Providers Care Recovery Manager Name Role Phone Unavailable Primary Care Provider Unavailabl e Allergies No known active allergies Medications MedicationSigDispense QuantityRefillsLast FilledStart DateEnd DateStatus Doxylamine Succinate, Sleep, (UNISOM PO) 5Active FIBER GUMMIES PO 5Active Vit-Fe Fumarate-FA ( VITAMIN AND MINERAL PO) 5Active pyridoxine (Vitamin B-6) 25 MG tablet 5Active ondansetron (Zofran) 4 MG tablet Indications:NauseaTake 2 tablets (8 mg) by mouth if needed for nausea or vomiting 20 tablet 5Active Active Problems ProblemNoted DateDiagnosed Date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[facility])09/01/2025 Advanced maternal age, primigravida, antepartum ([facility])09/01/2025PCOS (polycystic ovarian syndrome)02/24/2025Positive urine test ([facility]) 02/24/2025Estimated Date of PrndnfnpNsrofnjdHiv10/15/2026ased on last menstrual period of 01/25/2025 Encounters DateTypeDepartmentCare OkaoHxghxvhecyu21/29/2040Oplbxi47/16/2025 11:00 AM EST Routine [facility] [address] [place] [address] [place] [phone] Pee Del Rio, DO Third trimester ([facility]); 31 weeks gestation of ([facility]); 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 [place] [address] Pee Del Rio, DO 08/31/20257805Xkadfk40/04/2025 8:30 AM ESTRoutine [facility] [address] [facility] [place] [address] Pee Del Rio, DO Third trimester ([facility]); 29 weeks gestation of ([facility])08/20/2025amboo flowsheet [facility] [address] [facility] [place] [address] Pee De lRio, DO 08/19/20251987Vzkjcm87/18/2025 8:30 AM ESTRoutine [facility] [address] [facility] [place] [address] Pee Del Rio, DO Second trimester ([facility]); 27 weeks gestation of ([facility])08/04/2025 8:00 AM ESTAncillary Procedure [facility] [address] 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 [place] [address] Pee Del Rio, DO 07/21/2025linisync Result Encounter [facility] Unsolicited Pee Del Rio, DO 07/09/2025Telephone [facility] [address] 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[facility]); Advanced maternal age, primigravida, antepartum ([facility])07/07/2025amboo flowsheet [facility] [place] [address] Pee Del Rio DO 06/30/2025Travelfrom Last 3 Months Family History Medical HistoryRelationNameCommentshigh blood pressureMotherRelationNameStatus CommentsMother Social History Tobacco UseTypesPacks/DayYears UsedDateSmoking Tobacco: NeverSmokeless Tobacco: Never Tobacco Cessation:Counseling Given: Not Answered Alcohol UseStandard Drinks/WeekCommentsYes1 (1 standard drink = 0.6 oz pure alcohol)Estimated Date of MqhhrgcdAqoxagxqSwf31/15/2026ased on last menstrual period of 01/25/2025Sex and Gender InformationValueDate RecordedSex Assigned at VlpuxVnrxbm24/14/2024 3:29 PM EDTLegal AymGkhkkc52/12/2024 3:49 PM EDTGender PzxwpjrcLnnvud84/14/2024 3:29 PM EDTSexual OrientationStraight 01/29/2024 3:29 PM EDTTravel HistoryTravel StartTravel RldLifnosi90/30/2025 08/19/2025 Last Filed Vital Signs Vital SignReadingTime TakenCommentsBlood Hypdufba601/7809/01/2025 11:25 AM EST Pulse--Temperature--Respiratory Rate--Oxygen Saturation--Inhaled Oxygen Concentration--Rlkmnd521 kg (223 lb)09/01/2025 11:25 AM ESTHeight--Body Mass Index-- Plan of Treatment DateTypeDepartmentCare Team (Latest Contact Info)Cpuxoqmwyvi63/30/2025 8:50 AM ESTRoutine [facility] [address] [facility] [place] [phone] Diane Gardner PA [address] [facility] [address] [place], [place] [phone] 09/29/2025 8:30 AM ESTRoutine [facility] [address] [facility] [place] [address] Pee Del Rio DO [address] [facility] [address] [place], [place] [id number] Health MaintenanceDue DateLast DoneCommentsPap Smear8005/11/2025, 4Cervical Cancer Rluaukksd58/06/2029HPV/Tjwsps7204/22/2029Influenza UhskcveNkffpjqep56/08/2025, 05/27/2024, 06/18/2023, Additional history exists Pneumococcal Vaccine: Pediatrics (0 to 5 Years) and At-Risk Patients (6 to 64 Years)Aged OutNo longer eligible based on patient's age to complete this topic Procedures Procedure NamePriorityDate/TimeAssociated DiagnosisCommentsPOCT URINALYSIS XGSEXERRSjmwefz58/04/2025 8:46 AM EST 29 weeks gestation of ([facility]) POCT URINALYSIS JVTVWNXPAllulwq47/18/2025 9:44 AM EST 27 weeks gestation of ([facility]) US OB FOLLOW UP TRANSABDOMINAL CYJOZBUXOdzjhap72/18/2025 8:31 AM EST 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[facility]) Advanced maternal age, primigravida, antepartum ([facility]) GLUCOSE 1 XZLOWsbfoyy70/04/2025 7:44 AM EST ALL CBC WITH AUTO YWQFIirlrdz25/04/2025 7:44 AM EST POCT URINALYSIS UJYSDMGGSrlwjvg88/21/2025 8:49 AM EDT 23 weeks gestation of ([facility]) Second trimester ([facility]) PAP FNHPUQhvenuo84/25/2025 12:00 AM EDTfrom Last 3 Months or Most Recently Relevant to Health Maintenance Results * POCT urinalysis dipstick manually resulted (08/20/2025 8:46 AM EST) Only the most recent of3 resultswithin the time period is included. ComponentValueRef RangeTest MethodAnalysis TimePerformed AtPathologist Signature Color, UAYellowClarity, UAClearGlucose, UANegativeNegative - 2000(110) ++++ mg/dLBilirubin, UANegativeNegative - 4(70) +++ mg/dLKetones, UANegativeNegative - 160(16) ++++ mg/dLSpec Grav, UA1.0101 - 1.03Blood, UANegativeNegative - 50 Jerry/mcLpH, UA6.55 - 9Protein, UANegativeNegative - 2000(20) ++++ mg/dL Urobilinogen, UA1.00.2 - 12 mg/dLLeukocytes, UANegativeNegative - 500+++ Roberta/mcL Nitrite, UANegativeNegative - PositiveSpecimen (Source)Anatomical Location / LateralityCollection Method / VolumeCollection TimeReceived AkvdImjzs89/04/2025 8:46 AM EST Narrative Authorizing ProviderResult TypeResult StatusCorey Eliane DOPOINT OF CARE TEST ENTER/EDIT ORDERABLESFinal Result * US OB follow up transabdominal approach (08/04/2025 8:31 AM EST)Anatomical RegionLateralityModalityBodyUltrasoundSpecimen (Source)Anatomical Location / LateralityCollection Method / VolumeCollection TimeReceived Time08/05/2025 1:02 PM EST Impressions 08/05/2025 1:52 PM EST Single, live intrauterine , current sonographic age of 27 weeks and 5 days, with an estimated date of delivery of October 29, 2025 (prior MEHUL November 01, 2025). * ??Estimated Weight (g) by Percentile is based upon an accurate estimated age based onlast menstrual period. ?? TRANSCRIBED BY: ? ELECTRONICALLY SIGNED BY: Jose M Schmidt MD Narrative 08/05/2025 1:52 PM EST FINDINGS: Comparison April 07, 2025. A single, live intrauterine is present with normal cardiac rate of 144 beats per minute. Normal activity and amniotic fluid volume. Amniotic fluid index is 14 cm. ??Morphology is grossly normal. The current sonographic age is 27 weeks and 5 days, based on the following measurements: ?BPD ? 6.8 cm (27 weeks, 3 days) ?Head Circumference ?25.8 cm (28 weeks, 0 days) ?Abdominal Circumference ?22.3 cm (26 weeks, 5 days) ?Femur Length ?5.4 cm (28 weeks, 4 days) ?Presentation ? Cephalic ? Weight (g) by Percentile ??46.8 % * These measurements result in an estimated date of delivery of October 29, 2025. ?? The current estimated weight is 1087 grams (2 pounds, 6 ounces). ?? Procedure Note Jose M Schmidt MD - 08/05/2025 FINDINGS: Comparison April 07, 2025. A single, live intrauterine is present with normal cardiacrate of 144 beats per minute. Normal activity and amniotic fluidvolume. Amniotic fluid index is 14 cm. Morphology is grossly normal. Thecurrent sonographic age is 27 weeks and 5 days, based on the followingmeasurements: BPD 6.8 cm (27 weeks, 3 days) Head Circumference 25.8 cm (28 weeks, 0 days) Abdominal Circumference 22.3 cm (26 weeks, 5 days) Femur Length 5.4 cm (28 weeks, 4 days) Presentation Cephalic Weight (g) by Percentile 46.8 % * These measurements result in an estimated date of delivery of October. The current estimated weight is 1087 grams (2 pounds, 6ounces). IMPRESSION: Single, live intrauterine , current sonographic age of 27 weeksand 5 days, with an estimated date of delivery of October 29, 2025 (priorEDD November 01, 2025). * Estimated Weight (g) by Percentile is based upon an accurateestimated age based on last menstrual period. TRANSCRIBED BY: ELECTRONICALLY SIGNED BY: Jose M Schmidt MD Authorizing ProviderResult TypeResult StatusPee Del Rio DOI OB US PROCEDURES Final Result * (ABNORMAL) GLUCOSE 1 HOUR (07/21/2025 7:44 AM EST)ComponentValueRef RangeTest MethodAnalysis TimePerformed AtPathologist SignatureGLUCOSE 1 QVMI883(H)<130 mg/dLTBHSpecimen (Source)Anatomical Location / LateralityCollection Method / VolumeCollection TimeReceived Time07/21/2025 7:44 AM EST07/21/2025 7:48 AM EST Narrative [facility] - 07/21/2025 8:27 AM EST Authorizing ProviderResult TypeResult StatusPee Del Rio DOL BLOOD ORDERABLES Final ResultPerforming OrganizationAddressCity/State/ZIP CodePhone Number [facility] * (ABNORMAL) ALL CBC WITH AUTO DIFF (07/21/2025 7:44 AM EST)ComponentValueRef RangeTest MethodAnalysis TimePerformed AtPathologist SignatureTBH WBC9.84.0 - 11.0 10 3/uLTBHTBH RBC4.374.20 - 5.40 10 6/uLTBHTBH HGB11.6(L)12.0 - 16.0 g/dL TBHTBH HCT36.136.0 - 48.0 %TBHTBH MCV82.681.0 - 99.0 fLTBHTBH MCH26.5(L)26.7 - 34.0 pgTBHTBH MCHC32.129.9 - 35.2 g/dLTBHTBH RDW13.411.0 - 15.0 %TBHTBH TNI646 150 - 450 10 3/uLTBHTBH MPV9.4(L)9.5 - 13.5 fLTBHNEUTROPHILS PERCENT AUTO73.3 43.0 - 75.0 %TBHLYMPHOCYTES PERCENT AUTO20.3(L)20.5 - 60.0 %TBHMONOCYTES PERCENT AUTO5.31.7 - 12.0 %TBHTBH EO %0.5(L)0.9 - 7.0 %TBHBASOPHILS PERCENT AUTO0.20.2 - 2.0 %TBHIMMATURE GRANULOCYTES PCT AUTO0.40.0 - 0.5 %TBH NEUTROPHILS ABSOLUTE AUTO7.1(H)1.4 - 6.5 10 3/uLTBHLYMPHOCYTES ABSOLUTE AUTO 2.01.2 - 3.8 10 3/uLTBHMONOCYTES ABSOLUTE AUTO0.50.3 - 0.8 10 3/uLTBHTBH EO # 0.10.0 - 0.7 10 3/uLTBHBASOPHILS ABSOLUTE AUTO0.00.0 - 0.1 10 3/uLTBHIMMATURE GRANULOCYTES ABS AUTO0.04(H)0.00 - 0.03 10 3/uLTBHSpecimen (Source)Anatomical Location / LateralityCollection Method / VolumeCollection TimeReceived Time 07/21/2025 7:44 AM EST07/21/2025 7:48 AM EST Narrative [facility] - 07/21/2025 7:58 AM EST Authorizing ProviderResult TypeResult StatusCorey Eliane DOCLINISYNCFinal Result Performing OrganizationAddressCity/State/ZIP CodePhone Number [facility] * Pap Smear (05/11/2025 12:00 AM EDT)Specimen (Source)Anatomical Location / LateralityCollection Method / VolumeCollection TimeReceived TimeSwabCervical swab / Unknown Narrative Authorizing ProviderResult TypeResult StatusCorey Eliane DOLAB CYTOLOGY ORDERABLESFinal ResultPerforming OrganizationAddressCity/State/ZIP CodePhone Number EXTERNAL LAB from Last 3 Months or Most Recently Relevant to Health Maintenance Insurance
--- OUTSIDE RECORDS SUMMARY | 2025-09-15 07:05 | XMS_ITS | Encounter Summary ---
Author Organization [facility] Address [address] [place] [address] Care Team Providers Care Solder Technician Name Role Phone Unavailable Primary Care Provider Unavailabl e Encounter Details DateTypeDepartmentCare Team (Latest Contact Info)Hpxnldnnhng66/16/2025amboo flowsheet [facility] [address] [phone] Pee Del Rio, [address] [facility] [facility] [address] [place], [facility] Social History Tobacco UseTypesPacks/DayYears UsedDateSmoking Tobacco: NeverSmokeless Tobacco: NeverAlcohol UseStandard Drinks/WeekCommentsYes1 (1 standard drink = 0.6 oz pure alcohol)Estimated Date of IhehhietWwypjxtrDha20/15/2026ased on last menstrual period of 01/25/2025Sex and Gender InformationValueDate RecordedSex Assigned at IaoxqNzghtt71/14/2024 3:29 PM EDTLegal MdoNlfunv27/12/2024 3:49 PM EDTGender RponseggMlufee67/14/2024 3:29 PM EDTSexual OrientationStraight 01/29/2024 3:29 PM EDTTravel HistoryTravel StartTravel VcbUwvkdtr23/30/2025 08/19/2025documented as of this encounter Plan of Treatment DateTypeDepartmentCare Team (Latest Contact Info)Fhqfnmnlfqt24/30/2025 8:50 AM ESTRoutine [facility] [address] [place] [phone] Diane Gardner PA [address] [facility] [address] [place], [place] [phone] 09/29/2025 8:30 AM ESTRoutine [facility] [address] [place] [address] Pee Del Rio DO [address] [facility] [facility] [address] [place], [place] [phone] documented as of this encounter Visit Diagnoses Not on filedocumented in this encounter
--- OUTSIDE RECORDS SUMMARY | 2025-09-15 07:07 | XMS_ITS | CCD ---
Author Organization [facility] Care Team Providers Care Food Mobile Driver Name Role Phone Giovany Josue Unavailable Unavail able Li Guillen Primary Care Provider Li Guillen Primary Care Provider ANGELIA MCCARTHY Attending Unavailable VERA, JENNIE Referring Unavailable LI GUILLEN F Primary Care Unavailable JENNIE GAMEZ Attending Unavailable LI GUILLEN F Primary Care Unavailable AILYN CASAREZ Attending Unavailable Unavailable Primary Care Provider [...] SEGOVIA Attending UnavailASHISH Ramirez Primary Care Physician [phone] ELIANE, Pee R Attending Unavailable ELIANE, Pee [...] Class(es)DatesSig (Normalized)Sig (Original)Doxylamine Succinate, Sleep, (UNISOM PO) (17 sources)Start: 03-88-4411Kblmzutzub Succinate, Sleep, (UNISOM PO) 03/09/2025 ActiveFIBER GUMMIES PO (17 sources)Start: 13-43-3459FYAOE GUMMIES PO 04/06/2025 Activeletrozole 2.5 mg oral tablet (2 sources)Aromatase InhibitorStart: 11-04-2024 End: 68-67-5592fjqc 1 tablet by mouth once dailyletrozole (Femara) 2.5 MG chemo tablet Indications: Encounter for infertility , PCOS (polycystic ovarian syndrome) , Abnormal uterine bleeding (AUB) Take 1 tablet (2.5 mg total) by mouth Daily for 5 days. Take with or without food. 5 tablet 11/04/2024 11/09/2024 Activemeclizine hydrochloride 25 mg oral tablet (6 sources)AntiemeticStart: 06-09-2025 End: 17-34-7918qwkv 1 tablet by mouth twice daily as needed for dizziness meclizine (Antivert) 25 MG tablet Indications: Nausea Take 1 tablet (25 mg) by mouth 2 (two) times a day as needed for dizziness 60 tablet 1 06/09/2025 07/09/2025 Knkqps86 hr metFORMIN hydrochloride 500 mg extended release oral tablet (6 sources)BiguanideStart: 11-04-2024 End: 24-96-3727vvbj 1 tablet by mouth every twenty-four hours at mealtime metFORMIN XR (Glucophage-XR) 500 MG 24 hr tablet Indications: PCOS (polycystic ovarian syndrome) , Abnormal uterine bleeding (AUB) Take 1 tablet (500 mg) by mouth in the evening. Take with meals Do not crush, chew, or split. 30 tablet 11 11/04/2024 03/27/2025 Discontinuedondansetron 4 mg oral tablet (20 sources)Serotonin-3 Receptor AntagonistStart: 03-27-2025 End: 47-05-9601wgxsuojrbhl (Zofran) 4 MG tablet Indications: Nausea Take 2 tablets (8 mg) by mouth if needed for nausea or vomiting 20 tablet 2 06/09/2025 ActiveStart: 91-41-1405jumk 1 tablet by mouth every six hours as needed for nauseaondansetron 4 mg Tab 4 mg = 1 tab(s), Oral, q6hr, PRN Nausea/Vomiting, # 10 tab(s), Refills(s) 0, Pharmacy: [facility], 166, cm, 07/25/24 9:47:00 EST, Height/Length Dosing, 92.6, kg, 07/25/24 9:47:00 EST, Weight Dosing Start Date: 10/20/24 Status: Ordered Quantity: 10.0 Unit: tab(s) Repeat number: 1 Start: 24-71-7441zilfvhmkckv (ZOFRAN) 4 mg tablet Take 4 mg by mouth. 0 02/04/2021 ActiveStart: 41-34-7097swpo 1 tablet by mouth every eight hours as neededondansetron orally disintegrating 4 mg disintegrating tablet Take 1 tablet by mouth every 8 hours as needed for Nausea/Vomiting. 8 tablet 0 09/02/2012 ActiveComment on above:Take 1 tablet by mouth every 8 hours as needed for Nausea/Vomiting.Take 4 mg by mouth. Vit-Fe Fumarate-FA ( VITAMIN AND MINERAL PO) (17 sources)Start: 89-02-0351Aazpeotu Vit-Fe Fumarate-FA ( VITAMIN AND MINERAL PO) 04/06/2025 Activepromethazine hydrochloride 12.5 mg oral tablet (13 sources)PhenothiazineStart: 05-12-2025 End: 68-83-4054oqug 1 tablet by mouth every four hours for nausea and nausea promethazine (Phenergan) 12.5 MG tablet Indications: Nausea Take 1 tablet (12.5 mg) by mouth every 4 (four) hours 180 tablet 1 05/12/2025 08/10/2025 Active pyridoxine hydrochloride 25 mg oral tablet (17 sources)Start: 64-00-0297kjzhornzlk (Vitamin B-6) 25 MG tablet 03/09/2025 Activetropicamide 10 mg/ml ophthalmic solution (1 source)AnticholinergicStart: 10-11-2021 End: 99-59-4945ivvbkxdcecb 1 % 1 Drop (MYDRIACYL) Completed/Discontinued Medications MedicationDrug Class(es)DatesSig (Normalized)Sig (Original)azithromycin 250 mg oral tablet (1 source)Macrolide Antimicrobialtake 1 tablet by mouth once dailyazithromycin 250 mg tablet Take 250 mg by mouth once daily. 0 ActiveComment on above:Take 250 mg by mouth once daily.levonorgestrel 0.005913 mg/hr intrauterine system (1 source)Progestin, Progestin-containing Intrauterine Devicelevonorgestrel (MIRENA) 20 mcg/24 hours (7 yrs) 52 mg IUD 1 Each by INTRAUTERINE route. 0 ActiveComment on above:1 Each by INTRAUTERINE route.phentermine hydrochloride 37.5 mg oral tablet (4 sources)Sympathomimetic Amine AnorecticStart: 06-70-6174uhsebfvyiwu 37.5 mg Tab 37.5 mg = 1 tab(s), Oral, Daily, 30 EA, 0 Refill(s), TAKE 1 TABLET BY MOUTH EVERY MORNING (BEFORE BREAKFAST) FOR 30 DAYS., # 30 tab(s), Refills(s) 0, Pharmacy: [id number], 166, cm, 07/25/24 9:47:00 EST, Height/Length Dosing, 92.6, kg, 07/25/24 9:47:00 EST, Weight Dosing Start Date: 07/25/24 Status: Ordered Quantity: 30.0 Unit: tab(s) Repeat number: 1predniSONE 20 mg oral tablet (1 source)Start: 49-29-8136ndgj 1 tablet by mouth twice dailypredniSONE 20 mg tablet Take 1 tablet by mouth twice daily. 8 tablet 0 09/02/2012 ActiveComment on above:Take 1 tablet by mouth twice daily.triamcinolone acetonide 0.001 mg/mg topical ointment (8 sources)CorticosteroidStart: 61-64-5279retzranrkuhbt acetonide (KENALOG) 0.1 % ointment End: 48-10-0470aticmqvcfzszf (Kenalog) 0.5 % cream Apply topically if needed 03/27/2025 Discontinued Problems Active Problems Problem ClassificationProblemDateDocumented DateEpisodic/ChronicBlindness and vision defects (2 sources)Disorder of refraction; Translations: [Unspecified disorder of refraction]EpisodicContraceptive and procreative management (6 sources)Patient encounter status; Translations: [Encounter for procreative management, unspecified]94-77-6269AhvsjzdaOjoogfhgnafgz and screening for infectious disease (2 sources)Exposure to sexually transmissible disorder; Translations: [Contact with and (suspected) exposure to infections with a predominantly sexual mode of transmission]06-36-5974BnrlznimMhluaicuj disorders (1 source)Missed period; Translations: [Irregular menstruation, unspecified] 47-35-2224QumlrunXmetea and vomiting (5 sources)Nausea; Translations: [Nausea]05-88-9049QzwbqlucEthmx complications of (2 sources)Vanishing twin syndrome; Translations: [Continuing after spontaneous of one fetus or more, unspecified trimester, not applicable or unspecified]34-25-9278HijemqduUqmqq complications of (2 sources)Elderly primigravida; Translations: [Supervision of elderly primigravida, unspecified trimester]21-71-8271UujafhabOgimu endocrine disorders (20 sources)Polycystic ovary syndrome; Translations: [Polycystic ovarian syndrome]Onset: 864587-73-7912EbxdpehSqaph endocrine disorders (2 sources)Disorder of endocrine system; Translations: [Endocrine disorder, unspecified]42-41-5522IbcpvchnGeqpt female genital disorders (2 sources)Abnormal uterine bleeding; Translations: [Abnormal uterine and vaginal bleeding, unspecified]22-62-4097JlywxyqVfteo nutritional; endocrine; and metabolic disorders (4 sources)Body mass index 30+ - -75-4874GwdlmgpVjabg nutritional; endocrine; and metabolic disorders (4 sources)Wwcdivu93-63-8329SlavtomZovxu nutritional; endocrine; and metabolic disorders (4 sources)Weight rglu90-66-4535XuxwgqyyMuuaffww codes; unclassified (2 sources)Gestation period, 13 weeks; Translations: [13 weeks gestation of ]19-25-4274NjurrxgsYgslbsxr codes; unclassified (2 sources)Gestation period, 15 weeks; Translations: [15 weeks gestation of ]56-77-4275LoujalvtShpcdhfk codes; unclassified (2 sources)Gestation period, 19 weeks; Translations: [19 weeks gestation of ]89-84-3557LminxcgaZkmghkdz codes; unclassified (2 sources)Gestation period, 23 weeks; Translations: [23 weeks gestation of ]32-04-6927SmnylioxNtzeoltqjrog (2 sources)Contusion of lower back and pelvis, initial encounter / S30.0XXA(ICD-10)Onset: 95-06-3025Eeuqzcdyibws (12 sources)Patient encounter uwvkqn97-11-5652 Past or Other Problems Problem ClassificationProblemDateDocumented DateEpisodic/ChronicFracture of lower limb (2 sources)Closed fracture of ankle; Translations: [Other fracture of unspecified lower leg, initial encounterfor closed fracture]Onset: 08-08-2006 23-93-2305TaardpteArthm and delivery including normal (20 sources)Urine test positive; Translations: [Encounter for test, result positive]Onset: 556222-62-0638VybbdybnIifbyrhcdgpn (1 source)Contusion of lower back and pelvis, initial encounter; Translations: [Contusion of lower back and pelvis, initial encounter]Onset: 10-08-2017 Results Test NameValueInterpretationReference RangeFacilityALL CBC WITH AUTO DIFFon 71-86-5780DGAHPBHXS ABSOLUTE AUTO0.0NOMS HealthcareBasophils/100 WBC (Bld)0.2 % 0.2 - 2.0 %[facility]S HealthcareEosinophils/100 WBC (Bld)0.5 %Low0.9 - 7.0 %[facility]S HealthcareErythrocyte distribution width (RBC) [Ratio]13.4 %11.0 - 15.0 %[facility] HealthcareHematocrit (Bld) [Volume fraction]36.1 %36.0 - 48.0 %[facility] Hemoglobin (Bld) [Mass/Vol]11.6 g/dLLow12.0 - 16.0 g/dLFreeman Heart InstituteIMMATURE GRANULOCYTES ABS AUTO0.04HighNOEllett Memorial HospitalImmature granulocytes/100 WBC (Bld) 0.4 %0.0 - 0.5 %[facility] InstituteInterpretation and review of laboratory results AbnormalFreeman Heart InstituteLYMPHOCYTES ABSOLUTE AUTO2.0[facility] Lymphocytes/100 WBC (Bld)20.3 %Low20.5 - 60.0 %[facility] HospitalH (RBC) [Entitic mass]26.5 pgLow26.7 - 34.0 pgMercy McCune-Brooks HospitalHC (RBC) [Mass/Vol]32.1 g/dL29.9 - 35.2 g/dLMercy McCune-Brooks HospitalV (RBC) [Entitic vol]82.6 fL81.0 - 99.0 fLFreeman Heart InstituteMONOCYTES ABSOLUTE AUTO0.5[facility] InstituteMonocytes/100 WBC (Bld)5.3 % 1.7 - 12.0 %[facility] InstituteNEUTROPHILS ABSOLUTE AUTO7.1HighFreeman Heart Institute Neutrophils/100 WBC (Bld)73.3 %43.0 - 75.0 %[facility] InstitutePlatelet mean volume (Bld) [Entitic vol]9.4 fLLow9.5 - 13.5 fLFreeman Heart InstituteTB EO #0.1NOMS HealthcareTB AAR748RJQA [facility] HospitalTB RBC4.37NOMS [facility] HospitalTB WBC9.8NOEllett Memorial HospitalCLINISYNCNSaint Francis Medical CenterUrinalysis macro (dipstick) panel (U)on 25-82-2064Xormblscf, UANegativeNegative - 4(70) +++ mg/dLFreeman Heart InstituteBlood, UAPositiveNegative - 50 Jerry/mcLNOND HealthcareClarity, UAClearNOND Healthcare Color, UAYellowNOND HealthcareGlucose, UANegativeNegative - 2000(110) ++++ mg/dL [facility] InstituteInterpretation and review of laboratory resultsAbnormalBL[facility]OUNTAIN [facility]ITAL HealthcareKetones, UANegativeNegative - 160(16) ++++ mg/dLFreeman Heart Institute Leukocytes, UAPositiveNegative - 500+++ Roberta/mcLNOMS HealthcareNitrite, UA NegativeNegative - PositiveNOMS HealthcarepH, UA5.55 - 9NOMS HealthcareProtein, UAPositiveNegative - 2000(20) ++++ mg/dLNOMS HealthcareSpec Grav, UA1.0301 - 1.03NOMS HealthcareUrobilinogen, UA1.00.2 - 12 mg/dLNOMS HealthcareNOMS HealthcareUS for pregnancyon 08-38-2034Scmwzzonkpf by: Alyssa Gardner Indication ======== Detailed Anatomy [...] EFW (oz) 12 oz EFW by: Hadlock (AJM-LW-BL-FL) Extended Dietitian 9.0 mm CM 4.7 mm 38% Nicolaides [...] Normal LVOT view: Normal 3-vessel view: Normal 0-dtplgz-rsusjuf view: Normal Heart / Thorax Situs: situs [...] no Nuchal f (more content not included)... lAyssa Mullen MD - 06/16/2025 Interpreted by: Alyssa Gardner Indication ======== Detailed Anatomy for AMA Primigravida, Class I Obesity (BMI 30-34.9) History ====== General History Bqifrv776 cm Height (ft)5 ft Height (in)7 in Previous Outcomes Gravida1 Para0 Maternal Assessment Hbozgw178 cm Height (ft)5 ft Height (in)7 in Bbytoj543 kg Weight (lb)220 lb Weight gain0 kg [...] 37% Hadlock Femur34.3 mm20w 6d 60% Hadlock Sihlncs20.6 mm 57% Chitty HC / AC1.17 56% Hadlock QXQ750 g20w 2d 48% Hadlock EFW (lb)0 lb EFW (oz)12 oz EFW by:Hadlock (YPG-SN-UU-FL) Extended Vp9.0 mm CM4.7 mm 38% Nicolaides Nasal bone5.4 mm Head / Face / Neck Cephalic index0.77 26% Nicolaides Nasal bone:present Extremities / Bony Struc FL / BPD0.73 71% Hadlock FL / HC0.20 89% Hadlock FL / AC0.23 84% Hadlock Other Structures NOX758 bpm Anatomy Cranium:Normal Lateral ventricles:Normal Choroid plexus:Normal Midline falx:Normal Cavum septi pellucidi:Normal Cerebellum:Normal Cisterna magna:Normal Head / Neck Head size:Normal Head shape:Normal Rt lateral ventricle:Normal Lt lateral ventricle:Normal Rt choroid plexus:Normal Lt choroid plexus:Normal Thalami:Normal Cerebellar lobes:Normal Vermis:Normal Neck:Normal Neck:No neck masses seen Lips:Normal Profile:Normal Nose:Normal Face Nasal bone:present Maxilla:Normal Mandible:Normal Orbits:Normal 4-chamber view:Normal RVOT view:Normal LVOT view:Normal 3-vessel view:Normal 5-gxjonr-rcifvld view:Normal Heart / Thorax Situs:situs solitus (normal) [...] fold:normal Echogenic bowel:no Pyelectasis:no (more content not included)...[facility] Work Phone: Source Facility: [facility] Interpreted by: Alyssa Gardner Indication ======== Detailed [...] EFW (oz) 12 oz EFW by: Hadlock (ZTP-TK-SB-FL) Extended Dietitian 9.0 mm CM 4.7 mm 38% Nicolaides [...] Normal LVOT view: Normal 3-vessel view: Normal 8-tmdymp-gskxlaz view: Normal Heart / Thorax Situs: situs [...] not included)...Radiology, Radiologist, - 06/16/2025 Source Facility: [facility] Interpreted by: Alyssa Gardner Indication ======== Detailed [...] EFW (oz) 12 oz EFW by: Hadlock (JLN-VV-ZL-FL) Extended Dietitian 9.0 mm CM 4.7 mm 38% Nicolaides [...] Normal LVOT view: Normal 3-vessel view: Normal 6-jakzhr-ejiclnk view: Normal Heart / Thorax Situs: situs [...] feet: Normal sex: ma (more content not included)...[facility] HealthcareRadiology Study observation (narrative)[facility] Work Phone: US for pregnancyOrdered By: Alyssa Gardner on 44-65-3059JykaxaiwvpC[facility] Work Phone: US for pregnancyOrdered By: Radiologist Radiology on 08-95-2487[facility] Work Phone: US for pregnancyon 13-79-3886Pewrrzneh Study observation (narrative)[facility] HealthcareUrinalysis macro (dipstick) panel (U)on 65-31-0890Txmwsyewz, UANegativeNegative - 4(70) +++ mg/dLNOMS HealthcareBlood, UANegativeNegative - 50 Jerry/mcLNOMS HealthcareClarity, UAClearNOMS Healthcare Color, UAYellowNOMS HealthcareGlucose, UANegativeNegative - 2000(110) ++++ mg/dL [facility] HealthcareInterpretation and review of laboratory resultsAbnormalNOMS HealthcareKetones, UANegativeNegative - 160(16) ++++ mg/dLN[facility]S Healthcare Leukocytes, UAPositiveNegative - 500+++ Roberta/mcLNOMS HealthcareComment on above: 1+Nitrite, UANegativeNegative - PositiveNOMS HealthcarepH, UA6.55 - 9NOMS HealthcareProtein, UANegativeNegative - 2000(20) ++++ mg/dLNOMS HealthcareSpec Grav, UA1.0151 - 1.03NOMS HealthcareUrobilinogen, UA0.20.2 - 12 mg/dLNOMS HealthcareNOMS HealthcareLipid Panelon 79-86-4403Ssmfnrwspai [Mass/Vol]231 mg/dL Zkuf841-670UqiojaPromedica Flower HospitalComment on above:Performed By: #### [id number] #### [facility] [address], [place] [address]Pmjfitywjsv in HDL [Mass/Vol]61 mg/dLInvalid Interpretation CodePromedica Flower HospitalComment on above:Result Comment: '>= 60 LOW RISK' '<= 40 HIGH RISK'Performed By: #### [id number] #### [facility] [address] [place] [place], [place] [address]Vddlxssnedp in LDL [Mass/Vol]148 mg/dLHigh<=129Promedica Flower HospitalComment on above:Performed By: #### [id number] #### [facility] [address] [place] [address]Xhisjauyjbt in VLDL [Mass/Vol]47 mg/dLHigh7-40Promedica Flower HospitalComment on above:Performed By: #### [id number] #### [facility] [address] [place], [place] [address]Ukbgsognpqga [Mass/Vol]237 mg/dLHigh<=149Promedica Flower HospitalComment on above:Performed By: #### [id number] #### [facility] [address] [place], [place] [address]MUX, SERUM, OPEN SPINA BIFIDAon 73-82-1593WNM MOM0.81.NOMSt. Joseph Medical CenterAFP VALUE22.0 ng/mL.[facility] HealthcareCOMMENT:Comment.[facility] Comment on above:Sheri Soni, Ph.D., [facility] Director References: Available Upon Request. Multiples Of Median Cutoffs For AFP Elevations Weinberg 2.5 Black 2.8 IDD 2.0 Twins 4.5 Abbreviation Definitions IDD - Insulin Dep Diabetes OSBR - Open Spina Bifida Risk For further inquiries contact [facility] at [phone]. This test was developed and its performance characteristics determined by [employer]. It has not been cleared or approved by the Food and Drug Administration. Performed at: [facility] [address], [place] [id number] Electric Meter Repairer Apprentice: Jose Caal [facility], Phone: [phone] GEST. AGE ON COLLECTION DATE16.3. weeksNOND HealthcareGESTAT. AGE BASED ONLMP. NOMS HealthcareComment on above:Recalculations are not recommended when gestational dating by LMP and ultrasound are within 10 days. INSULIN DEP DIABETESNo.[facility] HealthcareINTERPRETATIONComment.[facility] Comment on above:Interpretation: Screen Negative This result [...] Customer Services to discuss available options. The [employer] recommends amniocentesis be offered to women age 35 and older. MATERNAL AGE AT EDD37.8. yrNOMS HealthcareMULTIPLE GESTATIONNo.[facility] Healthcare OSBR RISK 1 [id number].NOMS HealthcareRACECaucasian.[facility] HealthcareRESULTSReport. [facility] HealthcareTEST RESULTS:Negative.[facility] ZdaasdjzocGMVOMQ320. lbsNOND HealthcarePREGNANCY N N LMP [id number] 2 15 N 1 Y 220 N N N N N White/ CLINISYNCNOND HealthcareAmbulatory Visit Summaryon 76-46-6100Ymtdgwrqcw Visit SummaryAmbulatory Visit Summary JASON CORONEL Joshua :1990 Visit Date:05/20/2025 Ambulatory Visit Instructions Your [...] you are at increased (more content not included)...[facility] HospitalFaboston [facility] hospital Medicine Office/Clinic Noteon 17-29-8799Ldzxac Medicine Office/Clinic NoteFaboston university medical center hospital Medicine Office/Clinic Note Chief Complaint wellness [...] ASHISH SEGOVIA CNP, FAM Within [address] [place] [phone] Business (1) Additional Instructions: Well adult [...] Recorded 2024-05-01: VIS DATE: 04/22/2021 SARS-CoV-2 (COVID-19) mRNAMUL.ORD![id number] 09/15/2022 Recorded influenza virus vaccine, inactivated 07/10/2022 [...] virus vaccine 01/29 (more content not included)...Normal Fried [facility] InstituteComment on above:Result Comment: Electronically Signed By: ASHISH SEGOVIA CNP\zenon\Date and Time Signed: 05/20/25 08:42 EDT IGP,APTIMA HPV,AGE GDLNon 77-66-5439GEV LN ACOG TESTINGNote.[facility] Comment on above:TESTS RESULT FLAG UNITS REF RANGE LAB Clinician Provided Cytology Information Source.............[facility] Other.............. No. of containers..01 ThinPrep Vial Age Algo ACOG Veronica... 30 FLAG LEGEND: L-Low Normal,H-High Normal,LL-Alert Low,HH-Alert High <-Panic Low,>-Panic High,A-Abnormal,AA-Critical Abnormal Performed at: 01 =[address] [address] Sonam Iverson MD, HPV APTIMANegativeNegativeNOMS HealthcareComment on above:This nucleic acid amplification test detects fourteen high- risk HPV types (16,18,31,33,35,39,45,51,52,56,58,59,66,68) without differentiation. Performed at: =[address] [id number] Electric Meter Repairer Apprentice: Sonam Iverson MD, Phone: [phone] Performed at: [address] [id number] Electric Meter Repairer Apprentice: Sonam Iverson MD, Phone: [phone] IGP, APTIMA HPV, RFX 16/18,45Note.NOMS HealthcareComment on above:TESTS RESULT FLAG UNITS REF RANGE LAB DIAGNOSIS: 02 NEGATIVE FOR INTRAEPITHELIAL LESION OR MALIGNANCY. THIS SPECIMEN WAS RESCREENED PART OF OUR ENERGY INFRASTRUCTURE ENGINEER PROGRAM. Specimen adequacy: 02 Satisfactory for evaluation. No endocervical component is identified. An endocervical component is not commonly seen in the patient. Performed by: 02 Fidelia Lorenz, Adjustment Clerk (ASCP) QC reviewed by: 02 Jeimy Grigsby, Adjustment Clerk (ASCP) . 02 Note: Note 02 The [...] Low,>-Panic High,A-Abnormal,AA-Critical Abnormal Performed at: [address] [facility] [place] [address] Sonam Iverson MD, SPATULA-ALONE ENDOCERVIX CLINISYNCNOMS HealthcareRECURRENT VAGINITIS (HTRX)on 67-54-5594WZYARZYHJ VAGINAE 0NOMS HealthcareATOPOBIUM VAGINAENot detectedNOMS HealthcareBVAB 2,3 (BACTERIAL VAGINOSIS ASSOCIATED BACTERIA 2, 3); MOBILUNCUS EZH9UJVD HealthcareBVAB 2,3 (BACTERIAL VAGINOSIS ASSOCIATED BACTERIA 2, 3); MOBILUNCUS SPPNot detectedNOMS HealthcareCANDIDA ALBICANS, PARAPSILOSIS, [id number] HealthcareCANDIDA ALBICANS, PARAPSILOSIS, TROPICALISNot detectedNOMS HealthcareCANDIDA GLABRATA0 NOMS HealthcareCANDIDA GLABRATANot detectedNOMS HealthcareCANDIDA VXFGCN6PAON HealthcareCANDIDA KRUSEINot detectedNOMS HealthcareCHLAMYDIA CWHWPSCHFQU1DSYS HealthcareCHLAMYDIA TRACHOMATISNot detectedNOMS HealthcareGARDNERELLA VAGINALIS0 NOMS HealthcareGARDNERELLA VAGINALISNot detectedNOMS HealthcareMEGASPHAERA (TYPES 1, 2)0NOMS HealthcareMEGASPHAERA (TYPES 1, 2)Not detectedNOMS Healthcare MYCOPLASMA QJTAWFSMJH6CVGJ HealthcareMYCOPLASMA GENITALIUMNot detectedNOMS HealthcareNEISSERIA SDVROKNQELB5JUSL HealthcareNEISSERIA GONORRHOEAENot detected NOMS HealthcareTRICHOMONAS EZZWAEWST7MUGU HealthcareTRICHOMONAS VAGINALISNot detectedNOMS HealthcareNOMS HealthcareUrinalysis macro (dipstick) panel (U)on 92-41-5402Wpcmsihsc, UANegativeNegative - 4(70) +++ mg/dLNOMS HealthcareBlood, UANegativeNegative - 50 Jerry/mcLNOND HealthcareClarity, UAClearNOMS Healthcare Color, UAYellowNOND HealthcareGlucose, UANegativeNegative - 2000(110) ++++ mg/dL [facility] HealthcareInterpretation and review of laboratory resultsAbnormalNOMS HealthcareKetones, UANegativeNegative - 160(16) ++++ mg/dLNOND Healthcare Leukocytes, UANegativeNegative - 500+++ Roberta/mcLNOMS HealthcareNitrite, UA NegativeNegative - PositiveNOMS HealthcarepH, UA15 - 9NOMS HealthcareProtein, UA NegativeNegative - 2000(20) ++++ mg/dLNOND HealthcareSpec Grav, UA1.0151 - 1.03 NOMS HealthcareUrobilinogen, UA0.20.2 - 12 mg/dLReplaced by [facility] BOX TESTon 05-02-6654JBT TEST SENT OUTYESFreeman Heart InstituteKzabugjktsHQP7VTGLMRZPK Healthcare BOXNOND HealthcareCLINISYNCNOMS HealthcareUS OB TRANSVAGINALon 08-26-0421VG OB TRANSVAGINALEXAM: US OB TRANSVAGINAL HISTORY: Viability. [...] II, MD, PHD at 08-Apr-2025 10:16:34 AM [facility] TeleradiologyNormalNot AvailableComment on above:Order Comment: US OB VIABILITY PLEASE PERFORM TRANSVAGINAL ULTRASOUND IF INDICATED Patient's last menstrual period was 01/25/2025.HCG ( test) Ql (U)on 98-67-5111Jxkognjszhyawg and review of laboratory resultsAbnormalNOND Healthcare Preg Test, UrPositiveNegativeNOMS HealthcareNOMS HealthcareUS OB TRANSVAGINALon 95-42-7724SG OB TRANSVAGINALFINDINGS: A single intrauterine gestational sac [...] gestational age. TRANSCRIBED BY: ELECTRONICALLY SIGNED BY: Yael RobersonNot AvailableComment on above:Order Comment: US OB TRANSVAGINAL No LMP recorded.Urinalysis macro (dipstick) panel (U)on 06-49-0780Xscfmdgig, UA NegativeNegative - 4(70) +++ mg/dLNOMS HealthcareBlood, UANegativeNegative - 50 Jerry/mcLNOMS HealthcareClarity, UAClearNOMS HealthcareColor, UAYellowNOMS HealthcareGlucose, UANegativeNegative - 2000(110) ++++ mg/dLNOMS Healthcare Interpretation and review of laboratory resultsNormalNOND HealthcareKetones, UA NegativeNegative - 160(16) ++++ mg/dLNOMS HealthcareLeukocytes, UANegative Negative - 500+++ Roberta/mcLNOMS HealthcareNitrite, UANegativeNegative - Positive NOMS HealthcarepH, UA65 - 9NOMS HealthcareProtein, UANegativeNegative - 2000(20) ++++ mg/dLNOMS HealthcareSpec Grav, UA1.0251 - 1.03NOMS HealthcareUrobilinogen, UA0.20.2 - 12 mg/dLNOMS HealthcareNOND HealthcareTBH PREG QUANT HCGon 02-27-2025 HCG YVEMCLRYTQSC818yBA/mLNOMS HealthcareComment on above:5-50 0.2-1 WEEK 50-500 1-2 WEEKS 100-5,000 2-3 WEEKS 500-10,000 3-4 WEEKS 1,000-50,000 4-5 WEEKS 10,000-100,000 5-6 WEEKS 15,000-200,000 6-8 WEEKS 10,000-100,000 2-3 MONTHS [facility]El[facility] HospitalTB PREG QUANT HCGon 03-41-4735GIJ FMTYTZTLOUJJ881kIZ/mL [facility] HealthcareComment on above:5-50 0.2-1 WEEK 50-500 1-2 WEEKS 100-5,000 2-3 WEEKS 500-10,000 3-4 WEEKS 1,000-50,000 4-5 WEEKS 10,000-100,000 5-6 WEEKS 15,000-200,000 6-8 WEEKS 10,000-100,000 2-3 MONTHS [facility]OEllett [facility] HospitalALL PROGESTERONEon 71-27-8453ZSGUAZPHYFZP62.3 ng/mL.[facility] HealthcareComment on above:Follicular phase 0.1 - 0.9 Luteal phase 1.8 - 23.9 Ovulation phase 0.1 - 12.0 First trimester 11.0 - 44.3 Second trimester 25.4 - 83.3 Third trimester 58.7 - 214.0 Postmenopausal 0.0 - 0.1 Performed at: [address] [id number] Electric Meter Repairer Apprentice: Evan Valenzuela PhD, Phone: [phone] [facility] CenterDHEAon 27-30-1470KJDK [Mass/Vol]139 ng/dLInvalid Interpretation Qffj90-378YisyrjPromedica Flower HospitalComment on above:Result Comment: This test was developed and its performance characteristics determined by [facility]. It has not been cleared or approved by the Food and Drug Administration. Performed at: [place] [id number] MD Everett MendozaiPerformed By: #### [id number] #### [facility] [address], [place] [address]Fxbhvjghmliprm 04-31-6311Drbrtxvrmomn Lvl5.59 ng/mLInvalid Interpretation CodePromedica Flower HospitalComment on above:Result Comment: 'F NON FOLLICULAR = 0.10 - 0.60' 'LUTEAL = 3.00 - 17.5' 'MIDLUTEAL = 3.30 - 18.6' 'POST-MENOPAUSE = 0.10 - 0.40' '-FIRST TRIMESTER = 8.30 - 66.5' 'SECOND TRIMESTER = 18.9 - 66.1' 'THIRD TRIMESTER = 35.8 - 312.4' 'MALES = 0.14 - 2.06'Performed By: #### [id number] #### [facility] [address], [place] [address]PE Pelvis Non-OB Completeon 50-46-7545WW Pelvis Non-OB Complete Exam Date/Time: 11/11/2024 12:54 [...] Desmond Quinteros MD Transcribed by: MARVA Technologist: SARATHOhioHealth Grady Memorial HospitalUS Transvaginal Non-OBon 74-81-1909AG Transvaginal Non-OBExam Date/Time: 11/11/2024 12:54 EST Reason for Exam: E28.2 Report See ultrasound pelvis non-OB for report of ultrasound pelvis transvaginal. Ordering Provider: Pee DEL RIO FINAL REPORT Dictated: 11/12/2024 12:14 pm Desmond Quinteros MD Signed (Electronic Signature): 11/12/2024 12:14 pm Signed by: Desmond Quinteros MD Transcribed by: MARVA Technologist: SARATHOhioHealth Grady Memorial HospitalAnti- Mullerian Hormone (AMH)on 50-31-1068Yoegqixom inhibiting substance [Mass/Vol] 5.77 ng/mLInvalid Interpretation [facility] HospitalComment on above:Result Comment: For assays employing antibodies, the possibility exists for interference by heterophile antibodies in the samples.1 1.Andre Reed Interferences in Immunoassays - still a threat. Clin. Chem. 2000; 46: 8038-6932. This test was developed and its performance characteristics determined by [facility]. It has not been cleared or approved by the Food and Drug Administration. Reference Range: Females 36 - 40y: 0.42 - 8.34 Median 1.69 AMH concentrations of >= 1.06 ng/mL is correlated with a better response to ovarian stimulation, produced more retrievable oocytes and higher odds of live according to Anjalier et al. Fertility and Sterility. 2010: 94:1009-7844. The current AMH test method correlates with [...] exclude an AMH-secreting ovarian tumor. Performed at: [facility] [address], [place] [id number] MD Rajeev Mckeonformed By: #### [id number] #### [facility] [address], [place] [address]PSMKld 29-23-1383FLVD [Mass/Vol]101 ng/dLInvalid Interpretation Ozux31-976ZentssPromedica Flower HospitalComment on above:Result Comment: This test was developed and its performance characteristics determined by [facility]. It has not been cleared or approved by the Food and Drug Administration. Performed at: [address] [id number] MD Everett Harleyformed By: #### [id number] #### [facility] [address], [place] [address]LBCADsb 65-16-6684TIQW-S [Mass/Vol]91.8 microgram/dLInvalid Interpretation Code57.3-279.2FProMedica Flower HospitalComment on above:Result Comment: Performed at: [address] [id number] PhD Bianca Blancoformed By: #### [id number] #### [facility] [address] [place] [address] 77[address]GVLnf 09-69-8391Sgdbshtvtxj Qn5.2 m[IU]/mLInvalid Interpretation CodePromedica Flower HospitalComment on above:Result Comment: Adult Female Range Follicular phase 3.5 - 12.5 Ovulation phase 4.7 - 21.5 Luteal phase 1.7 - 7.7 Postmenopausal 25.8 - 134.8 Performed at: [address] [id number] PhD Bianca Blancoformed By: #### [id number] #### [facility] [address], [place] [address]PAru 35-39-6604Ipwrdiwb Qn11.1 m[IU]/mLInvalid Interpretation CodePromedica Flower HospitalComment on above:Result Comment: Adult Female Range Follicular phase 2.4 - 12.6 Ovulation phase 14.0 - 95.6 Luteal phase 1.0 - 11.4 Postmenopausal 7.7 - 58.5 Performed at: [address] [id number] PhD Bianca Blancoformed By: #### [id number] #### [facility] [address], [place] [address]HrAM Quanton 98-04-3711JIW.beta subunit Qnm[IU]/mLNormal1-3 Prom[facility]ica Flower HospitalComment on above:Result Comment: 'F NON < 1 - 3' ' 0.2 - 1 WEEK = 5 TO 50' ' 1 - 2 WEEKS = 50 - 500' ' 2 - 3 WEEKS = 100 - 5000' ' 3 - 4 WEEKS = 500 - 73616' ' 4 - 5 WEEKS = 1000 - 86605' ' 5 - 6 WEEKS = 49531 - 158263' ' 6 - 8 WEEKS = 86689 - 489453' ' 8 - 12 WEEKS = 05869 - 295780'Performed By: #### [id number] #### [facility] [address], [place] [address]FXM w/ Auto Diffon 32-90-5059Ptrhxtwvs/100 WBC (Bld)0.6 %Normal 0.0-2.0Promedica Flower HospitalComment on above:Performed By: #### [id number] #### [facility] [address], [place] [address]Mnlvjhjqq/Leukocytes Auto (Bld) [Pure # fraction]0.0 E9/LNormal 0.0-0.2[facility]ri[facility] InstituteComment on above:Performed By: #### [id number] #### [facility] [address], [place] [address]Sjjyvrkjcay (Bld) [#/Vol]0.1 E9/LNormal0.0-0.5FProMedica Flower HospitalComment on above:Performed By: #### [id number] #### [facility] [address] [place] [address] 34174Kpmilqrwyja/100 WBC (Bld)0.7 %Normal0.0-8.0Promedica Flower HospitalComment on above:Performed By: #### [id number] #### [facility] [address] [place] [address] 72255Izgcykriuwi distribution width (RBC) [Ratio]14.0 %Normal 10.9-14.2FProMedica Flower HospitalComment on above:Performed By: #### [id number] #### [facility] [address] [place] [address] 01503Qkvjbvmass (Bld) [Volume fraction]44.7 %Sfqkkz44.0-46.0Promedica Flower HospitalComment on above:Performed By: #### [id number] #### [facility] [address] [place] [address] 90129Quejexqgtp (Bld) [Mass/Vol]15.0 g/tTIcylci13.0-16.0Promedica Flower HospitalComment on above:Performed By: #### [id number] #### [facility] [address] [place] [address] 904[address]Ancqamcachh (Bld) [#/Vol]2.3 E9/LNormal1.0-4.0Promedica Flower HospitalComment on above:Performed By: #### [id number] #### [facility] [address] [place] [address] 67877Rbfvrucvksz/100 WBC (Bld)26.2 %Mjnbfy20.0-50.0Prom[facility] Flower HospitalComment on above:Performed By: #### [id number] #### [facility] [address] [place] [address] 47315HFO (RBC) [Entitic mass]27.3 ldSksxmh64.0-34.0Prom[facility] Flower HospitalComment on above:Performed By: #### [id number] #### [facility] [address] [place] [address] 87985FYDI (RBC) [Mass/Vol]33.5 g/vNRqcqgs35.4-36.0Prom[facility] Flower HospitalComment on above:Performed By: #### [id number] #### [facility] [address] [place] [address] 03931TOC (RBC) [Entitic vol]81.3 tSIupjqf76.0-100.0Prom[facility] Flower HospitalComment on above:Performed By: #### [id number] #### [facility] [address] [place] [address] 25640Zfmyfmedz (Bld) [#/Vol]0.5 E9/LNormal0.2-1.0Prom[facility] Flower HospitalComment on above:Performed By: #### [id number] #### [facility] [address] [place] [address] 10141Uzurszjxiox (Bld) [#/Vol]5.7 E9/LNormal2.0-7.5FProMedica Flower HospitalComment on above:Performed By: #### [id number] #### [facility] [address] [place] [address] 25047Ckidzfwsxgg/100 WBC (Bld)66.3 %Gorehe15.0-75.0Prom[facility] Flower HospitalComment on above:Performed By: #### [id number] #### [facility] [address] [place] [address] 21087Cceargin mean volume (Bld) [Entitic vol]7.5 fLNormal6.4-10.8 [facility] Flower HospitalComment on above:Performed By: #### [id number] #### [facility] [address] [place] [address] 200[address]Fpouxrwrl (Bld) [#/Vol]302.0 E9/HTmxpgh138.0-500.0Prom[facility] Flower HospitalComment on above:Performed By: #### [id number] #### [facility] [address], [place] [address]XYC (Bld) [#/Vol]5.5 E12/LNormal4.3-5.9Prom[facility] Flower HospitalComment on above:Performed By: #### [id number] #### [facility] [address], [place] [address]SMB corrected for nucl RBC Auto (Bld) [#/Vol]8.6 E9/LNormal 4.0-11.0FishMt. Washington Pediatric HospitalComment on above:Performed By: #### [id number] #### [facility] [address], [place] [address]HREHUCWOURqlvhoy By: SYSTEM SYSTEM on 29-16-5893Bcdj T4 [Mass/Vol]0.89 ng/dLNormal0.58 - 1.64 ng/dLRemisol ChemHCG.beta subunit QnmIU/mL Normal1 - 3 mIU/mLRemisol ChemComment on above:Result Comment: 'F NON < 1 - 3' ' 0.2 - 1 WEEK = 5 TO 50' ' 1 - 2 WEEKS = 50 - 500' ' 2 - 3 WEEKS = 100 - 5000' ' 3 - 4 WEEKS = 500 - 08000' ' 4 - 5 WEEKS = 1000 - 34134' ' 5 - 6 WEEKS = 13477 - 669331' ' 6 - 8 WEEKS = 27327 - 122561' ' 8 - 12 WEEKS = 42534 - 219755'TSH Qn0.99 m[IU]/LNormal0.34 - 5.60 mcIU/mLRemisol ChemCHEMISTRYOrdered By: Catherine Armenta on 76-67-8008XpW6x (Bld) [Mass fraction]5.3 %Normal<=5.9%FT ChemAutoSSFree T4on 08-80-4618Wvfh T4 [Mass/Vol]0.89 ng/dLNormal0.58-1.64Prom[facility] Flower HospitalComment on above: Performed By: #### [id number] #### [facility] [address], [place] [address]LSYDSCCLZEFyjmphm By: SYSTEM SYSTEM on 93-07-1508Ijojpucwg/100 WBC (Bld)0.6 %Normal0.0 - 2.0 %Remisol HemeBasophils/Leukocytes Auto (Bld) [Pure # fraction]0.0 E9/LNormal0.0 - 0.2 E9/LRemisol HemeEosinophils (Bld) [#/Vol]0.1 E9/LNormal0.0 - 0.5 E9/LRemisol HemeEosinophils/100 WBC (Bld)0.7 %Normal0.0 - 8.0 %Remisol HemeErythrocyte distribution width (RBC) [Ratio]14.0 %Omqrqq23.9 - 14.2 %Remisol HemeHematocrit (Bld) [Volume fraction]44.7 %Bojlsa42.0 - 46.0 % Remisol HemeHemoglobin (Bld) [Mass/Vol]15.0 g/kDXolasi27.0 - 16.0 gm/dLRemisol HemeLymphocytes (Bld) [#/Vol]2.3 E9/LNormal1.0 - 4.0 E9/LRemisol Heme Lymphocytes/100 WBC (Bld)26.2 %Xeybuu07.0 - 50.0 %Remisol HemeMCH (RBC) [Entitic mass]27.3 tgLvxuuq16.0 - 34.0 pgRemisol HemeMCHC (RBC) [Mass/Vol]33.5 g/dL Vxqnii59.4 - 36.0 gm/dLRemisol HemeMCV (RBC) [Entitic vol]81.3 gZSekviu65.0 - 100.0 fLRemisol HemeMonocytes (Bld) [#/Vol]0.5 E9/LNormal0.2 - 1.0 E9/LRemisol HemeMonocytes/100 WBC (Bld)6.2 %Normal4.0 - 14.0 %Remisol HemeNeutrophils (Bld) [#/Vol]5.7 E9/LNormal2.0 - 7.5 E9/LRemisol HemeNeutrophils/100 WBC (Bld)66.3 % Jgsosp31.0 - 75.0 %Remisol HemePlatelet mean volume (Bld) [Entitic vol]7.5 fL Normal6.4 - 10.8 fLRemisol HemePlatelets (Bld) [#/Vol]302.0 E9/DVvaeiw600.0 - 500.0 E9/LRemisol HemeRBC (Bld) [#/Vol]5.5 E12/LNormal4.3 - 5.9 E12/LRemisol HemeWBC corrected for nucl RBC Auto (Bld) [#/Vol]8.6 E9/LNormal4.0 - 11.0 E9/L Remisol BowyWukJ1yke 65-90-2927OsL8n (Bld) [Mass fraction]5.3 %Normal<=5.9Prom[facility] Flower HospitalComment on above:Performed By: #### [id number] #### [facility] [address] [place] [address]Ckp Miscellaneous-LCon 81-96-1065Rhb Miscellaneousorderable testInvalid Interpretation CodePromedica Flower HospitalComment on above: Performed By: #### [id number] #### [facility] [address], [place] [address]Nuy MiscellaneousOrderable testInvalid Interpretation Code [facility] HospitalComment on above:Performed By: #### [id number] #### [facility] [address] [place] [address] 45[address]Lsb MiscellaneousOrderable testInvalid Interpretation Code [facility] HospitalComment on above:Performed By: #### [id number] #### [facility] [address], [place] [address]Fxyb Smfv12324Nirrhpz Interpretation [facility] HospitalComment on above:Performed By: #### [id number] #### [facility] [address], [place] [address]Ecgg Dgez481232Oawoxyq Interpretation [facility] HospitalComment on above:Performed By: #### [id number] #### [facility] [address], [place] [address]Qgmd NameDHEAInvalid Interpretation [facility] HospitalComment on above:Performed By: #### [id number] #### [facility] [address], [place] [address]Kmxn NameAMHInvalid Interpretation CodePromedica Flower HospitalComment on above:Performed By: #### [id number] #### [facility] [address], [place] [address]Isuunflzzt - Chemistry and Chemistry - challengeOrdered By: Maria Luisa Lutz on 68-35-7999Tpnnqs [Moles/Vol]12865 mmol/LInvalid Interpretation CodeCOMMUNITY HOSPITAL – [place] SendOutsSSNo Panel InformationOrdered By: Leia Foote on 76-73-8642Ctb Miscellaneousorderable testInvalid Interpretation CodeCOMMUNITY HOSPITAL – [place] SendOutsSSNo Panel InformationOrdered By: Maria Luisa Lutz on 50-77-2410Oiia Name DHEAInvalid Interpretation [facility] SendOutsSSReference Laboratory Testing Ordered By: Maria Luisa uLtz on 08-35-3519Vhhbtx [Moles/Vol]959409 mmol/LInvalid Interpretation CodeCOMMUNITY HOSPITAL – [place] SendOutsSSTest NameAMHInvalid Interpretation CodeCOMMUNITY HOSPITAL – [place] SendOutsSSTSHon 05-70-2505QNJ Qn0.99 m[IU]/LNormal0.34-5.60[facility] F[facility] HospitalComment on above:Performed By: #### [id number] #### [facility] [address], [place] [address]Iujcwm Medicine Office/Clinic Noteon 37-28-1195Loqdfy Medicine Office/Clinic NoteFaboston university medical center hospital Medicine Office/Clinic Note Chief Complaint Weight [...] DAYS., # 30 tab(s), Refills(s) 0, Pharmacy: [facility], 166,cm, 07/25/24 9:47:00 EST, Height/Length Dosing, 92.6, kg, ... Follow-up With When Contact Information ASHISH SEGOVIA CNP, FAM Within [address] [place] [phone] Business (1) Additional Instructions: Weight management [...] Recorded 2024-05-01: VIS DATE: 04/22/2021 SARS-CoV-2 (COVID-19) mRNAMUL.ORD![id number] 09/15/2022 Recorded influenza virus vaccine, inactivated 07/10/2022 Recorded 2024-05-01: NULL diphtheria/pertussis, acel/tetanus adult 02/06/2022 Recorded 2024-05-01: VIS DATE: 04/22/2021 influenza virus vaccine, inactivated 09/08/2021 Recorded SARS-CoV-2 (COVID-19) mRNA-1273 vaccine 09/08/2021 Recorded influenza virus vaccine, inactivated 06/29/2021 Rec (more content not included)...[facility] HospitalComment on above:Result Comment: Electronically Signed By: ASHISH SEGOVIA CNP\Date and Time Signed: 07/25/24 10:29 [facility] Medicine Office/Clinic Noteon 74-60-9636Bkmyhj Medicine Office/Clinic NoteFami Medicine Office/Clinic Note HPI [...] Refills(s) 0, Pharmacy: [facility], 166,cm, 07/02/24 11:29:00 EDT, Height/Length Dosing, 93.9, kg, 07/02... Follow-up With When Contact Information ASHISH SEGOVIA CNP, ALEKSANDER Within 4 weeks [address] [place] [address] Business (1) Additional Instructions: Weight [...] Recorded 2024-05-01: VIS DATE: 04/22/2021 SARS-CoV-2 (COVID-19) mRNAMUL.ORD![id number] 09/15/2022 Recorded influenza virus vaccine, inactivated 07/10/2022 Recorded 2024-05-01: NULL diphtheria/pertussis, acel/tetanus adult 02/06/2022 Recorded 2024-05-01: VIS DATE: 04/22/2021 influenza virus vaccine, inactivated 09/08/2021 Recorded SARS-CoV-2 (COVID-19) (more content not included)...[facility] HospitalComment on above:Result Comment: Electronically Signed By: ASHISH SEGOVIA CNP\.br\Date and Time Signed: 07/02/24 11:53 EDTAmbulatory Visit Summaryon 29-47-8639Miargquvdt Visit SummaryAmbulatory Visit Summary JASON CORONEL :1990 [...] you for choosing us for your care. [facility] Medicine Office/Clinic Noteon 03-80-0059Gteakb Medicine Office/Clinic NoteArbour-Hri [facility] Medicine Office/Clinic Note HPI Staff Jason is [...] Recorded 2024-05-01: VIS DATE: 04/22/2021 SARS-CoV-2 (COVID-19) mRNAMUL.ORD![id number] 09/15/2022 Recorded influenza virus vaccine, inactivated 07/10/2022 [...] acel/tetanus adult 05/11/2011 Recorde (more content not included)...[facility] HospitalComment on above:Result Comment: Electronically Signed By: LUCA REMY, ASHISH Armas\Date and Time Signed: 05/01/24 11:41 EDTCytology Cervical or vaginal smear or scraping studyon 06-54-4088ZJNP HealthcareAmbulatory Visit Summaryon 14-74-6698Nenhqtreyt Visit SummaryAmbulatory Visit Summary JASON WHITE :1990 Visit Date:03/25/2024 Ambulatory Visit Instructions Your Diagnosis Encounter for removal of intrauterine contraceptive device (IUD) BMI 32.0-32.9,adult Non-smoker Your Care Team Attending Physician - Daisha MILLER, Brianna Araujo Primary Care Physician - NICK REMY, JAMES [...] you for choosing us for your care. [facility] HospitalFaboston [facility] medical center hospital Medicine Office/Clinic Noteon 44-24-9383Yrbaat Medicine Office/Clinic NoteFaboston university medical center hospital Medicine Office/Clinic Note HPI Staff Jason [...] answered. RTC as needed Ordered: Removal IUD 34083 2. BMI 32.0-32.9,adult (Z68.32: Body mass index [...] Date Status influenza virus vaccine, inactivated 06/29/2020 RecordedNormalPromedica Flower HospitalComment on above:Result Comment: Electronically Signed By: Brianna Lawson\Date and Time Signed: 03/25/24 13:14 EDTCBC w/ Auto Diffon 74-21-8973Mgmsunlcd/100 WBC (Bld)0.5 %Normal0.0-2.0[facility] Comment on above:Performed By: #### [id number], [id number], 7587288, 2211536 #### [facility] [address] [place] [address] 32389Hyhlmugio/Leukocytes Auto (Bld) [Pure # fraction]0.0 E9/LNormal 0.0-0.2FProMedica Flower HospitalComment on above:Performed By: #### 1357271, 14880745, 3270723, 1095418 #### [facility] [address] [place] [address] 33792Ufwsogulopp (Bld) [#/Vol]0.1 E9/LNormal0.0-0.5FProMedica Flower HospitalComment on above:Performed By: #### 2766340, 86395809, 0286111, 7146993 #### [facility] [address] [place] [address] 11097Ylxwdwblvlo/100 WBC (Bld)0.8 %Normal0.0-8.0Prom[facility] Flower HospitalComment on above:Performed By: #### [id number], 47590794, 1690368, 6608789 #### [facility] [address] [place] [address] 97599Wgbaaovhcjf distribution width (RBC) [Ratio]13.6 %Normal 10.9-14.2FProMedica Flower HospitalComment on above:Performed By: #### 7763375, 08968245, 3719820, 8468537 #### [facility] [address] [place] [address] 05161Tkaafxetau (Bld) [Volume fraction]46.6 %High34.0-46.0Prom[facility] Flower HospitalComment on above:Performed By: #### 6403599, 12286934, 7819259, 7303731 #### [facility] [address] [place] [address] 08474Orxxbgqbfe (Bld) [Mass/Vol]15.6 g/cEMiqrgs56.0-16.0Prom[facility] F[facility] HospitalComment on above:Performed By: #### 7624681, 62163946, 5326522, 6201035 #### [facility] [address] [place] [address] 48737Quqgarycfow (Bld) [#/Vol]2.3 E9/LNormal1.0-4.0Prom[facility] Flower HospitalComment on above:Performed By: #### 4556644, 98794111, 4500031, 6691149 #### [facility] [address] [place] [address] 09944Lrwbsljfcoa/100 WBC (Bld)28.3 %Apjlgf48.0-50.0Prom[facility] Flower HospitalComment on above:Performed By: #### 8441725, 15829800, 0999176, 0863658 #### [facility] [address] [place] [address] 26667AEY (RBC) [Entitic mass]28.4 zjJdauqt52.0-34.0Prom[facility] F[facility] HospitalComment on above:Performed By: #### 7864492, 43427546, 4529816, 6323572 #### [facility] [address] [place] [address] 10519UIKG (RBC) [Mass/Vol]33.5 g/lZIsptqc34.4-36.0[facility] F[facility] HospitalComment on above:Performed By: #### 3078662, 19882199, 5992280, 1514525 #### [facility] [address] [place] [address] 91412BNP (RBC) [Entitic vol]84.7 yCLmzosn88.0-100.0Prom[facility] Flower HospitalComment on above:Performed By: #### 2424377, 15567158, 3806877, 5630526 #### [facility] [address] [place] [address] 08973Hxmlevecf (Bld) [#/Vol]0.6 E9/LNormal0.2-1.0Prom[facility] Flower HospitalComment on above:Performed By: #### 8833002, 52849044, 9100853, 4017314 #### [facility] [address] [place] [address] 55139Urhuzbogapb (Bld) [#/Vol]5.2 E9/LNormal2.0-7.5FProMedica Flower HospitalComment on above:Performed By: #### 5860320, 41090588, 0899721, 0666330 #### [facility] [address] [place] [address] 21776Vkvbmaewpux/100 WBC (Bld)63.4 %Ursbzo00.0-75.0Prom[facility] F[facility] HospitalComment on above:Performed By: #### 0734683, 93005624, 2850031, 2852897 #### [facility] [address] [place] [address] 27021Wxieenam mean volume (Bld) [Entitic vol]7.1 fLNormal6.4-10.8 [facility]lower HospitalComment on above:Performed By: #### 5837314, 32921167, 6175440, 0207244 #### [facility] [address] [place] [address] 06778Xqlwxosga (Bld) [#/Vol]287.0 E9/FPppyxu775.0-500.0Prom[facility] F[facility] HospitalComment on above:Performed By: #### 3622027, 79762922, 3148891, 5031840 #### [facility] [address] [place] [address] 39388DQP (Bld) [#/Vol]5.5 E12/LNormal4.3-5.9Prom[facility] Flower HospitalComment on above:Performed By: #### 9332215, 12072164, 5073423, 5836834 #### [facility] [address] [place] [address] 17870PEP corrected for nucl RBC Auto (Bld) [#/Vol]8.2 E9/LNormal 4.0-11.0[facility] F[facility] HospitalComment on above:Performed By: #### 9349911, 03027585, 8861043, 0867143 #### [facility] [address], [place] [address]YAKsm 30-61-0102Pemyari [Mass/Vol]9.2 mg/dLNormal8.9-11.1FProMedica Flower HospitalComment on above:Performed By: #### 6913395, 49453182, 3928351, 2455294 #### [facility] [address], [place] [address]Qbjavkri [Moles/Vol]105 mmol/LGcuaol423-478RdryfuPromedica Flower HospitalComment on above:Performed By: #### 5742343, 41940963, 9513695, 4536334 #### [facility] [address], [place] [address]Ctmvkud [Mass/Vol]89 mg/xVOwihap96-070PacghdPromedica Flower HospitalComment on above:Performed By: #### 3118677, 87210793, 7555092, 9378705 #### [facility] [address], [place] [address]Irfcljimh [Moles/Vol]3.9 mmol/LNormal3.5-5.3FProMedica Flower HospitalComment on above:Performed By: #### 1864545, 16032725, 2679706, 8963823 #### [facility] [address], [place] [address]Plogwv [Moles/Vol]138 mmol/RPadkeq968-377RhkljlPromedica Flower HospitalComment on above:Performed By: #### 0145196, 64611469, 0202413, 5216799 #### [facility] [address], [place] [address]Rund nitrogen [Mass/Vol]15 mg/dLNormal5-21Prom[facility] F[facility] HospitalComment on above:Performed By: #### 0344036, 99912588, 1478630, 3209255 #### [facility] [address], [place] [address]Nftzi gap [Moles/Vol]12 mmol/LNormal6-16Prom[facility] Flower HospitalComment on above:Performed By: #### 2933145, 05395370, 9138588, 8299412 #### [facility] [address] [place] [address] 44[address]YQ9 [Moles/Vol]25 mmol/MIdscfz82-19YrzoooPromedica Flower Hospital Comment on above:Performed By: #### [id number], [id number], 7594258, [id number] #### [facility] [address], [place] [address]Urymooduxj [Mass/Vol]0.7 mg/dLNormal0.5-1.3Fisher Kennedy Krieger InstituteComment on above:Performed By: #### [id number], [id number], 8601910, 2578903 #### [facility] [address] [place] [address] 935[address]Lccg nitrogen/Creatinine [Mass ratio]21 No VokawFcyc12-32JkohmdPromedica Flower HospitalComment on above:Performed By: #### [id number], [id number], 5149142, 5183613 #### [facility] [address] [place] [address] 38635Wroqtcp [Mass/Vol]4.3 g/dLNormal3.3-5.0Prom[facility] Flower HospitalComment on above:Performed By: #### [id number], 21112146, 6744247, 6191434 #### [facility] [address] [place] [address] 31837Wnalrrs/Globulin (S) [Mass conc ratio]1.7Fbeeaz0.1-2.2[facility] Kennedy Krieger InstituteComment on above:Performed By: #### [id number], 66225340, 8883823, 5802768 #### [facility] [address] [place] [address]95[address]UIS [Catalytic activity/Vol]64 Int._Unit/VKlzjvo58-06TdkhkkPromedica Flower HospitalComment on above:Performed By: #### [id number], 63634751, 3895669, 2077229 #### [facility] [address], [place] [address]SUU No additional P-5'-P [Catalytic activity/Vol]11 Int._Unit/L Normal6-46Prom[facility] Flower HospitalComment on above:Performed By: #### [id number], 13896920, 1186893, 2367721 #### [facility] [address] [place] [address] 86605FVZ [Catalytic activity/Vol]13 Int._Unit/LNormal5-43Prom[facility] Flower HospitalComment on above:Performed By: #### [id number], 81840011, 3741718, 5871583 #### [facility] [address] [place] [address] 933[address]Xoftxhwaz [Mass/Vol]0.5 mg/dLNormal0.0-1.1FProMedica Flower HospitalComment on above:Performed By: #### 3191041, 27308060, 3019929, 7261893 #### [facility] [address] [place] [address] 325[address]Fkcyycuq (S) [Mass/Vol]3.1 g/dLNormal1.4-4.0Prom[facility] Flower HospitalComment on above:Performed By: #### [id number], 01852307, 3620424, 2569551 #### [facility] [address] [place] [address] 880[address]Ewucbaz [Mass/Vol]7.4 g/dLNormal6.0-7.8Prom[facility] Flower HospitalComment on above:Performed By: #### 8943269, 00204974, 1545911, 8859150 #### [facility] [address] [place] [address] 26[address]Frmgwnt for Treatmenton 94-28-0958Nwnkvyu for Treatment [id number]#1.00TIFFNormalPromedica Flower HospitalLipid Panelon 61-36-1724Tnthqqakfys [Mass/Vol]206 mg/oQAnnl147-352TndhzqPromedica Flower HospitalComment on above:Performed By: #### 0086348, 24150263, 5611292, 4885203 #### [facility] [address], [place] [address]Anplunowuza in HDL [Mass/Vol]58 mg/dLInvalid Interpretation CodePromedica Flower HospitalComment on above:Result Comment: '>= 60 LOW RISK' '<= 40 HIGH RISK'Performed By: #### [id number], 34508822, 5647366, 8614125 #### [facility] [address], [place] [address]Kwjeylqvhms in LDL [Mass/Vol]150 mg/dLHigh<=129Prom[facility]ica Flower HospitalComment on above:Performed By: #### 3486083, 30467440, 6198208, 6847005 #### [facility] [address], [place] [address]Zmdxnifuwww in VLDL [Mass/Vol]16 mg/dLNormal7-40Prom[facility] Flower HospitalComment on above:Performed By: #### 1991387, 90917865, 5041229, 2990544 #### [facility] [address], [place] [address]Rbthhrvfhyrg [Mass/Vol]79 mg/dLNormal<=149Prom[facility] Flower HospitalComment on above:Performed By: #### 2555022, 12453076, 7277456, 8898578 #### [facility] [address], [place] [address]Bqluehntd Orderon 68-99-0800Yeevetoqt Order [id number]#1.00TIFFNormalPromedica Flower HospitaleGFRon 00-41-0187hEOJ138 mL/min/1.73 t0Cwzuxz>=59Prom[facility] Flower HospitalComment on above:Order Comment: Order added by Discern Expert.Performed By: #### [id number], 25940624, 1133235, 9241418 #### [facility] [address] [place], [place] [address]TPA With Platelet and Differentialon 05-40-2946Yuhelilkr (Bld) [#/Vol]0.1 10*3/uLNormal0.0-0.2MSterling Regional MedCenterComment on above: Performed By: #### CBCWD #### [facility] [address] [place] [address] Tktcyzrmg/100 WBC (Bld)0.7 %[facility] Comment on above:Performed By: #### CBCWD #### [facility] [address] [place] [address] Kgzjyovtblh (Bld) [#/Vol]0.1 10*3/uLNormal0.0-0.7[facility] HospitalComment on above:Performed By: #### CBCWD #### [facility] [address] [place] [address] Ipbxnfsetbb/100 WBC (Bld)1.0 %[facility] Comment on above:Performed By: #### CBCWD #### [facility] [address] [place] [address] Cfreppmfwcm distribution width (RBC) [Ratio]13.5 %Tacrla46.5-14.5 [facility] HospitalComment on above:Performed By: #### CBCWD #### [facility] [address] [place] [address] Yenpgwipes (Bld) [Volume fraction]44.1 %Oboqaz56.0-47.0[facility] HospitalComment on above:Performed By: #### CBCWD #### [facility] [address] [place] [address] Wmlhptisnp (Bld) [Mass/Vol]14.9 g/mHAkbxvi98.0-16.0[facility] HospitalComment on above:Performed By: #### CBCWD #### [facility] [address] [place] [address] Uuwaqxflerd (Bld) [#/Vol]2.3 10*3/uLNormal1.0-4.8[facility] HospitalComment on above:Performed By: #### CBCWD #### [facility] [address] [place] [address] Tsleiaorsvo/100 WBC (Bld)28.7 %[facility] Comment on above:Performed By: #### CBCWD #### [facility] [address] [place] [address] MVM (RBC) [Entitic mass]28.4 ycKcrnei95.0-31.3MSterling Regional MedCenterComment on above:Performed By: #### CBCWD #### [facility] [address] [place] [address] KHFT41.8 %Kzpqzf74.0-37.0[facility] HospitalComment on above:Performed By: #### CBCWD #### [facility] [address] [place] [address] SSY (RBC) [Entitic vol]84.2 dCVprgup39.4-94.8[facility] HospitalComment on above:Performed By: #### CBCWD #### [facility] [address] [place] [address] Veltbhxwc (Bld) [#/Vol]0.5 10*3/uLNormal0.2-0.8[facility] HospitalComment on above:Performed By: #### CBCWD #### [facility] [address] [place] [address] Bdjkowsnx/100 WBC (Bld)6.8 %[facility] Comment on above:Performed By: #### CBCWD #### [facility] [address] [place] [address] Ndzilrqussr (Bld) [#/Vol]5.0 10*3/uLNormal1.4-6.5[facility] HospitalComment on above:Performed By: #### CBCWD #### [facility] [address] [place] [address] Zykomuxmkwd/100 WBC (Bld)62.8 %NormalKit Carson County Memorial Hospital Comment on above:Performed By: #### CBCWD #### [facility] [address] [place] [address] Mqzxmtlme (Bld) [#/Vol]271 10*3/kBGqrqdy824-155VmhfmKit Carson County Memorial HospitalComment on above:Performed By: #### CBCWD #### [facility] [address] [place] [address] UNJ (Bld) [#/Vol]5.23 10*6/uLNormal4.20-5.40[facility] HospitalComment on above:Performed By: #### CBCWD #### [facility] [address] [place] [address] MTQ (Bld) [#/Vol]7.9 10*3/uLNormal4.8-10.8[facility] HospitalComment on above:Performed By: #### CBCWD #### [facility] [address] [place] [address] Kwxfrdzdbwcpo Metabolic Panelon 65-56-3918Oybpllb [Mass/Vol]4.3 g/dL Normal3.5-4.6MSterling Regional MedCenterComment on above:Performed By: #### CMP #### [facility] [address] [place] [address] DGO [Catalytic activity/Vol]72 U/JHkitoq65-899KmrsxKit Carson County Memorial HospitalComment on above:Performed By: #### CMP #### [facility] [address] [place] [address] STZ [Catalytic activity/Vol]15 U/LNormal0-33[facility] HospitalComment on above:Performed By: #### CMP #### [facility] [address] [place] [address] Hmsbu gap [Moles/Vol]12 mmol/LNormal9-15[facility] HospitalComment on above:Performed By: #### CMP #### [facility] [address] [place] [address] SMD [Catalytic activity/Vol]19 U/LNormal0-35[facility] HospitalComment on above:Performed By: #### CMP #### [facility] [address] [place] [address] Thorhwlii [Mass/Vol]0.3 mg/dLNormal0.2-0.7[facility] HospitalComment on above:Performed By: #### CMP #### [facility] [address] [place] [address] Xptgowa [Mass/Vol]9.3 mg/dLNormal8.5-9.9[facility] HospitalComment on above:Performed By: #### CMP #### [facility] [address] [place] [address] Jhpbkrcd [Moles/Vol]104 mmol/UBwtnxi53-874NjbbsKit Carson County Memorial HospitalComment on above:Performed By: #### CMP #### [facility] [address] [place] [address] ZV2 [Moles/Vol]26 mmol/KQvxufe09-77MsxqsKit Carson County Memorial Hospital Comment on above:Performed By: #### CMP #### [facility] [address] [place] [address] Oalbolazsu [Mass/Vol]0.73 mg/dLNormal0.50-0.90[facility] HospitalComment on above:Performed By: #### CMP #### [facility] [address] [place] [address] CXO>60.0Normal>60[facility] HospitalComment on above: Result Comment: Pediatric calculator link [...] renal tubular secretion.Performed By: #### CMP #### [facility] [address] [place] [address] Cosijqtq (S) [Mass/Vol]2.8 g/dLNormal2.3-3.5[facility] HospitalComment on above:Performed By: #### CMP #### [facility] [address] [place] [address] Bkrlsti [Mass/Vol]90 mg/xRIjkmzw57-29SmjuiSterling Regional MedCenter Comment on above:Performed By: #### CMP #### [facility] [address] [place] [address] Iloumzotd [Moles/Vol]4.2 mmol/LNormal3.4-4.9[facility] HospitalComment on above:Performed By: #### CMP #### [facility] [address] [place] [address] Xoqcilw [Mass/Vol]7.1 g/dLNormal6.3-8.0[facility] Comment on above:Performed By: #### CMP #### [facility] [address] [place] [address] Mqywih [Moles/Vol]142 mmol/UGbcmgh692-850CoondKit Carson County Memorial HospitalComment on above:Performed By: #### CMP #### [facility] [address] [place] [address] Hwav nitrogen [Mass/Vol]12 mg/dLNormal6-20[facility] HospitalComment on above:Performed By: #### CMP #### [facility] [address] [place] [address] Ofkvz Panelon 44-81-8460Zmuyokwdwca [Mass/Vol]221 mg/dLCritically high0-199Kit [facility] Memorial HospitalComment on above:Result Comment: ATP III Cholesterol Classification is Borderline High.Performed By: #### LIPID #### [facility] [address] [place] [address] Mkufjczvanb in HDL [Mass/Vol]51 mg/vYXgsist87-82TfeniKit Carson County Memorial HospitalComment on above:Result Comment: ATP III HDL Cholesterol Classification is Desirable. Expected Values: Males: >55 = No Risk 35-55 = Moderate Risk <35 = High Risk Females: >65 = No Risk 45-65 = Moderate Risk <45 = High Risk NCEP Guidelines: Third Report January 2001 >59 = negative risk factor for CHD <40 = major risk factor for CHDPerformed By: #### LIPID #### [facility] [address] [place] [address] Efjltbrunpr in LDL [Mass/Vol]149 mg/dLCritically high0-129[facility] HospitalComment on above:Result Comment: ATT III Classification is Borderline High.Performed By: #### LIPID #### [facility] [address] [place] [address] Hysjywwtpook [Mass/Vol]105 mg/dLNormal0-150Kit [facility] Memorial HospitalComment on above:Result Comment: ATP III Triglycerides Classification is Normal.Performed By: #### LIPID #### [facility] [address] [facility] [address] JHBOkx 92-91-4747TUSOUsofdaljj (OPHTNR) JASON WHITE ([id number]) 1990 F Date Time Provider Department 10/18/21 [...] Assessed Reason for Visit: Contact Lens Question [3260] Prescriptions as of 10/18/2021 - triamcinolone acetonide [...] 08/08/2006 Encounter Status:Closed by JENNIE GAMEZ on 10/18/21NoMer[facility] (COVID-19) RT-PCRon 58-60-5520BMZG-CoV-2 (COVID-19) RNA OLGA+probe Ql (Unsp spec)PositiveAbnoGalion Community HospitalComment on above:Order Comment: EmployeeResult Comment: POSITIVE: SARS-CoV-2 [...] Authorization (EUA) and has been verified by [facility]. 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 - Documentation and care coordination: -- minutes.NormalCommunity Regional Medical CenterQuantiferon TB Goldon 60-52-4472Vyliaouzaia TB GoldIndeterminateNormal NegativeCommunity Regional Medical CenterComment on above:Result Comment: An Indeterminate [...] address questions to Dr. Alexander Jaimes or [email or web address] Testing Performed: [employer]. [address] [place] [address]Pwpjqmulv By: #### QUTBG #### [address] [address] DSNXK, LUMBOSACRAL; MIN 4 VIEWSon 01-89-5610LFKHJ, LUMBOSACRAL; MIN 4 VIEWSMRN: [id number] Name: JASON WHITE STUDY:SPINE, LUMBOSACRAL; MIN 4 VIEWS; 10/08/2017 10:50 am INDICATION:Signs/Symptoms: Lower lumbar tenderness. COMPARISON:None. ORDERING CLINICIAN:GIOVANY JOSUE FINDINGS:Alignment: AP alignment is maintained Disc levels: Maintained Bony structures: The bony structures are intact there however doesappear to be partial lumbarlumbarization of the S1 vertebral body,presumed for nomenclature. Other findings: None significant IMPRESSION:Unremarkable exam.Electronically signed by: KIN DELGADO MDPaynesville Hospital Vital Signs Date TimeVital SignValuePerforming DzmlgazlyTbrdqzni06-90-8492 08:35-0400Body evdotj452.15 kgCorey Eliane DO Work Phone: [facility] InstituteHuhaydzuif63-92-8907 08:35-0400Diastolic blood mm[Hg]Pee Eliane DO Work Phone: [facility] InstituteQsdydbazdc86-20-7992 08:35-0400Systolic blood ffvyiray269 mm[Hg]Pee Eliane DO Work Phone: [phone] [place], [place] [address]Divjffbvom89-13-6376 09:16-0400Body mkfzur80.56 kgCorey Eliane DO Work Phone: [facility] InstituteIjbodtjkhp43-19-2501 09:16-0400Diastolic blood savwbwtz49 mm[Hg]Pee Eliane DO Work Phone: [facility] InstituteRmxpateyyb08-46-4316 09:16-0400Systolic blood pdmbkfla854 mm[Hg]Pee Eliane DO Work Phone: [facility] InstituteVibaixflhm77-59-4313 10:11-0400Body bmtkka67.79 kgCorey Eliane DO Work Phone: [facility] InstituteVvvrqjssxv69-34-2135 10:11-0400Diastolic blood mm[Hg]Pee Eliane DO Work Phone: [facility] InstituteEebamqombb76-39-4928 10:11-0400Systolic blood stsmtlfi886 mm[Hg]Pee Eliane DO Work Phone: [facility] InstituteEuunmgzamk79-97-3049 10:39-0400Body mjlqba33.97 [facility] 10:39-0400Diastolic blood mm[Hg] [facility]07-11-2025 10:39-0400Systolic blood mm[Hg] [facility]02-18-2025 08:39-0500Body pejrpl20.88 kgCorey Eliane DO Work Phone: [facility] InstituteTafjueonge95-47-0983 08:39-0500Diastolic blood uvkxzptk90 mm[Hg]Pee Eliane DO Work Phone: [facility] InstituteGtdsaelysc88-34-3466 08:39-0500Systolic blood ulfowsws122 mm[Hg]Pee Eliane DO Work Phone: [facility] Healthcare Encounters Encounter DateEncounter TypeCare ProviderFacilityStart: 07-21-2025 End: 05-14-0111Egznwhnyq Result EncounterCorey Eliane DO Work Phone: [facility] External Department UnsolicitedStart: 07-21-2025 End: 12-65-4890Czgfkjomo Result EncounterCorey Eliane DO Work Phone: noMS External Department UnsolicitedStart: 07-07-2025 End: 20-76-5018Ajtvof flowsheetCorey Eliane DO Work Phone: [facility] OBGYNStart: 07-07-2025 End: 84-58-3715Bbsvmd flowsheetCorey Eliane DO Work Phone: [facility] [place] OBGYNStart: 07-07-2025 End: 67-54-9536Sockhbvx flow sheetCorey Eliane DO Work Phone: noms Earle OBGYNComment on above:23 weeks gestation of ([facility]); Second trimester ([facility]); Diabetes mellitus screening; 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[facility]); Advanced maternal age, primigravida, antepartum ([facility])Start: 07-07-2025 End: 65-28-5522prqydibqevIKXYF FAZIONot AvailableStart: 06-24-2025 End: 11-13-3866hrasyfmnzjSKPBEN WILLIAMDOMINGAFacility:FT FM BellevueStart: 06-16-2025 End: 08-60-6279Fdamipaomu hospital visit by physicianMoisés Flores Obgynimg Ultrasound [facility] on above:Encounter for supervision of normal , unspecified, unspecified trimester ([facility])Start: 06-15-2025 End: 67-50-5290Uwebzvraw Result EncounterCorey Eliane DO Work Phone: noms External Department UnsolicitedStart: 06-15-2025 End: 80-71-5880Qwlivvfbi Result EncounterCorey Eliane DO Work Phone: noms External Department UnsolicitedStart: 06-09-2025 End: 68-40-1814Rtmhsf flowsheetCorey Eliane DO Work Phone: [facility] OBGYNStart: 06-09-2025 End: 72-34-0589Eqnkod flowsheetCorey Eliane DO Work Phone: [facility] OBGYNStart: 06-09-2025 End: 55-07-1994Islrbarr flow sheetCorey Eliane DO Work Phone: [facility] OBGYNComment on above:Second trimester ([facility]); 19 weeks gestation of ([facility]); NauseaStart: 06-09-2025 End: 33-80-4204dmfgulohqzFIULL FAZIONot AvailableStart: 06-03-2025 End: 26-41-1251jivsxnpfjhHFQARZ A LEHMANNFacility:FT FM BellevueStart: 06-01-2025 End: 61-47-3272fymuivpukdHSDSGL A LEHMANNFacility:FTMCStart: 05-20-2025 End: 51-85-9571wwdibmkwsnMOHXSF A LEHMANNFacility:FT FM BellevueStart: 05-19-2025 End: 14-33-1492Dscusbjqi Result EncounterCorey Eliane DO Work Phone: [facility] External Department UnsolicitedStart: 05-19-2025 End: 36-09-1286Lxqticdvz Result EncounterCorey Eliane DO Work Phone: [facility] External Department UnsolicitedStart: 05-12-2025 End: 13-29-3196Eexoqb flowsheetCorey Eliane DO Work Phone: [facility] OBGYNStart: 05-12-2025 End: 68-92-7303Zlioil flowsheetCorey Eliane DO Work Phone: [facility] OBGYNStart: 05-12-2025 End: 55-85-8368Abserxzft Result EncounterCorey Eliane DO Work Phone: noMS External Department UnsolicitedStart: 05-12-2025 End: 72-52-0383Cakzcigv Result EncounterCorey Eliane DO Work Phone: NORL External Department UnsolicitedStart: 05-12-2025 End: 83-42-7036Dtqyuqd encounter procedureCorey Eliane DO Work Phone: [facility] HealthcareStart: 05-12-2025 End: 63-03-4472Yolzbfcd preventive med est patient 18-39 yrsCorey Eliane DO Work Phone: [facility] Earle OBGYNComment on above:Screening, , for anatomic survey ([facility]); Well woman exam with routine gynecological exam; Second trimester ([facility]); 15 weeks gestation of ([facility]); STD exposure; NauseaStart: 05-12-2025 End: 72-81-0078kgvldjlcqxSWQYT FAZIONot AvailableStart: 05-05-2025 End: 67-17-9320Byhyjmksw Result EncounterCorey Eliane DO Work Phone: NOCI External Department UnsolicitedStart: 05-05-2025 End: 15-61-8777Dvutjoozk Result EncounterCorey Eliane DO Work Phone: noms External Department UnsolicitedStart: 04-21-2025 End: 22-78-1513Mxsvyq flowsheetCorey Eliane DO Work Phone: [facility] OBGYNStart: 04-21-2025 End: 04-85-9534Lvfehy flowsheetCorey Eliane DO Work Phone: [facility] OBGYNStart: 04-21-2025 End: 12-40-6578Rvygbnsh flow sheetCorey Eliane DO Work Phone: [facility] Earle OBGYNComment on above:First trimester ([facility]); 13 weeks gestation of ([facility])Start: 04-21-2025 End: 15-10-6978wmyglkrslzKKOAO FAZIONot AvailableStart: 04-07-2025 End: 91-73-9295lehzwzcjqwMSZSF FAZIONot AvailableStart: 03-27-2025 End: 04-19-1596Iilkea outpatient visit 5 minutesFameagan Nurse Noms Bcp ObNOMS BCP OBComment on above:GA: 9m3aOnpdd: 03-27-2025 End: 08-01-1414pjzfcvfrwtUMCFO FAZIONot AvailableStart: 02-27-2025 End: 80-75-2359Xqugloggc Result EncounterCorey Eliane DO Work Phone: noms External Department UnsolicitedStart: 02-27-2025 End: 45-72-8712Lmczneibj Result EncounterCorey Eliane DO Work Phone: noms External Department UnsolicitedStart: 02-25-2025 End: 02-77-6652Nnhupssgq Result EncounterCorey Eliane DO Work Phone: noms External Department UnsolicitedStart: 02-25-2025 End: 25-23-7004Ioftriyjs Result EncounterCorey Eliane DO Work Phone: noms External Department UnsolicitedStart: 02-14-2025 End: 80-70-6735Nsskyycuy Result EncounterCorey Eliane DO Work Phone: noms External Department UnsolicitedStart: 02-14-2025 End: 40-85-1691Hihdvcfii Result EncounterCorey Eliane DO Work Phone: noms External Department UnsolicitedStart: 01-20-2025 End: 36-41-0326wvrgtfmbshNebjn R FAZIOFacility:FTMCStart: 12-22-2024 End: 60-79-1650igtbspuskpJjblr R FAZIOFacility:FTMCStart: 12-22-2024 End: 18-99-5988Bas Drop offCorey R ELIANE [facility] Start: 11-24-2024 End: 42-01-1491Snt Drop offJodi L Daisha [facility] Start: 11-24-2024 End: 29-81-0964doqybfdfdcUxrr L SchwabFacility:FTMCStart: 11-11-2024 End: 50-02-1428fjgavixvreBgfeo R FAZIOFacility:FTMCStart: 11-11-2024 End: 97-09-1034Ezgbllp encounter procedureCorey R ELIANE [facility] Start: 11-05-2024 End: 50-80-5990Jfr Drop offCorey R ELIANE [facility] Start: 11-05-2024 End: 00-49-9231jbrpcuswmtWMMYQO M MADDOCKFacility:FT FM BellevueStart: 11-04-2024 End: 64-32-7238Efxhgx flowsheetCorey Eliane DO Work Phone: noms BCP OBStart: 11-04-2024 End: 76-09-8790Eocqfk flowsheetCorey Eliane DO Work Phone: NOZB BCP OBStart: 11-04-2024 End: 46-91-6001Axkyhe outpatient visit 15 minutesCorey Eliane DO Work Phone: noms BCP OBComment on above:Encounter for infertility; PCOS (polycystic ovarian syndrome); Abnormal uterine bleeding (AUB); Hormone disorderStart: 11-04-2024 End: 75-65-3651azvghliwtmVBCWY FAZIONot AvailableStart: 07-25-2024 End: 44-14-5445fvffojotjdMAVHSK M MADDOCKFacility:FT FM BellevueStart: 07-02-2024 End: 60-06-1665qfnznhklmvNNLSZV M MADDOCKFacility:FT FM BellevueStart: 07-02-2024 End: 89-44-7144ztehrbkvpeXNC ASHISH SEGOVIAFacility:FT FM BellevueStart: 05-01-2024 End: 18-26-7884jqosizokgvZHB ASHISH A LEANAANNFacility:FT BellevueStart: 04-22-2024 End: 07-06-7291ypqhztkoeqJAX RAMEYNot AvailableStart: 03-25-2024 End: 08-41-7816ktpbnrjhwbVcxp L SchwabFacility:FT BellevueStart: 01-12-2024 End: 07-31-2754ykhvyutfolQMFWGI M MADDOCKFacility:FTMCStart: 06-08-2022 End: 46-54-9294hrhchqrllwWARBNW E WILSONFacility:[facility] Hospitaltart: 06-08-2022 End: 35-65-0268Dlxgxbg encounter procedureStedavid Mccarthy MD Work Phone: OphthalmologyComment on above:Myopic astigmatism of both eyes (Primary Dx); Refractive errorStart: 10-12-2021 End: 03-27-5928dvmbzuxluuVWSI YARHAMFacility:[place] [facility]: 35-98-7110Pbhqoz OnlyAbby Yarham OD Work Phone: OphthalmologyStart: 12-45-6371ItyfvqbqaxLivdzih Jose M PipitoneFacility:[facility] Procedures DateProcedureProcedure DetailPerforming ClinicianStart: 83-26-1208HFZ CBC WITH AUTO DIFFCorey Eliane DO Work Phone: Start: 83-91-4281Fvnzi dip stick/tablet rgnt non-auto w/o micrscpCorey Eliane DO Work Phone: Start: 80-50-7758Eb preg uterus w/detail fabrice 1st gestationCorey Randolph Eliane DO Work Phone: Start: 82-91-5667Fw preg uterus w/detail fabrice 1st gestationCorey Eliane DO Work Phone: Start: 85-58-7730Ukdor dip stick/tablet rgnt non-auto w/o micrscpAaster NEW Work Phone: Start: 26-15-3925DVS, SERUM, OPEN SPINA BIFIDACorey Eliane DO Work Phone: Start: 64-47-2134GEKIMMFFK VAGINITIS (HTRX)Pee Eliane DO Work Phone: Start: 67-25-6620Kzqta dip stick/tablet rgnt non-auto w/o micrscpCorey Eliane DO Work Phone: Start: 28-38-7458XSG,APTIMA HPV,AGE GDLNCorey Eliane DO Work Phone: Start: 60-34-9045Tkoqtvwctyx observation [Identifier] in Cervix by Cyto stainCorey Eliane DO Work Phone: Start: 22-97-7211JOK TESTCorey Eliane DO Work Phone: Start: 92-66-6546Amaxn dip stick/tablet rgnt non-auto w/o micrscpCorey Eliane DO Work Phone: Start: 72-85-0564IWZ PREG QUANT HCGCorey Eliane DO Work Phone: Start: 70-16-5386OZQ PREG QUANT HCGCorey Eliane DO Work Phone: Start: 06-87-2737YIC PROGESTERONECorey Eliane DO Work Phone: Start: 44-01-5735Imlmuzrnbgy observation [Identifier] in Cervix by Cyto stainCorey Eliane DO Work Phone: Start: 42-76-9830Qkic cerv/vag auto thin layer prep mnl screenAmy Kendra NEW Work Phone: cyst (disorder)Pee ELIANE Insertion of intrauterine contraceptive deviceCorey Zoom Plan of Treatment DateCare ActivityDetailAuthorStart: 43-29-9955Xlgehd Vaccines (1 of 2)Zoster Vaccines (1 of 2)[facility]: 65-75-1353KTxM/Tdap/Td Vaccines (3 - Td or Tdap)DTaP/Tdap/Td Vaccines (3 - Td or Tdap)[facility]: 74-67-7350Lnuzoncvp for malignant neoplasm of cervixNOEllett Memorial HospitalStart: 84-60-8586Ddwckdful for malignant neoplasm of cervix Pap SmearNOND HealthcareStart: 08-25-2025 End: 75-04-1254Hensppv encounter rcmvtsijf55/09/2025 7:45 AM EST Appointment [facility] [address] [place] [address] [facility]: 08-04-2025 End: 62-15-9862Wbvongj encounter jidqlopzo02/18/2025 8:30 AM EST Routine [facility] [address] [place], [id number] Pee Del Rio DO [address] [place] [address] [facility]: 08-04-2025 End: 32-31-0238Wkxwmsbsdoak / ancillary services /18/2025 8:00 AM EST Ancillary Procedure [facility] [address] [place] [address] [facility]YNStart: 07-07-2025 End: 40-59-6528VJT panel - Blood by Automated countCBC Lab Routine Diabetes mellitus screening Expected: 07/07/2025 (Approximate), Expires: 07/07/2026[facility] Work Phone: comment on above:Expected: 07/07/2025 (Approximate), Expires: 07/07/2026Start: 07-07-2025 End: 14-02-7963Epodlhdvzgd of glucose 1 hour after glucose challenge for glucose tolerance testGlucose tolerance, 1 hour Lab Routine Diabetes mellitus screening Expected: 07/07/2025 (Approximate), Expires: 07/07/2026[facility] HealthcareComment on above:Expected: 07/07/2025 (Approximate), Expires: 07/07/2026Start: 07-07-2025 End: 19-48-3914Dmlswzh encounter procedureNOMS Earle OBGYNComment on above: ArrivedStart: 06-09-2025 End: 88-63-2492Tfnggyx encounter procedureNOMS Randolph OBGYNComment on above: ArrivedStart: 11-80-0009QHBJO-19 Vaccine ( season)COVID-19 Vaccine ()[facility]Start: 10-13-6792RAEMP-19 Vaccine ()COVID-19 Vaccine ()[facility] Start: 47-76-9338Tsyeiawxg vaccinationNOMS HealthcareStart: 05-12-2025 End: 54-44-0808Gmozw fetoprotein, maternalAlpha fetoprotein, maternal Lab Routine 15 weeks gestation of ([facility]) Expected: 05/12/2025 (Approximate), Expires: 07/12/2025N[facility] HealthcareComment on above:Expected: 05/12/2025 (Approximate), Expires: 07/12/2025Start: 05-12-2025 End: 55-83-2892LW for pregnancyUS OB 14+ weeks anatomy scan Imaging Routine Screening, , for anatomic survey ([facility]) Expected: 05/12/2025, Expires: 08/12/2025NOND HealthcareComment on above:Expected: 05/12/2025, Expires: 08/12/2025Start: 05-12-2025 End: 37-29-1500Weosnfm encounter procedureNOMS Earle OBGYNComment on above: ArrivedStart: 04-28-2025 End: 83-96-6632Fscurwk encounter procedureNOMS BCP OBStart: 04-21-2025 End: 09-05-5199Pbezqag encounter procedureNOMS BCP OBComment on above:Arrived Start: 04-07-2025 End: 33-85-1627Letwvvtvkqqm / ancillary services tyoiyvneaj16/22/2025 9:30 AM EDT Ancillary Procedure [facility] [address] [place] [address] [facility] OBStart: 03-27-2025 End: 06-56-0015OJJ/RhABO/Rh Lab Routine Missed menses , unspecified gestational age ([facility]) Expected: 03/27/2025 (Approximate), Expires: 03/27/2026NOND HealthcareComment on above:Expected: 03/27/2025 (Approximate), Expires: 03/27/2026Start: 03-27-2025 End: 19-31-2719Uupmi type and Indirect antibody screen panel - BloodType and screen Lab Routine Missed menses , unspecified gestational age ([facility]) Expected: 03/27/2025 (Approximate), Expires: 03/27/2026[facility] Work Phone: comment on above:Expected: 03/27/2025 (Approximate), Expires: 03/27/2026Start: 03-27-2025 End: 53-53-7602Zpehe of abuse panel - Urine by Screen methodRapid drug screen, urine Lab Routine , unspecified gestational age ([facility]) Encounter for supervision of normal first in first trimester ([facility]) Expected: 03/27/2025 (Approximate), Expires: 03/27/2026NOND HealthcareComment on above: Expected: 03/27/2025 (Approximate), Expires: 03/27/2026Start: 03-27-2025 End: 70-57-4514IB Pelvis transvaginalUS OB transvaginal Imaging Routine , unspecified gestational age ([facility]) Encounter for supervision of normal first in first trimester ([facility]) Expected: 03/27/2025, Expires: 06/27/2025NOND HealthcareComment on above:Expected: 03/27/2025, Expires: 06/27/2025Start: 03-10-2025 End: 39-16-3217Dlihexw encounter czqbcqexc21/24/2025 8:40 AM EDT Office Visit [facility] [address] [place] [phone] Pee Del Rio, DO [address] [facility] [place] [address] [facility] OBStart: 11-04-2024 End: 69-90-9705Hyydoejgkzvbl hormone (AMH)Antimullerian hormone (AMH) Lab Routine PCOS (polycystic ovarian syndrome) Abnormal uterine bleeding (AUB) Expected: 11/04/2024 (Approximate), Expires: 11/04/2025NOND HealthcareComment on above:Expected: 11/04/2024 (Approximate), Expires: 11/04/2025Start: 11-04-2024 End: 14-36-9243ECCOZHLR Lab Routine PCOS (polycystic ovarian syndrome) Expected: 11/04/2024 (Approximate), Expires: 11/04/2025N[facility] HealthcareComment on above: Expected: 11/04/2024 (Approximate), Expires: 11/04/2025Start: 11-04-2024 End: 29-05-9114CD PelvisUS Pelvis w/ TV Imaging Routine PCOS (polycystic ovarian syndrome) Expected: 11/04/2024, Expires: 11/04/2025NOND HealthcareComment on above:Expected: 11/04/2024, Expires: 11/04/2025Start: 11-04-2024 End: 71-62-6290Mgwednz encounter kbalujsjq27/18/2025 8:40 AM EST Office Visit [facility] [address] [place] [phone] Pee Del Rio, DO [address] [facility] [address] [place] [address] [address] [facility]rivedKA[facility] OBComment on above:ArrivedStart: 72-14-5034Rystmppgx vaccinationInfluenza Vaccine (#1)[facility] HealthcareStart: 25-30-8355Ndvpsxhov vaccinationINFLUENZA (#1)[facility]: 05-18-2021 Influenza vaccinationINFLUENZA (#1)[facility]: 11-33-7030BPO TESTING HPV TESTINGCorey Hospitaltart: 66-93-9301NFG Vaccines (1 - 3-dose standard series)[facility]: 56-86-4306NJZ TESTINGPAP TESTING [facility]: 82-93-5436Natjmtrtt for malignant neoplasm of cervix [facility]: 87-29-7252Chxpcquxw B Vaccines (1 of 3 - 19+ 3-dose series)Hepatitis B Vaccines (1 of 3 - 19+ 3-dose series)[facility]Start: 03-60-6107Zpjoy microalbumin profileDTAP,TDAP,TD (1 - Tdap) [facility]: 67-58-6774Xkccmwth mellitus screeningDiabetes Screening [facility]: 51-73-1408Drmpmnifm C screeningHepatitis C ScreeningUnVeterans Health Administration: 47-20-6961JBP SCREENINGHIV SCREENINGCorey Hospitaltart: 18-97-4432Mfjtkho of varicella vaccination Varicella Vaccines (1 of 2 - 13+ 2-dose series)[facility] InstituteStart: 2000 Adult depression screening assessmentDEPRESSION SCREENINGCorey Hospitaltart: 53-46-8353Uhutxfovp B Vaccines (2 of 3 - 3-dose series)Hepatitis B Vaccines (2 of 3 - 3-dose series)[facility]: 01-10-1995 DTaP/Tdap/Td Vaccines (1 - Tdap)DTaP/Tdap/Td Vaccines (1 - Tdap)[facility] Start: 35-81-1313CFVVS-19 VACCINE (1)COVID-19 VACCINE (1)[facility]: 70-51-7093CTI Vaccines (1 of 1 - Standard series)MMR Vaccines (1 of 1 - Standard series)[facility] InstituteStart: 37-26-5484CTQSVXNCZ B (1 of 3 - 3-dose series) HEPATITIS B (1 of 3 - 3-dose series)[facility]: 63-49-4548MZA screeningHIV ScreeningTr[facility] Health [facility]: 57-25-7276Bftik panelLipid PanelUnVeterans Health Administration: 77-19-2533Kgvwmn Adult PhysicalYearly Adult PhysicalUnCleveland Clinic Union HospitalBacteria identified in Urine by CultureUrine culture Microbiology Routine Missed menses Ordered: 03/27/2025[facility] HealthcareComment on above:Ordered: 03/27/2025BC W Auto Differential panel - BloodCBC and differential Lab Routine PCOS (polycystic ovarian syndrome) Ordered: 11/04/2024[facility] HealthcareComment on above:Ordered: 11/04/2024BC W Auto Differential panel - BloodCBC and differential Lab Routine Missed menses , unspecified gestational age ([facility]) Ordered: 03/27/2025[facility] HealthcareComment on above:Ordered: 03/27/2025HLAMYDIA TRACHOMATIS (GENITO/STI)CHLAMYDIA TRACHOMATIS (GENITO/STI) Lab Routine STD exposure Ordered: 05/12/2025[facility] HealthcareComment on above:Ordered: 05/12/2025 Cytology Cervical or vaginal smear or scraping studyPap Smear Pathology and Cytology Routine Well woman exam with routine gynecological exam Ordered: [facility] HealthcareComment on above:Ordered: 05/12/2025DHEA-sulfateDHEA- sulfate Lab Routine PCOS (polycystic ovarian syndrome) Ordered: 11/04/2024[facility] HealthcareComment on above:Ordered: 11/04/2024Follicle stimulating hormone Follicle stimulating hormone Lab Routine PCOS (polycystic ovarian syndrome) Ordered: 11/04/2024[facility] HealthcareComment on above:Ordered: 11/04/2024hCG, quantitative, pregnancyhCG, quantitative, Lab Routine PCOS (polycystic ovarian syndrome) Ordered: 11/04/2024[facility] Healthcare Work Phone: comment on above:Ordered: 11/04/2024Hemoglobin A1c/Hemoglobin.total in BloodHemoglobin A1c Lab Routine Abnormal uterine bleeding (AUB) Ordered: 11/04/2024[facility] HealthcareComment on above:Ordered: 11/04/2024Hemoglobin A1c/Hemoglobin.total in BloodHemoglobin A1c Lab Routine Missed menses , unspecified gestational age ([facility]) Ordered: 0 03/27/2025[facility] HealthcareComment on above:Ordered: 03/27/2025Hepatitis B virus surface Ag [Presence] in Serum or Plasma by ImmunoassayHepatitis B surface antigen Lab Routine Missed menses , unspecified gestational age ([facility]) Ordered: 03/27/2025[facility] HealthcareComment on above:Ordered: 03/27/2025 Hepatitis C virus Ab [Presence] in Serum or Plasma by ImmunoassayHepatitis C antibody Lab Routine Missed menses , unspecified gestational age ([facility]) Ordered: 03/27/2025[facility] HealthcareComment on above:Ordered: 03/27/2025 HIV-1/HIV-2 antigen/antibody combination immunoassayHIV-1 and HIV-2 antibodies Lab Routine Missed menses , unspecified gestational age ([facility]) Ordered: 03/27/2025[facility] HealthcareComment on above:Ordered: 03/27/2025Human papilloma virus DNA [Presence] in Unspecified specimen by Probe with amplificationHPV DNA probe, amplified Microbiology Routine Well woman exam with routine gynecological exam Ordered: 05/12/2025[facility] HealthcareComment on above: Ordered: 05/12/2025Luteinizing hormoneLuteinizing hormone Lab Routine PCOS (polycystic ovarian syndrome) Ordered: 11/04/2024[facility] HealthcareComment on above:Ordered: 11/04/2024Neisseria gonorrhoeae DNA [Presence] in Unspecified specimen by OLGA with probe detectionNeisseria gonorrhea DNA probe, direct Lab Routine STD exposure Ordered: 05/12/2025[facility] HealthcareComment on above:Ordered: 05/12/2025ProgesteroneProgesterone Lab Routine PCOS (polycystic ovarian syndrome) Hormone disorder Ordered: 11/04/2024[facility] HealthcareComment on above: Ordered: 11/04/2024Reagin Ab [Presence] in Serum by RPRRPR Lab Routine Missed menses , unspecified gestational age ([facility]) Ordered: 03/27/2025[facility] HealthcareComment on above:Ordered: 03/27/2025Rubella antibody, IgGRubella antibody, IgG Lab Routine Missed menses , unspecified gestational age ([facility]) Ordered: 03/27/2025[facility] HealthcareComment on above:Ordered: 03/27/2025 SURESWAB(R) ADVANCED VAGINITIS PLUS, TMASURESWAB(R) ADVANCED VAGINITIS PLUS, TMA Pathology and Cytology Routine STD exposure Ordered: 05/12/2025[facility] Healthcare Work Phone: comment on above:Ordered: 05/12/2025Thyrotropin [Units/volume] in Serum or PlasmaTSH Lab Routine PCOS (polycystic ovarian syndrome) Ordered: 11/04/2024[facility] HealthcareComment on above:Ordered: 11/04/2024 Thyroxine (T4) free [Mass/volume] in Serum or PlasmaT4, free Lab Routine PCOS (polycystic ovarian syndrome) Ordered: 11/04/2024[facility] HealthcareComment on above:Ordered: 11/04/2024 End: 86-16-3503AW for pregnancyUS OB follow up transabdominal approach Imaging Routine 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[facility]) Advanced maternal age, primigravida, antepartum ([facility]) every 4 weeks for 6 Occurrences starting 07/07/2025until 01/05/2026N[facility] HealthcareComment on above:every 4 weeks for 6 Occurrences starting 07/07/2025 until 01/05/[facility] Immunization DateImmunizationNotesCare TloxmzykMasfwgwf81-81-5641powsfvchs virus vaccine, unspecified formulationCorey Eliane DO Work Phone: [facility] InstituteTqyenjwmxs53-39-0987mitkffqqf, unspecified formulationCorey ELIANE 801-7965Bpiyrg-YlqhpOhiohealth Grove City Methodist Hospital 27-37-1165munjnrspw virus vaccine, unspecified formulationCorey Eliane DO Work Phone: [phone]-QoifiOhiohealth Grove City Methodist Hospital Comment on above:Result Comment: 2024-05-01: VIS DATE: SARS-CoV-2 (COVID-19) mRNAMUL.ORD![id number] ELIANE 141-3571Vtowwo-CgfguOhiohealth Grove City Methodist Hospital 85-35-0362esqjkztkn virus vaccine, unspecified formulationCorey ELIANE 287-4130Eytcah-XlhceOhiohealth Grove City [facility] Hospital Comment on above:Result Comment: 2024-05-01: VNTS06-26-6036gifinhu toxoid, reduced diphtheria toxoid, and acellular pertussis vaccine, adsorbedCorey ELIANE 680-6940Pkgvcg-XuewaPaulding County Hospitalue Comment on above:Result Comment: 2024-05-01: VIS DATE: influenza virus vaccine, unspecified formulationCorey ELIANE 733-0153Nbswrb-Rwjhg[address] [place] [address] 37-55-9712IUOV-CoV-2 (COVID-19) mRNA-1273 vaccineCorey ELIANE 286-6662Srfqne-Krrcg[address] [place] [address] 37-23-9620rmkfncwxq virus vaccine, unspecified formulationCorey ELIANE 569-0220Ijlwgm-Nnwao[address] [place] [address] Comment on above:Result Comment: 2024-05-01: IPUX29-69-7818NCWE-DqU-1 (COVID-19) mRNA BNT-162b2 vaxCorey ELIANE 038-6031Gyottp-Mpozw[address] [place] [address] Comment on above:Result Comment: 2024-05-01: YAM8399-80-3865MXRM-EnS-0 (COVID- 19) mRNA BNT-162b2 vaxCorey ELIANE 762-6397Nslpiv-Mpsnx[address] [place] [address] Comment on above:Result Comment: 2024-05-01: SPB2937-28-3906PADD-CsU-7 (COVID- 19) mRNA-1273 vaccineCorey ELIANE 048-8194Wgfest-Uqpdt[address] [place] [address] 96-94-3421VEFN-CoV-2 (COVID-19) mRNA-1273 vaccineCorey ELIANE 145-3030Lwljfw-Fkaxi[address] [place] [address] 00-40-8547oblrumvtp virus vaccine, unspecified formulationCorey ELIANE 697-6704Jxklhb-Hfspn[address] [place] [address] 43-04-2564vomnhmuji virus vaccine, unspecified formulationCorey ELIANE 699-0405Csfntw-Jpuim[address] [place] [address] 86-99-3184ubqjlvwuo virus vaccine, unspecified formulationCorey ELIANE 818-1743Gbtbrq-HdcleOhiohealth Grove City [facility] Hospital 93-02-0767btjzmdxex virus vaccine, unspecified formulationCorey ELIANE 642-6176Oafusy-FwtjbOhiohealth [facility] 74-23-8267efwbmcjzf virus vaccine, unspecified formulationCorey ELIANE 903-1208Hrkrhf-GiypoOhiohealth Grove [facility] Hospital 73-97-4020czwtjhm toxoid, reduced diphtheria toxoid, and acellular pertussis vaccine, adsorbedCorey ELIANE 988-3039Mxmatf-YdmmqOhiohealth Grove City [facility] Hospital 32-22-5806ajlknty, mumps and rubella virus vaccineCorey ELIANE 223-1776Unqbzm-XgixlOhiohealth Grove City [facility] Hospital 44-89-1029kpkmlipfi B vaccine, pediatric or pediatric/adolescent dosageCorey ELIANE 386-9982Fsxyei-ZiwqkOhiohealth Grove City [facility] Hospital Payers DatePayer CategoryPayerPolicy [id number] Care (Private)[employer] [facility] [id number] Health InsuranceLICKING MEMORIAL HOSPITALCAL MUTUAL [id number] MMO SUPERMED PLUS [id number] 2021-Present [phone] [address] [place] [address] [id number]. Unknown1.2.840.746889.1.13.159.2.7.3.695[id number] [id number] 2.16840.1.289626.3.57[id number] 2.160.1.402248.3.579.2.[id number] 2.160.1.908235.3.579.2.45591-19-8186Uxuzjqd54379354 2.16840.1.261358.3.579.2.57385-16-8028Cgczjys78316030 2.160.1.074693.3.579.[id number] 2.16840.1.980538.3.579.[id number] 2.16.840.1.961194.3.579.2.44786-40-7284Hqnlvbr30993057 2.16840.1.365312.3.579.2.43153-38-2148Yhgyxna85647924 2.16840.1.270244.3.579.2.39668-81-3556Ebndknb40354868 2.16.840.1.963304.3.579.2.58256-50-1048Thdlhqv99775136 2.840.1.164485.3.579.2.84636-82-8314Gukqhsm04956013 2..840.1.802481.3.579.2.89100-96-8315Iufxyyu32916348 2.0.1.817027.3.579.2.49091-50-3789Stcwrft71305280 2.0.1.253707.3.579.2.91688-52-5000Ssbcxdn43995266 2.0.1.633056.3.579.2.26811-25-2280Xkornyo56112081 2.0.1.064145.3.579.2.50671-84-7822Zwywgpl13754204 2.0.1.167923.3.579.2.61364-31-7081Fkrzgrq07641575 2..1.376916.3.579.2.76425-22-9100Onqelvx18278971 2.0.1.488161.3.579.2.326426-10-8380Mcxtcyl94401053 2.0.1.076983.3.579.2.292201-67-9135Dlwokee81481303 2.0.1.818257.3.579.2.769630-76-9843Iwtsust18942180 2.840.1.533438.3.579.2.183746-11-7299Bpyoqqf80679649 2.840.1.422501.3.579.2.361204-96-6552Nwmrdgh69851048 2.840.1.424847.3.579.2.935843-65-8871Lhhplri34782564 2..840.1.813586.3.579.2.393570-73-2758Yjtyjxf1297497 2.16.840.1.222470.3.579.2.8366LvtmprxBYCH54347626 Social History DateTypeDetailFacilityStart: 09-02-2012 End: 05-65-5526Yetyoat smoking status NHISNever smoked tobaccoVeterans Health Administration Start: 09-02-2012 End: 51-11-2855Nlvtcgy intakeCurrent non-drinker of alcohol (finding)[facility]: 96-65-4291Zct Assigned At [facility] ClinicExposure to SARS-CoV-2 (event)YesCorey Hospitaltart: 64-02-6705Hcvobgb use and exposure Smokeless tobacco non-userVeterans Health AdministrationTobacco smoking status NHISTobacco smoking consumption unknownNOND HealthcareStart: 21-10-4221Hygeqp identity Identifies as female gender (finding)[facility] HealthcareStart: 21-79-3634Qbkxqs orientationHeterosexual (finding)[facility] HealthcareStart: 01-27-2024 End: 77-80-3230Djxubkm smoking statusNeProMedica Flower Hospital Family Medicine BellevueSex Assigned At [facility] Start: 23-10-1368VslKagodr (finding)[facility] Limatart: 12-49-5085WykedcorhNDAQ HealthcareStart: 19-04-2953Rwa assigned at birthNot [facility] Work Phone: Clinical Notes 10-12-2021 to 07-07-2025 Note Date & PcumEmeqMmdjzucc26-22-6133 History of Present illness Narrative* Arline Marcos LPN - 07/07/2025 8:30 AM EDT Reason for [...] (polycystic ovarian syndrome) 02/24/2025 Positive urine test ([facility]) 02/24/2025 Resolved Ambulatory Problems Diagnosis Date Noted [...] nursing note reviewed. Exam conducted with a senior lead project manager present. Vitals: There is no height or weight on file to calculate BMI. BP: 120/80 Patient's last menstrual period was 01/25/2025. Assessment/Plan ICD-10-CM 1. 23 weeks gestation of ([facility]) Z3A.23 POCT urinalysis dipstick manually resulted 2. Second trimester ([facility]) Z34.92 POCT urinalysis dipstick manually resulted 3. Diabetes mellitus screening Z13.1 CBC Glucose tolerance, 1 hour CBC Glucose tolerance, 1 hour 4. 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 Advanced maternal age, primigravida, antepartum ([facility]) O09.519 US OB follow up transabdominalapproach Patient [...] Pee Del Rio DO documented in this encounterFreeman Heart InstituteRmbjinqxue54-22-6827 NoteNurse Consultation Note Reason for Visit employee flu vaccine Assessment/Plan 1. Immunization due (Z23: Encounter for immunization) Medications Fluzone PF Prefilled Syringe [id number], 0.5 mL, IntraMuscular, Once Allergies No Known Allergies Immunizations Vaccine Date Status Comments influenza, unspecified formulation 06/18/2023 Given influenza virus vaccine, inactivated 06/18/2023 Recorded 2024-05-01: VIS DATE: 04/22/2021 SARS-CoV-2 (COVID-19) mRNAMUL.ORD![id number] 09/15/2022 Recorded influenza virus vaccine, inactivated 07/10/2022 [...] 01/30/2000 Recorded hepatitis B pediatric vaccine 02/15/1999 [facility] 06-09-2025 History of Present illness Narrative* Arlineenoch Marcos, CREDIT RISK MANAGER - 06/09/2025 9:10 AM EDT Reason for [...] (polycystic ovarian syndrome) 02/24/2025 Positive urine test ([facility]) 02/24/2025 Resolved Ambulatory Problems Diagnosis Date Noted [...] nursing note reviewed. Exam conducted with a senior lead project manager present. Vitals: There is no height or weight on file to calculate BMI. BP: 122/86 Patient's last menstrual period was 01/25/2025. ASSESSMENT & PLAN ICD-10-CM 1. Second trimester ([facility]) Z34.92 POCT urinalysis dipstick manually resulted 2. 19 weeks gestation of ([facility]) Z3A.19 Patient presents today for a routine obstetrics appointment. Patient is currently 19w2d with a Estimated Date of Delivery: 11/01/25. Pt has anatomy scan at [facility]. Pt given meclizine for nausea.Pt to call in one week if not working and will order zofran pump through [employer]. Pt to return in 4 weeks for scheduled OB appt. Documented by Arline Marcos LPN on behalf of: Pee Del Rio DO, Amy Ramey, PA-C documented in this encounterFreeman Heart [id number] NoteNurse Consultation Note Reason for Visit Pt presents today for repeat lab draw. Assessment/Plan 1. Wellness examination (Z00.00: Encounter for general adult medical examination without abnormal findings) Medications No active medications Allergies No Known Allergies Immunizations Vaccine Date Status Comments influenza, unspecified formulation 06/18/2023 Given influenza virus vaccine, inactivated 06/18/2023 Recorded 2024-05-01: VIS DATE: 04/22/2021 SARS-CoV-2 (COVID-19) mRNAMUL.ORD![id number] 09/15/2022 Recorded influenza virus vaccine, inactivated 07/10/2022 [...] 01/30/2000 Recorded hepatitis B pediatric vaccine 02/15/[facility] NoteNurse Consultation Note Reason for Visit patient came IO for lab draw Assessment/Plan 1. Wellness examination (Z00.00: Encounter for general adult medical examination without abnormal findings) Medications No active medications Allergies No Known Allergies Immunizations Vaccine Date Status Comments influenza, unspecified formulation 06/18/2023 Given influenza virus vaccine, inactivated 06/18/2023 Recorded 2024-05-01: VIS DATE: 04/22/2021 SARS-CoV-2 (COVID-19) mRNAMUL.ORD![id number] 09/15/2022 Recorded influenza virus vaccine, inactivated 07/10/2022 [...] 01/30/2000 Recorded hepatitis B pediatric vaccine 02/15/1999 [facility] NotePatient Education Health Maintenance, Female [...] much you have to: (more content not included)...[facility]08-26-[facility] History of Present illness Narrative* Arline [...] (polycystic ovarian syndrome) 02/24/2025 Positive urine test ([facility]) 02/24/2025 Resolved Ambulatory Problems Diagnosis Date Noted [...] nursing note reviewed. Exam conducted with a senior lead project manager present. Vitals: There is no height or weight on file to calculate BMI. BP: 138/82 Patient's last menstrual period was 01/25/2025. ASSESSMENT & PLAN ICD-10-CM 1. Screening, , for anatomic survey ([facility]) Z36.89 US OB 14+ weeks anatomy scan US OB 14+ weeks anatomy scan 2. Well woman exam with routine gynecological exam Z01.419 Pap Smear HPV DNA probe, amplified 3. Second trimester ([facility]) Z34.92 POCT urinalysis dipstick manually resulted 4. 15 weeks gestation of ([facility]) Z3A.15 Alpha fetoprotein, maternal Alpha fetoprotein, maternal 5. STD exposure Z20.2 SURESWAB(R) ADVANCED VAGINITIS PLUS, TMA CHLAMYDIA TRACHOMATIS (GENITO/STI) Neisseria gonorrhea DNA probe, direct 6. Nausea R11.0 promethazine (Phenergan) 12.5 MG tablet Return OB/Annual Exam: Patient presents today for a annual exam/routine obstetrics appointment. Patient is currently [id number]. Patient states she is doing well but has complaints of nausea in the morning. Pap and cultures was obtained without difficulty and patient was given orders for anatomy scan and msAFP to be obtained. Pt still having complaints of nausea and vomiting, rx for phenergan faxed to pharmacy. Pt to take phenergan and zofran. [facility] to be referred to [facility] for vanishing twin and AMA Orders [...] Pee Del Rio DO documented in this encounterFreeman Heart [id number] History of Present illness Narrative* Madisyn Ryder [...] (polycystic ovarian syndrome) 02/24/2025 Positive urine test ([facility]) 02/24/2025 Resolved Ambulatory Problems Diagnosis Date Noted [...] nursing note reviewed. Exam conducted with a senior lead project manager present. Vitals: There is no height or weight on file to calculate BMI. BP: Patient's last menstrual period was 01/25/2025. ASSESSMENT & PLAN ICD-10-CM 1. First trimester ([facility]) Z34.91 2. 13 weeks gestation of ([facility]) Z3A.13 New OB: Patient presents today for [...] or undercooked meat, and stay away from [facility]. Patient has been consulted regarding any further do's and don'tsof . Patient voiced understanding and all questions and concerns were answered. No orders of the defined types were placed in this encounter. Follow Up: Patient is to return in 4 weeks for routine OB appointment. Documented by Arline Marcos LPN on behalf of: Pee Del Rio DO documented in this encounterFreeman Heart [id number] History of Present illness Narrative* Kyra Dillard [...] (polycystic ovarian syndrome) 02/24/2025 Positive urine test ([facility]) 02/24/2025 Resolved Ambulatory Problems Diagnosis Date Noted [...] dipstick manually resulted , unspecified gestational age ([facility]) - Type and screen; Future - ABO/Rh; Future - CBC and differential - Hemoglobin A1c - RPR - Rubella antibody, IgG - Hepatitis B surface antigen - Hepatitis C antibody - HIV-1 and HIV-2 antibodies - Rapid drug screen, urine; Future - OB transvaginal; Future Encounter for supervision of normal first in first trimester ([facility]) - Rapid drug screen, urine; Future - [...] or undercooked meat, and stay away from [facility]. Patient has also been advised to [...] aware she will need to wait for [place] labs to be given until verified. Script [...] by: Kyra Dillard LPN documented in this encounterFreeman Heart [id number] Evaluation + Plan note Diagnostic Tests Pending * DHEA 12/22/24 [facility] 03-10-2025 NoteNurse Consultation Note Reason for [...] Recorded 2024-05-01: VIS DATE: 04/22/2021 SARS-CoV-2 (COVID-19) mRNAMUL.ORD![id number] 09/15/2022 Recorded influenza virus vaccine, inactivated 07/10/2022 [...] 01/30/2000 Recorded hepatitis B pediatric vaccine 02/15/1999 [facility] Evaluation + Plan note Diagnostic Tests Pending * Progesterone Level 11/24/24 [facility] 02-18-2025 History of Present illness Narrative* [...] nursing note reviewed. Exam conducted with a senior lead project manager present. Vitals: There is no height [...] Pee Del Rio DO documented in this encounterFreeman Heart [id number] NotePatient Education Genetic Medicine Diet for Metabolic Syndrome Metabolic syndrome is a disorder that includes three or more of the following conditions: ??? Abdominal obesity, as seen in a large waist measurement. ??? Too much sugar (glucose) in your blood. ??? High blood pressure (hypertension). ??? Kcjgpt-scpe-tafkke amount of fat (lipids) in your blood. ??? Iwqec-ifaw-msnjwq level of good cholesterol (HDL). Keeping an [...] beans. Tomatoes. Squash. Eggplant. Peppers. Onions. Cucumbers. [place] sprouts. Sweet potatoes. Yams. Beans. Lentils. Grains [...] healthy fats, nuts, a (more content not included)...[facility]09-22-2022 NoteHNO ID: [id number] Author: Angelia Mccarthy MD Service: ? Author [...] Angelia Mccarthy MD June 08, 2022 8:13 [facility] 06-08-2022 History of Present illness Narrative* Angelia [...] 08, 2022 8:13 AM documented in this encounterVeterans Health Administration01-26-2022 NoteHNO ID: [id number] Author: Jennie Gamez OD Service: ? Author Type: PARAMEDIC RN Type: Progress Notes Filed: 10/18/2021 1:30 PM [...] all of its relevant components. Jennie Gamez ODUc HealthEvjackson medical centeration + Plan note Future Appointments Appointment Date:11/11/2024 12:00:00 PM Scheduled Provider: Location:[facility] Appointment Type:US Abdominal/Pelvis ([facility]) Diagnostic Tests Pending * Luteinizing Hormone 11/05/24 * FSH Level 11/05/24 * DHEA 11/05/24 * DHEAS 11/05/24 * Anti-Mullerian Hormone ([facility]) 11/05/24 Future Scheduled Tests Radiology* US Pelvis Non-OB Complete 11/11/24 * US Transvaginal Non-OB 11/11/24 [facility] Evaluation note* Diagnosis Myopic astigmatism of both eyes- Primary Refractive error Unspecified disorder of refraction and accommodation documented in this encounter [facility] AdministrationEval[facility]* Diagnosis Encounter for infertility PCOS (polycystic ovarian syndrome) Polycystic ovaries Abnormal uterine bleeding (AUB) Hormone disorder Unspecified endocrine disorder documented in this encounter [facility] HealthcareEvaluation note* Diagnosis Missed menses , unspecified gestational age ([facility]) Encounter for supervision of normal first in first trimester ([facility]) Nausea Nausea alone documented in this encounter [facility] HealthcareEvaluation note* Diagnosis First trimester ([facility]) state, incidental 13 weeks gestation of ([facility]) documented in this encounter [facility] HealthcareEvaluation note* Diagnosis Screening, , for anatomic survey ([facility]) Encounter for anatomic survey Well woman exam with routine gynecological exam Routine gynecological examination Second trimester ([facility]) state, incidental 15 weeks gestation of ([facility]) STD exposure Nausea Nausea alone documented in this encounter [facility] HealthcareEvaluation note* Diagnosis Second trimester ([facility]) state, incidental 19 weeks gestation of ([facility]) Nausea Nausea alone documented in this encounter [facility] HealthcareEvaluation note* Diagnosis Encounter for supervision of normal , unspecified, unspecified trimester ([facility]) documented in this encounter [facility] Work Phone: Evaluation note* Diagnosis 23 weeks gestation of ([facility]) Second trimester ([facility]) state, incidental Diabetes mellitus screening Screening for diabetes mellitus 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[facility]) Advanced maternal age, primigravida, antepartum ([facility]) Elderly primigravida, antepartum documented in this encounter [facility] Narrative No data available for this section [facility] Hospital Discharge instructions No data available for this section [facility] Progress note No data available for this section [facility] Reason for visit Narrative* Imaging (Routine) - AuthorizedSpecialtyDiagnoses / ProceduresReferred By ContactReferred To ContactRadiology Diagnoses Encounter for supervision of normal , unspecified, unspecified trimester ([facility]) Procedures US OB detail anatomy Pee Del Rio DO [address] [facility] [address], [place] [address] Phone: tel: fax: Referral IDStatusReasonStart DateExpiration DateVisits RequestedVisits [id number] Perform Procedure / [facility] Work Phone: Summary Purpose Family History No [...] section and content) DATE CREATED AUTHOR 03/11/2018 [facility] DATE CREATED AUTHOR AUTHOR'S ORGANIZ ATION 09/03/2021 [facility] DATE CREATED AUTHOR AUTHOR'S ORGANIZ ATION 06/18/2022 [facility] DATE CREATED AUTHOR AUTHOR'S ORGANIZ ATION 08/17/2022 [facility] DATE CREATED AUTHOR AUTHOR'S ORGANIZ ATION 04/24/2024 [facility] EPIC DATE CREATED AUTHOR AUTHOR'S ORGANIZ ATION 11/06/2024 [facility] DATE CREATED AUTHOR AUTHOR'S ORGANIZ ATION 11/07/2024 [facility] DATE CREATED AUTHOR AUTHOR'S ORGANIZ ATION 11/09/2024 [facility] DATE CREATED AUTHOR AUTHOR'S ORGANIZ ATION 11/12/2024 [facility] DATE CREATED AUTHOR AUTHOR'S ORGANIZ ATION 12/06/2024 [facility] DATE CREATED AUTHOR AUTHOR'S ORGANIZ ATION 12/24/2024 [facility] DATE CREATED AUTHOR AUTHOR'S ORGANIZ ATION 06/09/2025 [facility] DATE CREATED AUTHOR AUTHOR'S ORGANIZ ATION 06/29/2025 [facility] DATE CREATED AUTHOR AUTHOR'S ORGANIZ ATION 07/08/2025 [facility] EPIC Source Comments (unrecognize d section and content) In the event this informatio n is protected by the Federal Confidentiality of Alcohol and Drug Abuse Patient Records regulations: The Federal rules restrict any use of the information to criminally investigate or prosecute any alcohol or drug abuse patient.[facility] Health AdministrationIn the event this information is protected by the Federal Confidentiality of Alcohol and Drug Abuse Patient Records regulations: The Federal rules restrict any use of the information to criminally investigate or prosecute any alcohol or drug abuse patient.[facility] Care Teams (unrecognized sec tion and content) Team MemberRelationshipSpecialtyStart DateEnd Date Casandranemomo Li [id number] [facility] [address] [place] [address] PCP - [id number]/17/12Team MemberRelationshipSpecialtyStart DateEnd Date CasandraalainaLi lima [id number] [facility] [address] [place], [place] [id number] PCP - [id number]/17/12 Reason for Visit (unrecogniz ed section and [...] BE BASED ON THE PRIMARY CLINICAL RECORDS. [facility]. provides no warranty or guarantee of the accuracy or completeness of information in this document.
--- NOTE | 2025-09-15 07:09 | US_ITS ---
[facility] [place] [id number] Patient Name: JASON CORONEL MRN: [id number] date: 1990 Sex: F Assigned Patient Location: Current Patient Location: [place] Accession/Order Number: [id number] Exam Date: 09/15/2025 07:10 Report Date: 09/15/2025 11:06 At the request of: SHARMILA MURRAY DO Procedure: US OB BPP w non-stress BIOPHYSICAL PROFILE: CLINICAL INFORMATION: AMA, Vanishing twin syndrome COMPARISON: None A single live intrauterine gestation in cephalic presentation is visualized. The reported gestational age is 33 weeks 2 days. The heart rate measures 126 beats per minute. FINDINGS: TONE: 1 or more episodes of activity extension and flexion of extremity or opening and closing of the hand [Y] 2/2 GROSS BODY MOVEMENTS: 3 or more discrete body or limb movements [Y] 2/2 BREATHING MOVEMENTS: 1 or more episodes of breathing lasting at least 30 seconds [Y] 2/2 SHERRI: A single deepest vertical pocket of amniotic fluid greater than 2 cm [Y] 2/2 SHERRI: 8.9 cm . The 5th percentile is 8.3 cm. Total score: 8/8 US/US OB BPP w non-stress IMPRESSION: NORMAL BIOPHYSICAL PROFILE. BORDERLINE OLIGOHYDRAMNIOS. Impression dictated by: Arline Mesa M.D. 09/15/2025 11:06 AM Dictation Location: [employer] Electronically authenticated by: [id number] Y Date: 09/15/2025 11:06
[2025-09-15 07:17] VITALS: BP 121/90; PULSE 103
== END 2025-09-15 08:00 | disposition home or self-care (01) ==
LOC: US 07:03 → FBC 07:07
PROVIDERS: PCP Nurse Practitioner; Visit Provider Obstetrics & Gynecology
DX: O26.893 Other specified pregnancy related conditions, third trimester (principal); O09.513 Supervision of elderly primigravida, third trimester; Z3A.33 33 weeks gestation of pregnancy
CPT/HCPCS: 76818